=== PATIENT | female | born 1995 | race Caucasian/White ===

== ENCOUNTER 2023-03-14 10:32 | Outpatient (OUT) | payer OTHER, SELFPAY ==
--- NOTE | 2023-03-14 10:35 | US_ITS ---
The [address] [address] Patient Name: ABDIRAHMAN VARGAS MRN: [id number] date: 1995 Sex: F Assigned Patient Location: US Current Patient Location: US Accession/Order Number: [id number] Exam Date: 03/14/2023 11:05 Report Date: 03/14/2023 16:23 At the request of: CARLITO RAMEY Procedure: US pelvis w/ transvaginal EXAM: US pelvis w/ transvaginal HISTORY: Menorrhagia N92.0 COMPARISON: None. TECHNIQUE: Pelvic sonography was performed utilizing grayscale and color Doppler technique. FINDINGS: Anteverted, mildly retroflexed uterus measures 7.0 x 2.6 x 3.5 cm. Uterine endometrial stripe measures 0.5 cm in thickness. Right ovary measures 2.2 x 2.8 x 3.3 cm. Normal right ovarian parenchyma. Left ovary measures 2.4 x 2.7 x 2.2 cm. Normal left ovarian parenchyma. No significant free fluid within the pelvis. IMPRESSION: No findings to explain the patient's menorrhagia. Electronically authenticated by: FELICIA WADSWORTH Date: 03/14/2023 16:23
[2023-03-14 12:36] LABS: Estimated Average Glucose 97 mg/dL
[2023-03-14 12:49] LABS: Free T4 1.05 ng/dL (0.76-1.46)
[2023-03-14 12:52] LABS: Thyroid Stimulating Hormone 1.405 uIU/mL (0.358-3.740)
[2023-03-14 13:11] LABS: Basophils Percent Auto 0.4 % (0.2-2.0); Eosinophils Percent Auto 0.8 % (0.9-7.0); Hemoglobin 14.2 g/dL (12.0-16.0); Immature Granulocytes Abs Auto 0.01 10^3/uL (0.00-0.03); Immature Granulocytes Pct Auto 0.2 % (0.0-0.5); Lymphocytes Percent Auto 38.8 % (20.5-60.0); Mean Corpuscular Hemoglobin 29.6 pg (26.7-34.0); Mean Corpuscular Volume 89.8 fL (81.0-99.0); Mean Platelet Volume 9.7 fL (9.5-13.5); Monocytes Absolute Auto 0.3 10^3/uL (0.3-0.8); Monocytes Percent Auto 5.6 % (1.7-12.0); Neutrophils Absolute Auto 2.8 10^3/uL (1.4-6.5); Neutrophils Percent Auto 54.2 % (43.0-75.0); Platelet Count 196 10^3/uL (150-450); Red Blood Count 4.79 10^6/uL (4.20-5.40); Red Cell Distribution Width 12.2 % (11.0-15.0); White Blood Count 5.2 10^3/uL (4.0-11.0)
== END 2023-03-14 10:33 | disposition home or self-care (01) ==
LOC: US 10:32
PROVIDERS: PCP Family Medicine; Visit Provider Obstetrics & Gynecology
DX: N92.0 Excessive and frequent menstruation with regular cycle (principal)
CPT/HCPCS: 36415; 76830; 76856; 83036; 84439; 84443; 85025

== ENCOUNTER 2023-03-27 12:43 | Outpatient (OUT) | payer OTHER, SELFPAY ==
[2023-03-27 13:40] LABS: Basophils Percent Auto 0.2 % (0.2-2.0); Eosinophils Percent Auto 0.7 % (0.9-7.0); Immature Granulocytes Abs Auto 0.02 10^3/uL (0.00-0.03); Immature Granulocytes Pct Auto 0.3 % (0.0-0.5); Lymphocytes Absolute Auto 2.1 10^3/uL (1.2-3.8); Lymphocytes Percent Auto 34.4 % (20.5-60.0); Mean Corpuscular HGB Conc 33.3 g/dL (29.9-35.2); Mean Corpuscular Hemoglobin 29.8 pg (26.7-34.0); Mean Corpuscular Volume 89.4 fL (81.0-99.0); Mean Platelet Volume 9.4 fL (9.5-13.5); Monocytes Absolute Auto 0.4 10^3/uL (0.3-0.8); Monocytes Percent Auto 6.2 % (1.7-12.0); Neutrophils Absolute Auto 3.5 10^3/uL (1.4-6.5); Neutrophils Percent Auto 58.2 % (43.0-75.0); Platelet Count 210 10^3/uL (150-450); Red Cell Distribution Width 12.4 % (11.0-15.0)
[2023-03-27 13:48] LABS: INR 0.98; Partial Thromboplastin Time 27.8 sec (22.3-36.2); Prothrombin Time 10.4 sec (9.0-11.6)
[2023-03-27 14:09] LABS: Alanine Aminotransferase 55 U/L (14-59); Albumin Globulin Ratio 1.1; Albumin Level 3.8 g/dL (3.4-5.0); Alkaline Phosphatase 68 U/L (46-116); Anion Gap 10.9; Aspartate Amino Transferase 34 U/L (15-37); BUN Creatinine Ratio 11.6; Bilirubin Direct 0.1 mg/dL (0.0-0.2); Bilirubin Total 0.6 mg/dL (0.2-1.0); Calcium 8.5 mg/dL (8.5-10.1); Chloride 105 mmol/L (98-107); Estimated GFR (African America >60 (>=60); Estimated GFR (Non-African Ame >60 (>=60); Globulin 3.5 g/dL; Glucose 86 mg/dL (74-106); Potassium 3.9 mmol/L (3.5-5.1); Sodium 138 mmol/L (136-145); Total Protein 7.3 g/dL (6.4-8.2)
== END 2023-03-27 12:44 | disposition home or self-care (01) ==
LOC: PST 12:44
PROVIDERS: PCP Family Medicine; Visit Provider Obstetrics & Gynecology
DX: Z01.812 Encounter for preprocedural laboratory examination (principal); N92.0 Excessive and frequent menstruation with regular cycle; N94.6 Dysmenorrhea, unspecified; N94.10 Unspecified dyspareunia; R10.2 Pelvic and perineal pain
CPT/HCPCS: 36415; 80048; 80076; 85025; 85610; 85730; 86850; 86900; 86901

== ENCOUNTER 2023-04-10 11:18 | Day surgery (SDC) | payer OTHER, SELFPAY ==
[2023-03-27 12:54] VITALS: BMI 50.7
[2023-03-27 13:04] VITALS: BP 119/81; PULSE 82; RESP 18; TEMP 36.8; O2SAT 97
[2023-04-10] VITALS (16 sets, daily range): BP systolic 115–152; BP diastolic 74–94; PULSE 76–109; RESP 16–31; TEMP 36.3–36.8; O2SAT 92–100; BMI 49.9
[2023-04-10 11:36] LABS: Basophils Percent Auto 0.3 % (0.2-2.0); Eosinophils Percent Auto 0.5 % (0.9-7.0); Hematocrit 41.3 % (36.0-48.0); Hemoglobin 13.8 g/dL (12.0-16.0); Immature Granulocytes Abs Auto 0.01 10^3/uL (0.00-0.03); Immature Granulocytes Pct Auto 0.2 % (0.0-0.5); Lymphocytes Absolute Auto 2.3 10^3/uL (1.2-3.8); Lymphocytes Percent Auto 35.8 % (20.5-60.0); Mean Corpuscular HGB Conc 33.4 g/dL (29.9-35.2); Mean Corpuscular Hemoglobin 29.7 pg (26.7-34.0); Mean Corpuscular Volume 88.8 fL (81.0-99.0); Mean Platelet Volume 9.4 fL (9.5-13.5); Monocytes Absolute Auto 0.4 10^3/uL (0.3-0.8); Monocytes Percent Auto 6.5 % (1.7-12.0); Neutrophils Absolute Auto 3.6 10^3/uL (1.4-6.5); Neutrophils Percent Auto 56.7 % (43.0-75.0); Platelet Count 205 10^3/uL (150-450); Red Blood Count 4.65 10^6/uL (4.20-5.40); Red Cell Distribution Width 12.5 % (11.0-15.0); White Blood Count 6.3 10^3/uL (4.0-11.0)
[2023-04-10 12:00] LABS: HCG Quantitative <1 mIU/mL
[2023-04-10] MEDS: LACTATED RINGER'S SOLUTION 1,000 ML 50 ML IV ×2 (12:23→15:08)
[2023-04-10] MEDS: SCOPOLAMINE 1 EACH PATCH.TD.3 1 PATCH TD (12:25)
[2023-04-10] MEDS: CEFAZOLIN SODIUM/DEXTROSE,ISO 2 GM/50 ML PIGGYBACK IV ×2 (12:48→20:39)
--- NOTE | 2023-04-10 13:42 | PC.NURSE ---
1335-DR RAMEY TO [facility] TO [facility] ON PT. RETURNED AR 1400
--- NOTE | 2023-04-10 16:38 | P.ON_ITS ---
Brief Operative Note Date of procedure: 04/10/23 Pre-op diagnosis: dyspareunia, menorrhagia, dysmenorrhea Post-op diagnosis: same Procedure: NAME OF PROCEDURE: ? Robotic assisted laparoscopic hysterectomy with cystoscopy, bilateral salpingectomy PROCEDURE:? The patient was taken back to the operating room, where she was prepped and draped in the normal sterile fashion after being placed in the dorsal lithotomy position.? Patient?s anesthesia was found to be adequate.? Surgical timeout was performed using two patient identifiers.? SCDs were on and in place.? Two grams of Ancef were given prior to the surgery.? Sterile Brito catheter was inserted.? Standard size VCare was secured to the uterine cervix and the surgeon changed gloves.? Attention then was turned to the patient's abdomen, where a supraumbilical incision was then made.? Two S retractors were used to identify the patient?s fascia.? The fascia was then tented up using Ana clamps and the patient?s fascia was incised sharply.? Patient?s abdomen was identified and entered bluntly.? The patient had the trocar placed and a pneumoperitoneum was obtained.? Approximately 4 liters of CO2 gas was used.? The camera was then placed through the trocar.? At this time, two robot trocars were placed in the patient?s left and right side, two hand widths from the midline, and this was placed under direct visualization.? The patient?s tube on the right side was tented up and the vessel sealer was then used to come across the mesosalpinx, and this was carried down to the uterine ovarian ligament.? The vessel sealer wa s carried down serially to the broad ligament, to the area of the bladder flap, which was then created anteriorly, and the uterine arteries were skeletonized and sealed using the vessel sealer.? The colpotomy was made using the monopolar cautery on cut, and this was carried circumferentially, posteriorly to anteriorly, until the uterus was amputated.? The specimen was then removed intact through the vagina, without difficulty.? The vagina was then closed using two running V-Loc in a non-lock fashion.? The robot was undocked.? The abdomen was desufflated.? The skin defects were closed using 4-0 Vicryl.? Please note, the fascia was closed using 0 Vicryl.? Sponge, lap and needle counts were correct x2.? Patient was taken to recovery room in stable condition.? The patient was awakened by Anesthesia first.? Patient tolerated procedure well.??Please note left ovarian cystectomy was performed using the vessel sealer Anesthesia: NEW Surgeon: Noah Walton Manager Diversity: Maria Teresa Wu Estimated blood loss (mL): 100 Pathology: other (uterus, tubes and cervix) Condition: stable Disposition: PACU
--- NOTE | 2023-04-10 17:52 | PC.NURSE ---
RX for Percocet and Ibuprofen given to to get filled now
--- NOTE | 2023-04-10 19:39 | PC.NURSE ---
4 small dressings on abdomen. scant amount of blood on dressings 1, 2,and 3. dressing 4 is clean, dry, and intact.
[2023-04-10] MEDS: ONDANSETRON PF 4 MG/2 ML VIAL IV (21:38)
[2023-04-10 21:39] LABS: Basophils Percent Auto 0.1 % (0.2-2.0); Eosinophils Percent Auto 0.1 % (0.9-7.0); Hemoglobin 14.1 g/dL (12.0-16.0); Immature Granulocytes Abs Auto 0.03 10^3/uL (0.00-0.03); Immature Granulocytes Pct Auto 0.3 % (0.0-0.5); Lymphocytes Absolute Auto 0.7 10^3/uL (1.2-3.8); Lymphocytes Percent Auto 6.9 % (20.5-60.0); Mean Corpuscular HGB Conc 33.6 g/dL (29.9-35.2); Mean Corpuscular Hemoglobin 29.7 pg (26.7-34.0); Mean Corpuscular Volume 88.4 fL (81.0-99.0); Mean Platelet Volume 9.4 fL (9.5-13.5); Monocytes Absolute Auto 0.1 10^3/uL (0.3-0.8); Monocytes Percent Auto 0.8 % (1.7-12.0); Neutrophils Percent Auto 91.8 % (43.0-75.0); Platelet Count 214 10^3/uL (150-450); Red Blood Count 4.75 10^6/uL (4.20-5.40); Red Cell Distribution Width 12.4 % (11.0-15.0); White Blood Count 9.8 10^3/uL (4.0-11.0)
== END 2023-04-10 22:52 | disposition home or self-care (01) ==
LOC: SURGOUT 16:38 → MS 17:31
PROVIDERS: PCP Family Medicine; Visit Provider Obstetrics & Gynecology
PROC: (CPT 840; principal; 2023-04-10 12:30)
DX: N92.0 Excessive and frequent menstruation with regular cycle (principal); N94.10 Unspecified dyspareunia; N94.6 Dysmenorrhea, unspecified; N80.03 Adenomyosis of the uterus; Z79.899 Other long term (current) drug therapy; Z90.49 Acquired absence of other specified parts of digestive tract; E66.01 Morbid (severe) obesity due to excess calories; Z68.43 Body mass index [BMI] 50.0-59.9, adult
CPT/HCPCS: 58571; 36415; 84702; 85025; 88307; 94667; J2704

== ENCOUNTER 2023-04-27 08:05 | Emergency (ER) | payer OTHER, SELFPAY ==
[2023-04-27 08:11] VITALS: BP 144/105; PULSE 107; RESP 18; TEMP 36.6; O2SAT 100; BMI 50.6
--- NOTE | 2023-04-27 08:20 | CT_ITS ---
[address] [address] Patient Name: ABDIRAHMAN VARGAS MRN: [id number] date: 1995 Sex: F Assigned Patient Location: ER Current Patient Location: ER Accession/Order Number: [id number] Exam Date: 04/27/2023 09:03 Report Date: 04/27/2023 09:50 At the request of: CHAGO HAMMONDS Procedure: CT abdomen pelvis w con EXAMINATION: CT abdomen pelvis w con INDICATION: bleeding after hysterectomy. COMPARISON: CT abdomen pelvis 08/04/2022 TECHNIQUE: Multiple contiguous axial CT images of the abdomen and pelvis were obtained after the administration of intravenous contrast. Sagittal and coronal reconstructions were performed. Dose reduction techniques were achieved by using: automated exposure control and/or adjustment of mA and /or kV according to patient size and/or use of iterative reconstruction technique. FINDINGS: LOWER CHEST: No significant abnormality. ABDOMEN AND PELVIS: Liver: Diffuse fatty infiltration of the liver. Biliary System: Cholecystectomy. No biliary ductal dilatation. Pancreas: Normal. Spleen: Normal. Adrenal Glands: Normal. Urinary System: Normal kidneys and bladder. Reproductive organs: Hysterectomy. Gastrointestinal Tract: Normal caliber bowel. No bowel wall thickening or inflammation. Normal appendix. Vessels: Nonaneurysmal abdominal aorta . Patent abdominal vasculature. Lymph Nodes: No adenopathy. Peritoneum: No ascites or pneumoperitoneum. MUSCULOSKELETAL: Soft tissues: Small fat-containing umbilical hernia. Bones: No acute osseous abnormality or suspicious osseous lesion. HOWELL: (series:image) CT/CT abdomen pelvis w con IMPRESSION: 1. No acute abdominal or pelvic process. 2. Hepatic steatosis. Electronically authenticated by: ELIZABETH COOPER Date: 04/27/2023 09:50
--- NOTE | 2023-04-27 08:42 | ED.FEMALEGU1 ---
HPI - Female Genitourinary General Chief complaint: Urogenital-Female Stated complaint: HEAVY BLEEDING AFTER HYSTORECTOMY Time Seen by Provider: 04/27/23 08:09 Source: patient Mode of arrival: walk-in Limitations: no limitations History of Present Illness HPI Narrative: Patient had hysterectomy with Dr Walton on 04/10/23. She said that she had almost no vaginal bleeding after - she would occasionally see blood on the tissue when wiping after urinating. This morning, around 730am, she was stepping up onto a 5 inch step when she suddenly felt a gush of blood vaginally and developed moderate low abdominal pain. Bleeding has slowed but pain persists. No back pain, syncope or near syncope. Nothing taken for the pain. Related Data Home Medications Medication Instructions Recorded Confirmed albuterol sulfate 90 mcg/actuation 2 inh inhalation Q6H PRN shortness 03/27/23 04/10/23 aerosol inhaler (Ventolin HFA) of breath or wheezing bupropion HCl 150 mg 24 hr tablet, 150 mg PO QDAY 03/27/23 04/10/23 extended release orchknuhmf-mliylislptewb-qabpziph 1 cap PO Q4H PRN pain 03/27/23 04/10/23 50 mg-300 mg-40 mg capsule cyclobenzaprine 10 mg tablet 10 mg PO Q12H PRN muscle spasm 03/27/23 04/10/23 hydroxyzine HCl 25 mg tablet 25 mg PO Q6H PRN anxiety 03/27/23 04/10/23 hyoscyamine sulfate 0.125 mg 0.125 mg sublingual Q6H PRN 03/27/23 04/10/23 sublingual tablet (Levsin/SL) dyspepsia phentermine 37.5 mg tablet 37.5 mg PO QDAY 03/27/23 04/10/23 sumatriptan succinate 100 mg tablet 100 mg PO Q2H PRN migraine headache 03/27/23 04/10/23 Previous Rx's Medication Instructions Recorded ibuprofen 800 mg tablet 800 mg PO Q8H PRN pain 14 days #40 04/10/23 tabs oxycodone-acetaminophen 5 mg-325 1 tab PO Q6H PRN pain 7 days #28 04/10/23 mg tablet (Percocet) tabs Allergies Allergy/AdvReac Type Severity Reaction Status Date / Time meloxicam Allergy Headache Verified 04/27/23 08:10 hydromorphone [From Dilaudid] AdvReac Mild Nausea Verified 04/27/23 08:10 norco AdvReac Mild Nausea Uncoded 04/27/23 08:10 [facility] Medical History (Updated 04/27/23 @ 10:07 by Chago Hammonds) Surgical History (Updated 03/27/23 @ 13:10 by Deneen Ayala NP) (11/16/21) Family History (Updated 03/27/23 @ 13:10 by Deneen Ayala NP) Other Family history of DVT Family history of cancer Family history of heart disease Family history of hypertension Social History (Updated 03/27/23 @ 13:04 by Deneen Ayala NP) Within the past year, how often did you have a drink containing alcohol: monthly or less Smoking status: Unknown if ever smoked Non-prescribed substance use: denies use Previous occupational history: [employer] Highest level of school completed/degree received: high school graduate Exam Narrative Exam Narrative: Nurses notes and vital signs reviewed and patient is not hypoxic. afebrile General: Well-appearing and in no apparent distress. Skin: Warm, dry, no pallor noted. No rash. Head: Normocephalic, atraumatic. Eye: Pupils are equal, round and EOMI. No scleral icterus. Ears, Nose, Mouth, and Throat: Oral mucosa is moist Cardiovascular: Regular Rate and Rhythm without murmur, gallop or rub. Respiratory: No accessory muscle use or respiratory distress. Lungs are clear to auscultation, no wheezing, rales or rhonchi Back: No midline thoracic or lumbar vertebral tenderness. No CVA tenderness Musculoskeletal: normal ROM GI: Abdomen is soft, non-distended. Normal bowel sounds. No masses appreciated. Diffuse lower abdominal tenderness to palpation. No rebound, guarding, or rigidity noted. Neurological: A&O x4. No cranial nerve dysfunction observed. No truncal ataxia. Moves all extremities. Sensation intact. Psychiatric: Cooperative and interactive. Normal mood and affect. Constitutional Vital Signs, click to edit/add: Last Vital Signs Temp 97.9 F 04/27/23 08:11 Pulse 107 H 04/27/23 08:11 Resp 18 04/27/23 08:11 BP 144/105 H 04/27/23 08:11 Pulse Ox 100 08/20/23 08:11 O2 Del Method Room Air 04/27/23 08:11 Course Vital Signs Vital signs: Vital Signs Temperature 97.9 F 04/27/23 08:11 Pulse Rate 107 H 04/27/23 08:11 Respiratory Rate 18 04/27/23 08:11 Blood Pressure 144/105 H 04/27/23 08:11 Pulse Oximetry 100 04/27/23 08:11 Oxygen Delivery Method Room Air 04/27/23 08:11 Temperature 97.9 F 04/27/23 08:11 Pulse Rate 107 H 04/27/23 08:11 Respiratory Rate 18 04/27/23 08:11 Blood Pressure 144/105 H 04/27/23 08:11 Pulse Oximetry 100 04/27/23 08:11 Oxygen Delivery Method Room Air 04/27/23 08:11 MDM - Female Genitourinary MDM Narrative Medical decision making narrative: peripheral IV ordered to be established and blood drawn and sent for testing. CT scan of the abdomen pelvis without contrast was ordered to be given. The patient has ALLERGIES to meloxicam, hydromorphone and [place] but is able to take Percocet for pain. Lab tests were unremarkable and did not reveal anemia or hepatic insufficiency. BUN slightly elevated. CT did not reveal any worrisome findings - no evidence of blood collection or active bleeding. Patient informed of results and given reassurance. Discharged home with recommendation to see Dr Walton for follow up, return to the ED if her condition worsens or she develops syncope, near syncope, chest pain, shortness of breath or other worrisome findings. Lab Data Attestation: I reviewed the patient's lab results. Labs: Lab Results 04/27/23 Range/Units 08:55 WBC 6.6 (4.0-11.0) 10^3/uL RBC 4.47 (4.20-5.40) 10^6/uL Hgb 13.2 (12.0-16.0) g/dL Hct 40.2 (36.0-48.0) % MCV 89.9 (81.0-99.0) fL MCH 29.5 (26.7-34.0) pg MCHC 32.8 (29.9-35.2) g/dL RDW 12.8 (11.0-15.0) % Plt Count 239 (150-450) 10^3/uL MPV 9.1 L (9.5-13.5) fL Neut % (Auto) 62.0 (43.0-75.0) % Lymph % (Auto) 31.0 (20.5-60.0) % [place] % (Auto) 6.0 (1.7-12.0) % Eos % (Auto) 0.6 L (0.9-7.0) % Baso % (Auto) 0.2 (0.2-2.0) % Neut # (Auto) 4.1 (1.4-6.5) 10^3/uL Lymph # (Auto) 2.1 (1.2-3.8) 10^3/uL [place] # (Auto) 0.4 (0.3-0.8) 10^3/uL Eos # (Auto) 0.0 (0.0-0.7) 10^3/uL Baso # (Auto) 0.0 (0.0-0.1) 10^3/uL Abs Immat Gran (auto) 0.01 (0.00-0.03) 10^3/uL Imm/Tot Granulo (auto) 0.2 (0.0-0.5) % PT 10.0 (9.0-11.6) sec INR 0.94 APTT 27.3 (22.3-36.2) sec Sodium 137 (136-145) mmol/L Potassium 3.6 (3.5-5.1) mmol/L Chloride 102 (98-107) mmol/L Carbon Dioxide 26.3 (21.0-32.0) mmol/L Anion Gap 12.3 BUN 21.0 H (7.0-18.0) mg/dL Creatinine 0.72 (0.55-1.02) mg/dL Est GFR ( Amer) >60 (>=60) Est GFR (Non-Af Amer) >60 (>=60) BUN/Creatinine Ratio 29.2 Glucose 97 (74-106) mg/dL Calcium 8.3 L (8.5-10.1) mg/dL Total Bilirubin 0.3 (0.2-1.0) mg/dL AST 17 (15-37) U/L ALT 39 (14-59) U/L Alkaline Phosphatase 72 (46-116) U/L Total Protein 7.6 (6.4-8.2) g/dL Albumin 3.7 (3.4-5.0) g/dL Globulin 3.9 g/dL Albumin/Globulin Ratio 0.[address] scan - abdomen: Radiologist's impression: Patient Name: ABDIRAHMAN VARGAS MRN: [id number] date: 1995 Sex: F Assigned Patient Location: ER Current Patient Location: ER Accession/Order Number: [id number] Exam Date: 04/27/2023 09:03 Report Date: 04/27/2023 09:50 At the request of: CHAGO HAMMONDS Procedure: CT abdomen pelvis w con EXAMINATION: CT abdomen pelvis w con INDICATION: bleeding after hysterectomy. COMPARISON: CT abdomen pelvis 08/04/2022 TECHNIQUE: Multiple contiguous axial CT images of the abdomen and pelvis were obtained after the administration of intravenous contrast. Sagittal and coronal reconstructions were performed. Dose reduction techniques were achieved by using: automated exposure control and/or adjustment of mA and /or kV according to patient size and/or use of iterative reconstruction technique. FINDINGS: LOWER CHEST: No significant abnormality. ABDOMEN AND PELVIS: Liver: Diffuse fatty infiltration of the liver. Biliary System: Cholecystectomy. No biliary ductal dilatation. Pancreas: Normal. Spleen: Normal. Adrenal Glands: Normal. Urinary System: Normal kidneys and bladder. Reproductive organs: Hysterectomy. Gastrointestinal Tract: Normal caliber bowel. No bowel wall thickening or inflammation. Normal appendix. Vessels: Nonaneurysmal abdominal aorta . Patent abdominal vasculature. Lymph Nodes: No adenopathy. Peritoneum: No ascites or pneumoperitoneum. MUSCULOSKELETAL: Soft tissues: Small fat-containing umbilical hernia. Bones: No acute osseous abnormality or suspicious osseous lesion. HOWELL: (series:image) IMPRESSION: 1. No acute abdominal or pelvic process. 2. Hepatic steatosis. Electronically authenticated by: ELIZABETH COOPER Date: 04/27/2023 09:50 Discharge Plan Discharge Chief Complaint: Urogenital-Female Clinical Impression: Abnormal vaginal bleeding Time of Disposition Decision: 10:07 Prescriptions / Home Meds: No Action albuterol sulfate [Ventolin HFA] 90 mcg/actuation HFA aerosol inhaler 2 inh INHALATION Q6H PRN (Reason: shortness of breath or wheezing) bupropion HCl 150 mg tablet extended release 24 hr 150 mg PO QDAY cyclobenzaprine 10 mg tablet 10 mg PO Q12H PRN (Reason: muscle spasm) hydroxyzine HCl 25 mg tablet 25 mg PO Q6H PRN (Reason: anxiety) hyoscyamine sulfate [Levsin/SL] 0.125 mg tablet, sublingual 0.125 mg sublingual Q6H PRN (Reason: dyspepsia) phentermine 37.5 mg tablet 37.5 mg PO QDAY sumatriptan succinate 100 mg tablet 100 mg PO Q2H PRN (Reason: migraine headache) tjscxegkxr-mphmjztykdsax-hkyq 50-300-40 mg capsule 1 cap PO Q4H PRN (Reason: pain) ibuprofen 800 mg tablet 800 mg PO Q8H PRN (Reason: pain) 14 Days Qty: 40 0RF oxycodone-acetaminophen [Percocet] 5-325 mg tablet 1 tab PO Q6H PRN (Reason: pain) 7 Days Qty: 28 0RF Instructions: Vaginal Hysterectomy (DC) Stand Alone Forms: Portal Instructions Referrals: Noah Walton DO [Physician] - As soon as possible
[2023-04-27 09:04] LABS: Basophils Percent Auto 0.2 % (0.2-2.0); Eosinophils Percent Auto 0.6 % (0.9-7.0); Hematocrit 40.2 % (36.0-48.0); Hemoglobin 13.2 g/dL (12.0-16.0); Immature Granulocytes Abs Auto 0.01 10^3/uL (0.00-0.03); Immature Granulocytes Pct Auto 0.2 % (0.0-0.5); Lymphocytes Absolute Auto 2.1 10^3/uL (1.2-3.8); Mean Corpuscular HGB Conc 32.8 g/dL (29.9-35.2); Mean Corpuscular Hemoglobin 29.5 pg (26.7-34.0); Mean Corpuscular Volume 89.9 fL (81.0-99.0); Mean Platelet Volume 9.1 fL (9.5-13.5); Monocytes Absolute Auto 0.4 10^3/uL (0.3-0.8); Neutrophils Absolute Auto 4.1 10^3/uL (1.4-6.5); Platelet Count 239 10^3/uL (150-450); Red Blood Count 4.47 10^6/uL (4.20-5.40); Red Cell Distribution Width 12.8 % (11.0-15.0); White Blood Count 6.6 10^3/uL (4.0-11.0)
[2023-04-27 09:20] LABS: Alanine Aminotransferase 39 U/L (14-59); Albumin Globulin Ratio 0.9; Albumin Level 3.7 g/dL (3.4-5.0); Alkaline Phosphatase 72 U/L (46-116); Anion Gap 12.3; Aspartate Amino Transferase 17 U/L (15-37); BUN Creatinine Ratio 29.2; Bilirubin Total 0.3 mg/dL (0.2-1.0); Calcium 8.3 mg/dL (8.5-10.1); Carbon Dioxide 26.3 mmol/L (21.0-32.0); Chloride 102 mmol/L (98-107); Estimated GFR (African America >60 (>=60); Estimated GFR (Non-African Ame >60 (>=60); Globulin 3.9 g/dL; Glucose 97 mg/dL (74-106); Potassium 3.6 mmol/L (3.5-5.1); Sodium 137 mmol/L (136-145); Total Protein 7.6 g/dL (6.4-8.2)
[2023-04-27 09:22] LABS: INR 0.94; Partial Thromboplastin Time 27.3 sec (22.3-36.2)
[2023-04-27] MEDS: KETOROLAC TROMETHAMINE 30 MG/ML VIAL IVP (09:44)
[2023-04-27 09:47] LABS: Bilirubin Urine NEGATIVE (NEGATIVE); Blood Urine LARGE (NEGATIVE); Clarity Urine CLEAR (CLEAR); Color Urine LT. YELLOW (YELLOW); Glucose Urine UA NEGATIVE (NEGATIVE); Ketones Urine NEGATIVE (NEGATIVE); Leukocyte Esterase Urine NEGATIVE (NEGATIVE); Nitrite Urine NEGATIVE (NEGATIVE); Protein Urine NEGATIVE (NEG/TRACE); Urobilinogen Urine 0.2 EU/dL (0.2-1.0); pH Urine 5.5 (5.0-9.0)
[2023-04-27 10:13] LABS: Urine Microscopic Indicated YES
[2023-04-27 10:15] VITALS: BP 142/80
[2023-04-27 10:16] LABS: Bacteria Urine NONE SEEN #/HPF (NONE SEEN); Mucus Urine NONE SEEN (NONE SEEN); Squamous Epithelial Cell Urine FEW #/LPF (NONE/RARE); WBC Urine NONE SEEN #/HPF (NONE SEEN)
[2023-04-27 10:17] LABS: Urine Culture Indicated NO
== END 2023-04-27 10:22 | disposition home or self-care (01) ==
PROVIDERS: Emergency Provider Emergency Medicine; PCP Family Medicine
DX: N93.9 Abnormal uterine and vaginal bleeding, unspecified (principal); Z90.710 Acquired absence of both cervix and uterus; Z79.899 Other long term (current) drug therapy
CPT/HCPCS: 36415; 74177; 80053; 81001; 85025; 85610; 85730; 86850; 86900; 86901; 96374; 99284; Q9967

== ENCOUNTER 2023-06-17 14:43 | Outpatient (OUT) | payer OTHER, SELFPAY ==
--- NOTE | 2023-06-17 | XR_ITS ---
The [address] [address] Patient Name: ABDIRAHMAN VARAGS MRN: [id number] date: 1995 Sex: F Assigned Patient Location: [facility] Current Patient Location: [facility] Accession/Order Number: [id number] Exam Date: 06/17/2023 10:39 Report Date: 06/17/2023 15:33 At the request of: ISH EDGAR Procedure: XR ankle RT min 3V EXAM: XR ankle RT min 3V, 06/17/2023 COMPARISON STUDY: Right ankle 04/09/2019 FINDINGS: Frontal, oblique, and lateral views for 3 views obtained. HISTORY: RIGHT ANKLE PAIN XR/XR ankle RT min 3V IMPRESSION: 1. Subcentimeter subchondral lucencies with thin sclerotic margins involving the medial aspect of the talar dome has transverse width on the ankle mortise image at 5.5 mm. This is presumably related to an osteochondral defect. 2. Prior internal fixation about the distal tibiofibular syndesmotic region noted. No acute fracture or dislocation. 3. Ankle mortise is intact as is the alignment. The alignment is satisfactory. 4. 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 5. Small plantar calcaneal enthesophyte is noted. Incidental note of subcentimeter scattered dystrophic calcifications involving the anterior distal calf. There is no radiopaque foreign body. Electronically authenticated by: ANTOINE REY Date: 06/17/2023 15:33
== END 2023-06-17 14:44 | disposition home or self-care (01) ==
LOC: RAD 14:43
PROVIDERS: PCP Family Medicine; Visit Provider Physician Assistant
DX: M25.571 Pain in right ankle and joints of right foot (principal); M19.071 Primary osteoarthritis, right ankle and foot; M77.31 Calcaneal spur, right foot
CPT/HCPCS: 73610

== ENCOUNTER 2023-07-03 13:56 | Outpatient (RCR) | payer OTHER, SELFPAY | END 2023-07-07 15:09 | disposition home or self-care (01) | LOC: PT 13:56 | PROVIDERS: PCP Family Medicine; Visit Provider Physician Assistant | DX: M24.572 Contracture, left ankle (principal); M24.571 Contracture, right ankle; M72.2 Plantar fascial fibromatosis; M76.62 Achilles tendinitis, left leg; M76.61 Achilles tendinitis, right leg | CPT/HCPCS: 97110; 97140; 97163 ==

== ENCOUNTER 2023-08-14 11:52 | Emergency (ER) | payer OTHER, SELFPAY ==
[2023-08-14 11:59] VITALS: BP 175/98; PULSE 91; RESP 18; TEMP 36.8; O2SAT 100; BMI 54.2
--- NOTE | 2023-08-14 12:16 | ED_ITS ---
HPI - Abdominal Pain General Chief Complaint: Abdominal Pain Stated Complaint: LOWER ABDOMINAL PAIN Time Seen by Provider: 08/14/23 12:16 Source: patient Mode of arrival: walk-in Limitations: no limitations History of Present Illness HPI narrative: presents with right lower quadrant abdominal pain. Started approximately twenty-four hours ago. She's been taking fever reducers but she doesn't know she is actually run a fever. She's not had vomiting or diarrhea. Past surgical history includes cholecystectomy partial hysterectomy. She's also had section. She's not been taking any antibiotics. She was seen her family doctor's office earlier today and they suspected appendicitis. [facility] for workup. He did eat two cheese sticks at approximately 9:30 this morning. Related Data Home Medications Medication Instructions Recorded Confirmed albuterol sulfate 90 mcg/actuation 2 inh inhalation Q6H PRN shortness 03/27/23 08/14/23 aerosol inhaler (Ventolin HFA) of breath or wheezing bupropion HCl 150 mg 24 hr tablet, 150 mg PO QDAY 03/27/23 04/10/23 extended release unjaxecepx-elsuroivulban-crnsgycx 1 cap PO Q4H PRN pain 03/27/23 08/14/23 50 mg-300 mg-40 mg capsule cyclobenzaprine 10 mg tablet 10 mg PO Q12H PRN muscle spasm 03/27/23 08/14/23 phentermine 37.5 mg tablet 37.5 mg PO QDAY 03/27/23 08/14/23 sumatriptan succinate 100 mg tablet 100 mg PO Q2H PRN migraine headache 03/27/23 08/14/23 citalopram 20 mg tablet 20 mg PO DAILY 08/14/23 08/14/23 Previous Rx's Medication Instructions Recorded ibuprofen 800 mg tablet 800 mg PO Q8H PRN pain 14 days #40 04/10/23 tabs Allergies Allergy/AdvReac Type Severity Reaction Status Date / Time meloxicam Allergy Headache Verified 04/27/23 08:10 hydromorphone [From Dilaudid] AdvReac Mild Nausea Verified 04/27/23 08:10 norco AdvReac Mild Nausea Uncoded 04/27/23 08:10 PFSH PFS Medical History (Updated 08/14/23 @ 14:50 by Rigoberto Alarcon MD) Migraine ?G43.909 - Migraine, unspecified, not intractable, without status migrainosus (ICD-10) Sleep apnea ?G47.30 - Sleep apnea, unspecified (ICD-10) Bronchitis ?J40 - Bronchitis, not specified as acute or chronic (ICD-10) Kidney stones ?N20.0 - Calculus of kidney (ICD-10) Postoperative nausea and vomiting ?R11.2 - Nausea with vomiting, unspecified (ICD-10) ?Z98.890 - Other specified postprocedural states (ICD-10) Hernia ?K46.9 - Unspecified abdominal hernia without obstruction or gangrene (ICD- 10) Pelvic pain ?R10.2 - Pelvic and perineal pain (ICD-10) Dyspareunia Dysmenorrhea ?N94.6 - Dysmenorrhea, unspecified (ICD-10) Menorrhagia ?N92.0 - Excessive and frequent menstruation with regular cycle (ICD-10) Surgical History (Updated 03/27/23 @ 13:10 by Deneen Ayala NP) History of section ?Z98.891 - History of uterine scar from previous surgery (ICD-10) History of section ?Z98.891 - History of uterine scar from previous surgery (ICD-10) H/O tubal ligation ?Z98.51 - Tubal ligation status (ICD-10) H/O lithotripsy ?Z98.890 - Other specified postprocedural states (ICD-10) History of endometrial ablation (11/16/21) ?Z98.890 - Other specified postprocedural states (ICD-10) History of cholecystectomy ?Z90.49 - Acquired absence of other specified parts of digestive tract (ICD- 10) History of ankle surgery ?Z98.890 - Other specified postprocedural states (ICD-10) Family History (Updated 03/27/23 @ 13:10 by Deneen Ayala NP) Other Family history of DVT Family history of cancer Family history of heart disease Family history of hypertension Social History (Updated 03/27/23 @ 13:04 by Deneen Ayala NP) Within the past year, how often did you have a drink containing alcohol: monthly or less Smoking status: Never smoker Non-prescribed substance use: denies use 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 Is not writhing about she's tend to lie still. Abdomen exam shows previous incisions. Difficult to exam but there is no real peritoneal findings. She does have tenderness on the right side to deep palpation. There is no rebound as I said. Bowel sounds are noted. The remainder of exam, cardiovascular is normal. Constitutional Vital Signs, click to edit/add: Last Vital Signs Temp 98.3 F 08/14/23 11:59 Pulse 100 H 08/14/23 14:29 Resp 18 08/14/23 14:29 BP 167/101 H 08/14/23 14:29 Pulse Ox 100 08/14/23 14:29 Course Vital Signs Vital signs: Vital Signs Temperature 98.3 F 08/14/23 11:59 Pulse Rate 91 H 08/14/23 11:59 Respiratory Rate 18 08/14/23 11:59 Blood Pressure 175/98 H 08/14/23 11:59 Pulse Oximetry 100 08/14/23 11:59 Temperature 98.3 F 08/14/23 11:59 Pulse Rate 100 H 08/14/23 14:29 Respiratory Rate 18 08/14/23 14:29 Blood Pressure 167/101 H 08/14/23 14:29 Pulse Oximetry 100 08/14/23 14:29 MDM - Abdominal Pain MDM Narrative Medical decision making narrative: patient is afebrile, white blood count normal. Pancreas testing normal. CT without contrast was done and shows a normal appendix and other normal intra- abdominal pathology. I reevaluated the patient and she is more comfortable now she did receive a small dose of analgesics. No indication of acute abdomen at this time Lab Data Labs: Lab Results 08/14/23 08/14/23 Range/Units 12:39 13:05 WBC 7.1 (4.0-11.0) 10^3/uL RBC 4.38 (4.20-5.40) 10^6/uL Hgb 13.0 (12.0-16.0) g/dL Hct 40.0 (36.0-48.0) % MCV 91.3 (81.0-99.0) fL MCH 29.7 (26.7-34.0) pg MCHC 32.5 (29.9-35.2) g/dL RDW 11.9 (11.0-15.0) % Plt Count 172 (150-450) 10^3/uL MPV 9.6 (9.5-13.5) fL Neut % (Auto) 62.5 (43.0-75.0) % Lymph % (Auto) 31.9 (20.5-60.0) % [place] % (Auto) 4.8 (1.7-12.0) % Eos % (Auto) 0.4 L (0.9-7.0) % Baso % (Auto) 0.1 L (0.2-2.0) % Neut # (Auto) 4.4 (1.4-6.5) 10^3/uL Lymph # (Auto) 2.3 (1.2-3.8) 10^3/uL [place] # (Auto) 0.3 (0.3-0.8) 10^3/uL Eos # (Auto) 0.0 (0.0-0.7) 10^3/uL Baso # (Auto) 0.0 (0.0-0.1) 10^3/uL Abs Immat Gran (auto) 0.02 (0.00-0.03) 10^3/uL Imm/Tot Granulo (auto) 0.3 (0.0-0.5) % Sodium 140 (136-145) mmol/L Potassium 3.7 (3.5-5.1) mmol/L Chloride 103 (98-107) mmol/L Carbon Dioxide 26.4 (21.0-32.0) mmol/L Anion Gap 14.3 BUN 11.0 (7.0-18.0) mg/dL Creatinine 0.71 (0.55-1.02) mg/dL Est GFR ( Amer) >60 (>=60) Est GFR (Non-Af Amer) >60 (>=60) BUN/Creatinine Ratio 15.5 Glucose 93 (74-106) mg/dL Calcium 8.8 (8.5-10.1) mg/dL Total Bilirubin 0.5 (0.2-1.0) mg/dL AST 19 (15-37) U/L ALT 40 (14-59) U/L Alkaline Phosphatase 78 (46-116) U/L Total Protein 7.7 (6.4-8.2) g/dL Albumin 3.9 (3.4-5.0) g/dL Globulin 3.8 g/dL Albumin/Globulin Ratio 1.0 Lipase 20.0 (16.0-77.0) U/L Urine Color Yellow (YELLOW) Urine Clarity Clear (CLEAR) Urine pH 5.5 (5.0-9.0) Ur Specific [place] >=1.030 A (1.005-1.025) Urine Protein Negative (NEG/TRACE) mg/dL Urine Glucose (UA) Negative (NEGATIVE) mg/dL Urine Ketones Negative (NEGATIVE) mg/dL Urine Occult Blood Trace-i (NEGATIVE) Urine Nitrite Negative (NEGATIVE) Urine Bilirubin Negative (NEGATIVE) Urine Urobilinogen 0.2 (0.2-1.0) EU/dL Ur Leukocyte Esterase Negative (NEGATIVE) Discharge Plan Discharge Chief Complaint: Abdominal Pain Clinical Impression: Abdominal pain Patient Disposition: Home, Self-Care Time of Disposition Decision: 14:50 Prescriptions / Home Meds: No Action albuterol sulfate [Ventolin HFA] 90 mcg/actuation HFA aerosol inhaler 2 inh INHALATION Q6H PRN (Reason: shortness of breath or wheezing) bupropion HCl 150 mg tablet extended release 24 hr 150 mg PO QDAY cyclobenzaprine 10 mg tablet 10 mg PO Q12H PRN (Reason: muscle spasm) phentermine 37.5 mg tablet 37.5 mg PO QDAY sumatriptan succinate 100 mg tablet 100 mg PO Q2H PRN (Reason: migraine headache) pvwuigqnmc-bddahrtlubqhz-aeer 50-300-40 mg capsule 1 cap PO Q4H PRN (Reason: pain) ibuprofen 800 mg tablet 800 mg PO Q8H PRN (Reason: pain) 14 Days Qty: 40 0RF citalopram 20 mg tablet 20 mg PO DAILY Additional Instructions: return for fever or worse pain. Follow primary care doctor Stand Alone Forms: Portal Instructions Referrals: Rojelio Donato MD [Primary Care Provider] - 1 week
--- NOTE | 2023-08-14 12:18 | CT_ITS ---
[address] [address] Patient Name: ABDIRAHMAN VARGAS MRN: [id number] date: 1995 Sex: F Assigned Patient Location: ER Current Patient Location: ER Accession/Order Number: [id number] Exam Date: 08/14/2023 13:05 Report Date: 08/14/2023 13:28 At the request of: KRISHNA LEWIS Procedure: CT abdomen pelvis wo con EXAM: CT scan of the abdomen and pelvis without contrast. Dose reduction technique used: Automated exposure control and/or adjustment of the mA and/or kV according to patient size and/or use of iterative reconstruction technique. REASON FOR EXAM: right lower quadrant pain COMPARISON: CT scan dated 04/27/2023 FINDINGS: Moderate-sized fat-containing ventral hernia. Sclerotic changes along the sacroiliac joints bilaterally may represent osteitis condensans ilii versus sacroiliitis. Cholecystectomy. Hysterectomy. Diffuse hepatic steatosis. No renal, ureteral or bladder calculi. No hydronephrosis. Normal appendix. No free fluid in the abdomen or pelvis. No free intraperitoneal air. No dilated or thickened loops of small bowel or colon. Liver, pancreas, spleen, bilateral kidneys, and bilateral adrenal glands are otherwise unremarkable within the limitations of noncontrast CT. No lymphadenopathy in the abdomen or pelvis. Remainder unremarkable. CT/CT abdomen pelvis wo con IMPRESSION: 1. No acute abnormalities in the abdomen or pelvis. 2. Diffuse hepatic steatosis. 3. Ventral hernia. Electronically authenticated by: MIMI BONNER Date: 08/14/2023 13:28
[2023-08-14 13:08] LABS: Basophils Percent Auto 0.1 % (0.2-2.0); Eosinophils Percent Auto 0.4 % (0.9-7.0); Immature Granulocytes Abs Auto 0.02 10^3/uL (0.00-0.03); Immature Granulocytes Pct Auto 0.3 % (0.0-0.5); Lymphocytes Absolute Auto 2.3 10^3/uL (1.2-3.8); Lymphocytes Percent Auto 31.9 % (20.5-60.0); Mean Corpuscular HGB Conc 32.5 g/dL (29.9-35.2); Mean Corpuscular Hemoglobin 29.7 pg (26.7-34.0); Mean Corpuscular Volume 91.3 fL (81.0-99.0); Mean Platelet Volume 9.6 fL (9.5-13.5); Monocytes Absolute Auto 0.3 10^3/uL (0.3-0.8); Monocytes Percent Auto 4.8 % (1.7-12.0); Neutrophils Absolute Auto 4.4 10^3/uL (1.4-6.5); Neutrophils Percent Auto 62.5 % (43.0-75.0); Platelet Count 172 10^3/uL (150-450); Red Blood Count 4.38 10^6/uL (4.20-5.40); Red Cell Distribution Width 11.9 % (11.0-15.0); White Blood Count 7.1 10^3/uL (4.0-11.0)
[2023-08-14 13:24] LABS: Alanine Aminotransferase 40 U/L (14-59); Albumin Level 3.9 g/dL (3.4-5.0); Alkaline Phosphatase 78 U/L (46-116); Anion Gap 14.3; Aspartate Amino Transferase 19 U/L (15-37); BUN Creatinine Ratio 15.5; Bilirubin Total 0.5 mg/dL (0.2-1.0); Calcium 8.8 mg/dL (8.5-10.1); Carbon Dioxide 26.4 mmol/L (21.0-32.0); Chloride 103 mmol/L (98-107); Estimated GFR (African America >60 (>=60); Estimated GFR (Non-African Ame >60 (>=60); Globulin 3.8 g/dL; Glucose 93 mg/dL (74-106); Potassium 3.7 mmol/L (3.5-5.1); Sodium 140 mmol/L (136-145); Total Protein 7.7 g/dL (6.4-8.2)
[2023-08-14] MEDS: MORPHINE SULFATE 2 MG/ML SYRINGE IV (14:00)
[2023-08-14] MEDS: 0.9 % SODIUM CHLORIDE 1,000 ML 999 ML IV (14:00)
[2023-08-14 14:29] VITALS: BP 167/101; PULSE 100; RESP 18; O2SAT 100
[2023-08-14 14:41] LABS: Bilirubin Urine NEGATIVE (NEGATIVE); Blood Urine TRACE-I (NEGATIVE); Clarity Urine CLEAR (CLEAR); Color Urine YELLOW (YELLOW); Glucose Urine UA NEGATIVE (NEGATIVE); Ketones Urine NEGATIVE (NEGATIVE); Leukocyte Esterase Urine NEGATIVE (NEGATIVE); Nitrite Urine NEGATIVE (NEGATIVE); Protein Urine NEGATIVE (NEG/TRACE); Specific Gravity Urine >=1.030 (1.005-1.025); Urine Microscopic Indicated YES; Urobilinogen Urine 0.2 EU/dL (0.2-1.0); pH Urine 5.5 (5.0-9.0)
[2023-08-14 14:47] LABS: WBC Urine NONE SEEN #/HPF (NONE SEEN)
[2023-08-14 14:48] LABS: Bacteria Urine TRACE #/HPF (NONE SEEN); Cast Seen? NONE SEEN #/LPF (NONE SEEN); Crystals Seen? None Seen #/HPF (None Seen); Mucus Urine NONE SEEN (NONE SEEN); RBC Urine 0-2 #/HPF (0-2); Squamous Epithelial Cell Urine FEW #/LPF (NONE/RARE)
== END 2023-08-14 15:05 | disposition home or self-care (01) ==
PROVIDERS: Emergency Provider Emergency Medicine Emergency Medical Services; PCP Family Medicine
DX: R10.9 Unspecified abdominal pain (principal); G47.30 Sleep apnea, unspecified; Z87.442 Personal history of urinary calculi; Z98.891 History of uterine scar from previous surgery; Z90.49 Acquired absence of other specified parts of digestive tract; Z90.711 Acquired absence of uterus with remaining cervical stump; Z79.899 Other long term (current) drug therapy; Z98.51 Tubal ligation status; Z98.890 Other specified postprocedural states
CPT/HCPCS: 36415; 74176; 80053; 81001; 83690; 85025; 96374; 99284

== ENCOUNTER 2023-10-14 10:52 | Outpatient (OUT) | payer OTHER, SELFPAY ==
--- NOTE | 2023-10-14 10:55 | US_ITS ---
The [address] [address] Patient Name: ABDIRAHMAN VARGAS MRN: [id number] date: 1995 Sex: F Assigned Patient Location: [facility] Current Patient Location: [facility] Accession/Order Number: [id number] Exam Date: 10/14/2023 10:55 Report Date: 10/14/2023 12:52 At the request of: CARLITO RAMEY Procedure: US pelvis w/ transvaginal EXAM: Pelvic ultrasound HISTORY: . PELVIC PAIN . COMPARISON: 03/14/2023 TECHNIQUE: Transabdominal and transvaginal scanning was performed FINDINGS: Scanning of the pelvis demonstrates absence of the uterus. Right ovary was not visualized. Left ovary measures 2 x 2.9 x 2.6 cm. Color-flow is noted. Follicles are noted. No masses are noted. No fluid is noted in the cul-de-sac. US/US pelvis w/ transvaginal IMPRESSION: 1. Absent uterus. 2. Normal-appearing left ovary with color flow. 3. Right ovary was not identified. Electronically authenticated by: AYAD BIGGS Date: 10/14/2023 12:52
--- OUTSIDE RECORDS SUMMARY | 2023-10-14 11:08 | XMS_ITS | CCD ---
Author Name Unknown Address [address] [place] [address] Organization [facility] Care Team Providers Care Radiation Control Health Physicist Name Role Phone Carlito Walton DO Unavailable [phone] SEAMUS Chaves, DR PADILLA Primary Care Unavailable TARA SAN Admitting Unavailable TARA SAN Attending Unavailable TARA SAN Consulting Unavailable SEAMUS ., DR PADILLA Primary Care Unavailable ULYSSES ., MIMI STEEN Attending Unavailable ULYSSES .MIMI Admitting Unavailable GUY, AMAR Admitting Unavailable GELY TOAVRAR Attending Unavailable SEAMUS ., DR PADILLA Primary Care Unavailable SEAMUS ., DR PADILLA Primary Care Unavailable MARKER ., DR BECERRA Admitting Unavailable MARKER ., DR BECERRA Attending Unavailable GRECHAMADOR ., MITESH RAPHAEL Consulting Unavailabl e MARKER ., DR BECERRA Consulting Unavailable YENI PARNELL Consulting Unavailable GRECHNY ., MITESH RAPHAEL Consulting Unavailabl e TARA SAN Attending Unavailable TARA SAN Admitting Unavailable SEAMUS ., DR PADILLA Primary Care Unavailable TARA SAN Consulting Unavailable ISH EDGAR Admitting Unavailable ISH EDGAR Attending Unavailable SEAMUS ., DR PADILLA Primary Care Unavailable WRIGHT, DR AYAD Matamoros Consulting Unavailable ISH EDGAR Consulting Unavailable KAROLINE ., DR ESTEBAN Consulting Unavailable SEAMUS ., DR PADILLA Primary Care Unavailable KAROLINE ., DR ESTEBAN Attending Unavailable KAROLINE ., DR ESTEBAN Admitting Unavailable ISH EDGAR Consulting Unavailable SEAMUS ., DR PADILLA Primary Care Unavailable SERGIO EDGARLY Attending Unavailable ISH EDGAR Admitting Unavailable NISREEN DUNNE Consulting Unavailable HOY ., DR PADILLA Consulting Unavailable HOY ., DR PADILLA Primary Care Unavailable HOY ., DR PADILLA Attending Unavailable HOY ., DR PADILLA Admitting Unavailable WEST, DR AYAD Matamoros Consulting Unavailable KAROLINE ., DR ESTEBAN Admitting Unavailable KAROLINE ., DR ESTEBAN Attending Unavailable HOY ., DR PADILLA Primary Care Unavailable KAROLINE ., DR ESTEBAN Consulting Unavailable AYAD BIGGS Consulting Unavailable TALA, ISH Admitting Unavailable TALA, ISH Attending Unavailable HOY ., DR PADILLA Primary Care Unavailable WEST, DR AYAD Matamoros Consulting Unavailable TALA, ISH Consulting Unavailable CHARUNATALIE Consulting Unavailable MERLE ., VIN Attending Unavailable MERLE ., VIN Admitting Unavailable HOY ., DR PADILLA Primary Care Unavailable NATALIE BOX Consulting Unavailable PAY ., DR CROSS Attending Unavailable PAY ., DR CROSS Admitting Unavailable HOY ., DR PADILLA Primary Care Unavailable HOY ., DR PADILLA Primary Care Unavailable PAY ., DR CROSS Admitting Unavailable PAY ., DR CROSS Attending Unavailable PAY ., DR CROSS Consulting Unavailable GRECHNY ., MITESH RAPHAEL Consulting UnavailAYAD Francis Consulting Unavailable MARKER ., DR BECERRA Consulting Unavailable MARKER ., DR BECERRA Attending Unavailable MARKER ., DR BECERRA Admitting Unavailable HOY ., DR PADILLA Primary Care Unavailable JOSIE KING Consulting Unavailable TARA SAN Consulting Unavailable TARA SAN Attending Unavailable TARA SAN Admitting Unavailable HOY ., DR PADILLA Primary Care Unavailable Ish Hector Consulting Unavailable Jolene Burdick Consulting Unavailable BERE COONEY Attending UnavailCarmen Ortega Attending Unavailable Allergies Allergy Classification Reported Allergen(s) Allergy Type Date of Onset Reaction(s) Facility (2 sources) meloxicam Drug Allergy 2 Other: See Comments [facility] (2 sources) Acetaminophen / HYDROcodone; Translations: [Thurston] Drug Allergy [facility] (2 sources) HYDROmorphone; Translations: [Dilaudid] Drug Allergy [facility] (1 source) meloxicam Drug Allergy [facility] Medications Completed/Discontinued Medications Medication Drug Class(es) Dates Sig (Normalized) Sig (Original) acetaminophen 325 mg / butalbital 50 mg / caffeine 40 mg oral capsule (2 sources) Barbiturate, Central Nervous System Stimulant, Methylxanthine Start: 03-19-2022 acetaminophen 325 mg-caffeine 40 mg-butalbital 50 mg (FIORICET) per capsule as needed. 0 03/19/2022 Active Comment on above: as needed. acetaminophen 300 mg / codeine phosphate 30 mg oral tablet (2 sources) Opioid Agonist Start: 04-22-2022 take 1 tablet by mouth every six hours as needed acetaminophen-code ine (TYLENOL-COD #3) 300-30 mg per tablet Take 1 tablet by mouth every 6 hours as needed. 0 04/22/2022 Active Comment on above: Take 1 tablet by viri th every 6 hours as needed. FLUoxetine 10 mg oral capsule (2 sources) Serotonin Reuptake Inhibitor take 1 capsule by mouth once daily FLUoxetine (PROZAC) 10 mg capsule Take 10 mg by mouth once daily. 0 Active Comment on above: Take 10 mg by mouth once daily. naratriptan 2.5 mg oral tablet (2 sources) Serotonin-1b and Serotonin-1d Receptor Agonist Start: 04-21-2022 take 1 tablet by mouth once daily naratriptan (AMERGE) 2.5 mg tablet Take 2.5 mg by mouth once daily. 0 04/21/2022 Active Comment on above: Take 2.5 mg by mouth once daily. phentermine hydrochloride 37.5 mg oral capsule (2 sources) Sympathomimetic Amine Anorectic Start: 04-18-2022 take 1 capsule by mouth once daily Phentermine HCl 37.5 mg capsule Take 37.5 mg by mouth once daily. 0 04/18/2022 Active Comment on above: Take 37.5 mg by mout h once daily. tiZANidine 4 mg oral tablet (2 sources) Central alpha-2 Adrenergic Agonist Start: 03-01-2022 tiZANidine (ZANAFLEX) 4 mg tablet Take 8 mg by mouth as needed. 0 03/01/2022 Active Comment on above: Take 8 mg by mouth a s needed. Problems Active Problems Problem Classification Problem Date Documented Date Episodic/Chronic Administrative/social admission (1 source) Patient encounter status; Translations: [Dietary counseling and surveillance] Episodic Asthma (1 source) Unspecified asthma, uncomplicated; Translations: [UNSPECIFIED ASTHMA UNCOMPLICATED] Onset: 12-31-2022 Chronic Conditions associated with dizziness or vertigo (1 source) Dizziness and giddiness; Translations: [DIZZINESS AND GIDDINESS] Onset: 10-17-2022 Episodic Headache; including migraine (4 sources) Headache; including migraine; Translations: [HEADACHE UNSPECIFIED] Onset: 10-14-2022 Immunizations and screening for infectious disease (1 source) Encounter for screening for human papillomavirus (HPV); Translations: [ENC SCREENING HUMAN PAPILLOMAVIRUS] Onset: 12-22-2022 Episodic Nausea and vomiting (5 sources) Nausea; Translations: [Nausea with vomiting, unspecified] Onset: 09-26-2022 Episodic Other aftercare (1 source) Other director long term care (current) drug therapy; Translations: [OTH SENIOR CARE CURRENT DRUG THERAPY] Onset: 12-31-2022 Episodic Other congenital anomalies (4 sources) Other congenital malformations of ribs; Translations: [OTHER CONGENITAL MALFORMATIONS RIBS] Onset: 11-13-2022 Chronic Other nervous system disorders (1 source) Other chronic pain; Translations: [OTHER CHRONIC PAIN] Onset: 09-30-2022 Chronic Other non-traumatic joint disorders (4 sources) Pain in left ankle and joints of left foot; Translations: [PAIN IN LEFT ANKLE] Onset: 2022 Episodic Other nutritional; endocrine; and metabolic disorders (2 sources) Body mass index 40+ - severely obese; Translations: [Morbid (severe) obesity due to excess calories] Chronic Other nutritional; endocrine; and metabolic disorders (1 source) Body mass index (BMI) 50.0-59.9, adult; Translations: [BODY MASS INDEX BMI 50.0-59.9 ADULT] Onset: 04-15-2022 Chronic Other nutritional; endocrine; and metabolic disorders (1 source) Morbid (severe) obesity due to excess calories; Translations: [MORBID SEVERE OBES D/T EXCESS CHRISTY] Onset: 04-15-2022 Chronic Other nutritional; endocrine; and metabolic disorders (1 source) Abnormal weight gain; Translations: [Abnormal weight gain] Episodic Other screening for suspected conditions (not mental disorders or infectious disease) (4 sources) Encounter for screening for malignant neoplasm of cervix; Translations: [ENC SCREENING MALIG NEOPLASM CERV] Onset: 12-17-2022 Episodic Other upper respiratory infections (5 sources) Acute pharyngitis, unspecified; Translations: [Acute upper respiratory infection, unspecified] Onset: 12-30-2022 Episodic Residual codes; unclassified (1 source) Obstructive sleep apnea syndrome; Translations: [Obstructive sleep apnea (adult) (pediatric)] Chronic Unclassified (1 source) LOW BACK PAIN, UNSPECIFIED; Translations: [LOW BACK PAIN, UNSPECIFIED] Onset: 09-30-2022 Past or Other Problems Problem Classification Problem Date Documented Da te Episodic/Chronic Abdominal pain (9 sources) Epigastric pain; Translations: [Unspecified abdominal pain] Onset: 04-11-2022 Episodic Contraceptive and procreative management (1 source) Tubal ligation status; Translations: [TUBAL LIGATION STATUS] Onset: 04-15-2022 Episodic Other connective tissue disease (4 sources) Pain in left foot; Translations: [PAIN IN LEFT FOOT] Onset: 03-21-2022 Episodic Other connective tissue disease (5 sources) Posterior tibial tendinitis, left leg; Translations: [POSTERIOR TIBIAL TENDINITIS LT LEG] Onset: 03-14-2022 Episodic Other gastrointestinal disorders (1 source) Diarrhea, unspecified; Translations: [DIARRHEA UNSPECIFIED] Onset: 09-30-2022 Episodic Other non-traumatic joint disorders (4 sources) Pain in left hip; Translations: [PAIN IN LEFT HIP] Onset: 07-09-2022 Episodic Ovarian cyst (4 sources) Unspecified ovarian cyst, unspecified side; Translations: [UNSPECIFIED OVARIAN CYST UNSP SIDE] Onset: 05-01-2022 Episodic Residual codes; unclassified (1 source) Acquired absence of other specified parts of digestive tract; Translations: [ACQ ABSENCE OTH PART DIGESTV TRACT] Onset: 08-08-2022 Episodic Residual codes; unclassified (1 source) Other specified postprocedural states; Translations: [OTH SPECIFIED POSTPROCEDURAL STATES] Onset: 02-07-2022 Episodic Spondylosis; intervertebral disc disorders; other back problems (1 source) Lumbago with sciatica, left side; Translations: [LUMBAGO WITH SCIATICA LEFT SIDE] Onset: 07-10-2022 Episodic Results Test Name Value Interpretation Reference Range Facility ED Note-Physicianon 08-20-20 ED Note-Physician [id number] 03 [id number]. [id number] [facility] Screenson 08-20-2023 Screens [id number] 0TIFF [facility] Ambulatory Visit Summaryon 1 10-20-2022 Ambulatory Visit Summary ABDIRAHMAN SALCIDO :1995 Visit Date:08/19/2023 Ambulatory Visit Instructions Your Diagnosis Kidney stones Asymptomatic microscopic hematuria Mixed incontinence OAB (overactive bladder) Tests Performed Urnls Dip Stick Auto w/o Microscopy POC [id number] Your Care Team Attending Physician - ADÁN Coello APRN, Carmen Hutchinson Primary Care Physician - Valerie Donato MD This Is Your Medications List APAP/butalbital/caffei ne (APAP/butalbital/caffe ine 325 mg-50 mg-40 mg oral capsule) citalopram (citalopram 20 mg Tab) cyclobenzaprine (cyclobenzaprine 10 mg Tab) hyoscyamine (hyoscyamine 0.125 mg oral Tab) naratriptan (naratriptan 2.5 mg Tab) ondansetron (ondansetron 4 mg Dis Tab) phentermine (phentermine 37.5 mg Tab) Procedures Performed Hysterectomy (04/10/2023), Cystoscopy (11/27/2021), ESWL - Extracorporeal shockwave lithotripsy for renal calculus (01/25/2021), Cholecystectomy (12/22/2017), Birthcontrol implant, Caesarean section, Tubal ligation. Discharge Vitals Heart Rate (Peripheral) 68 Respiratory Rate 16 Blood Pressure 138/71 Height 154 cm Height 61 in Weight 129.5 kg Weight 284.9 lb BMI 54.6 What to do next Scheduled Follow-Up Appointments Friday 2:30 PM EST With: KERA COONEY PA-C Where: [facility] Patient Educationon 08-19-20 23 Patient Education Obstetrics and Gynecology Overactive Bladder, Adult Overactive bladder is a condition in which a person has a sudden and frequent need to urinate. A person might also leak urine if he or she cannot get to the bathroom fast enough (urinary incontinence). Sometimes, symptoms can interfere with work or social activities. What are the causes? Overactive bladder is associated with poor nerve signals between your bladder and your brain. Your bladder may get the signal to empty before it is full. You may also have very sensitive muscles that make your bladder squeeze too soon. This condition may also be caused by other factors, such as: ? Medical conditions: ? Urinary tract infection. ? Infection of nearby tissues. ? Prostate enlargement. ? Bladder stones, inflammation, or tumors. ? Diabetes. ? Muscle or nerve weakness, especially from these conditions: ? A spinal cord injury. ? Stroke. ? Multiple sclerosis. ? Parkinson's disease. ? Other causes: ? Surgery on the uterus or urethra. ? Drinking too much caffeine or alcohol. ? Certain medicines, especially those that eliminate extra fluid in the body (diuretics). ? Constipation. What increases the risk? You may be at greater risk for overactive bladder if you: ? Are an older adult. ? Smoke. ? Are going through menopause. ? Have prostate problems. ? Have a neurological disease, such as stroke, dementia, Parkinson's disease, or multiple sclerosis (MS). ? Eat or drink alcohol, spicy food, caffeine, and other things that irritate the bladder. ? Are overweight or obese. What are the signs or symptoms? Symptoms of this condition include a sudden, strong urge to urinate. Other symptoms include: ? Leaking urine. ? Urinating 8 or more times a day. ? Waking up to urinate 2 or more times overnight. How is this diagnosed? This condition may be diagnosed based on: ? Your symptoms and medical history. ? A physical exam. ? Blood or urine tests to check for possible causes, such as infection. You may also need to see a health care provider who specializes in urinary tract problems. This is called a urologist. How is this treated? Treatment for overactive bladder depends on the cause of your condition and whether it is mild or severe. Treatment may include: ? Bladder training, such as: ? Learning to control the urge to urinate by following a schedule to urinate at regular intervals. ? Doing Kegel exercises to strengthen the pelvic floor muscles that support your bladder. ? Special devices, such as: ? Biofeedback. This uses sensors to help you become aware of your body's signals. ? Electrical stimulation. This uses electrodes placed inside the body (implanted) or outside the body. These electrodes send gentle pulses of electricity to strengthen the nerves or muscles that control the bladder. ? Women may use a plastic device, called a pessary, that fits into the vagina and supports the bladder. ? Medicines, such as: ? Antibiotics to treat bladder infection. ? Antispasmodics to stop the bladder from releasing urine at the wrong time. ? Tricyclic antidepressants to relax bladder muscles. ? Injections of botulinum toxin type A directly into the bladder tissue to relax bladder muscles. ? Surgery, such as: ? A device may be implanted to help manage the nerve signals that control urination. ? An electrode may be implanted to stimulate electrical signals in the bladder. ? A procedure may be done to change the shape of the bladder. This is done only in very severe cases. Follow these instructions at home: Eating and drinking ? Make diet or lifestyle changes recommended by your health care provider. These may include: ? Drinking fluids throughout the day and not only with meals. ? Cutting down on caffeine or alcohol. ? Eating a healthy and balanced diet to prevent constipation. This may include: ? Choosing foods that are high in fiber, such as beans, whole grains, and fresh fruits and vegetables. ? Limiting foods that are high in fat and processed sugars, such as fried and sweet foods. Lifestyle ? Lose weight if needed. ? Do not use any products that contain nicotine or tobacco. These include cigarettes, chewing tobacco, and vaping devices, such as e-cigarettes. If you need help quitting, ask your health care provider. General instructions ? Take olbj-tqa-adlylmc and prescription medicines only as told by your health care provider. ? If you were prescribed an antibiotic medicine, take it as told by your health care provider. Do not stop taking the antibiotic even if you start to feel better. ? Use any implants or pessary as told by your health care provider. ? If needed, wear pads to absorb urine leakage. ? Keep a log to track how much and when you drink, and when you need to urinate. This will help your health care provider monitor yo (more content not included)... Normal [facility] Urology Office/Clinic Noteon 08-19-2023 Urology Office/Clinic Note Chief Complaint 1yr HPI Staff PRW pt 1yr KUB *pt did not get KUB done. Was not aware one was ordered. However did get CT done @ [facility] 08/14/23 DX: Microscopic Hematuria, Hx of Kidney Stones, Nocturia, Stress Incontinence & Frequency Last Stone Procedure 01/25/21 ([facility]) Denies flank pain. Has been lower abdominal discomfort for the past week. Did go to [facility] 08/14/23. frequency during the day, getting up to void 3x/night. Unsure of it is the urge that wakes her up or not. PVR 66ml History of Present Illness I have reviewed and verified the staff HPI to be accurate for this encounter. Review of Systems PHQ Score Initial Depression Screen Score: 0 SCORE Physical Exam Vitals & Measurements HR: 68(Peripheral) RR: 16 BP: 138/71 HT: 61 in HT: 154 cm WT: 129.5 kg WT: 284.9 lb BMI: 54.6 General: Pleasant, morbidly obese female in no acute distress Genitourinary: Flank Pain: none. Bladder: nonpalpable. Assessment/Plan 1. OAB (overactive bladder) (N32.81: Overactive bladder) Poor bladder control, patient states her urinary symptoms are extremely bothersome frequency q 1-2 hr nocturia 4x/night severe urge, can delay less than 10 min gets the sudden urge that is difficult to control at least once daily at least once a day leaking and changing pad PVR 66cc Does admit to consuming at least 2 pops daily, water otherwise Discussed behavioral modifications - avoiding bladder irritants, timed voids, double voiding techniques, avoiding constipation. Educated on proper Kegels, weight loss. Has soft BMs 1-2 x/day Will trial solifenacin 5 mg QD, sent to [facility] discussed SEs, patient to stop medication if severe and notify office F/u 2-3 months to reevaluate OAB symptoms 2. Mixed incontinence (N39.46: Mixed incontinence) KACI is worsening per patient, leaking with coughing/sneezing UUI is starting to be an issue, does dribble on her way to the bathroom and after urinating. both are equally bothersome to patient see #1 3. Kidney stones (N20.0: Calculus of kidney) s/p R ESWL 01/25/2021 Believes she may have had a small stone episode sometime last year when she felt increased pressure while voiding. No other recent stone episodes that she is aware of. Seen at [facility] for RLQ abdominal discomfort 08/14/23 - improved CT at that time negative for any stones or other acute intra-abdominal disease process. Continue to increase fluid intake with water or sugar free lemonade, clear sodas, adding lemon to water. Try to avoid dark gustavo, high caffeine intake. KUB in 1 year to monitor for stones, will need ordered 4. Asymptomatic microscopic hematuria (R31.21: Asymptomatic microscopic hematuria) UA today with small blood, denies any recent infections. Denies gross hematuria S/p cysto done 11/27/21. NEG FISH/Cytology done 11/27/21. [1] Patient to call if she ever sees blood in urine. Orders: solifenacin, 5 mg = 1 tab(s), Oral, Daily, X 90 day(s), # 90 tab(s), Refills(s) 0, Pharmacy: [id number], 154, cm, 08/19/23 15:05:00 EST, Height/Length Dosing, 129.5, kg, 08/19/23 15:05:00 EST, Weight Dosing Follow-up No qualifying data available Patient Education Kidney Stones, Jhyf-kh-Htoh Hematuria, Adult Overactive Bladder, Adult Problem List/Past Medical History Ongoing Asymptomatic microscopic hematuria BMI 45.0-49.9, adult Cervical disc disease Chronic fatigue Depression Flank pain Frequency of urination History of kidney stones History of ovarian cyst Kidney stones Migraine Morbid obesity Nocturia HANH (obstructive sleep apnea) PCOS (polycystic ovarian syndrome) Stress incontinence Historical No qualifying data Procedure/Surgical History Hysterectomy (04/10/2023), Cystoscopy (11/27/2021), ESWL - Extracorporeal shockwave lithotripsy for renal calculus (01/25/2021), Cholecystectomy (12/22/2017), Birthcontrol implant, Caesarean section, Tubal ligation. Medications APAP/butalbital/caffei ne 325 mg-50 mg-40 mg oral capsule, 1 cap(s), Oral, q6hr, PRN citalopram 20 mg Tab cyclobenzaprine 10 mg Tab, 10 mg= 1 tab(s), Oral, TID, PRN hyoscyamine 0.125 mg oral Tab naratriptan 2.5 mg Tab, 2.5 mg= 1 tab(s), Oral, Once ondansetron 4 mg Dis Tab phentermine 37.5 mg Tab solifenacin 5 mg Tab, 5 mg= 1 tab(s), Oral, Daily Allergies Dilaudid (Nausea and vomiting) Thurston (Nausea and vomiting) Social History Alcohol - Denies Alcohol Use, 01/19/2021 Substance Abuse Tobacco Never (less than 100 in lifetime) Tobacco Use:. Never Smokeless Tobacco Use:. Household tobacco concerns: No. Yes, 08/19/2023 Family History Heart disease: Mother. Kidney stone: Mother. Migraine: Mother. Immunizations Vaccine Date Status influenza virus vaccine, inactivated 06/18/2022 Recorded SARS-CoV-2 (COVID-19) [id number] 06/18/2022 Recorded SARSCoV2 mRNA(snkihebqr-fwhr-hv cros) vac 12/03/2021 Recorded SARSCoV2 mRNA(ofhilbqni-ugcr-ip cros) vac 10/25/2021 R (more content not included)... Normal [facility] Comment on above: Result Comment: Elec tronically Signed By: ADÁN Coello APRN, [place] X\.br\Date and Time Signed: 08/19/23 16:30 EST PAP ACOG PANEL 2: 21 to 29on 12-24-2022 . . Normal [facility] Comment on above: Performed By: #### L ACT #### [facility] [address] [address] [address] Tho Hardy Age Gdln ACOG Testing 21-29 [facility] Comment on above: Performed By: #### L ACT #### [facility] [address] [address] [address] Tho Hardy DIAGNOSIS: Comment [facility] Comment on above: Result Comment: NEGA TIVE FOR INTRAEPITHELIAL LESION OR MALIGNANCY. Performed By: #### L ACT #### [facility] [address] [address] [address] Tho Hardy Methodology: Comment [facility] Comment on above: Result Comment: This liquid based ThinPrep(R) pap test was screened with the use of an image guided system. Performed By: #### L ACT #### [facility] [address] [place] [address] Dr. Tho Hardy Note: Comment Normal [facility] Comment on above: Result Comment: The Pap smear is a screening test designed to aid in the detection of premalignant and malignant conditions of the uterine cervix. It is not a diagnostic procedure and should not be used as the sole means of detecting cervical cancer. Both false-positive and false-negative reports do occur. . Performed By: #### L ACT #### [facility] [address] [place] [address] Dr. Tho Hardy Performed by: Comment Normal [facility] Comment on above: Result Comment: Julieta Choudhary, Grades 9 Thru 12 Visiting Teacher (ASCP) Performed By: #### L ACT #### [facility] [address] [place] [address] Dr. Tho Hardy Reflex Criteria: Comment Normal [facility] Comment on above: Result Comment: The HPV DNA reflex criteria were not met with this specimen result therefore, no HPV testing was performed. . Performed By: #### L ACT #### [facility] [address] [place] [address] Dr. Tho Hardy Specimen adequacy: Comment Normal [facility] Comment on above: Result Comment: Sati sfactory for evaluation. Endocervical and/or squamous metaplastic cells (endocervical component) are present. Performed By: #### L ACT #### [facility] [address] [place] [address] Dr. Tho Hardy XR RIBS LT PA Ryan 3 XR RIBS LT PA CH EXAMINATION: XR RIBS LT PA CH HISTORY: Congenital anomaly of rib COMPARISON: 08/04/2022 FINDINGS: LUNGS: No significant pulmonary parenchymal abnormalities. PLEURA: No pneumothorax, effusion, or pleural thickening. MEDIASTINUM: No visible mass or adenopathy. CARDIAC: No cardiomegaly or cardiac silhouette abnormality. RIBS: No acute rib fracture IMPRESSION: Clear lungs No acute rib fracture Electronically authenticated by: AYAD MALCOLM Date: 2022-11-14 07:04 Normal [facility] XR ANKLE LT MIN 3 Von 2022 XR ANKLE LT MIN 3 V EXAM: XR ANKLE LT MD N 3 V HISTORY: Pain of left ankle joint which is chronic. The patient has a history of multiple injuries. COMPARISON: 02/14/2022 TECHNIQUE: 3 views of the left ankle were obtained. FINDINGS: There is no evidence of an acute fracture or dislocation. There is slight narrowing with tiny osteophytes along the lateral aspect of the talar dome. There is slight narrowing of the tibiotalar joint with tiny osteophytes. The mortise is otherwise intact. No osteochondral injury is identified. The remainder the joint spaces are relatively intact. There is mild diffuse soft tissue swelling, more prominent along the medial aspect, with some improvement since the prior study. IMPRESSION: No acute fracture or dislocation. Very mild degenerative changes are present. There has been some interval improvement in the diffuse soft tissue swelling about the ankle since 02/14/2022. Otherwise, there've been no significant interval changes. Electronically authenticated by: NISREEN DUNNE Date: 2022 15:34 Normal [facility] CBC AUTO DIFFon 10-14-2022 BASO # 0.0 103/ul Normal 0.0-0.1 [facility] Comment on above: Performed By: #### C BC #### [facility] [address] [place] [address] Dr. Tho Hardy Basophils/100 WBC (Bld) 0.3 % Normal 0.2-2.0 [facility] Comment on above: Performed By: #### C BC #### [facility] [address] [place] [address] Dr. Tho Hardy EO # 0.1 103/ul Normal 0.0-0.7 [facility] Comment on above: Performed By: #### C BC #### [facility] [address] [place] [address] Dr. Tho Hardy Eosinophils/100 WBC (Bld) 1.5 % Normal 0.9-7.0 [facility] Comment on above: Performed By: #### C BC #### [facility] [address] [place] [address] Dr. Tho Hardy Erythrocyte distribution width (RBC) [Ratio] 12.7 % Normal 11.0-15.0 [facility] Comment on above: Performed By: #### C BC #### [facility] [address] [place] [address] Dr. Tho Hardy Hematocrit (Bld) [Volume fraction] 44.9 % Normal 36.0-48.0 [facility] Comment on above: Performed By: #### C BC #### [facility] [address] [place] [address] Dr. Tho Hardy Hemoglobin (Bld) [Mass/Vol] 14.3 g/dL Normal 12.0-16.0 [facility] Comment on above: Performed By: #### C BC #### [facility] [address] [place] [address] Dr. Tho Hardy IG # 0.02 10e3/ul Normal 0.00-0.03 [facility] Comment on above: Performed By: #### C BC #### [facility] [address] [place] [address] Dr. Tho Hardy IG % 0.3 % Normal 0.0-0.5 [facility] Comment on above: Performed By: #### C BC #### [facility] [address] [place] [address] Dr. Tho Hardy LYMPH # 1.9 103/ul Normal 1.2-3.8 [facility] Comment on above: Performed By: #### C BC #### [facility] [address] [place] [address] Dr. Tho Hardy Lymphocytes/100 WBC (Bld) 27.7 % Normal 20.5-60.0 [facility] Comment on above: Performed By: #### C BC #### [facility] [address] [place] [address] Dr. Tho Hardy MANUAL DIFF REQ NO Normal [facility] Comment on above: Performed By: #### C BC #### [facility] [address] [place] [address] Dr. Tho Hardy MCH (RBC) [Entitic mass] 30.3 pg Normal 26.7-34.0 [facility] Comment on above: Performed By: #### C BC #### [facility] [address] [place] [address] Dr. Tho Hardy MCHC (RBC) [Mass/Vol] 31.8 g/dL Normal 29.9-35.2 [facility] Comment on above: Performed By: #### C BC #### [facility] [address] [place] [address] Dr. Tho Hardy MCV (RBC) [Entitic vol] 95.1 fL Normal 81.0-99.0 [facility] Comment on above: Performed By: #### C BC #### [facility] [address] [place] [address] Dr. Tho Hardy MONO # 0.5 103/ul Normal 0.3-0.8 [facility] Comment on above: Performed By: #### C BC #### [facility] [address] [place] [address] Dr. Tho Hardy Monocytes/100 WBC (Bld) 7.6 % Normal 1.7-12.0 [facility] Comment on above: Performed By: #### C BC #### [facility] [address] [place] [address] Dr. Tho Hardy NEUT # 4.2 103/ul Normal 1.4-6.5 [facility] Comment on above: Performed By: #### C BC #### [facility] [address] [place] [address] Dr. Tho Hardy Neutrophils/100 WBC (Bld) 62.6 % Normal 43.0-75.0 [facility] Comment on above: Performed By: #### C BC #### [facility] [address] [place] [address] Dr. Tho Hardy Platelet mean volume (Bld) [Entitic vol] 10.0 fL Normal 9.5-13.5 [facility] Comment on above: Performed By: #### C BC #### [facility] [address] [place] [address] Dr. Tho Hardy PLT 242 103/ul Normal 150-450 [facility] Comment on above: Performed By: #### C BC #### [facility] [address] [place] [address] Dr. hTo Hardy RBC 4.72 106/ul Normal 4.20-5.40 [facility] Comment on above: Performed By: #### C BC #### [facility] [address] [place] [address] Dr. Tho Hardy WBC 6.7 103/ul Normal 4.0-11.0 [facility] Comment on above: Performed By: #### C BC #### [facility] [address] [place] [address] Dr. Tho Hardy ER URINE PROFILEon 3 Bilirubin Ql (U) Negative Normal NEGATIVE [facility] Comment on above: Performed By: #### L ACT #### [facility] [address] [place] [address] Dr. Tho Hardy Clarity (U) CLEAR Normal CLEAR [facility] Comment on above: Performed By: #### L ACT #### [facility] [address] [place] [address] Dr. Tho Hardy Color (U) YELLOW Normal YELLOW [facility] Comment on above: Performed By: #### L ACT #### [facility] [address] [place] [address] Dr. Tho RIVERA A micrscopic examination will be performed if indicated. Normal [facility] Comment on above: Performed By: #### L ACT #### [facility] [address] [place] [address] Dr. Tho Hardy Glucose Ql (U) Negative Normal NEGATIVE [facility] Comment on above: Performed By: #### L ACT #### [facility] [address] [place] [address] Dr. Tho Hardy Hemoglobin Ql (U) MODERATE Abnormal NEGATIVE [facility] Comment on above: Performed By: #### L ACT #### [facility] [address] [place] [address] Dr. Tho Hardy Ketones Ql (U) Negative Normal NEGATIVE [facility] Comment on above: Performed By: #### L ACT #### [facility] [address] [place] [address] Dr. Tho Hardy LEUKOCYTES Negative Normal NEGATIVE [facility] Comment on above: Performed By: #### L ACT #### [facility] [address] [place] [address] Dr. Tho Hardy Nitrite Ql (U) Negative Normal NEGATIVE [facility] Comment on above: Performed By: #### L ACT #### [facility] [address] [place] [address] Dr. Tho Hardy pH (U) 5.5 [pH] Normal 5-9 [facility] Comment on above: Performed By: #### L ACT #### [facility] [address] [place] [address] Dr. Tho Hardy SPEC GRAVITY >=1.030 Abnormal 1.005-<=1.025 [facility] Comment on above: Performed By: #### L ACT #### [facility] [address] [place] [address] Dr. Tho Hardy UA PROTEIN Negative Normal NEGATIVE/ TRACE [facility] Comment on above: Performed By: #### L ACT #### [facility] [address] [place] [address] Dr. Tho Hardy UR MICRO IND INDICATED Normal [facility] Comment on above: Performed By: #### L ACT #### [facility] [address] [place] [address] Dr. Tho Hardy Urobilinogen Qn (U) 0.2 {Roland'U}/dL Normal 0.2 - 1. 0 [facility] Comment on above: Performed By: #### L ACT #### [facility] [address] [place] [address] Dr. Tho Hardy URon 10-14-2022 , QUAL Negative Normal NEGATIVE [facility] Comment on above: Performed By: #### L ACT #### [facility] [address] [place] [address] Dr. Tho Hardy PROF CHEM 8 (BAS METB)on Anion gap [Moles/Vol] 12.8 mmol/L Normal [facility] Comment on above: Performed By: #### B MP #### [facility] [address] [address] [address] Tho Hardy Calcium [Mass/Vol] 8.7 mg/dL Normal 8.5-10.1 [facility] Comment on above: Performed By: #### B MP #### [facility] [address] [address] [address] Tho Hardy Chloride [Moles/Vol] 104 mmol/L Normal 98-107 [facility] Comment on above: Performed By: #### B MP #### [facility] [address] [address] [address] Tho Hardy CO2 [Moles/Vol] 28.4 mmol/L Normal 21.0-32.0 [facility] Comment on above: Performed By: #### B MP #### [facility] [address] [address] [address] Tho Hardy Creatinine [Mass/Vol] 0.65 mg/dL Normal 0.55-1.02 [facility] Comment on above: Performed By: #### B MP #### [facility] [address] [place] [address] Dr. Tho Hardy EGFR-AF CYMRAES >60 Normal >=60 [facility] Comment on above: Performed By: #### B MP #### [facility] [address] [address] [address] Tho Hardy EGFR-NON AF CYMRAES >60 Normal >=60 [facility] Comment on above: Performed By: #### B MP #### [facility] [address] [address] [address] Tho Hardy Glucose [Mass/Vol] 86 mg/dL Normal 74-106 [facility] Comment on above: Performed By: #### B MP #### [facility] [address] [place] [address] Dr. Tho Hardy Potassium [Moles/Vol] 3.2 mmol/L Critically low 3.5-5.1 [facility] Comment on above: Performed By: #### B MP #### [facility] [address] [address] [address] Tho Hardy Sodium [Moles/Vol] 142 mmol/L Normal 136-145 [facility] Comment on above: Performed By: #### B MP #### [facility] [address] [place] [address] Dr. Tho Hardy Urea nitrogen [Mass/Vol] 11.0 mg/dL Normal 7.0-18.0 [facility] Comment on above: Performed By: #### B MP #### [facility] [address] [place] [address] Dr. Tho Hardy Urea nitrogen/Creatinine [Mass ratio] 16.9 mg/mg Normal [facility] Comment on above: Performed By: #### B MP #### [facility] [address] [place] [address] Dr. Tho Hardy URINE MICROSCOPIC ONLYon BACTERIA TRACE Abnormal NONE SEEN [facility] Comment on above: Performed By: #### L ACT #### [facility] [address] [place] [address] Dr. Tho Hardy Bacteria identified Cx Nom (U) NOT INDICATED Normal [facility] Comment on above: Performed By: #### L ACT #### [facility] [address] [place] [address] Dr. Tho Hardy CAST NONE SEEN Normal NONE SEEN [facility] Comment on above: Performed By: #### L ACT #### [facility] [address] [place] [address] Dr. Tho Hardy Crystals LM Nom (Urine sed) NONE SEEN Normal NONE SEEN [facility] Comment on above: Performed By: #### L ACT #### [facility] [address] [place] [address] Dr. Tho Hardy Epithelial cells LM Ql (Urine sed) FEW Abnormal NONE SEEN /RARE [facility] Comment on above: Performed By: #### L ACT #### [facility] [address] [place] [address] Dr. Tho Hardy MUCOUS NONE SEEN Normal NONE SEEN [facility] Comment on above: Performed By: #### L ACT #### [facility] [address] [place] [address] Dr. Tho Hardy RBC 0-2 Normal 0-2 [facility] Comment on above: Performed By: #### L ACT #### [facility] [address] [place] [address] Dr. Tho Hardy WBC NONE SEEN Normal NONE SEEN [facility] Comment on above: Performed By: #### L ACT #### [facility] [address] [place] [address] Dr. Tho Hardy CBC AUTO DIFFon 09-26-2022 BASO # 0.0 103/ul Normal 0.0-0.1 [facility] Comment on above: Performed By: #### L ACT #### [facility] [address] [place] [address] Dr. Tho Hardy Basophils/100 WBC (Bld) 0.1 % Critically low 0.2-2.0 [facility] Comment on above: Performed By: #### L ACT #### [facility] [address] [place] [address] Dr. Tho Hardy EO # 0.2 103/ul Normal 0.0-0.7 [facility] Comment on above: Performed By: #### L ACT #### [facility] [address] [place] [address] Dr. Tho Hardy Eosinophils/100 WBC (Bld) 2.3 % Normal 0.9-7.0 [facility] Comment on above: Performed By: #### L ACT #### [facility] [address] [place] [address] Dr. Tho Hardy Erythrocyte distribution width (RBC) [Ratio] 12.7 % Normal 11.0-15.0 [facility] Comment on above: Performed By: #### L ACT #### [facility] [address] [place] [address] Dr. Tho Hardy Hematocrit (Bld) [Volume fraction] 43.4 % Normal 36.0-48.0 [facility] Comment on above: Performed By: #### L ACT #### [facility] [address] [address] [address] Tho Hardy Hemoglobin (Bld) [Mass/Vol] 14.6 g/dL Normal 12.0-16.0 [facility] Comment on above: Performed By: #### L ACT #### [facility] [address] [address] [address] Tho Hardy IG # 0.02 10e3/ul Normal 0.00-0.03 [facility] Comment on above: Performed By: #### L ACT #### [facility] [address] [place] [address] Dr. Tho Hardy IG % 0.2 % Normal 0.0-0.5 [facility] Comment on above: Performed By: #### L ACT #### [facility] [address] [place] [address] Dr. Tho Hardy LYMPH # 1.8 103/ul Normal 1.2-3.8 [facility] Comment on above: Performed By: #### L ACT #### [facility] [address] [place] [address] Dr. Tho Hardy Lymphocytes/100 WBC (Bld) 20.5 % Normal 20.5-60.0 [facility] Comment on above: Performed By: #### L ACT #### [facility] [address] [place] [address] Dr. Tho Hardy MANUAL DIFF REQ NO Normal [facility] Comment on above: Performed By: #### L ACT #### [facility] [address] [place] [address] Dr. Tho Hardy MCH (RBC) [Entitic mass] 30.4 pg Normal 26.7-34.0 [facility] Comment on above: Performed By: #### L ACT #### [facility] [address] [place] [address] Dr. Tho Hardy MCHC (RBC) [Mass/Vol] 33.6 g/dL Normal 29.9-35.2 [facility] Comment on above: Performed By: #### L ACT #### [facility] [address] [place] [address] Dr. Tho Hardy MCV (RBC) [Entitic vol] 90.4 fL Normal 81.0-99.0 [facility] Comment on above: Performed By: #### L ACT #### [facility] [address] [place] [address] Dr. Tho Hardy MONO # 0.5 103/ul Normal 0.3-0.8 [facility] Comment on above: Performed By: #### L ACT #### [facility] [address] [place] [address] Dr. Tho Hardy Monocytes/100 WBC (Bld) 5.5 % Normal 1.7-12.0 [facility] Comment on above: Performed By: #### L ACT #### [facility] [address] [place] [address] Dr. Tho Hardy NEUT # 6.2 103/ul Normal 1.4-6.5 [facility] Comment on above: Performed By: #### L ACT #### [facility] [address] [place] [address] Dr. Tho Hardy Neutrophils/100 WBC (Bld) 71.4 % Normal 43.0-75.0 [facility] Comment on above: Performed By: #### L ACT #### [facility] [address] [place] [address] Dr. Tho Hardy Platelet mean volume (Bld) [Entitic vol] 9.5 fL Normal 9.5-13.5 [facility] Comment on above: Performed By: #### L ACT #### [facility] [address] [place] [address] Dr. Tho Hardy PLT 234 103/ul Normal 150-450 [facility] Comment on above: Performed By: #### L ACT #### [facility] [address] [place] [address] Dr. Tho Hardy RBC 4.80 106/ul Normal 4.20-5.40 [facility] Comment on above: Performed By: #### L ACT #### [facility] [address] [place] [address] Dr. Tho Hardy WBC 8.7 103/ul Normal 4.0-11.0 [facility] Comment on above: Performed By: #### L ACT #### [facility] [address] [address] [address] Tho Hardy ER URINE PROFILEon 3 Bilirubin Ql (U) Negative Normal NEGATIVE [facility] Comment on above: Performed By: #### P REGU, ERUR, UMICRO #### [facility] [address] [address] [address] Tho Hardy Clarity (U) CLEAR Normal CLEAR [facility] Comment on above: Performed By: #### P REGU, ERUR, UMICRO #### [facility] [address] [place] [address] Dr. Tho Hardy Color (U) YELLOW Normal YELLOW [facility] Comment on above: Performed By: #### P REGU, ERUR, UMICRO #### [facility] [address] [place] [address] Dr. Tho RIVERA A micrscopic examination will be performed if indicated. Normal [facility] Comment on above: Performed By: #### P REGU, ERUR, UMICRO #### [facility] [address] [place] [address] Dr. Tho Hardy Glucose Ql (U) Negative Normal NEGATIVE [facility] Comment on above: Performed By: #### P REGU, ERUR, UMICRO #### [facility] [address] [address] [address] Tho Hardy Hemoglobin Ql (U) SMALL Abnormal NEGATIVE [facility] Comment on above: Performed By: #### P REGU, ERUR, UMICRO #### [facility] [address] [address] [address] Tho Hardy Ketones Ql (U) Negative Normal NEGATIVE [facility] Comment on above: Performed By: #### P REGU, ERUR, UMICRO #### [facility] [address] [place] [address] Dr. Tho Hardy LEUKOCYTES Negative Normal NEGATIVE [facility] Comment on above: Performed By: #### P REGU, ERUR, UMICRO #### [facility] [address] [address] [address] Tho Hardy Nitrite Ql (U) Negative Normal NEGATIVE [facility] Comment on above: Performed By: #### P REGU, ERUR, UMICRO #### [facility] [address] [address] [address] Tho Hardy pH (U) 5.5 [pH] Normal 5-9 [facility] Comment on above: Performed By: #### P REGU, ERUR, UMICRO #### [facility] [address] [address] [address] Tho Hardy SPEC GRAVITY >=1.030 Abnormal 1.005-<=1.025 [facility] Comment on above: Performed By: #### P REGU, ERUR, UMICRO #### [facility] [address] [address] [address] Tho Hardy UA PROTEIN TRACE Normal NEGATIVE/ TRACE [facility] Comment on above: Performed By: #### P REGU, ERUR, UMICRO #### [facility] [address] [address] [address] Tho Hardy UR MICRO IND INDICATED Normal [facility] Comment on above: Performed By: #### P REGU, ERUR, UMICRO #### [facility] [address] [address] [address] Tho Hardy Urobilinogen Qn (U) 0.2 {Roland'U}/dL Normal 0.2 - 1. 0 [facility] Comment on above: Performed By: #### P REGU, ERUR, UMICRO #### [facility] [address] [place] [address] Dr. Tho Hardy GI PANEL (PCR)on 09-26-2022 Adenovirus F 40/41 Not detected Normal NOT DETECTED [facility] Comment on above: Performed By: #### G IPANEL #### [facility] [address] [place] [address] Dr. Tho Hardy Astrovirus Not detected Normal NOT DETECTED [facility] Comment on above: Performed By: #### G IPANEL #### [facility] [address] [place] [address] Dr. Tho Hardy C. Diff toxin A/B Not detected Normal NOT DETECTED [facility] Comment on above: Performed By: #### G IPANEL #### [facility] [address] [place] [address] Dr. Tho Hardy Campylobacter Not detected Normal NOT DETECTED [facility] Comment on above: Performed By: #### G IPANEL #### [facility] [address] [place] [address] Dr. Tho Hardy Cryptosporidium Not detected Normal NOT DETECTED [facility] Comment on above: Performed By: #### G IPANEL #### [facility] [address] [place] [address] Dr. Tho Hardy Cyclos. Cayetanensis Not detected Normal NOT DETECTED [facility] Comment on above: Performed By: #### G IPANEL #### [facility] [address] [place] [address] Dr. Tho Hardy E. Coli O157 Not Applicable Normal Not Applicable [facility] Comment on above: Performed By: #### G IPANEL #### [facility] [address] [place] [address] Dr. Tho Hardy E. histolytica Not detected Normal NOT DETECTED [facility] Comment on above: Performed By: #### G IPANEL #### [facility] [address] [place] [address] Dr. Tho Hardy EAEC Not detected Normal NOT DETECTED [facility] Comment on above: Performed By: #### G IPANEL #### [facility] [address] [place] [address] Dr. Tho Hardy EIEC Not detected Normal NOT DETECTED [facility] Comment on above: Performed By: #### G IPANEL #### [facility] [address] [place] [address] Dr. Tho Hardy EPEC Not detected Normal NOT DETECTED [facility] Comment on above: Performed By: #### G IPANEL #### [facility] [address] [address] [address] Tho Hardy ETEC Not detected Normal NOT DETECTED [facility] Comment on above: Performed By: #### G IPANEL #### [facility] [address] [address] [address] Tho Scott Lamblia Not detected Normal NOT DETECTED [facility] Comment on above: Performed By: #### G IPANEL #### [facility] [address] [address] [address] Tho ALBRIGHT CONTROLS PASSED Normal [facility] Comment on above: Performed By: #### G IPANEL #### [facility] [address] [address] [address] Tho CESPEDES HEADER GI PANEL BACTERIA Normal [facility] Comment on above: Performed By: #### G IPANEL #### [facility] [address] [place] [address] Dr. Tho MCCONNELL ECOLI GI PANEL DIARRHEAGEN IC E.COLI / SHIGELLA Normal [facility] Comment on above: Performed By: #### G IPANEL #### [facility] [address] [place] [address] Dr. Tho MCCONNELL INFO SEE BELOW [facility] Comment on above: Result Comment: EAEC - Enteroaggregative E. Coli EPEC- Enteropathogenic E. Coli ETEC- Enterotoxigenic E. Coli lt/st STEC- Shigella-like toxin-producing E. Coli stx1/stx2 EIEC- Shigella/Enteroinvasive E. Coli Performed By: #### G IPANEL #### [facility] [address] [place] [address] Dr. Tho MCCONNELL PARASITES GI PANEL PARASITES Normal [facility] Comment on above: Performed By: #### G IPANEL #### [facility] [address] [address] [address] Tho MCCONNELL VIRUS GI PANEL VIRUSES Normal [facility] Comment on above: Performed By: #### G IPANEL #### [facility] [address] [place] [address] Dr. Tho Hardy Norovirus GI/GII Not detected Normal NOT DETECTED [facility] Comment on above: Performed By: #### G IPANEL #### [facility] [address] [place] [address] Dr. Tho Hardy P. Shigelloides Not detected Normal NOT DETECTED [facility] Comment on above: Performed By: #### G IPANEL #### [facility] [address] [place] [address] Dr. Tho Hardy Rotavirus A Not detected Normal NOT DETECTED [facility] Comment on above: Performed By: #### G IPANEL #### [facility] [address] [place] [address] Dr. Tho Hardy Salmonella Not detected Normal NOT DETECTED [facility] Comment on above: Performed By: #### G IPANEL #### [facility] [address] [place] [address] Dr. Tho Hardy Sapovirus Not detected Normal NOT DETECTED [facility] Comment on above: Performed By: #### G IPANEL #### [facility] [address] [place] [address] Dr. Tho Hardy STEC Not detected Normal NOT DETECTED [facility] Comment on above: Performed By: #### G IPANEL #### [facility] [address] [place] [address] Dr. Tho Hardy Vibrio Not detected Normal NOT DETECTED [facility] Comment on above: Performed By: #### G IPANEL #### [facility] [address] [place] [address] Dr. Tho Hardy Vibrio Cholera Not detected Normal NOT DETECTED [facility] Comment on above: Performed By: #### G IPANEL #### [facility] [address] [place] [address] Dr. Tho Hardy Y. Enterocolitica Not detected Normal NOT DETECTED [facility] Comment on above: Performed By: #### G IPANEL #### [facility] [address] [place] [address] Dr. Tho Hardy URon 09-26-2022 , QUAL Negative Normal NEGATIVE [facility] Comment on above: Performed By: #### P REGU, ERUR, UMICRO #### [facility] [address] [address] [address] Tho Hardy PROF CHEM 8 (BAS METB)on Anion gap [Moles/Vol] 15.6 mmol/L Normal [facility] Comment on above: Performed By: #### B MP #### [facility] [address] [address] [address] Tho Hardy Calcium [Mass/Vol] 9.0 mg/dL Normal 8.5-10.1 [facility] Comment on above: Performed By: #### B MP #### [facility] [address] [place] [address] Dr. Tho Hardy Chloride [Moles/Vol] 104 mmol/L Normal 98-107 [facility] Comment on above: Performed By: #### B MP #### [facility] [address] [address] [address] Tho Hardy CO2 [Moles/Vol] 24.0 mmol/L Normal 21.0-32.0 [facility] Comment on above: Performed By: #### B MP #### [facility] [address] [place] [address] Dr. Tho Hardy Creatinine [Mass/Vol] 0.73 mg/dL Normal 0.55-1.02 [facility] Comment on above: Performed By: #### B MP #### [facility] [address] [address] [address] Tho Hardy EGFR-AF CYMRAES >60 Normal >=60 [facility] Comment on above: Performed By: #### B MP #### [facility] [address] [address] [address] Tho Hardy EGFR-NON AF CYMRAES >60 Normal >=60 [facility] Comment on above: Performed By: #### B MP #### [facility] [address] [place] [address] Dr. Tho Hardy Glucose [Mass/Vol] 85 mg/dL Normal 74-106 [facility] Comment on above: Performed By: #### B MP #### [facility] [address] [address] [address] Tho Hardy Potassium [Moles/Vol] 3.6 mmol/L Normal 3.5-5.1 [facility] Comment on above: Performed By: #### B MP #### [facility] [address] [address] [address] Tho Hardy Sodium [Moles/Vol] 140 mmol/L Normal 136-145 [facility] Comment on above: Performed By: #### B MP #### [facility] [address] [address] [address] Tho Hardy Urea nitrogen [Mass/Vol] 12.0 mg/dL Normal 7.0-18.0 [facility] Comment on above: Performed By: #### B MP #### [facility] [address] [address] [address] Tho Hardy Urea nitrogen/Creatinine [Mass ratio] 16.4 mg/mg Normal [facility] Comment on above: Performed By: #### B MP #### [facility] [address] [address] [address] Tho Hardy URINE MICROSCOPIC ONLYon BACTERIA TRACE Abnormal NONE SEEN [facility] Comment on above: Performed By: #### P REGU, ERUR, UMICRO #### [facility] [address] [address] [address] Tho Hardy Bacteria identified Cx Nom (U) NOT INDICATED Normal [facility] Comment on above: Performed By: #### P REGU, ERUR, UMICRO #### [facility] [address] [address] [address] Tho Hardy CAST NONE SEEN Normal NONE SEEN [facility] Comment on above: Performed By: #### P REGU, ERUR, UMICRO #### [facility] [address] [address] [address] Tho Hardy Crystals LM Nom (Urine sed) NONE SEEN Normal NONE SEEN [facility] Comment on above: Performed By: #### P REGU, ERUR, UMICRO #### [facility] [address] [address] [address] Tho Hardy Epithelial cells LM Ql (Urine sed) MANY Abnormal NONE SEEN /RARE [facility] Comment on above: Performed By: #### P REGU, ERUR, UMICRO #### [facility] [address] [address] [address] Tho Hadry MUCOUS NONE SEEN Normal NONE SEEN [facility] Comment on above: Performed By: #### P REGU, ERUR, UMICRO #### [facility] [address] [address] [address] Tho Hardy RBC 2-5 Abnormal 0-2 [facility] Comment on above: Performed By: #### P REGU, ERUR, UMICRO #### [facility] [address] [place] [address] Dr. Tho Hardy WBC NONE SEEN Normal NONE SEEN [facility] Comment on above: Performed By: #### P REGU, ERUR, UMICRO #### [facility] [address] [address] [address] Tho Hardy AMYLASEon 08-04-2022 Amylase [Catalytic activity/Vol] 27 U/L Normal 25-115 [facility] Comment on above: Performed By: #### P REGU, ERUR, UMICRO #### [facility] [address] [address] [address] Tho Hardy CARDIAC JEAN 3-6on 2 CK [Catalytic activity/Vol] 53 U/L Normal 26-192 [facility] Comment on above: Performed By: #### C MREP #### [facility] [address] [address] [address] Tho Hardy CK.MB [Mass/Vol] 0.79 ng/mL Normal <=3.60 [facility] Comment on above: Performed By: #### C MREP #### [facility] [address] [place] [address] Dr. Tho Hardy HSTROP 4.6 pg/mL Normal 4.0-51.3 [facility] Comment on above: Result Comment: CUT- OFF POINTS HAVE BEEN ESTABLISHED BASED ON THE FOURTH UNIVERSAL DEFINITIONS OF MYOCARDIAL INFARCTION. THE UPPER REFERENCE LIMIT (URL) OF TROPONIN, DEFINED THE 99TH PERCENTILE OF cTnI DISTRIBUTION IN A REFERENCE POPULATION, HAS BEEN CONFIRMED THE DECISION THRESHOLD FOR MD DIAGNOSIS. Performed By: #### C MREP #### [facility] [address] [address] [address] Tho Hardy CARDIAC JEAN ADMITon 022 CK [Catalytic activity/Vol] 68 U/L Normal 26-192 [facility] Comment on above: Performed By: #### P REGU, ERUR, UMICRO #### [facility] [address] [address] [address] Tho Hardy CK.MB [Mass/Vol] 1.11 ng/mL Normal <=3.60 [facility] Comment on above: Performed By: #### P REGU, ERUR, UMICRO #### [facility] [address] [place] [address] Dr. Tho Hardy HSTROP 4.3 pg/mL Normal 4.0-51.3 [facility] Comment on above: Result Comment: CUT- OFF POINTS HAVE BEEN ESTABLISHED BASED ON THE FOURTH UNIVERSAL DEFINITIONS OF MYOCARDIAL INFARCTION. THE UPPER REFERENCE LIMIT (URL) OF TROPONIN, DEFINED THE 99TH PERCENTILE OF cTnI DISTRIBUTION IN A REFERENCE POPULATION, HAS BEEN CONFIRMED THE DECISION THRESHOLD FOR MD DIAGNOSIS. Performed By: #### P REGU, ERUR, UMICRO #### [facility] [address] [place] [address] Dr. Tho Hardy KINDRA 29 ng/mL Normal 9-82 [facility] Comment on above: Performed By: #### P REGU, ERUR, UMICRO #### [facility] [address] [address] [address] Tho Hardy CBC AUTO DIFFon 08-04-2022 BASO # 0.0 103/ul Normal 0.0-0.1 [facility] Comment on above: Performed By: #### P REGU, ERUR, UMICRO #### [facility] [address] [place] [address] Dr. Tho Hardy Basophils/100 WBC (Bld) 0.4 % Normal 0.2-2.0 [facility] Comment on above: Performed By: #### P REGU, ERUR, UMICRO #### [facility] [address] [place] [address] Dr. Tho Hardy EO # 0.2 103/ul Normal 0.0-0.7 [facility] Comment on above: Performed By: #### P REGU, ERUR, UMICRO #### [facility] [address] [place] [address] Dr. Tho Hardy Eosinophils/100 WBC (Bld) 1.7 % Normal 0.9-7.0 [facility] Comment on above: Performed By: #### P REGU, ERUR, UMICRO #### [facility] [address] [place] [address] Dr. Tho Hardy Erythrocyte distribution width (RBC) [Ratio] 12.9 % Normal 11.0-15.0 [facility] Comment on above: Performed By: #### P REGU, ERUR, UMICRO #### [facility] [address] [place] [address] Dr. Tho Hardy Hematocrit (Bld) [Volume fraction] 43.2 % Normal 36.0-48.0 [facility] Comment on above: Performed By: #### P REGU, ERUR, UMICRO #### [facility] [address] [place] [address] Dr. Tho Hardy Hemoglobin (Bld) [Mass/Vol] 14.4 g/dL Normal 12.0-16.0 [facility] Comment on above: Performed By: #### P REGU, ERUR, UMICRO #### [facility] [address] [place] [address] Dr. Tho Hardy IG # 0.05 10e3/ul Critically high 0.00-0.03 [facility] Comment on above: Performed By: #### P REGU, ERUR, UMICRO #### [facility] [address] [place] [address] Dr. Tho Hardy IG % 0.4 % Normal 0.0-0.5 [facility] Comment on above: Performed By: #### P REGU, ERUR, UMICRO #### [facility] [address] [place] [address] Dr. Tho Hadry LYMPH # 2.4 103/ul Normal 1.2-3.8 [facility] Comment on above: Performed By: #### P REGU, ERUR, UMICRO #### [facility] [address] [place] [address] Dr. Tho Hardy Lymphocytes/100 WBC (Bld) 21.3 % Normal 20.5-60.0 [facility] Comment on above: Performed By: #### P REGU, ERUR, UMICRO #### [facility] [address] [place] [address] Dr. Tho Hardy MANUAL DIFF REQ NO Normal [facility] Comment on above: Performed By: #### P REGU, ERUR, UMICRO #### [facility] [address] [place] [address] Dr. Tho Hardy MCH (RBC) [Entitic mass] 29.9 pg Normal 26.7-34.0 [facility] Comment on above: Performed By: #### P REGU, ERUR, UMICRO #### [facility] [address] [place] [address] Dr. Tho Hardy MCHC (RBC) [Mass/Vol] 33.3 g/dL Normal 29.9-35.2 [facility] Comment on above: Performed By: #### P REGU, ERUR, UMICRO #### [facility] [address] [place] [address] Dr. Tho Hardy MCV (RBC) [Entitic vol] 89.6 fL Normal 81.0-99.0 [facility] Comment on above: Performed By: #### P REGU, ERUR, UMICRO #### [facility] [address] [place] [address] Dr. Tho Hardy MONO # 0.6 103/ul Normal 0.3-0.8 [facility] Comment on above: Performed By: #### P REGU, ERUR, UMICRO #### [facility] [address] [address] [address] Tho Hardy Monocytes/100 WBC (Bld) 5.5 % Normal 1.7-12.0 [facility] Comment on above: Performed By: #### P REGU, ERUR, UMICRO #### [facility] [address] [place] [address] Dr. Tho Hardy NEUT # 8.0 103/ul Critically high 1.4-6.5 [facility] Comment on above: Performed By: #### P REGU, ERUR, UMICRO #### [facility] [address] [place] [address] Dr. Tho Hardy Neutrophils/100 WBC (Bld) 70.7 % Normal 43.0-75.0 [facility] Comment on above: Performed By: #### P REGU, ERUR, UMICRO #### [facility] [address] [place] [address] Dr. Tho Hardy Platelet mean volume (Bld) [Entitic vol] 10.7 fL Normal 9.5-13.5 [facility] Comment on above: Performed By: #### P REGU, ERUR, UMICRO #### [facility] [address] [place] [address] Dr. Tho Hardy PLT 220 103/ul Normal 150-450 [facility] Comment on above: Performed By: #### P REGU, ERUR, UMICRO #### [facility] [address] [place] [address] Dr. Tho Hardy RBC 4.82 106/ul Normal 4.20-5.40 [facility] Comment on above: Performed By: #### P REGU, ERUR, UMICRO #### [facility] [address] [place] [address] Dr. Tho Hardy WBC 11.3 103/ul Critically high 4.0-11.0 [facility] Comment on above: Performed By: #### P REGU, ERUR, UMICRO #### [facility] [address] [address] [address] ABD/PELV W CONon 08-04-20 CT ABD/PELV W CON EXAMINATION: CT ABD/PELV W CON HISTORY:Epigastric Pain , shortness of breath COMPARISON: CT abdomen pelvis 04/11/2022 TECHNIQUE: Multiple axial views CT abdomen pelvis after administration of 100 mL Omnipaque 300 IV contrast. Coronal and sagittal reformats. Dose reduction techniques were achieved by using automated exposure control and/or adjustment of mA and/or kV according to patient size and/or use of iterative reconstruction technique. FINDINGS: Visualized lung bases and cardiac apex are unremarkable. Diffuse hepatic steatosis and hepatomegaly. Status post cholecystectomy. Pancreas, spleen, adrenal glands, kidneys, urinary bladder, uterus and other pelvic structures are unremarkable. Appendix is unremarkable. Moderate amount of stool within the right large bowel. No evidence for small bowel obstruction, large ascites, or free air. Stomach is underdistended. No perigastric or peripancreatic inflammatory stranding/free fluid. Small supraumbilical fat-containing ventral abdominal wall hernia without bowel protrusion. No acute bony abnormality. IMPRESSION: No CT evidence for acute intra-abdominal inflammatory stranding, free fluid, or extraluminal free air. Diffuse hepatic steatosis and hepatomegaly. Electronically authenticated by: ISH HECTOR Date: 2022-08-04 05:28 Normal [facility] LACTATE/LACTIC ACIDon 2021 Lactate [Moles/Vol] 1.0 mmol/L Normal 0.4-1.9 [facility] Comment on above: Performed By: #### L ACT #### [facility] [address] [place] [address] Dr. Tho Hardy Lactate [Moles/Vol] 1.2 mmol/L Normal 0.4-1.9 [facility] Comment on above: Performed By: #### L ACT #### [facility] [address] [place] [address] Dr. Tho Hardy LIPASEon 08-04-2022 Lipase [Catalytic activity/Vol] 72.0 U/L Critically low 73.0-393.0 [facility] Comment on above: Performed By: #### P RICHARDSON MCNEIL, UMICRO #### [facility] [address] [place] [address] Dr. Tho Hardy PROF 14(COMP METB)on 022 Albumin [Mass/Vol] 3.7 g/dL Normal 3.4-5.0 [facility] Comment on above: Performed By: #### P REGU, ERUR, UMICRO #### [facility] [address] [place] [address] Dr. Tho Hardy Albumin/Globulin [Mass ratio] 0.9 {ratio} Normal [facility] Comment on above: Performed By: #### P REGU, ERUR, UMICRO #### [facility] [address] [place] [address] Dr. Tho Hardy ALP [Catalytic activity/Vol] 83 U/L Normal 46-116 [facility] Comment on above: Performed By: #### P REGU ERUR, UMICRO #### [facility] [address] [place] [address] Dr. Tho Hardy ALT [Catalytic activity/Vol] 36 U/L Normal 14-59 [facility] Comment on above: Performed By: #### P REGUKRISTIANR, UMICRO #### [facility] [address] [place] [address] Dr. Tho Hardy Anion gap [Moles/Vol] 9.7 mmol/L Normal [facility] Comment on above: Performed By: #### P REGU, ERUR, UMICRO #### [facility] [address] [place] [address] Dr. Tho Hardy AST [Catalytic activity/Vol] 19 U/L Normal 15-37 [facility] Comment on above: Performed By: #### P REGU ERUR, UMICRO #### [facility] [address] [place] [address] Dr. Tho Hardy Bilirubin [Mass/Vol] 0.3 mg/dL Normal 0.2-1.0 [facility] Comment on above: Performed By: #### P REGU, ERUR, UMICRO #### [facility] [address] [address] [address] Tho Hardy Calcium [Mass/Vol] 8.9 mg/dL Normal 8.5-10.1 [facility] Comment on above: Performed By: #### P REGU, ERUR, UMICRO #### [facility] [address] [address] [address] Tho Hardy Chloride [Moles/Vol] 103 mmol/L Normal 98-107 [facility] Comment on above: Performed By: #### P REGU, ERUR, UMICRO #### [facility] [address] [address] [address] Tho Hardy CO2 [Moles/Vol] 27.8 mmol/L Normal 21.0-32.0 [facility] Comment on above: Performed By: #### P REGU, ERUR, UMICRO #### [facility] [address] [place] [address] Dr. Tho Hardy Creatinine [Mass/Vol] 0.62 mg/dL Normal 0.55-1.02 [facility] Comment on above: Performed By: #### P REGU, ERUR, UMICRO #### [facility] [address] [place] [address] Dr. Tho Hardy EGFR-AF CYMRAES >60 Normal >=60 [facility] Comment on above: Performed By: #### P REGU, ERUR, UMICRO #### [facility] [address] [address] [address] Tho Hardy EGFR-NON AF CYMRAES >60 Normal >=60 [facility] Comment on above: Performed By: #### P REGU, ERUR, UMICRO #### [facility] [address] [address] [address] Tho Hardy Globulin (S) [Mass/Vol] 3.9 g/dL Normal [facility] Comment on above: Performed By: #### P REGU, ERUR, UMICRO #### [facility] [address] [address] [address] Tho Hardy Glucose [Mass/Vol] 98 mg/dL Normal 74-106 [facility] Comment on above: Performed By: #### P REGRICHARDSON Kramer UMICRO #### [facility] [address] [place] [address] Dr. Tho Hardy Potassium [Moles/Vol] 3.5 mmol/L Normal 3.5-5.1 [facility] Comment on above: Performed By: #### P REGRICHARDSON Kramer UMICRO #### [facility] [address] [address] [address] Tho Hardy Protein [Mass/Vol] 7.6 g/dL Normal 6.4-8.2 [facility] Comment on above: Performed By: #### RICHARDSON GALE UMICRO #### [facility] [address] [place] [address] Dr. Tho Hardy Sodium [Moles/Vol] 137 mmol/L Normal 136-145 [facility] Comment on above: Performed By: #### Gail REGRICHARDSON Kramer UMICRO #### [facility] [address] [place] [address] Dr. Tho Hardy Urea nitrogen [Mass/Vol] 18.0 mg/dL Normal 7.0-18.0 [facility] Comment on above: Performed By: #### P REGRICHARDSON Kramer UMICRO #### [facility] [address] [place] [address] Dr. Tho Hardy Urea nitrogen/Creatinine [Mass ratio] 29.0 mg/mg Normal [facility] Comment on above: Performed By: #### P REGUKRISTIANR UMICRO #### [facility] [address] [place] [address] Dr. Tho Hardy XR CHEST 1 Von 08-04-2022 XR CHEST 1 V XR CHEST 1 V 08/04/2022 12:40 AM EST CLINICAL INDICATION: Chest pain COMPARISON: 03/28/2021 TECHNIQUE: Portable semiupright AP view of the chest. FINDINGS: There are no tubes or implants noted. The cardiomediastinal silhouette and pulmonary vasculature are within normal limits. The lungs are clear. No pneumothorax or pleural effusion. Osseous structures and soft tissues are within normal limits. IMPRESSION: No acute cardiopulmonary abnormality. Electronically authenticated by: JOLENE BURDICK Date: 2022-08-04 02:02 Normal [facility] D-DIMERon 07-09-2022 D-DIMER 0.23 mg/L FEU Normal <=0.59 [facility] Comment on above: Performed By: #### P RICHARDSON MCNEIL UMICRO #### [facility] [address] [place], [place] [address] Dr. Tho Hardy D-DIMER COMMENTS SEE BELOW Normal [facility] Comment on above: Result Comment: Incr eases in D-Dimer concentration observed with thromboembolic events can be variable due to localization, size, and age of the thrombus. Therefore, a thromboembolic event cannot be diagnosed with certainty on the basis of the reference range. D-Dimers may also be elevated for a variety of disorders including: advanced age, , coronary disease, cancer, liver disease, infection, inflammation, hematoma, DIC, trauma, post-surgery, diabetes, thrombolytic or anticoagulant therapy, stress, and generalized hospitalization. Performed By: #### P RICHARDSON MCNEIL UMANISARO #### [facility] [address], [place] [address] Dr. Tho Hardy XR HIP LT 2 3V W PELVISon XR HIP LT 2 3V W PELVIS EXAM: XR HIP LT 2 3V W PELVIS HISTORY: Pain of left hip joint COMPARISON: None. TECHNIQUE AND FINDINGS: Frontal view pelvis and 2 views of the left hip. No acute fracture lucency or dislocation. Unremarkable soft tissues without radiopaque foreign body seen. Surgical clip over the right pelvis. IMPRESSION: No evidence of pelvic or left hip fracture. Electronically authenticated by: JOSIE KING Date: 2022-07-08 23:54 Normal [facility] US PELVIS TRANSVAGon 022 US PELVIS TRANSVAG EXAM: Pelvic ultrasound HISTORY: Cyst of the ovary COMPARISON: 2021 TECHNIQUE: Transvaginal scanning was performed FINDINGS: An of the pelvis demonstrates uterus to be anteverted and measures 9.3 x 3.8 x 5.7 cm. Endometrial complex measures 5 mm. Right ovary measures 2.1 x 1.7 x 1.2 cm. Color-flow is noted. No masses are noted. Left ovary measures 2.5 x 2.7 x 2.1 cm. Color-flow is noted. Follicles are noted. No fluid was noted in the pelvis. IMPRESSION: Normal ultrasound of the pelvis. Electronically authenticated by: AYAD BIGGS Date: 2022-05-01 10:[address] 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 NO Have you had unintentional weight loss of 15 lbs/7 Kg in the last 3-6 months? NO Bowels: regular Wound: none Temperature: No Drains: No Kanchan Palencia MD 04/26/2022 2:32 PM Signed Consultation requested by Dr. Carlito Walton for an opinion regarding incisional hernia. My final recommendations will be communicated back to the requesting physician by way of shared medical record or letter via US mail Pt w remote hx of lap david. Was seen in ED at [facility] for abd pain in epigastric area. She had no obstructive symptoms and pain was focal in the area. She had CT scan revealing incisional hernia above the umbilicus, presumably at site of port site from the lap david. No mention of bowel incarceration or involv in the hernia. Of note she is at BMI 60 but has recently started on weight loss No past medical history on file. PSH: as above Current Outpatient Medications on File Prior to Visit Medication Sig FLUoxetine (PROZAC) 10 mg capsule Take 10 mg by mouth once daily. Phentermine HCl 37.5 mg capsule Take 37.5 mg by mouth once daily. naratriptan (AMERGE) 2.5 mg tablet Take 2.5 mg by mouth once daily. acetaminophen 325 mg-caffeine 40 mg-butalbital 50 mg (FIORICET) per capsule as needed. acetaminophen-codeine (TYLENOL-COD #3) 300-30 mg per tablet Take 1 tablet by mouth every 6 hours as needed. tiZANidine (ZANAFLEX) 4 mg tablet Take 8 mg by mouth as needed. No current facility-administered medications on file prior to visit. Social History Tobacco Use Smoking status: Never Smokeless tobacco: Never No family history on file. No fever No night sweats No malaise No rash No jaundice No weight loss No N/V/D/C epigastric abd pain Blood pressure 140/84, pulse 104, height 152.4 cm (5'), weight (!) 138.3 kg (305 lb), last menstrual period 04/19/2022, SpO2 98 %. WAD Breathing comfortably on RA RRR Abd is obese, soft, NT and ND I was not able to palpate hernia on exam given body habitus No jaundice CT scan report avail but not images A/p: incisional hernia Aspects of hernia disease discussed with patient. We discussed aspects of hernia incarceration and risk of strangulation. The patient voiced understanding and will seek immediate medical help should these symptoms occur. Recommend weight loss before repair for more favorable outcome. We discussed the risks of obesity as it relates to hernia surgery, periop complications, and recurrence rates. Pt voiced understanding and will see me again in 6 mo as we cont watchful waiting for now We discussed at length bariatric surgery options and she will consider that option as well Will entertain repair in the future if she is able to lose weight and maintain her weight loss or if hernia becomes more symptomatic All of her questions answered and concerns addressed Pt appreciative of the care Kanchan Palencia MD Referring Provider: CARLITO WALTON [[id number]] Allergies As of Date: 04/26/2022 Noted Allergy Reaction MELOXICAM 04/26/2022 14 - Other: See Comments Comments: headache Date Reviewed: 04/26/2022 Reviewed by: Jess Suero, MA - Fully Assessed Reason for Visit: New Patient [172] Hernia [1598] Primary Visit Diagnosis:Incisional hernia, without obstruction or gangrene [K43.2] Prescriptions as of 04/26/2022 - FLUoxetine (PROZAC) 10 mg capsule Take 10 mg by mouth once daily. - Phentermine HCl 37.5 mg capsule Take 37.5 mg by mouth once daily. - naratriptan (AMERGE) 2.5 mg tablet Take 2.5 mg by mouth once daily. - acetaminophen 325 mg-caffeine 40 mg-butalbital 50 mg (FIORICET) per capsule as needed. - acetaminophen-codeine (TYLENOL-COD #3) 300-30 mg per tablet Take 1 tablet by mouth every 6 hours as needed. - tiZANidine (ZANAFLEX) 4 mg tablet Take 8 mg by mouth as needed. 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 NO Have you had unintentional weight loss of 15 lbs/7 Kg in the last 3-6 months? NO Bowels: regular Wound: none Temperature: No Drains: No Encounter Status:Closed by KANCHAN PALENCIA on 04/26/22 [address] [facility] [address] ABD/PELV W CONon 04-12-20 CT ABD/PELV W CON Study: CT ABD/PELV W CON TECHNIQUE: Axial slices were obtained from the diaphragmatic domes through the pelvis following the uneventful intravenous administration of IV contrast. Coronal and sagittal reformats were provided. Dose reduction techniques were achieved by using automated exposure control and/or adjustment of mA and/or kV according to patient size and/or use of iterative reconstruction technique. COMPARISON: CT abdomen pelvis 09/04/2021 HISTORY: GENERALIZED ABDOMINAL PAIN FINDINGS: Chest: The imaged lung bases are clear. No pleural or pericardial effusion. Liver: Normal contour. No hepatic masses. Biliary: Status post cholecystectomy. Common bile duct is unremarkable. Adrenals: Normal. Pancreas: No ductal dilatation or peripancreatic stranding. Spleen: Normal size. Renal: Symmetric bilateral enhancement. No hydronephrosis. The ureters are normal in course and caliber. The urinary bladder is unremarkable. Hollow viscera: Normal caliber. The appendix is normal. Vascular: No significant abnormality. Mesentery/retroperiton eum: No free fluid, free air or focal stranding. No pathologically enlarged lymph nodes. Likely migrated surgical clip within the mesentery along the right anterior bladder dome Pelvic viscera: 3.8 cm left ovarian cyst. MSK: No acute or aggressive osseous abnormalities. Fat-containing ventral hernia similar to prior exams. Peripheral soft tissues are unremarkable. IMPRESSION: 1. No acute abdominopelvic abnormality. 2. Fat-containing ventral hernia similar to prior exams. Electronically authenticated by: YENI PARNELL Date: 2022-04-12 00:02 Normal [facility] CBC AUTO DIFFon 04-11-2022 BASO # 0.0 103/ul Normal 0.0-0.1 [facility] Comment on above: Performed By: #### RICHARDSON GALE UMICRO #### [facility] [address] [place] [address] Dr. Tho Hardy Basophils/100 WBC (Bld) 0.2 % Normal 0.2-2.0 [facility] Comment on above: Performed By: #### RICHARDSON GALE UMICRO #### [facility] [address] [place] [address] Dr. Tho Hardy EO # 0.1 103/ul Normal 0.0-0.7 [facility] Comment on above: Performed By: #### RICHARDSON GALE UMICRO #### [facility] [address] [place] [address] Dr. Tho Hardy Eosinophils/100 WBC (Bld) 0.7 % Critically low 0.9-7.0 [facility] Comment on above: Performed By: #### RICHARDSON GALE UMICRO #### [facility] [address] [place] [address] Dr. Tho Hardy Erythrocyte distribution width (RBC) [Ratio] 13.4 % Normal 11.0-15.0 [facility] Comment on above: Performed By: #### P REGRICHARDSON Kramer UMICRO #### [facility] [address] [place] [address] Dr. Tho Hardy Hematocrit (Bld) [Volume fraction] 39.9 % Normal 36.0-48.0 [facility] Comment on above: Performed By: #### P REGU, ERUR, UMICRO #### [facility] [address] [place] [address] Dr. Tho Hardy Hemoglobin (Bld) [Mass/Vol] 13.3 g/dL Normal 12.0-16.0 [facility] Comment on above: Performed By: #### P REGU, ERUR, UMICRO #### [facility] [address] [place] [address] Dr. hTo Hardy IG # 0.04 10e3/ul Critically high 0.00-0.03 [facility] Comment on above: Performed By: #### P REGU, ERUR, UMICRO #### [facility] [address] [place] [address] Dr. Tho Hardy IG % 0.4 % Normal 0.0-0.5 [facility] Comment on above: Performed By: #### P REGU, ERUR, UMICRO #### [facility] [address] [place] [address] Dr. Tho Hardy LYMPH # 2.8 103/ul Normal 1.2-3.8 [facility] Comment on above: Performed By: #### P REGU, ERUR, UMICRO #### [facility] [address] [place] [address] Dr. Tho Hardy Lymphocytes/100 WBC (Bld) 31.1 % Normal 20.5-60.0 [facility] Comment on above: Performed By: #### P REGU, ERUR, UMICRO #### [facility] [address] [place] [address] Dr. Tho Hardy MANUAL DIFF REQ NO Normal [facility] Comment on above: Performed By: #### P REGU, ERUR, UMICRO #### [facility] [address] [place] [address] Dr. Tho Hardy MCH (RBC) [Entitic mass] 29.8 pg Normal 26.7-34.0 [facility] Comment on above: Performed By: #### P REGU, ERUR, UMICRO #### [facility] [address] [place] [address] Dr. Tho Hardy MCHC (RBC) [Mass/Vol] 33.3 g/dL Normal 29.9-35.2 [facility] Comment on above: Performed By: #### P REGU, ERUR, UMICRO #### [facility] [address] [place] [address] Dr. Tho Hardy MCV (RBC) [Entitic vol] 89.5 fL Normal 81.0-99.0 [facility] Comment on above: Performed By: #### P REGU, ERUR, UMICRO #### [facility] [address] [place] [address] Dr. Tho Hardy MONO # 0.7 103/ul Normal 0.3-0.8 [facility] Comment on above: Performed By: #### P REGU, ERUR, UMICRO #### [facility] [address] [place] [address] Dr. Tho Hardy Monocytes/100 WBC (Bld) 7.3 % Normal 1.7-12.0 [facility] Comment on above: Performed By: #### P REGU, ERUR, UMICRO #### [facility] [address] [place] [address] Dr. Tho Hardy NEUT # 5.4 103/ul Normal 1.4-6.5 [facility] Comment on above: Performed By: #### P REGU, ERUR, UMICRO #### [facility] [address] [place] [address] Dr. Tho Hardy Neutrophils/100 WBC (Bld) 60.3 % Normal 43.0-75.0 [facility] Comment on above: Performed By: #### P REGU, ERUR, UMICRO #### [facility] [address] [place] [address] Dr. Tho Hardy Platelet mean volume (Bld) [Entitic vol] 9.1 fL Critically low 9.5-13.5 [facility] Comment on above: Performed By: #### P RICHARDSON MCNEIL UMICRO #### [facility] [address] [place] [address] Dr. Tho Hardy PLT 249 103/ul Normal 150-450 [facility] Comment on above: Performed By: #### RICHARDSON GALE UMICRO #### [facility] [address] [place] [address] Dr. Tho Hardy RBC 4.46 106/ul Normal 4.20-5.40 [facility] Comment on above: Performed By: #### RICHARDSON GALE UMICRO #### [facility] [address] [place] [address] Dr. Tho Hardy WBC 9.0 103/ul Normal 4.0-11.0 [facility] Comment on above: Performed By: #### RICHARDSON GALE UMICRO #### [facility] [address] [place] [address] Dr. Tho Hardy ER URINE PROFILEon 2 Bilirubin Ql (U) Negative Normal NEGATIVE [facility] Comment on above: Performed By: #### B MP #### [facility] [address] [place] [address] Dr. Tho Hardy Clarity (U) CLEAR Normal CLEAR [facility] Comment on above: Performed By: #### B MP #### [facility] [address] [place] [address] Dr. Tho Hardy Color (U) YELLOW Normal YELLOW [facility] Comment on above: Performed By: #### B MP #### [facility] [address] [place] [address] Dr. Tho RIVERA A micrscopic examination will be performed if indicated. Normal [facility] Comment on above: Performed By: #### B MP #### [facility] [address] [place] [address] Dr. Tho Hardy Glucose Ql (U) Negative Normal NEGATIVE [facility] Comment on above: Performed By: #### B MP #### [facility] [address] [place] [address] Dr. Tho Hardy Hemoglobin Ql (U) MODERATE Abnormal NEGATIVE [facility] Comment on above: Performed By: #### B MP #### [facility] [address] [place] [address] Dr. Tho Hardy Ketones Ql (U) Negative Normal NEGATIVE [facility] Comment on above: Performed By: #### B MP #### [facility] [address] [place] [address] Dr. Tho Hardy LEUKOCYTES Negative Normal NEGATIVE [facility] Comment on above: Performed By: #### B MP #### [facility] [address] [place] [address] Dr. Tho Hardy Nitrite Ql (U) Negative Normal NEGATIVE [facility] Comment on above: Performed By: #### B MP #### [facility] [address] [place] [address] Dr. Tho Hardy pH (U) 5.5 [pH] Normal 5-9 [facility] Comment on above: Performed By: #### B MP #### [facility] [address] [place] [address] Dr. Tho Hardy SPEC GRAVITY >=1.030 Abnormal 1.005-<=1.025 [facility] Comment on above: Performed By: #### B MP #### [facility] [address] [place] [address] Dr. Tho Hardy UA PROTEIN Negative Normal NEGATIVE/ TRACE [facility] Comment on above: Performed By: #### B MP #### [facility] [address] [place] [address] Dr. Tho Hardy UR MICRO IND INDICATED Normal [facility] Comment on above: Performed By: #### B MP #### [facility] [address] [place] [address] Dr. Tho Hardy Urobilinogen Qn (U) 0.2 {Roland'U}/dL Normal 0.2 - 1. 0 [facility] Comment on above: Performed By: #### B MP #### [facility] [address] [place] [address] Dr. Tho Hardy LIPASEon 04-11-2022 Lipase [Catalytic activity/Vol] 88.0 U/L Normal 73.0-393.0 [facility] Comment on above: Performed By: #### L ACT #### [facility] [address] [place] [address] Dr. Tho Hardy PREG HCG QUALon 04-11-2022 , QUAL Negative Normal NEGATIVE [facility] Comment on above: Performed By: #### P REG #### [facility] [address] [place] [address] Dr. Tho Hardy PROF 14(COMP METB)on 022 Albumin [Mass/Vol] 3.5 g/dL Normal 3.4-5.0 [facility] Comment on above: Performed By: #### L ACT #### [facility] [address] [place] [address] Dr. Tho Hardy Albumin/Globulin [Mass ratio] 0.9 {ratio} Normal [facility] Comment on above: Performed By: #### L ACT #### [facility] [address] [place] [address] Dr. Tho Hardy ALP [Catalytic activity/Vol] 73 U/L Normal 46-116 [facility] Comment on above: Performed By: #### L ACT #### [facility] [address] [place] [address] Dr. Tho Hardy ALT [Catalytic activity/Vol] 29 U/L Normal 14-59 [facility] Comment on above: Performed By: #### L ACT #### [facility] [address] [place] [address] Dr. Tho Hardy Anion gap [Moles/Vol] 10.4 mmol/L Normal [facility] Comment on above: Performed By: #### L ACT #### [facility] [address] [place] [address] Dr. Tho Hardy AST [Catalytic activity/Vol] 15 U/L Normal 15-37 [facility] Comment on above: Performed By: #### L ACT #### [facility] [address] [address] [address] Tho Hardy Bilirubin [Mass/Vol] 0.4 mg/dL Normal 0.2-1.0 [facility] Comment on above: Performed By: #### L ACT #### [facility] [address] [address] [address] Tho Hardy Calcium [Mass/Vol] 8.4 mg/dL Critically low 8.5-10.1 [facility] Comment on above: Performed By: #### L ACT #### [facility] [address] [address] [address] Tho Hardy Chloride [Moles/Vol] 103 mmol/L Normal 98-107 [facility] Comment on above: Performed By: #### L ACT #### [facility] [address] [place] [address] Dr. Tho Hardy CO2 [Moles/Vol] 27.8 mmol/L Normal 21.0-32.0 [facility] Comment on above: Performed By: #### L ACT #### [facility] [address] [place] [address] Dr. Tho Hardy Creatinine [Mass/Vol] 0.75 mg/dL Normal 0.55-1.02 [facility] Comment on above: Performed By: #### L ACT #### [facility] [address] [place] [address] Dr. Tho Hardy EGFR-AF CYMRAES >60 Normal >=60 [facility] Comment on above: Performed By: #### L ACT #### [facility] [address] [address] [address] Tho Hardy EGFR-NON AF CYMRAES >60 Normal >=60 [facility] Comment on above: Performed By: #### L ACT #### [facility] [address] [place] [address] Dr. Tho Hardy Globulin (S) [Mass/Vol] 3.7 g/dL Normal [facility] Comment on above: Performed By: #### L ACT #### [facility] [address] [place] [address] Dr. Tho Hardy Glucose [Mass/Vol] 88 mg/dL Normal 74-106 [facility] Comment on above: Performed By: #### L ACT #### [facility] [address] [address] [address] Tho Hardy Potassium [Moles/Vol] 3.2 mmol/L Critically low 3.5-5.1 [facility] Comment on above: Performed By: #### L ACT #### [facility] [address] [address] [address] Tho Hardy Protein [Mass/Vol] 7.2 g/dL Normal 6.4-8.2 [facility] Comment on above: Performed By: #### L ACT #### [facility] [address] [address] [address] Tho Hardy Sodium [Moles/Vol] 138 mmol/L Normal 136-145 [facility] Comment on above: Performed By: #### L ACT #### [facility] [address] [address] [address] Tho Hardy Urea nitrogen [Mass/Vol] 13.0 mg/dL Normal 7.0-18.0 [facility] Comment on above: Performed By: #### L ACT #### [facility] [address] [address] [address] Tho Hardy Urea nitrogen/Creatinine [Mass ratio] 17.3 mg/mg Normal [facility] Comment on above: Performed By: #### L ACT #### [facility] [address] [address] [address] Tho Hardy PROTIMEon 04-11-2022 INR Coag (PPP) [Relative time] 0.97 {INR} Normal [facility] Comment on above: Performed By: #### P RICHARDSON MCNEIL UMICRO #### [facility] [address] [address] [address] Tho Hardy INR GUIDELINES SEE BELOW Normal [facility] Comment on above: Result Comment: JOSEFINA RED INR: 2.0 - 3.0 CONDITIONS NOT LISTED BELOW 2.5 - 3.5 FOR PROSTHETIC HEART VALVE REPLACEMENT 2.5 - 3.5 RECURRENT THROMBOSIS Performed By: #### P KRISTIAN MCNEILR UMICRO #### [facility] [address] [place] [address] Dr. Tho Hardy PT Coag (PPP) [Time] 10.5 s Normal 9.0-11.6 [facility] Comment on above: Performed By: #### P RICHARDSON MCNEIL UMICRO #### [facility] [address] [place] [address] Dr. Tho Hardy PTTon 04-11-2022 aPTT Coag (Bld) [Time] 27.8 s Normal 22.3-36.2 [facility] Comment on above: Performed By: #### P RICHARDSON MCNEIL UMICRO #### [facility] [address] [place] [address] Dr. Tho Hardy URINE MICROSCOPIC ONLYon BACTERIA NONE SEEN Normal NONE SEEN [facility] Comment on above: Performed By: #### B MP #### [facility] [address] [place] [address] Dr. Tho Hardy Bacteria identified Cx Nom (U) NOT INDICATED Normal [facility] Comment on above: Performed By: #### B MP #### [facility] [address] [place] [address] Dr. Tho Hardy CAST NONE SEEN Normal NONE SEEN [facility] Comment on above: Performed By: #### B MP #### [facility] [address] [place] [address] Dr. Tho Hardy Crystals LM Nom (Urine sed) NONE SEEN Normal NONE SEEN [facility] Comment on above: Performed By: #### B MP #### [facility] [address] [place] [address] Dr. Tho Hardy Epithelial cells LM Ql (Urine sed) NONE SEEN Normal NONE SEEN /RARE [facility] Comment on above: Performed By: #### B MP #### [facility] [address] [place] [address] Dr. Tho Hardy MUCOUS NONE SEEN Normal NONE SEEN [facility] Comment on above: Performed By: #### B MP #### [facility] [address] [address] [address] Tho Hardy RBC 2-5 Abnormal 0-2 [facility] Comment on above: Performed By: #### B MP #### [facility] [address] [address] [address] Tho Hardy WBC NONE SEEN Normal NONE SEEN [facility] Comment on above: Performed By: #### B MP #### [facility] [address] [address] [address] Tho Hardy XR ANKLE LT MIN 3 Von 2021 XR ANKLE LT MIN 3 V EXAM: XR ANKLE LT MD N 3 V HISTORY: Left ankle pain COMPARISON: None. TECHNIQUE: 3 views FINDINGS: No osseous lesion, fracture, dislocation or subluxation. Joint spaces are normal. No visualized effusion. No visualized soft tissue edema. IMPRESSION: Normal x-rays Electronically authenticated by: AYAD CORTEZ Date: 2022-02-06 19:06 Normal [facility] Vital Signs Date Time Vital Sign Value Performing Clinician Danny rolle 05-16-2022 14:03-0400 Body weight 133.81 kg Rosa Maria Israel MD Work Phone: [facility] 05-16-2022 12:56-0400 Body height 152.[address] Work Phone: [facility] 05-16-2022 12:56-0400 Body weight 133.[address] Work Phone: [facility] Encounters Encounter Date Encounter Type Care Provider Facility Start: 11-11-2023 ambulatory BERE Wells acility:[facility] Start: 08-19-2023 End: 08-20-2023 ambulatory Carmen Coello Facility:[facility] [place] Start: 12-30-2022 End: 12-30-2022 ambulatory MITESH WHITMAN . Facility:[facility] Start: 12-17-2022 End: 12-17-[address] CARLITO WALTON . Facility:[facility] Start: 11-13-2022 End: 11-14-[address] VALERIE DONATO . Facility:[facility] Start: 10-30-[address] VALERIE DONATO . Facili ty:[facility] Start: 2022 End: 10-16-2022 ambulatory ISH EDGAR Facility:[facility] Start: 10-14-2022 End: 10-14-2022 ambulatory NATALIE YOONON Facility:[facility] Start: 09-26-2022 End: 09-26-2022 ambulatory NATALIE BOX Facility:[facility] Start: 08-04-2022 End: 08-04-2022 ambulatory TARA SAN Facility:[facility] Start: 07-09-2022 End: 07-09-[address] HERNAN MEYERS . Facility:[facility] Start: 05-16-2022 End: 05-16-2022 Patient encounter status Rosa Maria Israel MD Work Phone: Endocrinology BMI Start: 05-16-2022 End: 05-16-2022 ambulatory Rosa Maria Israel MD Work Phone: Endocrinology BMI Comment on above: Abnormal weight gain (Primary Dx); Preop testing; Morbid obesity with BMI of 50.0-59.9, adult (HCC); HANH (obstructive sleep apnea) Body mass index 50.0 -59.9, adult (HCC) (Primary Dx); Dietary counseling and surveillance Start: 05-16-2022 End: 05-16-2022 Telemedicine consultation with patient Rosa Maria Israel MD Work Phone: [facility]EL[facility]CC[facility] Start: 05-01-2022 End: 05-02-[address] CARLITO WALTON . Facility:[facility] Start: 04-11-2022 End: 04-12-[address] VALERIE DONATO . Facility:[facility] Start: 03-21-2022 End: 03-22-2022 ambulatory ISH EDGAR Facility:[facility] Start: 03-18-2022 End: 03-18-[address] VALERIE DONATO . Facility:[facility] Start: 03-14-2022 End: 04-04-2022 ambulatory JERED TOVAR Facility:[facility] Start: 02-14-2022 End: 02-15-2022 ambulatory ISH EDGAR Facility:[facility] Start: 02-06-2022 End: 02-06-[address] VALERIE DONATO . Facility:[facility] Plan of Treatment Date Care Activity Detail Author Start: 05-16-2022 End: 05-14-2023 25-hydroxyvitamin D3 [Mass/volume] in Serum or Plasma VITAMIN D 25 HYDROXY Lab Routine Abnormal weight gain Preop testing Morbid obesity with BMI of 50.0-59.9, adult (HCC) HANH (obstructive sleep apnea) Expected: 05/16/2022 (Approximate), Expires: 05/14/2023 [facility] Work Phone: Comment on above: Expected: 05/16/2022 (Approximate), Expires: 05/14/2023 Start: 05-16-2022 End: 05-14-2023 CBC panel - Blood by Automated count CBC Lab Routine Abnormal weight gain Preop testing Morbid obesity with BMI of 50.0-59.9, adult (HCC) HANH (obstructive sleep apnea) Expected: 05/16/2022 (Approximate), Expires: 05/14/2023 [facility] Work Phone: Comment on above: Expected: 05/16/2022 (Approximate), Expires: 05/14/2023 Start: 05-16-2022 End: 05-14-2023 Cobalamin (Vitamin B12) [Mass/volume] in Serum or Plasma VITAMIN B12 BLOOD Lab Routine Abnormal weight gain Preop testing Morbid obesity with BMI of 50.0-59.9, adult (HCC) HANH (obstructive sleep apnea) Expected: 05/16/2022 (Approximate), Expires: 05/14/2023 [facility] Work Phone: Comment on above: Expected: 05/16/2022 (Approximate), Expires: 05/14/2023 Start: 05-16-2022 End: 05-14-2023 Comprehensive metabolic 2000 panel - Serum or Plasma COMP METABOLIC PANEL Lab Routine Abnormal weight gain Preop testing Morbid obesity with BMI of 50.0-59.9, adult (HCC) HANH (obstructive sleep apnea) Expected: 05/16/2022 (Approximate), Expires: 05/14/2023 [facility] Work Phone: Comment on above: Expected: 05/16/2022 (Approximate), Expires: 05/14/2023 Start: 05-16-2022 End: 05-14-2023 Folate [Mass/volume] in Serum or Plasma FOLATE SERUM Lab Routine Abnormal weight gain Preop testing Morbid obesity with BMI of 50.0-59.9, adult (HCC) HANH (obstructive sleep apnea) Expected: 05/16/2022 (Approximate), Expires: 05/14/2023 [facility] Work Phone: Comment on above: Expected: 05/16/2022 (Approximate), Expires: 05/14/2023 Start: 05-16-2022 End: 05-14-2023 Hemoglobin A1c in Blood HGB A1C Lab Routine Abnormal weight gain Preop testing Morbid obesity with BMI of 50.0-59.9, adult (HCC) HANH (obstructive sleep apnea) Expected: 05/16/2022 (Approximate), Expires: 05/14/2023 [facility] Work Phone: Comment on above: Expected: 05/16/2022 (Approximate), Expires: 05/14/2023 Start: 05-16-2022 End: 05-14-2023 Iron and Iron binding capacity panel - Serum or Plasma IRON + TIBC Lab Routine Abnormal weight gain Preop testing Morbid obesity with BMI of 50.0-59.9, adult (HCC) HANH (obstructive sleep apnea) Expected: 05/16/2022 (Approximate), Expires: 05/14/2023 [facility] Work Phone: Comment on above: Expected: 05/16/2022 (Approximate), Expires: 05/14/2023 Start: 05-16-2022 End: 05-14-2023 Parathyrin.intact [Mass/volume] in Serum or Plasma PTH INTACT BLD Lab Routine Abnormal weight gain Preop testing Morbid obesity with BMI of 50.0-59.9, adult (HCC) HANH (obstructive sleep apnea) Expected: 05/16/2022 (Approximate), Expires: 05/14/2023 [facility] Work Phone: Comment on above: Expected: 05/16/2022 (Approximate), Expires: 05/14/2023 Start: 05-16-2022 End: 05-14-2023 Thyrotropin [Units/volume] in Serum or Plasma TSH BLD Lab Routine Abnormal weight gain Preop testing Morbid obesity with BMI of 50.0-59.9, adult (HCC) HANH (obstructive sleep apnea) Expected: 05/16/2022 (Approximate), Expires: 05/14/2023 [facility] Work Phone: Comment on above: Expected: 05/16/2022 (Approximate), Expires: 05/14/2023 Start: 05-16-2022 End: 07-16-2022 VITAMIN B1 (THIAMINE), WHOLE BLOOD VITAMIN B1 (THIAMINE), WHOLE BLOOD Lab Routine Abnormal weight gain Preop testing Morbid obesity with BMI of 50.0-59.9, adult (HCC) HANH (obstructive sleep apnea) Expected: 05/16/2022 (Approximate), Expires: 07/16/2022 [facility] Work Phone: Comment on above: Expected: 05/16/2022 (Approximate), Expires: 07/16/2022 Start: 05-09-2022 Influenza vaccination INFLUENZA (#1) [facility] Start: 05-05-2022 COVID-19 VACCINE (3 - Booster for Pfizer series) COVID-19 VACCINE (3 - Booster for Pfizer series) [facility] Start: 2014 PAP TESTING PAP TESTING [facility] Start: 2012 Urine microalbumin profile DTAP,TDAP,TD (1 - Tdap) [facility] Start: 2011 HEPATITIS C SCREENING HEPATITIS C SC [facility] Start: 2011 HIV SCREENING HIV SCREENING [facility] Start: 2005 Adult depression screening assessment DEPRESSION SCREENING [facility] Start: 1993 HEPATITIS B (1 of 3 - 3-dose series) HEPATITIS B (1 of 3 - 3-dose series) [facility] End: 05-14-2023 ECG COMPLETE ECG COMPLETE ECG Routine Abnormal weight gain Preop testing Morbid obesity with BMI of 50.0-59.9, adult (HCC) HANH (obstructive sleep apnea) 1 Occurrences starting 05/16/2022 until 05/14/2023 [facility] Work Phone: Comment on above: 1 Occurrences starti ng 05/16/2022 until 05/14/2023 End: 06-13-2023 Radiologic exam chest 2 views XR CHEST 2V FRONTAL/LAT Radiology Routine Abnormal weight gain Preop testing Morbid obesity with BMI of 50.0-59.9, adult (HCC) HANH (obstructive sleep apnea) 1 Occurrences starting 05/16/2022 until 06/13/2023 [facility] Work Phone: Comment on above: 1 Occurrences starti ng 05/16/2022 until 06/13/2023 [facility] Payers Date Payer Category Payer Medicaid [employer] [employer] [employer] [id number] 2018-Present [phone] [address] [place] [address] Medicaid [id number] 1993 Unknown [id number] [id number] 1993 Unknown [id number] 2.16.840.1.848545.3.579.2.593 1993 Unknown [id number] 2.16.840.1.207728.3.579.2.593 1993 Unknown [id number] 2.16.840.1.368286.3.579.2.593 1993 Unknown [id number] 2.16.840.1.665896.3.579.2.593 1993 Unknown [id number] 2.16.840.1.574765.3.579.2.593 1993 Unknown [id number] 2.16.840.1.517969.3.579.2.593 1993 Unknown [id number] 2.16.840.1.471919.3.579.2.593 1993 Unknown [id number] 2.16.840.1.195702.3.579.2.593 1993 Unknown [id number] 2.16.840.1.966214.3.579.2.593 1993 Unknown [id number] 2.16.840.1.927842.3.579.2.593 1993 Unknown [id number] 2.16.840.1.231917.3.579.2.593 1993 Unknown [id number] 2.16.840.1.921783.3.579.2.593 1993 Unknown [id number] 2.16.840.1.097827.3.579.2.593 1993 Unknown [id number] 2.16.840.1.174893.3.579.2.593 1993 Unknown [id number] 2.16.840.1.018077.3.579.2.593 1993 Unknown [id number] 2.16.840.1.253780.3.579.2.727 1993 Unknown [id number] 2.16.840.1.374089.3.579.2.727 1959 Unknown [id number] Social History Date Type Detail Facility Start: 04-26-2022 Tobacco smoking stat [facility] Never smoked tobacco [facility] Start: 04-26-2022 Tobacco use and exposure Smoke less tobacco non-user [facility] Start: 1993 Sex Assigned At Not on file [facility] Start: 04-14-2022 End: 04-24-2022 Exposure to SARS-CoV-2 (event) Not sure [facility] Clinical Notes 02-15-2022 to 05-17-2022 Patient InstructionsPatient InstructionsRosa Maria Israel MD - 05/16/2022 2:[address] - 05/16/2022 12:53 PM EDT Note Date & Type Note Facility 05-17-[address] - 05/17/2022 1:33 PM EDT 1. Read Nutritional Guidelines Section of Your Guide to Surgery by next session 2. Do not skip meals 3. Use protein shake 1x per day to replace any skipped meals or for breakfast 4. Use the Healthy Plate Method of portion control for lunch and dinner 4 oz lean meat (fish, chicken, pork tenderloin, turkey, seafood, eggs/cheese) 1/2 plate non starchy vegetables (salad, greens, cabbage, spinach, brussels sprouts, broccoli, carrots, celery, peppers, green beans, cauliflower) 1 cup or less starch/starchy vegetables (corn, peas, beans, winter squash, sweet potato, brown rice, whole grain pasta, whole grain bread products, quinoa) 5. Physical activity: aim to gradually increase with goal of 150+ minutes per week of cardio and strength training exercise 6. Drink 64 ounces per day water. Fluids should follow these guidelines: No carbonation, no caffeine, no calories, no alcohol. 7. Read Nutrition Guidelines section before next visit. [email or web address]?la=en Pre-op goal weight: 276 pounds Protein needs: 70 gm per day Nutrition Monitoring & Evaluation: Weight loss of 1-2 pounds per week and adherence to above recommendations Criteria: Patient update and weight check Need for Follow up: 1 month, please call [phone] documented in this encounter [facility] 05-16-2022 Instructions Rosa Maria Israel MD - 05/16/2022 5:19 PM EDT INSTRUCTIONS: 1) Please contact me (Dr. Israel) if you have not heard about your test results within a few days after you had them done. Thank you: Contact information: [facility] [place] M61/Attention: Dr. Israel [address] [place] [address] 2) Please check with your insurance company regarding cost/coverage of any tests ordered prior to having them completed. Cloleen Salcido , Thank you for completing your visit today and we welcome you to the surgical program. We are sure that you will still have some additional questions and encourage you to reach out to your care provider via [employer] OR your Patient Navigator. Patient Navigators are assigned alphabetically by patient last name. The contact information for each Navigator is listed below. Last names A-E= [email or web address] Last names F-L = [email or web address] Last names M-R= [email or web address] Last names S-Z= [email or web address] Additionally, you may find many of the answers to your questions in our Guide To Surgery book. This book includes step by step instructions for completing your surgical path and resources for the surgical procedures, medical information, and nutrition/diet information. We would like you to review this book as your providers will refer to information contained in it. For now, please follow the link below to read online version of the book, but next time you have a FACE to FACE visit with one of your providers, please feel free to ask for a hard copy. [email or web address]?la=en Once you complete all of the requirements (testing, consultations, diet, etc) from each provider, please call [phone] and select option #5 to initiate insurance approval. Please note scheduling information It is important to keep track of your scheduled appointments to ensure successful completion of our surgical program. Any missed appointments can further delay your pre-surgical work-up. [facility] does offer an opt-in option for getting text message appointment reminders. Please follow the link below if you would like to opt into this service. [email or web address] As part of your surgical work up, SOME or ALL of the following tests may have been ordered. It will be your responsibility to schedule and complete these tests in order to proceed with your bariatric surgery. Please review the following instructions on how to get your testing scheduled. -EKG, Chest X-ray, Ultrasound- An appointment is needed for each of these tests. You may call your local [facility] to get an appointment. - Lab work- No appointment is needed for this, you may complete at any [facility]. These are usually fasting labs, please be sure to fast (only water permitted) for 10-12 hours prior to the test. -Sleep Study- Please call [phone] or [phone] to get this appointment set up. -Sleep Medicine Consult- (Only needed if sleep study confirms sleep apnea) Please call [phone] or [phone] to schedule an appointment. Any testing that is completed outside of [facility] will need faxed to [phone]. We look forward to working with you on this journey, Rosa Maria Israel MD documented in this encounter [facility] 05-16-2022 Note HNO ID: [id number] Author: Rosa Maria Israel MD Service: ? Author Type: Physician Type: Progress Notes Filed: 05/16/2022 5:22 PM Note Text: This Team Access Model visit is a virtual encounter. It required patient-provider interaction for the medical decision making as documented below. Both audio and visual components utilized for this visit. Consent from patient received to conduct visit using telehealth. This visit was performed virtually due to the COVID-19 pandemic as an effort to protect patients and minimize exposure. CC/HPI: 26 year old lady presents for medical evaluation prior to anticipated medical/surgical treatment of obesity. The patient is interested in surgical weight loss. Goal/motivation for weight loss? Health/QOL/hernia repair -04/26/2022 OV Gen Surgery/hernia -has upcoming appts Weight gain history: Age of onset: since 6 years ago or so after having kids Inciting/contributing factors to weight gain: as above What gets in the way of your weight loss? Minimum weight: 140-about 9 years Maximum weight: 310 lbs What is your weight loss goal? Previous weight loss attempts: phentermine; self-directed diets, will be trying Ozempic injections next month with her PCP Medications (prescription or non-prescription) for weight loss? Phentermine, Ozempic What has worked the best so far for you in the past? History of Eating disorders? (bulimia, anorexia, binge eating?) no Family history of obesity? Diet: -B: skipped -L: beef stick and 2 slices of provolone cheese -D: chicken david and some baked beans -snacks: fruit salad after dinner -beverages: rec'd protein shake shake as a meal substitute and adv to stop pop/soda/juice/sugary/caloric/c arbonated beverages: Exercise: walking; limited exercise d/t has diastasis rectus Functional Capacity: -Walk 4 blocks on level ground without symptoms? -Climb 2 flights of stairs without symptoms? Can walk up a flight -heavy housework without symptoms? Can carry in groceries/do laundry Previous stress testing/cardiac testing and why? -has not needed testing; did have a recent lipid panel-which looked fine Sleep apnea screen: has been tested and diagnosed-she is on a list for [id number] sleep study was about Sochx: -single/: -children: yes -occupation: works at [employer] -tobacco use: non-smoker -ETOH: 2 per month ALL: See [employer] LABS: IMAGING: PROC: CARDIAC: MEDS: See Epic PMH: -depression/anxiety-Prozac -has taken phentermine (1/2 tablet) -migraines-prn Amerge (Naratriptan); prn Fioricet -hernia pain-T3 prn For women: control method: tubal ligation-advised against pregancy for at least 12-18 months after bariatric surgery PSHX: FLUoxetine (PROZAC) 10 mg capsule Take 10 mg by mouth once daily. Phentermine HCl 37.5 mg capsule Take 37.5 mg by mouth once daily. naratriptan (AMERGE) 2.5 mg tablet Take 2.5 mg by mouth once daily. acetaminophen 325 mg-caffeine 40 mg-butalbital 50 mg (FIORICET) per capsule as needed. acetaminophen-codeine (TYLENOL-COD #3) 300-30 mg per tablet Take 1 tablet by mouth every 6 hours as needed. tiZANidine (ZANAFLEX) 4 mg tablet Take 8 mg by mouth as needed. No past medical history on file. No past surgical history on file. Review of patient's allergies indicates: Wai Inhibitors Cough Sulfa (Sulfonamide * Unknown Ultram (Tramadol Hc* Hives PHYSICAL EXAMINATION: Wt 133.8 kg (295 lb) LMP 04/19/2022 BMI 57.61 kg/m? General: alert and appropriate, in no distress, well-hydrated, well nourished, happy, smiling, interactive, and pleasant lady Skin: no rash noted Head: normocephalic, no abnormality or lesion noted Eyes: no injection and visual acuity is grossly normal Respiratory: breathing non-labored REVIEW OF SYSTEMS General: As per HPI; no recent fevers/chills/fatigue, or recent hospitalizations. Weight and appetite stable. No recent travel, medication or diet changes. Overall health generally stable. *overall stable HEENT: No history of, or new or out-of-the ordinary, vision, hearing or other ENT problems *no hearing or vision problems CV: No history of CAD, CVA or other cardiovascular disease or conditions. No new or out of the ordinary chest pain/palpitations/ABDULAZIZ/orthopnea /PND/claudication/other cardiac, valvular or vascular issues *no h/o MD, CAD, CHF, no cp/palpitations Respiratory: Denies any known h/o lung disease, disorders or conditions. No new or out of the ordinary SOB/cough/other respiratory disease *no asthma/copd or toher lung issues (outgrew asthma); no cough/sob GI: Denies any known h/o stomach, liver, pancreas, intestinal or colonic disease, Disorders or conditions. No odyno/dysphagia/abdominal pain/N/V/diarrhea/constipation/ bloody stools or other GI issues *no liver/colon or intestine d/o; s/p GB surgery : B)women: LMP?//rash/discharge/p elvic pain/menstrual (more content not included)... [facility] 05-16-2022 Note HNO ID: [id number] Author: Miceala Cavazos RD Service: ? Author Type: Registered Dietitian Type: Progress Notes Filed: 05/17/2022 1:34 PM Note Text: [facility] Nutrition Therapy: Virtual Consult - Initial Assessment This visit was performed virtually due to the COVID-19 epidemic as an effort to protect patients and minimize exposure. Consent from patient received to conduct visit virtually. This Team Access Model visit is a virtual encounter. It required patient-provider interaction for the medical decision making as documented below. 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 Weight per patient: 295# Most recent height and weight per EPIC Height: Last 1 Encounter Ht Readings: Date: Ht: 04/26/2022 152.4 cm (5') Weight: Last 1 Encounter Wt Readings: Date: Wt: 04/26/2022 138.3 kg (305 lb) Body mass index is 57.61 kg/m?. Resting Metabolic Rate: 2034 Malnutrition Screening Significant unintentional weight loss? No Eating less than 75% of usual intake for more than 2 weeks? No Potential Signs of Inflammation: no identifiable sources RECOMMENDED MALNUTRITION DIAGNOSIS: NO MALNUTRITION IDENTIFIED Educational materials provided: BMI Nutrition Guidelines Patient presents for initial MNT in preparation for bariatric surgery, interested in LSG with Dr. Chen. Height and weight discussed today. Presents with class III obesity, Body mass index is 57.61 kg/m?. Significant prior medical history include PCOS, HANH. Patient has high weight loss expectations, anticipating weight loss of 135 pounds following surgery (45% TWL), indicating a desired weight of 160 pounds. Patient has basic understanding of weight loss surgery and nutritional implications following surgery. Previous diet attempts include self directed calorie restriction and currently taking Adipex. Weight history significant for weight cycling with diet attempts and post- weight retention. Greatest barrier to weight loss in the past increased portion intake and decreased physical activity with ankle pain. Diet recall indicates inconsistent eating pattern with breakfast occasionally skipped. Dinner tends to be fairly well balanced although low intake of non-starchy vegetables. Small portions and lack of balanced meal at breakfast and lunch likely impairing satiety and preventing desired weight loss. Fluids not yet meeting recommendations with inadequate water and daily intake of sugar sweetened and carbonated beverages, although she has recently decreased SSB intake. Physical activity is limited to ADL's although she occasionally walks. [place] body weight: 128 lbs. Excess body weight: 167 lbs. Goal weight pre-op: 276 lbs. Protein needs estimated: 70 (1.2 g protein/kg IBW) Patient meets the National Institutes of Health guidelines for weight loss surgery and has [employer] Insurance therefore is required to complete 6 months of Nutrition Intervention for clearance for surgery. Today is visit 1 of 6. Nutrition Diagnosis: Overweight/obesity, related to, food/nutrition - related knowledge deficit, as evidenced by BMI above normative standard for age and gender. Nutrition Intervention 05/16/2022: Modify type and amount of food consumed for meals and snacks: 1. Read Nutritional Guidelines Section of Your Guide to Surgery by next session 2. Do not skip meals 3. Use protein shake 1x per day to replace any skipped meals or for breakfast 4. Use the Healthy Plate Method of portion control for lunch and dinner 4 oz lean meat (fish, chicken, pork tenderloin, turkey, seafood, eggs/cheese) 1/2 plate non starchy vegetables (salad, greens, cabbage, spinach, brussels sprouts, broccoli, carrots, celery, peppers, green beans, cauliflower) 1 cup or less starch/starchy vegetables (corn, peas, beans, winter squash, sweet potato, brown rice, whole grain pasta, whole grain bread products, quinoa) 5. Physical activity: aim to gradually increase with goal of 150+ minutes per week of cardio and strength training exercise 6. Drink 64 ounces per day water. Fluids should follow these guidelines: No carbonation, no caffeine, no calories, no alcohol. 7. Read Nutrition Guidelines section before next visit. [email or web address]?[email or web address] Pre-op goal weight: 276 pounds Protein (more content not included)... [facility] 09-08-2022 History of Presen t illness Narrative This Team Access Model visit is a virtual encounter. It required patient-provider interaction for the medical decision making as documented below. Both audio and visual components utilized for this visit. Consent from patient received to conduct visit using telehealth. This visit was performed virtually due to the COVID-19 pandemic as an effort to protect patients and minimize exposure. CC/HPI: 26 year old lady presents for medical evaluation prior to anticipated medical/surgical treatment of obesity. The patient is interested in surgical weight loss. Goal/motivation for weight loss? Health/QOL/hernia repair -04/26/2022 OV Gen Surgery/hernia -has upcoming appts Weight gain history: Age of onset: since 6 years ago or so after having kids Inciting/contributing factors to weight gain: as above What gets in the way of your weight loss? Minimum weight: 140-about 9 years Maximum weight: 310 lbs What is your weight loss goal? Previous weight loss attempts: phentermine; self-directed diets, will be trying Ozempic injections next month with her PCP Medications (prescription or non-prescription) for weight loss? Phentermine, Ozempic What has worked the best so far for you in the past? History of Eating disorders? (bulimia, anorexia, binge eating?) no Family history of obesity? Diet: -B: skipped -L: beef stick and 2 slices of provolone cheese -D: chicken david and some baked beans -snacks: fruit salad after dinner -beverages: rec'd protein shake shake as a meal substitute and adv to stop pop/soda/juice/sugary/caloric/c arbonated beverages: Exercise: walking; limited exercise d/t has diastasis rectus Functional Capacity: -Walk 4 blocks on level ground without symptoms? -Climb 2 flights of stairs without symptoms? Can walk up a flight -heavy housework without symptoms? Can carry in groceries/do laundry Previous stress testing/cardiac testing and why? -has not needed testing; did have a recent lipid panel-which looked fine Sleep apnea screen: has been tested and diagnosed-she is on a list for [id number] sleep study was about Sochx: -single/: -children: yes -occupation: works at [employer] -tobacco use: non-smoker -ETOH: 2 per month ALL: See Epic LABS: IMAGING: PROC: CARDIAC: MEDS: See Epic PMH: -depression/anxiety-Prozac -has taken phentermine (1/2 tablet) -migraines-prn Amerge (Naratriptan); prn Fioricet -hernia pain-T3 prn For women: control method: tubal ligation-advised against pregancy for at least 12-18 months after bariatric surgery PSHX: FLUoxetine (PROZAC) 10 mg capsule Take 10 mg by mouth once daily. Phentermine HCl 37.5 mg capsule Take 37.5 mg by mouth once daily. naratriptan (AMERGE) 2.5 mg tablet Take 2.5 mg by mouth once daily. acetaminophen 325 mg-caffeine 40 mg-butalbital 50 mg (FIORICET) per capsule as needed. acetaminophen-codeine (TYLENOL-COD #3) 300-30 mg per tablet Take 1 tablet by mouth every 6 hours as needed. tiZANidine (ZANAFLEX) 4 mg tablet Take 8 mg by mouth as needed. No past medical history on file. No past surgical history on file. Review of patient's allergies indicates: Wai Inhibitors Cough Sulfa (Sulfonamide * Unknown Ultram (Tramadol Hc* Hives PHYSICAL EXAMINATION: Wt 133.8 kg (295 lb) LMP 04/19/2022 BMI 57.61 kg/m General: alert and appropriate, in no distress, well-hydrated, well nourished, happy, smiling, interactive, and pleasant lady Skin: no rash noted Head: normocephalic, no abnormality or lesion noted Eyes: no injection and visual acuity is grossly normal Respiratory: breathing non-labored REVIEW OF SYSTEMS General: As per HPI; no recent fevers/chills/fatigue, or recent hospitalizations. Weight and appetite stable. No recent travel, medication or diet changes. Overall health generally stable. *overall stable HEENT: No history of, or new or out-of-the ordinary, vision, hearing or other ENT problems *no hearing or vision problems CV: No history of CAD, CVA or other cardiovascular disease or conditions. No new or out of the ordinary chest pain/palpitations/ABDULAZIZ/orthopnea /PND/claudication/other cardiac, valvular or vascular issues *no h/o MD, CAD, CHF, no cp/palpitations Respiratory: Denies any known h/o lung disease, disorders or conditions. No new or out of the ordinary SOB/cough/other respiratory disease *no asthma/copd or toher lung issues (outgrew asthma); no cough/sob GI: Denies any known h/o stomach, liver, pancreas, intestinal or colonic disease, Disorders or conditions. No odyno/dysphagia/abdominal pain/N/V/diarrhea/constipation/ bloody stools or other GI issues *no liver/colon or intestine d/o; s/p GB surgery : B)women: LMP?//rash/discharge/p elvic pain/menstrual problems *LMP: end march-PCOS C) either: No known h/o any chronic kidney; urinary or bladder disease, disorders or conditions; Denies any renal stones/dysuria/hematuria/urgenc y/polyuria/other issues/concerns *no h/o cKd or bladder issue Heme/onc: No known h/o any bleeding or clotting disorder, PE/DVT/anemia, or other blood disorder or condition No h/o cancer/bleeding or clotting problems/unusual bruising or other hematologic/oncologic issues *no h/o cancer or PE/DVT; no anemia or low iron Neuro: No new or unusual ALDANA/weakness/dizziness. No paresthesias/temperature sensation changes or disturbances/weakness/h/o CVA or seizures or other neurologic problems *no h/o CVA/sz or other neuro Endo: No known thryoid or DM or other endocrine or metabolic disease, disorders or conditions *+PCOS; no h/o DM/thyroid/or other endo Musk/Rheum: Denies any h/o disabling or chronic back or other pain; no h/o gout, SLE, RA or other types of arthritis. No new/unusual arthralgias, bone, muscle or joint problems, h/o autoimmune disease, gout or arthritis Autoimmune/Allergy: Skin: No rashes/pruritis/color changes. No other skin problems or issues. Psych: No h/o anxiety/depression or other psychiatric problems Other providers: -pCP -Ob-gyne ASSESSMENT: Reviewed principles of energy metabolism, caloric intake and expenditure, and rationale for treatment program. Also reinforced need for reduced calorie, low fat diet and increased physical Activity. 1)Morbid obesity May be considered at acceptable risk to proceed with bariatric surgery if the following conditions met: baseline ECG normal, or stable/unchanged compared to previous examinations. No further noninvasive cardiac testing needed IF the patient has no intermediate clinical risk factors, (IDDM, renal failure, CHF, CAD, and CVA) and has a normal or adequate functional capacity, and depending on the results of tests, consults (and prior records/test results if requested) -check presurgical labs, CXR, EKG (s/p GB surgery) 2)HANH-has already been diagnsoed with HANH (test done either Oct/November per patient), and she is awaiting receipt of cpap Rosa Maria Israel MD I spent a total of 45 minutes on the date of the service which included preparing to see the patient, [id number] patient care, completing clinical documentation, obtaining and/or reviewing separately obtained history, counseling and educating the patient/family/caregiver, ordering medications, tests, or procedures, and care coordination (not separately reported). documented in this encounter [facility] 05-16-2022 History of Presen t illness Narrative [facility] Nutrition Therapy: Virtual Consult - Initial Assessment This visit was performed virtually due to the COVID-19 epidemic as an effort to protect patients and minimize exposure. Consent from patient received to conduct visit virtually. This Team Access Model visit is a virtual encounter. It required patient-provider interaction for the medical decision making as documented below. 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) Additional Activity: Lightly active (Light exercise: planned physical activity 1-3 days/week) Diet History: Breakfast - skips OR eggs Snack - none Lunch - beef stick, cheese, fruit Snack - none Dinner - chicken/steak/pork, pasta/corn OR shrimp, pasta essence Snack - fruit Beverages - 32-48 fl oz water, juice, 1-2 regular soda per day Supplements - none ANTHROPOMETRICS Height per patient: 60 Weight per patient: 295# Most recent height and weight per EPIC Height: Last 1 Encounter Ht Readings: Date: Ht: 04/26/2022 152.4 cm (5') Weight: Last 1 Encounter Wt Readings: Date: Wt: 04/26/2022 138.3 kg (305 lb) Body mass index is 57.61 kg/m . Resting Metabolic Rate: 2034 Malnutrition Screening Significant unintentional weight loss? No Eating less than 75% of usual intake for more than 2 weeks? No Potential Signs of Inflammation: no identifiable sources RECOMMENDED MALNUTRITION DIAGNOSIS: NO MALNUTRITION IDENTIFIED Educational materials provided: BMI Nutrition Guidelines Patient presents for initial MNT in preparation for bariatric surgery, interested in LSG with Dr. Chen. Height and weight discussed today. Presents with class III obesity, Body mass index is 57.61 kg/m . Significant prior medical history include PCOS, HANH. Patient has high weight loss expectations, anticipating weight loss of 135 pounds following surgery (45% TWL), indicating a desired weight of 160 pounds. Patient has basic understanding of weight loss surgery and nutritional implications following surgery. Previous diet attempts include self directed calorie restriction and currently taking Adipex. Weight history significant for weight cycling with diet attempts and post- weight retention. Greatest barrier to weight loss in the past increased portion intake and decreased physical activity with ankle pain. Diet recall indicates inconsistent eating pattern with breakfast occasionally skipped. Dinner tends to be fairly well balanced although low intake of non-starchy vegetables. Small portions and lack of balanced meal at breakfast and lunch likely impairing satiety and preventing desired weight loss. Fluids not yet meeting recommendations with inadequate water and daily intake of sugar sweetened and carbonated beverages, although she has recently decreased SSB intake. Physical activity is limited to ADL's although she occasionally walks. [place] body weight: 128 lbs. Excess body weight: 167 lbs. Goal weight pre-op: 276 lbs. Protein needs estimated: 70 (1.2 g protein/kg IBW) Patient meets the National Institutes of Health guidelines for weight loss surgery and has [employer] therefore is required to complete 6 months of Nutrition Intervention for clearance for surgery. Today is visit 1 of 6. Nutrition Diagnosis: Overweight/obesity, related to, food/nutrition - related knowledge deficit, as evidenced by BMI above normative standard for age and gender. Nutrition Intervention 05/16/2022: Modify type and amount of food consumed for meals and snacks: 1. Read Nutritional Guidelines Section of Your Guide to Surgery by next session 2. Do not skip meals 3. Use protein shake 1x per day to replace any skipped meals or for breakfast 4. Use the Healthy Plate Method of portion control for lunch and dinner 4 oz lean meat (fish, chicken, pork tenderloin, turkey, seafood, eggs/cheese) 1/2 plate non starchy vegetables (salad, greens, cabbage, spinach, brussels sprouts, broccoli, carrots, celery, peppers, green beans, cauliflower) 1 cup or less starch/starchy vegetables (corn, peas, beans, winter squash, sweet potato, brown rice, whole grain pasta, whole grain bread products, quinoa) 5. Physical activity: aim to gradually increase with goal of 150+ minutes per week of cardio and strength training exercise 6. Drink 64 ounces per day water. Fluids should follow these guidelines: No carbonation, no caffeine, no calories, no alcohol. 7. Read Nutrition Guidelines section before next visit. [email or web address] Pre-op goal weight: 276 pounds Protein needs: 70 gm per day Nutrition Monitoring & Evaluation: Weight loss of 1-2 pounds per week and adherence to above recommendations Criteria: Patient update and weight check Need for Follow up: 1 month, please call [phone] MNT Billing Type: Initial Assess/15 min 2 units Signed by: Micaela Cavazos RD documented in this encounter [facility] 04-26-2022 Note HNO ID: [id number] Author: Kanchan Palencia MD Service: ? Author Type: Physician Type: Progress Notes Filed: 04/26/2022 2:32 PM Note Text: Consultation requested by Dr. Carlito Walton for an opinion regarding incisional hernia. My final recommendations will be communicated back to the requesting physician by way of shared medical record or letter via US mail Pt w remote hx of saul floreze. Was seen in ED at [facility] for abd pain in epigastric area. She had no obstructive symptoms and pain was focal in the area. She had CT scan revealing incisional hernia above the umbilicus, presumably at site of port site from the lap david. No mention of bowel incarceration or involv in the hernia. Of note she is at BMI 60 but has recently started on weight loss No past medical history on file. PSH: as above Current Outpatient Medications on File Prior to Visit Medication Sig FLUoxetine (PROZAC) 10 mg capsule Take 10 mg by mouth once daily. Phentermine HCl 37.5 mg capsule Take 37.5 mg by mouth once daily. naratriptan (AMERGE) 2.5 mg tablet Take 2.5 mg by mouth once daily. acetaminophen 325 mg-caffeine 40 mg-butalbital 50 mg (FIORICET) per capsule as needed. acetaminophen-codeine (TYLENOL-COD #3) 300-30 mg per tablet Take 1 tablet by mouth every 6 hours as needed. tiZANidine (ZANAFLEX) 4 mg tablet Take 8 mg by mouth as needed. No current facility-administered medications on file prior to visit. Social History Tobacco Use Smoking status: Never Smokeless tobacco: Never No family history on file. No fever No night sweats No malaise No rash No jaundice No weight loss No N/V/D/C epigastric abd pain Blood pressure 140/84, pulse 104, height 152.4 cm (5'), weight (!) 138.3 kg (305 lb), last menstrual period 04/19/2022, SpO2 98 %. WAD Breathing comfortably on RA RRR Abd is obese, soft, NT and ND I was not able to palpate hernia on exam given body habitus No jaundice CT scan report avail but not images A/p: incisional hernia Aspects of hernia disease discussed with patient. We discussed aspects of hernia incarceration and risk of strangulation. The patient voiced understanding and will seek immediate medical help should these symptoms occur. Recommend weight loss before repair for more favorable outcome. We discussed the risks of obesity as it relates to hernia surgery, periop complications, and recurrence rates. Pt voiced understanding and will see me again in 6 mo as we cont watchful waiting for now We discussed at length bariatric surgery options and she will consider that option as well Will entertain repair in the future if she is able to lose weight and maintain her weight loss or if hernia becomes more symptomatic All of her questions answered and concerns addressed Pt appreciative of the care Kanchan Palencia MD [facility] 03-21-2022 Note PROCEDURE: XR FOOT L T MIN 3 VIEWS COMPARISON: None. HISTORY: Pain in left foot FINDINGS: BONES:No fracture, acute abnormality, or significant arthropathy. SOFT TISSUES:Negative. No visible soft tissue swelling. EFFUSION:None visible. OTHER: Negative. IMPRESSION: No acute abnormality Electronically authenticated by: AYAD MALCOLM Date: 2022-03-21 19:14 [facility] 02-15-2022 Note PROCEDURE: XR ANKLE LT MIN 3 V COMPARISON: 02/07/2020 HISTORY: Pain of left ankle joint FINDINGS: BONES:No fracture, acute abnormality, or significant arthropathy. SOFT TISSUES:Negative. No visible soft tissue swelling. EFFUSION:None visible. OTHER: Negative. IMPRESSION: No acute abnormality Electronically authenticated by: AYAD MALCOLM Date: 2022-02-15 07:35 [facility] Evaluation note Diagnosis Abnormal weight gain- Primary Preop testing Preoperative examination, unspecified Morbid obesity with BMI of 50.0-59.9, adult (HCC) Morbid obesity HANH (obstructive sleep apnea) Obstructive sleep apnea (adult) (pediatric) [facility] Diagnosis Body mass index 50.0-59.9, adult (HCC)- Primary Body Mass Index 50.0-59.9, adult Dietary counseling and surveillance Dietary surveillance and counseling [facility] Outpatient Procedure (Routine) - Pending Review Specialty Diagnoses / Procedures Referred By Reg flores Referred [facility] Diagnoses Abnormal weight gain Preop testing Morbid obesity with BMI of 50.0-59.9, adult (HCC) HANH (obstructive sleep apnea) Procedures ECG COMPLETE ECG ROUTINE ECG W/LEAST 12 LDS W/I&R Rosa Maria Israel MD [address] [place] [address] [facility] [place] [id number] [facility] [place] [address] Referral ID Status Reason Start Date Expiration Date Visits Requested Visits Authorized [id number] Pending Review Auto-Generat ed Referral 05/16/2022 05/14/2023 1 1 [facility] Summary Purpose Family History No Family History Records FoundNo Family History Records FoundNo Family History Records Found Advance Directives No Advanced Directives Records FoundNo Advanced Directives Records FoundNo Advanced Directives Records Found Additional Source Comments Source Comments (unrecognize d section and content) In the event this informatio n is protected by the Federal Confidentiality of Alcohol and Drug Abuse Patient Records regulations: The Federal rules restrict any use of the information to criminally investigate or prosecute any alcohol or drug abuse patient.[facility] the event this information is protected by the Federal Confidentiality of Alcohol and Drug Abuse Patient Records regulations: The Federal rules restrict any use of the information to criminally investigate or prosecute any alcohol or drug abuse patient.[facility] Reason for Visit (unrecogniz ed section and content) Reason Comments New Patient Reason Comments Patient Education Assessment Care Teams (unrecognized sec tion and content) Rad[facility] Control Health Physicist Relationship Specialty Start Date End Date Carlito Walton, DO [address] [place] [address] Referring LETTUCE CUTTER 04/23/22 Radiation Control Health Physicist Relationship Specialty Start Date End Date Carlito Walton, DO [address] [place] [address] Referring LETTUCE CUTTER 04/23/22 INFORMATION SOURCE (unrecogn ized section and content) DATE CREATED AUTHOR 05/18/2022 [facility] DATE CREATED AUTHOR AUTHOR'S ORGANIZ ATION 01/01/2023 [facility] DATE CREATED AUTHOR AUTHOR'S ORGANIZ ATION 08/21/[address] [facility] FOR RECORDS PERTAINING TO PATIENTS WHO ARE OR HAVE BEEN ENROLLED IN A CHEMICAL DEPENDENCY/SUBSTANCEABUSE PROGRAM, SOME INFORMATION MAY BE OMITTED. This clinical summary was aggregated from multiple sources. Caution should be exercised in using it in the provision of clinical care. This summary normalizes information from multiple sources, and as a consequence, information in this document may materially change the coding, format and clinical context of patient data. In addition, data may be omitted in some cases. CLINICAL DECISIONS SHOULD BE BASED ON THE PRIMARY CLINICAL RECORDS. [employer] provides no warranty or guarantee of the accuracy or completeness of information in this document.
== END 2023-10-14 10:53 | disposition home or self-care (01) ==
LOC: NOMS 10:53
PROVIDERS: PCP Family Medicine; Visit Provider Obstetrics & Gynecology
DX: R10.2 Pelvic and perineal pain (principal)
CPT/HCPCS: 76830; 76856

== ENCOUNTER 2023-12-18 09:06 | Emergency (ER) | payer OTHER, SELFPAY ==
[2023-12-18 09:09] VITALS: BP 144/99; PULSE 98; TEMP 36.7; O2SAT 99; BMI 54.8
--- NOTE | 2023-12-18 10:18 | ED_ITS ---
HPI - Abdominal Pain General Chief Complaint: Abdominal Pain Stated Complaint: abdominal pain/nausea Time Seen by Provider: 12/18/23 10:11 Source: patient Mode of arrival: walk-in Limitations: no limitations History of Present Illness HPI narrative: Patient here complaining of abdominal pain and diarrhea. Symptoms have been going on for several days. Her has similar symptoms. She has had extreme nausea but no vomiting. She has not had any history of C. difficile. She has not had travel history. She is not on any antibiotics. Is not running a fever. She said many many years ago she had a colonoscopy it was essentially normal. She has no history of inflammatory bowel disease. The pain is bilateral as well as upper and lower. She has not noticed any blood in the stool. She has not had past surgical history. She does not have discomfort in the right lower quadrant. There is no other symptoms today. Related Data Home Medications ?Medication ?Instructions ?Recorded ?Confirmed albuterol sulfate 90 mcg/actuation 2 inh inhalation Q6H PRN shortness 03/27/23 12/18/23 aerosol inhaler (Ventolin HFA) of breath or wheezing lfrulxpves-gwpkslpwmrnrm-lgubzomp 1 cap PO Q4H PRN pain 03/27/23 12/18/23 50 mg-300 mg-40 mg capsule doxepin 10 mg capsule 10 mg PO Q8H 12/18/23 12/18/23 hyoscyamine sulfate 0.125 mg 0.125 mg sublingual Q6H 12/18/23 12/18/23 sublingual tablet promethazine 25 mg tablet 25 mg PO Q6H 12/18/23 12/18/23 Allergies Allergy/AdvReac Type Severity Reaction Status Date / Time meloxicam Allergy Headache Verified 04/27/23 08:10 hydromorphone [From Dilaudid] AdvReac Mild Nausea Verified 04/27/23 08:10 norco AdvReac Mild Nausea Uncoded 04/27/23 08:10 [facility] (Updated 12/18/23 @ 11:25 by Rigoberto Alarcon MD) Migraine ?G43.909 - Migraine, unspecified, not intractable, without status migrainosus (ICD-10) Sleep apnea ?G47.30 - Sleep apnea, unspecified (ICD-10) Bronchitis ?J40 - Bronchitis, not specified as acute or chronic (ICD-10) Kidney stones ?N20.0 - Calculus of kidney (ICD-10) Postoperative nausea and vomiting ?R11.2 - Nausea with vomiting, unspecified (ICD-10) ?Z98.890 - Other specified postprocedural states (ICD-10) Hernia ?K46.9 - Unspecified abdominal hernia without obstruction or gangrene (ICD- 10) Pelvic pain ?R10.2 - Pelvic and perineal pain (ICD-10) Dyspareunia Dysmenorrhea ?N94.6 - Dysmenorrhea, unspecified (ICD-10) Menorrhagia ?N92.0 - Excessive and frequent menstruation with regular cycle (ICD-10) Surgical History (Updated 03/27/23 @ 13:10 by Deneen Ayala NP) History of section ?Z98.891 - History of uterine scar from previous surgery (ICD-10) History of section ?Z98.891 - History of uterine scar from previous surgery (ICD-10) H/O tubal ligation ?Z98.51 - Tubal ligation status (ICD-10) H/O lithotripsy ?Z98.890 - Other specified postprocedural states (ICD-10) History of endometrial ablation (11/16/21) ?Z98.890 - Other specified postprocedural states (ICD-10) History of cholecystectomy ?Z90.49 - Acquired absence of other specified parts of digestive tract (ICD- 10) History of ankle surgery ?Z98.890 - Other specified postprocedural states (ICD-10) Family History (Updated 03/27/23 @ 13:10 by Deneen Ayala NP) Other Family history of DVT Family history of cancer Family history of heart disease Family history of hypertension Social History (Updated 03/27/23 @ 13:04 by Deneen Ayala NP) Within the past year, how often did you have a drink containing alcohol: monthly or less Smoking status: Never smoker Non-prescribed substance use: denies use 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 She is not appear shocky clammy or diaphoretic. Her mucous membranes are moist and pink. There is no evidence of pallor or anemia or conjunctivitis. Examination of the abdomen shows no guarding rebound rigidity or peritoneal findings. No tenderness at McBurney's point. Menezes sign is negative. Normal auscultation no respiratory distress cough or congestion. Findings. No respiratory distress cough or congestion. Constitutional Vital Signs, click to edit/add: Last Vital Signs Temp 98.1 F 12/18/23 09:09 Pulse 98 H 12/18/23 09:09 Resp 20 12/18/23 09:09 BP 144/99 H 12/18/23 09:09 Pulse Ox 99 12/18/23 09:09 O2 Del Method Room Air 12/18/23 09:09 Course Vital Signs Vital signs: Vital Signs Temperature 98.1 F 12/18/23 09:09 Pulse Rate 98 H 12/18/23 09:09 Respiratory Rate 20 12/18/23 09:09 Blood Pressure 144/99 H 12/18/23 09:09 Pulse Oximetry 99 12/18/23 09:09 Oxygen Delivery Method Room Air 12/18/23 09:09 Temperature 98.1 F 12/18/23 09:09 Pulse Rate 98 H 12/18/23 09:09 Respiratory Rate 20 12/18/23 09:09 Blood Pressure 144/99 H 12/18/23 09:09 Pulse Oximetry 99 12/18/23 09:09 Oxygen Delivery Method Room Air 12/18/23 09:09 MDM - Abdominal Pain MDM Narrative Medical decision making narrative: Patient was here for several hours and was not able to produce any stool specimen. It was explained to her that would be the most diagnostic important modality. She was given some IV fluids. She was not given any medications for diarrhea. She will be given a note to return here. Not surprisingly her potassium is decreased and we will supplement her. She is to continue to take plenty of fluids and supplemental potassium. She is to return a stool specimen here as quickly as possible. She did not have risk factors for C. difficile but we will be sure to rule that out and treated as needed Discharge Plan Discharge Stand Alone Forms: Portal Instructions Chief Complaint: Abdominal Pain Clinical Impression: Disorder of electrolytes Patient Disposition: Home, Self-Care Time of Disposition Decision: 11:25 Prescriptions / Home Meds: No Action hyoscyamine sulfate 0.125 mg tablet, sublingual 0.125 mg sublingual Q6H promethazine 25 mg tablet 25 mg PO Q6H doxepin 10 mg capsule 10 mg PO Q8H albuterol sulfate [Ventolin HFA] 90 mcg/actuation HFA aerosol inhaler 2 inh INHALATION Q6H PRN (Reason: shortness of breath or wheezing) ekudzuaiet-ejgnlpaadhedn-glwo 50-300-40 mg capsule 1 cap PO Q4H PRN (Reason: pain) Print Language: Argentine Additional Instructions: Return stool specimen SELMA for analysis so that appropriate treatment can be initiated/clear fluids/potassium supplements Referrals: Rojelio Donato MD [Primary Care Provider] - 1 week
[2023-12-18] MEDS: 0.9 % SODIUM CHLORIDE 1,000 ML 999 ML IV (10:31)
[2023-12-18 10:37] LABS: Basophils Percent Auto 0.1 % (0.2-2.0); Eosinophils Percent Auto 0.5 % (0.9-7.0); Hematocrit 41.8 % (36.0-48.0); Hemoglobin 13.7 g/dL (12.0-16.0); Immature Granulocytes Abs Auto 0.02 10^3/uL (0.00-0.03); Immature Granulocytes Pct Auto 0.3 % (0.0-0.5); Lymphocytes Absolute Auto 2.1 10^3/uL (1.2-3.8); Mean Corpuscular HGB Conc 32.8 g/dL (29.9-35.2); Mean Corpuscular Hemoglobin 30.2 pg (26.7-34.0); Mean Corpuscular Volume 92.3 fL (81.0-99.0); Mean Platelet Volume 9.6 fL (9.5-13.5); Monocytes Absolute Auto 0.4 10^3/uL (0.3-0.8); Monocytes Percent Auto 5.2 % (1.7-12.0); Neutrophils Percent Auto 65.9 % (43.0-75.0); Platelet Count 240 10^3/uL (150-450); Red Blood Count 4.53 10^6/uL (4.20-5.40); Red Cell Distribution Width 12.7 % (11.0-15.0); White Blood Count 7.6 10^3/uL (4.0-11.0)
[2023-12-18 11:07] LABS: Alanine Aminotransferase 56 U/L (14-59); Albumin Level 3.7 g/dL (3.4-5.0); Alkaline Phosphatase 83 U/L (46-116); Anion Gap 13.2; Aspartate Amino Transferase 31 U/L (15-37); BUN Creatinine Ratio 14.7; Bilirubin Total 0.5 mg/dL (0.2-1.0); Calcium 8.5 mg/dL (8.5-10.1); Carbon Dioxide 22.9 mmol/L (21.0-32.0); Chloride 107 mmol/L (98-107); Estimated GFR (African America >60 (>=60); Estimated GFR (Non-African Ame >60 (>=60); Globulin 3.7 g/dL; Glucose 95 mg/dL (74-106); Potassium 3.1 mmol/L (3.5-5.1); Sodium 140 mmol/L (136-145); Total Protein 7.4 g/dL (6.4-8.2)
[2023-12-18 11:21] LABS: Bilirubin Urine NEGATIVE (NEGATIVE); Blood Urine MODERATE (NEGATIVE); Clarity Urine SL CLOUDY (CLEAR); Color Urine YELLOW (YELLOW); Glucose Urine UA NEGATIVE (NEGATIVE); Ketones Urine TRACE mg/dL (NEGATIVE); Leukocyte Esterase Urine NEGATIVE (NEGATIVE); Nitrite Urine NEGATIVE (NEGATIVE); Protein Urine TRACE mg/dL (NEG/TRACE); Specific Gravity Urine >=1.030 (1.005-1.025); Urobilinogen Urine 0.2 EU/dL (0.2-1.0)
[2023-12-18 11:22] LABS: Urine Microscopic Indicated YES
[2023-12-18] MEDS: POTASSIUM CHLORIDE 10 MEQ ER TABLET 20 MEQ PO (11:34)
[2023-12-18 11:35] LABS: Bacteria Urine MODERATE #/HPF (NONE SEEN); Cast Seen? NONE SEEN #/LPF (NONE SEEN); Crystals Seen? None Seen #/HPF (None Seen); Mucus Urine NONE SEEN (NONE SEEN); Squamous Epithelial Cell Urine MODERATE #/LPF (NONE/RARE); Urine Culture Indicated YES; WBC Urine 0-2 #/HPF (NONE SEEN)
== END 2023-12-18 11:40 | disposition home or self-care (01) ==
PROVIDERS: Emergency Provider Emergency Medicine Emergency Medical Services; PCP Family Medicine
DX: K52.9 Noninfective gastroenteritis and colitis, unspecified (principal); E87.8 Other disorders of electrolyte and fluid balance, not elsewhere classified; Z79.899 Other long term (current) drug therapy; G47.30 Sleep apnea, unspecified; Z87.442 Personal history of urinary calculi; Z98.891 History of uterine scar from previous surgery; Z90.49 Acquired absence of other specified parts of digestive tract; Z98.51 Tubal ligation status
CPT/HCPCS: 36415; 80053; 81001; 85025; 87045; 87086; 87493; 87507; 96360; 99283

== ENCOUNTER 2023-12-18 12:46 | Outpatient (REF) | payer OTHER, SELFPAY ==
[2023-12-18 14:28] LABS: C. Difficile PCR NEGATIVE (NEGATIVE)
== END 2023-12-18 12:47 | disposition home or self-care (01) ==
LOC: LAB 12:46
PROVIDERS: PCP Family Medicine; Visit Provider Family Medicine
DX: K52.9 Noninfective gastroenteritis and colitis, unspecified (principal)
CPT/HCPCS: 87045; 87046; 87427; 87493

== ENCOUNTER 2024-02-03 14:11 | Outpatient (OUT) | payer OTHER, SELFPAY ==
--- NOTE | 2024-02-03 | XR_ITS ---
The [address] [address] Patient Name: ABDIRAHMAN VARGAS MRN: [id number] date: 1995 Sex: F Assigned Patient Location: Current Patient Location: Accession/Order Number: [id number] Exam Date: 02/03/2024 14:13 Report Date: 02/04/2024 07:34 At the request of: NISREEN MERAZ Procedure: XR foot LT min 3V PROCEDURE: XR foot LT min 3V COMPARISON: None. HISTORY: LEFT FOOT PAIN FINDINGS: BONES:No fracture, acute abnormality, or significant arthropathy. SOFT TISSUES:Negative. No visible soft tissue swelling. EFFUSION:None visible. OTHER: Negative. XR/XR foot LT min 3V IMPRESSION: No acute radiographic abnormality Electronically authenticated by: AYAD MALCOLM Date: 02/04/2024 07:34
== END 2024-02-03 14:12 | disposition home or self-care (01) ==
LOC: EC 14:12
PROVIDERS: PCP Family Medicine; Visit Provider Podiatrist Foot & Ankle Surgery
DX: M79.672 Pain in left foot (principal)
CPT/HCPCS: 73630

== ENCOUNTER 2024-02-20 15:52 | Outpatient (RCR) | payer OTHER, SELFPAY | END 2024-04-23 13:43 | disposition home or self-care (01) | LOC: PT 15:52 | PROVIDERS: PCP Family Medicine; Visit Provider Physician Assistant | DX: M72.2 Plantar fascial fibromatosis (principal); M76.62 Achilles tendinitis, left leg; M76.61 Achilles tendinitis, right leg; M24.575 Contracture, left foot; M24.574 Contracture, right foot | CPT/HCPCS: 97014; 97026; 97035; 97110; 97112; 97140; 97162 ==

== ENCOUNTER 2024-03-29 12:43 | Emergency (ER) | payer OTHER, SELFPAY ==
[2024-03-29 12:48] VITALS: BP 160/90; PULSE 93; TEMP 36.8; O2SAT 98; BMI 50.0
--- NOTE | 2024-03-29 13:27 | ED_ITS ---
HPI - Dental/Oral General Chief complaint: Dental/Oral Stated complaint: RIGHT SIDE MOUTH PAIN Time Seen by Provider: 03/29/24 13:10 Source: patient Mode of arrival: walk-in History of Present Illness HPI Narrative: Patient is a 28-year-old female who presents to the emergency department for a 2-day history of pain to the right maxilla. She has multiple dental caries and has an upcoming appointment with her dentist this Friday but reports to the emergency department today for uncontrolled pain with Tylenol and warm compresses. She has no concern for . No facial swelling, fevers or vomiting. Related Data Home Medications ?Medication ?Instructions ?Recorded ?Confirmed albuterol sulfate 90 mcg/actuation 2 inh inhalation Q6H PRN shortness 03/27/23 12/18/23 aerosol inhaler (Ventolin HFA) of breath or wheezing zbpypcdhtg-pqwqlhxqextrl-ovitzewx 1 cap PO Q4H PRN pain 03/27/23 12/18/23 50 mg-300 mg-40 mg capsule doxepin 10 mg capsule 10 mg PO Q8H 12/18/23 12/18/23 hyoscyamine sulfate 0.125 mg 0.125 mg sublingual Q6H 12/18/23 12/18/23 sublingual tablet promethazine 25 mg tablet 25 mg PO Q6H 12/18/23 12/18/23 Previous Rx's ?Medication ?Instructions ?Recorded amoxicillin 500 mg capsule 500 mg PO TID 10 days #30 caps 03/29/24 ketorolac 10 mg tablet 10 mg PO TID PRN pain #10 tabs 03/29/24 Allergies Allergy/AdvReac Type Severity Reaction Status Date / Time meloxicam Allergy Headache Verified 04/27/23 08:10 hydromorphone [From Dilaudid] AdvReac Mild Nausea Verified 04/27/23 08:10 norco AdvReac Mild Nausea Uncoded 04/27/23 08:10 Review of Systems ROS Constitutional Denies: fever or chills Ears, nose, mouth, and throat Denies: throat pain or nasal congestion Respiratory Denies: shortness of breath Gastrointestinal Denies: nausea or vomiting Musculoskeletal Denies: back pain Integumentary/Breast Denies: rash Neurological Denies: headache Hematologic/Lymphatic Denies: easy bruising or easy bleeding [facility] Medical History (Updated 03/29/24 @ 13:26 by MITESH Griffin) Migraine ?G43.909 - Migraine, unspecified, not intractable, without status migrainosus (ICD-10) Sleep apnea ?G47.30 - Sleep apnea, unspecified (ICD-10) Bronchitis ?J40 - Bronchitis, not specified as acute or chronic (ICD-10) Kidney stones ?N20.0 - Calculus of kidney (ICD-10) Postoperative nausea and vomiting ?R11.2 - Nausea with vomiting, unspecified (ICD-10) ?Z98.890 - Other specified postprocedural states (ICD-10) Hernia ?K46.9 - Unspecified abdominal hernia without obstruction or gangrene (ICD- 10) Pelvic pain ?R10.2 - Pelvic and perineal pain (ICD-10) Dyspareunia Dysmenorrhea ?N94.6 - Dysmenorrhea, unspecified (ICD-10) Menorrhagia ?N92.0 - Excessive and frequent menstruation with regular cycle (ICD-10) Surgical History (Updated 03/27/23 @ 13:10 by Deneen Ayala NP) History of section ?Z98.891 - History of uterine scar from previous surgery (ICD-10) History of section ?Z98.891 - History of uterine scar from previous surgery (ICD-10) H/O tubal ligation ?Z98.51 - Tubal ligation status (ICD-10) H/O lithotripsy ?Z98.890 - Other specified postprocedural states (ICD-10) History of endometrial ablation (11/16/21) ?Z98.890 - Other specified postprocedural states (ICD-10) History of cholecystectomy ?Z90.49 - Acquired absence of other specified parts of digestive tract (ICD- 10) History of ankle surgery ?Z98.890 - Other specified postprocedural states (ICD-10) Family History (Updated 03/27/23 @ 13:10 by Deneen Ayala NP) Other Family history of DVT Family history of cancer Family history of heart disease Family history of hypertension Social History Within the past year, how often did you have a drink containing alcohol: monthly or less Smoking status: Never smoker Non-prescribed substance use: denies use 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 Highest level of school completed/degree received: high school graduate Exam Narrative Exam Narrative: Gen.: Awake, alert, in no distress Head: Normocephalic, atraumatic ENT: Moist mucous membranes, multiple dental caries of the mouth, no abscess, no trismus or drooling, no redness or swelling under the tongue, clear speech noted; no facial swelling Respiratory: No respiratory distress Extremities: Moves extremities equally Psych: Normal mood and affect Neuro: No focal neuro deficit Skin: Warm, dry, intact Constitutional Vital Signs, click to edit/add: Last Vital Signs Temp 98.2 F 03/29/24 12:48 Pulse 93 H 03/29/24 12:48 Resp 18 03/29/24 12:48 BP 160/90 H 03/29/24 12:48 Pulse Ox 98 03/29/24 12:48 Course Vital Signs Vital signs: Vital Signs Temperature 98.2 F 03/29/24 12:48 Pulse Rate 93 H 03/29/24 12:48 Respiratory Rate 18 03/29/24 12:48 Blood Pressure 160/90 H 03/29/24 12:48 Pulse Oximetry 98 03/29/24 12:48 Temperature 98.2 F 03/29/24 12:48 Pulse Rate 93 H 03/29/24 12:48 Respiratory Rate 18 03/29/24 12:48 Blood Pressure 160/90 H 03/29/24 12:48 Pulse Oximetry 98 03/29/24 12:48 MDM - Dental/Oral MDM Narrative Medical decision making narrative: Patient treated for dental caries with topical analgesia, antibiotic and NSAID. Her allergy to Mobic is a headache, she was encouraged to follow up with dentistry and return to the ED if symptoms change or worsen I, Dr Lamb, have reviewed the above progress note and course of action in the ER; agree with the above. I have gone over history and physical, and discussed disposition and treatment plan with the patient. Medical Records Attestation: I reviewed the patient's medical records. Discharge Plan Discharge Stand Alone Forms: Portal Instructions Chief Complaint: Dental/Oral Clinical Impression: Toothache, Dental caries Patient Disposition: Home, Self-Care Time of Disposition Decision: 13:26 Condition: Good Prescriptions / Home Meds: New amoxicillin 500 mg capsule 500 mg PO TID 10 Days Qty: 30 0RF ketorolac 10 mg tablet 10 mg PO TID PRN (Reason: pain) Qty: 10 0RF No Action hyoscyamine sulfate 0.125 mg tablet, sublingual 0.125 mg sublingual Q6H promethazine 25 mg tablet 25 mg PO Q6H doxepin 10 mg capsule 10 mg PO Q8H albuterol sulfate [Ventolin HFA] 90 mcg/actuation HFA aerosol inhaler 2 inh INHALATION Q6H PRN (Reason: shortness of breath or wheezing) amwbpkgjbf-zmwjudkcntmpr-mmvm 50-300-40 mg capsule 1 cap PO Q4H PRN (Reason: pain) Print Language: Occitan Instructions: Toothache (ED) Additional Instructions: Follow up dentist as scheduled Referrals: Rojelio Donato MD [Primary Care Provider] - 1 week Discharge Date/Time: 03/29/24 13:33
[2024-03-29] MEDS: BENZOCAINE 30 ML, lidocaine HCL 15 ML MM (13:31)
== END 2024-03-29 13:33 | disposition home or self-care (01) ==
PROVIDERS: Emergency Provider Emergency Medicine; PCP Family Medicine
DX: K02.9 Dental caries, unspecified (principal); K08.89 Other specified disorders of teeth and supporting structures
CPT/HCPCS: 99283

== ENCOUNTER 2024-10-06 16:12 | Emergency (ER) | payer OTHER, SELFPAY ==
[2024-10-06 16:16] VITALS: BP 144/92; PULSE 95; TEMP 36.7; O2SAT 98; BMI 52.9
--- OUTSIDE RECORDS SUMMARY | 2024-10-06 16:26 | XMS_ITS | CCD ---
Author Organization [facility] Care Team Providers [facility] [employer] Engineer Name Role Phone Noah Walton DO Unavailable [phone] DR VALERIE CRAIG Primary Care Unavailable TARA SAN Admitting Unavailable TARA SAN Attending Unavailable TARA SAN Consulting Unavailable SEAMUS ., DR PADILLA Primary Care Unavailable ULYSSES .MIMI Attending Unavailable ULYSSES .MIMI Admitting Unavailable GUY, AMAR Admitting Unavailable GUY AMAR Attending Unavailable SEAMUS ., DR PADILLA Primary Care Unavailable SEAMUS ., DR PADILLA Primary Care Unavailable MARKER ., DR BECERRA Admitting Unavailable MARKER ., DR BECERRA Attending Unavailable GRECHNY ., MITESH RAPHAEL Consulting Unavailabl e MARKER ., DR BECERRA Consulting Unavailable YENI PARNELL Consulting Unavailable GRECALLINY ., MITESH RAPHAEL Consulting Unavailbalwinder e TARA SAN Attending Unavailable TARA SAN Admitting Unavailable SEAMUS ., DR PADILLA Primary Care Unavailable TARA SAN Consulting Unavailable ISH EDGAR Admitting Unavailable ISH EDGAR Attending Unavailable SEAMUS ., DR PADILLA Primary Care Unavailable YUN, DR AYAD Matamoros Consulting Unavailable ISH EDGAR Consulting Unavailable ISABELLE ., DR ESTEBAN Consulting Unavailable SEAMUS ., DR PADILLA Primary Care Unavailable ISABELLE ., DR ESTEBAN Attending Unavailable ISABELLE ., DR ESTEBAN Admitting Unavailable ISH EDGAR Consulting Unavailable SEAMUS ., DR PADILLA Primary Care Unavailable ISH EDGAR Attending Unavailable ISH EDGAR Admitting Unavailable NISREEN DUNNE Consulting Unavailable HOY ., DR PADILLA Consulting Unavailable HOY ., DR PADILLA Primary Care Unavailable HOY ., DR PADILLA Attending Unavailable HOY ., DR PADILLA Admitting Unavailable WEST, DR AYAD Matamoros Consulting Unavailable ISABELLE ., DR ESTEBAN Admitting Unavailable ISABELLE ., DR ESTEBAN Attending Unavailable HOY ., DR PADILLA Primary Care Unavailable ISABELLE ., DR ESTEBAN Consulting Unavailable AYAD BIGGS Consulting Unavailable TALA, ISH Admitting Unavailable TALA, ISH Attending Unavailable HOY ., DR PADILLA Primary Care Unavailable WEST, DR AYAD Matamoros Consulting Unavailable TALA, ISH Consulting Unavailable CHARUNATALIE BERRY Consulting Unavailable MERLE ., VIN Attending Unavailable [...] SAN Attending Unavailable TARA SAN Admitting Unavailable HOTrevin ., DR PADILLA Primary Care Unavailable Ish Hector Consulting Unavailable Jolene Burdick Consulting Unavailable KERA COONEY Attending Unavailable KERA COONEY Attending Unavailable Carmen Coello Attending Unavailable Valerie Donato MD Primary Care Provider [phone] NOAH WALTON Attending Unavailable Allergies Allergy Classification Reported Allergen(s) Allergy Type Date of Onset Reaction(s) Facility (2 sources) meloxicam Drug Allergy 2 Other: See Comments [facility] (2 sources) Acetaminophen / HYDROcodone; Translations: [[place]] Drug Allergy [facility] (2 sources) HYDROmorphone; Translations: [Dilaudid] Drug Allergy [facility] (1 source) meloxicam Drug Allergy [facility] (3 sources) meloxicam Drug Allergy 3 Headache [facility] Work Phone: Medications Current Medications Medication Drug Class(es) Dates Sig (Normalized) Sig (Original) 168 hr estradiol 0.96494 mg/hr transdermal system (2 sources) Estrogen Start: 09-13-2024 End: 12-12-2024 estradiol (Climara) 0.05 MG/24HR Indications: Sweating abnormality , Status post hysterectomy , Vaginal dryness Place 1 patch over 7 days on the skin 1 (one) time per week 12 patch 3 09/13/2024 12/12/2024 Active phentermine hydrochloride 37.5 mg oral tablet (4 sources) Sympathomimetic Amine Anorectic Start: 08-13-2024 take 1 tablet by mouth before mealtime phentermine (Adipex-P) 37.5 MG tablet Take 37.5 mg by mouth in the morning. Take before meals. 08/13/2024 Active Start: 04-18-2022 take 1 capsule by mo ut once daily Phentermine HCl 37.5 mg capsule Take 37.5 mg by mouth once daily. 0 04/18/2022 Active Comment on above: Take 37.5 mg by mout h once daily. Completed/Discontinued Medications Medication Drug Class(es) Dates Sig (Normalized) Sig (Original) acetaminophen 325 mg / butalbital 50 mg / caffeine 40 mg oral capsule (5 sources) Barbiturate, Central Nervous System Stimulant, Methylxanthine Start: 03-19-2022 acetaminophen 325 mg-caffeine 40 mg-butalbital 50 mg (FIORICET) per capsule as needed. 0 03/19/2022 Active take 1 capsule by mo uth every four hours as needed for headache Fioricet 50-300-40 MG capsule Take 1 capsule by mouth every 4 (four) hours if needed for headaches. Active Comment on above: as needed. acetaminophen 300 mg / codeine phosphate 30 mg oral tablet (2 sources) Opioid Agonist Start: take 1 tablet by mouth every six hours as needed acetaminophen-codeine (TYLENOL-COD #3) 300-30 mg per tablet Take 1 tablet by mouth every 6 hours as needed. 0 04/22/2022 Active Comment on above: Take 1 tablet by viri every 6 hours as needed. [id number] 200 actuat albuterol 0.09 mg/actuat metered dose inhaler (3 sources) beta2-Adrenergic Agonist Start: End: take 2 puff(s) by inhalation every six hours Ventolin HFA 108 (90 Base) MCG/ACT inhaler Inhale 2 puffs every 6 (six) hours if needed. 12/30/2022 09/13/2024 Discontinued cyclobenzaprine hydrochloride 10 mg oral tablet (3 sources) Muscle Relaxant Start: End: take 1 tablet by mouth three times daily as needed for muscle spasms cyclobenzaprine (Flexeril) 10 MG tablet TAKE 1 TABLET BY MOUTH THREE TIMES DAILY NEEDED FOR MUSCLE SPASMS MUST LAST 30 DAYS 02/19/2023 09/13/2024 Discontinued FLUoxetine 10 mg oral capsule (2 sources) Serotonin Reuptake Inhibitor take 1 capsule by mouth once daily FLUoxetine (PROZAC) 10 mg capsule Take 10 mg by mouth once daily. 0 Active Comment on above: Take 10 mg by mouth once daily. naratriptan 2.5 mg oral tablet (2 sources) Serotonin-1b and Serotonin-1d Receptor Agonist Start: take 1 tablet by mouth once daily naratriptan (AMERGE) 2.5 mg tablet Take 2.5 mg by mouth once daily. 0 04/21/2022 Active Comment on above: Take 2.5 mg by mouth once daily. 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] Onset: 11-13-2022 Chronic Other female genital disorders (2 sources) Vaginal dryness; Translations: [Other specified noninflammatory disorders of vagina] 09-13-2024 Episodic Other nervous system disorders (1 source) Other [...] MALIG NEOPLASM CERV] Onset: 12-17-2022 Episodic Other skin disorders (2 sources) Disorder of sweat gland; Translations: [Eccrine sweat disorder, unspecified] 01-06-2025 Episodic Other upper respiratory infections (5 sources) [...] Test Name Value Interpretation Reference Range Facility Patient Letter FTon 2023 Patient Letter [facility] January 06, 2024 CONNIE SALCIDO [address] [place] [address] : 1995 Dear Connie, You missed your scheduled appointment on: 01/06/2024. Please note our appointment slots fill quickly. When you fail to cancel or reschedule an appointment the office is unable to fill the appointment slot that was reserved for you. In the future, we ask that you call 24 hours in advance to cancel your appointment. Our current reminder system gives you the opportunity to cancel by responding to our reminder text, phone call or email. You can also call the office to reschedule during normal business hours or use our on-line scheduling portal at your convenience. Our goal is to provide convenient and quality care to all of our patients. We appreciate your consideration regarding any future cancellations. Sincerely, [facility] [address], [place] [address] Normal [facility] ED Note-Physicianon 08-20-20 ED Note-Physician [id number] 03 [id number]. 00TIFF [facility] Screenson 08-20-2023 Screens [id number] 0TIFF [facility] Ambulatory Visit Summaryon 1 10-20-2022 Ambulatory Visit Summary ALICIACONNIE :1995 Visit Date:08/19/2023 Ambulatory Visit Instructions Your Diagnosis Kidney stones Asymptomatic microscopic hematuria Mixed incontinence OAB (overactive bladder) Tests Performed Urnls Dip Stick Auto w/o Microscopy POC 24081 Your Care Team Attending Physician - Oumou LI, ADÁN, Carmen Hutchinson Primary Care Physician - Valerie [...] KERA COONEY PA-C Where: [facility] Patient Educationon 08-19-20 Patient Education Obstetrics and Gynecology Overactive Bladder, [...] health care provider. General instructions ? Take sbub-wvn-etyuohi and prescription medicines only as told by [...] monitor yo (more content not included)... Normal [facility] Urology Office/Clinic Noteon 08-19-2023 Urology Office/Clinic Note Chief Complaint 1yr HPI Staff PRW pt 1yr KUB *pt did not get KUB done. Was not aware one was ordered. However did get CT done @ [facility] ER 08/14/23 DX: Microscopic Hematuria, Hx of Kidney Stones, Nocturia, Stress Incontinence & Frequency Last Stone Procedure 01/25/21 ([facility]) Denies flank pain. Has been lower abdominal discomfort for the past week. Did go to [facility] ER 08/14/23. frequency during the day, [...] trial solifenacin 5 mg QD, sent to [facility] discussed SEs, patient to stop medication [...] that she is aware of. Seen at [facility] ER for RLQ abdominal discomfort 08/14/23 [...] day(s), # 90 tab(s), Refills(s) 0, Pharmacy: [id number], 154, cm, 08/19/23 15:05:00 EST, Height/Length Dosing, 129.5, kg, 08/19/23 15:05:00 EST, Weight Dosing Follow-up No qualifying data available Patient Education Kidney Stones, Oibo-kp-Mshq Hematuria, Adult Overactive Bladder, Adult Problem List/Past [...] Oral, Daily Allergies Dilaudid (Nausea and vomiting) [place] (Nausea and vomiting) Social History Alcohol - Denies Alcohol Use, 01/19/2021 Substance Abuse Tobacco Never (less than 100 in lifetime) Tobacco Use:. Never Smokeless Tobacco Use:. Household tobacco concerns: No. Yes, 08/19/2023 Family History Heart disease: Mother. Kidney stone: Mother. Migraine: Mother. Immunizations Vaccine Date Status influenza virus vaccine, inactivated 06/18/2022 Recorded SARS-CoV-2 (COVID-19) [id number] 06/18/2022 Recorded SARSCoV2 mRNA(fsxgvvxtp-mzxg-ay cros) vac 12/03/2021 Recorded SARSCoV2 mRNA(ecxjriyka-vkkn-nd cros) vac 10/25/2021 R (more content not included)... Normal [facility] Comment on above: Result Comment: Elec tronically Signed By: ADÁN Coello APRN, Carmen Hutchinson\.br\Date and Time Signed: 08/19/23 16:30 EST PAP ACOG PANEL 2: 21 to 29on 12-24-2022 . . Normal [facility] Comment on above: Performed By: #### L ACT #### [facility] [address] [address] [address] Tho Hardy Age Gdln ACOG Testing 21-29 [facility] Comment on above: Performed By: #### L ACT #### [facility] [address] [address] [address] Tho Hardy DIAGNOSIS: Comment [facility] Comment on above: Result Comment: NEGA TIVE FOR INTRAEPITHELIAL LESION OR MALIGNANCY. Performed By: #### L ACT #### [facility] [address] [place] [address] Dr. Tho Hardy Methodology: Comment [facility] Comment on above: Result Comment: This liquid based ThinPrep(R) pap test was screened with the use of an image guided system. Performed By: #### L ACT #### [facility] [address] [address] [address] Tho Hardy Note: Comment [facility] Comment on above: Result Comment: The Pap smear is a screening test designed to aid in the detection of premalignant and malignant conditions of the uterine cervix. It is not a diagnostic procedure and should not be used as the sole means of detecting cervical cancer. Both false-positive and false-negative reports do occur. . Performed By: #### L ACT #### [facility] [address] [address] [address] Tho Hardy Performed by: Comment [facility] Comment on above: Result Comment: Julieta Choudhary, Electric Utility Lineworker (ASCP) Performed By: #### L ACT #### [facility] [address] [place] [address] Dr. Tho Hardy Reflex Criteria: Comment Normal [facility] Comment on above: Result Comment: The HPV DNA reflex criteria were not met with this specimen result therefore, no HPV testing was performed. . Performed By: #### L ACT #### [facility] [address] [place], [place] [address] Dr. Tho Hardy Specimen adequacy: Comment Normal [facility] Comment on above: Result Comment: Sati sfactory for evaluation. Endocervical and/or squamous metaplastic cells (endocervical component) are present. Performed By: #### L ACT #### [facility] [address] [place], [place] [address] Dr. Tho Hardy XR RIBS LT PA [...] AYAD MALCOLM Date: 2022-11-14 07:04 Normal [facility] XR ANKLE LT MIN 3 Von 2022 XR ANKLE LT MIN 3 V EXAM: XR ANKLE LT NV N 3 V HISTORY: Pain of left [...] NISREEN DUNNE Date: 2022 15:34 Normal [facility] CBC AUTO DIFFon 10-14-2022 BASO # 0.0 103/ul Normal 0.0-0.1 [facility] Comment on above: Performed By: #### C BC #### [facility] [address] [place] [address] Dr. hTo Hardy Basophils/100 WBC (Bld) 0.3 % Normal 0.2-2.0 [facility] Comment on above: Performed By: #### C BC #### [facility] [address] [place] [address] Dr. Tho Hardy EO # 0.1 103/ul Normal 0.0-0.7 [facility] Comment on above: Performed By: #### C BC #### [facility] [address] [place] [address] Dr. Tho Hardy Eosinophils/100 WBC (Bld) 1.5 % Normal 0.9-7.0 [facility] Comment on above: Performed By: #### C BC #### [facility] [address] [place] [address] Dr. Tho Hardy Erythrocyte distribution width (RBC) [Ratio] 12.7 % Normal 11.0-15.0 [facility] Comment on above: Performed By: #### C BC #### [facility] [address] [place] [address] Dr. Tho Hardy Hematocrit (Bld) [Volume fraction] 44.9 % Normal 36.0-48.0 [facility] Comment on above: Performed By: #### C BC #### [facility] [address] [place] [address] Dr. Tho Hardy Hemoglobin (Bld) [Mass/Vol] 14.3 g/dL Normal 12.0-16.0 [facility] Comment on above: Performed By: #### C BC #### [facility] [address] [place] [address] Dr. Tho Hardy IG # 0.02 10e3/ul Normal 0.00-0.03 [facility] Comment on above: Performed By: #### C BC #### [facility] [address] [place] [address] Dr. Tho Hardy IG % 0.3 % Normal 0.0-0.5 [facility] Comment on above: Performed By: #### C BC #### [facility] [address] [place] [address] Dr. Tho Hardy LYMPH # 1.9 103/ul Normal 1.2-3.8 [facility] Comment on above: Performed By: #### C BC #### [facility] [address] [place] [address] Dr. Tho Hardy Lymphocytes/100 WBC (Bld) 27.7 % Normal 20.5-60.0 [facility] Comment on above: Performed By: #### C BC #### [facility] [address] [place] [address] Dr. Tho Hardy MANUAL DIFF REQ NO Normal [facility] Comment on above: Performed By: #### C BC #### [facility] [address] [place] [address] Dr. Tho Hardy MCH (RBC) [Entitic mass] 30.3 pg Normal 26.7-34.0 [facility] Comment on above: Performed By: #### C BC #### [facility] [address] [place] [address] Dr. Tho Hardy MCHC (RBC) [Mass/Vol] 31.8 g/dL Normal 29.9-35.2 [facility] Comment on above: Performed By: #### C BC #### [facility] [address] [place] [address] Dr. Tho Hardy MCV (RBC) [Entitic vol] 95.1 fL Normal 81.0-99.0 [facility] Comment on above: Performed By: #### C BC #### [facility] [address] [place] [address] Dr. Tho Hardy MONO # 0.5 103/ul Normal 0.3-0.8 [facility] Comment on above: Performed By: #### C BC #### [facility] [address] [place] [address] Dr. Tho Hardy Monocytes/100 WBC (Bld) 7.6 % Normal 1.7-12.0 [facility] Comment on above: Performed By: #### C BC #### [facility] [address] [place] [address] Dr. Tho Hardy NEUT # 4.2 103/ul Normal 1.4-6.5 [facility] Comment on above: Performed By: #### C BC #### [facility] [address] [place] [address] Dr. Tho Hardy Neutrophils/100 WBC (Bld) 62.6 % Normal 43.0-75.0 [facility] Comment on above: Performed By: #### C BC #### [facility] [address] [place] [address] Dr. Tho Hardy Platelet mean volume (Bld) [Entitic vol] 10.0 fL Normal 9.5-13.5 [facility] Comment on above: Performed By: #### C BC #### [facility] [address] [place] [address] Dr. Tho Hardy PLT 242 103/ul Normal 150-450 [facility] Comment on above: Performed By: #### C BC #### [facility] [address] [place] [address] Dr. Tho Hardy RBC 4.72 106/ul Normal 4.20-5.40 [facility] Comment on above: Performed By: #### C BC #### [facility] [address] [place] [address] Dr. Tho Hardy WBC 6.7 103/ul Normal 4.0-11.0 [facility] Comment on above: Performed By: #### C BC #### [facility] [address] [place] [address] Dr. Tho Hardy ER URINE PROFILEon 3 Bilirubin Ql (U) Negative Normal NEGATIVE [facility] Comment on above: Performed By: #### L ACT #### [facility] [address] [place] [address] Dr. Tho Hardy Clarity (U) CLEAR Normal CLEAR [facility] Comment on above: Performed By: #### L ACT #### [facility] [address] [place] [address] Dr. Tho Hardy Color (U) YELLOW Normal YELLOW [facility] Comment on above: Performed By: #### L ACT #### [facility] [address] [place] [address] Dr. Tho RIVERA A micrscopic examination will be performed if indicated. Normal [facility] Comment on above: Performed By: #### L ACT #### [facility] [address] [address] [address] Tho Hardy Glucose Ql (U) Negative Normal NEGATIVE [facility] Comment on above: Performed By: #### L ACT #### [facility] [address] [place] [address] Dr. Tho Hardy Hemoglobin Ql (U) MODERATE Abnormal NEGATIVE [facility] Comment on above: Performed By: #### L ACT #### [facility] [address] [place] [address] Dr. Tho Hardy Ketones Ql (U) Negative Normal NEGATIVE [facility] Comment on above: Performed By: #### L ACT #### [facility] [address] [place] [address] Dr. Tho Hardy LEUKOCYTES Negative Normal NEGATIVE [facility] Comment on above: Performed By: #### L ACT #### [facility] [address] [place] [address] Dr. Tho Hardy Nitrite Ql (U) Negative Normal NEGATIVE [facility] Comment on above: Performed By: #### L ACT #### [facility] [address] [place] [address] Dr. Tho Hardy pH (U) 5.5 [pH] Normal 5-9 [facility] Comment on above: Performed By: #### L ACT #### [facility] [address] [place] [address] Dr. Tho Hardy SPEC GRAVITY >=1.030 Abnormal 1.005-<=1.025 [facility] Comment on above: Performed By: #### L ACT #### [facility] [address] [place] [address] Dr. Tho Hardy UA PROTEIN Negative Normal NEGATIVE/ TRACE [facility] Comment on above: Performed By: #### L ACT #### [facility] [address] [place] [address] Dr. Tho Hardy UR MICRO IND INDICATED Normal [facility] Comment on above: Performed By: #### L ACT #### [facility] [address] [address] [address] Tho Hardy Urobilinogen Qn (U) 0.2 {Roland'U}/dL Normal 0.2 - 1. 0 [facility] Comment on above: Performed By: #### L ACT #### [facility] [address] [address] [address] Tho Hardy URon 10-14-2022 , QUAL Negative Normal NEGATIVE [facility] Comment on above: Performed By: #### L ACT #### [facility] [address] [place] [address] Dr. Tho Hardy PROF CHEM 8 (BAS METB)on Anion gap [Moles/Vol] 12.8 mmol/L Normal [facility] Comment on above: Performed By: #### B MP #### [facility] [address] [place] [address] Dr. Tho Hardy Calcium [Mass/Vol] 8.7 mg/dL Normal 8.5-10.1 [facility] Comment on above: Performed By: #### B MP #### [facility] [address] [place] [address] Dr. Tho Hardy Chloride [Moles/Vol] 104 mmol/L Normal 98-107 [facility] Comment on above: Performed By: #### B MP #### [facility] [address] [place] [address] Dr. Tho Hardy CO2 [Moles/Vol] 28.4 mmol/L Normal 21.0-32.0 [facility] Comment on above: Performed By: #### B MP #### [facility] [address] [place] [address] Dr. Tho Hardy Creatinine [Mass/Vol] 0.65 mg/dL Normal 0.55-1.02 [facility] Comment on above: Performed By: #### B MP #### [facility] [address] [address] [address] Tho Hardy EGFR-AF MOROCCAN >60 Normal >=60 [facility] Comment on above: Performed By: #### B MP #### [facility] [address] [address] [address] Tho Hardy EGFR-NON AF MOROCCAN >60 Normal >=60 [facility] Comment on above: Performed By: #### B MP #### [facility] [address] [address] [address] Tho Hardy Glucose [Mass/Vol] 86 mg/dL Normal 74-106 [facility] Comment on above: Performed By: #### B MP #### [facility] [address] [place] [address] Dr. Tho Hardy Potassium [Moles/Vol] 3.2 mmol/L Critically low 3.5-5.1 [facility] Comment on above: Performed By: #### B MP #### [facility] [address] [address] [address] Tho Hardy Sodium [Moles/Vol] 142 mmol/L Normal 136-145 [facility] Comment on above: Performed By: #### B MP #### [facility] [address] [address] [address] Tho Hardy Urea nitrogen [Mass/Vol] 11.0 mg/dL Normal 7.0-18.0 [facility] Comment on above: Performed By: #### B MP #### [facility] [address] [place] [address] Dr. Tho Hardy Urea nitrogen/Creatinine [Mass ratio] 16.9 mg/mg Normal [facility] Comment on above: Performed By: #### B MP #### [facility] [address] [address] [address] Tho Hardy URINE MICROSCOPIC ONLYon BACTERIA TRACE Abnormal NONE SEEN [facility] Comment on above: Performed By: #### L ACT #### [facility] [address] [place] [address] Dr. Tho Hardy Bacteria identified Cx Nom (U) NOT INDICATED Normal [facility] Comment on above: Performed By: #### L ACT #### [facility] [address] [place] [address] Dr. Tho Hardy CAST NONE SEEN Normal NONE SEEN [facility] Comment on above: Performed By: #### L ACT #### [facility] [address] [place] [address] Dr. Tho Hardy Crystals LM Nom (Urine sed) NONE SEEN Normal NONE SEEN [facility] Comment on above: Performed By: #### L ACT #### [facility] [address] [place] [address] Dr. Tho Hardy Epithelial cells LM Ql (Urine sed) FEW Abnormal NONE SEEN /RARE [facility] Comment on above: Performed By: #### L ACT #### [facility] [address] [place] [address] Dr. Tho Hardy MUCOUS NONE SEEN Normal NONE SEEN [facility] Comment on above: Performed By: #### L ACT #### [facility] [address] [place] [address] Dr. Tho Hardy RBC 0-2 Normal 0-2 [facility] Comment on above: Performed By: #### L ACT #### [facility] [address] [place] [address] Dr. Tho Hardy WBC NONE SEEN Normal NONE SEEN [facility] Comment on above: Performed By: #### L ACT #### [facility] [address] [place] [address] Dr. Tho Hardy CBC AUTO DIFFon 09-26-2022 BASO # 0.0 103/ul Normal 0.0-0.1 [facility] Comment on above: Performed By: #### L ACT #### [facility] [address] [place] [address] Dr. Tho Hardy Basophils/100 WBC (Bld) 0.1 % Critically low 0.2-2.0 [facility] Comment on above: Performed By: #### L ACT #### [facility] [address] [place] [address] Dr. Tho Hardy EO # 0.2 103/ul Normal 0.0-0.7 [facility] Comment on above: Performed By: #### L ACT #### [facility] [address] [place] [address] Dr. Toh Hardy Eosinophils/100 WBC (Bld) 2.3 % Normal 0.9-7.0 [facility] Comment on above: Performed By: #### L ACT #### [facility] [address] [place] [address] Dr. Tho Hardy Erythrocyte distribution width (RBC) [Ratio] 12.7 % Normal 11.0-15.0 [facility] Comment on above: Performed By: #### L ACT #### [facility] [address] [place] [address] Dr. Tho Hardy Hematocrit (Bld) [Volume fraction] 43.4 % Normal 36.0-48.0 [facility] Comment on above: Performed By: #### L ACT #### [facility] [address] [place] [address] Dr. Tho aHrdy Hemoglobin (Bld) [Mass/Vol] 14.6 g/dL Normal 12.0-16.0 [facility] Comment on above: Performed By: #### L ACT #### [facility] [address] [place] [address] Dr. Tho Hardy IG # 0.02 10e3/ul Normal 0.00-0.03 [facility] Comment on above: Performed By: #### L ACT #### [facility] [address] [place] [address] Dr. Tho Hardy IG % 0.2 % Normal 0.0-0.5 [facility] Comment on above: Performed By: #### L ACT #### [facility] [address] [place] [address] Dr. Tho Hardy LYMPH # 1.8 103/ul Normal 1.2-3.8 [facility] Comment on above: Performed By: #### L ACT #### [facility] [address] [place] [address] Dr. Tho Hardy Lymphocytes/100 WBC (Bld) 20.5 % Normal 20.5-60.0 [facility] Comment on above: Performed By: #### L ACT #### [facility] [address] [place] [address] Dr. Tho Hardy MANUAL DIFF REQ NO Normal [facility] Comment on above: Performed By: #### L ACT #### [facility] [address] [place] [address] Dr. Tho Hardy MCH (RBC) [Entitic mass] 30.4 pg Normal 26.7-34.0 [facility] Comment on above: Performed By: #### L ACT #### [facility] [address] [place] [address] Dr. Tho Hardy MCHC (RBC) [Mass/Vol] 33.6 g/dL Normal 29.9-35.2 [facility] Comment on above: Performed By: #### L ACT #### [facility] [address] [place] [address] Dr. Tho Hardy MCV (RBC) [Entitic vol] 90.4 fL Normal 81.0-99.0 [facility] Comment on above: Performed By: #### L ACT #### [facility] [address] [place] [address] Dr. Tho Hardy MONO # 0.5 103/ul Normal 0.3-0.8 [facility] Comment on above: Performed By: #### L ACT #### [facility] [address] [place] [address] Dr. Tho Hardy Monocytes/100 WBC (Bld) 5.5 % Normal 1.7-12.0 [facility] Comment on above: Performed By: #### L ACT #### [facility] [address] [place] [address] Dr. Tho Hardy NEUT # 6.2 103/ul Normal 1.4-6.5 [facility] Comment on above: Performed By: #### L ACT #### [facility] [address] [place] [address] Dr. Tho Hardy Neutrophils/100 WBC (Bld) 71.4 % Normal 43.0-75.0 [facility] Comment on above: Performed By: #### L ACT #### [facility] [address] [place] [address] Dr. Tho Hardy Platelet mean volume (Bld) [Entitic vol] 9.5 fL Normal 9.5-13.5 [facility] Comment on above: Performed By: #### L ACT #### [facility] [address] [place] [address] Dr. Tho Hardy PLT 234 103/ul Normal 150-450 [facility] Comment on above: Performed By: #### L ACT #### [facility] [address] [place] [address] Dr. Tho Hardy RBC 4.80 106/ul Normal 4.20-5.40 [facility] Comment on above: Performed By: #### L ACT #### [facility] [address] [place] [address] Dr. Tho Hardy WBC 8.7 103/ul Normal 4.0-11.0 [facility] Comment on above: Performed By: #### L ACT #### [facility] [address] [place] [address] Dr. Tho Hardy ER URINE PROFILEon 3 Bilirubin Ql (U) Negative Normal NEGATIVE [facility] Comment on above: Performed By: #### P REGU, ERUR, UMICRO #### [facility] [address] [place] [address] Dr. Tho Hardy Clarity (U) CLEAR Normal CLEAR [facility] Comment on above: Performed By: #### P REGU, ERUR, UMICRO #### [facility] [address] [place] [address] Dr. Tho Hardy Color (U) YELLOW Normal YELLOW [facility] Comment on above: Performed By: #### P REGU, ERUR, UMICRO #### [facility] [address] [place] [address] Dr. Tho RIVERA A micrscopic examination will be performed if indicated. Normal [facility] Comment on above: Performed By: #### P REGU, ERUR, UMICRO #### [facility] [address] [address] [address] Tho Hardy Glucose Ql (U) Negative Normal NEGATIVE [facility] Comment on above: Performed By: #### P REGU, ERUR, UMICRO #### [facility] [address] [address] [address] Tho Hardy Hemoglobin Ql (U) SMALL Abnormal NEGATIVE [facility] Comment on above: Performed By: #### P REGU, ERUR, UMICRO #### [facility] [address] [address] [address] Tho Hardy Ketones Ql (U) Negative Normal NEGATIVE [facility] Comment on above: Performed By: #### P REGU, ERUR, UMICRO #### [facility] [address] [address] [address] Tho Hardy LEUKOCYTES Negative Normal NEGATIVE [facility] Comment on above: Performed By: #### P REGU, ERUR, UMICRO #### [facility] [address] [address] [address] Tho Hardy Nitrite Ql (U) Negative Normal NEGATIVE [facility] Comment on above: Performed By: #### P REGU, ERUR, UMICRO #### [facility] [address] [address] [address] Tho Hardy pH (U) 5.5 [pH] Normal 5-9 [facility] Comment on above: Performed By: #### P REGU, ERUR, UMICRO #### [facility] [address] [address] [address] Tho Hardy SPEC GRAVITY >=1.030 Abnormal 1.005-<=1.025 [facility] Comment on above: Performed By: #### P REGU, ERUR, UMICRO #### [facility] [address] [address] [address] Tho Hardy UA PROTEIN TRACE Normal NEGATIVE/ TRACE [facility] Comment on above: Performed By: #### P REGU, ERUR, UMICRO #### [facility] [address] [address] [address] Tho Hardy UR MICRO IND INDICATED Normal [facility] Comment on above: Performed By: #### P REGU, ERUR, UMICRO #### [facility] [address] [address] [address] Tho Hardy Urobilinogen Qn (U) 0.2 {Roland'U}/dL Normal 0.2 - 1. 0 [facility] Comment on above: Performed By: #### P REGU, ERUR, UMICRO #### [facility] [address] [address] [address] Tho Hardy GI PANEL (PCR)on 09-26-2022 Adenovirus F 40/41 Not detected Normal NOT DETECTED [facility] Comment on above: Performed By: #### G IPANEL #### [facility] [address] [place] [address] Dr. Tho Hardy Astrovirus Not detected Normal NOT DETECTED [facility] Comment on above: Performed By: #### G IPANEL #### [facility] [address] [address] [address] Tho Hardy C. Diff toxin A/B Not detected Normal NOT DETECTED [facility] Comment on above: Performed By: #### G IPANEL #### [facility] [address] [address] [address] Tho Hardy Campylobacter Not detected Normal NOT DETECTED [facility] Comment on above: Performed By: #### G IPANEL #### [facility] [address] [place] [address] Dr. Tho Hardy Cryptosporidium Not detected Normal NOT DETECTED [facility] Comment on above: Performed By: #### G IPANEL #### [facility] [address] [place] [address] Dr. Tho Hardy Cyclos. Cayetanensis Not detected Normal NOT DETECTED [facility] Comment on above: Performed By: #### G IPANEL #### [facility] [address] [place] [address] Dr. Tho Hardy E. Coli O157 Not Applicable Normal Not Applicable [facility] Comment on above: Performed By: #### G IPANEL #### [facility] [address] [place] [address] Dr. Tho Hardy E. histolytica Not detected Normal NOT DETECTED [facility] Comment on above: Performed By: #### G IPANEL #### [facility] [address] [place] [address] Dr. Tho Hardy EAEC Not detected Normal NOT DETECTED [facility] Comment on above: Performed By: #### G IPANEL #### [facility] [address] [place] [address] Dr. Tho Hardy EIEC Not detected Normal NOT DETECTED [facility] Comment on above: Performed By: #### G IPANEL #### [facility] [address] [place] [address] Dr. Tho Hardy EPEC Not detected Normal NOT DETECTED [facility] Comment on above: Performed By: #### G IPANEL #### [facility] [address] [place] [address] Dr. Tho Hardy ETEC Not detected Normal NOT DETECTED [facility] Comment on above: Performed By: #### G IPANEL #### [facility] [address] [place] [address] Dr. Tho Rodriguez. Lamblia Not detected Normal NOT DETECTED [facility] Comment on above: Performed By: #### G IPANEL #### [facility] [address] [place] [address] Dr. Tho ALBRIGHT CONTROLS PASSED Normal [facility] Comment on above: Performed By: #### G IPANEL #### [facility] [address] [place] [address] Dr. Tho BARCLAY RUBINA HEADER GI PANEL BACTERIA Normal T [facility] Comment on above: Performed By: #### G IPANEL #### [facility] [address] [place] [address] Dr. Tho BARCLAYHD ECOLI GI PANEL DIARRHEAGEN IC E.COLI / SHIGELLA Normal [facility] Comment on above: Performed By: #### G IPANEL #### [facility] [address] [address] [address] Tho MCCONNELL INFO SEE BELOW Normal [facility] Comment on above: Result Comment: EAEC - Enteroaggregative E. Coli EPEC- Enteropathogenic E. Coli ETEC- Enterotoxigenic E. Coli lt/st STEC- Shigella-like toxin-producing E. Coli stx1/stx2 EIEC- Shigella/Enteroinvasive E. Coli Performed By: #### G IPANEL #### [facility] [address] [address] [address] Tho MCCONNELL PARASITES GI PANEL PARASITES Normal [facility] Comment on above: Performed By: #### G IPANEL #### [facility] [address] [address] [address] Tho MCCONNELL VIRUS GI PANEL VIRUSES Normal [facility] Comment on above: Performed By: #### G IPANEL #### [facility] [address] [place] [address] Dr. Tho Hardy Norovirus GI/GII Not detected Normal NOT DETECTED [facility] Comment on above: Performed By: #### G IPANEL #### [facility] [address] [address] [address] Tho Hardy P. Shigelloides Not detected Normal NOT DETECTED [facility] Comment on above: Performed By: #### G IPANEL #### [facility] [address] [address] [address] Tho Hardy Rotavirus A Not detected Normal NOT DETECTED [facility] Comment on above: Performed By: #### G IPANEL #### [facility] [address] [address] [address] Tho Hardy Salmonella Not detected Normal NOT DETECTED [facility] Comment on above: Performed By: #### G IPANEL #### [facility] [address] [place] [address] Dr. Tho Hardy Sapovirus Not detected Normal NOT DETECTED [facility] Comment on above: Performed By: #### G IPANEL #### [facility] [address] [place] [address] Dr. Tho Hardy STEC Not detected Normal NOT DETECTED [facility] Comment on above: Performed By: #### G IPANEL #### [facility] [address] [place] [address] Dr. Tho Hardy Vibrio Not detected Normal NOT DETECTED [facility] Comment on above: Performed By: #### G IPANEL #### [facility] [address] [address] [address] Tho Hardy Vibrio Cholera Not detected Normal NOT DETECTED [facility] Comment on above: Performed By: #### G IPANEL #### [facility] [address] [place] [address] Dr. Tho Hardy Y. Enterocolitica Not detected Normal NOT DETECTED [facility] Comment on above: Performed By: #### G IPANEL #### [facility] [address] [place] [address] Dr. Tho Hardy URon 09-26-2022 , QUAL Negative Normal NEGATIVE [facility] Comment on above: Performed By: #### P REGU, ERUR, UMICRO #### [facility] [address] [place] [address] Dr. Tho Hardy PROF CHEM 8 (BAS METB)on Anion gap [Moles/Vol] 15.6 mmol/L Normal [facility] Comment on above: Performed By: #### B MP #### [facility] [address] [place] [address] Dr. Tho Hardy Calcium [Mass/Vol] 9.0 mg/dL Normal 8.5-10.1 [facility] Comment on above: Performed By: #### B MP #### [facility] [address] [place] [address] Dr. Tho Hardy Chloride [Moles/Vol] 104 mmol/L Normal 98-107 [facility] Comment on above: Performed By: #### B MP #### [facility] [address] [place] [address] Dr. Tho Hardy CO2 [Moles/Vol] 24.0 mmol/L Normal 21.0-32.0 [facility] Comment on above: Performed By: #### B MP #### [facility] [address] [address] [address] Tho Hardy Creatinine [Mass/Vol] 0.73 mg/dL Normal 0.55-1.02 [facility] Comment on above: Performed By: #### B MP #### [facility] [address] [address] [address] Tho Hardy EGFR-AF MOROCCAN >60 Normal >=60 [facility] Comment on above: Performed By: #### B MP #### [facility] [address] [address] [address] Tho Hardy EGFR-NON AF MOROCCAN >60 Normal >=60 [facility] Comment on above: Performed By: #### B MP #### [facility] [address] [address] [address] Tho Hardy Glucose [Mass/Vol] 85 mg/dL Normal 74-106 [facility] Comment on above: Performed By: #### B MP #### [facility] [address] [address] [address] Tho Hardy Potassium [Moles/Vol] 3.6 mmol/L Normal 3.5-5.1 [facility] Comment on above: Performed By: #### B MP #### [facility] [address] [address] [address] Tho Hardy Sodium [Moles/Vol] 140 mmol/L Normal 136-145 [facility] Comment on above: Performed By: #### B MP #### [facility] [address] [place] [address] Dr. Tho Hardy Urea nitrogen [Mass/Vol] 12.0 mg/dL Normal 7.0-18.0 [facility] Comment on above: Performed By: #### B MP #### [facility] [address] [address] [address] Tho Hardy Urea nitrogen/Creatinine [Mass ratio] 16.4 mg/mg Normal [facility] Comment on above: Performed By: #### B MP #### [facility] [address] [address] [address] Tho Hardy URINE MICROSCOPIC ONLYon BACTERIA TRACE Abnormal NONE SEEN [facility] Comment on above: Performed By: #### P REGU, ERUR, UMICRO #### [facility] [address] [address] [address] Tho Hardy Bacteria identified Cx Nom (U) NOT INDICATED Normal [facility] Comment on above: Performed By: #### P REGU, ERUR, UMICRO #### [facility] [address] [address] [address] Tho Hardy CAST NONE SEEN Normal NONE SEEN [facility] Comment on above: Performed By: #### P REGU, ERUR, UMICRO #### [facility] [address] [place] [address] Dr. Tho Hardy Crystals LM Nom (Urine sed) NONE SEEN Normal NONE SEEN [facility] Comment on above: Performed By: #### P REGU, ERUR, UMICRO #### [facility] [address] [address] [address] Tho Hardy Epithelial cells LM Ql (Urine sed) MANY Abnormal NONE SEEN /RARE [facility] Comment on above: Performed By: #### P REGU, ERUR, UMICRO #### [facility] [address] [address] [address] Tho Hardy MUCOUS NONE SEEN Normal NONE SEEN [facility] Comment on above: Performed By: #### P REGU, ERUR, UMICRO #### [facility] [address] [address] [address] Tho Hardy RBC 2-5 Abnormal 0-2 [facility] Comment on above: Performed By: #### P REGU, ERUR, UMICRO #### [facility] [address] [address] [address] Tho Hardy WBC NONE SEEN Normal NONE SEEN [facility] Comment on above: Performed By: #### P REGU, ERUR, UMICRO #### [facility] [address] [place] [address] Dr. Tho Hardy AMYLASEon 2 Amylase [Catalytic activity/Vol] 27 U/L Normal 25-115 [facility] Comment on above: Performed By: #### P REGU, KRISTIANR, UMICRO #### [facility] [address] [place] [address] Dr. Tho Hardy CARDIAC JEAN 3-6on 2 CK [Catalytic activity/Vol] 53 U/L Normal 26-192 [facility] Comment on above: Performed By: #### C MREP #### [facility] [address] [place] [address] Dr. Tho Hardy CK.MB [Mass/Vol] 0.79 ng/mL Normal <=3.60 [facility] Comment on above: Performed By: #### C MREP #### [facility] [address] [place] [address] Dr. Tho Hardy HSTROP 4.6 pg/mL Normal 4.0-51.3 [facility] Comment on above: Result Comment: CUT- OFF POINTS HAVE BEEN ESTABLISHED BASED ON THE FOURTH UNIVERSAL DEFINITIONS OF MYOCARDIAL INFARCTION. THE UPPER REFERENCE LIMIT (URL) OF TROPONIN, DEFINED THE 99TH PERCENTILE OF cTnI DISTRIBUTION IN A REFERENCE POPULATION, HAS BEEN CONFIRMED THE DECISION THRESHOLD FOR [place] DIAGNOSIS. Performed By: #### C MREP #### [facility] [address] [place] [address] Dr. Tho Hardy CARDIAC JEAN ADMITon 022 CK [Catalytic activity/Vol] 68 U/L Normal 26-192 [facility] Comment on above: Performed By: #### P REGKRISTIAN KramerR, UMICRO #### [facility] [address] [place] [address] Dr. Tho Hardy CK.MB [Mass/Vol] 1.11 ng/mL Normal <=3.60 [facility] Comment on above: Performed By: #### P REGU, ERUR, UMICRO #### [facility] [address] [place] [address] Dr. Tho Hardy HSTROP 4.3 pg/mL Normal 4.0-51.3 [facility] Comment on above: Result Comment: CUT- OFF POINTS HAVE BEEN ESTABLISHED BASED ON THE FOURTH UNIVERSAL DEFINITIONS OF MYOCARDIAL INFARCTION. THE UPPER REFERENCE LIMIT (URL) OF TROPONIN, DEFINED THE 99TH PERCENTILE OF cTnI DISTRIBUTION IN A REFERENCE POPULATION, HAS BEEN CONFIRMED THE DECISION THRESHOLD FOR [place] DIAGNOSIS. Performed By: #### P REGUKRISTIANR UMICRO #### [facility] [address] [place] [address] Dr. Tho Hardy KINDRA 29 ng/mL Normal 9-82 [facility] Comment on above: Performed By: #### P REGUKRISTIANR UMICRO #### [facility] [address] [place] [address] Dr. Tho Hardy CBC AUTO DIFFon 08-04-2022 BASO # 0.0 103/ul Normal 0.0-0.1 [facility] Comment on above: Performed By: #### P REGKRISTIAN KramerR UMICRO #### [facility] [address] [address] [address] Tho Hardy Basophils/100 WBC (Bld) 0.4 % Normal 0.2-2.0 [facility] Comment on above: Performed By: #### P REGKRISTIAN KramerR UMICRO #### [facility] [address] [place] [address] Dr. Tho Hardy EO # 0.2 103/ul Normal 0.0-0.7 [facility] Comment on above: Performed By: #### P REGU ERUR UMICRO #### [facility] [address] [place] [address] Dr. Tho Hardy Eosinophils/100 WBC (Bld) 1.7 % Normal 0.9-7.0 [facility] Comment on above: Performed By: #### P REGUKRISTIANR UMICRO #### [facility] [address] [place] [address] Dr. Tho Hardy Erythrocyte distribution width (RBC) [Ratio] 12.9 % Normal 11.0-15.0 [facility] Comment on above: Performed By: #### P REGUKRISTIANR, UMICRO #### [facility] [address] [place] [address] Dr. Tho Hardy Hematocrit (Bld) [Volume fraction] 43.2 % Normal 36.0-48.0 [facility] Comment on above: Performed By: #### P REGU, ERUR, UMICRO #### [facility] [address] [place] [address] Dr. Tho Hardy Hemoglobin (Bld) [Mass/Vol] 14.4 g/dL Normal 12.0-16.0 [facility] Comment on above: Performed By: #### P REGU, ERUR, UMICRO #### [facility] [address] [place] [address] Dr. hTo Hardy IG # 0.05 10e3/ul Critically high 0.00-0.03 [facility] Comment on above: Performed By: #### P REGU, ERUR, UMICRO #### [facility] [address] [place] [address] Dr. Tho Hardy IG % 0.4 % Normal 0.0-0.5 [facility] Comment on above: Performed By: #### P REGU, ERUR, UMICRO #### [facility] [address] [place] [address] Dr. Tho Hardy LYMPH # 2.4 103/ul Normal 1.2-3.8 [facility] Comment on above: Performed By: #### P REGU, ERUR, UMICRO #### [facility] [address] [place] [address] Dr. Tho Hardy Lymphocytes/100 WBC (Bld) 21.3 % Normal 20.5-60.0 [facility] Comment on above: Performed By: #### P REGU, ERUR, UMICRO #### [facility] [address] [place] [address] Dr. Tho Hardy MANUAL DIFF REQ NO Normal [facility] Comment on above: Performed By: #### P REGU, ERUR, UMICRO #### [facility] [address] [place], [place] [id number] Dr. Tho Hardy MCH (RBC) [Entitic mass] 29.9 pg Normal 26.7-34.0 [facility] Comment on above: Performed By: #### P REGU, ERUR, UMICRO #### [facility] [address] [place] [address] Dr. Tho Hardy MCHC (RBC) [Mass/Vol] 33.3 g/dL Normal 29.9-35.2 [facility] Comment on above: Performed By: #### P REGU, ERUR, UMICRO #### [facility] [address] [place] [address] Dr. Tho Hardy MCV (RBC) [Entitic vol] 89.6 fL Normal 81.0-99.0 [facility] Comment on above: Performed By: #### P REGU, ERUR, UMICRO #### [facility] [address] [place] [address] Dr. Tho Hardy MONO # 0.6 103/ul Normal 0.3-0.8 [facility] Comment on above: Performed By: #### P REGU, ERUR, UMICRO #### [facility] [address] [place] [address] Dr. Tho Hardy Monocytes/100 WBC (Bld) 5.5 % Normal 1.7-12.0 [facility] Comment on above: Performed By: #### P REGU, ERUR, UMICRO #### [facility] [address] [place] [address] Dr. Tho Hardy NEUT # 8.0 103/ul Critically high 1.4-6.5 The [facility] Comment on above: Performed By: #### P REGU, ERUR, UMICRO #### [facility] [address] [place] [address] Dr. Tho Hardy Neutrophils/100 WBC (Bld) 70.7 % Normal 43.0-75.0 [facility] Comment on above: Performed By: #### P REGU, ERUR, UMICRO #### [facility] [address] [place] [address] Dr. Tho Hardy Platelet mean volume (Bld) [Entitic vol] 10.7 fL Normal 9.5-13.5 [facility] Comment on above: Performed By: #### RICHARDSON GALE UMICRO #### [facility] [address] [address] [address] Tho Hardy PLT 220 103/ul Normal 150-450 [facility] Comment on above: Performed By: #### RICHARDSON GALE UMICRO #### [facility] [address] [address] [address] Tho Hardy RBC 4.82 106/ul Normal 4.20-5.40 [facility] Comment on above: Performed By: #### RICHARDSON GALE UMICRO #### [facility] [address] [address] [address] Tho Hardy WBC 11.3 103/ul Critically high 4.0-11.0 The [facility] Comment on above: Performed By: #### RICHARDSON GALE UMICRO #### [facility] [address] ABD/PELV W CONon [...] ISH HECTOR Date: 2022-08-04 05:28 Normal [facility] LACTATE/LACTIC ACIDon 2021 Lactate [Moles/Vol] 1.0 mmol/L Normal 0.4-1.9 The [facility] Comment on above: Performed By: #### L ACT #### [facility] [address] [place] [address] Dr. Tho Hardy Lactate [Moles/Vol] 1.2 mmol/L Normal 0.4-1.9 [facility] Comment on above: Performed By: #### L ACT #### [facility] [address] [place] [address] Dr. Tho Hardy LIPASEon 08-04-2022 Lipase [Catalytic activity/Vol] 72.0 U/L Critically low 73.0-393.0 [facility] Comment on above: Performed By: #### P REGU, ERUR, UMICRO #### [facility] [address] [place] [address] Dr. Tho Hardy PROF 14(COMP METB)on 022 Albumin [Mass/Vol] 3.7 g/dL Normal 3.4-5.0 [facility] Comment on above: Performed By: #### P REGU, ERUR, UMICRO #### [facility] [address] [place] [address] Dr. Tho Hardy Albumin/Globulin [Mass ratio] 0.9 {ratio} Normal [facility] Comment on above: Performed By: #### P REGU, ERUR, UMICRO #### [facility] [address] [place] [address] Dr. Tho Hardy ALP [Catalytic activity/Vol] 83 U/L Normal 46-116 [facility] Comment on above: Performed By: #### P REGU, ERUR, UMICRO #### [facility] [address] [place] [address] Dr. Tho Hardy ALT [Catalytic activity/Vol] 36 U/L Normal 14-59 [facility] Comment on above: Performed By: #### P REGU, ERUR, UMICRO #### [facility] [address] [address] [address] Tho Hardy Anion gap [Moles/Vol] 9.7 mmol/L Normal [facility] Comment on above: Performed By: #### P REGU, ERUR, UMICRO #### [facility] [address] [address] [address] Tho Hardy AST [Catalytic activity/Vol] 19 U/L Normal 15-37 [facility] Comment on above: Performed By: #### P REGU, ERUR, UMICRO #### [facility] [address] [place] [address] Dr. Tho Hardy Bilirubin [Mass/Vol] 0.3 mg/dL Normal 0.2-1.0 [facility] Comment on above: Performed By: #### P REGU, ERUR, UMICRO #### [facility] [address] [place] [address] Dr. Tho Hardy Calcium [Mass/Vol] 8.9 mg/dL Normal 8.5-10.1 The [facility] Comment on above: Performed By: #### P REGU, ERUR, UMICRO #### [facility] [address] [place] [address] Dr. Tho Hardy Chloride [Moles/Vol] 103 mmol/L Normal 98-107 [facility] Comment on above: Performed By: #### P REGU, ERUR, UMICRO #### [facility] [address] [place] [address] Dr. Tho Hardy CO2 [Moles/Vol] 27.8 mmol/L Normal 21.0-32.0 The [facility] Comment on above: Performed By: #### P REGU, ERUR, UMICRO #### [facility] [address] [place] [address] Dr. Tho Hardy Creatinine [Mass/Vol] 0.62 mg/dL Normal 0.55-1.02 [facility] Comment on above: Performed By: #### P REGU, ERUR, UMICRO #### [facility] [address] [address] [address] Tho Hardy EGFR-AF MOROCCAN >60 Normal >=60 [facility] Comment on above: Performed By: #### P REGU, ERUR, UMICRO #### [facility] [address] [address] [address] Tho Hardy EGFR-NON AF MOROCCAN >60 Normal >=60 [facility] Comment on above: Performed By: #### P REGU, ERUR, UMICRO #### [facility] [address] [address] [address] Tho Hardy Globulin (S) [Mass/Vol] 3.9 g/dL Normal [facility] Comment on above: Performed By: #### P REGU, ERUR, UMICRO #### [facility] [address] [address] [address] Tho Hardy Glucose [Mass/Vol] 98 mg/dL Normal 74-106 [facility] Comment on above: Performed By: #### P REGU, ERUR, UMICRO #### [facility] [address] [place] [address] Dr. Tho Hardy Potassium [Moles/Vol] 3.5 mmol/L Normal 3.5-5.1 [facility] Comment on above: Performed By: #### P REGU, ERUR, UMICRO #### [facility] [address] [address] [address] Tho Hardy Protein [Mass/Vol] 7.6 g/dL Normal 6.4-8.2 [facility] Comment on above: Performed By: #### P REGU, ERUR, UMICRO #### [facility] [address] [address] [address] Tho Hardy Sodium [Moles/Vol] 137 mmol/L Normal 136-145 [facility] Comment on above: Performed By: #### P REGU, ERUR, UMICRO #### [facility] [address] [address] [address] Tho Hardy Urea nitrogen [Mass/Vol] 18.0 mg/dL Normal 7.0-18.0 [facility] Comment on above: Performed By: #### RICHARDSON GALE UMICRO #### [facility] [address] [address] [address] Tho Hardy Urea nitrogen/Creatinine [Mass ratio] 29.0 mg/mg Normal [facility] Comment on above: Performed By: #### RICHARDSON GALE UMICRO #### [facility] [address] [address] [address] Tho Hardy XR CHEST 1 Von [...] by: JOLENE BURDICK Date: 2022-08-04 02:02 Normal [facility] D-DIMERon 07-09-2022 D-DIMER 0.23 mg/L FEU Normal <=0.59 The [facility] Comment on above: Performed By: #### RICHARDSON GALE UMICRO #### [facility] [address] [place] [address] Dr. Tho Hardy D-DIMER COMMENTS SEE BELOW Normal The [facility] Comment on above: Result Comment: Incr eases [...] stress, and generalized hospitalization. Performed By: #### RICHARDSON GALE UMICRO #### [facility] [address] [address] [address] Tho Hardy XR HIP LT 2 [...] JOSIE KING Date: 2022-07-08 23:54 Normal [facility] US PELVIS TRANSVAGon 022 US PELVIS TRANSVAG [...] by: AYAD BIGGS Date: 2022-05-01 10:25 Normal [facility] CNOVon 04-26-2022 [facility] Office Visit ([facility] ) CONNIE SALCIDO ([id number]) 1995 F Date Time Provider Department 04/26/22 1:30 PM CARLOS TARIQ [facility] During your visit today, we recorded the following information about you: Pulse Blood pressure Weight Height 104/minute 140/84 138.3 kg 1.524 m Last Period 04/19/22 Jess Suero MA 04/26/2022 1:37 PM Signed What is the reason for your visit today? PUMPMAN hernia Who is your referring physician? 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 NO Have you had unintentional weight loss of 15 lbs/7 Kg in the last 3-6 months? NO Bowels: regular Wound: none Temperature: No Drains: No Carlos Tariq MD 04/26/2022 2:32 PM Signed Consultation requested by Dr. Noah Walton for an opinion regarding incisional hernia. [...] concerns addressed Pt appreciative of the care Carlos Tariq MD Referring Provider: NOAH WALTON [[id number]] Allergies As of Date: 04/26/2022 Noted Allergy Reaction MELOXICAM 04/26/2022 14 - Other: See Comments Comments: headache Date Reviewed: 04/26/2022 Reviewed by: Jess Suero MA - Fully Assessed Reason for Visit: [...] is the reason for your visit today? PUMPMAN hernia Who is your referring physician? 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 NO Have you had unintentional weight loss of 15 lbs/7 Kg in the last 3-6 months? NO Bowels: regular Wound: none Temperature: No Drains: No Encounter Status:Closed by CARLOS TARIQ on 04/26/22 Normal [facility] CT ABD/PELV W CONon 04-12-20 CT ABD/PELV [...] YENI PARNELL Date: 2022-04-12 00:02 Normal [facility] CBC AUTO DIFFon 04-11-2022 BASO # 0.0 103/ul Normal 0.0-0.1 [facility] Comment on above: Performed By: #### P RICHARDSON MCNEIL UMICRO #### [facility] [address] [address] [address] Tho Hardy Basophils/100 WBC (Bld) 0.2 % Normal 0.2-2.0 [facility] Comment on above: Performed By: #### P REGU, ERUR, UMICRO #### [facility] [address] [place] [address] Dr. Tho Hardy EO # 0.1 103/ul Normal 0.0-0.7 [facility] Comment on above: Performed By: #### P REGU, ERUR, UMICRO #### [facility] [address] [address] [address] Tho Hardy Eosinophils/100 WBC (Bld) 0.7 % Critically low 0.9-7.0 [facility] Comment on above: Performed By: #### P REGU, ERUR, UMICRO #### [facility] [address] [place] [address] Dr. Tho Hardy Erythrocyte distribution width (RBC) [Ratio] 13.4 % Normal 11.0-15.0 [facility] Comment on above: Performed By: #### P REGU, ERUR, UMICRO #### [facility] [address] [place] [address] Dr. Tho Hardy Hematocrit (Bld) [Volume fraction] 39.9 % Normal 36.0-48.0 [facility] Comment on above: Performed By: #### P REGU, ERUR, UMICRO #### [facility] [address] [place] [address] Dr. Tho Hardy Hemoglobin (Bld) [Mass/Vol] 13.3 g/dL Normal 12.0-16.0 [facility] Comment on above: Performed By: #### P REGU, ERUR, UMICRO #### [facility] [address] [place] [address] Dr. Tho Hardy IG # 0.04 10e3/ul Critically high 0.00-0.03 [facility] Comment on above: Performed By: #### P REGU, ERUR, UMICRO #### [facility] [address] [place] [address] Dr. Tho Hardy IG % 0.4 % Normal 0.0-0.5 [facility] Comment on above: Performed By: #### P REGU, ERUR, UMICRO #### [facility] [address] [place] [address] Dr. Tho Hardy LYMPH # 2.8 103/ul Normal 1.2-3.8 [facility] Comment on above: Performed By: #### P REGU, ERUR, UMICRO #### [facility] [address] [place] [address] Dr. Tho Hardy Lymphocytes/100 WBC (Bld) 31.1 % Normal 20.5-60.0 [facility] Comment on above: Performed By: #### P REGU, ERUR, UMICRO #### [facility] [address] [place] [address] Dr. Tho Hardy MANUAL DIFF REQ NO Normal [facility] Comment on above: Performed By: #### P REGU, ERUR, UMICRO #### [facility] [address] [place] [address] Dr. Tho Hardy MCH (RBC) [Entitic mass] 29.8 pg Normal 26.7-34.0 [facility] Comment on above: Performed By: #### P REGU, ERUR, UMICRO #### [facility] [address] [place] [address] Dr. Tho Hardy MCHC (RBC) [Mass/Vol] 33.3 g/dL Normal 29.9-35.2 [facility] Comment on above: Performed By: #### P REGU, ERUR, UMICRO #### [facility] [address] [place] [address] Dr. Tho Hardy MCV (RBC) [Entitic vol] 89.5 fL Normal 81.0-99.0 [facility] Comment on above: Performed By: #### P REGU, ERUR, UMICRO #### [facility] [address] [place] [address] Dr. Tho Hardy MONO # 0.7 103/ul Normal 0.3-0.8 [facility] Comment on above: Performed By: #### P REGU, ERUR, UMICRO #### [facility] [address] [place] [address] Dr. Tho Hadry Monocytes/100 WBC (Bld) 7.3 % Normal 1.7-12.0 [facility] Comment on above: Performed By: #### P REGU, ERUR, UMICRO #### [facility] [address] [place] [address] Dr. Tho Hardy NEUT # 5.4 103/ul Normal 1.4-6.5 [facility] Comment on above: Performed By: #### P REGU, ERUR, UMICRO #### [facility] [address] [place] [address] Dr. Tho Hardy Neutrophils/100 WBC (Bld) 60.3 % Normal 43.0-75.0 [facility] Comment on above: Performed By: #### P REGU, ERUR, UMICRO #### [facility] [address] [place] [address] Dr. Tho Hardy Platelet mean volume (Bld) [Entitic vol] 9.1 fL Critically low 9.5-13.5 [facility] Comment on above: Performed By: #### P REGU, ERUR, UMICRO #### [facility] [address] [place] [address] Dr. Tho Hardy PLT 249 103/ul Normal 150-450 [facility] Comment on above: Performed By: #### P REGU, ERUR, UMICRO #### [facility] [address] [place] [address] Dr. Tho Hardy RBC 4.46 106/ul Normal 4.20-5.40 [facility] Comment on above: Performed By: #### P REGU, ERUR, UMICRO #### [facility] [address] [place] [address] Dr. Tho Hardy WBC 9.0 103/ul Normal 4.0-11.0 [facility] Comment on above: Performed By: #### P REGU, ERUR, UMICRO #### [facility] [address] [address] [address] Tho Hardy ER URINE PROFILEon 2 Bilirubin Ql (U) Negative Normal NEGATIVE [facility] Comment on above: Performed By: #### B MP #### [facility] [address] [place] [address] Dr. Tho Hardy Clarity (U) CLEAR Normal CLEAR [facility] Comment on above: Performed By: #### B MP #### [facility] [address] [place] [address] Dr. Tho Hardy Color (U) YELLOW Normal YELLOW [facility] Comment on above: Performed By: #### B MP #### [facility] [address] [place] [address] Dr. Tho RIVERA A micrscopic examination will be performed if indicated. Normal [facility] Comment on above: Performed By: #### B MP #### [facility] [address] [place] [address] Dr. Tho Hardy Glucose Ql (U) Negative Normal NEGATIVE [facility] Comment on above: Performed By: #### B MP #### [facility] [address] [place] [address] Dr. Tho Hardy Hemoglobin Ql (U) MODERATE Abnormal NEGATIVE [facility] Comment on above: Performed By: #### B MP #### [facility] [address] [place] [address] Dr. Tho Hardy Ketones Ql (U) Negative Normal NEGATIVE [facility] Comment on above: Performed By: #### B MP #### [facility] [address] [place] [address] Dr. Tho Hardy LEUKOCYTES Negative Normal NEGATIVE [facility] Comment on above: Performed By: #### B MP #### [facility] [address] [place] [address] Dr. Tho Hardy Nitrite Ql (U) Negative Normal NEGATIVE [facility] Comment on above: Performed By: #### B MP #### [facility] [address] [place] [address] Dr. Tho Hardy pH (U) 5.5 [pH] Normal 5-9 [facility] Comment on above: Performed By: #### B MP #### [facility] [address] [place] [address] Dr. Tho Hardy SPEC GRAVITY >=1.030 Abnormal 1.005-<=1.025 [facility] Comment on above: Performed By: #### B MP #### [facility] [address] [place] [address] Dr. Tho Hardy UA PROTEIN Negative Normal NEGATIVE/ TRACE [facility] Comment on above: Performed By: #### B MP #### [facility] [address] [place] [address] Dr. Tho Hardy UR MICRO IND INDICATED Normal [facility] Comment on above: Performed By: #### B MP #### [facility] [address] [place] [address] Dr. Tho Hardy Urobilinogen Qn (U) 0.2 {Roland'U}/dL Normal 0.2 - 1. 0 [facility] Comment on above: Performed By: #### B MP #### [facility] [address] [place] [address] Dr. Tho Hardy LIPASEon 04-11-2022 Lipase [Catalytic activity/Vol] 88.0 U/L Normal 73.0-393.0 [facility] Comment on above: Performed By: #### L ACT #### [facility] [address] [place] [address] Dr. Tho Hardy PREG HCG QUALon 04-11-2022 , QUAL Negative Normal NEGATIVE [facility] Comment on above: Performed By: #### P REG #### [facility] [address] [place] [address] Dr. Tho Hardy PROF 14(COMP METB)on 022 Albumin [Mass/Vol] 3.5 g/dL Normal 3.4-5.0 [facility] Comment on above: Performed By: #### L ACT #### [facility] [address] [place] [address] Dr. Tho Hardy Albumin/Globulin [Mass ratio] 0.9 {ratio} Normal [facility] Comment on above: Performed By: #### L ACT #### [facility] [address] [address] [address] Tho Hardy ALP [Catalytic activity/Vol] 73 U/L Normal 46-116 [facility] Comment on above: Performed By: #### L ACT #### [facility] [address] [address] [address] Tho Hardy ALT [Catalytic activity/Vol] 29 U/L Normal 14-59 [facility] Comment on above: Performed By: #### L ACT #### [facility] [facility] [address] [address] [address] Tho Hardy Anion gap [Moles/Vol] 10.4 mmol/L Normal [facility] Comment on above: Performed By: #### L ACT #### [facility] [address] [place] [address] Dr. Tho Hardy AST [Catalytic activity/Vol] 15 U/L Normal 15-37 [facility] Comment on above: Performed By: #### L ACT #### [facility] [address] [place] [address] Dr. Tho Hardy Bilirubin [Mass/Vol] 0.4 mg/dL Normal 0.2-1.0 [facility] Comment on above: Performed By: #### L ACT #### [facility] [address] [place] [address] Dr. Tho Hardy Calcium [Mass/Vol] 8.4 mg/dL Critically low 8.5-10.1 Th [facility] Comment on above: Performed By: #### L ACT #### [facility] [address] [place] [address] Dr. Tho Hardy Chloride [Moles/Vol] 103 mmol/L Normal 98-107 [facility] Comment on above: Performed By: #### L ACT #### [facility] [address] [place] [address] Dr. Tho Hardy CO2 [Moles/Vol] 27.8 mmol/L Normal 21.0-32.0 [facility] Comment on above: Performed By: #### L ACT #### [facility] [address] [address] [address] Tho Hardy Creatinine [Mass/Vol] 0.75 mg/dL Normal 0.55-1.02 [facility] Comment on above: Performed By: #### L ACT #### [facility] [address] [address] [address] Tho Hardy EGFR-AF MOROCCAN >60 Normal >=60 [facility] Comment on above: Performed By: #### L ACT #### [facility] [address] [address] [address] Tho Hardy EGFR-NON AF MOROCCAN >60 Normal >=60 [facility] Comment on above: Performed By: #### L ACT #### [facility] [address] [place] [address] Dr. Tho Hardy Globulin (S) [Mass/Vol] 3.7 g/dL Normal [facility] Comment on above: Performed By: #### L ACT #### [facility] [address] [address] [address] Tho Hardy Glucose [Mass/Vol] 88 mg/dL Normal 74-106 [facility] Comment on above: Performed By: #### L ACT #### [facility] [address] [place] [address] Dr. Tho Hardy Potassium [Moles/Vol] 3.2 mmol/L Critically low 3.5-5.1 [facility] Comment on above: Performed By: #### L ACT #### [facility] [address] [address] [address] Tho Hardy Protein [Mass/Vol] 7.2 g/dL Normal 6.4-8.2 [facility] Comment on above: Performed By: #### L ACT #### [facility] [address] [place] [address] Dr. Tho Hardy Sodium [Moles/Vol] 138 mmol/L Normal 136-145 [facility] Comment on above: Performed By: #### L ACT #### [facility] [address] [place] [address] Dr. Tho Hardy Urea nitrogen [Mass/Vol] 13.0 mg/dL Normal 7.0-18.0 [facility] Comment on above: Performed By: #### L ACT #### [facility] [address] [place] [address] Dr. Tho Hardy Urea nitrogen/Creatinine [Mass ratio] 17.3 mg/mg Normal [facility] Comment on above: Performed By: #### L ACT #### [facility] [address] [place] [address] Dr. Tho Hardy PROTIMEon 04-11-2022 INR Coag (PPP) [Relative time] 0.97 {INR} Normal [facility] Comment on above: Performed By: #### P RICHARDSON MCNEIL UMICRO #### [facility] [address] [place] [address] Dr. Tho Hardy INR GUIDELINES SEE BELOW Normal The [facility] Comment on above: Result Comment: JOSEFINA RED INR: 2.0 - 3.0 CONDITIONS NOT LISTED BELOW 2.5 - 3.5 FOR PROSTHETIC HEART VALVE REPLACEMENT 2.5 - 3.5 RECURRENT THROMBOSIS Performed By: #### P REGKRISTIAN KramerR UMICRO #### [facility] [address] [place] [address] Dr. Tho Hardy PT Coag (PPP) [Time] 10.5 s Normal 9.0-11.6 [facility] Comment on above: Performed By: #### P REGURICHARDSON UMICRO #### [facility] [address] [place] [address] Dr. Tho Hardy PTTon 04-11-2022 aPTT Coag (Bld) [Time] 27.8 s Normal 22.3-36.2 [facility] Comment on above: Performed By: #### P REGURICHARDSON UMICRO #### [facility] [address] [place] [address] Dr. Tho Hardy URINE MICROSCOPIC ONLYon BACTERIA NONE SEEN Normal NONE SEEN [facility] Comment on above: Performed By: #### B MP #### [facility] [address] [place] [address] Dr. Tho Hardy Bacteria identified Cx Nom (U) NOT INDICATED Normal [facility] Comment on above: Performed By: #### B MP #### [facility] [address] [place] [address] Dr. Tho Hardy CAST NONE SEEN Normal NONE SEEN [facility] Comment on above: Performed By: #### B MP #### [facility] [address] [place] [address] Dr. Tho Hardy Crystals LM Nom (Urine sed) NONE SEEN Normal NONE SEEN [facility] Comment on above: Performed By: #### B MP #### [facility] [address] [place] [address] Dr. Tho Hardy Epithelial cells LM Ql (Urine sed) NONE SEEN Normal NONE SEEN /RARE [facility] Comment on above: Performed By: #### B MP #### [facility] [address] [place] [address] Dr. Tho Hardy MUCOUS NONE SEEN Normal NONE SEEN [facility] Comment on above: Performed By: #### B MP #### [facility] [address] [place] [address] Dr. Tho Hardy RBC 2-5 Abnormal 0-2 [facility] Comment on above: Performed By: #### B MP #### [facility] [address] [place] [address] Dr. Tho Hardy WBC NONE SEEN Normal NONE SEEN [facility] Comment on above: Performed By: #### B MP #### [facility] [address] [place] [address] Dr. Tho Hardy XR ANKLE LT MIN 3 Von 2021 XR ANKLE LT MIN 3 V EXAM: XR ANKLE LT NV N 3 V HISTORY: Left ankle pain COMPARISON: None. TECHNIQUE: 3 views FINDINGS: No osseous lesion, fracture, dislocation or subluxation. Joint spaces are normal. No visualized effusion. No visualized soft tissue edema. IMPRESSION: Normal x-rays Electronically authenticated by: AYAD CORTEZ Date: 2022-02-06 19:06 Normal [facility] Vital Signs Date Time Vital Sign Value Performing Clinician Kekei lity 09-13-2024 15:10-0500 Body mass index (BMI) [Ratio] 53.31 kg/m2 Noah Isabelle DO Work Phone: [facility] 09-13-2024 15:10-0500 Body weight 127.97 kg Noah Isabelle DO Work Phone: [facility] 09-13-2024 15:10-0500 Diastolic blood pressure 82 mm[Hg] Noah Isabelle DO Work Phone: [facility] 09-13-2024 15:10-0500 Systolic blood pressure 130 mm[Hg] Noah Isabelle DO Work Phone: [facility] 05-16-2022 14:03-0400 Body weight 133.81 kg Rosa Maria Israel MD Work Phone: [facility] 05-16-2022 12:56-0400 Body height 152.[address] Work Phone: [facility] 05-16-2022 12:56-0400 Body weight 133.[address] Work Phone: [facility] Encounters Encounter Date Encounter Type Care Provider Facility Start: 09-13-2024 End: 09-13-2024 Office outpatient visit 15 minutes Noah Isabelle DO Work Phone: [facility] Comment on above: Sweating abnormality ; Status post hysterectomy; Vaginal dryness Start: 09-13-2024 End: 09-13-2024 ambulatory NOAH ISABELLE Not Available Start: 09-13-2024 End: 09-13-2024 Bamboo flowsheet Noah Isabelle DO Work Phone: [facility] Start: 09-13-2024 End: 09-13-2024 Bamboo flowsheet Noah Isabelle DO Work Phone: [facility] Start: 01-06-2024 End: 01-07-2024 ambulatory KERA E EROS Facility:[facility] Start: 11-11-2023 End: 11-12-2023 ambulatory KERA E EROS Facility:[facility] Start: 08-19-2023 End: 08-20-2023 ambulatory Carmen Jasper Coello Facility:[facility] Start: 12-30-2022 End: 12-30-2022 ambulatory MITESH WHITMAN . Facility:[facility] Start: 12-17-2022 End: 12-17-[address] NOAH WALTON . Facility:[facility] Start: 11-13-2022 End: 11-14-[address] VALERIE DONATO . Facility:[facility] Start: 10-30-[address] VALERIE DONATO . Facili ty:[facility] Start: 2022 End: 10-16-2022 ambulatory ISH EDGAR Facility:[facility] Start: 10-14-2022 End: 10-14-2022 ambulatory NATALIE BOX Facility:[facility] Start: 09-26-2022 End: 09-26-2022 ambulatory NATALIE BOX Facility:[facility] Start: 08-04-2022 End: 08-04-2022 ambulatory ATRA SAN Facility:[facility] Start: 07-09-2022 End: 07-09-2022 ambulatory [...] Maria Israel MD Work Phone: [facility] Start: 05-01-2022 End: 05-02-[address] NOAH WALTON . Facility:[facility] Start: 04-11-2022 End: 04-12-[address] VALERIE DONATO . Facility:[facility] Start: 03-21-2022 End: 03-22-2022 ambulatory ISH EDGAR Facility:[facility] Start: 03-18-2022 End: 03-18-[address] VALERIE DONATO . Facility:[facility] Start: 03-14-2022 End: 04-04-2022 ambulatory JERED TOVAR Facility:[facility] Start: 02-14-2022 End: 02-15-2022 ambulatory ISH EDGAR Facility:[facility] Start: 02-06-2022 End: 02-06-[address] VALERIE DONATO . Facility: Procedures Date Procedure Procedure Detail Performing Clinician Start: 12-17-2022 Microscopic observation [Identifier] in Cervix by Cyto stain Noah Walton DO Work Phone: H/O: hysterectomy Status post hysterectom y Noah Walton DO Work Phone: Plan of Treatment Date Care Activity Detail Author Start: 12-17-2025 Screening for malign ant neoplasm of cervix [facility] Start: 09-13-2024 End: 09-13-2024 Patient encounter procedure 09/13/2024 2:50 PM EST Office Visit [facility] [address] [place] [id number] Noah Walton, [address] [place], [place] [id number] Arrived [facility] Comment on above: Arrived Start: 05-09-2024 Influenza vaccination Influenza Vacc ine (#1) [facility] Start: 2023 Screening for malign ant neoplasm of cervix HPV/Cotest [facility] Start: 05-16-2022 End: 05-14-2023 25-hydroxyvitamin D3 [Mass/volume] in Serum or Plasma VITAMIN D 25 HYDROXY Lab Routine Abnormal weight gain Preop testing Morbid obesity with BMI of 50.0-59.9, adult (HCC) HANH (obstructive sleep apnea) Expected: 05/16/2022 (Approximate), Expires: 05/14/2023 [facility] Work Phone: Comment on above: Expected: 05/16/2022 (Approximate), Expires: 05/14/2023 Start: 05-16-2022 End: 09-06-2023 CBC panel - Blood by Automated count CBC Lab Routine Abnormal weight gain Preop testing Morbid obesity with BMI of 50.0-59.9, adult (HCC) HANH (obstructive sleep apnea) Expected: 05/16/2022 (Approximate), Expires: 05/14/2023 [facility] Work Phone: Comment on above: Expected: 05/16/2022 (Approximate), Expires: 05/14/2023 Start: 05-16-2022 End: 05-14-2023 Cobalamin (Vitamin B12) [Mass/volume] in Serum or Plasma VITAMIN B12 BLOOD Lab Routine Abnormal weight gain Preop testing Morbid obesity with BMI of 50.0-59.9, adult (HCC) HANH (obstructive sleep apnea) Expected: 05/16/2022 (Approximate), Expires: 05/14/2023 [facility] Work Phone: Comment on above: Expected: 05/16/2022 (Approximate), Expires: 05/14/2023 Start: 05-16-2022 End: 05-14-2023 Comprehensive metabolic 2000 panel - Serum or Plasma COMP METABOLIC PANEL Lab Routine Abnormal weight gain Preop testing Morbid obesity with BMI of 50.0-59.9, adult (HCC) HANH (obstructive sleep apnea) Expected: 05/16/2022 (Approximate), Expires: 05/14/2023 [facility] Work Phone: Comment on above: Expected: 05/16/2022 (Approximate), Expires: 05/14/2023 Start: 05-16-2022 End: 05-14-2023 Folate [Mass/volume] in Serum or Plasma FOLATE SERUM Lab Routine Abnormal weight gain Preop testing Morbid obesity with BMI of 50.0-59.9, adult (HCC) HANH (obstructive sleep apnea) Expected: 05/16/2022 (Approximate), Expires: 05/14/2023 [facility] Work Phone: Comment on above: Expected: 05/16/2022 (Approximate), Expires: 05/14/2023 Start: 05-16-2022 End: 05-14-2023 Hemoglobin A1c in Blood HGB A1C Lab Routine Abnormal weight gain Preop testing Morbid obesity with BMI of 50.0-59.9, adult (HCC) HANH (obstructive sleep apnea) Expected: 05/16/2022 (Approximate), Expires: 05/14/2023 [facility] Work Phone: Comment on above: Expected: 05/16/2022 (Approximate), Expires: 05/14/2023 Start: 05-16-2022 End: 05-14-2023 Iron and Iron binding capacity panel - Serum or Plasma IRON + TIBC Lab Routine Abnormal weight gain Preop testing Morbid obesity with BMI of 50.0-59.9, adult (HCC) HANH (obstructive sleep apnea) Expected: 05/16/2022 (Approximate), Expires: 05/14/2023 [facility] Work Phone: Comment on above: Expected: 05/16/2022 (Approximate), Expires: 05/14/2023 Start: 05-16-2022 End: 05-14-2023 Parathyrin.intact [Mass/volume] in Serum or Plasma PTH INTACT BLD Lab Routine Abnormal weight gain Preop testing Morbid obesity with BMI of 50.0-59.9, adult (HCC) HANH (obstructive sleep apnea) Expected: 05/16/2022 (Approximate), Expires: 05/14/2023 [facility] Work Phone: Comment on above: Expected: 05/16/2022 (Approximate), Expires: 05/14/2023 Start: 05-16-2022 End: 05-14-2023 Thyrotropin [Units/volume] in Serum or Plasma TSH BLD Lab Routine Abnormal weight gain Preop testing Morbid obesity with BMI of 50.0-59.9, adult (HCC) HANH (obstructive sleep apnea) Expected: 05/16/2022 (Approximate), Expires: 05/14/2023 [facility] Work Phone: Comment on above: Expected: 05/16/2022 (Approximate), Expires: 05/14/2023 Start: 05-16-2022 End: 07-16-2022 VITAMIN B1 (THIAMINE), WHOLE BLOOD VITAMIN B1 (THIAMINE), WHOLE BLOOD Lab Routine Abnormal weight gain Preop testing Morbid obesity with BMI of 50.0-59.9, adult (HCC) HANH (obstructive sleep apnea) Expected: 05/16/2022 (Approximate), Expires: 07/16/2022 [facility] Work Phone: Comment on above: Expected: 05/16/2022 (Approximate), Expires: 07/16/2022 Start: 05-09-2022 Influenza vaccination INFLUENZA (#1) [facility] Start: 05-05-2022 COVID-19 VACCINE (3 - Booster for Pfizer series) COVID-19 VACCINE (3 - Booster for Pfizer series) [facility] Start: 2014 PAP TESTING PAP TESTING [facility] Start: 2012 Urine microalbumin profile DTAP,TDAP,TD (1 - Tdap) [facility] Start: 2011 HEPATITIS C SCREENING HEPATITIS C SC REENING [facility] Start: 2011 HIV SCREENING HIV SCREENING [facility] Start: 2005 Adult depression screening assessment DEPRESSION SCREENING [facility] Start: 1993 HEPATITIS B (1 of 3 - 3-dose series) HEPATITIS B (1 of 3 - 3-dose series) [facility] End: 05-14-2023 ECG COMPLETE ECG COMPLETE ECG Routine Abnormal weight gain Preop testing Morbid obesity with BMI of 50.0-59.9, adult (HCC) HANH (obstructive sleep apnea) 1 Occurrences starting 05/16/2022 until 05/14/2023 [facility] Work Phone: Comment on above: 1 Occurrences starti ng 05/16/2022 until 05/14/2023 End: 06-13-2023 Radiologic exam chest 2 views XR CHEST 2V FRONTAL/LAT Radiology Routine Abnormal weight gain Preop testing Morbid obesity with BMI of 50.0-59.9, adult (HCC) HANH (obstructive sleep apnea) 1 Occurrences starting 05/16/2022 until 06/13/2023 [facility] Work Phone: Comment on above: 1 Occurrences starti ng 05/16/2022 until 06/13/2023 [facility] Immunizations Immunization Date Immunization Notes Care Provider Simba may 06-18-2022 influenza virus vacc ine, unspecified formulation Noah Walton DO Work Phone: [facility] Payers Date Payer Category Payer Medicaid [employer] [employer] [id number] 2018-Present [phone] [address] [place] [address] Medicaid [id number] 2018 Medicaid (Managed Care) [employer] [id number] 1993 Unknown [id number] 2.16.840.1.516201.3.579.2. 593 1993 Unknown [id number] 2.16.840.1.817390.3.579.2. 593 1993 Unknown [id number] 2.16.840.1.014541.3.579.2. 593 1993 Unknown [id number] 2.16.840.1.048339.3.579.2. 593 1993 Unknown [id number] 2.16.840.1.396223.3.579.2. 593 1993 Unknown [id number] 2.16.840.1.844179.3.579.2. 593 1993 Unknown [id number] 2.16.840.1.233694.3.579.2. 593 1993 Unknown [id number] 2.16.840.1.764737.3.579.2. 593 1993 Unknown [id number] 2.16.840.1.084718.3.579.2. 593 1993 Unknown [id number] 2.16.840.1.114775.3.579.2. 593 1993 Unknown [id number] 2.16.840.1.572338.3.579.2. 593 1993 Unknown [id number] 2.16.840.1.288809.3.579.2. 593 1993 Unknown [id number] 2.16.840.1.945685.3.579.2. 593 1993 Unknown [id number] 2.16.840.1.145772.3.579.2. 593 1993 Unknown [id number] 2.16.840.1.464354.3.579.2. 593 1993 Unknown [id number] 2.16.840.1.894881.3.579.2. 593 1993 Unknown [id number] 2.16.840.1.026526.3.579.2. 727 1993 Unknown [id number] 2.16.840.1.772442.3.579.2. 727 1993 Unknown [id number] 2.16.840.1.908945.3.579.2. 727 1993 Unknown [id number] 2.16.840.1.498725.3.579.2. 1259 1959 Unknown [id number] Social History Date Type Detail Facility Start: 04-26-2022 End: 01-27-2023 Tobacco smoking status AKIS Never smoked tobacco [facility] Start: 04-26-2022 End: 01-27-2023 Tobacco use and exposure Smokeless tobacco non-user [facility] Start: 1993 Sex Assigned At Not on file [facility] Start: 04-14-2022 End: 04-24-2022 Exposure to SARS-CoV-2 (event) Not sure [facility] Start: 05-05-2023 End: 09-13-2024 Alcoholic beverage intake Ex-drinker (finding) [facility] Start: 05-05-2023 End: 09-13-2024 History of Social function [facility] Start: 05-05-2023 End: 09-13-2024 Tobacco use panel [facility] Clinical Notes 02-15-2022 to 09-13-2024 Shakira Tellezreyna, [employer] - 09/13/2024 2:50 PM ESTPatient InstructionsPatient InstructionsRosa Maria Israel MD - 05/16/2022 2:[address] - 05/16/2022 12:53 PM EDT Note Date & Type Note Facility 09-13-2024 History of Present illness Narrative Reason for Appointment: Patient ID: Connie Salcido is a 28 y.o. female who presents for Excessive Sweating Patient presents today for Consult appointment. MEDICATIONS Current Outpatient Medications Medication Instructions Fioricet 50-300-40 MG capsule 1 capsule, Every 4 hours PRN phentermine (ADIPEX-P) 37.5 mg, Daily before breakfast ALLERGIES Allergies Allergen Reactions Meloxicam Headache PROBLEMS Active Ambulatory Problems Diagnosis Date Noted No Active Ambulatory Problems Resolved Ambulatory Problems Diagnosis Date Noted No Resolved Ambulatory Problems Past Medical History: Diagnosis Date Abnormal weight gain Menorrhagia HISTORY PAST MEDICAL HISTORY SOCIAL HISTORY Past Medical History: Diagnosis Date Abnormal weight gain Menorrhagia Social History Tobacco Use Smoking status: Never Smokeless tobacco: Never Substance Use Topics Alcohol use: Not Currently Drug use: Never FAMILY HISTORY Family History Problem Relation Name Age of Onset Hypertension Mother Heart disease Mother Mental illness Mother Hypertension Maternal Grandmother Cancer Maternal Grandmother SURGICAL HISTORY Past Surgical History: Procedure Laterality Date ANKLE SURGERY right CHOLECYSTECTOMY CYSTOSCOPY 04/10/2023 ENDOMETRIAL ABLATION HYSTERECTOMY 04/10/2023 KIDNEY STONE SURGERY SALPINGECTOMY 04/10/2023 TUBAL LIGATION REVIEW OF SYSTEMS Review of Systems: Review of Systems All other systems reviewed and are negative. OBJECTIVE Objective: Physical Exam Constitutional: Appearance: Normal appearance. She is well-developed. Cardiovascular: Rate and Rhythm: Normal rate and regular rhythm. Pulmonary: Effort: Pulmonary effort is normal. Breath sounds: Normal breath sounds. Abdominal: General: Bowel sounds are normal. There is no distension. Palpations: Abdomen is soft. Tenderness: There is no abdominal tenderness. There is no guarding or rebound. Musculoskeletal: General: No swelling. Normal range of motion. Right lower leg: No edema. Left lower leg: No edema. Neurological: Mental Status: She is alert and oriented to person, place, and time. Skin: General: Skin is warm and dry. Psychiatric: Mood and Affect: Mood normal. Behavior: Behavior normal. Vitals and nursing note reviewed. Exam conducted with a streetcar dispatcher present. Vitals: Estimated body mass index is 53.31 kg/m as calculated from the following: Height as of 04/17/23: 5' 1 . Weight as of this encounter: 282 lb 1.9 oz. BP: 130/82 Patient's last menstrual period was 03/03/2023. ASSESSMENT & PLAN ICD-10-CM 1. Sweating abnormality L74.9 Patient presents today for consult for sweating after hysterectomy. Discussed that symptoms are most likely hormonal. Sent Climara patch to pharmacy and patient to notify office with any issues. Patient advised to also use coconut oil to help with vaginal dryness. Documented by Shakira Elizabeth LPN on behalf of: Noah Walton DO documented in this encounter [facility] 05-17-[address] - 05/17/2022 [...] Read Nutrition Guidelines section before next visit. [email or web address] Pre-op goal weight: 276 pounds Protein needs: 70 gm per day Nutrition Monitoring & Evaluation: Weight loss of 1-2 pounds per week and adherence to above recommendations Criteria: Patient update and weight check Need for Follow up: 1 month, please call [phone] documented in this encounter [facility] 05-16-2022 Instructions Rosa Maria Israel MD - 05/16/2022 5:19 PM EDT INSTRUCTIONS: 1) Please contact me (Dr. Israel) if you have not heard about your test results within a few days after you had them done. Thank you: Contact information: [facility] [place] M61/Attention: Dr. Israel [address] [place] [address] 2) Please check with your insurance company regarding cost/coverage of any tests ordered prior to having them completed. Colleen Salcido , Thank you for completing your visit today and we welcome you to the surgical program. We are sure that you will still have some additional questions and encourage you to reach out to your care provider via [employer] OR your Patient Navigator. Patient Navigators are assigned alphabetically by patient last name. The contact information for each Navigator is listed below. Last names A-E= Naga Last names F-L = Benito Last names M-R= Jay Last names S-Z= Martina Additionally, you may find many of the [...] free to ask for a hard copy. [email or web address] Once you complete all of the requirements (testing, consultations, diet, etc) from each provider, please call [phone] and select option #5 to initiate insurance approval. Please note scheduling information It is important to keep track of your scheduled appointments to ensure successful completion of our surgical program. Any missed appointments can further delay your pre-surgical work-up. [facility] does offer an opt-in option for getting text message appointment reminders. Please follow the link below if you would like to opt into this service. [email or web address] As part of your [...] these tests. You may call your local [facility] to get an appointment. - Lab work- No appointment is needed for this, you may complete at any [facility] Laboratory. These are usually fasting labs, please be sure to fast (only water permitted) for 10-12 hours prior to the test. -Sleep Study- Please call [phone] or [phone] to get this appointment set up. -Sleep Medicine Consult- (Only needed if sleep study confirms sleep apnea) Please call [phone] or [phone] to schedule an appointment. Any testing that is completed outside of [facility] will need faxed to [phone]. We look forward to working with you on this journey, Rosa Maria Israel MD documented in this encounter [facility] 05-16-2022 Note HNO ID: [id number] Author: Rosa Maria Israel MD Service: ? [...] and diagnosed-she is on a list for ixpd-oudtz-jbl sleep study was about [employer]: -single/: -children: yes -occupation: works at [employer] -tobacco use: non-smoker -ETOH: 2 per month [...] cardiac, valvular or vascular issues *no h/o NV, CAD, CHF, no cp/palpitations Respiratory: Denies any [...] LMP?//rash/discharge/p elvic pain/menstrual (more content not included)... [facility] 05-16-2022 Note HNO ID: [id number] Author: Micaela Cavazos RD Service: ? Author Type: Registered Dietitian Type: Progress Notes Filed: 05/17/2022 1:34 PM Note Text: The [facility] Nutrition Therapy: Virtual Consult - Initial Assessment [...] limited to ADL's although she occasionally walks. [place] body weight: 128 lbs. Excess body weight: 167 lbs. Goal weight pre-op: 276 lbs. Protein needs estimated: 70 (1.2 g protein/kg IBW) Patient meets the National Institutes of Health guidelines for weight loss surgery and has [employer] ([employer]) Insurance therefore is required to complete 6 [...] Read Nutrition Guidelines section before next visit. [email or web address]?la=en Pre-op goal weight: 276 pounds Protein (more content not included)... [facility] 05-16-2022 History of Present illness Narrative This Team Access Model visit [...] and diagnosed-she is on a list for zxia-oxmxb-pvt sleep study was about [employer]chx: -single/: -children: yes -occupation: works at [employer] -tobacco use: non-smoker -ETOH: 2 per month ALL: See [facility] LABS: IMAGING: PROC: CARDIAC: MEDS: See [facility] PMH: -depression/anxiety-Prozac -has taken phentermine (1/2 tablet) [...] cardiac, valvular or vascular issues *no h/o NV, CAD, CHF, no cp/palpitations Respiratory: Denies any [...] which included preparing to see the patient, utgh-qf-ibix patient care, completing clinical documentation, obtaining and/or reviewing separately obtained history, counseling and educating the patient/family/caregiver, ordering medications, tests, or procedures, and care coordination (not separately reported). documented in this encounter [facility] 05-16-2022 History of Present illness Narrative The [facility] Nutrition Therapy: Virtual Consult - Initial Assessment [...] limited to ADL's although she occasionally walks. [place] body weight: 128 lbs. Excess body weight: 167 lbs. Goal weight pre-op: 276 lbs. Protein needs estimated: 70 (1.2 g protein/kg IBW) Patient meets the National Institutes of Health guidelines for weight loss surgery and has [employer] ([employer] Insurance therefore is required to complete 6 [...] Read Nutrition Guidelines section before next visit. [email or web address] [email or web address]?la=en Pre-op goal weight: 276 pounds Protein needs: 70 gm per day Nutrition Monitoring & Evaluation: Weight loss of 1-2 pounds per week and adherence to above recommendations Criteria: Patient update and weight check Need for Follow up: 1 month, please call [phone] MNT Billing Type: Initial Assess/15 min 2 units Signed by: Micaela Cavazos RD documented in this encounter [facility] 04-26-2022 Note HNO ID: [id number] Author: Carlos Tariq MD Service: ? Author Type: Physician Type: Progress Notes Filed: 04/26/2022 2:32 PM Note Text: Consultation requested by Dr. Noah Walton for an opinion regarding incisional hernia. [...] concerns addressed Pt appreciative of the care Carlos Tariq MD [facility] 03-21-2022 Note PROCEDURE: XR FOOT L T MIN 3 VIEWS COMPARISON: None. HISTORY: Pain in left foot FINDINGS: BONES:No fracture, acute abnormality, or significant arthropathy. SOFT TISSUES:Negative. No visible soft tissue swelling. EFFUSION:None visible. OTHER: Negative. IMPRESSION: No acute abnormality Electronically authenticated by: AYAD MALCOLM Date: 2022-03-21 19:14 [facility] 02-15-2022 Note PROCEDURE: XR ANKLE LT MIN 3 V COMPARISON: 02/07/2020 HISTORY: Pain of left ankle joint FINDINGS: BONES:No fracture, acute abnormality, or significant arthropathy. SOFT TISSUES:Negative. No visible soft tissue swelling. EFFUSION:None visible. OTHER: Negative. IMPRESSION: No acute abnormality Electronically authenticated by: AYAD MALCOML Date: 2022-02-15 07:35 [facility] Evaluation note Diagnosis Abnormal weight gain- Primary Preop testing Preoperative examination, unspecified Morbid obesity with BMI of 50.0-59.9, adult (HCC) Morbid obesity HANH (obstructive sleep apnea) Obstructive sleep apnea (adult) (pediatric) documented [facility] Diagnosis Body mass index 50.0-59.9, adult (HCC)- Primary Body Mass Index 50.0-59.9, adult Dietary counseling and surveillance Dietary surveillance and counseling documented [facility] Diagnosis Sweating abnormality Status post hysterectomy Acquired absence of both cervix and uterus Vaginal dryness Postmenopausal atrophic vaginitis [facility] Outpatient Procedure (Routine) - Pending Review Specialty Diagnoses / Procedures Referred By Contac t Referred To Contact [facility] Diagnoses Abnormal weight gain Preop testing Morbid obesity with BMI of 50.0-59.9, adult (HCC) HANH (obstructive sleep apnea) Procedures ECG COMPLETE ECG ROUTINE ECG W/LEAST 12 LDS W/I&R Rosa Maria Israel MD [address] [place] [address] [place] [address] [place] [id number] Referral ID Status Reason Start Date Expiration Date Visits Requested Visits Authorized [id number] Pending Review Auto-Generat ed Referral 05/16/2022 05/14/2023 1 1 [facility] Summary Purpose Family History No Family History [...] or prosecute any alcohol or drug abuse patient.[facility] the event this information is protected by the Federal Confidentiality of Alcohol and Drug Abuse Patient Records regulations: The Federal rules restrict any use of the information to criminally investigate or prosecute any alcohol or drug abuse patient.[facility] Reason for Visit (unrecogniz ed section and content) Reason Comments New Patient Reason Comments Patient Education Assessment Reason Comments Excessive Sweating Care Teams (unrecognized sec tion and content) Plc Engineer Relationship Specialty Start Date End Date Noah Walton, DO [address] [place] [address] Referring [employer] 04/23/22 Plc Engineer Relationship Specialty Start Date End Date Noah Walton, DO [address] [place] [address] Referring [employer] 04/23/22 Plc Engineer Relationship Specialty Start Date End Date Valerie Donato MD [address] [place] [address] PCP - General Family Medicine 01/27/23 Plc Engineer Relationship Specialty Start Date End Date Valerie Donato MD [address] [place] [address] PCP - General Family Medicine 01/27/23 INFORMATION SOURCE (unrecogn ized section and content) DATE CREATED AUTHOR 05/18/2022 [facility] DATE CREATED AUTHOR AUTHOR'S ORGANIZ ATION 01/01/2023 [facility] DATE CREATED AUTHOR AUTHOR'S ORGANIZ ATION 01/08/2024 Ferny Sandoval [facility] DATE CREATED AUTHOR AUTHOR'S ORGANIZ ATION 09/19/2024 [facility] FOR RECORDS PERTAINING TO PATIENTS WHO ARE [...] BE BASED ON THE PRIMARY CLINICAL RECORDS. [facility]. provides no warranty or guarantee of the accuracy or completeness of information in this document.
--- NOTE | 2024-10-06 16:34 | ED_ITS ---
HPI HPI - General Adult General Chief complaint: Headache Stated complaint: LIGHT HEADED, HEADACHE Time Seen by Provider: 10/06/24 16:13 Source: patient Mode of arrival: walk-in Limitations: no limitations History of Present Illness HPI narrative: Patient is a 31 patient is a 28-year-old female who presents to this emergency department for evaluation of headache in the bitemporal area associated with lightheadedness that began today. She reports nausea and photophobia. She has had no fevers, cough or congestion. She has not had any vomiting or diarrhea. No changes in her vision. No falls or injuries. She is sitting comfortably while nursing is attempting an IV. No medications taken prior to arrival. She states she does not get headaches very often, she was noted to have a prescription for Fioricet filled from her primary care provider 1 month ago, she states that headache 1 month ago was more mild. No peripheral paresthesias. No concern for . She drove herself to this emergency department despite her lightheadedness and dizziness. Related Data Home Medications ?Medication ?Instructions ?Recorded ?Confirmed zdzbrbdeml-wkffzqwoschbz-zuknlxhb cap 10/06/24 50 mg-300 mg-40 mg capsule Previous Rx's ?Medication ?Instructions ?Recorded ketorolac 10 mg tablet 10 mg PO TID PRN pain #10 tabs 10/06/24 ondansetron 4 mg disintegrating 4 mg PO Q6H PRN nausea and 10/06/24 tablet vomiting #12 tabs Allergies Allergy/AdvReac Type Severity Reaction Status Date / Time meloxicam Allergy Headache Verified 10/06/24 16:22 acetaminophen (From [place]) AdvReac Mild Nausea Verified 10/06/24 16:24 hydrocodone (From [place]) AdvReac Mild Nausea Verified 10/06/24 16:24 hydromorphone (From Dilaud[place]) AdvReac Mild Nausea Verified 10/06/24 16:22 Opioid HPI Opioid Management Most Recent Opioid Data: Last Pain Scale 8 10/06/24 16:49 10/06/24 Last MAR Pain Assessment 10/06/24 16:49 Review of Systems ROS Constitutional Denies: fever or chills Ears, nose, mouth, and throat Denies: throat pain or nasal congestion Respiratory Denies: shortness of breath or cough Gastrointestinal Reports: nausea; Denies: vomiting Musculoskeletal Denies: back pain or neck pain Integumentary/Breast Denies: rash Neurological Reports: headache and dizziness; Denies: numbness in extremities or weakness in extremities Hematologic/Lymphatic Denies: easy bruising or easy bleeding PFSH PFSH Medical History (Updated 10/06/24 @ 18:51 by MITESH Griffin) Migraine ?G43.909 - Migraine, unspecified, not intractable, without status migrainosus (ICD-10) Sleep apnea ?G47.30 - Sleep apnea, unspecified (ICD-10) Bronchitis ?J40 - Bronchitis, not specified as acute or chronic (ICD-10) Kidney stones ?N20.0 - Calculus of kidney (ICD-10) Postoperative nausea and vomiting ?R11.2 - Nausea with vomiting, unspecified (ICD-10) ?Z98.890 - Other specified postprocedural states (ICD-10) Hernia ?K46.9 - Unspecified abdominal hernia without obstruction or gangrene (ICD- 10) Pelvic pain ?R10.2 - Pelvic and perineal pain (ICD-10) Dyspareunia Dysmenorrhea ?N94.6 - Dysmenorrhea, unspecified (ICD-10) Menorrhagia ?N92.0 - Excessive and frequent menstruation with regular cycle (ICD-10) Surgical History (Updated 03/27/23 @ 13:10 by Deneen Ayala NP) History of section ?Z98.891 - History of uterine scar from previous surgery (ICD-10) History of section ?Z98.891 - History of uterine scar from previous surgery (ICD-10) H/O tubal ligation ?Z98.51 - Tubal ligation status (ICD-10) H/O lithotripsy ?Z98.890 - Other specified postprocedural states (ICD-10) History of endometrial ablation (11/16/21) ?Z98.890 - Other specified postprocedural states (ICD-10) History of cholecystectomy ?Z90.49 - Acquired absence of other specified parts of digestive tract (ICD- 10) History of ankle surgery ?Z98.890 - Other specified postprocedural states (ICD-10) Family History (Updated 03/27/23 @ 13:10 by Deneen Ayala NP) Other Family history of DVT Family history of cancer Family history of heart disease Family history of hypertension Social History Within the past year, how often did you have a drink containing alcohol: monthly or less Smoking status: Never smoker Non-prescribed substance use: denies use 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 Highest level of school completed/degree received: high school graduate Little interest or pleasure in doing things: not at all Feeling down, depressed, or hopeless: not at all Exam Narrative Exam Narrative: Gen.: Awake, alert, in no distress Head: Normocephalic, atraumatic ENT: Moist mucous membranes, no meningismus or nuchal rigidity Respiratory: No respiratory distress, lungs clear bilaterally Cardio: Regular rate and rhythm Gastrointestinal: Abdomen is soft, nondistended and nontender to palpation Extremities: Moves extremities equally Psych: Normal mood and affect Neuro: No focal neuro deficit Skin: Warm, dry, intact Constitutional Vital Signs, click to edit/add: Last Vital Signs Temp 98.1 F 10/06/24 16:16 Pulse 100 H 10/06/24 17:10 Resp 18 10/06/24 17:10 BP 158/116 H 10/06/24 17:10 Pulse Ox 95 10/06/24 17:10 O2 Del Method Room Air 10/06/24 16:16 Course Vital Signs Vital signs: Vital Signs Temperature 98.1 F 10/06/24 16:16 Pulse Rate 95 H 10/06/24 16:16 Respiratory Rate 16 10/06/24 16:16 Blood Pressure 144/92 H 10/06/24 16:16 Pulse Oximetry 98 10/06/24 16:16 Oxygen Delivery Method Room Air 10/06/24 16:16 Temperature 98.1 F 10/06/24 16:16 Pulse Rate 100 H 10/06/24 17:10 Respiratory Rate 18 10/06/24 17:10 Blood Pressure 158/116 H 10/06/24 17:10 Pulse Oximetry 95 10/06/24 17:10 Oxygen Delivery Method Room Air 10/06/24 16:16 Medical Decision Making MDM Narrative Medical decision making narrative: Patient treated with IV fluids, Toradol, Reglan and Benadryl with improvement. She tolerated oral fluids. CT is limited as the patient was not able to remove her earrings but of the CT that is able to be evaluated, there is no acute abnormality. Patient will be placed on Toradol and Zofran for home. Follow-up with PCP and return to the emergency department if symptoms change or worsen. SUPERVISED APC VISIT, PHYSICIAN ATTESTATION: Based on the medical record the care appears appropriate. ? Medical Records Medical records reviewed: Yes I reviewed the patient's medical records Lab Data Lab results reviewed: Yes I reviewed the patient's lab results Labs: Lab Results 10/06/24 10/06/24 10/06/24 Range/Units 16:45 16:48 17:28 WBC 9.8 (4.0-11.0) 10^3/uL RBC 4.39 (4.20-5.40) 10^6/uL Hgb 13.4 (12.0-16.0) g/dL Hct 40.5 (36.0-48.0) % MCV 92.3 (81.0-99.0) fL MCH 30.5 (26.7-34.0) pg MCHC 33.1 (29.9-35.2) g/dL RDW 12.4 (11.0-15.0) % Plt Count 222 (150-450) 10^3/uL MPV 9.9 (9.5-13.5) fL Neut % (Auto) 69.2 (43.0-75.0) % Lymph % (Auto) 23.8 (20.5-60.0) % [place]ry % (Auto) 6.5 (1.7-12.0) % Eos % (Auto) 0.1 L (0.9-7.0) % Baso % (Auto) 0.2 (0.2-2.0) % Neut # (Auto) 6.8 H (1.4-6.5) 10^3/uL Lymph # (Auto) 2.3 (1.2-3.8) 10^3/uL Hendry # (Auto) 0.6 (0.3-0.8) 10^3/uL Eos # (Auto) 0.0 (0.0-0.7) 10^3/uL Baso # (Auto) 0.0 (0.0-0.1) 10^3/uL Abs Immat Gran (auto) 0.02 (0.00-0.03) 10^3/uL Imm/Tot Granulo (auto) 0.2 (0.0-0.5) % Sodium 138 (136-145) mmol/L Potassium 3.3 L (3.5-5.1) mmol/L Chloride 107 (98-107) mmol/L Carbon Dioxide 24.3 (21.0-32.0) mmol/L Anion Gap 10.0 BUN 18.0 (7.0-18.0) mg/dL Creatinine 0.72 (0.55-1.02) mg/dL Est GFR ( Amer) >60 (>=60 mL/min/1.73m^2) Est GFR (Non-Af Amer) >60 (>=60 mL/min/1.73m^2) BUN/Creatinine Ratio 25.0 Glucose 89 (74-106) mg/dL Calcium 8.0 L (8.5-10.1) mg/dL Serum HCG, Qual Negative (NEGATIVE) Influenza Type A Ag Negative Influenza Type B Ag Negative SARS-CoV-2 Ag (CV2AG) Negative (NEGATIVE) Imaging Data CT scan - head: Attestation: I have reviewed the pertinent imaging results. Radiologist's impression: ITS Impressions Head CT 10/06/24 17:44 IMPRESSION: Degradation of image quality secondary to beam hardening artifact from earrings. Patient was unable to remove earrings. The inferior aspect of the brain is especially obscured. Within constraints of exam, there is no convincing acute intracranial hemorrhage or acute intracranial process. If symptoms continue, MRI of the brain could be obtained. Electronically authenticated by: AKIN BARRETO Date: 10/06/2024 18:45 Discharge Plan Discharge Chief Complaint: Headache Clinical Impression: Headache Patient Disposition: Home, Self-Care Time of Disposition Decision: 18:51 Condition: Good Prescriptions / Home Meds: New ketorolac 10 mg tablet 10 mg PO TID PRN (Reason: pain) Qty: 10 0RF ondansetron 4 mg tablet,disintegrating 4 mg PO Q6H PRN (Reason: nausea and vomiting) Qty: 12 0RF No Action efrlpfrqrf-rblqntpmxagmq-dyxs 50-300-40 mg capsule Print Language: Indonesian Instructions: Acute Headache (ED) Referrals: Rojelio Donato MD [Primary Care Provider] - 1 week
[2024-10-06] MEDS: MECLIZINE HCL 12.5 MG TABLET 25 MG PO (16:49)
[2024-10-06] MEDS: METOCLOPRAMIDE HCL 10 MG/2 ML VIAL IVP (16:49)
[2024-10-06] MEDS: KETOROLAC TROMETHAMINE 30 MG/ML VIAL IVP (16:49)
[2024-10-06] MEDS: DIPHENHYDRAMINE HCL 50 MG/ML VIAL 25 MG IV (16:50)
[2024-10-06] MEDS: 0.9 % SODIUM CHLORIDE 1,000 ML 1000 ML IV (16:50)
[2024-10-06 17:10] VITALS: BP 158/116; PULSE 100; O2SAT 95
[2024-10-06 17:20] LABS: HCG Qualitative NEGATIVE (NEGATIVE); Internal Control Within Normal Limits
[2024-10-06 17:24] LABS: Influenza Virus A Antigen Negative; Influenza Virus B Antigen Negative; Internal Control Within Normal Limits; SARS-CoV-2 Ag NEGATIVE (NEGATIVE)
--- NOTE | 2024-10-06 17:44 | CT_ITS ---
[address] [address] Patient Name: ABDIRAHMAN VARGAS MRN: [id number] date: 1995 Sex: F Assigned Patient Location: ER Current Patient Location: Accession/Order Number: [id number] Exam Date: 10/06/2024 17:42 Report Date: 10/06/2024 18:45 At the request of: DONAVON WHITMAN Procedure: CT head/brain wo con EXAMINATION: CT head/brain wo con HISTORY: Headache COMPARISON: None. TECHNIQUE: CT head without intravenous contrast. Dose reduction techniques were achieved by using: automated exposure control and/or adjustment of mA and /or kV according to patient size and/or use of iterative reconstruction technique. FINDINGS: Degradation of image quality secondary to beam hardening artifact from earrings. Patient was unable to remove earrings. The ventricles and sulci are within normal limits in size and configuration for age. There is no evidence for acute intracranial hemorrhage. There are no foci of abnormal parenchymal attenuation. There is no mass effect or midline shift. There are no abnormal extraaxial fluid collections. CT/CT head/brain wo con IMPRESSION: Degradation of image quality secondary to beam hardening artifact from earrings. Patient was unable to remove earrings. The inferior aspect of the brain is especially obscured. Within constraints of exam, there is no convincing acute intracranial hemorrhage or acute intracranial process. If symptoms continue, MRI of the brain could be obtained. Electronically authenticated by: AIKN BARRETO Date: 10/06/2024 18:45
[2024-10-06 17:45] LABS: Basophils Percent Auto 0.2 % (0.2-2.0); Eosinophils Percent Auto 0.1 % (0.9-7.0); Hematocrit 40.5 % (36.0-48.0); Hemoglobin 13.4 g/dL (12.0-16.0); Immature Granulocytes Abs Auto 0.02 10^3/uL (0.00-0.03); Immature Granulocytes Pct Auto 0.2 % (0.0-0.5); Lymphocytes Absolute Auto 2.3 10^3/uL (1.2-3.8); Lymphocytes Percent Auto 23.8 % (20.5-60.0); Mean Corpuscular HGB Conc 33.1 g/dL (29.9-35.2); Mean Corpuscular Hemoglobin 30.5 pg (26.7-34.0); Mean Corpuscular Volume 92.3 fL (81.0-99.0); Mean Platelet Volume 9.9 fL (9.5-13.5); Monocytes Absolute Auto 0.6 10^3/uL (0.3-0.8); Monocytes Percent Auto 6.5 % (1.7-12.0); Neutrophils Absolute Auto 6.8 10^3/uL (1.4-6.5); Neutrophils Percent Auto 69.2 % (43.0-75.0); Platelet Count 222 10^3/uL (150-450); Red Blood Count 4.39 10^6/uL (4.20-5.40); Red Cell Distribution Width 12.4 % (11.0-15.0); White Blood Count 9.8 10^3/uL (4.0-11.0)
[2024-10-06 18:01] LABS: Carbon Dioxide 24.3 mmol/L (21.0-32.0); Chloride 107 mmol/L (98-107); Estimated GFR (African America >60 (>=60 mL/min/1.73m^2); Estimated GFR (Non-African Ame >60 (>=60 mL/min/1.73m^2); Glucose 89 mg/dL (74-106); Potassium 3.3 mmol/L (3.5-5.1); Sodium 138 mmol/L (136-145)
== END 2024-10-06 18:57 | disposition home or self-care (01) ==
PROVIDERS: Physician Assistant; Emergency Provider Emergency Medicine; PCP Family Medicine
DX: R51.9 Headache, unspecified (principal); Z98.51 Tubal ligation status; Z90.49 Acquired absence of other specified parts of digestive tract
CPT/HCPCS: 36415; 70450; 80048; 84703; 85025; 87804; 87811; 96361; 96374; 96375; 99285; J1200; J1885; J2765

== ENCOUNTER 2024-12-21 19:42 | Outpatient (REF) | payer OTHER, SELFPAY ==
--- OUTSIDE RECORDS SUMMARY | 2024-12-21 19:51 | XMS_ITS | CCD ---
Author Organization [facility] Care Team Providers Care Weather Reporter Name Role Phone Noah Walton DO Unavailable SEAMUS Chaves, DR PADILLA Primary Care Unavailable TARA SAN Admitting Unavailable TARA SAN Attending Unavailable TARA SAN Consulting Unavailable SEAMUS ., DR PADILLA Primary Care Unavailable UYLSSES ., MIMI STEEN Attending Unavailable ULYSSES .MIMI Admitting Unavailable GUY, AMAR Admitting Unavailable GUYGELY TOROAR Attending Unavailable SEAMUS ., DR PADILLA Primary Care Unavailable HOTrevin ., DR PADILLA Primary Care Unavailable MARKER ., DR BECERRA Admitting Unavailable MARKER ., DR BECERRA Attending Unavailable GRECHNY ., MITESH RAPHAEL Consulting Unavailabl e MARKER ., DR BECERRA Consulting Unavailable PARNELLYENI Lopez Consulting Unavailable GRECHNY ., MITESH RAPHAEL Consulting Unavailbalwinder e TARA SAN Attending Unavailable TARA SAN Admitting Unavailable HOY ., DR PADILLA Primary Care Unavailable TARA SAN Consulting Unavailable ISH EDGAR Admitting Unavailable ISH EDGAR Attending Unavailable SEAMUS ., DR PADILLA Primary Care Unavailable YUN, DR AYAD Matamoros Consulting Unavailable ISH EDGAR Consulting Unavailable ISABELLE ., DR ESTEBAN Consulting Unavailable HOY ., DR PADILLA Primary [...] Unavailable HOY ., DR PADILLA Admitting Unavailable YUN, DR AYAD Matamoros Consulting Unavailable ISABELLE ., DR ESTEBAN Admitting Unavailable ISABELLE ., DR ESTEBAN Attending Unavailable HOY ., DR PADILLA Primary Care Unavailable ISABELLE ., DR ESTEBAN Consulting Unavailable AYAD BIGGS Consulting Unavailable ISH EDGAR Admitting Unavailable ISH EDGAR Attending Unavailable HOY ., DR PADILLA Primary Care Unavailable HEYWORTH, DR AYAD Matamoros Consulting Unavailable ISH EDGAR Consulting Unavailable NATALIE BOX Consulting Unavailable MERLE ., VIN Attending Unavailable [...] SEAMUS ., DR PADILLA Primary Care Unavailable Ish Hector Consulting Unavailable Jolene Burdick Consulting Unavailable KERA COONEY Attending Unavailable KERA COONEY Attending Unavailable Carmen Coello Attending Unavailable Valerie Donato MD Primary Care Provider [phone] NOAH WALTON Attending Unavailable Allergies Allergy Classification Reported Allergen(s) Allergy Type Date of Onset Reaction(s) Facility (2 sources) meloxicam Drug Allergy 2 Other: See Comments [facility] (2 sources) Acetaminophen / HYDROcodone; Translations: [[place]ie] Drug Allergy [facility] (2 sources) HYDROmorphone; Translations: [Dilaudid] Drug Allergy [facility] (1 source) meloxicam Drug Allergy [facility] (4 sources) meloxicam Drug Allergy 3 Headache [facility] Work Phone: Medications Current Medications Medication Drug Class(es) Dates Sig (Normalized) Sig (Original) 168 hr estradiol 0.18471 mg/hr transdermal system (3 sources) Estrogen Start: 09-13-2024 End: 12-12-2024 estradiol (Climara) 0.05 MG/24HR Indications: Sweating abnormality , Status post hysterectomy , Vaginal dryness Place 1 patch over 7 days on the skin 1 (one) time per week 12 patch 3 09/13/2024 Active phentermine hydrochloride 37.5 mg oral tablet (5 sources) Sympathomimetic Amine Anorectic Start: 08-13-2024 take 1 tablet by mouth before mealtime phentermine (Adipex-P) 37.5 MG tablet Take 37.5 mg by mouth in the morning. Take before meals. 08/13/2024 Active Start: 04-18-2022 take 1 capsule by mo uth once daily Phentermine HCl 37.5 mg capsule Take 37.5 mg by mouth once daily. 0 04/18/2022 Active Comment on above: Take 37.5 mg by mout h once daily. Completed/Discontinued Medications Medication Drug Class(es) Dates Sig (Normalized) Sig (Original) acetaminophen 325 mg / butalbital 50 mg / caffeine 40 mg oral capsule (6 sources) Barbiturate, Central Nervous System Stimulant, Methylxanthine [...] oral tablet (2 sources) Opioid Agonist Start: 022 take 1 tablet by mouth every six hours as needed acetaminophen-codeine (TYLENOL-COD #3) 300-30 mg per tablet Take 1 tablet by mouth every 6 hours as needed. 0 04/22/2022 Active Comment on above: Take 1 tablet by viri every 6 hours as needed. [id number] 200 actuat albuterol 0.09 mg/actuat metered dose inhaler (3 sources) beta2-Adrenergic Agonist Start: 023 End: 025 take 2 puff(s) by inhalation every six hours Ventolin HFA 108 (90 Base) MCG/ACT inhaler Inhale 2 puffs every 6 (six) hours if needed. 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 Sincerely, [facility] [address], [place] [address] [facility] ED Note-Physicianon 08-20-20 ED Note-Physician [id number]. [id number] [facility] Screenson 08-20-2023 Screens [id number] 20 [id number] 0TIFF [facility] Ambulatory Visit Summaryon 1 10-20-2022 Ambulatory Visit Summary CONNIE SALCIDO :1995 Visit Date:08/19/2023 Ambulatory Visit Instructions Your Diagnosis Kidney stones Asymptomatic microscopic hematuria Mixed incontinence OAB (overactive bladder) Tests Performed Urnls Dip Stick Auto w/o Microscopy POC 56074 Your Care Team Attending Physician - ADÁN [...] Follow-Up Appointments Friday 2:30 PM EST With: EROS BLACKBURN, KERA Morris Where: [facility] Patient Educationon 08-19-20 Patient Education Obstetrics and [...] health care provider. General instructions ? Take gupn-zvv-txnwnbr and prescription medicines only as told by [...] monitor yo (more content not included)... Normal [facility] Urology Office/Clinic Noteon 08-19-2023 Urology Office/Clinic Note Chief Complaint 1yr HPI Staff PRW pt 1yr KUB *pt did not get KUB done. Was not aware one was ordered. However did get CT done @ [facility] 08/14/23 DX: Microscopic Hematuria, Hx of Kidney Stones, Nocturia, Stress Incontinence & Frequency Last Stone Procedure 01/25/21 ([facility]) Denies flank pain. Has been lower abdominal discomfort for the past week. Did go to [facility] 08/14/23. frequency during the day, getting [...] that she is aware of. Seen at [facility] for RLQ abdominal discomfort 08/14/23 - [...] day(s), # 90 tab(s), Refills(s) 0, Pharmacy: [id number], 154, cm, 08/19/23 15:05:00 EST, Height/Length Dosing, 129.5, kg, 08/19/23 15:05:00 EST, Weight Dosing Follow-up No qualifying data available Patient Education Kidney Stones, Hhtk-lj-Gupy Hematuria, Adult Overactive Bladder, Adult Problem List/Past [...] Oral, Daily Allergies Dilaudid (Nausea and vomiting) Bowie (Nausea and vomiting) Social History Alcohol - Denies Alcohol Use, 01/19/2021 Substance Abuse Tobacco Never (less than 100 in lifetime) Tobacco Use:. Never Smokeless Tobacco Use:. Household tobacco concerns: No. Yes, 08/19/2023 Family History Heart disease: Mother. Kidney stone: Mother. Migraine: Mother. Immunizations Vaccine Date Status influenza virus vaccine, inactivated 06/18/2022 Recorded SARS-CoV-2 (COVID-19) [id number] 06/18/2022 Recorded SARSCoV2 mRNA(bgqdzivzx-tggw-lp cros) vac 12/03/2021 Recorded SARSCoV2 mRNA(gzajdvulv-kdgk-tf cros) vac 10/25/2021 R (more content not included)... Normal [facility] Comment on above: Result Comment: Elec tronically Signed By: ADÁN Coello APRN, [place] X\.br\Date and Time Signed: 08/19/23 16:30 EST PAP ACOG PANEL 2: 21 to 29on 12-24-2022 . . Normal [facility] Comment on above: Performed By: #### L ACT #### [facility] [address] [address] [address] Tho Hardy Age Gdln ACOG Testing - [facility] Comment on above: Performed By: #### L ACT #### [facility] [address] [address] [address] Tho Hardy DIAGNOSIS: Comment [facility] Comment on above: Result Comment: NEGA TIVE FOR INTRAEPITHELIAL LESION OR MALIGNANCY. Performed By: #### L ACT #### [facility] [address] [address] [address] Tho Hardy Methodology: Comment [facility] Comment on above: Result Comment: This liquid based ThinPrep(R) pap test was screened with the use of an image guided system. Performed By: #### L ACT #### [facility] [address] [place] [address] Dr. Tho Hardy Note: Comment [facility] Comment on above: Result Comment: The Pap smear is a screening test designed to aid in the detection of premalignant and malignant conditions of the uterine cervix. It is not a diagnostic procedure and should not be used as the sole means of detecting cervical cancer. Both false-positive and false-negative reports do occur. . Performed By: #### L ACT #### [facility] [address] [place] [address] Dr. Tho Hardy Performed by: Comment Normal [facility] Comment on above: Result Comment: Julieta Choudhary, Postbed Stitcher (ASCP) Performed By: #### L ACT #### [facility] [address] [address] [address] Tho Hardy Reflex Criteria: Comment [facility] Comment on above: Result Comment: The HPV DNA reflex criteria were not met with this specimen result therefore, no HPV testing was performed. . Performed By: #### L ACT #### [facility] [address] [place] [address] Dr. Tho Hardy Specimen adequacy: Comment [facility] Comment on above: Result Comment: Sati sfactory for evaluation. Endocervical and/or squamous metaplastic cells (endocervical component) are present. Performed By: #### L ACT #### [facility] [address] [place] [address] Dr. Tho Hardy XR RIBS LT PA [...] AYAD MALCOLM Date: 2022-11-14 07:04 Normal [facility] XR ANKLE LT MIN 3 Von 2022 XR ANKLE LT MIN 3 V EXAM: XR ANKLE LT RI N 3 V HISTORY: Pain of left [...] NISREEN DUNNE Date: 2022 15:34 Normal [facility] CBC AUTO DIFFon 10-14-2022 BASO # 0.0 103/ul Normal 0.0-0.1 [facility] Comment on above: Performed By: #### C BC #### [facility] [address] [place], [place] [address] Dr. Tho Hardy Basophils/100 WBC (Bld) 0.3 % Normal 0.2-2.0 [facility] Comment on above: Performed By: #### C BC #### [facility] [address] [place] [address] Dr. Tho Hardy EO # 0.1 103/ul Normal 0.0-0.7 [facility] Comment on above: Performed By: #### C BC #### [facility] [address] [place] [address] Dr. Tho Hardy Eosinophils/100 WBC (Bld) 1.5 % Normal 0.9-7.0 [facility] Comment on above: Performed By: #### C BC #### [facility] [address] [place] [address] Dr. Tho Hardy Erythrocyte distribution width (RBC) [Ratio] 12.7 % Normal 11.0-15.0 [facility] Comment on above: Performed By: #### C BC #### [facility] [address] [place] [address] Dr. Tho Hardy Hematocrit (Bld) [Volume fraction] 44.9 % Normal 36.0-48.0 [facility] Comment on above: Performed By: #### C BC #### [facility] [address] [place] [address] Dr. Tho Hardy Hemoglobin (Bld) [Mass/Vol] 14.3 g/dL Normal 12.0-16.0 [facility] Comment on above: Performed By: #### C BC #### [facility] [address] [place] [address] Dr. Tho Hardy IG # 0.02 10e3/ul Normal 0.00-0.03 [facility] Comment on above: Performed By: #### C BC #### [facility] [address] [place] [address] Dr. Tho Hardy IG % 0.3 % Normal 0.0-0.5 [facility] Comment on above: Performed By: #### C BC #### [facility] [address] [place] [address] Dr. Tho Hardy LYMPH # 1.9 103/ul Normal 1.2-3.8 [facility] Comment on above: Performed By: #### C BC #### [facility] [address] [place] [address] Dr. Tho Hardy Lymphocytes/100 WBC (Bld) 27.7 % Normal 20.5-60.0 [facility] Comment on above: Performed By: #### C BC #### [facility] [address] [place] [address] Dr. Tho Hardy MANUAL DIFF REQ NO Normal [facility] Comment on above: Performed By: #### C BC #### [facility] [address] [place] [address] Dr. Tho Hardy MCH (RBC) [Entitic mass] 30.3 pg Normal 26.7-34.0 [facility] Comment on above: Performed By: #### C BC #### [facility] [address] [place] [address] Dr. Tho Hardy MCHC (RBC) [Mass/Vol] 31.8 g/dL Normal 29.9-35.2 [facility] Comment on above: Performed By: #### C BC #### [facility] [address] [place] [address] Dr. Tho Hardy MCV (RBC) [Entitic vol] 95.1 fL Normal 81.0-99.0 [facility] Comment on above: Performed By: #### C BC #### [facility] [address] [place] [address] Dr. Tho Hardy MONO # 0.5 103/ul Normal 0.3-0.8 [facility] Comment on above: Performed By: #### C BC #### [facility] [address] [place] [address] Dr. Tho Hardy Monocytes/100 WBC (Bld) 7.6 % Normal 1.7-12.0 [facility] Comment on above: Performed By: #### C BC #### [facility] [address] [place] [address] Dr. hTo Hardy NEUT # 4.2 103/ul Normal 1.4-6.5 [facility] Comment on above: Performed By: #### C BC #### [facility] [address] [place] [address] Dr. Tho Hardy Neutrophils/100 WBC (Bld) 62.6 % Normal 43.0-75.0 [facility] Comment on above: Performed By: #### C BC #### [facility] [address] [place] [address] Dr. Tho Hardy Platelet mean volume (Bld) [Entitic vol] 10.0 fL Normal 9.5-13.5 [facility] Comment on above: Performed By: #### C BC #### [facility] [address] [place] [address] Dr. Tho Hardy PLT 242 103/ul Normal 150-450 [facility] Comment on above: Performed By: #### C BC #### [facility] [address] [place] [address] Dr. Tho Hardy RBC 4.72 106/ul Normal 4.20-5.40 [facility] Comment on above: Performed By: #### C BC #### [facility] [address] [place] [address] Dr. Tho Hardy WBC 6.7 103/ul Normal 4.0-11.0 [facility] Comment on above: Performed By: #### C BC #### [facility] [address] [place] [address] Dr. Tho Hardy ER URINE PROFILEon 3 Bilirubin Ql (U) Negative Normal NEGATIVE [facility] Comment on above: Performed By: #### L ACT #### [facility] [address] [place] [address] Dr. Tho Hardy Clarity (U) CLEAR Normal CLEAR [facility] Comment on above: Performed By: #### L ACT #### [facility] [address] [place] [address] Dr. Tho Hardy Color (U) YELLOW Normal YELLOW [facility] Comment on above: Performed By: #### L ACT #### [facility] [address] [place] [address] Dr. Tho RIVERA A micrscopic examination will be performed if indicated. Normal [facility] Comment on above: Performed By: #### L ACT #### [facility] [address] [place] [address] Dr. Tho Hardy Glucose Ql (U) Negative Normal NEGATIVE [facility] Comment on above: Performed By: #### L ACT #### [facility] [address] [place] [address] Dr. Tho Hardy Hemoglobin Ql (U) MODERATE Abnormal NEGATIVE [facility] Comment on above: Performed By: #### L ACT #### [facility] [address] [place] [address] Dr. Tho Hardy Ketones Ql (U) Negative Normal NEGATIVE [facility] Comment on above: Performed By: #### L ACT #### [facility] [address] [place] [address] Dr. Tho Hardy LEUKOCYTES Negative Normal NEGATIVE [facility] Comment on above: Performed By: #### L ACT #### [facility] [address] [place] [address] Dr. Tho Hardy Nitrite Ql (U) Negative Normal NEGATIVE [facility] Comment on above: Performed By: #### L ACT #### [facility] [address] [place] [address] Dr. Tho Hardy pH (U) 5.5 [pH] Normal 5-9 [facility] Comment on above: Performed By: #### L ACT #### [facility] [address] [place] [address] Dr. Tho Hardy SPEC GRAVITY >=1.030 Abnormal 1.005-<=1.025 [facility] Comment on above: Performed By: #### L ACT #### [facility] [address] [place] [address] Dr. Tho Hadry UA PROTEIN Negative Normal NEGATIVE/ TRACE [facility] Comment on above: Performed By: #### L ACT #### [facility] [address] [place] [address] Dr. Tho Hardy UR MICRO IND INDICATED Normal [facility] Comment on above: Performed By: #### L ACT #### [facility] [address] [address] [address] Tho Hardy Urobilinogen Qn (U) 0.2 {Roland'U}/dL Normal 0.2 - 1. 0 [facility] Comment on above: Performed By: #### L ACT #### [facility] [address] [address] [address] Tho Hardy URon 10-14-2022 , QUAL Negative Normal NEGATIVE [facility] Comment on above: Performed By: #### L ACT #### [facility] [address] [place] [address] Dr. Tho Hardy PROF CHEM 8 (BAS METB)on Anion gap [Moles/Vol] 12.8 mmol/L Normal [facility] Comment on above: Performed By: #### B MP #### [facility] [address] [place] [address] Dr. Tho Hardy Calcium [Mass/Vol] 8.7 mg/dL Normal 8.5-10.1 [facility] Comment on above: Performed By: #### B MP #### [facility] [address] [place] [address] Dr. Tho Hardy Chloride [Moles/Vol] 104 mmol/L Normal 98-107 [facility] Comment on above: Performed By: #### B MP #### [facility] [address] [place] [address] Dr. Tho Hardy CO2 [Moles/Vol] 28.4 mmol/L Normal 21.0-32.0 [facility] Comment on above: Performed By: #### B MP #### [facility] [address] [place] [address] Dr. Tho Hardy Creatinine [Mass/Vol] 0.65 mg/dL Normal 0.55-1.02 [facility] Comment on above: Performed By: #### B MP #### [facility] [address] [place] [address] Dr. Tho Hardy EGFR-AF TURKMEN >60 Normal >=60 [facility] Comment on above: Performed By: #### B MP #### [facility] [address] [address] [address] Tho Hardy EGFR-NON AF TURKMEN >60 Normal >=60 [facility] Comment on above: Performed By: #### B MP #### [facility] [address] [address] [address] Tho Hardy Glucose [Mass/Vol] 86 mg/dL Normal 74-106 [facility] Comment on above: Performed By: #### B MP #### [facility] [address] [address] [address] Tho Hardy Potassium [Moles/Vol] 3.2 mmol/L Critically low 3.5-5.1 [facility] Comment on above: Performed By: #### B MP #### [facility] [address] [place] [address] Dr. Tho Hardy Sodium [Moles/Vol] 142 mmol/L Normal 136-145 [facility] Comment on above: Performed By: #### B MP #### [facility] [address] [place] [address] Dr. Tho Hardy Urea nitrogen [Mass/Vol] 11.0 mg/dL Normal 7.0-18.0 [facility] Comment on above: Performed By: #### B MP #### [facility] [address] [place] [address] Dr. Tho Hardy Urea nitrogen/Creatinine [Mass ratio] 16.9 mg/mg Normal [facility] Comment on above: Performed By: #### B MP #### [facility] [address] [place] [address] Dr. Tho Hardy URINE MICROSCOPIC ONLYon BACTERIA TRACE Abnormal NONE SEEN [facility] Comment on above: Performed By: #### L ACT #### [facility] [address] [place] [address] Dr. Tho Hardy Bacteria identified Cx Nom (U) NOT INDICATED Normal [facility] Comment on above: Performed By: #### L ACT #### [facility] [address] [place] [address] Dr. Tho Hardy CAST NONE SEEN Normal NONE SEEN [facility] Comment on above: Performed By: #### L ACT #### [facility] [address] [place] [address] Dr. Tho Hardy Crystals LM Nom (Urine sed) NONE SEEN Normal NONE SEEN [facility] Comment on above: Performed By: #### L ACT #### [facility] [address] [place] [address] Dr. Tho Hardy Epithelial cells LM Ql (Urine sed) FEW Abnormal NONE SEEN /RARE [facility] Comment on above: Performed By: #### L ACT #### [facility] [address] [place] [address] Dr. Tho Hardy MUCOUS NONE SEEN Normal NONE SEEN [facility] Comment on above: Performed By: #### L ACT #### [facility] [address] [place] [address] Dr. Tho Hardy RBC 0-2 Normal 0-2 [facility] Comment on above: Performed By: #### L ACT #### [facility] [address] [place] [address] Dr. Tho Hardy WBC NONE SEEN Normal NONE SEEN [facility] Comment on above: Performed By: #### L ACT #### [facility] [address] [place] [address] Dr. Tho Hardy CBC AUTO DIFFon 09-26-2022 BASO # 0.0 103/ul Normal 0.0-0.1 [facility] Comment on above: Performed By: #### L ACT #### [facility] [address] [place] [address] Dr. Tho Hardy Basophils/100 WBC (Bld) 0.1 % Critically low 0.2-2.0 [facility] Comment on above: Performed By: #### L ACT #### [facility] [address] [place] [address] Dr. Tho Hardy EO # 0.2 103/ul Normal 0.0-0.7 [facility] Comment on above: Performed By: #### L ACT #### [facility] [address] [place] [address] Dr. Tho Hardy Eosinophils/100 WBC (Bld) 2.3 % Normal 0.9-7.0 [facility] Comment on above: Performed By: #### L ACT #### [facility] [address] [place] [address] Dr. Tho Hardy Erythrocyte distribution width (RBC) [Ratio] 12.7 % Normal 11.0-15.0 [facility] Comment on above: Performed By: #### L ACT #### [facility] [address] [place] [address] Dr. Tho Hardy Hematocrit (Bld) [Volume fraction] 43.4 % Normal 36.0-48.0 [facility] Comment on above: Performed By: #### L ACT #### [facility] [address] [place] [address] Dr. Tho Hardy Hemoglobin (Bld) [Mass/Vol] 14.6 g/dL Normal 12.0-16.0 [facility] Comment on above: Performed By: #### L ACT #### [facility] [address] [place] [address] Dr. Tho Hardy IG # 0.02 10e3/ul Normal 0.00-0.03 [facility] Comment on above: Performed By: #### L ACT #### [facility] [address] [place] [address] Dr. Tho Hardy IG % 0.2 % Normal 0.0-0.5 [facility] Comment on above: Performed By: #### L ACT #### [facility] [address] [place] [address] Dr. Tho Hardy LYMPH # 1.8 103/ul Normal 1.2-3.8 [facility] Comment on above: Performed By: #### L ACT #### [facility] [address] [place] [address] Dr. Tho Hardy Lymphocytes/100 WBC (Bld) 20.5 % Normal 20.5-60.0 [facility] Comment on above: Performed By: #### L ACT #### [facility] [address] [place] [address] Dr. Tho Hardy MANUAL DIFF REQ NO Normal [facility] Comment on above: Performed By: #### L ACT #### [facility] [address] [place] [address] Dr. Tho Hadry MCH (RBC) [Entitic mass] 30.4 pg Normal 26.7-34.0 [facility] Comment on above: Performed By: #### L ACT #### [facility] [address] [place] [address] Dr. Tho Hardy MCHC (RBC) [Mass/Vol] 33.6 g/dL Normal 29.9-35.2 [facility] Comment on above: Performed By: #### L ACT #### [facility] [address] [place] [address] Dr. Tho Hardy MCV (RBC) [Entitic vol] 90.4 fL Normal 81.0-99.0 [facility] Comment on above: Performed By: #### L ACT #### [facility] [address] [place] [address] Dr. Tho Hardy MONO # 0.5 103/ul Normal 0.3-0.8 [facility] Comment on above: Performed By: #### L ACT #### [facility] [address] [place] [address] Dr. Tho Hardy Monocytes/100 WBC (Bld) 5.5 % Normal 1.7-12.0 [facility] Comment on above: Performed By: #### L ACT #### [facility] [address] [place] [address] Dr. Tho Hardy NEUT # 6.2 103/ul Normal 1.4-6.5 [facility] Comment on above: Performed By: #### L ACT #### [facility] [address] [place] [address] Dr. Tho Hardy Neutrophils/100 WBC (Bld) 71.4 % Normal 43.0-75.0 [facility] Comment on above: Performed By: #### L ACT #### [facility] [address] [place] [address] Dr. Tho Hardy Platelet mean volume (Bld) [Entitic vol] 9.5 fL Normal 9.5-13.5 [facility] Comment on above: Performed By: #### L ACT #### [facility] [address] [place] [address] Dr. Tho Hardy PLT 234 103/ul Normal 150-450 [facility] Comment on above: Performed By: #### L ACT #### [facility] [address] [place] [address] Dr. Tho Hardy RBC 4.80 106/ul Normal 4.20-5.40 [facility] Comment on above: Performed By: #### L ACT #### [facility] [address] [place] [address] Dr. Tho Hardy WBC 8.7 103/ul Normal 4.0-11.0 [facility] Comment on above: Performed By: #### L ACT #### [facility] [address] [place] [address] Dr. Tho Hardy ER URINE PROFILEon 3 Bilirubin Ql (U) Negative Normal NEGATIVE [facility] Comment on above: Performed By: #### P REGU, ERUR, UMICRO #### [facility] [address] [place] [address] Dr. Tho Hardy Clarity (U) CLEAR Normal CLEAR [facility] Comment on above: Performed By: #### P REGU, ERUR, UMICRO #### [facility] [address] [place] [address] Dr. Tho Hardy Color (U) YELLOW Normal YELLOW [facility] Comment on above: Performed By: #### P REGU, ERUR, UMICRO #### [facility] [address] [place] [address] Dr. Tho Hardy ERUAHD A micrscopic examination will be performed if indicated. Normal [facility] Comment on above: Performed By: #### P REGU, ERUR, UMICRO #### [facility] [address] [place] [address] Dr. Tho Hardy Glucose Ql (U) Negative Normal NEGATIVE [facility] Comment on above: Performed By: #### P REGU, ERUR, UMICRO #### [facility] [address] [address] [address] Tho Hardy Hemoglobin Ql (U) SMALL Abnormal NEGATIVE [facility] Comment on above: Performed By: #### P REGU, ERUR, UMICRO #### [facility] [address] [address] [address] Tho Hardy Ketones Ql (U) Negative Normal NEGATIVE [facility] Comment on above: Performed By: #### P REGU, ERUR, UMICRO #### [facility] [address] [address] [address] Tho Hardy LEUKOCYTES Negative Normal NEGATIVE [facility] Comment on above: Performed By: #### P REGU, ERUR, UMICRO #### [facility] [address] [address] [address] Tho Hardy Nitrite Ql (U) Negative Normal NEGATIVE [facility] Comment on above: Performed By: #### P REGU, ERUR, UMICRO #### [facility] [address] [address] [address] Tho Hardy pH (U) 5.5 [pH] Normal 5-9 [facility] Comment on above: Performed By: #### P REGU, ERUR, UMICRO #### [facility] [address] [address] [address] Tho Hardy SPEC GRAVITY >=1.030 Abnormal 1.005-<=1.025 [facility] Comment on above: Performed By: #### P REGU, ERUR, UMICRO #### [facility] [address] [address] [address] Tho Hardy UA PROTEIN TRACE Normal NEGATIVE/ TRACE [facility] Comment on above: Performed By: #### P REGU, ERUR, UMICRO #### [facility] [address] [address] [address] Tho Hardy UR MICRO IND INDICATED Normal [facility] Comment on above: Performed By: #### P REGU, ERUR, UMICRO #### [facility] [address] [address] [address] Tho Hardy Urobilinogen Qn (U) 0.2 {Roland'U}/dL Normal 0.2 - 1. 0 [facility] Comment on above: Performed By: #### P REGU, ERUR, UMICRO #### [facility] [address] [address] [address] Tho Hardy GI PANEL (PCR)on 09-26-2022 Adenovirus F 40/41 Not detected Normal NOT DETECTED [facility] Comment on above: Performed By: #### G IPANEL #### [facility] [address] [address] [address] Tho Hardy Astrovirus Not detected Normal NOT DETECTED [facility] Comment on above: Performed By: #### G IPANEL #### [facility] [address] [place] [address] Dr. Tho Hardy C. Diff toxin A/B Not detected Normal NOT DETECTED [facility] Comment on above: Performed By: #### G IPANEL #### [facility] [address] [address] [address] Tho Hardy Campylobacter Not detected Normal NOT DETECTED [facility] Comment on above: Performed By: #### G IPANEL #### [facility] [address] [place] [address] Dr. Tho Hardy Cryptosporidium Not detected Normal NOT DETECTED [facility] Comment on above: Performed By: #### G IPANEL #### [facility] [address] [address] [address] Tho Hardy Cyclos. Cayetanensis Not detected Normal NOT DETECTED [facility] Comment on above: Performed By: #### G IPANEL #### [facility] [address] [place] [address] Dr. Tho Hardy E. Coli O157 Not Applicable Normal Not Applicable [facility] Comment on above: Performed By: #### G IPANEL #### [facility] [address] [address] [address] Tho Hardy E. histolytica Not detected Normal NOT DETECTED [facility] Comment on above: Performed By: #### G IPANEL #### [facility] [address] [address] [address] Tho Hardy EAEC Not detected Normal NOT DETECTED [facility] Comment on above: Performed By: #### G IPANEL #### [facility] [address] [address] [address] Tho Hardy EIEC Not detected Normal NOT DETECTED [facility] Comment on above: Performed By: #### G IPANEL #### [facility] [address] [place] [address] Dr. Tho Hardy EPEC Not detected Normal NOT DETECTED [facility] Comment on above: Performed By: #### G IPANEL #### [facility] [address] [place] [address] Dr. Tho Hardy ETEC Not detected Normal NOT DETECTED [facility] Comment on above: Performed By: #### G IPANEL #### [facility] [address] [place] [address] Dr. Tho Scott Lamblia Not detected Normal NOT DETECTED [facility] Comment on above: Performed By: #### G IPANEL #### [facility] [address] [place] [address] Dr. Tho ALBRIGHT CONTROLS PASSED Normal [facility] Comment on above: Performed By: #### G IPANEL #### [facility] [address] [place] [address] Dr. Tho BARCLAY [facility] HEADER GI PANEL BACTERIA Normal T [facility] Comment on above: Performed By: #### G IPANEL #### [facility] [address] [place] [address] Dr. Tho MCCONNELL ECOLI GI PANEL DIARRHEAGEN IC E.COLI / SHIGELLA Normal [facility] Comment on above: Performed By: #### G IPANEL #### [facility] [address] [place] [address] Dr. Tho MCCONNELL INFO SEE BELOW Normal [facility] Comment on above: Result Comment: EAEC - Enteroaggregative E. Coli EPEC- Enteropathogenic E. Coli ETEC- Enterotoxigenic E. Coli lt/st STEC- Shigella-like toxin-producing E. Coli stx1/stx2 EIEC- Shigella/Enteroinvasive E. Coli Performed By: #### G IPANEL #### [facility] [address] [place] [address] Dr. Tho MCCONNELL PARASITES GI PANEL PARASITES Normal [facility] Comment on above: Performed By: #### G IPANEL #### [facility] [address] [address] [address] Tho MCCONNELL VIRUS GI PANEL VIRUSES Normal [facility] Comment on above: Performed By: #### G IPANEL #### [facility] [address] [place] [address] Dr. Tho Hardy Norovirus GI/GII Not detected Normal NOT DETECTED [facility] Comment on above: Performed By: #### G IPANEL #### [facility] [address] [place] [address] Dr. Tho Hardy P. Shigelloides Not detected Normal NOT DETECTED [facility] Comment on above: Performed By: #### G IPANEL #### [facility] [address] [place] [address] Dr. Tho Hardy Rotavirus A Not detected Normal NOT DETECTED [facility] Comment on above: Performed By: #### G IPANEL #### [facility] [address] [place] [address] Dr. Tho aHrdy Salmonella Not detected Normal NOT DETECTED [facility] Comment on above: Performed By: #### G IPANEL #### [facility] [address] [place] [address] Dr. Tho Hardy Sapovirus Not detected Normal NOT DETECTED [facility] Comment on above: Performed By: #### G IPANEL #### [facility] [address] [place] [address] Dr. Tho Hardy STEC Not detected Normal NOT DETECTED [facility] Comment on above: Performed By: #### G IPANEL #### [facility] [address] [place] [address] Dr. Tho Hardy Vibrio Not detected Normal NOT DETECTED [facility] Comment on above: Performed By: #### G IPANEL #### [facility] [address] [place] [address] Dr. Tho Hardy Vibrio Cholera Not detected Normal NOT DETECTED [facility] Comment on above: Performed By: #### G IPANEL #### [facility] [address] [address] [address] Tho Hardy Y. Enterocolitica Not detected Normal NOT DETECTED [facility] Comment on above: Performed By: #### G IPANEL #### [facility] [address] [address] [address] Tho Hardy URon 09-26-2022 , QUAL Negative Normal NEGATIVE [facility] Comment on above: Performed By: #### P REGU, ERUR, UMICRO #### [facility] [address] [place] [address] Dr. Tho Hardy PROF CHEM 8 (BAS METB)on Anion gap [Moles/Vol] 15.6 mmol/L Normal [facility] Comment on above: Performed By: #### B MP #### [facility] [address] [place] [address] Dr. Tho Hardy Calcium [Mass/Vol] 9.0 mg/dL Normal 8.5-10.1 [facility] Comment on above: Performed By: #### B MP #### [facility] [address] [place] [address] Dr. Tho Hardy Chloride [Moles/Vol] 104 mmol/L Normal 98-107 [facility] Comment on above: Performed By: #### B MP #### [facility] [address] [address] [address] Tho Hardy CO2 [Moles/Vol] 24.0 mmol/L Normal 21.0-32.[address] [facility] Comment on above: Performed By: #### B MP #### [facility] [address] [place] [address] Dr. Tho Hardy Creatinine [Mass/Vol] 0.73 mg/dL Normal 0.55-1.02 [facility] Comment on above: Performed By: #### B MP #### [facility] [address] [address] [address] Tho Hardy EGFR-AF TURKMEN >60 Normal >=60 [facility] Comment on above: Performed By: #### B MP #### [facility] [address] [address] [address] Tho Hardy EGFR-NON AF TURKMEN >60 Normal >=60 [facility] Comment on above: Performed By: #### B MP #### [facility] [address] [address] [address] Tho Hardy Glucose [Mass/Vol] 85 mg/dL Normal 74-106 [facility] Comment on above: Performed By: #### B MP #### [facility] [address] [place] [address] Dr. Tho Hardy Potassium [Moles/Vol] 3.6 mmol/L Normal 3.5-5.1 [facility] Comment on above: Performed By: #### B MP #### [facility] [address] [address] [address] Tho Hardy Sodium [Moles/Vol] 140 mmol/L Normal 136-145 [facility] Comment on above: Performed By: #### B MP #### [facility] [address] [place] [address] Dr. Tho Hardy Urea nitrogen [Mass/Vol] 12.0 mg/dL Normal 7.0-18.0 [facility] Comment on above: Performed By: #### B MP #### [facility] [address] [place] [address] Dr. Tho Hardy Urea nitrogen/Creatinine [Mass ratio] 16.4 mg/mg Normal [facility] Comment on above: Performed By: #### B MP #### [facility] [address] [place] [address] Dr. Tho Hardy URINE MICROSCOPIC ONLYon BACTERIA TRACE Abnormal NONE SEEN [facility] Comment on above: Performed By: #### P REGU, ERUR, UMICRO #### [facility] [address] [address] [address] Tho Hardy Bacteria identified Cx Nom (U) NOT INDICATED Normal [facility] Comment on above: Performed By: #### P REGU, ERUR, UMICRO #### [facility] [address] [address] [address] Tho Hardy CAST NONE SEEN Normal NONE SEEN [facility] Comment on above: Performed By: #### P REGU, ERUR, UMICRO #### [facility] [address] [address] [address] Tho Hardy Crystals LM Nom (Urine sed) NONE SEEN Normal NONE SEEN [facility] Comment on above: Performed By: #### P REGU, ERUR, UMICRO #### [facility] [address] [place] [address] Dr. Tho Hardy Epithelial cells LM Ql (Urine sed) MANY Abnormal NONE SEEN /RARE [facility] Comment on above: Performed By: #### P REGU, ERUR, UMICRO #### [facility] [address] [address] [address] Tho Hardy MUCOUS NONE SEEN Normal NONE SEEN [facility] Comment on above: Performed By: #### P REGU, ERUR, UMICRO #### [facility] [address] [address] [address] Tho Hardy RBC 2-5 Abnormal 0-2 [facility] Comment on above: Performed By: #### P REGU, ERUR, UMICRO #### [facility] [address] [address] [address] Tho Hardy WBC NONE SEEN Normal NONE SEEN [facility] Comment on above: Performed By: #### P REGU, ERUR, UMICRO #### [facility] [address] [address] [address] Tho Hardy AMYLASEon 08-04-2022 Amylase [Catalytic activity/Vol] 27 U/L Normal 25-115 [facility] Comment on above: Performed By: #### P REGU, ERUR, UMICRO #### [facility] [address] [address] [address] Tho Hardy CARDIAC JEAN 3-6on 2 CK [Catalytic activity/Vol] 53 U/L Normal 26-192 [facility] Comment on above: Performed By: #### C MREP #### [facility] [address] [address] [address] Tho Hardy CK.MB [Mass/Vol] 0.79 ng/mL Normal <=3.[address] [facility] Comment on above: Performed By: #### C MREP #### [facility] [address] [address] [address] Tho Hardy HSTROP 4.6 pg/mL Normal 4.0-51.3 [facility] Comment on above: Result Comment: CUT- OFF POINTS HAVE BEEN ESTABLISHED BASED ON THE FOURTH UNIVERSAL DEFINITIONS OF MYOCARDIAL INFARCTION. THE UPPER REFERENCE LIMIT (URL) OF TROPONIN, DEFINED THE 99TH PERCENTILE OF cTnI DISTRIBUTION IN A REFERENCE POPULATION, HAS BEEN CONFIRMED THE DECISION THRESHOLD FOR RI DIAGNOSIS. Performed By: #### C MREP #### [facility] [address] [place] [address] Dr. Tho Hardy CARDIAC JEAN ADMITon 022 CK [Catalytic activity/Vol] 68 U/L Normal 26-192 [facility] Comment on above: Performed By: #### P RICHARDSON MCNEIL UMICRO #### [facility] [address] [address] [address] Tho Hardy CK.MB [Mass/Vol] 1.11 ng/mL Normal <=3.[address] [facility] Comment on above: Performed By: #### P RICHARDSON MCNEIL UMICRO #### [facility] [address] [address] [address] Tho Hardy HSTROP 4.3 pg/mL Normal 4.0-51.3 [facility] Comment on above: Result Comment: CUT- OFF POINTS HAVE BEEN ESTABLISHED BASED ON THE FOURTH UNIVERSAL DEFINITIONS OF MYOCARDIAL INFARCTION. THE UPPER REFERENCE LIMIT (URL) OF TROPONIN, DEFINED THE 99TH PERCENTILE OF cTnI DISTRIBUTION IN A REFERENCE POPULATION, HAS BEEN CONFIRMED THE DECISION THRESHOLD FOR RI DIAGNOSIS. Performed By: #### P REGU, ERUR, UMICRO #### [facility] [address] [place] [address] Dr. Tho Hardy KINDRA 29 ng/mL Normal 9-82 [facility] Comment on above: Performed By: #### P REGU, ERUR, UMICRO #### [facility] [address] [place] [address] Dr. Tho Hardy CBC AUTO DIFFon 08-04-2022 BASO # 0.0 103/ul Normal 0.0-0.1 [facility] Comment on above: Performed By: #### P REGU, ERUR, UMICRO #### [facility] [address] [place] [address] Dr. Tho Hardy Basophils/100 WBC (Bld) 0.4 % Normal 0.2-2.0 [facility] Comment on above: Performed By: #### P REGU, ERUR, UMICRO #### [facility] [address] [place] [address] Dr. Tho Hardy EO # 0.2 103/ul Normal 0.0-0.7 [facility] Comment on above: Performed By: #### P REGU, ERUR, UMICRO #### [facility] [address] [place] [address] Dr. Tho Hardy Eosinophils/100 WBC (Bld) 1.7 % Normal 0.9-7.0 [facility] Comment on above: Performed By: #### P REGU, ERUR, UMICRO #### [facility] [address] [place] [address] Dr. Tho Hardy Erythrocyte distribution width (RBC) [Ratio] 12.9 % Normal 11.0-15.0 [facility] Comment on above: Performed By: #### P REGU, ERUR, UMICRO #### [facility] [address] [place] [address] Dr. Tho Hardy Hematocrit (Bld) [Volume fraction] 43.2 % Normal 36.0-48.0 [facility] Comment on above: Performed By: #### P REGU, ERUR, UMICRO #### [facility] [address] [place] [address] Dr. Tho Hardy Hemoglobin (Bld) [Mass/Vol] 14.4 g/dL Normal 12.0-16.0 [facility] Comment on above: Performed By: #### P REGU, ERUR, UMICRO #### [facility] [address] [place] [address] Dr. Tho Hardy IG # 0.05 10e3/ul Critically high 0.00-0.03 [facility] Comment on above: Performed By: #### P REGU, ERUR, UMICRO #### [facility] [address] [place] [address] Dr. Tho Hardy IG % 0.4 % Normal 0.0-0.5 [facility] Comment on above: Performed By: #### P REGU, ERUR, UMICRO #### [facility] [address] [place] [address] Dr. Tho Hardy LYMPH # 2.4 103/ul Normal 1.2-3.8 [facility] Comment on above: Performed By: #### P REGU, ERUR, UMICRO #### [facility] [address] [place] [address] Dr. Tho Hardy Lymphocytes/100 WBC (Bld) 21.3 % Normal 20.5-60.0 [facility] Comment on above: Performed By: #### P REGU, ERUR, UMICRO #### [facility] [address] [place] [address] Dr. Tho Hardy MANUAL DIFF REQ NO Normal [facility] Comment on above: Performed By: #### P REGU, ERUR, UMICRO #### [facility] [address] [place] [address] Dr. Tho Hardy MCH (RBC) [Entitic mass] 29.9 pg Normal 26.7-34.0 [facility] Comment on above: Performed By: #### P REGU, ERUR, UMICRO #### [facility] [address] [place] [address] Dr. Tho Hardy MCHC (RBC) [Mass/Vol] 33.3 g/dL Normal 29.9-35.2 [facility] Comment on above: Performed By: #### P REGU, ERUR, UMICRO #### [facility] [address] [place] [address] Dr. Tho Hardy MCV (RBC) [Entitic vol] 89.6 fL Normal 81.0-99.0 [facility] Comment on above: Performed By: #### P REGU, ERUR, UMICRO #### [facility] [address] [place] [address] Dr. Tho Hardy MONO # 0.6 103/ul Normal 0.3-0.8 [facility] Comment on above: Performed By: #### P REGU, ERUR, UMICRO #### [facility] [address] [place] [address] Dr. Tho Hardy Monocytes/100 WBC (Bld) 5.5 % Normal 1.7-12.0 [facility] Comment on above: Performed By: #### P REGU, ERUR, UMICRO #### [facility] [address] [place] [address] Dr. Tho Hardy NEUT # 8.0 103/ul Critically high 1.4-6.5 [facility] Comment on above: Performed By: #### P REGU, ERUR, UMICRO #### [facility] [address] [place] [address] Dr. Tho Hardy Neutrophils/100 WBC (Bld) 70.7 % Normal 43.0-75.0 [facility] Comment on above: Performed By: #### P REGU, ERUR, UMICRO #### [facility] [address] [place] [address] Dr. Tho Hardy Platelet mean volume (Bld) [Entitic vol] 10.7 fL Normal 9.5-13.5 [facility] Comment on above: Performed By: #### P REGU, ERUR, UMICRO #### [facility] [address] [place] [address] Dr. Tho Hardy PLT 220 103/ul Normal 150-450 [facility] Comment on above: Performed By: #### RICHARDSON GALE UMICRO #### [facility] [address] [address] [address] Tho Hardy RBC 4.82 106/ul Normal 4.20-5.40 [facility] Comment on above: Performed By: #### RICHARDSON GALE UMICRO #### [facility] [address] [address] [address] Tho Hardy WBC 11.3 103/ul Critically high 4.0-11.0 [facility] Comment on above: Performed By: #### RICHARDSON GALE UMICRO #### [facility] [address] ABD/PELV W CONon [...] ISH HECTOR Date: 2022-08-04 05:28 Normal [facility] LACTATE/LACTIC ACIDon 2021 Lactate [Moles/Vol] 1.0 mmol/L Normal 0.4-1.9 [facility] Comment on above: Performed By: #### L ACT #### [facility] [address] [address] [address] Tho Hardy Lactate [Moles/Vol] 1.2 mmol/L Normal 0.4-1.9 [facility] Comment on above: Performed By: #### L ACT #### [facility] [address] [address] [address] Tho Hardy LIPASEon 08-04-2022 Lipase [Catalytic activity/Vol] 72.0 U/L Critically low 73.0-393.0 [facility] Comment on above: Performed By: #### P REGU, ERUR, UMICRO #### [facility] [address] [address] [address] Tho Hardy PROF 14(COMP METB)on 022 Albumin [Mass/Vol] 3.7 g/dL Normal 3.4-5.0 [facility] Comment on above: Performed By: #### P REGU, ERUR, UMICRO #### [facility] [address] [address] [address] Tho Hardy Albumin/Globulin [Mass ratio] 0.9 {ratio} Normal [facility] Comment on above: Performed By: #### P REGU, ERUR, UMICRO #### [facility] [address] [address] [address] Tho Hardy ALP [Catalytic activity/Vol] 83 U/L Normal 46-116 [facility] Comment on above: Performed By: #### P REGU, ERUR, UMICRO #### [facility] [address] [address] [address] Tho Hardy ALT [Catalytic activity/Vol] 36 U/L Normal 14-59 [facility] Comment on above: Performed By: #### P REGU, ERUR, UMICRO #### [facility] [address] [address] [address] Tho Hardy Anion gap [Moles/Vol] 9.7 mmol/L Normal [facility] Comment on above: Performed By: #### P REGU, ERUR, UMICRO #### [facility] [address] [address] [address] Tho Hardy AST [Catalytic activity/Vol] 19 U/L Normal 15-37 [facility] Comment on above: Performed By: #### P REGU, ERUR, UMICRO #### [facility] [address] [address] [address] Tho Hardy Bilirubin [Mass/Vol] 0.3 mg/dL Normal 0.2-1.0 [facility] Comment on above: Performed By: #### P REGU, ERUR, UMICRO #### [facility] [address] [place] [address] Dr. Tho Hardy Calcium [Mass/Vol] 8.9 mg/dL Normal 8.5-10.1 [facility] Comment on above: Performed By: #### P REGU, ERUR, UMICRO #### [facility] [address] [place] [address] Dr. Tho Hardy Chloride [Moles/Vol] 103 mmol/L Normal 98-107 [facility] Comment on above: Performed By: #### P REGU, ERUR, UMICRO #### [facility] [address] [place] [address] Dr. Tho Hardy CO2 [Moles/Vol] 27.8 mmol/L Normal 21.0-32.[address] [facility] Comment on above: Performed By: #### P REGU, ERUR, UMICRO #### [facility] [address] [place] [address] Dr. Tho Hardy Creatinine [Mass/Vol] 0.62 mg/dL Normal 0.55-1.02 [facility] Comment on above: Performed By: #### P REGU, ERUR, UMICRO #### [facility] [address] [place] [address] Dr. Tho Hardy EGFR-AF TURKMEN >60 Normal >=[address] [facility] Comment on above: Performed By: #### P REGU, ERUR, UMICRO #### [facility] [address] [address] [address] Tho Hardy EGFR-NON AF TURKMEN >60 Normal >=60 [facility] Comment on above: Performed By: #### P REGU, ERUR, UMICRO #### [facility] [address] [address] [address] Tho Hardy Globulin (S) [Mass/Vol] 3.9 g/dL Normal [facility] Comment on above: Performed By: #### P REGU, ERUR, UMICRO #### [facility] [address] [address] [address] Tho Hardy Glucose [Mass/Vol] 98 mg/dL Normal 74-106 [facility] Comment on above: Performed By: #### P REGU, ERUR, UMICRO #### [facility] [address] [address] [address] Tho Hardy Potassium [Moles/Vol] 3.5 mmol/L Normal 3.5-5.1 [facility] Comment on above: Performed By: #### P REGU, ERUR, UMICRO #### [facility] [address] [address] [address] Tho Hardy Protein [Mass/Vol] 7.6 g/dL Normal 6.4-8.2 [facility] Comment on above: Performed By: #### P REGU, ERUR, UMICRO #### [facility] [address] [address] [address] Toh Hardy Sodium [Moles/Vol] 137 mmol/L Normal 136-145 [facility] Comment on above: Performed By: #### P REGU, ERUR, UMICRO #### [facility] [address] [place] [address] Dr. Tho Hardy Urea nitrogen [Mass/Vol] 18.0 mg/dL Normal 7.0-18.0 [facility] Comment on above: Performed By: #### P REGU, ERUR, UMICRO #### [facility] [address] [place] [address] Dr. Tho Hardy Urea nitrogen/Creatinine [Mass ratio] 29.0 mg/mg Normal [facility] Comment on above: Performed By: #### RICHARDSON GALE UMICRO #### [facility] [address] [address] [address] Tho Hardy XR CHEST 1 Von [...] JOLENE BURDICK Date: 2022-08-04 02:02 Normal [facility] D-DIMERon 07-09-2022 D-DIMER 0.23 mg/L FEU Normal <=0.59 The [facility] Comment on above: Performed By: #### RICHARDSON GALE UMICRO #### [facility] [address] [address] [address] Tho Hardy D-DIMER COMMENTS SEE BELOW Normal [facility] Comment on above: Result Comment: Incr [...] Performed By: #### RICHARDSON GALE UMICRO #### [facility] [address] [address] [address] Tho Hardy XR HIP LT 2 [...] by: JOSIE KING Date: 2022-07-08 23:54 Normal [facility] US PELVIS TRANSVAGon 022 US PELVIS TRANSVAG [...] by: AYAD BIGGS Date: 2022-05-01 10:25 Normal [facility] CNOVon 04-26-2022 OV Office Visit ([facility] ) CONNIE SALCIDO ([id number]) 1995 F Date Time Provider Department 04/26/22 1:30 PM CARLOS TARIQ [facility] During your visit today, we recorded the following information about you: Pulse Blood pressure Weight Height 104/minute 140/84 138.3 kg 1.524 m Last Period 04/19/22 Jess Suero MA 04/26/2022 1:37 PM Signed 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 NO Have you had unintentional weight loss of 15 lbs/7 Kg in the last 3-6 months? 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 NO Have you had unintentional weight loss of 15 lbs/7 Kg in the last 3-6 months? NO Bowels: regular Wound: none Temperature: No Drains: No Encounter Status:Closed by CARLOS TARIQ on 04/26/[address] [facility] [address] ABD/PELV Jenna Soto 04-12-20 CT ABD/PELV W CON Study: CT [...] YENI PARNELL Date: 2022-04-12 00:02 Normal [facility] CBC AUTO DIFFon 04-11-2022 BASO # 0.0 103/ul Normal 0.0-0.1 [facility] Comment on above: Performed By: #### P RICHARDSON MCNEIL UMICRO #### [facility] [address] [place], [place] [address] Dr. Tho Hardy Basophils/100 WBC (Bld) 0.2 % Normal 0.2-2.0 [facility] Comment on above: Performed By: #### P TARUN ERUR, UMICRO #### [facility] [address] [place], [place] [address] Dr. Tho Hardy EO # 0.1 103/ul Normal 0.0-0.7 [facility] Comment on above: Performed By: #### P REGU, ERUR, UMICRO #### [facility] [address] [place] [address] Dr. Tho Hardy Eosinophils/100 WBC (Bld) 0.7 % Critically low 0.9-7.0 [facility] Comment on above: Performed By: #### P REGU, ERUR, UMICRO #### [facility] [address] [place] [address] Dr. Tho Hardy Erythrocyte distribution width (RBC) [Ratio] 13.4 % Normal 11.0-15.0 [facility] Comment on above: Performed By: #### P REGU, ERUR, UMICRO #### [facility] [address] [place] [address] Dr. Tho Hardy Hematocrit (Bld) [Volume fraction] 39.9 % Normal 36.0-48.0 [facility] Comment on above: Performed By: #### P REGU ERUR, UMICRO #### [facility] [address] [place] [address] Dr. Tho Hardy Hemoglobin (Bld) [Mass/Vol] 13.3 g/dL Normal 12.0-16.0 [facility] Comment on above: Performed By: #### P REGU, ERUR, UMICRO #### [facility] [address] [place] [address] Dr. Tho Hardy IG # 0.04 10e3/ul Critically high 0.00-0.03 [facility] Comment on above: Performed By: #### P REGU, ERUR, UMICRO #### [facility] [address] [place] [address] Dr. Tho Hardy IG % 0.4 % Normal 0.0-0.5 [facility] Comment on above: Performed By: #### P REGU, ERUR, UMICRO #### [facility] [address] [place] [address] Dr. Tho Hardy LYMPH # 2.8 103/ul Normal 1.2-3.8 [facility] Comment on above: Performed By: #### P REGU, ERUR, UMICRO #### [facility] [address] [place] [address] Dr. Tho Hardy Lymphocytes/100 WBC (Bld) 31.1 % Normal 20.5-60.0 [facility] Comment on above: Performed By: #### P REGU, ERUR, UMICRO #### [facility] [address] [place] [address] Dr. Tho Hardy MANUAL DIFF REQ NO Normal [facility] Comment on above: Performed By: #### P REGU, ERUR, UMICRO #### [facility] [address] [place] [address] Dr. Tho Hardy MCH (RBC) [Entitic mass] 29.8 pg Normal 26.7-34.0 [facility] Comment on above: Performed By: #### P REGU, ERUR, UMICRO #### [facility] [address] [place] [address] Dr. Tho Hardy MCHC (RBC) [Mass/Vol] 33.3 g/dL Normal 29.9-35.2 [facility] Comment on above: Performed By: #### P REGU, ERUR, UMICRO #### [facility] [address] [place] [address] Dr. Tho Hardy MCV (RBC) [Entitic vol] 89.5 fL Normal 81.0-99.0 [facility] Comment on above: Performed By: #### P REGU, ERUR, UMICRO #### [facility] [address] [place] [address] Dr. Tho Hardy MONO # 0.7 103/ul Normal 0.3-0.8 [facility] Comment on above: Performed By: #### P REGU, ERUR, UMICRO #### [facility] [address] [place] [address] Dr. Tho Hardy Monocytes/100 WBC (Bld) 7.3 % Normal 1.7-12.0 [facility] Comment on above: Performed By: #### P REGU, ERUR, UMICRO #### [facility] [address] [place] [address] Dr. Tho Hardy NEUT # 5.4 103/ul Normal 1.4-6.5 [facility] Comment on above: Performed By: #### P REGU, ERUR, UMICRO #### [facility] [address] [place] [address] Dr. Tho Hardy Neutrophils/100 WBC (Bld) 60.3 % Normal 43.0-75.0 [facility] Comment on above: Performed By: #### P REGU, ERUR, UMICRO #### [facility] [address] [place] [address] Dr. Tho Hardy Platelet mean volume (Bld) [Entitic vol] 9.1 fL Critically low 9.5-13.5 [facility] Comment on above: Performed By: #### P REGU, ERUR, UMICRO #### [facility] [address] [place] [address] Dr. Tho Hardy PLT 249 103/ul Normal 150-450 [facility] Comment on above: Performed By: #### P REGU, ERUR, UMICRO #### [facility] [address] [place] [address] Dr. Tho Hardy RBC 4.46 106/ul Normal 4.20-5.40 [facility] Comment on above: Performed By: #### P REGU, ERUR, UMICRO #### [facility] [address] [place] [address] Dr. Tho Hardy WBC 9.0 103/ul Normal 4.0-11.0 [facility] Comment on above: Performed By: #### P REGU, ERUR, UMICRO #### [facility] [address] [place] [address] Dr. Tho Hardy ER URINE PROFILEon 2 Bilirubin Ql (U) Negative Normal NEGATIVE [facility] Comment on above: Performed By: #### B MP #### [facility] [address] [place] [address] Dr. Tho Hardy Clarity (U) CLEAR Normal CLEAR [facility] Comment on above: Performed By: #### B MP #### [facility] [address] [place] [address] Dr. Tho Hardy Color (U) YELLOW Normal YELLOW [facility] Comment on above: Performed By: #### B MP #### [facility] [address] [place] [address] Dr. Tho Hardy ERUAHD A micrscopic examination will be performed if indicated. Normal [facility] Comment on above: Performed By: #### B MP #### [facility] [address] [place] [address] Dr. Tho Hardy Glucose Ql (U) Negative Normal NEGATIVE [facility] Comment on above: Performed By: #### B MP #### [facility] [address] [place] [address] Dr. Tho Hardy Hemoglobin Ql (U) MODERATE Abnormal NEGATIVE The [facility] Comment on above: Performed By: #### B MP #### [facility] [address] [place] [address] Dr. Tho Hardy Ketones Ql (U) Negative Normal NEGATIVE [facility] Comment on above: Performed By: #### B MP #### [facility] [address] [place] [address] Dr. Tho Hardy LEUKOCYTES Negative Normal NEGATIVE [facility] Comment on above: Performed By: #### B MP #### [facility] [address] [place] [address] Dr. Tho Hardy Nitrite Ql (U) Negative Normal NEGATIVE [facility] Comment on above: Performed By: #### B MP #### [facility] [address] [place] [address] Dr. Tho Hardy pH (U) 5.5 [pH] Normal 5-9 [facility] Comment on above: Performed By: #### B MP #### [facility] [address] [place] [address] Dr. Tho Hardy SPEC GRAVITY >=1.030 Abnormal 1.005-<=1.025 [facility] Comment on above: Performed By: #### B MP #### [facility] [address] [place] [address] Dr. Tho Hardy UA PROTEIN Negative Normal NEGATIVE/ TRACE [facility] Comment on above: Performed By: #### B MP #### [facility] [address] [place] [address] Dr. Tho Hardy UR MICRO IND INDICATED Normal [facility] Comment on above: Performed By: #### B MP #### [facility] [address] [place] [address] Dr. Tho Hardy Urobilinogen Qn (U) 0.2 {Roland'U}/dL Normal 0.2 - 1. 0 [facility] Comment on above: Performed By: #### B MP #### [facility] [address] [place] [address] Dr. Tho Hardy LIPASEon 04-11-2022 Lipase [Catalytic activity/Vol] 88.0 U/L Normal 73.0-393.0 [facility] Comment on above: Performed By: #### L ACT #### [facility] [address] [place] [address] Dr. Tho Hardy PREG HCG QUALon 04-11-2022 , QUAL Negative Normal NEGATIVE [facility] Comment on above: Performed By: #### P REG #### [facility] [address] [place] [address] Dr. Tho Hardy PROF 14(COMP METB)on 022 Albumin [Mass/Vol] 3.5 g/dL Normal 3.4-5.0 [facility] Comment on above: Performed By: #### L ACT #### [facility] [address] [place] [address] Dr. Tho Hardy Albumin/Globulin [Mass ratio] 0.9 {ratio} Normal [facility] Comment on above: Performed By: #### L ACT #### [facility] [address] [place] [address] Dr. Tho Hardy ALP [Catalytic activity/Vol] 73 U/L Normal 46-116 [facility] Comment on above: Performed By: #### L ACT #### [facility] [address] [address] [address] Tho Hardy ALT [Catalytic activity/Vol] 29 U/L Normal 14-59 [facility] Comment on above: Performed By: #### L ACT #### [facility] [address] [address] [address] Tho Hardy Anion gap [Moles/Vol] 10.4 mmol/L Normal [facility] Comment on above: Performed By: #### L ACT #### [facility] [address] [address] [address] Tho Hardy AST [Catalytic activity/Vol] 15 U/L Normal 15-37 [facility] Comment on above: Performed By: #### L ACT #### [facility] [address] [place] [address] Dr. Tho Hardy Bilirubin [Mass/Vol] 0.4 mg/dL Normal 0.2-1.0 [facility] Comment on above: Performed By: #### L ACT #### [facility] [address] [address] [address] Tho Hardy Calcium [Mass/Vol] 8.4 mg/dL Critically low 8.5-10.[address] [facility] Comment on above: Performed By: #### L ACT #### [facility] [address] [place] [address] Dr. Tho Hardy Chloride [Moles/Vol] 103 mmol/L Normal 98-107 [facility] Comment on above: Performed By: #### L ACT #### [facility] [address] [address] [address] Tho Hardy CO2 [Moles/Vol] 27.8 mmol/L Normal 21.0-32.[address] [facility] Comment on above: Performed By: #### L ACT #### [facility] [address] [address] [address] Tho Hardy Creatinine [Mass/Vol] 0.75 mg/dL Normal 0.55-1.02 [facility] Comment on above: Performed By: #### L ACT #### [facility] [address] [address] [address] Tho Hardy EGFR-AF TURKMEN >60 Normal >=[address] [facility] Comment on above: Performed By: #### L ACT #### [facility] [address] [address] [address] Tho Hardy EGFR-NON AF TURKMEN >60 Normal >=60 [facility] Comment on above: Performed By: #### L ACT #### [facility] [address] [address] [address] Tho Hardy Globulin (S) [Mass/Vol] 3.7 g/dL Normal [facility] Comment on above: Performed By: #### L ACT #### [facility] [address] [place] [address] Dr. Tho Hardy Glucose [Mass/Vol] 88 mg/dL Normal 74-106 [facility] Comment on above: Performed By: #### L ACT #### [facility] [address] [place] [address] Dr. Tho Hardy Potassium [Moles/Vol] 3.2 mmol/L Critically low 3.5-5.1 [facility] Comment on above: Performed By: #### L ACT #### [facility] [address] [place] [address] Dr. Tho Hardy Protein [Mass/Vol] 7.2 g/dL Normal 6.4-8.2 [facility] Comment on above: Performed By: #### L ACT #### [facility] [address] [place] [address] Dr. Tho Hardy Sodium [Moles/Vol] 138 mmol/L Normal 136-145 [facility] Comment on above: Performed By: #### L ACT #### [facility] [address] [address] [address] Tho Hardy Urea nitrogen [Mass/Vol] 13.0 mg/dL Normal 7.0-18.0 [facility] Comment on above: Performed By: #### L ACT #### [facility] [address] [address] [address] Tho Hardy Urea nitrogen/Creatinine [Mass ratio] 17.3 mg/mg Normal [facility] Comment on above: Performed By: #### L ACT #### [facility] [address] [place] [address] Dr. Tho Hardy PROTIMEon 04-11-2022 INR Coag (PPP) [Relative time] 0.97 {INR} Normal [facility] Comment on above: Performed By: #### P REGU, ERUR, UMICRO #### [facility] [address] [place] [address] Dr. Tho Hardy INR GUIDELINES SEE BELOW Normal [facility] Comment on above: Result Comment: JOSEFINA RED INR: 2.0 - 3.0 CONDITIONS NOT LISTED BELOW 2.5 - 3.5 FOR PROSTHETIC HEART VALVE REPLACEMENT 2.5 - 3.5 RECURRENT THROMBOSIS Performed By: #### P REGU, ERUR, UMICRO #### [facility] [address] [place] [address] Dr. Tho Hardy PT Coag (PPP) [Time] 10.5 s Normal 9.0-11.6 [facility] Comment on above: Performed By: #### P REGU, ERUR, UMICRO #### [facility] [address] [place] [address] Dr. Tho Hardy PTTon 04-11-2022 aPTT Coag (Bld) [Time] 27.8 s Normal 22.3-36.2 [facility] Comment on above: Performed By: #### P REGU, ERUR, UMICRO #### [facility] [address] [place] [address] Dr. Tho Hardy URINE MICROSCOPIC ONLYon BACTERIA NONE SEEN Normal NONE SEEN [facility] Comment on above: Performed By: #### B MP #### [facility] [address] [place] [address] Dr. Tho Hardy Bacteria identified Cx Nom (U) NOT INDICATED Normal [facility] Comment on above: Performed By: #### B MP #### [facility] [address] [place] [address] Dr. Tho Hardy CAST NONE SEEN Normal NONE SEEN [facility] Comment on above: Performed By: #### B MP #### [facility] [address] [place] [address] Dr. Tho Hardy Crystals LM Nom (Urine sed) NONE SEEN Normal NONE SEEN [facility] Comment on above: Performed By: #### B MP #### [facility] [address] [address] [address] Tho Hardy Epithelial cells LM Ql (Urine sed) NONE SEEN Normal NONE SEEN /RARE [facility] Comment on above: Performed By: #### B MP #### [facility] [address] [place] [address] Dr. Tho Hardy MUCOUS NONE SEEN Normal NONE SEEN [facility] Comment on above: Performed By: #### B MP #### [facility] [address] [place] [address] Dr. Tho Hardy RBC 2-5 Abnormal 0-2 [facility] Comment on above: Performed By: #### B MP #### [facility] [address] [place] [address] Dr. Tho Hardy WBC NONE SEEN Normal NONE SEEN [facility] Comment on above: Performed By: #### B MP #### [facility] [address] [place] [address] Dr. Tho Hardy XR ANKLE LT MIN 3 Von 2021 XR ANKLE LT MIN 3 V EXAM: XR ANKLE LT RI N 3 V HISTORY: Left ankle pain COMPARISON: None. TECHNIQUE: 3 views FINDINGS: No osseous lesion, fracture, dislocation or subluxation. Joint spaces are normal. No visualized effusion. No visualized soft tissue edema. IMPRESSION: Normal x-rays Electronically authenticated by: AYAD CORTEZ Date: 2022-02-06 19:06 Normal [facility] Vital Signs Date Time Vital Sign Value Performing Clinician Danny neves 09-13-2024 15:10-0500 Body mass index (BMI) [Ratio] 53.31 kg/m2 [employer] Work Phone: [facility] 09-13-2024 15:10-0500 Body weight 127.97 kg [employer] Work Phone: [facility] 09-13-2024 15:10-0500 Diastolic blood pressure 82 mm[Hg] Noah Isabelle DO Work Phone: [facility] 09-13-2024 15:10-0500 Systolic blood pressure 130 mm[Hg] Noah Isabelle DO Work Phone: [facility] 05-16-2022 14:03-0400 Body weight 133.81 kg Rosa Maria Israel MD Work Phone: [facility] 05-16-2022 12:56-0400 Body height 152.[address] Work Phone: [facility] 05-16-2022 12:56-0400 Body weight 133.[address] Work Phone: [facility] Encounters Encounter Date Encounter Type Care Provider Facility Start: 12-21-2024 End: 12-21-2024 Bamboo flowsheet Noah Isabelle DO Work Phone: [facility] Start: 12-21-2024 End: 12-21-2024 Bamboo flowsheet Noah Isabelle DO Work Phone: [facility] Start: 09-13-2024 End: 09-13-2024 Office outpatient visit 15 minutes Noah Isabelle DO Work Phone: [facility] Comment on above: Sweating abnormality ; Status post hysterectomy; Vaginal dryness Start: 09-13-2024 End: 09-13-2024 ambulatory NOAH ISABELLE Not Available Start: 09-13-2024 End: 09-13-2024 Bamboo flowsheet Noah Isabelle DO Work Phone: [facility] Start: 09-13-2024 End: 09-13-2024 Bamboo flowsheet Noah Isabelle DO Work Phone: [facility] Start: 01-06-2024 End: 01-07-2024 ambulatory KERA E EROS Facility: [place] Start: 11-11-2023 End: 11-12-2023 ambulatory KERA E EROS Facility: [facility] Start: 08-19-2023 End: 08-20-2023 ambulatory Carmen Coello Facility:[facility] Start: 12-30-2022 End: 12-30-2022 ambulatory MITESH WHITMAN [...] Maria Israel MD Work Phone: [facility] Start: 05-01-2022 End: 05-02-[address] NOAH [...] Screening for malign ant neoplasm of cervix [facility] Start: 05-09-2025 Influenza vaccination Influenz a Vaccine (Season Ended) [facility] Start: 12-21-2024 End: 12-21-2024 Patient encounter procedure 12/21/2024 3:00 PM EDT Office Visit [facility] [address] [facility] [address] Noah Walton DO [address] [place], [place] [id number] Arrived [facility] Comment on above: Arrived Start: 09-13-2024 End: 09-13-2024 Patient encounter procedure 09/13/2024 2:50 PM EST Office Visit [facility] [address] [place] [address] Noah Walton DO [address] [place], [place] [id number] Arrived [facility] Comment on above: Arrived Start: 05-09-2024 Influenza vaccination Influenza Vacc ine (#1) [facility] Start: 2023 Screening for malign ant neoplasm of cervix HPV/Cotest [facility] Start: 05-16-2022 End: 05-14-2023 25-hydroxyvitamin D3 [Mass/volume] in Serum or Plasma VITAMIN D 25 HYDROXY Lab Routine Abnormal weight gain Preop testing Morbid obesity with BMI of 50.0-59.9, adult (HCC) HANH (obstructive sleep apnea) Expected: 05/16/2022 (Approximate), Expires: 05/14/2023 [facility] Work Phone: Comment on above: Expected: 05/16/2022 (Approximate), Expires: 05/14/2023 Start: 05-16-2022 End: 05-14-2023 CBC panel - Blood by Automated count CBC Lab Routine Abnormal weight gain Preop testing Morbid obesity with BMI of 50.0-59.9, adult (HCC) HANH (obstructive sleep apnea) Expected: 05/16/2022 (Approximate), Expires: 05/14/2023 [facility] Work Phone: Comment on above: Expected: 05/16/2022 (Approximate), Expires: 05/14/2023 Start: 05-16-2022 End: 05-14-2023 Cobalamin (Vitamin B12) [Mass/volume] in Serum or Plasma VITAMIN B12 BLOOD Lab Routine Abnormal weight gain Preop testing Morbid obesity with BMI of 50.0-59.9, adult (HCC) HANH (obstructive sleep apnea) Expected: 05/16/2022 (Approximate), Expires: 05/14/2023 [facility] Work Phone: Comment on above: Expected: 05/16/2022 (Approximate), Expires: 05/14/2023 Start: 05-16-2022 End: 05-14-2023 Comprehensive metabolic 2000 panel - Serum or Plasma COMP METABOLIC PANEL Lab Routine Abnormal weight gain Preop testing Morbid obesity with BMI of 50.0-59.9, adult (HCC) HANH (obstructive sleep apnea) Expected: 05/16/2022 (Approximate), Expires: 05/14/2023 [facility] Work Phone: Comment on above: Expected: 05/16/2022 (Approximate), Expires: 05/14/2023 Start: 05-16-2022 End: 05-14-2023 Folate [Mass/volume] in Serum or Plasma FOLATE SERUM Lab Routine Abnormal weight gain Preop testing Morbid obesity with BMI of 50.0-59.9, adult (HCC) HANH (obstructive sleep apnea) Expected: 05/16/2022 (Approximate), Expires: 05/14/2023 [facility] Work Phone: Comment on above: Expected: 05/16/2022 (Approximate), Expires: 05/14/2023 Start: 05-16-2022 End: 05-14-2023 Hemoglobin A1c in Blood HGB A1C Lab Routine Abnormal weight gain Preop testing Morbid obesity with BMI of 50.0-59.9, adult (HCC) HANH (obstructive sleep apnea) Expected: 05/16/2022 (Approximate), Expires: 05/14/2023 [facility] Work Phone: Comment on above: Expected: 05/16/2022 (Approximate), Expires: 05/14/2023 Start: 05-16-2022 End: 05-14-2023 Iron and Iron binding capacity panel - Serum or Plasma IRON + TIBC Lab Routine Abnormal weight gain Preop testing Morbid obesity with BMI of 50.0-59.9, adult (HCC) HANH (obstructive sleep apnea) Expected: 05/16/2022 (Approximate), Expires: 05/14/2023 [facility] Work Phone: Comment on above: Expected: 05/16/2022 (Approximate), Expires: 05/14/2023 Start: 05-16-2022 End: 05-14-2023 Parathyrin.intact [Mass/volume] in Serum or Plasma PTH INTACT BLD Lab Routine Abnormal weight gain Preop testing Morbid obesity with BMI of 50.0-59.9, adult (HCC) HANH (obstructive sleep apnea) Expected: 05/16/2022 (Approximate), Expires: 05/14/2023 [facility] Work Phone: Comment on above: Expected: 05/16/2022 (Approximate), Expires: 05/14/2023 Start: 05-16-2022 End: 05-14-2023 Thyrotropin [Units/volume] in Serum or Plasma TSH BLD Lab Routine Abnormal weight gain Preop testing Morbid obesity with BMI of 50.0-59.9, adult (HCC) HANH (obstructive sleep apnea) Expected: 05/16/2022 (Approximate), Expires: 05/14/2023 [facility] Work Phone: Comment on above: Expected: 05/16/2022 (Approximate), Expires: 05/14/2023 Start: 05-16-2022 End: 07-16-2022 VITAMIN B1 (THIAMINE), WHOLE BLOOD VITAMIN B1 (THIAMINE), WHOLE BLOOD Lab Routine Abnormal weight gain Preop testing Morbid obesity with BMI of 50.0-59.9, adult (HCC) HANH (obstructive sleep apnea) Expected: 05/16/2022 (Approximate), Expires: 07/16/2022 [facility] Work Phone: Comment on above: Expected: 05/16/2022 (Approximate), Expires: 07/16/2022 Start: 05-09-2022 Influenza vaccination INFLUENZA (#1) [facility] Start: 05-05-2022 COVID-19 VACCINE (3 - Booster for Pfizer series) COVID-19 VACCINE (3 - Booster for Pfizer series) [facility] Start: 2014 PAP TESTING PAP TESTING [facility] Start: 2012 Urine microalbumin profile DTAP,TDAP,TD (1 - Tdap) [facility] Start: 2011 HEPATITIS C SCREENING HEPATITIS C [facility] Start: 2011 HIV SCREENING HIV SCREENING [facility] Start: 2005 Adult depression screening assessment DEPRESSION SCREENING [facility] Start: 1993 HEPATITIS B (1 of 3 - 3-dose series) HEPATITIS B (1 of 3 - 3-dose series) [facility] End: 05-14-2023 ECG COMPLETE ECG COMPLETE ECG Routine Abnormal weight gain Preop testing Morbid obesity with BMI of 50.0-59.9, adult (HCC) HANH (obstructive sleep apnea) 1 Occurrences starting 05/16/2022 until 05/14/2023 [facility] Work Phone: Comment on above: 1 Occurrences starti ng 05/16/2022 until 05/14/2023 End: 06-13-2023 Radiologic exam chest 2 views XR CHEST 2V FRONTAL/LAT Radiology Routine Abnormal weight gain Preop testing Morbid obesity with BMI of 50.0-59.9, adult (HCC) HANH (obstructive sleep apnea) 1 Occurrences starting 05/16/2022 until 06/13/2023 [facility] Work Phone: Comment on above: 1 Occurrences starti ng 05/16/2022 until 06/13/2023 [facility] Immunizations Immunization Date Immunization Notes Care Provider Simba may 06-18-2022 influenza virus vacc ine, unspecified formulation Noah Walton Work Phone: [facility] Payers Date Payer Category Payer Medicaid [employer] [id number] 2018-Present [phone] [place] [id number] Medicaid [id number] 2018 Medicaid (Managed Care) [employer] [id number] 1993 Unknown [id number] 2.840.1.093587.3.579.2. 593 1993 Unknown [id number] 2.16.840.1.353675.3.579.2. 593 1993 Unknown [id number] 2.16.840.1.027630.3.579.2. 593 1993 Unknown [id number] 2.16.840.1.865120.3.579.2. 593 1993 Unknown [id number] 2.16.840.1.275209.3.579.2. 593 1993 Unknown [id number] 2.16.840.1.497976.3.579.2. 593 1993 Unknown [id number] 2.16.840.1.489534.3.579.2. 593 1993 Unknown [id number] 2.16.840.1.122091.3.579.2. 593 1993 Unknown [id number] 2.16.840.1.179229.3.579.2. 593 1993 Unknown [id number] 2.16.840.1.030874.3.579.2. 593 1993 Unknown [id number] 2.16.840.1.260418.3.579.2. 593 1993 Unknown [id number] 2.16.840.1.630165.3.579.2. 593 1993 Unknown [id number] 2.16.840.1.860753.3.579.2. 593 1993 Unknown [id number] 2.16.840.1.474929.3.579.2. 593 1993 Unknown [id number] 2.16.840.1.640085.3.579.2. 593 1993 Unknown [id number] 2.16.840.1.166899.3.579.2. 593 1993 Unknown [id number] 2.16.840.1.314470.3.579.2. 727 1993 Unknown [id number] 2.16.840.1.273032.3.579.2. 727 1993 Unknown [id number] 2.16.840.1.964908.3.579.2. 727 1993 Unknown [id number] 2.16.840.1.854972.3.579.2. 1259 1959 Unknown [id number] Social History Date Type Detail Facility Start: 04-26-2022 End: 01-27-2023 Tobacco smoking status NHIS Never smoked tobacco [facility] Start: 04-26-2022 End: 01-27-2023 Tobacco use and exposure Smokeless tobacco non-user [facility] Start: 1993 Sex Assigned At Not on file [facility] Start: 04-14-2022 End: 04-24-2022 Exposure to SARS-CoV-2 (event) Not sure [facility] Start: 05-05-2023 End: 09-13-2024 Alcoholic beverage intake Ex-drinker (finding) [facility] Start: 05-05-2023 End: 09-13-2024 History of Social function [facility] Start: 05-05-2023 End: 09-13-2024 Tobacco use panel [facility] Clinical Notes 02-15-2022 to 09-13-2024 Shakira Elizabeth LPN - 09/13/2024 2:50 PM ESTPatient InstructionsPatient InstructionsRosa [...] nursing note reviewed. Exam conducted with a database architect present. Vitals: Estimated body mass index is 53.31 kg/m as calculated from the following: Height as of 23: 5' 1 . Weight as of this [...] Noah Walton DO documented in this encounter [facility] 05-17-[address] - [...] Read Nutrition Guidelines section before next visit. [email or web address]/ [email or web address] [email or web address]?la=en Pre-op goal weight: 276 pounds Protein needs: 70 gm per day Nutrition Monitoring & Evaluation: Weight loss of 1-2 pounds per week and adherence to above recommendations Criteria: Patient update and weight check Need for Follow up: 1 month, please call [phone] documented in this encounter [facility] 05-16-2022 Instructions Rosa Maria Israel MD - 05/16/2022 5:19 PM EDT INSTRUCTIONS: 1) Please contact me (Dr. Israel) if you have not heard about your test results within a few days after you had them done. Thank you: Contact information: [facility] [place] M61/Attention: Dr. Israel [address] [place] [address] 2) Please check with your insurance company regarding cost/coverage of any tests ordered prior to having them completed. Colleen Salcido , Thank you for completing your visit today and we welcome you to the surgical program. We are sure that you will still have some additional questions and encourage you to reach out to your care provider via [facility] OR your Patient Navigator. Patient Navigators are assigned alphabetically by patient last name. The contact information for each Navigator is listed below. Last names A-E= Naga Last names F-L = [email or web address] Last names M-R= [email or web address] Last names S-Z= Martina Additionally, you may [...] to ask for a hard copy. [email or web address] -/[email or web address]/ [email or web address] [email or web address]?la=en Once you complete all of the requirements (testing, consultations, diet, etc) from each provider, please call [phone] and select option #5 to initiate insurance approval. Please note scheduling information It is important to keep track of your scheduled appointments to ensure successful completion of our surgical program. Any missed appointments can further delay your pre-surgical work-up. [facility] does offer an opt-in option for getting text message appointment reminders. Please follow the link below if you would like to opt into this service. [email or web address] As part of [...] these tests. You may call your local [facility] to get an appointment. - Lab work- No appointment is needed for this, you may complete at any [facility]. These are usually fasting labs, please be sure to fast (only water permitted) for 10-12 hours prior to the test. -Sleep Study- Please call [phone] or [phone] to get this appointment set up. -Sleep Medicine Consult- (Only needed if sleep study confirms sleep apnea) Please call [phone] or [phone] to schedule an appointment. Any testing that is completed outside of [facility] will need faxed to [phone]. We look forward to working with you on this journey, Rosa Maria Israel MD documented in this encounter [facility] 05-16-2022 Note HNO ID: [id number] Author: Rosa Maria Israel MD Service: ? [...] and diagnosed-she is on a list for [id number] sleep study was about Soch[employer]: -single/: -children: yes -occupation: works at [employer] -tobacco use: non-smoker -ETOH: 2 per month ALL: See [facility] LABS: IMAGING: PROC: CARDIAC: MEDS: See [facility] PMH: -depression/anxiety-Prozac -has taken phentermine (1/2 tablet) [...] cardiac, valvular or vascular issues *no h/o RI, CAD, CHF, no cp/palpitations Respiratory: Denies any [...] LMP?//rash/discharge/p elvic pain/menstrual (more content not included)... [facility] 05-16-2022 Note HNO ID: [id number] Author: Micaela Cavazos RD Service: ? Author Type: Registered Dietitian Type: Progress Notes Filed: 05/17/2022 1:34 PM Note Text: [facility] Nutrition Therapy: Virtual Consult - Initial Assessment [...] limited to ADL's although she occasionally walks. [place] body weight: 128 lbs. Excess body weight: 167 lbs. Goal weight pre-op: 276 lbs. Protein needs estimated: 70 (1.2 g protein/kg IBW) Patient meets the National Institutes of Health guidelines for weight loss surgery and has [employer] therefore is required to complete 6 [...] Read Nutrition Guidelines section before next visit. [email or web address] -/scassets/files/org/[email or web address]/ guides/bmigui debook-[email or web address]?la=en Pre-op goal weight: 276 pounds Protein (more content not included)... [facility] 05-16-2022 History of Present illness Narrative [...] and diagnosed-she is on a list for [id number]-[id number]-gcg sleep study was about [employer]: -single/: -children: yes -occupation: works at [employer] -tobacco use: non-smoker -ETOH: 2 per month ALL: See [facility] LABS: IMAGING: PROC: CARDIAC: MEDS: See Epic [...] cardiac, valvular or vascular issues *no h/o RI, CAD, CHF, no cp/palpitations Respiratory: Denies any [...] B)women: LMP?//rash/discharge/p elvic pain/menstrual problems *LMP: end of March-PCOS C) either: No known h/o any chronic [...] which included preparing to see the patient, [id number] patient care, completing clinical documentation, obtaining and/or reviewing separately obtained history, counseling and educating the patient/family/caregiver, ordering medications, tests, or procedures, and care coordination (not separately reported). documented in this encounter [facility] 05-16-2022 History of Present illness Narrative [facility] Nutrition Therapy: Virtual Consult - Initial Assessment [...] limited to ADL's although she occasionally walks. [place] body weight: 128 lbs. Excess body weight: 167 lbs. Goal weight pre-op: 276 lbs. Protein needs estimated: 70 (1.2 g protein/kg IBW) Patient meets the National Institutes of Health guidelines for weight loss surgery and has [employer] Insurance therefore is required to complete 6 [...] Nutrition Guidelines section before next visit. https://[email or web address] -/scassets/files/org/[email or web address]/ guides/[email or web address] hx?la=en Pre-op goal weight: 276 pounds Protein needs: 70 gm per day Nutrition Monitoring & Evaluation: Weight loss of 1-2 pounds per week and adherence to above recommendations Criteria: Patient update and weight check Need for Follow up: 1 month, please call [phone] MNT Billing Type: Initial Assess/15 min 2 units Signed by: Micaela Cavazos RD documented in this encounter [facility] 04-26-2022 Note HNO ID: [id number] Author: Carlos Tariq MD Service: ? Author Type: Physician Type: Progress Notes Filed: 04/26/2022 2:32 PM Note Text: Consultation requested by Dr. Noah Walton for an opinion regarding incisional hernia. My final recommendations will be communicated back to the requesting physician by way of shared medical record or letter via US mail Pt w remote hx of saul hernandez. Was seen in ED at [facility] for [...] appreciative of the care Carlos Tariq MD [facility] 03-21-2022 Note PROCEDURE: XR FOOT L T MIN 3 VIEWS COMPARISON: None. HISTORY: Pain in left foot FINDINGS: BONES:No fracture, acute abnormality, or significant arthropathy. SOFT TISSUES:Negative. No visible soft tissue swelling. EFFUSION:None visible. OTHER: Negative. IMPRESSION: No acute abnormality Electronically authenticated by: AYAD MALCOLM Date: 2022-03-21 19:14 [facility] 02-15-2022 Note PROCEDURE: XR ANKLE LT MIN 3 V COMPARISON: 02/07/2020 HISTORY: Pain of left ankle joint FINDINGS: BONES:No fracture, acute abnormality, or significant arthropathy. SOFT TISSUES:Negative. No visible soft tissue swelling. EFFUSION:None visible. OTHER: Negative. IMPRESSION: No acute abnormality Electronically authenticated by: AYAD MALCOLM Date: 2022-02-15 07:35 [facility] Evaluation note Diagnosis Abnormal weight gain- Primary Preop testing Preoperative examination, unspecified Morbid obesity with BMI of 50.0-59.9, adult (HCC) Morbid obesity HANH (obstructive sleep apnea) Obstructive sleep apnea (adult) (pediatric) documented in this encounter [facility] note* Diagnosis Body mass index 50.0-59.9, adult (HCC)- Primary Body Mass Index 50.0-59.9, adult Dietary counseling and surveillance Dietary surveillance and counseling documented in this encounter [facility] note* Diagnosis Sweating abnormality Status post hysterectomy [...] 12 LDS W/I&R Rosa Maria Israel MD [address] [place] [address] [facility] [address] [id number] [place] [address] Referral ID Status Reason Start Date Expiration Date Visits Requested Visits Authorized [id number] Pending Review Auto-Generat ed Referral 05/16/2022 05/14/2023 1 1 [facility] Summary Purpose Family History No Family History [...] or prosecute any alcohol or drug abuse patient.[facility] the event this information is protected by the Federal Confidentiality of Alcohol and Drug Abuse Patient Records regulations: The Federal rules restrict any use of the information to criminally investigate or prosecute any alcohol or drug abuse patient.[facility] Reason for Visit (unrecogniz ed section and content) Reason Comments New Patient Reason Comments Patient Education Assessment Reason Comments Excessive Sweating Care Teams (unrecognized sec tion and content) Weather Reporter Relationship Specialty Start Date End Date Noah Walton, DO [address] [place] [address] Referring POLICE COMMANDING OFFICER 04/23/22 Weather Reporter Relationship Specialty Start Date End Date Noah Walton, DO [address] [place] [address] Referring POLICE COMMANDING OFFICER 04/23/22 Weather Reporter Relationship Specialty Start Date End Date Valerie Donato MD [address] [place] [address] PCP - General Family Medicine 01/27/23 Weather Reporter Relationship Specialty Start Date End Date Valerie Donato MD [address] [place] [address] PCP - General Family Medicine 01/27/23 Weather Reporter Relationship Specialty Start Date End Date Valerie Donato MD [address] [facility] [address] PCP - General Family Medicine 01/27/23 INFORMATION SOURCE (unrecogn ized section and content) DATE CREATED AUTHOR 05/18/2022 [facility] DATE CREATED AUTHOR AUTHOR'S ORGANIZ ATION 01/01/2023 [facility] DATE CREATED AUTHOR AUTHOR'S ORGANIZ ATION 01/08/2024 [facility] DATE CREATED AUTHOR AUTHOR'S ORGANIZ ATION 09/19/2024 [facility] EPIC FOR RECORDS PERTAINING TO PATIENTS WHO ARE [...] BE BASED ON THE PRIMARY CLINICAL RECORDS. [employer] provides no warranty or guarantee of the accuracy or completeness of information in this document.
[2024-12-26 08:10] LABS: Age Gdln ACOG Testing Note (.); HPV Aptima Negative (Negative); IGP, Aptima HPV, rfx 16/18,45 Note (.)
== END 2024-12-21 19:43 | disposition home or self-care (01) ==
LOC: LAB 19:42
PROVIDERS: PCP Family Medicine; Visit Provider Obstetrics & Gynecology
DX: Z01.419 Encounter for gynecological examination (general) (routine) without abnormal findings (principal)
CPT/HCPCS: 87624; 88175

== ENCOUNTER 2025-03-16 15:36 | Emergency (ER) | payer OTHER, SELFPAY ==
--- OUTSIDE RECORDS SUMMARY | 2025-01-12 11:30 | XMS_ITS ---
Author Organization [facility] [place] Address [address] [place] [address] Care Team Providers Care Interior Painter Name Role Phone Caesar Donato Primary Care Provider Allergies Allergen (clinical drug ingredient) Drug/Non Drug Allergy documented on EMR Reaction Allergy Type Onset Date Status meloxicam Meloxicam headache Drug Allergy Active Results Component Value Reference Range Notes UA DIP NONAUTO WO MICRO (810 02) - IN OFFICE Reviewed date:01/12/2025 03:48:29 PM Interpretation: Performing Lab: Notes/Report: COLOR Yellow CLARITY Dark GLUCOSE Neg BILIRUBIN Neg KETONE Neg SPECIFIC GRAVITY 1.030 BLOOD Neg PH 5 PROTEIN Neg UROBILINOGEN Neg NITRITE Neg LEUKOCYTE ESTERASE ++ REASON FOR VISIT diet, UTI s/s Medications Medication SIG (Take, Route, Frequency, Duration) Notes Start Date End Date Status Ondansetron 4 MG 1 tablet on the tong ue and allow to dissolve Orally Once a day for 30 days 05/31/2024 Active Nabumetone 500 MG 1 tablet Orally Twic e a day for 30 day(s) 09/20/2024 Active Pristiq 50 MG 1 tablet Orally Once a day for 30 days 09/20/2024 Active Adipex-P 37.5 MG 1 tablet before zay kfast Orally Once a day 01/12/2025 Active Cyclobenzaprine HCl 10 MG 1 tablet Orall y tid for 30 days 10/27/2024 Active Fioricet 50-300-40 MG 1 capsule as neede d Orally dx G43.909 every 4 hrs for 30 days Active Cephalexin 500 MG 2 tabs Orally bid fo r 10 days 01/12/2025 Active Pyridium 200 MG 1 tablet after meals Orally Three times a day for 2 days 01/12/2025 Active Social History Tobacco Use: Social History Observation Description Date Details (start date - stop date) Never Smoker NA - NA Tobacco Use/Smoking Question Answer Notes Patient is a nonsmoker AUDIT-C (Standard) Question Answer Notes Did you have a drink containing alcohol in the p ast year? No Points 0 Interpretation Negative Vital Signs Weight 295 lbs 01/12/2025 Height 61 in 01/12/2025 Blood pressure systolic 118 mm Hg 01/13/20 25 Blood pressure diastolic 72 mm Hg 025 BMI 55.73 kg/m2 01/12/2025 Encounters Encounter Location Date Provider Diagnosis [address] [address] 01/12/2025 Caesar Donato Dysuria R30.0 Assessments Encounter Date Diagnosis (ICD Code) Assessment Notes Treatment Notes Treatment Clinical Notes Section Notes 01/12/2025 Dysuria (ICD-10 - R30.0) Plan Of Treatment Medication Medication Name Sig Start Date Stop Date Notes Adipex-P 37.5 MG 1 tablet before zay kfast Orally Once a day 01/12/2025 Cephalexin 500 MG 2 tabs Orally bid for 10 days 01/12/2025 Pyridium 200 MG 1 tablet after meals Orally Three times a day for 2 days 01/12/2025 Next Appt Details Provider Name:Caesar Donato, 04:15:00 PM, [address] [place], [address], Progress Notes * Connie SALCIDO MDOB: 4 (29 yo F)Acc No.[id number]:01/12/2025 Progress Note Patient: Shane MEENAMILADYSConnie Provider: Matty Donato ([facility])MD :1995 A ge:29 Y S ex:Female Date:01/12/2025 Address:[address] [place] [address], [facility], [id number] Check In:03:32 PM ESTCheck O ut:04:07 PM EST Subjective: * Chief Complaints: * d iet, UTI s/s 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, left an kle Modified On:06/18/2023 Status:confirmed M24.571 Contracture, right a nkle Modified On:06/18/2023 Status:confirmed M72.2 Plantar fascial fibr omatosis Modified On:06/25/2023 Status:confirmed M76.62 Achilles tendinitis, left leg Modified On:06/25/2023 Status:confirmed M76.61 Achilles tendinitis, right leg Modified On:06/25/2023 Status:confirmed E66.9 Obesity Modified On:09/11/2023 Status:confirmed R10.31 Right lower quadrant abdominal pain Modified On:08/18/2023 Status:confirmed J01.90 Acute sinusitis Modified On:12/04/2023 Status:confirmed K52.9 Acute gastroenteriti s Modified On:12/17/2023 Status:confirmed M79.672 Left foot pain Modified On:02/03/2024 Status:confirmed M54.30 Sciatica Modified On:02/20/2024 Status:confirmed F41.9 Anxiety Modified On:04/09/2024 Status:confirmed F32.9 Depression Modified On:04/09/2024 Status:confirmed M25.551 Hip pain, acute, rig ht Modified On:09/10/2024 Status:confirmed * Medical History: * Surgical History: L aparoscopic hysterectomy with cystoscopy, bilateral salpingectomy 04/10/2023- Section x2 Gallbladder Right Ankle arthroscopy for aided repair of osteochondral defect of talus, arthrotomy for cartilage grafting, peroneal tendon repair, lateral ankle stabilization, transplantation of bone marrow aspirate 04/09/2019 * Hospitalization/Major Diagno stic Procedure: s ee above * Family History: F ather: , Heart Disease, diagnosed with Unspecified heart disease. M other: alive, hypertension, Heart Disease, diagnosed with Unspecified essential hypertension, Unspecified heart disease. B rother(s): alive. S ister(s): alive, Heart Disease, diagnosed with Unspecified heart disease. S on(s): alive. D cherelle(s): alive. 1 brother(s) , 1 sister(s) . 1 son(s) , 1 daughter(s) . . * Social History: T obacco Use: T obacco Use/Smoking P atient is a n onsmoker D rug/Alcohol: A KEHINDE-C (Standard) D id you have a drink containing alcohol in the past year? N o P oints 0 I nterpretation N egative * Medications: T akingAdipex-P(Phentermine HCl) 37.5 MG Tablet 1 tablet before breakfast Orally Once a day Cyclobenzaprine HCl 10 MG Tablet 1 tablet Orally tid Fioricet(Hkvqaholuk-MKEV-Onvkjmpr) 50-300-40 MG Capsule 1 capsule as needed Orally dx G43.909 every 4 hrs Nabumetone 500 MG Tablet 1 tablet Orally Twice a day Ondansetron 4 MG Tablet Disintegrating 1 tablet on the tongue and allow to dissolve Orally Once a day Pristiq(Desvenlafaxine Succinate ER) 50 MG Tablet Extended Release 24 Hour 1 tablet Orally Once a day Medication List reviewed and reconciled with the patientTaking Adipex-P(Phentermine HCl) 37.5 MG Tablet 1 tablet before breakfast Orally Once a day Taking Cyclobenzaprine HCl 10 MG Tablet 1 tablet Orally tid Taking Fioricet(Pkurennclp-EAQP-Kryjpcmm) 50-300-40 MG Capsule 1 capsule as needed Orally dx G43.909 every 4 hrs Taking Nabumetone 500 MG Tablet 1 tablet Orally Twice a day Taking Ondansetron 4 MG Tablet Disintegrating 1 tablet on the tongue and allow to dissolve Orally Once a day Taking Pristiq(Desvenlafaxine Succinate ER) 50 MG Tablet Extended Release 24 Hour 1 tablet Orally Once a day Medication List reviewed and reconciled with the patient * Allergies: M eloxicam: headacheno[Allergies Verified] Objective: * Vitals: W t:295lbs, Ht: 61 in, BP:118/72mm Hg, BMI:55.73Index, Ht-cm: 154.94 cm, Wt-k.81 kg. Assessment: * Assessment: 1. D ysuria - R30.0 (Primary) Plan: * Treatment: * Labs: * L ab: UA DIP NONAUTO WO MICRO (15388) - IN OFFICE (Collection Date & Time - 01/12/2025) Value Reference Range C OLOR Yellow * C LARITY Dark * G LUCOSE Neg * B ILIRUBIN Neg * K ETONE Neg * S PECIFIC GRAVITY 1.030 * B LOOD Neg * P H 5 * P ROTEIN Neg * U ROBILINOGEN Neg * N ITRITE Neg * L EUKOCYTE ESTERASE ++ * Procedure Codes: 8 1002 URINALYSIS WO MICRO * * Sign off status: Completed Visit Status: C HK (Check Out) true * Provider: Matty Donato ([facility])MD Date: 0 01/12/2025 Generated for Gerhardi ng/Theresag/eTransmitting on: 0 03/16/2025 03:53 PM EDT
--- OUTSIDE RECORDS SUMMARY | 2025-02-22 12:27 | XMS_ITS ---
Author Organization The [facility] in [place] Address [address] [place] [address] Care Team Providers Care Legal Process Specialist Name Role Phone Caesar Donato Primary Care Provider [phone] REASON FOR VISIT refill Medications Medication SIG (Take, Route, Fr equency, Duration) Notes Start Date End Date Status Fioricet 50-300-40 MG 1 capsule as neede d Orally dx G43.909 every 4 hrs for 30 days Active Encounters Encounter Location Date Provider Diagnosis [facility] [address] [place] [address] 02/22/2025 Caesar Donato Obesity E66.9 Assessments Encounter Date Diagnosis (ICD Code) Assessment Notes Treatment Notes Treatment Clinical Notes Section Notes 02/22/2025 Obesity (ICD-10 - E66.9) Plan Of Treatment Medication Medication Name Sig Start Date Stop Date Notes Fioricet 50-300-40 MG 1 capsule as neede d Orally dx G43.909 every 4 hrs for 30 days Next Appt Details Provider Name:Caesar Donato, 04:15:00 PM, [address] [place], [address], Progress Notes * Connie SALCIDO MDOB: 4 (29 yo F)Acc No.[id number]:02/22/2025 Patient: Connie ARITA :1995 A ge:29 Y S ex:Female Address:[address] [place] [address], [address], [place] [address] * Refills Refill Fioricet Capsule, 50-300-40 MG, Orally dx G43.909, 30, 1 capsule as needed, every 4 hrs, 30 days, Refills=0 * true * Date: Generated for Galo nix/Vicky/Anitaitting on: 0 03/16/2025 03:54 PM EDT
--- OUTSIDE RECORDS SUMMARY | 2025-03-10 09:15 | XMS_ITS ---
Author Organization [facility] [place] Address [address] [place] [address] Care Team Providers Care Television Maintenance Man Name Role Phone Caesar Donato Primary Care Provider Allergies Allergen (clinical drug ingredient) Drug/Non Drug Allergy documented on EMR Reaction Allergy Type Onset Date Status meloxicam Meloxicam headache Drug Allergy Active Results Component Value Reference Range Notes UA DIP NONAUTO WO MICRO (810 02) - IN OFFICE (Not yet reviewed by provider) Interpretation: Performing Lab: Notes/Report: COLOR yellow CLARITY cloudy GLUCOSE n BILIRUBIN n KETONE n SPECIFIC GRAVITY 1.020 BLOOD 250++ PH 5 PROTEIN trace UROBILINOGEN n NITRITE n LEUKOCYTE ESTERASE ++ REASON FOR VISIT thinks UTI again- urinary urgency, some burning with urination, Did have UTI in January, took ATB and felt like it went away, Having a lot of person issues, anxiety has been bad lately Medications Medication SIG (Take, Route, Frequency, Duration) Notes Start Date End Date Status Cephalexin 500 MG 2 tabs Orally bid fo r 10 days 01/12/2025 Active Pristiq 50 MG 1 tablet Orally Once a day for 30 days 09/20/2024 Active Ondansetron 4 MG 1 tablet on the tong ue and allow to dissolve Orally Once a day for 30 days PRN 05/31/2024 Active Wxzikcmchk-AMRB-Zljndinu 50-300-40 MG TAKE 1 CAPSULE BY MOUTH EVERY 4 HOURS NEEDED for 30 PRN 02/22/2025 Active Cyclobenzaprine HCl 10 MG 1 tablet Orall y tid for 30 days PRN 10/27/2024 Active Pyridium 200 MG 1 tablet after meals Orally Three times a day for 2 days 01/12/2025 Active hydrOXYzine HCl 25 MG 1 tablet as needed Orally qid for 10 days 03/10/2025 Active Social History Tobacco Use: Social History Observation Description Date Details (start date - stop date) Never Smoker NA - NA Tobacco Use/Smoking Question Answer Notes Patient is a nonsmoker Vital Signs Weight 300.0 lbs 03/10/2025 Height 61 in 03/10/2025 Blood pressure systolic 126 mm Hg 03/10/20 25 Blood pressure diastolic 84 mm Hg 025 BMI 56.68 kg/m2 03/10/2025 Encounters Encounter Location Date Provider Diagnosis [facility] [address] [place] [address] 03/10/2025 Caesar Donato Urinary urgency R39. 15 ; Depression F32.9 and Anxiety F41.9 Assessments Encounter Date Diagnosis (ICD Code) Assessment Notes Treatment Notes Treatment Clinical Notes Section Notes 03/10/2025 Urinary urgency (ICD-10 - R39.15) 03/10/2025 Depression (ICD-10 - F32.9) 03/10/2025 Anxiety (ICD-10 - F41.9) Plan Of Treatment Medication Medication Name Sig Start Date Stop Date Notes Cephalexin 500 MG 2 tabs Orally bid for 10 days 01/12/2025 Pristiq 50 MG 1 tablet Orally Once a day for 30 days 09/20/2024 Pyridium 200 MG 1 tablet after meals Orally Three times a day for 2 days 01/12/2025 hydrOXYzine HCl 25 MG 1 tablet as needed Orally qid for 10 days 03/10/2025 Pending Test Test Name Order Date UA DIP NONAUTO WO MICRO (33712) - IN OFF ICE 03/10/2025 Next Appt Details Provider Name:Caesar Donato, 04:15:00 PM, [address] [place], [address], Progress Notes * Connie SALCIDO MDOB: 4 (29 yo F)Acc No.[id number]:03/10/2025 Progress Note Patient: Connie ARITA Provider: Matty Donato ([facility])MD :1995 A ge:29 Y S ex:Female Date:03/10/2025 Address:[address] [id number] Check In:01:12 PM ESTCheck O ut:01:53 PM EST Subjective: * Chief Complaints: * t hinks UTI again- urinary urgency, some burning with urinationDid have UTI in January, took ATB and felt like it went awayHaving a lot of person issues, anxiety has been bad lately * HPI: G eneral: uti sympoms - returned - was curred stress very high. * ROS: E ENT: hearing changes d enies. v isual changes d enies.?non-healing mouth sores d enies. s wollen glands or neck lumps d enies. h oarseness d enies. s ore throat d enies. d ifficulty swallowing d enies. n ose bleeds d enies. n blanca congestion d enies. e ar ache d enies. e ar discharge?denies. r inging in ears d enies. l ight sensitivity d enies. e ye pain d enies. b lurring d enies. e ye irritation d enies. d ouble vision d enies.?vision loss d enies. G eneral/Constitutional: Sweats: D enies. F atigue d enies. S leep problems d enies. A norexia d enies. M alaise d enies. W eight loss d enies.?Fatigue or Weakness d enies. F ever or Chills d enies. C ardiovascular: Shortness of Breath w/lying flat d enies. L ightheadedness/dizziness d enies. C hest tightness/ heavy pressure d enies. S welling of legs, ankles, or feet d enies. W aking up with shortness of breath d enies. C hest pain denies. P alpitations d enies. W eight gain d enies. R espiratory: Chronic or frequent cough d enies. C oughing up blood?denies. D ifficulty breathing d enies. P roductive cough d enies. S noring?denies. S hortness of breath that awakens from sleep (PND) d enies. C hest pain d enies. S putum production d enies. W heezing d enies. M usculoskeletal: Joint pain d enies. J oint Fluid d enies. B ack pain d enies. K nee pain d enies. N gomez pain d enies. J oint Stiffness d enies. M uscle cramps d enies. W eakness of muscles d enies. A rthritis d enies. M uscle aches d enies. P ain in shoulder(s) d enies. S wollen joints d enies. 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, left an kle Modified On:06/18/2023U Status:confirmed M24.571 Contracture, right a nkle Modified On:06/18/2023 Status:confirmed M72.2 Plantar fascial fibr omatosis Modified On:06/25/2023U Status:confirmed M76.62 Achilles tendinitis, left leg Modified On:06/25/2023U Status:confirmed M76.61 Achilles tendinitis, right leg Modified On:06/25/2023U Status:confirmed E66.9 Obesity Modified On:09/11/2023U Status:confirmed R10.31 Right lower quadrant abdominal pain Modified On:08/18/2023U Status:confirmed J01.90 Acute sinusitis Modified On:12/04/2023U Status:confirmed K52.9 Acute gastroenteriti s Modified On:12/17/2023U Status:confirmed M79.672 Left foot pain Modified On:02/03/2024U Status:confirmed M54.30 Sciatica Modified On:02/20/2024U Status:confirmed F41.9 Anxiety Modified On:08/02/2024W/U Status:confirmed F32.9 Depression Modified On:04/09/2024W/U Status:confirmed M25.551 Hip pain, acute, rig ht Modified On:09/10/2024W/U Status:confirmed * Medical History: * Surgical History: L aparoscopic hysterectomy with cystoscopy, bilateral salpingectomy 3C- Section x2 Gallbladder Right Ankle arthroscopy for [...] Unspecified heart disease. S on(s): alive. D georginaer(s): alive. 1 brother(s) , 1 sister(s) . 1 son(s) , 1 daughter(s) . . * Social History: T obacco Use: T obacco Use/Smoking P atient is a n onsmoker * Medications: T powgxMndxbmscdk-HXTK-Iajvciff 50-300-40 MG Capsule TAKE 1 CAPSULE BY MOUTH EVERY 4 HOURS NEEDED , Notes to Pharmacist: PRNCyclobenzaprine HCl 10 MG Tablet 1 tablet Orally tid , Notes to Pharmacist: PRNOndansetron 4 MG Tablet Disintegrating 1 tablet on the tongue and allow to dissolve Orally Once a day , Notes to Pharmacist: PRNTaking Htbnkngxht-RTSA-Hykajgcn 50-300-40 MG Capsule TAKE 1 CAPSULE BY MOUTH EVERY 4 HOURS NEEDED , Notes to Pharmacist: PRNTaking Cyclobenzaprine HCl 10 MG Tablet 1 tablet Orally tid , Notes to Pharmacist: PRNTaking Ondansetron 4 MG Tablet Disintegrating 1 tablet on the tongue and allow to dissolve Orally Once a day , Notes to Pharmacist: PRNDiscontinuedAdipex-P(Phentermine HCl) 37.5 MG Tablet 1 tablet before breakfast Orally Once a day Cephalexin 500 MG Tablet 2 tabs Orally bid Nabumetone 500 MG Tablet 1 tablet Orally Twice a day Pristiq(Desvenlafaxine Succinate ER) 50 MG Tablet Extended Release 24 Hour 1 tablet Orally Once a day Pyridium(Phenazopyridine HCl) 200 MG Tablet 1 tablet after meals Orally Three times a day Medication List reviewed and reconciled with the patientDiscontinued Adipex-P(Phentermine HCl) 37.5 MG Tablet 1 tablet before breakfast Orally Once a day Discontinued Cephalexin 500 MG Tablet 2 tabs Orally bid Discontinued Nabumetone 500 MG Tablet 1 tablet Orally Twice a day Discontinued Pristiq(Desvenlafaxine Succinate ER) 50 MG Tablet Extended Release 24 Hour 1 tablet Orally Once a day Discontinued Pyridium(Phenazopyridine HCl) 200 MG Tablet 1 tablet after meals Orally Three times a day Medication List reviewed and reconciled with the patient * Allergies: M eloxicam: headacheno[Allergies Verified] Objective: * Vitals: W t:300.0lbs, Ht: 61 in, BP:126/84mm Hg, BMI:56.68Index, Ht-cm: 154.94 cm, Wt-k.08 kg. * Examination: P hysical Exam: GENERAL: w ell developed, well nourished, in no acute distress. HEAD: n ormocephalic/atraumatic. EYES: p upils equal, round and reactive to light, conjunctivae and sclerae normal. EARS: n o deformity or lesion of external ear, canals and TM appear normal bilaterally, TM's intact, not inflamed with normal light reflex, hearing grossly normal to conversational speech. NOSE: n o deformity, discharge, inflammation, or lesions.? MOUTH: m ucous membranes moist, normal oropharynx and posterior pharynx without lesions or exudates, tongue normal, dentition normal. NECK: n gomez supple, no masses or palpable cervical nodes, trachea midline, thyroid without nodules, masses, tenderness, or enlargement. CHEST: n o chest wall deformity, no chest wall tenderness.? LUNGS: n ormal respiratory effort and clear to auscultation, no wheezes, rales, or rhonchi, good air exchange. CARDIO: r egular rate and rhythm, normal S1 and S2, nor murmur, rub, or gallop. PULSES: n ormal capillary refill. ABDOMEN: s oft, non-distended, non-tender, no masses. MUSCULOSKELETAL: n o deformity or scoliosis noted, normal range of motion, joints normal, no erythema, edema, effusion, or ecchymosis. EXTREMITY: n o clubbing, cyanosis, edema, or deformity with normal ROM in both upper and lower bilateral extremities. NEUROLOGIC: g rossly normal. SKIN: n o rashes, ulcerations, or suspicious lesions. LYMPH NODES: n o cervical adenopathy, nodes normal. MENTAL STATUS: a lert and oriented x3, normal mood and affect. Assessment: * Assessment: 1. U rinary urgency - R39.15 (Primary) 2 . D epression - F32.9 ?3. A nxiety - F41.9 Plan: * Treatment: * Labs: * L ab: UA DIP NONAUTO WO MICRO (40550) - IN OFFICE (Collection Date & Time - 03/10/2025) Value Reference Range C OLOR yellow * C LARITY cloudy * G LUCOSE n * B ILIRUBIN n * K ETONE n * S PECIFIC GRAVITY 1.020 * B LOOD 250++ * P H 5 * P ROTEIN trace * U ROBILINOGEN n * N ITRITE n * L EUKOCYTE ESTERASE ++ * Procedure Codes: 8 1002 URINALYSIS WO MICRO * Preventive Medicine: Screenings/Counseling: B MA ACTION PLAN Above Normal BMI Follow-up D ietary management education, guidance, and counseling * * Sign off status: Completed Visit Status: C HK (Check Out) true * Provider: Matty Donato ([facility])MD Date: 0 03/10/2025 Generated for Printi ng/Faxing/eTransmitting on: 03/16/2025 03:53 PM EDT History and Physical Notes * HPI (History of Present Illness) Category Sub-Category Detail Notes Category Not es General uti sympoms - returned - was curred stress very high Examination Category Sub-Category Detail Notes Category Not es Physical Exam GENERAL: well developed, well nourished, in no acute distress HEAD: normocephalic/atraum atic EYES: pupils equal, round and reactive to light, conjunctivae and sclerae normal EARS: no deformity or lesi on of external ear, canals and TM appear normal bilaterally, TM's intact, not inflamed with normal light reflex, hearing grossly normal to conversational speech NOSE: no deformity, discha rge, inflammation, or lesions MOUTH: mucous membranes [place] st, normal oropharynx and posterior pharynx without lesions or exudates, tongue normal, dentition normal NECK: neck supple, no mass es or palpable cervical nodes, trachea midline, thyroid without nodules, masses, tenderness, or enlargement CHEST: no chest wall deform ity, no chest wall tenderness LUNGS: normal respiratory e ffort and clear to auscultation, no wheezes, rales, or rhonchi, good air exchange CARDIO: regular rate and rhy thm, normal S1 and S2, nor murmur, rub, or gallop PULSES: normal capillary ref ill ABDOMEN: soft, non-distended, non-tender, no masses RECTAL: MUSCULOSKELETAL: no deformity or scol iosis noted, normal range of motion, joints normal, no erythema, edema, effusion, or ecchymosis EXTREMITY: no clubbing, cyanosi s, edema, or deformity with normal ROM in both upper and lower bilateral extremities NEUROLOGIC: grossly normal SKIN: no rashes, ulceratio ns, or suspicious lesions LYMPH NODES: no cervical adenopat hy, nodes normal MENTAL STATUS: alert and oriented x 3, normal mood and affect
[2025-03-16 15:40] VITALS: BP 138/82; PULSE 97; TEMP 36.9; O2SAT 99; BMI 57.1
--- OUTSIDE RECORDS SUMMARY | 2025-03-16 15:53 | XMS_ITS | Encounter Summary ---
Author Organization [facility] Address [address] [place] [address] Care Team Providers Care Activity Manager Name Role Phone Noah Walton DO Unavailable [phone] Source Comments In the event this information is protected by the Federal Confidentiality of Alcohol and Drug AbusePatient Records regulations: The Federal rules restrict any use of the information to criminally investigate or prosecute any alcohol or drug abuse patient.[facility] Encounter Details Date Type Department Care Team (Late st Contact Info) Description 05/21/2022 Patient Msg Family Medicine [address] [place], [place] [id number] Provider, [facility] Appointments Needed Social History Tobacco Use Types Packs/Day Years Used Date Smoking Tobacco: Never Smokeless Tobacco: Never Area Deprivation Index Answer Date Francois rded National Score (1-100), lower number is lower ri sk 88 04/26/2022 State Score (1-10), lower number is lower risk N ot on file 04/26/2022 Data from: https://www.neighborhoodatlas.medicine.[facility].edu/. Last address used for calculation [address] 04/26/2022 Comments No Sex and Gender Information Value Date Recorded Sex Assigned at Not on file Legal Sex Female 9:34 AM EDT Gender Identity Not on file Sexual Orientation Not on file COVID-19 Exposure Response Date Recorded In the last 10 days, have yo u been in contact with someone who was confirmed or suspected to have Coronavirus/COVID-19? No / Unsure 04/24/2022 3:44 PM EDT documented as of this encounter Plan of Treatment Not on file documented as of this encounter Visit Diagnoses Not on filedocumented in this encounter Care Teams Activity Manager Relationship Specialty [place] [address] [place] [id number] Referring Soap Tender 04/23/22 documented as of this encounter
--- OUTSIDE RECORDS SUMMARY | 2025-03-16 15:53 | XMS_ITS | Encounter Summary ---
Author Organization [facility] Address [address] [place] [address] Care Team Providers Care Barrel Brander Name Role Phone Rojelio Donato MD Primary Care Provider [phone] Encounter Details Date Type Department Care Team (Late st Contact Info) Description 01/24/2023 Abstract [facility] [address] [place] [address] Julieta Garcia PA [address] [place] [address] Dr [address], [place] [address] Social History Tobacco Use Types Packs/Day Years Used Date Smoking Tobacco: Never Smokeless Tobacco: Never Tobacco Cessation:Counseling Given: Not Answered Alcohol Use Standard Drinks/Week Comments Not Currently 0 (1 standard drink = 0.6 oz pur e alcohol) Comments Unknown Sex and Gender Information Value Date Recorded Sex Assigned at Not on file Legal Sex Female 11:47 PM EDT Gender Identity Not on file Sexual Orientation Not on file COVID-19 Exposure Response Date Recorded In the last 10 days, have yo u been in contact with someone who was confirmed or suspected to have Coronavirus/COVID-19? No / Unsure 01/27/2023 10:35 AM EDT documented as of this encounter Plan of Treatment Upcoming Encounters Date Type Department Care Team (Late st Contact Info) Description 12/28/2025 4:00 PM EDT Office Visit [facility] [address] [place] [address] Noah Walton, DO [address] [place]ne [place], [facility] documented as of this encounter Visit Diagnoses Not on filedocumented in this encounter Care Teams Barrel Brander Relationship Specialty Start Date End Date Rojelio Donato MD PCP - General Family Medicine 01/27/23 documented as of this encounter
--- OUTSIDE RECORDS SUMMARY | 2025-03-16 15:53 | XMS_ITS | Encounter Summary ---
Author Organization [facility] Address [address] [place] [address] Care Team Providers Care Dental Services Director Name Role Phone Rojelio Donato MD Primary Care Provider [phone] Encounter Details Date Type Department Care Team (Late Contact Info) Description 12/30/2024 Orders Only [facility] [address] [place] [address] Nena Wilson MA [address] [place] [address] Social History Tobacco Use Types Packs/Day Years Used Date Smoking Tobacco: Never Smokeless Tobacco: Never Alcohol Use Standard Drinks/Week Comments Not Currently 0 (1 standard drink = 0.6 oz pur e alcohol) Comments No Sex and Gender Information Value Date Recorded Sex Assigned at Not on file Legal Sex Female 11:47 PM EDT Gender Identity Not on file Sexual Orientation Not on file documented as of this encounter Plan of Treatment Upcoming Encounters Date Type Department Care Team (Late st Contact Info) Description 12/28/2025 4:00 PM EDT Office Visit [facility] [address] [place] [address] Noah Walton DO [address], [place] [id number] documented as of this encounter Procedures Procedure Name Priority Date/Time Associated Diagnosis Comments PAP SMEAR Routine 12/21/2024 12:00 AM EDT documented in this encounter Results * Pap Smear (12/21/2024 12:00 AM EDT) Swab Cervical swab / Unknown us Noah Isabelle DO LAB CYTOLOGY ORDERABLES Final Re sult EXTERNAL LAB documented in this encounter Visit Diagnoses Not on filedocumented in this encounter Care Teams Dental Services Director Relationship Specialty Start Date End Date Rojelio Donato MD PCP - General Family Medicine 01/27/23 documented as of this encounter
--- OUTSIDE RECORDS SUMMARY | 2025-03-16 15:53 | XMS_ITS | Clinical Summary ---
Author Organization [facility] Address [address] [place] [address] Care Team Providers Care Show Worker Name Role Phone Rojelio Donato MD Primary Care Provider [phone] Allergies Active Allergy Reactions Criticality Noted Date Comments Hydrocodone Other 10/30/2015 Meloxicam Headache Medium 04/26/2022 Other Reaction(s): Other: See Comments headache Medications Fioricet 50-300-40 MG capsule Take 1 capsule by mouth every 4 (four) hours if needed for headaches. Active phentermine (Adipex-P) 37.5 MG tablet Take 37.5 mg by mouth in the morning. Take before meals. 08/13/2024 Active estradiol (Climara) 0.05 MG/24HRIndicati ons:Sweating abnormality,Sta tus post hysterectomy,Va ginal dryness Place 1 patch over 7 days on the skin 1 (one) time per week 12 patch 3 09/13/2024 Active estradiol (Climara) 0.075 MG/24HRIndicati ons:Status post hysterectomy,Va ginal dryness Place 1 patch over 7 days on the skin 1 (one) time per week 12 patch 3 12/21/2024 Active Encounters Date Type Department Care Team Description 12/30/2024 Orders Only [facility] [address] [place] [address] Nena Wilson MA 12/21/2024 3:00 PM EDT Office Visit [facility] [address] [place] [address] Noah Walton, Well woman exam with routine gynecological exam; Sweating abnormality; Status post hysterectomy; Vaginal dryness; BV (bacterial vaginosis); Yeast infection of the vagina 12/21/2024 Clinisync Result Encounter [facility] External Department Unsolicited Noah Walton DO 12/21/2024 Bamboo flowsheet [facility] [address] [facility] [place] [address] Noah Walton, 12/19/2024 Travel from Last 3 Months Family History Medical History Relation Name Comments Cancer Maternal Grandmother Hypertension Maternal Grandmother Heart disease Mother Hypertension Mother Mental illness Mother Relation Name Status Comments Maternal Grandmother Mother Social History Tobacco Use Types Packs/Day Years [...] on file Sexual Orientation Not on file Last Filed Vital Signs Vital Sign Reading Time Taken Comments Blood Pressure 118/70 12/21/2024 3:05 PM EDT Pulse - - Temperature - - Respiratory Rate - - Oxygen Saturation - - Inhaled Oxygen Concentration - - Weight 135 kg (297 lb 1.9 oz) 12/21/2024 3:05 PM EDT Height 154.9 cm (5' 1 ) 04/17/2023 10:26 AM EDT Body Mass Index 56.14 04/17/2023 10:26 AM EDT Plan of Treatment Upcoming Encounters Date Type Department Care Team (Late st Contact Info) Description 12/28/2025 4:00 PM EDT Office Visit [facility] [address] [place] [id number] Noah Walton DO [address] [place] [address] [place] [address] Health Maintenance Due Date Last Done Comments Influenza Vaccine (#1) 2025 2, 06/27/2009, 10/18/2008, Additional history exists Cervical Cancer Screening 12/21/2029 HPV/Cotest 12/21/2029 Pap Smear 12/21/2029 12/21/2024, 12/17/2022 Procedures Procedure Name Priority Date/Time Associated Diagnosis Comments IGP,APTIMA HPV,AGE GDLN Routine 12/21/2024 2:55 PM EDT PAP SMEAR Routine 12/21/2024 12:00 AM EDT from Last 3 Months Results * IGP,APTIMA HPV,AGE GDLN (12/21/2024 2:55 PM EDT) AGE GDLN ACOG TESTING Note . [facility] Comment: TESTS RESULT FLAG UNITS REF RANGE LAB Clinician Provided Cytology Information Source.............Vagina No. of containers..01 ThinPrep Vial Age Algo ACOG Ofe... 30-65 01 FLAG LEGEND: L-Low Normal,H-High Normal,LL-Alert Low,HH-Alert High <-Panic Low,>-Panic High,A-Abnormal,AA-Critical Abnormal Performed at: 01 =[facility] [address] [address] Martha Chen MD, IGP, APTIMA HPV, RFX 16/18,45 Note . [facility] Comment: TESTS RESULT FLAG UNITS REF RANGE LAB DIAGNOSIS: 02 NEGATIVE FOR INTRAEPITHELIAL LESION OR MALIGNANCY. Specimen adequacy: 02 Satisfactory for evaluation. Performed by: 02 Jessica Bo, Plastic Outfitter ([facility]) . 02 Note: Note 02 The Pap smear is a screening test designed to aid in the detection of premalignant and malignant conditions of the uterine cervix. It is not a diagnostic procedure and should not be used as the sole means of detecting cervical cancer. Both false-positive and false-negative reports do occur. Test Methodology: Note 02 This liquid based ThinPrep(R) pap test was screened with the use of an image guided system. HPV Genotype Reflex Note 02 Criteria not met, HPV Genotype not performed. FLAG LEGEND: L-Low Normal,H-High Normal,LL-Alert Low,HH-Alert High <-Panic Low,>-Panic High,A-Abnormal,AA-Critical Abnormal Performed at: [address] [place] [address] Martha Chen MD, HPV APTIMA Negative Negative [facility] Comment: This nucleic acid amplification test detects fourteen high- risk HPV types (16,18,31,33,35,39,45,51,52,56,58,59,66,68) without differentiation. Performed at: =[facility], [place] [id number] Property Handler: Martha Chen MD, Phone: [phone] Performed at: [facility] - [address], [place], [place] [id number] Property Handler: Martha Chen MD, Phone: [phone] 12/21/2024 2:55 PM EDT 12/21/2024 8:10 PM EDT Narrative [facility] - 12/26/2024 8:10 AM EDT SPATULA-ALONE VAGINA us Noah Isabelle DO LAB BLOOD ORDERABLES Final Resul t [facility] * Pap Smear (12/21/2024 12:00 AM EDT) Swab Cervical swab / Unknown us Noah Isabelle DO LAB CYTOLOGY ORDERABLES Final Re sult EXTERNAL LAB from Last 3 Months Insurance [employer] Care Teams Show Worker Relationship Specialty Start Date End Date Rojelio Donato MD PCP - General Family Medicine 01/27/23
--- OUTSIDE RECORDS SUMMARY | 2025-03-16 15:53 | XMS_ITS | Encounter Summary ---
Author Organization [facility] Address [address] [place] [address] Care Team Providers Care Softball Player Name Role Phone Noah Walton DO Unavailable [phone] Source Comments In the event this information is protected by the Federal Confidentiality of Alcohol and Drug AbusePatient Records regulations: The Federal rules restrict any use of the information to criminally investigate or prosecute any alcohol or drug abuse patient.[facility] Encounter Details Date Type Department Care Team (Late st Contact Info) Description 05/17/2022 Patient Msg General Surgery [address] [place], [place] [id number] Provider, [facility] Nutrition Summary Social History Tobacco Use Types Packs/Day Years Used Date Smoking Tobacco: Never Smokeless Tobacco: Never Area Deprivation Index Answer Date Francois rded National Score (1-100), lower number is lower ri sk 88 04/26/2022 State Score (1-10), lower number is lower risk N ot on file 04/26/2022 Data from: https://www.neighborhoodatlas.medicine.[facility].edu/. Last address used for calculation [address] 04/26/2022 Comments No Sex and Gender Information [...] on filedocumented in this encounter Care Teams Softball Player Relationship Specialty Start Date End Date Noah Walton DO [address] [place] [address] Referring Frame Expander 04/23/22 documented as of this encounter
--- OUTSIDE RECORDS SUMMARY | 2025-03-16 15:53 | XMS_ITS | Clinical Summary ---
Author Organization [facility] Address [address] [place] [id number] Care Team Providers Care Academic Coach Name Role Phone Noah Walton DO Unavailable [phone] Allergies Active Allergy Reactions Criticality Noted Date Comments Meloxicam Other: See Comments 04/26/2022 headache Medications FLUoxetine (PROZAC) 10 mg capsule Take 10 mg by mouth once daily. Active Phentermine HCl 37.5 mg capsule Take 37.5 mg by mouth once daily. 04/18/2022 Active naratriptan (AMERGE) 2.5 mg tablet Take 2.5 mg by mouth once daily. 04/21/2022 Active acetaminophen 325 mg-caffeine 40 mg-butalbital 50 mg (FIORICET) per capsule as needed. 03/19/2022 Active acetaminophen-co deine (TYLENOL-COD #3) 300-30 mg per tablet Take 1 tablet by mouth every 6 hours as needed. 04/22/2022 Active tiZANidine (ZANAFLEX) 4 mg tablet Take 8 mg by mouth as needed. 03/01/2022 Active Social History Tobacco Use Types Packs/Day Years Used Date Smoking Tobacco: Never Smokeless Tobacco: Never Tobacco Cessation:Counseling Given: Not Answered Area Deprivation Index Answer Date Francois rded National Score (1-100), lower number is lower ri sk 88 09/21/2022 State Score (1-10), lower number is lower risk N ot on file 09/21/2022 Data from: https://www.neighborhoodatlas.medicine.[facility].edu/. Last address used for calculation [address] 09/21/2022 Comments No Sex and Gender Information Value Date Recorded Sex Assigned at Not on file Legal Sex Female 9:34 AM EDT Gender Identity Not on file Sexual Orientation Not on file Last Filed Vital Signs Vital Sign Reading Time Taken Comments Blood Pressure 140/84 04/26/2022 1:36 PM EDT Pulse 104 04/26/2022 1:36 PM EDT Temperature - - Respiratory Rate - - Oxygen Saturation 98% 04/26/2022 1:36 PM EDT Inhaled Oxygen Concentration - - Weight 133.8 kg (295 lb) 05/16/2022 2:03 PM EDT Height 152.4 cm (5') 05/16/2022 12:56 PM EDT Body Mass Index 57.61 05/16/2022 12:56 PM EDT Plan of Treatment Health Maintenance Due Date Last Done Comments Anxiety Screening 2011 Depression Screening 2011 HIV Screening 2011 Hepatitis C Screening 2011 Cervical Cancer Screening 2014 DTaP,Tdap,Td Vaccine (7 - Td or Tdap) 04/24/2017 04/24/2007, 06/16/1998, 05/02/1995, Additional history exists Covid-19 Vaccine (2023-2 5 season) 2024 12/03/2021, 10/25/2021 Influenza Vaccine (Season Ended) 2025 06/27/2009, 10/18/2008, 07/13/2004 Hepatitis B Vaccine Completed 05/02/1995, 11/18/1994, 03/18/1994 Insurance [facility] MEDICAID Care Teams Academic Coach Relationship Specialty Start Date End Date Noah Walton DO [address] [place] [address] Referring Heel Sprayer 04/23/22
--- OUTSIDE RECORDS SUMMARY | 2025-03-16 15:53 | XMS_ITS | Encounter Summary ---
Author Organization [facility] Address [address] [place] [address] Care Team Providers Care Exploration Engineer Name Role Phone Rojelio Donato MD Primary Care Provider [phone] Encounter Details Date Type Department Care Team (Late Contact Info) Description 03/20/2023 Abstract [facility] [address] [place] [address] Noah Walton, [facility] [address] [place], [id number] Social History Tobacco Use Types Packs/Day Years [...] suspected to have Coronavirus/COVID-19? No / Unsure 03/18/2023 3:08 PM EDT documented as of this encounter Plan of Treatment Upcoming Encounters Date Type Department Care Team (Late Contact Info) Description 12/28/2025 4:00 PM EDT Office Visit [facility] [address] [place] [address] Noah Walton, DO [address], [id number] documented as of this encounter Visit Diagnoses Not on filedocumented in this encounter Care Teams Exploration Engineer Relationship Specialty Start Date End Date Rojelio Donato MD PCP - General Family Medicine 01/27/23 documented as of this encounter
--- OUTSIDE RECORDS SUMMARY | 2025-03-16 15:54 | XMS_ITS | Encounter Summary ---
Author Organization [facility] Address [address] [place] [address] Care Team Providers Care Medical Clerical Assistant Name Role Phone Rojelio Donato MD Primary Care Provider [phone] Encounter Details Date Type Department Care Team (Late Contact Info) Description 03/20/2023 Abstract [facility] [address] [place] [address] Noah Walton, [facility] [address] [place], [id number] Social History Tobacco Use Types Packs/Day Years [...] 12/28/2025 4:00 PM EDT Office Visit [facility] [address] [place] [address] Noah Walton, DO [address], [id number] documented as of this encounter Visit Diagnoses Not on filedocumented in this encounter Care Teams Medical Clerical Assistant Relationship Specialty Start Date End Date Rojelio Donato MD PCP - General Family Medicine 01/27/23 documented as of this encounter
--- OUTSIDE RECORDS SUMMARY | 2025-03-16 15:54 | XMS_ITS | Patient Health Record ---
Author Organization The [facility] in [place] Address [address] [place] [address] Care Team Providers Care Organ Installer Name Role Phone Caesar Donato Primary Care Provider Mickey Price [phone] Allergies Allergen (clinical drug ingredient) Drug/Non Drug Allergy documented on EMR Reaction Allergy Type Onset Date Status meloxicam Meloxicam headache Drug Allergy Active Results Component Value Reference Range Notes COVID-19, Flu A+B IH Reviewed date:12/26/2024 07:31:03 PM Interpretation: Performing Lab: Notes/Report: COVID - FLU A + FLU B - Control + UA DIP NONAUTO WO MICRO (810 02) - IN OFFICE Reviewed date:01/12/2025 03:48:29 PM Interpretation: Performing Lab: Notes/Report: COLOR Yellow CLARITY Dark GLUCOSE Neg BILIRUBIN Neg KETONE Neg SPECIFIC GRAVITY 1.030 BLOOD Neg PH 5 PROTEIN Neg UROBILINOGEN Neg NITRITE Neg LEUKOCYTE ESTERASE ++ UA DIP NONAUTO WO MICRO (810 02) - IN OFFICE (Not yet reviewed by provider) Interpretation: Performing Lab: Notes/Report: COLOR yellow CLARITY cloudy GLUCOSE n BILIRUBIN n KETONE n SPECIFIC GRAVITY 1.020 BLOOD 250++ PH 5 PROTEIN trace UROBILINOGEN n NITRITE n LEUKOCYTE ESTERASE ++ INFLUENZA A AND B AG Reviewed date:10/06/2024 08:50:29 PM Interpretation: Performing Lab: Notes/Report: [facility] , Influenza Virus A Antigen Negative below the detection limit of the test. Negative for Flu A protein antigen. Infection due to Flu A cannot be ruled out. Flu A antigen in the sample may be Influenza Virus B Antigen Negative below the detection limit of the test. Negative for Flu B protein antigen. Infection due to Flu B cannot be ruled out. Flu B antigen in the sample may be Performing Lab: see note ML - [facility] LB SARS-CoV-2 Ag* Reviewed date:10/06/2024 08:50:29 PM Interpretation: Performing Lab: Notes/Report: [facility] , SARS-CoV-2 Ag NEGATIVE NEGATIVE authorized by the FDA under an Emergency Use Authorization complexity testing. This test has been authorized only for CLIA that meet the requirements to perform moderate or high viruses or pathogens. The emergency use of this test is authorized for the duration of the declaration that the detection of proteins from SARS-CoV-2, not for any other circumstances exist justifying the authorization of and/or diagnosis of Covid-19 under section 564(b)(1) of the (EUA) for use by authorized laboratories certified under This test has not been FDA cleared or approved, but has been emergency use of in vitro diagnostic tests for detection terminated or authorization is revoked sooner. Act, 21 U.S.C. 360bbb-3(b)(1), unless the declaration is Performing Lab: see note ML - [facility] LB HCG Qualitative* Reviewed date:10/06/2024 08:50:29 PM Interpretation: Performing Lab: Notes/Report: [facility] , HCG Qualitative NEGATIVE NEGATIVE Performing Lab: see note ML - [facility] LB CT head/brain wo con Reviewed date:10/06/2024 08:50:29 PM Interpretation: Performing Lab: Notes/Report: Source Facility: [facility]-[address] [place] [address] [place] [address] CT Scan Report Signed Patient: CONNIE SALCIDO MR#: [id number] : 1995 Acct:[id number] Age/Sex: 28 / F ADM Date: 10/06/24 Loc: ER Attending Dr: Ordering Physician: Jaki Whitman Date of Service: 10/06/24 Procedure(s): CT head/brain wo con Accession Number(s): [id number] cc: Rojelio Donato M.D. The [place] [address] Patient Name: CONNIE SALCIDO MRN: [facility]:[id number] date: 1995 Sex: F Assigned Patient Location: ER Current Patient Location: ER Accession/Order Number: [id number] Exam Date: 10/06/2024 17:42 Report Date: 10/06/2024 18:45 At the request of: JAKI WHITMAN Procedure: CT head/brain wo con EXAMINATION: CT head/brain wo con HISTORY: Headache COMPARISON: None. TECHNIQUE: CT head without intravenous contrast. Dose reduction techniques were achieved by using: automated exposure control and/or adjustment of mA and /or kV according to patient size and/or use of iterative reconstruction technique. FINDINGS: Degradation of image quality secondary to beam hardening artifact from earrings. Patient was unable to remove earrings. The ventricles and sulci are within normal limits in size and configuration for age. There is no evidence for acute intracranial hemorrhage. There are no foci of abnormal parenchymal attenuation. There is no mass effect or midline shift. There are no abnormal extraaxial fluid collections. CT/CT head/brain wo con IMPRESSION: Degradation of image quality secondary to beam hardening artifact from earrings. Patient was unable to remove earrings. The inferior aspect of the brain is especially obscured. Within constraints of exam, there is no convincing acute intracranial hemorrhage or acute intracranial process. If symptoms continue, MRI of the brain could be obtained. Electronically authenticated by: AKIN WIGGINS Date: 10/06/2024 18:45 Dictated By: Akin Wiggins M.D. Signed By: 10/06/241847 DD/ 44 TD/TT: Implementation Manager: [place] [address] CT Scan Report Signed Patient: NILTON SALCIDO MR#: [id number] : 1995 Acct:[id number] Age/Sex: 28 / F ADM Date: 10/06/24 Loc: ER Attending Dr: Ordering Physician: Jaki Whitman Date of Service: 10/06/24 Procedure(s): CT head/brain wo con Accession Number(s): [id number] cc: Rojelio Donato M.D. [facility] [place] [id number] Patient Name: CONNIE SALCIDO MRN: [facility]:[id number] date: 1995 Sex: F Assigned Patient Location: ER Current Patient Location: ER Accession/Order Number: [id number] Exam Date: 10/06/2024 17:42 Report Date: 10/06/2024 18:45 At the request of: JAKI WHITMAN Procedure: CT head/brain wo con EXAMINATION: CT head/brain wo con HISTORY: Headache COMPARISON: None. TECHNIQUE: CT head without intravenous contrast. Dose reduction techniques were achieved by using: automated exposure control and/or adjustment of mA and /or kV according to patient size and/or use of iterative reconstruction technique. FINDINGS: Degradatio n of image quality secondary to beam hardening artifact from earrings. Patie nt was unable to remove earrings. The ventricles and sulci are within normal limits in size and configuration for age. There is no evidence for acute intracranial hemorrhage. There are no foci of abnormal parenchymal attenuation. There is no mass effect or midline shift. There are no abnormal extraaxial fluid collections. CT/CT head/brain wo con IMPRESSION: Degradation of image quality secondary to beam hardening artifact from earrings. Patient wa s unable to remove earrings. The inferior aspect of the brain is especially obscured. Within constraints of exam, there is no convincing acute intracranial hemorrhage or acute intracranial process. If symptoms continue, M RI of the brain could be obtained. Electronically authenticated by: AKIN WIGGINS Date: 10/06/2024 18:45 Dictated By: Ashlie Wiggins M.D. Signed By: 10/06/241847 DD/ 44 TD/TT: Implementation Manager: PROF PRAVEEN Lee ([facility]) Reviewed date:10/06/2024 08:50:29 PM Interpretation: Performing Lab: Notes/Report: [facility] , Sodium 138 136-145 mmol/L Potassium 3.3 3.5-5.1 mmol/L Chloride 107 98-107 mmol/L Carbon Dioxide 24.3 21.0-32.0 mmol/L Anion Gap 10.0 Glucose 89 74-106 mg/dL Blood Urea Nitrogen 18.0 7.0-18.0 mg/dL Creatinine 0.72 0.55-1.02 mg/dL Estimated GFR ( Kajal >60 >=60 mL/min/1.73m 2 Estimated GFR (Non- Zehra >60 >=60 mL/min/1.73m 2 BUN Creatinine Ratio 25.0 Calcium 8.0 8.5-10.1 mg/dL Performing Lab: see note ML - [facility] LB CBC AUTO DIFF Reviewed date:10/06/2024 08:50:29 PM Interpretation: Performing Lab: Notes/Report: [facility] , White Blood Count 9.8 4.0-11.0 10 3/uL Red Blood Count 4.39 4.20-5.40 10 6/uL Hemoglobin 13.4 12.0-16.0 g/dL Hematocrit 40.5 36.0-48.0 % Mean Corpuscular Volume 92.3 81.0-99.0 fL Mean Corpuscular Hemoglobin 30.5 26.7-34.0 pg Mean Corpuscular HGB Conc 33.1 29.9-35.2 g/dL Red Cell Distribution Width 12.4 11.0-15.0 % Platelet Count 222 150-450 10 3/uL Mean Platelet Volume 9.9 9.5-13.5 fL Neutrophils Percent Auto 69.2 43.0-75.0 % Lymphocytes Percent Auto 23.8 20.5-60.0 % Monocytes Percent Auto 6.5 1.7-12.0 % Eosinophils Percent Auto 0.1 0.9-7.0 % Basophils Percent Auto 0.2 0.2-2.0 % Immature Granulocytes Pct Auto 0.2 0.0-0.5 % Neutrophils Absolute Auto 6.8 1.4-6.5 10 3/uL Lymphocytes Absolute Auto 2.3 1.2-3.8 10 3/uL Monocytes Absolute Auto 0.6 0.3-0.8 10 3/uL Eosinophils Absolute Auto 0.0 0.0-0.7 10 3/uL Basophils Absolute Auto 0.0 0.0-0.1 10 3/uL Immature Granulocytes Abs Auto 0.02 0.00-0.03 10 3/uL Performing Lab: see note ML - [facility] LB IGP,Aptima HPV,Age Gdln Reviewed date:12/26/2024 07:31:03 PM Interpretation: Performing Lab: Notes/Report: [facility] , Age Gdln ACOG Testing Note . Martha Chen MD, Clinician Provided Cytology Information L-Low Normal,H-High Normal,LL-Alert Low,HH-Alert High FLAG LEGEND: [address] [place] [address] TESTS RESULT FLAG UNITS REF RANGE LAB Age Algo ACOG Ofe... 30-65 01 01 =G [facility] Performed at: <-Panic Low,>-Panic High,A-Abnormal,AA-Criti charito Abnormal No. of containers..01 ThinPrep Vial Source.............Vagin a IGP, Aptima HPV, rfx 16/18,45 Note . HPV Genotype Reflex Note 02 Jessica Bo, Basketball Assembler (ASCP) <-Panic Low,>-Panic High,A-Abnormal,AA-Criti charito Abnormal uterine cervix. It is not a diagnostic procedure and should not be used as the sole means of detecting cervical Test Methodology: Note 02 Satisfactory for evaluation. This liquid based ThinPrep(R) pap test was screened with Specimen adequacy: 02 The Pap smear is a screening test designed to aid in the FLAG LEGEND: L-Low Normal,H-High Normal,LL-Alert Low,HH-Alert High detection of premalignant and malignant conditions of the [address] [place] [address] DIAGNOSIS: 02 Martha Chen MD, Note: Note 02 . 02 occur. NEGATIVE FOR INTRAEPITHELIAL LESION OR MALIGNANCY. Criteria not met, HPV Genotype not performed. 02 [facility] cancer. Both false-positive and false-negative reports do Performed at: TESTS RESULT FLAG UNITS REF RANGE LAB the use of an image guided system. Performed by: 02 HPV Aptima Negative Negative risk HPV types (16,18,31,33,35,39,45,51 ,52,56,58,59,66,68) Performed at: [facility] This nucleic acid amplification test detects fourteen high- [address] [place], [place] [id number] Court Clerk: Martha Chen MD, Phone: [phone] [address] [place] [phone] [address] differentiation[address] Court Clerk: Martha Chen MD, Phone: [phone] Performed at: =[facility] Performing Lab: see note - [facility] LB Reason For Referral No Information Medications Medication SIG (Take, Route, Frequency, Duration) Notes Start Date End Date Status Pristiq 50 MG 1 tablet Orally Once a day for 30 days 09/20/2024 Active Cephalexin 500 MG 2 tabs Orally bid fo r 10 days 01/12/2025 Active Pyridium 200 MG 1 tablet after meals Orally Three times a day for 2 days 01/12/2025 Active hydrOXYzine HCl 25 MG 1 tablet as needed Orally qid for 10 days 03/10/2025 Active Ondansetron 4 MG 1 tablet on the tong ue and allow to dissolve Orally Once a day for 30 days PRN 05/31/2024 Active Ehbjewtgts-AHNC-Ihvyazes 50-300-40 MG TAKE 1 CAPSULE BY MOUTH EVERY 4 HOURS NEEDED for 30 PRN 02/22/2025 Active Cyclobenzaprine HCl 10 MG 1 tablet Orall y tid for 30 days PRN 10/27/2024 Active Social History Tobacco Use: Social History Observation Description Date Details (start date - stop date) Never Smoker NA - NA Tobacco Use/Smoking Question Answer Notes Patient is a nonsmoker Alcohol Screen (Audit-C) Question Answer Notes Did you have a drink containing alcohol in the p ast year? No Points 0 Interpretation Negative AUDIT-C (Standard) Question Answer Notes Did you have a drink containing alcohol in the p ast year? 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) Active confirmed Problem 128269953 Contracture, lef t ankle (M24.572) Active confirmed Problem 12724948 Plantar fascial fibromatosis (M72.2) Active confirmed Problem 596749968268677 Achilles tendinitis, right leg (M76.61) Active confirmed Problem 166433011888090 Achilles tendinitis, left leg (M76.62) Active confirmed Problem Obesity (098193129) Obesity (E66.9) Active confirmed Problem Anxiety (53316134) Anxiety (F41.9) Active confi rmed Problem Depression (147049429) Depression (F32.9) Active confirmed Problem Migraine (17098702) Migraine (G43.909) Active confirmed Problem Acute sinusitis (18533991) Acute sinusitis (J01.90) Active confirmed Problem Right lower quadrant pain (249435758) Right lower quadrant abdominal pain (R10.31) Active confirmed Problem Sciatica (79586855) Sciatica (M54.30) Active confirmed Problem Pain in left foot (709912845361922) Left foot pain (M79.672) Active confirmed Problem Acute gastroenteritis (70867531) Acute gastroenteritis (K52.9) Active confirmed Problem Arthralgia of the pelvic region and thigh (110836415) Hip pain, acute, right (M25.551) Active confirmed Vital Signs Temperature 98.3 degrees Fahrenheit 10/18/2024 Blood pressure diastolic 84 mm Hg 03/10/2025 Height 61 in 03/10/2025 Blood pressure systolic 126 mm Hg 03/10/2025 Weight 300.0 lbs 03/10/2025 BMI 56.68 kg/m2 03/10/2025 Encounters Encounter Location Date Provider Diagnosis [address] [address] 04/09/2024 Caesar Hoy Migraine G43.909 ; A nxiety F41.9 and Depression F32.[address] [address] 05/31/2024 Caesar Hoy Migraine G43.[address] [address] 09/20/2024 Caesar Hoy Hip pain, acute, rig ht M25.551 and Depression F32.[address] [address] 10/18/2024 Caesar Hoy Cough R05.9 and Infl uenza J11.[address] [address] 12/01/2024 Caesar Hoy Migraine G43.909 and Obesity E66.[address] [address] 06/15/2024 Caesar Hoy Acute non-recurrent sinusitis, unspecified location J01.90 and Nasal congestion R09.[address] [address] 08/04/2024 Caesar Hoy Obesity E66.9 and Sc iatica M54.[address] [address] 09/10/2024 Caesar Hoy Hip pain, acute, rig ht M25.551 [facility] [address] [place] [address] 01/12/2025 Caesar Hoy Dysuria R30.0 [facility] [address] [place] [address] 03/10/2025 Caesar Hoy Urinary urgency R39. 15 ; Depression F32.9 and Anxiety F41.9 [facility] [address] [place] [address] 12/02/2024 Caesar Hoy Migraine G43.909 [facility] [address] [place] [address] 06/03/2024 Caesar Hoy Migraine G43.909 [facility] [address] [place] [address] 04/02/2024 Caesar Hoy Obesity E66.9 [facility] [address] [place] [address] 04/09/2024 Caesar Hoy Migraine G43.909 and Acute gastroenteritis K52.9 [facility] [address] [place] [address] 05/07/2024 Caesar Hoy Obesity E66.9 [facility] [address] [place] [place] [address] 06/02/2024 Caesar Hoy Obesity E66.9 [facility] [address] [place] [address] 07/12/2024 Caesar Hoy Obesity E66.9 [facility] [address] [place] [address] 10/27/2024 Caesar Hoy [facility] [address] [place] [address] 11/09/2024 Caesar Hoy Obesity E66.9 [facility] [address] [place] [address] 12/01/2024 Caesar Hoy Migraine G43.909 [facility] [address] [place] [address] 12/02/2024 Caesar Hoy [facility] [address] [place] [place] [address] 12/29/2024 Caesar Hoy Obesity E66.9 [facility] [address] [place] [place] [address] 02/22/2025 Caesar Hoy Obesity E66.9 Assessments Encounter Date Diagnosis (ICD Code) Assessment Notes Treatment Notes Treatment Clinical Notes Section Notes 04/02/2024 Obesity (ICD-10 - E66.9) 04/09/2024 Migraine (ICD-10 - G43.909) 05/07/2024 Obesity (ICD-10 - E66.9) 06/02/2024 Obesity (ICD-10 - E66.9) 07/12/2024 Obesity (ICD-10 - E66.9) 11/09/2024 Obesity (ICD-10 - E66.9) 12/01/2024 Migraine (ICD-10 - G43.909) 12/29/2024 Obesity (ICD-10 - E66.9) 02/22/2025 Obesity (ICD-10 - E66.9) 04/09/2024 Migraine (ICD-10 - G43.909) improving stress will help 04/09/2024 Anxiety (ICD-10 - F41.9) trial pristiq, both celexa and doxepin made tired - needs SNRI component 05/31/2024 Migraine (ICD-10 - G43.909) 06/03/2024 Migraine (ICD-10 - G43.909) 06/15/2024 Acute non-recurrent sinusitis, unspecified location (ICD-10 - J01.90) Rest and drink more liquids, especially water. You may use a humidifier or vaporizer to help keep the drainage moist. Xrlm-qbc-fyskovk Nasal Saline may help the stuffy and runny nose. Use Ibuprofen and or Tylenol as needed for fever, chills, body aches or pain. Children 5 years old should not be given ksdk-awk-jgljbnl cough and cold medications such as guaifenesin and dextromethorphan. If you're over age 5, you may try cwle-qhz-saxfmtt cold medications such as guaifenesin and dextromethorphan, or multi-symptom cold reliever such as Dayquil to help reduce the symptoms. Antibiotics have been prescribed. You should take these until completed and follow the directions. Antibiotics can sometimes cause upset stomach, and in rare cases, serious allergic reactions or serious gastrointestinal problems. If you start having severe abdominal pain, severe vomiting, or bloody diarrhea, you should be reevaluated by your physician or urgent care immediately. Follow up with your Primary Care Provider or return to clinic if symptoms do not improve within 3-5 days 08/04/2024 Obesity (ICD-10 - E66.9) 08/04/2024 Sciatica (ICD-10 - M54.30) 09/10/2024 Hip pain, acute, right (ICD-10 - M25.551) 09/20/2024 Hip pain, acute, right (ICD-10 - M25.551) 09/20/2024 Depression (ICD-10 - F32.9) 10/18/2024 Cough (ICD-10 - R05.9) 12/01/2024 Migraine (ICD-10 - G43.909) 12/01/2024 Obesity (ICD-10 - E66.9) 12/02/2024 Migraine (ICD-10 - G43.909) 01/12/2025 Dysuria (ICD-10 - R30.0) 03/10/2025 Urinary urgency (ICD-10 - R39.15) 03/10/2025 Depression (ICD-10 - F32.9) 03/10/2025 Anxiety (ICD-10 - F41.9) 10/18/2024 Influenza (ICD-10 - J11.1) 06/15/2024 Nasal congestion (ICD-10 - R09.81) 04/09/2024 Depression (ICD-10 - F32.9) see anxiety 04/09/2024 Acute gastroenteritis (ICD-10 - K52.9) 05/31/2024 Other Take NSAIDs as needed for pain. Discussed avoiding headache triggers and improiving diet and sleep habits to prevent headaches. 10/18/2024 Other Rest and drink more liquids, especially water. You may use a humidifier or vaporizer to help keep the drainage moist. Bepx-ysj-srbgxzy Nasal Saline may help the stuffy and runny nose. Use Ibuprofen and or Tylenol as needed for fever, chills, body aches or pain. Children 5 years old should not be given mxrd-ihp-oiivati cough and cold medications such as guaifenesin and dextromethorphan. If you're over age 5, you may try pudr-smn-timnuml cold medications such as guaifenesin and dextromethorphan, or multi-symptom cold reliever such as Dayquil to help reduce the symptoms. Follow up with your Primary Care Provider or return to clinic if symptoms do not improve within 3-5 days. If you develop severe symptoms such as shortness of breath, repeated vomiting, coughing up blood, or chest pain you should go to the emergency room or call 911. Plan Of Treatment Pending Test Test Name Order Date CULTURE, STOOL 12/17/2023 CT Abdomen and Pelvis w/contrast * 08/14 MRI Brain w/o contrast 05/15/2023 UA DIP NONAUTO WO MICRO (95456) - IN OFF ICE 03/10/2025 C DIFF PCR - C Difficile Toxin Gene MARTIN - LC 12/17/2023 US APPENDIX 08/18/2023 US PELVIS 08/18/2023 XR ABD FLAT UP_PA CH 12/17/2023 XR HIP RT 2 3V W PELVIS 09/20/2024 XR acute abdomen series 08/18/2023 Next Appt Details Provider Name:Caesar Hernandez Kinga, 04:15:00 PM, [address] [facility], [place], [address], Insurance Providers Payer Name Payer Address Payer Phone Subscriber Number Group Number Insured Name Patient Relationship to Insured Coverage Start Date Coverage End Date [employer] [place] [employer] [address] [place] [address] [id number] Connie Salcido Self - patient is the insured 3 Medications Administered Medication Instructions Date of Administration Dosage Notes Kenalog-40 05/31/2024 80 mg 80 Kenalog-40 06/03/2024 80 mg Ketorolac Tromethamine 05/15/2023 60 mg 60 Ketorolac Tromethamine 05/31/2024 60 mg 60 Ketorolac Tromethamine 05/31/2024 60 mg Ketorolac Tromethamine 06/03/2024 60 mg Ketorolac Tromethamine 12/01/2024 60 mg Ketorolac Tromethamine 12/02/2024 60 mg Orphenadrine Citrate 05/15/2023 60 mg 60 Promethazine 25mg 06/03/2024 25 mg Promethazine 25mg 12/01/2024 25 mg Promethazine, 25 mg 05/15/2023 25 mg 25 Promethazine, 25 mg 05/31/2024 25 mg 25 Promethazine, 25 mg 12/02/2024 50 mg Medical (General) History Medical History History ICD Code Breast tenderness N64.4 Cervical disc disorder at C5-C6 level wi th radiculopathy M50.122 Brain concussion, with loss of consciousness of 30 minutes or less, initial encounter S06.0X1A Breakthrough bleeding N92.1 Gastritis K29.70 Hordeolum internum H00.029 Irritable bowel K58.9 Calcium kidney stone N20.0 Major depressive disorder, recurrent epi sode, moderate F33.1 Migraine G43.909 Muscle spasm M62.838 Nocturia R35.1 Obstructive apnea G47.33 Osteochondral defect M95.8 Otalgia H92.09 Impingement syndrome of shoulder M75.40 Sprain of anterior talofibular ligament of left ankle, initial encounter S93.492A Surgical History Surgery Date(Month/Year) Right Ankle arthroscopy for aided repair of osteochondral defect of talus, arthrotomy for cartilage grafting, peroneal tendon repair, lateral ankle stabilization, transplantation of bone marrow aspirate 04/09/2019 Gallbladder x2 Laparoscopic hysterectomy with cystoscop y, bilateral salpingectomy 04/10/2023 Hospitalization History Reason Date(Month/Year) see above
--- OUTSIDE RECORDS SUMMARY | 2025-03-16 15:54 | XMS_ITS | Encounter Summary ---
Author Organization [facility] Address [address] [place] [address] Care Team Providers Care Chief Controller Name Role Phone Rojelio Donato MD Primary Care Provider [phone] Encounter Details Date Type Department Care Team (Late Contact Info) Description 10/14/2023 Clinisync Result Encounter [facility] External Department Unsolicited Carlito Walton, DO [address] [place] [address] Social History Tobacco Use Types Packs/Day Years [...] Visit [facility] [address] [place] [id number] Carlito Walton DO [address] [place] [address] documented as of this encounter Procedures Procedure Name Priority Date/Time Associated Diagnosis Comments US PELVIS W/ TRANSVAGINAL 10/14/2023 12:52 PM EST documented in this encounter Results * US PELVIS W/ TRANSVAGINAL (10/14/2023 12:52 PM EST) Anatomical Region Laterality Modality Other 10/14/2023 12:5 2 PM EST Narrative 10/14/2023 12:55 PM EST [address] [address] Ultrasound Report Signed Patient: ABDIRAHMAN SALCIDO MR#: [id number] : 1995 Acct:[id number] Age/Sex: 27 / F ADM Date: 10/14/23 Loc: [facility] Attending Dr: Carlito Walton D.O. Ordering Physician: Carlito Walton D.O. Date of Service: 10/14/23 Procedure(s): US pelvis w/ transvaginal Accession Number(s): [id number] cc: Carlito Walton D.O.; Rojelio Donato M.D. [address] [address] Patient Name: ABDIRAHMAN SALCIDO MRN: [id number] date: 1995 Sex: F Assigned Patient Location: [facility] Current Patient Location: [facility] Accession/Order Number: [id number] Exam Date: 10/14/2023 10:55 Report Date: 10/14/2023 12:52 At the request of: CARLITO WALTON Procedure: US pelvis w/ transvaginal EXAM: Pelvic ultrasound HISTORY: . PELVIC PAIN . COMPARISON: 03/14/2023 TECHNIQUE: Transabdominal and transvaginal scanning was performed FINDINGS: Scanning of the pelvis demonstrates absence of the uterus. Right ovary was not visualized. Left ovary measures 2 x 2.9 x 2.6 cm. Color-flow is noted. Follicles are noted. No masses are noted. No fluid is noted in the cul-de-sac. US/US pelvis w/ transvaginal IMPRESSION: 1. Absent uterus. 2. Normal-appearing left ovary with color flow. 3. Right ovary was not identified. Electronically authenticated by: AYAD COUGHLIN Date: 10/14/2023 12:52 Dictated By: Ayad Coughlin M.D. Signed By: 10/14/23 4214 DD/ 125 TD/TT: Flame Hardener: Procedure Note Radiology, Radiologist, - 10/14/2023 [place] [address] Ultrasound Report Signed Patient: ABDIRAHMAN SALCIDO MMR#: [id number] : 1995Acct:[id number] Age/Sex: 27 / FADM Date: 10/14/23 Loc: [facility] Attending Dr: Carlito Walton D.O. Ordering Physician: Carlito Walton D.O. Date of Service: 10/14/23 Procedure(s): US pelvis w/ transvaginal Accession Number(s): [id number] cc: Carlito Walton D.O.; Rojelio Donato M.D. [facility] [place] [id number] Patient Name: ABDIRAHMAN SALCIDO MRN: [id number] date: 1995 Sex: F Assigned Patient Location: [facility] Current Patient Location: [facility] Accession/Order Number: [id number] Exam Date: 10/14/2023 10:55 Report Date: 10/14/2023 12:52 At the request of: CARLITO WALTON Procedure: US pelvis w/ transvaginal EXAM: Pelvic ultrasound HISTORY: . PELVIC PAIN . COMPARISON: 03/14/2023 TECHNIQUE: Transabdominal and transvaginal scanning was performed FINDINGS: Scanning of the pelvis demonstrates absence of the uterus. Right ovary was not visualized. Left ovary measures 2 x 2.9 x 2.6 cm. Color-flow is noted. Follicles are noted. No masses are noted. No fluid is noted in the cul-de-sac. US/US pelvis w/ transvaginal IMPRESSION: 1. Absent uterus. 2. Normal-appearing left ovary with color flow. 3. Right ovary was not identified. Electronically authenticated by: AYAD COUGHLIN Date: 10/14/2023 12:52 Dictated By: Ayad Coughlin M.D. Signed By:10/14/23 125 DD/ 1252 TD/TT: Flame Hardener: us Carlito Walton DO [facility] Final Result documented in this encounter Visit Diagnoses Not on filedocumented in this encounter Care Teams Chief Controller Relationship Specialty Start Date End Date Rojelio Donato MD PCP - General Family Medicine 01/27/23 documented as of this encounter
--- NOTE | 2025-03-16 16:40 | ED.GENADUL1 ---
HPI HPI - General Adult General Chief complaint: Abdominal Pain Stated complaint: ABDOMINAL PAIN Time Seen by Provider: 03/16/25 16:36 Source: patient Mode of arrival: walk-in Limitations: no limitations History of Present Illness HPI narrative: 29-year-old female presents to the emergency department for chief complaint of abdominal pain. It is in her right upper quadrant and it has been there since 8:00 this morning. No trauma or fever. She has had some diarrhea but no constipation. She has had a cholecystectomy 8 years ago. The pain is moderate and continuous. Related Data Home Medications ?Medication ?Instructions ?Recorded ?Confirmed uudsvlcsjc-zyttkjqdqjyro-wruefkpo cap 10/06/24 50 mg-300 mg-40 mg capsule desvenlafaxine succinate 50 mg mg PO 03/16/25 tablet,extended release 24 hr estradiol 0.075 mg/24 hr weekly 03/16/25 transdermal patch hydroxyzine HCl 25 mg tablet mg 03/16/25 Previous Rx's ?Medication ?Instructions ?Recorded ondansetron 4 mg disintegrating 4 mg PO Q6H PRN nausea and 10/06/24 tablet vomiting #12 tabs Allergies Allergy/AdvReac Type Severity Reaction Status Date / Time meloxicam Allergy Headache Verified 03/16/25 15:42 acetaminophen (From [facility]) AdvReac Mild Nausea Verified 03/16/25 15:42 hydrocodone (From [facility]) AdvReac Mild Nausea Verified 03/16/25 15:42 hydromorphone (From Dilaudid) AdvReac Mild Nausea Verified 03/16/25 15:42 Opioid HPI Opioid Management Most Recent Opioid Data: Last Pain Scale 7 Today, 15:40 Review of Systems ROS Narrative A ten point review of systems is negative except as noted above. [facility] Medical History (Updated 03/16/25 @ 19:00 by Sean Hernandes MD) Migraine ?G43.909 - Migraine, unspecified, not intractable, without status migrainosus (ICD-10) Sleep apnea ?G47.30 - Sleep apnea, unspecified (ICD-10) Bronchitis ?J40 - Bronchitis, not specified as acute or chronic (ICD-10) Kidney stones ?N20.0 - Calculus of kidney (ICD-10) Postoperative nausea and vomiting ?R11.2 - Nausea with vomiting, unspecified (ICD-10) ?Z98.890 - Other specified postprocedural states (ICD-10) Hernia ?K46.9 - Unspecified abdominal hernia without obstruction or gangrene (ICD-10) Pelvic pain ?R10.2 - Pelvic and perineal pain (ICD-10) Dyspareunia Dysmenorrhea ?N94.6 - Dysmenorrhea, unspecified (ICD-10) Menorrhagia ?N92.0 - Excessive and frequent menstruation with regular cycle (ICD-10) Surgical History (Updated 03/27/23 @ 13:10 by Deneen Ayala NP) History of section ?Z98.891 - History of uterine scar from previous surgery (ICD-10) History of section ?Z98.891 - History of uterine scar from previous surgery (ICD-10) H/O tubal ligation ?Z98.51 - Tubal ligation status (ICD-10) H/O lithotripsy ?Z98.890 - Other specified postprocedural states (ICD-10) History of endometrial ablation (11/16/21) ?Z98.890 - Other specified postprocedural states (ICD-10) History of cholecystectomy ?Z90.49 - Acquired absence of other specified parts of digestive tract (ICD-10) History of ankle surgery ?Z98.890 - Other specified postprocedural states (ICD-10) Family History (Updated 03/27/23 @ 13:10 by Deneen Ayala NP) Other Family history of DVT Family history of cancer Family history of heart disease Family history of hypertension Social History Within the past year, how often did you have a drink containing alcohol: monthly or less Smoking status: Never smoker Non-prescribed substance use: denies use 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 General: The patient appears well and in no apparent distress. Patient is resting comfortably on cart. Skin: Warm, dry, no pallor noted. There is no rash noted. Head: Normocephalic, atraumatic Eye: Normal conjunctiva, no drainage Ears, Nose, Mouth, and Throat: oral mucosa is moist. Nares patent. Cardiovascular: Regular Rate and Rhythm Respiratory: Patient is in no distress, no accessory muscle use, lungs are clear to auscultation, no wheezing, rales or rhonchi Back: non-tender GI: Obese, mild tenderness in the epigastric area and right upper quadrant. No masses Musculoskeletal: The patient has no evidence of calf tenderness, no pitting edema, symmetrical pulses noted bilaterally Neurological: A&O, normal speech Psychiatric: Cooperative Constitutional Vital Signs, click to edit/add: Last Vital Signs Temp 98.5 F 03/16/25 15:40 Pulse 97 H 03/16/25 15:40 Resp 18 03/16/25 15:40 BP 138/82 03/16/25 15:40 Pulse Ox 99 03/16/25 15:40 O2 Del Method Room Air 03/16/25 15:40 Course Vital Signs Vital signs: Vital Signs Temperature 98.5 F 03/16/25 15:40 Pulse Rate 97 H 03/16/25 15:40 Respiratory Rate 18 03/16/25 15:40 Blood Pressure 138/82 03/16/25 15:40 Pulse Oximetry 99 03/16/25 15:40 Oxygen Delivery Method Room Air 03/16/25 15:40 Temperature 98.5 F 03/16/25 15:40 Pulse Rate 97 H 03/16/25 15:40 Respiratory Rate 18 03/16/25 15:40 Blood Pressure 138/82 03/16/25 15:40 Pulse Oximetry 99 03/16/25 15:40 Oxygen Delivery Method Room Air 03/16/25 15:40 Medical Decision Making MDM Narrative Medical decision making narrative: Blood work is normal and CAT scan suggests mild constipation, otherwise negative. She was recommended MiraLAX. Treatment diagnosis and follow-up were discussed with the patient. Differential Diagnosis Differential Diagnosis: Constipation, colitis, diverticulitis, pancreatitis, hepatitis Lab Data Lab results reviewed: Yes I reviewed the patient's lab results Labs: Lab Results 03/16/25 03/16/25 Range/Units 16:45 16:57 WBC 8.7 (4.0-11.0) 10^3/uL RBC 4.63 (4.20-5.40) 10^6/uL Hgb 14.0 (12.0-16.0) g/dL Hct 42.0 (36.0-48.0) % MCV 90.7 (81.0-99.0) fL MCH 30.2 (26.7-34.0) pg MCHC 33.3 (29.9-35.2) g/dL RDW 12.5 (11.0-15.0) % Plt Count 246 (150-450) 10^3/uL MPV 9.7 (9.5-13.5) fL Neut % (Auto) 65.2 (43.0-75.0) % Lymph % (Auto) 26.9 (20.5-60.0) % [place] % (Auto) 6.8 (1.7-12.0) % Eos % (Auto) 0.7 L (0.9-7.0) % Baso % (Auto) 0.2 (0.2-2.0) % Neut # (Auto) 5.7 (1.4-6.5) 10^3/uL Lymph # (Auto) 2.4 (1.2-3.8) 10^3/uL [place] # (Auto) 0.6 (0.3-0.8) 10^3/uL Eos # (Auto) 0.1 (0.0-0.7) 10^3/uL Baso # (Auto) 0.0 (0.0-0.1) 10^3/uL Abs Immat Gran (auto) 0.02 (0.00-0.03) 10^3/uL Imm/Tot Granulo (auto) 0.2 (0.0-0.5) % Sodium 140 (136-145) mmol/L Potassium 3.3 L (3.5-5.1) mmol/L Chloride 105 (98-107) mmol/L Carbon Dioxide 28.6 (21.0-32.0) mmol/L Anion Gap 9.7 BUN 13.0 (7.0-18.0) mg/dL Creatinine 0.69 (0.55-1.02) mg/dL Est GFR ( Amer) >60 (>=60 mL/min/1.73m^2) Est GFR (Non-Af Amer) >60 (>=60 mL/min/1.73m^2) BUN/Creatinine Ratio 18.8 Glucose 92 (74-106) mg/dL Calcium 8.5 (8.5-10.1) mg/dL Total Bilirubin 0.4 (0.2-1.0) mg/dL Direct Bilirubin 0.1 (0.0-0.2) mg/dL AST 32 (15-37) U/L ALT 51 (14-59) U/L Alkaline Phosphatase 73 (46-116) U/L Total Protein 7.4 (6.4-8.2) g/dL Albumin 3.4 (3.4-5.0) g/dL Globulin 4.0 g/dL Albumin/Globulin Ratio 0.9 Amylase 26 (25-115) U/L Lipase 31.0 (16.0-77.0) U/L Urine Color Yellow (YELLOW) Urine Clarity Clear (CLEAR) Urine pH 6.0 (5.0-9.0) Ur Specific [place] 1.025 (1.005-1.025) Urine Protein Negative (NEG/TRACE) mg/dL Urine Glucose (UA) Negative (NEGATIVE) mg/dL Urine Ketones Trace A (NEGATIVE) mg/dL Urine Occult Blood Small A (NEGATIVE) Urine Nitrite Negative (NEGATIVE) Urine Bilirubin Negative (NEGATIVE) Urine Urobilinogen 1.0 (0.2-1.0) EU/dL Ur Leukocyte Esterase Negative (NEGATIVE) Urine RBC 5-10 A (0-2) #/HPF Urine WBC 0-2 A (NONE SEEN) #/HPF Ur Squamous Epith Cells Few A (NONE/RARE) #/LPF Urine Crystals None seen (None Seen) #/HPF Urine Bacteria Trace A (NONE SEEN) #/HPF Urine Casts None seen (NONE SEEN) #/LPF Urine Mucus None seen (NONE SEEN) Ur Culture Indicated? No Imaging Data CT scan - abdomen: Radiologist's impression: ITS Impressions Abdomen/Pelvis CT 03/16/25 18:07 IMPRESSION: Negative acute inflammatory process or bowel obstruction. Ventral hernia containing fat noted. Impression dictated by: Silver Abbasi M.D. 03/16/2025 6:51 PM Dictation Location: [place] [address] Electronically authenticated by: [id number] Y Date: 03/16/2025 18:51 Discharge Plan Discharge Chief Complaint: Abdominal Pain Clinical Impression: Constipation Patient Disposition: Home, Self-Care Time of Disposition Decision: 18:59 Condition: Good Mode of Transportation: Private Vehicle Prescriptions / Home Meds: No Action qyjxqadhym-vzsmfedoocqyi-apso 50-300-40 mg capsule ondansetron 4 mg tablet,disintegrating 4 mg PO Q6H PRN (Reason: nausea and vomiting) Qty: 12 0RF estradiol 0.075 mg/24 hr patch weekly hydroxyzine HCl 25 mg tablet desvenlafaxine succinate 50 mg tablet extended release 24 hr PO Print Language: Moroccan Instructions: Constipation (ED) Referrals: Rojelio Donato MD [Primary Care Provider, Family Practice] - 1 week
[2025-03-16 17:18] LABS: Glucose Urine UA NEGATIVE (NEGATIVE)
[2025-03-16 17:19] LABS: Hematocrit 42.0 % (36.0-48.0); Hemoglobin 14.0 g/dL (12.0-16.0); Immature Granulocytes Abs Auto 0.02 10^3/uL (0.00-0.03); Immature Granulocytes Pct Auto 0.2 % (0.0-0.5); Lymphocytes Absolute Auto 2.4 10^3/uL (1.2-3.8); Mean Corpuscular HGB Conc 33.3 g/dL (29.9-35.2); Mean Corpuscular Hemoglobin 30.2 pg (26.7-34.0); Mean Corpuscular Volume 90.7 fL (81.0-99.0); Platelet Count 246 10^3/uL (150-450); Red Blood Count 4.63 10^6/uL (4.20-5.40); White Blood Count 8.7 10^3/uL (4.0-11.0)
[2025-03-16 17:27] LABS: Cast Seen? NONE SEEN #/LPF (NONE SEEN); Crystals Seen? None Seen #/HPF (None Seen); Urine Culture Indicated NO
[2025-03-16] MEDS: KETOROLAC TROMETHAMINE 30 MG/ML VIAL IVP (17:38)
[2025-03-16 17:55] LABS: Alanine Aminotransferase 51 U/L (14-59); Albumin Globulin Ratio 0.9; Albumin Level 3.4 g/dL (3.4-5.0); Alkaline Phosphatase 73 U/L (46-116); Amylase 26 U/L (25-115); Anion Gap 9.7; Aspartate Amino Transferase 32 U/L (15-37); Blood Urea Nitrogen 13.0 mg/dL (7.0-18.0); Calcium 8.5 mg/dL (8.5-10.1); Carbon Dioxide 28.6 mmol/L (21.0-32.0); Chloride 105 mmol/L (98-107); Estimated GFR (African America >60 (>=60 mL/min/1.73m^2); Estimated GFR (Non-African Ame >60 (>=60 mL/min/1.73m^2); Globulin 4.0 g/dL; Glucose 92 mg/dL (74-106); Lipase 31.0 U/L (16.0-77.0); Potassium 3.3 mmol/L (3.5-5.1); Sodium 140 mmol/L (136-145); Total Protein 7.4 g/dL (6.4-8.2)
--- NOTE | 2025-03-16 18:07 | CT_ITS ---
The [address] [address] Patient Name: ABDIRAHMAN VARGAS MRN: [id number] date: 1995 Sex: F Assigned Patient Location: ER Current Patient Location: ER Accession/Order Number: [id number] Exam Date: 03/16/2025 18:47 Report Date: 03/16/2025 18:51 At the request of: KIKI ABRAMS MD Procedure: CT abdomen pelvis w con CT ABDOMEN AND PELVIS WITH INTRAVENOUS CONTRAST: CLINICAL HISTORY: Upper abdominal pain COMPARISON: 08/14/2023 TECHNIQUE: Spiral images were obtained through the abdomen and pelvis following the administration of intravenous contrast. This CT exam was performed using one or more following dose reduction techniques: Automated exposure control, adjustment of the mA and/or kV according to patient size, or use of iterative reconstruction technique. FINDINGS: Lung Bases: [No focal opacity] Organs:Gallbladder absent. Otherwise the liver, spleen, adrenals, kidneys, and pancreas are unremarkable.[ GI: Mild retained stool throughout the colon. No bowel obstruction. Appendix unremarkable. Colonic diverticulosis.[ Pelvis:[Bladder unremarkable. Uterus absent. No suspicious adnexal mass.] Suspected left ovarian follicle. Peritoneum/Retroperitoneum:No free air or free fluid. Aorta normal caliber. No diastases or psoas muscle with fat-containing ventral abdominal hernia noted measuring 4.7 cm.[ Abd wall/Bones:Straightening normal lordosis. Vertebral heights maintained.[ CT/CT abdomen pelvis w con IMPRESSION: Negative acute inflammatory process or bowel obstruction. Ventral hernia containing fat noted. Impression dictated by: Silver Abbasi M.D. 03/16/2025 6:51 PM Dictation Location: [place] [address] Electronically authenticated by: [id number] Y Date: 03/16/2025 18:51
== END 2025-03-16 19:07 | disposition home or self-care (01) ==
PROVIDERS: Emergency Provider Emergency Medicine; PCP Family Medicine
DX: K59.00 Constipation, unspecified (principal); Z90.49 Acquired absence of other specified parts of digestive tract; Z98.51 Tubal ligation status; K43.9 Ventral hernia without obstruction or gangrene
CPT/HCPCS: 36415; 74177; 80048; 80076; 81001; 82150; 83690; 85025; 96374; 99285; J1885; Q9967

== ENCOUNTER 2025-05-01 13:22 | Emergency (ER) | payer OTHER, SELFPAY ==
--- OUTSIDE RECORDS SUMMARY | 2025-04-11 11:00 | XMS_ITS ---
Author Organization [facility] [place] Address [address] [place] [address] Care Team Providers Care Meat Stocker Name Role Phone Caesar Donato Primary Care Provider [phone] REASON FOR VISIT rf Fiorcet Medications Medication SIG (Take, Route, Frequency, Duration) Notes Start Date End Date Status Jntbgrekba-MIJJ-Sozqtuux 50-300-40 MG TAKE 1 CAPSULE BY MOUTH EVERY 4 HOURS NEEDED for 30 PRN 04/11/2025 Active Encounters Encounter Location Date Provider Diagnosis [place] [id number] [place] [address] 04/11/2025 Caesar Donato Obesity E66.9 Assessments Encounter Date Diagnosis (ICD Code) Assessment Notes Treatment Notes Treatment Clinical Notes Section Notes 04/11/2025 Obesity (ICD-10 - E66.9) Plan Of Treatment Medication Medication Name Sig Start Date Stop Date Notes Smzqihzthk-BSHR-Ccvwuxnk 50-300-40 MG TAKE 1 CAPSULE BY MOUTH EVERY 4 HOURS NEEDED for 30 04/11/2025 PRN Progress Notes * Connie SALCIDO MDOB: 4 (29 yo F)Acc No.[id number]:04/11/2025 Patient: Connie ARITA :1995 A ge:29 Y S ex:Female Address:[address], [address], [place] [address] * Refills Refill Uxqxogshwv-SYTK-Vrcwxikz Capsule, 50-300-40 MG, 30 Capsule, TAKE 1 CAPSULE BY MOUTH EVERY 4 HOURS NEEDED, 30, Refills=0 * true * Date: Generated for Galo nix/Vicky/Anitaitting on: 0 05/01/2025 01:30 PM EDT
--- OUTSIDE RECORDS SUMMARY | 2025-04-15 09:00 | XMS_ITS ---
Author Organization The [facility] in [place] Address [address] [place] [address] Care Team Providers Care Parking Lot Laborer Name Role Phone Caesar Donato Primary Care Provider Allergies Allergen (clinical drug ingredient) Drug/Non Drug Allergy documented on EMR Reaction Allergy Type Onset Date Status meloxicam Meloxicam headache Drug Allergy Active REASON FOR VISIT Presents to office with for migraine x1 day. Oral meds not helping Medications Medication SIG (Take, Route, Frequency, Duration) Notes Start Date End Date Status Ondansetron 4 MG 1 tablet on the tong ue and allow to dissolve Orally Once a day for 30 days PRN 05/31/2024 Active Pristiq 50 MG 1 tablet Orally Once a day for 30 days 09/20/2024 Active hydrOXYzine HCl 25 MG 1 tablet as needed Orally qid for 10 days 03/10/2025 Active Cyclobenzaprine HCl 10 MG 1 tablet Orall y tid for 30 days PRN 10/27/2024 Active Tkmdhpkxit-BUFO-Twddnixu 50-300-40 MG TAKE 1 CAPSULE BY MOUTH EVERY 4 HOURS NEEDED for 30 PRN 04/11/2025 Active Social History Tobacco Use: Social History [...] Problem Status W/U Status Risk Notes Problem Hydrocephalus (G91.9) Active confirmed Vital Signs Weight 304.8 lbs 04/15/2025 Height 61 in 04/15/2025 Blood pressure systolic 146 mm Hg 04/15/20 25 Blood pressure diastolic 100 mm Hg 025 BMI 57.59 kg/m2 04/15/2025 Encounters Encounter Location Date Provider Diagnosis [facility] [address] [place] [address] 04/15/2025 Caesar Hopatt Migraine G43.909 and Hydrocephalus G91.9 Assessments Encounter Date Diagnosis (ICD Code) Assessment Notes Treatment Notes Treatment Clinical Notes Section Notes 04/15/2025 Migraine (ICD-10 - G43.909) 04/15/2025 Hydrocephalus (ICD-10 - G91.9) 04/15/2025 Other Take NSAIDs as needed for pain. Discussed avoiding headache triggers and improiving diet and sleep habits to prevent headaches. Plan Of Treatment Treatment Notes Assessment Notes Other Take NSAIDs as neede d for pain. Discussed avoiding headache triggers and improiving diet and sleep habits to prevent headaches. Pending Test Test Name Order Date MRI BRAIN WO CON 04/15/2025 Medications Administered Medication Instructions Date of Administration Dosage Notes Orphenadrine Citrate 04/15/2025 60 mg Ketorolac Tromethamine 04/15/2025 60 mg Ondansetron HCl 04/15/2025 4 mg Progress Notes * Connie SALCIDO MDOB: 4 (29 yo F)Acc No.[id number]:04/15/2025 Progress Note Patient: Shane MEENAMILADYS Connie Hernandez Provider: Matty Donato ([facility])MD :1995 A ge:29 Y S ex:Female Date:04/15/2025 Address:[address] [place] [address] [place], [id number] Check In:12:57 PM ESTCheck O ut:01:15 PM EST Subjective: * Chief Complaints: * P resents to office with for migraine x1 day. Oral meds not helping * HPI: G eneral: miaione = feel;s lioke typical but severe hx of hydrocephalus. H eadache: The patient complains of h eadache. Patient describes headache as - . Patient believes headaches are related to injury n o. Suspected triggers - . Symptoms have been present for 1 -2 days. The symptoms are m oderate. Symptomatic treatment has included N SAIDs. Associated symptoms include n gomez pain, diziness, fatigue.? * ROS: G eneral/Constitutional: Lightheadedness d enies. C hange in appetite d enies. W eight Change d enies. C ardiovascular: Irregular Heartbeat d enies. S welling in hands/feet?denies. R espiratory: Shortness of breath d enies. S hortness of breath at rest d enies. W heezing d enies. N eurologic: Comments S [facility] for details. 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, left an kle Modified On:06/18/2023U Status:confirmed M24.571 Contracture, right a nkle Modified On:06/18/2023U Status:confirmed M72.2 Plantar fascial fibr omatosis Modified [...] Sciatica Modified On:02/20/2024U Status:confirmed F41.9 Anxiety Modified On:04/09/2024U Status:confirmed F32.9 Depression Modified On:04/09/2024U Status:confirmed M25.551 Hip pain, acute, rig ht Modified On:09/10/2024/U Status:confirmed K43.9 Ventral hernia Modified On:03/17/2025/U Status:confirmed G91.9 Hydrocephalus Modified On:04/15/2025/U Status:confirmed * Medical History: * Surgical History: [...] I nterpretation N egative * Medications: T ongdnIhlrmzwqsg-JOQK-Kdrxzors 50-300-40 MG Capsule TAKE 1 CAPSULE BY MOUTH EVERY 4 HOURS NEEDED , Notes to Pharmacist: PRNCyclobenzaprine HCl 10 MG Tablet 1 tablet Orally tid , Notes to Pharmacist: PRNhydrOXYzine HCl 25 MG Tablet 1 tablet as needed Orally qid Ondansetron 4 MG Tablet Disintegrating 1 tablet on the tongue and allow to dissolve Orally Once a day , Notes to Pharmacist: PRNPristiq(Desvenlafaxine Succinate ER) 50 MG Tablet Extended Release 24 Hour 1 tablet Orally Once a day Taking Zqknhvpzdt-XINB-Ruwhiihj 50-300-40 MG Capsule TAKE 1 CAPSULE BY MOUTH EVERY 4 HOURS NEEDED , Notes to Pharmacist: PRNTaking Cyclobenzaprine HCl 10 MG Tablet 1 tablet Orally tid , Notes to Pharmacist: PRNTaking hydrOXYzine HCl 25 MG Tablet 1 tablet as needed Orally qid Taking Ondansetron 4 MG Tablet Disintegrating 1 tablet on the tongue and allow to dissolve Orally Once a day , Notes to Pharmacist: PRNTaking Pristiq(Desvenlafaxine Succinate ER) 50 MG Tablet Extended Release 24 Hour 1 tablet Orally Once a day DiscontinuedAdipex-P(Phentermine HCl) 37.5 MG Tablet 1 tablet before breakfast Orally Once a day Cephalexin 500 MG Tablet 2 tabs Orally bid levoFLOXacin 750 MG Tablet 1 tablet Orally Once a day Pyridium(Phenazopyridine HCl) 200 MG Tablet 1 tablet after meals Orally Three times a day Pyridium(Phenazopyridine HCl) 200 MG Tablet 1 tablet after meals Orally Three times a day Medication List reviewed and reconciled with the patientDiscontinued Adipex-P(Phentermine HCl) 37.5 MG Tablet 1 tablet before breakfast Orally Once a day Discontinued Cephalexin 500 MG Tablet 2 tabs Orally bid Discontinued levoFLOXacin 750 MG Tablet 1 tablet Orally Once a day Discontinued Pyridium(Phenazopyridine HCl) 200 MG Tablet 1 tablet after meals Orally Three times a day Discontinued Pyridium(Phenazopyridine HCl) 200 MG Tablet 1 tablet after meals Orally Three times a day Medication List reviewed and reconciled with the patient * Allergies: M eloxicam: headacheno[Allergies Verified] Objective: * Vitals: W t:304.8lbs, Ht: 61 in, BP:146/100mm Hg, BMI:57.59Index, Ht-cm: 154.94 cm, Wt-k.26 kg. * Examination: G eneral Examination: GENERAL APPEARANCE: in no acute distress, well developed, well nourished. LUNGS: clear to auscultation bilaterally. CARDIO: S1, S2 normal, no murmurs, rubs, gallops. EXTREMITIES: no clubbing, cyanosis, or edema. NEUROLOGIC: alert, oriented to time, place, & person.? Assessment: * Assessment: 1. M igraine - G43.909 (Primary) 2 . H ydrocephalus - G91.9 ? Plan: * Treatment: 2. H ydrocephalus I maging: MRI BRAIN WO CON 3. O thers Notes:Take NSAIDs as needed for pain. Discussed avoiding headache triggers and improiving diet and sleep habits to prevent headaches. * Therapeutic Injections: Ketorolac Tromethamine : 60 mg (Route: Intramuscular) given by IRENE Salgado on left gluteus (Migraine) Orphenadrine Citrate : 60 mg (Route: Intramuscular) given by IRENE Salgado on right gluteus (Migraine) Ondansetron 4MG : 4 mg (Route: Intramuscular) given by IRENE Salgado on right gluteus (Migraine) * Procedure Codes: 9 6372 THERAP.INJ. OF MED. INTRAMUSCULAR OR [id number] TORADOL, PER 15 MG, Units: 4.00 , Modifiers: JZ J2360 NORFLEX,UP TO 60MG.J2405 ZOFRAN 1MG., Units: 4.00 * Preventive Medicine: Screenings/Counseling: B [place] ACTION PLAN Above Normal BMI Follow-up D ietary management education, guidance, and counseling See treatment section of progress note for complete details of management plan. * * Sign off status: Completed Visit Status: C HK (Check Out) true * Provider: Matty Donato (TTC)MD Date: 0 04/15/2025 Generated for Galo nix/Vicky/Anitaitting on: 05/01/2025 01:30 PM EDT History and Physical Notes * HPI (History of Present Illness) Category Sub-Category Detail Notes Category Not es Headache The patient complains of headache Patient describes headache as - Patient believes headaches are related t o injury no Suspected triggers - Symptoms have been present for 1-2 days The symptoms are moderate Symptomatic treatment has included NSAID s Associated symptoms include neck pain, d iziness, fatigue General miaione = feel; s lioke typical but severe hx of hydrocephalus Examination Category Sub-Category Detail Notes Category Not es General Examination GENERAL APPEARANCE: in no ac [place] distress, well developed, well nourished CARDIO: S1, S2 normal, no mu rmurs, rubs, gallops LUNGS: clear to auscultatio n bilaterally NEUROLOGIC: alert, oriented to t lui, place, & person EXTREMITIES: no clubbing, cyanosi s, or edema
--- OUTSIDE RECORDS SUMMARY | 2025-04-25 13:15 | XMS_ITS ---
Author Organization The [facility] in [place] Address [address] [place] [address] Care Team Providers Care Zigzagger Name Role Phone Caesar Donato Primary Care Provider [phone] REASON FOR VISIT diet Encounters Encounter Location Date Provider Diagnosis [facility] [address] [place] [address] 04/25/2025 Caesar Donato Plan Of Treatment No Information Progress Notes * Connie SALCIDO MDOB: 4 (29 yo F)Acc No.[id number]:04/25/2025 UNLOCKED PROGRESS NOTE Progress Note Patient: Connie ARITA Provider: Matty Donato MD (TTC) :1995 A ge:29 Y S ex:Female Date:04/25/2025 Address: [facility], [address], [place], [id number] Subjective: * Chief Complaints: * 1 . Diet. * Medical History: Objective: * Vitals: Assessment: Plan: * Treatment: * * Electronic signature of Caesar Donato MD, [id number] on 05/01/2025 at 01:30 PM EDT Sign off status: Pending Visit Status: N /S N/C (No Show/No Charge) * Provider: Matty Donato MD (TTC) Date: 04/25/2025 Generated for Galo nix/Vicky/Anitaitting on: 0 05/01/2025 01:30 PM EDT
--- OUTSIDE RECORDS SUMMARY | 2025-04-29 10:56 | XMS_ITS | Encounter Summary ---
Author Organization [facility] Address [address] [place] [address] Care Team Providers Care Expeller Worker Name Role Phone Rojelio Donato MD Primary Care Provider [phone] Reason for Visit * Auth/Cert (Routine) Specialty Diagnoses / Procedures Referred By Reg flores Referred To Contact Diagnoses Incisional hernia, without obstruction or gangrene Incisional hernia, without obstruction or gangrene [K43.2] Procedures [place] [facility] AA HERNIA 1ST < 3 CM REDUCIBLE ROBOTIC INCISIONAL HERNIA REPAIR WITH MESH Tk Herrera MD [address] [address] Phone: tel: fax: [facility] Main Operating Room [address] [place] [address] Phone: tel: fax: Referral ID Status Reason Start Date Expiration Date Visits Re quested Visits Authorized [id number] 1 1 Encounter Details Date Type Department Care Team (Late st Contact Info) Description 04/29/2025 10:56 AM EDT - 04/29/2025 6:29 PM EDT Hospital Encounter [facility] Main Operating Room [address] [place] [address] Tk Herrera MD [address] [address] Incisional hernia, without obstruction or gangrene Discharge Disposition: Home or Self Care () Social History Tobacco Use Types Packs/Day Years Used Date Smoking Tobacco: Never Smokeless Tobacco: Never Alcohol Use Standard Drinks/Week Comments Defer 0 (1 standard drink = 0.6 oz pur e alcohol) Humiliation, Afraid, Rape, and Kick questionnair e Answer Date Recorded Within the last year, have y ou been afraid of your partner or ex-partner? No 03/30/2025 Emotionally Abused Not on file 03/30/2025 Physically Abused Not on file 03/30/2025 Sexually Abused Not on file 03/30/2025 PHQ-2 Answer Date Recorded Patient Health Questionnaire-2 Score 0 03/30/2025 Comments No Sex and Gender Information Value Date Recorded Sex Assigned at Female 04/29/2025 10:54 AM EDT Legal Sex Female 9:39 PM EDT Gender Identity Female 04/29/2025 10:54 AM EDT Sexual Orientation Heterosexual or Straight 04/09 10:54 AM EDT documented as of this encounter Last Filed Vital Signs Vital Sign Reading Time Taken Comments Blood Pressure 145/93 04/29/2025 5:40 PM EDT Pulse 87 04/29/2025 5:40 PM EDT Temperature 36.4 C (97.5 F) 04/29/2025 4:25 PM EDT Respiratory Rate 33 04/29/2025 5:40 PM EDT Oxygen Saturation 98% 04/29/2025 5:40 PM EDT Inhaled Oxygen Concentration - - Weight 135 kg (298 lb 1 oz) 04/29/2025 11:12 AM EDT Height 154.9 cm (5' 1 ) 04/29/2025 11:12 AM EDT Body Mass Index 56.32 04/29/2025 11:12 AM EDT documented in this encounter Discharge Instructions * Discharge Instructions* John Pena MD - 04/29/2025 4:25 PM EDT Per hernia office instructions Please keep the abdominal binder on for 2 months after surgery Please call the office for a visit in 7-10 days You may shower starting tomorrow but no soaking in water for 1 week No strenuous activities or heavy lifting more than 15 IBS for 3 weeks Please use over the counter painkillers Tylenol 650 mg every 6 hrs as needed, as well as Ibuprofen 600 mg every 6 hrs for pain as needed alteratively. * Attachments The following attachments cannot be sent through Care Everywhere. * Hernia Adult [facility] ([facility]) * General Anesthesia Adult Care After ([facility]) documented in this encounter Medications at Time of Discharge acetaminophen (Tylenol) 500 mg tabletIndications :Incisional hernia, without obstruction or gangrene Take 2 tablets (1,000 mg) by mouth every 6 (six) hours if needed for mild pain (1-3 pain score) for up to 10 days. 30 tablet 04/29/2025 05/09/2025 butalbital-acetam inophen-caff (Fioricet) 50-300-40 mg capsule Take 1 capsule by mouth every 8 (eight) hours if needed. 02/22/2025 cyclobenzaprine (Flexeril) 10 mg tablet every 8 (eight) hours. 10/27/2024 estradiol (Climara) 0.075 mg/[address] 1 patch on the skin once a week oxyCODONE (Roxicodone) 5 mg immediate release tabletIndications :Incisional hernia, without obstruction or gangrene Take 1 tablet (5 mg) by mouth every 6 (six) hours if needed for severe pain (8-10 pain score) for up to 15 doses. 15 tablet 04/29/2025 documented as of this encounter H&P Notes * Tk Herrera MD - 04/29/2025 11:38 AM EDT H&P reviewed. The patient was examined and there are no changes to the H&P. Source Note - Tk Herrera MD - 03/30/2025 2:30 PM EDT Images from the original note were not included. mraSubjective Patient ID: Connie Salcido is a 29 y.o. female who presents for Consult (Patient here for a consult of a ventral hernia. ). HPI 29 years old morbid obesity white female is visiting for supraumbilical incisional hernia for more than 2 years. She had laparoscopic hysterectomy through supraumbilical incision trocar placement. She denies of nausea, vomiting, abdominal pain. Review of Systems Constitutional: Negative. HENT: Negative. Eyes: Negative. Respiratory: Negative. Cardiovascular: Negative. Gastrointestinal: Positive for abdominal pain. Endocrine: Negative. Genitourinary: Positive for dysuria. Musculoskeletal: Positive for arthralgias and back pain. Skin: Negative. Allergic/Immunologic: Positive for environmental allergies. Neurological: Negative. Hematological: Negative. Objective Visit Vitals BP (!) 141/94 (BP Location: Left arm, Patient Position: Sitting, BP Cuff Size: Adult) Pulse 77 Temp 36.7 ??C (98 ??F) Resp 17 Physical Exam Constitutional: Appearance: She is obese. HENT: Head: Atraumatic. Cardiovascular: Rate and Rhythm: Normal rate. Pulmonary: Effort: Pulmonary effort is normal. Abdominal: General: Abdomen is flat. Palpations: Abdomen is soft. Hernia: A hernia is present. Hernia is present in the ventral area. Musculoskeletal: Cervical back: Neck supple. Neurological: Mental Status: She is alert. Assessment/Plan Incisional hernia Morbid obesity Recommend weight loss regimen Schedule robotic incisional hernia repair with mesh, informed consent was obtained. No diagnosis found. No orders of the defined types were placed in this encounter. No results found for this or any previous visit (from the past 36 hours). No follow-ups on file. documented in this encounter Nursing Notes * Taylor Ford RN - 04/29/2025 6:14 PM EDT Pt alert and oriented x4, No signs of respiratory distress, discharged in stable condition. Pt walks with a steady gait, without assistance. Pt verbalized discharge instructions and follow up information. Pt transported via wheelchair to vehicle with responsible republican at this time. documented in this encounter Miscellaneous Notes * Significant Event - Sidra Pope RN - 04/29/2025 6:29 PM EDT Housing Quality Standard Inspector answered multiple questions regarding self care and activity. Pt verbalized understanding and reminded that a physician is available 31/03 if any farther questions. documented in this encounter Plan of Treatment Upcoming Encounters Date Type Department Care Team (Late st Contact Info) Description 05/11/2025 2:00 PM EDT Office Visit [facility] Surgery Clinic [address] [place] [address] Tk Herrera MD [address] [address] documented as of this encounter Procedures Procedure Name Priority Date/Time Associated Diagnosis Comments POCT GLUCOSE METER UNSOLICITED RESULTS Routine 04/29/2025 11:36 AM EDT documented in this encounter Results * POCT glucose meter (04/29/2025 11:36 AM EDT) Glucose POC 92 70 - 105 mg/dL 04/29/2025 11:52 AM EDT [facility] Comment:ngrotha Blood Capillary blood specimen / Unknown 04/29/2025 11:36 AM EDT 04/29/2025 11:52 AM EDT Narrative [facility] - 04/29/2025 11:52 AM EDT Waived Testing in the ED is performed under the ED CLIA certificate #[id number]. us Tk Herrera MD LAB BLOOD ORDERABLES Final Resul t [facility] [address] [place], [place] [id number] documented in this encounter Visit Diagnoses Diagnosis Incisional hernia, without obstruction or gangrene- Primary Incisional hernia, without obstruction or gangrene documented in this encounter Admitting Diagnoses Diagnosis Incisional hernia, without obstruction or gangrene documented in this encounter Administered Medications Inactive Administered Medications - up to 3 most recent administrations Medication Order MAR Action Action Date Dose Rate Site fentaNYL (Sublimaze) injection 50 mcg 50 mcg, intravenous, Every 15 min PRN, severe pain (8-10 pain score), First choice for severe pain (8-10), Starting on Fri04/29/25 at 1622, For 4 doses, Recovery (only) Given 04/29/2025 5:05 PM EDT 50 mcg HYDROmorphone (Dilaudid) injection 0.5 mg 0.5 mg, intravenous, Every 15 min PRN, severe pain (8-10 pain score), Second choice for severe pain (8-10), Starting on Fri04/29/25 at 1622, For 4 doses, Recovery (only) Given 04/29/2025 4:32 PM EDT 0.5 mg lactated Ringer's infusion 30 mL/hr, intravenous, Continuous, Starting on Fri04/29/25 at 1115, For 99 days, Preprocedure, Indication: procedure Given 04/29/2025 4:04 PM EDT 1,500 mL New Bag 04/29/2025 12:31 PM EDT 1 mL/hr 1 mL/hr oxyCODONE (Roxicodone) immediate release tablet 5 mg 5 mg, oral, Every 6 hours PRN, severe pain (8-10 pain score), Starting on Fri04/29/25 at 1649, For 5 days, Recovery & On Unit prochlorperazine (Compazine) injection 5 mg 5 mg, intravenous, Once as needed, nausea, vomiting, Starting on Fri04/29/25 at 1622, For 1 dose, Recovery & On Unit, Use prochlorperazine first and then use ondansetron if prochlorperazine is ineffective. Given 04/29/2025 4:32 PM EDT 5 mg sodium chloride flush 10 mL 10 mL, intravenous, Every 8 hours PRN, line care, Starting on Fri04/29/25 at 1110, For 99 days, Preprocedure documented in this encounter Active and Recently Administered Medications Times are shown in EDT. Scheduled Medication Order 04/27/2025 04/28/2025 04/29/2025 BUPivacaine liposome (Exparel) 1.3 % (13.3 mg/mL) injection 266 mg (COMPLETED) 266 mg (20 mL), infiltration, Once, On Fri04/29/25 at 1215, For 1 dose, Intraprocedure, Indication: TAP block 1215 (Due)1331 (Give n - Provider: Tk Herrera MD - Comment: 20mls of exparel 1.3% mixed with 20mls of injectable normal saline to equal 40mls of sterile field. 40mls of mixture injected into surg sites x 3) ceFAZolin (Ancef) IV syringe 3 g (COMPLETED) 3 g, intravenous, Once, On Fri04/29/25 at 1115, For 1 dose, Preprocedure, Suspected Indication (Select all that apply): Surgical Prophylaxis 1259 (Given - Provid er: Tra Ochoa MD)1626 (Anesthesia Volume Adjustment - Provider: Tra Ochoa MD) gentamicin (Garamycin) 80 mg in sodium chloride irrigation solution 0.9 % 200 mL irrigation 80 mg, irrigation, Once, On Fri04/29/25 at 1630, For 1 dose, Intraprocedure, Indication: Surgical Prophylaxis 1630 (Canceled Entry - Provider: Automatic Discharge Provider - Comment: Automatically canceled at discontinue of medication order) Continuous Medication Order 04/27/2025 04/28/2025 04/29/2025 lactated Ringer's infusion 30 mL/hr, intravenous, Continuous, Starting on Fri04/29/25 at 1115, For 99 days, Preprocedure, Indication: procedure 1231 (New Bag - Prov ider: Tra Ochoa MD)1604 (Given - Provider: Tra Ochoa MD)1617 (Stopped - Provider: Tra Ochoa MD)1626 (Anesthesia Volume Adjustment - Provider: Tra Ochoa MD) PRN Medication Order 04/27/2025 04/28/2025 04/29/2025 fentaNYL (Sublimaze) injection 50 mcg (CANCELED) 50 mcg, intravenous, Every 15 min PRN, severe pain (8-10 pain score), First choice for severe pain (8-10), Starting on Fri04/29/25 at 1622, For 4 doses, Recovery (only) 1705 (Given - Provid er: Taylor Ford RN) HYDROmorphone (Dilaudid) injection 0.5 mg (CANCELED) 0.5 mg, intravenous, Every 15 min PRN, severe pain (8-10 pain score), Second choice for severe pain (8-10), Starting on Fri04/29/25 at 1622, For 4 doses, Recovery (only) 1632 (Given - Provid er: Taylor Ford RN) oxyCODONE (Roxicodone) immediate release tablet 5 mg 5 mg, oral, Every 6 hours PRN, severe pain (8-10 pain score), Starting on Fri04/29/25 at 1649, For 5 days, Recovery & On Unit prochlorperazine (Compazine) injection 5 mg (COMPLETED) 5 mg, intravenous, Once as needed, nausea, vomiting, Starting on Fri04/29/25 at 1622, For 1 dose, Recovery & On Unit, Use prochlorperazine first and then use ondansetron if prochlorperazine is ineffective. 1632 (Given - Provid er: Taylor Ford RN) sodium chloride flush 10 mL(Linked Group 1) 10 mL, intravenous, Every 8 hours PRN, line care, Starting on Fri04/29/25 at 1110, For 99 days, Preprocedure Linked Groups Order Group 1: Insert peripheral IV (CANCELED) Once, On Fri04/29/25 at 1111, For 1 occurrence, Preprocedure And Saline lock IV (CANCELED) Once, On Fri04/29/25 at 1111, For 1 occurrence, Preprocedure And sodium chloride flush 10 mLJump to med 10 mL, intravenous, Every 8 hours PRN, line care, Starting on Fri04/29/25 at 1110, For 99 days, Preprocedure documented in this encounter Care Teams Expeller Worker Relationship Specialty Start Date End Date Rojelio Donato MD [address] [place] [address] PCP - General Family Medicine 03/21/25 documented as of this encounter
--- OUTSIDE RECORDS SUMMARY | 2025-04-29 12:31 | XMS_ITS | Encounter Summary ---
Author Organization [facility] Address [address] [place] [address] Care Team Providers Care Wallpaper Hanger Helper Name Role Phone Rojelio Donato MD Primary Care Provider [phone] Reason for Visit * Auth/Cert (Routine) Specialty Diagnoses / Procedures Referred By Reg flores Referred To Contact Diagnoses Incisional hernia, without obstruction or gangrene Incisional hernia, without obstruction or gangrene [K43.2] Procedures NC RPR AA HERNIA 1ST < 3 CM REDUCIBLE ROBOTIC INCISIONAL HERNIA REPAIR WITH MESH Tk Herrera MD [address] [place] [phone] Phone: tel: fax: [facility] Main Operating Room [address] [place] [phone] Phone: tel: fax: Referral ID Status Reason Start Date Expiration Date Visits Re quested Visits Authorized [id number] 1 1 Encounter Details Date Type Department Care Team (Late st Contact Info) Description 04/29/2025 12:31 PM EDT Anesthesia Event [facility] Main Operating Room [address] [place] [phone] Naldo Zuniga MD [address] [place] [phone] Raymon Morales CAA [address] [place], [place] [id number] Anesthesia Record Procedure Summary Procedure Name Responsible Anesthesiologist Anesthesia Start Time Anesthesia Stop Time ROBOTIC INCISIONAL HERNIA REPAIR WITH MESH (Abdomen) Naldo Zuniga MD 04/29/25 1231 04/29/25 1626 Events Date Time Event Comment 04/29/2025 1224 1231 An Start 1234 An Start Data 1241 An Induction The patient was reevaluated immediately before moderate or deep sedation use and before anesthesia induction. 1244 An Intubation 1253 Anesthesia Ready 1311 Time Out Time out comple bereket (confirmed patient ID, surgeon, procedure, and operative site). 1613 An Extubation 1618 an stop data 1623 Handoff to Receiving I compl eted my handoff to the receiving clinician during which we: 1. Identified the patient 2. Identified the responsible provider 3. Reviewed the pertinent medical history 4. Discussed the surgical course 5. Reviewed intra-op anesthesia management and issues during anesthesia 6. Set expectations for post-procedure period 7. Allowed opportunity for questions and acknowledgement of understanding. 1626 An Stop Meds Name Total midazolam (Versed) 1mg/mL injection 2 mg fentaNYL (SUBLIMAZE) injection 300 mcg lidocaine (Xylocaine) 20 mg/ml injection 2 % 90 mg propofol 10 mg/mL 230 mg succinylcholine 20 mg/mL 160 mg rocuronium 50 mg dexAMETHasone (Decadron) 4 MG/ML injecti on 8 mg ondansetron 2 mg/mL 8 mg sugammadex 200 mg/2mL 300 mg ceFAZolin (Ancef) IV syringe 3 g 3 g vecuronium (Norcuron) 10mg injection 6 m g labetalol 5 mg/mL 15 mg magnesium sulfate IVPB 2 g 4 g lactated Ringer's infusion 1,503.77 mL HYDROmorphone (Dilaudid) injection 1 mg/ ml 1 mg lidocaine 4% external solution 5 mL * Agents Name O2 N2O Air Sevoflurane Inspired Sevoflurane N2O Inspired N2O Inspired O2 Setting * Blood No blood administrations on file. Lines, Drains, and Airways Type Details Placement Removal Open Wound (Any Pressure Injuries included) 04/29/25; Surgical; Laparoscopic; Abdomen; Upper 04/29/25 0000 by Lamont Price RN Peripheral IV Placement Date: 04/09 11/02; Placement Time: 1141; Catheter Size: 22 G; Orientation: Anterior, Right; Location: Forearm; Site Prep: Chlorhexidine ; Local Anesth: None; Technique: Anatomical landmarks; Insertion Attempts: 2; Difficult Venous Access? Yes (patient states her veins are deep, roll, and usually doppler is needed to find.); Patient Tolerance: Tolerated well; Removal Date: 04/29/25; Removal Time: 1759 04/29/25 1141 by Suzy Florez RN 04/29/25 1759 by Taylor Ford RN ETT Placement Date: 04/09 11/02; Placement Time: 1244 (created via procedure documentation); Mask Ventilation: 1; Technique: Video laryngoscopy; Type: ETT - single; Single Lumen Tube Size: 7.5 mm; Cuffed: Yes; Blade Size: 3; Location: Oral; Grade View: Grade IIa; Insertion Attempts: 1; Placement Verification: Auscultation, Capnometry; Removal Date: 04/29/25; Removal Time: 16104/29/25 1244 by Tra Ochoa MD 04/29/25 161 by Tra Ochoa MD documented in this encounter Social History Tobacco Use Types Packs/Day Years [...] AM EDT documented as of this encounter Procedure Notes * Tra Ochoa MD - 04/29/2025 1:06 PM EDTAssociated Order(s): Airway Airway Date/Time: 04/29/2025 12:44 PM Reason: elective Airway not difficult General Information and Staff Patient location during procedure: OR Anesthesiologist: Naldo Zuniga MD Resident/SECURITY SALES MANAGER/CAA: Tra Ochoa MD Performed: resident/SECURITY SALES MANAGER/CAA Patient Condition Indications for airway management: anesthesia Patient position: ramp Planned trial extubation Sedation level: deep Final Airway Details Preoxygenated: yes Final airway type: endotracheal airway Successful airway: ETT Cuffed: yes Successful intubation technique: video laryngoscopy Adjuncts used in placement: intubating stylet Endotracheal tube insertion site: oral Blade: Butler Blade size: #3 ETT size (mm): 7.5 Cormack-Lehane Classification: grade IIa - partial view of glottis Placement verified by: chest auscultation and capnometry Measured from: lips ETT to lips (cm): 22 Number of attempts at approach: 1 Number of other approaches attempted: 0 Cosigned by Naldo Zuniga MD at 04/29/2025 6:44 PM EDT documented in this encounter Plan of Treatment Upcoming Encounters Date Type Department Care Team (Late st Contact Info) Description 05/11/2025 2:00 PM EDT Office Visit [facility] Surgery Clinic [address] [place] [phone] Tk Herrera MD [address] [phone] documented as of this encounter Procedures Procedure Name Priority Date/Time Associated Diagnosis Comments NC AN ELECTIVE ENDOTRACHEAL AIRWAY Routine 04/29/2025 12:44 PM EDT documented in this encounter Results * NC AN ELECTIVE ENDOTRACHEAL AIRWAY (04/29/2025 12:44 PM EDT) Naldo Trujillo MD - 04/29/2025 12:44 PM EDT Naldo Zuniga MD 04/29/2025 6:44 PM Airway Date/Time: 04/29/2025 12:44 PM Reason: elective Airway not difficult General Information and Staff Patient location during procedure: OR Anesthesiologist: Naldo Zuniga MD Resident/SECURITY SALES MANAGER/CAA: Tra Ochoa MD Performed: resident/SECURITY SALES MANAGER/CAA Patient Condition Indications for airway management: anesthesia Patient position: ramp Planned trial extubation Sedation level: deep Final Airway Details Preoxygenated: yes Final airway type: endotracheal airway Successful airway: ETT Cuffed: yes Successful intubation technique: video laryngoscopy Adjuncts used in placement: intubating stylet Endotracheal tube insertion site: oral Blade: Butler Blade size: #3 ETT size (mm): 7.5 Cormack-Lehane Classification: grade IIa - partial view of glottis Placement verified by: chest auscultation and capnometry Measured from: lips ETT to lips (cm): 22 Number of attempts at approach: 1 Number of other approaches attempted: 0 us Naldo Zuniga MD ANESTHESIA ORDERABLES Final Result documented in this encounter Visit Diagnoses * Anesthesia Postprocedure Evaluation - Naldo Zuniga MD - 04/29/2025 6:42 PM EDT Patient: Connie Salcido Procedure Summary Date: 04/29/25 Room / Location: [facility] OPERATING ROOM 13 / [facility] Operating Room Anesthesia Start: 1231 Anesthesia Stop: 1626 Procedure: ROBOTIC INCISIONAL HERNIA REPAIR WITH MESH (Abdomen) Diagnosis: Incisional hernia, without obstruction or gangrene (Incisional hernia, without obstruction or gangrene [K43.2]) Surgeons: Tk Herrera MD Responsible Provider: Naldo Zuniga MD Anesthesia Type: general ASA Status: 4 Anesthesia Type: general Vitals Value Taken Time BP 160/77 04/29/25 17:25 Temp 36.4 ??C (97.5 ??F) 04/29/25 16:25 Pulse 100 04/29/25 17:30 Resp 18 04/29/25 17:30 SpO2 94 % 04/29/25 17:30 Vitals shown include unfiled device data. Anesthesia Post Evaluation Patient location during evaluation: PACU Patient participation: complete - patient participated Level of consciousness: awake and alert Pain management: adequate Airway patency: patent Cardiovascular status: acceptable Respiratory status: acceptable Hydration status: acceptable Comments: Being discharged to home, slight nausea but acceptable Patient is hemodynamically stable and is able to be discharged from PACU per anesthesia protocol. There were no known notable events for this encounter. * Anesthesia Preprocedure Evaluation - Naldo Zuniga MD - 04/29/2025 12:21 PM EDT Patient: Connie Salcido Procedure Information Date/Time: 04/29/25 1300 Procedure: ROBOTIC INCISIONAL HERNIA REPAIR WITH MESH Location: [facility] OPERATING ROOM 13 / [facility] Operating Room Surgeons: Tk Herrera MD Relevant Problems No relevant active problems Clinical information reviewed: Tobacco Allergies Meds Med Hx Surg Hx OB Status Fam Hx Soc Hx Physical Exam Airway Mallampati: II TM distance: >3 FB Neck ROM: full Cardiovascular - normal exam Dental - normal exam Pulmonary Breath sounds clear to auscultation Neurological Abdominal (+) obese Other findings: Denies hypertension HANH Has a right naris piercing and a left upper lip piercing Anesthesia Plan ASA 4 general (Scopolamine patch for PONV) The patient is a current smoker. (marijuana) Education provided regarding risk of obstructive sleep apnea. intravenous induction Postoperative pain plan includes opioids. Anesthetic plan and risks discussed with patient and spouse. Use of blood products discussed with patient who. Additional Equipment Requests documented in this encounter Administered Medications Inactive Administered Medications - up to 3 most recent administrations Medication Order MAR Action Action Date Dose Rate Site ceFAZolin (Ancef) IV syringe 3 g 3 g, intravenous, Once, On Fri04/29/25 at 1115, For 1 dose, Preprocedure, Suspected Indication (Select all that apply): Surgical ProphylaxisIndications:Incisional hernia, without obstruction or gangrene Given 04/29/2025 12:59 PM EDT 3 g dexAMETHasone (Decadron) injection intravenous, As needed, Starting on Fri04/29/25 at 1303, Anesthesia Intraprocedure Given 04/29/2025 1:03 PM EDT 8 mg fentaNYL (Sublimaze) injection intravenous, As needed, Starting on Fri04/29/25 at 1241, Anesthesia Intraprocedure Given 04/29/2025 2:19 PM EDT 50 mcg Given 04/29/2025 1:49 PM EDT 50 mcg Given 04/29/2025 1:26 PM EDT 50 mcg HYDROmorphone (Dilaudid) injection intravenous, As needed, Starting on Fri04/29/25 at 1538, Anesthesia Intraprocedure Given 04/29/2025 4:03 PM EDT 0 .3 mg Given 04/29/2025 3:52 PM EDT 0.3 mg Given 04/29/2025 3:38 PM EDT 0.4 mg labetalol (Normodyne, Trandate) injection intravenous, As needed, Starting on Fri04/29/25 at 1401, Anesthesia Intraprocedure Given 04/29/2025 2:22 PM EDT 5 mg Given 04/29/2025 2:09 PM EDT 5 mg Given 04/29/2025 2:01 PM EDT 5 mg lactated Ringer's infusion 30 mL/hr, intravenous, Continuous, Starting on Fri04/29/25 at 1115, For 99 days, Preprocedure, Indication: procedure Given 04/29/2025 4:04 PM EDT 1,500 mL New Bag 04/29/2025 12:31 PM EDT 1 mL/hr 1 mL/hr lidocaine (Xylocaine) 4 % (40 mg/mL) external solution transtracheal, As needed, Starting on Fri04/29/25 at 1547, Anesthesia Intraprocedure Given 04/29/2025 3:47 PM EDT 5 mL lidocaine HCl (Xylocaine) 20 mg/mL (2 %) injection intravenous, As needed, Starting on Fri04/29/25 at 1241, Anesthesia Intraprocedure Given 04/29/2025 12:41 PM EDT 90 mg magnesium sulfate in water IVPB intravenous, Administer over 1 Hours, As needed, Starting on Fri04/29/25 at 1401, Anesthesia Intraprocedure Given 04/29/2025 2:37 PM EDT 2 g Given 04/29/2025 2:01 PM EDT 2 g midazolam (Versed) injection intravenous, As needed, Starting on Fri04/29/25 at 1231, Anesthesia Intraprocedure Given 04/29/2025 12:31 PM EDT 2 mg ondansetron (Zofran) injection intravenous, As needed, Starting on Fri04/29/25 at 1542, Anesthesia Intraprocedure Given 04/29/2025 4:00 PM EDT 4 mg Given 04/29/2025 3:42 PM EDT 4 mg propofol (Diprivan) 10 mg/mL infusion intravenous, As needed, Starting on Fri04/29/25 at 1242, Anesthesia Intraprocedure Given 04/29/2025 3:58 PM EDT 3 0 mg Given 04/29/2025 12:42 PM EDT 200 mg rocuronium (ZeMuron) injection intravenous, As needed, Starting on Fri04/29/25 at 1300, Anesthesia Intraprocedure Given 04/29/2025 1:00 PM EDT 5 0 mg succinylcholine (Anectine) injection intravenous, As needed, Starting on Fri04/29/25 at 1242, Anesthesia Intraprocedure Given 04/29/2025 12:42 PM E DT 160 mg sugammadex (Bridion) injection intravenous, As needed, Starting on Fri04/29/25 at 1558, Anesthesia Intraprocedure Given 04/29/2025 3:58 PM EDT 3 00 mg vecuronium (Norcuron) injection intravenous, As needed, Starting on Fri04/29/25 at 1348, Anesthesia Intraprocedure Given 04/29/2025 3:06 PM EDT 2 mg Given 04/29/2025 1:48 PM EDT 4 mg documented in this encounter Care Teams Wallpaper Hanger Helper Relationship Specialty Start Date End Date Rojelio Donato MD [address] [facility] [place] [phone] PCP - General Family Medicine 03/21/25 documented as of this encounter
--- OUTSIDE RECORDS SUMMARY | 2025-04-29 13:00 | XMS_ITS | Encounter Summary ---
Author Organization [facility] Address [address] [place] [address] Care Team Providers Care Patient Transition Specialist Name Role Phone Rojelio Donato MD Primary Care Provider [phone] Reason for Visit * Auth/Cert (Routine) Specialty Diagnoses / Procedures Referred By Reg flores Referred To Contact Diagnoses Incisional hernia, without obstruction or gangrene Incisional hernia, without obstruction or gangrene [K43.2] Procedures SD RPR AA HERNIA 1ST < 3 CM REDUCIBLE ROBOTIC INCISIONAL HERNIA REPAIR WITH MESH Tk Herrera MD [address] [address] Phone: tel: fax: [facility] Main Operating Room [address] [place] [address] Phone: tel: fax: Referral ID Status Reason Start Date Expiration Date Visits Re quested Visits Authorized [id number] 1 1 Encounter Details Date Type Department Care Team (Late st Contact Info) Description 04/29/2025 1:00 PM EDT - 04/29/2025 5:00 PM EDT Surgery [facility] Main Operating Room [address] [place] [phone] Tk Herrera MD [address] [place] [phone] ROBOTIC INCISIONAL HERNIA REPAIR WITH MESH Social History Tobacco Use Types Packs/Day Years [...] Sign Reading Time Taken Comments Blood Pressure 139/96 04/29/2025 4:55 PM EDT Pulse 91 04/29/2025 4:55 PM EDT Temperature 36.4 C (97.5 F) 04/29/2025 4:25 PM EDT Respiratory Rate 21 04/29/2025 4:55 PM EDT Oxygen Saturation 99% 04/29/2025 4:55 PM EDT Inhaled Oxygen Concentration - - [...] sent through Care Everywhere. * Hernia Adult [id number]-Oyue (Algerian) * General Anesthesia Adult Care After (Algerian) documented in this encounter Medications at Time [...] Pope RN - 04/29/2025 6:29 PM EDT Icing Coater answered multiple questions regarding self care and activity. Pt verbalized understanding and reminded that a physician is available 31/03 if any farther questions. documented in this encounter Plan of Treatment Upcoming Encounters Date Type Department Care Team (Late st Contact Info) Description 05/11/2025 2:00 PM EDT Office Visit [facility] Surgery Clinic [address] [place] [address] Tk Herrera MD [address] [phone] documented as of this encounter Procedures Procedure Name Priority Date/Time Associated Diagnosis Comments POCT GLUCOSE METER UNSOLICITED RESULTS Routine 04/29/2025 11:36 AM EDT documented in this encounter Results * POCT glucose meter (04/29/2025 11:36 AM EDT) Glucose POC 92 70 - 105 mg/dL 04/29/2025 11:52 AM EDT [facility] Comment:ngrotha Blood Capillary blood specimen / Unknown 04/29/2025 11:36 AM EDT 04/29/2025 11:52 AM EDT Narrative [facility] - 04/29/2025 11:52 AM EDT Waived Testing in the ED is performed under the ED CLIA certificate #[id number]. us Tk Herrera MD LAB BLOOD ORDERABLES Final Resul t [facility] [address] [place], [place] [id number] documented in this encounter Visit Diagnoses Diagnosis Incisional hernia, without obstruction or gangrene- Primary Incisional hernia, without obstruction or gangrene Incisional hernia, without obstruction or gangrene documented in this encounter Admitting Diagnoses Diagnosis Incisional hernia, without obstruction or gangrene documented in this encounter Administered Medications Inactive Administered Medications - up to 3 most recent administrations Medication Order MAR Action Action Date Dose Rate Site BUPivacaine liposome (Exparel) 1.3 % (13.3 mg/mL) injection 266 mg 266 mg (20 mL), infiltration, Once, On Fri04/29/25 at 1215, For 1 dose, Intraprocedure, Indication: TAP block Given 04/29/2025 1:31 PM EDT 20 mL fentaNYL (Sublimaze) injection 50 mcg 50 mcg, [...] Preprocedure documented in this encounter Care Teams Patient Transition Specialist Relationship Specialty Start Date End Date Rojelio Donato MD [address] [facility] [place] [address] PCP - General Family Medicine 03/21/25 documented as of this encounter
[2025-05-01 13:25] VITALS: BP 153/93; PULSE 89; TEMP 36.9; O2SAT 99; BMI 55.0
--- OUTSIDE RECORDS SUMMARY | 2025-05-01 13:30 | XMS_ITS | Encounter Summary ---
Author Organization [facility] Address [address] [place] [address] Care Team Providers Care 3Rd Grade Teacher Name Role Phone Noah Walton DO Unavailable [phone] Source Comments In the event this information is protected by the Federal Confidentiality of Alcohol and Drug AbusePatient Records regulations: The Federal rules restrict any use of the information to criminally investigate or prosecute any alcohol or drug abuse patient.[facility] Encounter Details Date Type Department Care Team (Late st Contact Info) Description 05/17/2022 Patient Msg General Surgery [address] [place], [place] [phone] Provider, [facility] Nutrition Summary Social History Tobacco Use Types Packs/Day Years Used Date Smoking Tobacco: Never Smokeless Tobacco: Never Area Deprivation Index Answer Date Francois rded National Score (1-100), lower number is lower ri sk 88 04/26/2022 State Score (1-10), lower number is lower risk N ot on file 04/26/2022 Data from: https://www.neighborhoodatlas.medicine.[facility].edu/. Last address used for calculation [address] 04/26/2022 Comments No Sex and Gender [...] on filedocumented in this encounter Care Teams 3Rd Grade Teacher Relationship Specialty Start Date End Date Noah Walton DO [address] [place] [address] Referring Micro Computer Specialist 04/23/22 documented as of this encounter
--- OUTSIDE RECORDS SUMMARY | 2025-05-01 13:30 | XMS_ITS | Encounter Summary ---
Author Organization [facility] Address [address] [place] [address] Care Team Providers Care Conventional Underwriter Name Role Phone Rojelio Donato MD Primary Care Provider [phone] Encounter Details Date Type Department Care Team (Latest Contact Info) Description 04/29/2025 Travel Social History Tobacco Use Types Packs/Day Years [...] Description 05/11/2025 2:00 PM EDT Office Visit [facility] Surgery Clinic [address] [place] [address] Tk Herrera MD [address] [facility] [place] [address] documented as of this encounter Visit Diagnoses Not on filedocumented in this encounter Care Teams Conventional Underwriter Relationship Specialty Start Date End Date Rojelio Donato MD [address] [facility] [place] [address] PCP - General Family Medicine 03/21/25 documented as of this encounter
--- OUTSIDE RECORDS SUMMARY | 2025-05-01 13:30 | XMS_ITS | Encounter Summary ---
Author Organization [facility] Address [address] [place] [place] [address] Care Team Providers Care Entry Level Electrical Engineer Name Role Phone Rojelio Donato MD Primary Care Provider [phone] Encounter Details Date Type Department Care Team (Late Contact Info) Description 01/24/2023 Abstract [facility] [address] [place] [address] [place] [address] Julieta Garcia PA [address] [place] [address] Dr [address], [place] [address] Social History Tobacco Use Types Packs/Day Years [...] Description 12/28/2025 4:00 PM EDT Office Visit [facility] [address] [place] [address] Noah Walton DO [address] [place] [address] documented as of this encounter Visit Diagnoses Not on filedocumented in this encounter Care Teams Entry Level Electrical Engineer Relationship Specialty Start Date End Date Rojelio Donato MD PCP - General Family Medicine 01/27/23 documented as of this encounter
--- OUTSIDE RECORDS SUMMARY | 2025-05-01 13:30 | XMS_ITS | Clinical Summary ---
Author Organization [facility] Address [address] [place] [address] Care Team Providers Care Cyber Security Engineer Name Role Phone Rojelio Donato MD [...] per week 12 patch 3 12/21/2024 Active Family History Medical History Relation Name Comments [...] 12/28/2025 4:00 PM EDT Office Visit [facility] [address] [facility] [place] [phone] Noah Walton DO [address] [place], [place] [phone] Health Maintenance Due Date Last Done Comments Influenza Vaccine (#1) 2025 2, 06/27/2009, 10/18/2008, Additional history exists Cervical Cancer Screening 12/21/2029 HPV/Cotest 12/21/2029 Pap Smear 12/21/2029 12/21/2024, 12/17/2022 Procedures Procedure Name Priority Date/Time Associated Diagnosis Comments PAP SMEAR Routine 12/21/2024 12:00 AM EDT from Last 3 Months or Most Recently Relevant to Health Maintenance Results * Pap Smear (12/21/2024 12:00 AM EDT) Swab Cervical swab / Unknown us Noah Walton DO LAB CYTOLOGY ORDERABLES Final Re sult EXTERNAL LAB from Last 3 Months or Most Recently Relevant to Health Maintenance Insurance [employer] Care Teams Cyber Security Engineer Relationship Specialty Start Date End Date Rojelio Donato MD PCP - General Family Medicine 01/27/23
--- OUTSIDE RECORDS SUMMARY | 2025-05-01 13:30 | XMS_ITS | Encounter Summary ---
Author Organization [facility] Address [address] [place] [address] Care Team Providers Care Rental Car Ferry Driver Name Role Phone Rojelio Donato MD Primary Care Provider [phone] Encounter Details Date Type Department Care Team (Late Contact Info) Description 03/20/2023 Abstract [facility] [address] [place], [place] [address] [place] [address] Noah Walton DO [address] [place], [place] [address] [place], [place] [address] Social History Tobacco Use Types Packs/Day Years [...] PM EDT Office Visit [facility] [address] [facility] [place] [address] Noah Walton DO [facility] [address] [place], [facility] documented as of this encounter Visit Diagnoses Not on filedocumented in this encounter Care Teams Rental Car Ferry Driver Relationship Specialty Start Date End Date Rojelio Donato MD PCP - General Family Medicine 01/27/23 documented as of this encounter
--- OUTSIDE RECORDS SUMMARY | 2025-05-01 13:30 | XMS_ITS | Encounter Summary ---
Author Organization [facility] Address [address] [place] [id number] Care Team Providers Care Roll Picker Name Role Phone Noah Walton DO Unavailable [phone] Source Comments In the event this information is protected by the Federal Confidentiality of Alcohol and Drug AbusePatient Records regulations: The Federal rules restrict any use of the information to criminally investigate or prosecute any alcohol or drug abuse patient.[facility] Encounter Details Date Type Department Care Team (Late st Contact Info) Description 05/21/2022 Patient Msg Family Medicine [address] [place], [place] [id number] Provider, [facility] Appointments Needed Social History Tobacco Use Types Packs/Day Years Used Date Smoking Tobacco: Never Smokeless Tobacco: Never Area Deprivation Index Answer Date Francois rded National Score (1-100), lower number is lower ri sk 88 04/26/2022 State Score (1-10), lower number is lower risk N ot on file 04/26/2022 Data from: https://www.neighborhoodatlas.medicine.[facility].edu/. Last address used for calculation [address] [...] on filedocumented in this encounter Care Teams Roll Picker Relationship Specialty [place] [address] [place] [id number] Referring Cuff Stitcher 04/23/22 documented as of this encounter
--- OUTSIDE RECORDS SUMMARY | 2025-05-01 13:30 | XMS_ITS | Encounter Summary ---
Author Organization [facility] Address [address] [place] [address] Care Team Providers Care Staff Rn Name Role Phone Rojelio Donato MD Primary Care Provider [phone] Encounter Details Date Type Department Care Team (Late Contact Info) Description 12/30/2024 Orders Only [facility] [address] [place] [address] [place] [phone] Nena Wilson MA [address] [address] Social History Tobacco Use Types Packs/Day Years [...] 4:00 PM EDT Office Visit [facility] [address] [place] [address] Noah Walton DO [address] [place], [place] [id number] documented as of this encounter Procedures Procedure Name Priority Date/Time Associated Diagnosis Comments PAP SMEAR Routine 12/21/2024 12:00 AM EDT documented in this encounter Results * Pap Smear (12/21/2024 12:00 AM EDT) Swab Cervical swab / Unknown us Noah Walton DO LAB CYTOLOGY ORDERABLES Final Re sult EXTERNAL LAB documented in this encounter Visit Diagnoses Not on filedocumented in this encounter Care Teams Staff Rn Relationship Specialty Start Date End Date Rojelio Donato MD PCP - General Family Medicine 01/27/23 documented as of this encounter
--- OUTSIDE RECORDS SUMMARY | 2025-05-01 13:30 | XMS_ITS | CCD ---
Author Organization [facility] Care Team Providers Care Claim Inspector Name Role Phone Noah Walton DO Unavailable [phone] SEAMUS Chaves, DR PADILLA Primary Care Unavailable [...] EDGAR Admitting Unavailable NISREEN DUNNE Consulting Unavailable LAVONNEY ., DR PADILLA Consulting Unavailable HOY ., [...] Unavailable WEST, DR AYAD Matamoros Consulting Unavailable ISH EDGAR Consulting Unavailable CHARUNATALIE BERRY Consulting Unavailable MERLE [...] Unavailable Valerie Donato MD Primary Care Provider [phone] NOAH WALTON Attending Unavailable NOAH WALTON Attending Unavailable ANNETTE TANNERIN Referring Unavailable ANNETTE TANNERIN Referring Unavailable DELFINA TANNER Attending Unavailable ANNETTE TANNERIN Referring Unavailable VALERIE DONATO Primary Care Unavailable Allergies Allergy Classification Reported Allergen(s) Allergy Type Date of Onset Reaction(s) Facility (4 sources) meloxicam; Translations: [MELOXICAM] Drug Allergy 0 Other: See Comments [facility] (2 sources) Acetaminophen / HYDROcodone; Translations: [[place]] Drug Allergy [facility] (2 sources) HYDROmorphone; Translations: [Dilaudid] Drug Allergy [facility] (1 source) meloxicam Drug Allergy [facility] (7 sources) meloxicam Drug Allergy 2 Headache [facility] Work Phone: (4 sources) HYDROcodone; Translations: [HYDROCODONE] Drug Allergy 6 Other [facility] Healthcare (1 source) ALLERGIES NOT ON FILE; Translations: [ALLERGIES NOT ON FILE] Propensity to adverse reactions (disorder) [facility] Repository Medications Current Medications Medication Drug Class(es) Dates Sig (Normalized) Sig (Original) 168 hr estradiol 0.81769 mg/hr transdermal system (8 sources) Estrogen Start: 12-21-2024 End: 12-21-2025 estradiol (Climara) 0.075 MG/24HR Indications: Status post hysterectomy , Vaginal dryness Place 1 patch over 7 days on the skin 1 (one) time per week 12 patch 3 12/21/2024 12/21/2025 Active Start: 09-13-2024 End: 12-12-2024 estradiol (Climara) 0.05 MG/ 24HR Indications: Sweating abnormality , Status post hysterectomy , Vaginal dryness Place 1 patch over 7 days on the skin 1 (one) time per week 12 patch 3 09/13/2024 Active metroNIDAZOLE 500 mg oral tablet (3 sources) Nitroimidazole Antimicrobial Start: 12-21-2024 End: 12-28-2024 take 1 tablet by mouth in the morning metroNIDAZOLE (Flagyl) 500 MG tablet Indications: BV (bacterial vaginosis) Take 1 tablet (500 mg) by mouth in the morning and 1 tablet (500 mg) before bedtime. Do all this for 7 days. 14 tablet 12/21/2024 12/28/2024 Active phentermine hydrochloride 37.5 mg oral tablet (8 sources) Sympathomimetic Amine Anorectic Start: 08-13-2024 take [...] mg / caffeine 40 mg oral capsule (9 sources) Barbiturate, Central Nervous System Stimulant, Methylxanthine [...] by viri every 6 hours as needed. [id number] 200 actuat albuterol 0.09 mg/actuat metered dose inhaler (3 sources) beta2-Adrenergic Agonist Start: End: take 2 puff(s) by inhalation every six hours Ventolin HFA 108 (90 Base) MCG/ACT inhaler Inhale 2 puffs every 6 (six) hours if needed. 12/30/2022 09/13/2024 Discontinued cyclobenzaprine hydrochloride 10 mg oral tablet (3 sources) Muscle Relaxant Start: 023 End: take 1 tablet by mouth three times daily as needed for muscle spasms cyclobenzaprine (Flexeril) 10 MG tablet TAKE 1 TABLET BY MOUTH THREE TIMES DAILY NEEDED FOR MUSCLE SPASMS MUST LAST 30 DAYS 02/19/2023 09/13/2024 Discontinued fluconazole 150 mg oral tablet (2 sources) Azole Antifungal Start: 025 End: fluconazole (Diflucan) 150 MG tablet Indications: Yeast infection of the vagina Take 1 tablet (150 mg) by mouth 1 (one) time for 1 dose Repeat in 7 days if symptoms persist. 2 tablet 12/21/2024 12/21/2024 FLUoxetine 10 mg oral capsule (2 sources) [...] Problem Classification Problem Date Documented Date Episodic/Chronic Abdominal hernia (3 sources) 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; Translations: [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] Onset: 03-30-2025 Episodic Administrative/social admission (1 source) Patient encounter status; Translations: [Dietary counseling and surveillance] Episodic Asthma (1 source) Unspecified asthma, uncomplicated; Translations: [UNSPECIFIED ASTHMA UNCOMPLICATED] Onset: 12-31-2022 Chronic Coagulation and hemorrhagic disorders (2 sources) Spontaneous ecchymoses; Translations: [Spontaneous ecchymoses] Onset: 03-30-2025 Episodic Conditions associated with dizziness or vertigo (1 source) Dizziness and giddiness; Translations: [DIZZINESS AND GIDDINESS] Onset: 10-17-2022 Episodic Headache; including migraine (4 sources) Headache; including migraine; Translations: [HEADACHE UNSPECIFIED] Onset: 10-14-2022 Immunizations and screening for infectious disease (1 source) Encounter for screening for human papillomavirus (HPV); Translations: [ENC SCREENING HUMAN PAPILLOMAVIRUS] Onset: 12-22-2022 Episodic Inflammatory diseases of female pelvic organs (2 sources) Bacterial vaginosis; Translations: [Acute vaginitis] 12-21-2024 Episodic Mycoses (2 sources) Candidiasis of vagina; Translations: [Yeast infection of the vagina] 12-21-2024 Episodic Nausea and vomiting (5 sources) Nausea; Translations: [Nausea with vomiting, unspecified] Onset: 09-26-2022 Episodic Other aftercare (1 source) Other shelter (current) drug therapy; Translations: [OTH INTERMEDIATE CURRENT DRUG THERAPY] Onset: 12-31-2022 Episodic Other congenital anomalies (4 sources) Other congenital malformations of ribs; Translations: [OTHER CONGENITAL MALFORMATIONS RIBS] Onset: 11-13-2022 Chronic Other female genital disorders (4 sources) Vaginal dryness; Translations: [Other specified noninflammatory [...] CERV] Onset: 12-17-2022 Episodic Other skin disorders (4 sources) Disorder of sweat gland; Translations: [Eccrine [...] Test Name Value Interpretation Reference Range Facility BASIC METABOLIC PANELon 08-0 Anion gap [Moles/Vol] 8 mmol/L Normal 5-15 [facility] Comment on above: Performed By: #### B MP #### [facility] ([facility]) [address] [place] [address] VIR Calcium [Mass/Vol] 8.7 mg/dL Normal 8.5-10.5 [facility] Comment on above: Performed By: #### B MP #### [facility] ([facility]) [address] [place] [address] VIR Chloride [Moles/Vol] 106 mmol/L Normal 98-109 [facility] Comment on above: Performed By: #### B MP #### [facility] ([facility]) [address] [place] [address] VIR CO2 [Moles/Vol] 27 mmol/L Normal 22-32 [facility] Comment on above: Performed By: #### B MP #### [facility] ([facility]) [address] [place] [address] VIR Creatinine [Mass/Vol] 0.69 mg/dL Normal 0.40-1.00 [facility] Comment on above: Result Comment: METH OD TRACEABLE TO IDMS STANDARD Performed By: #### B MP #### [facility] ([facility]) [address] [place] [address] VIR EGFR (CKD-EPI) NON-RACE DEPENDENT >^90 Normal >=60 [facility] Comment on above: Result Comment: Repo rted eGFR is based on the CKD-EPI 2020 equation that does not use a race coefficient. Performed By: #### B MP #### [facility] ([facility]) [address] [place] [address] VIR Glucose [Mass/Vol] 91 mg/dL Normal 65-99 [facility] Comment on above: Performed By: #### B MP #### [facility] ([facility]) [address] [place] [address] VIR Potassium [Moles/Vol] 3.7 mmol/L Normal 3.5-5.0 [facility] Comment on above: Performed By: #### B MP #### [facility] ([facility]) [address] [place] [address] VIR Sodium [Moles/Vol] 141 mmol/L Normal 134-146 [facility] Comment on above: Performed By: #### B MP #### [facility] ([facility]) [address] [place] [address] VIR Urea nitrogen [Mass/Vol] 8 mg/dL Normal 5-23 [facility] Comment on above: Performed By: #### B MP #### [facility] ([facility]) [address] [place] [address] VIR CBC WITH AUTO DIFFERENTIALon 04-11-2025 BASOPHILS ABSOLUTE COUNT (10*3/UL) BY AUTOMATED COUNT 0.0 10*3/uL Normal 0.0-0.2 [facility] Comment on above: Performed By: #### C BCA #### [facility] ([facility]) [address] [place] [address] VIR BASOPHILS RELATIVE PERCENT BY AUTOMATED COUNT 0.6 % Normal [facility] Comment on above: Performed By: #### C BCA #### [facility] ([facility]) [address] [place] [address] VIR CELLAVISION DIFFERENTIAL TYPE AUTOMATED DIFFERENTIAL Normal [facility] Comment on above: Performed By: #### C BCA #### [facility] ([facility]) [address] [place] [address] VIR Eosinophils (Bld) [#/Vol] 0.0 10*3/uL Normal 0.0-0.4 [facility] Comment on above: Performed By: #### C BCA #### [facility] ([facility]) [address] [place] [address] VIR EOSINOPHILS RELATIVE PERCENT BY AUTOMATED COUNT 0.3 % Normal [facility] Comment on above: Performed By: #### C BCA #### [facility] ([facility]) [address] [place] [address] VIR Erythrocyte distribution width (RBC) [Ratio] 13.5 % Normal 11.5-15 [facility] Comment on above: Performed By: #### C BCA #### [facility] ([facility]) [address] [place] [address] VIR Hematocrit (Bld) [Volume fraction] 42.3 % Normal 35-47 [facility] Comment on above: Performed By: #### C BCA #### [facility] ([facility]) [address] [place] [address] VIR Hemoglobin (Bld) [Mass/Vol] 14.0 g/dL Normal 11.7-15.5 [facility] Comment on above: Performed By: #### C BCA #### [facility] ([facility]) [address] [facility] [address] [place] [address] VIR LYMPHOCYTES ABSOLUTE COUNT (10*3/UL) BY AUTOMATED COUNT 2.6 10*3/uL Normal 1.0-3.5 [facility] Comment on above: Performed By: #### C BCA #### [facility] ([facility]) [address] [place] [address] VIR LYMPHOCYTES RELATIVE PERCENT BY AUTOMATED COUNT 33.3 % Normal [facility] Comment on above: Performed By: #### C BCA #### [facility] ([facility]) [address] [place] [address] VIR MCH (RBC) [Entitic mass] 29.9 pg Normal 27-34 [facility] Comment on above: Performed By: #### C BCA #### [facility] ([facility]) [address] [place] [address] VIR MCHC (RBC) [Mass/Vol] 33.1 g/dL Normal 32-36 [facility] Comment on above: Performed By: #### C BCA #### [facility] ([facility]) [address] [place] [address] VIR MCV (RBC) [Entitic vol] 91 fL Normal 80-100 [facility] Comment on above: Performed By: #### C BCA #### [facility] ([facility]) [address] [place] [address] VIR MONOCYTES ABSOLUTE COUNT (10*3/UL) BY AUTOMATED COUNT 0.2 10*3/uL Normal 0.0-0.9 [facility] Comment on above: Performed By: #### C BCA #### [facility] ([facility]) [address] [place] [address] VIR MONOCYTES RELATIVE PERCENT BY AUTOMATED COUNT 3.1 % Normal [facility] Comment on above: Performed By: #### C BCA #### [facility] ([facility]) [address] [place] [address] VIR NEUTROPHILS ABSOLUTE COUNT BY AUTOMATED COUNT 4.9 10*3/uL Normal 1.5-6.6 [facility] Comment on above: Performed By: #### C BCA #### [facility] ([facility]) [address] [place] [address] VIR NEUTROPHILS RELATIVE PERCENT BY AUTOMATED COUNT 62.7 % Normal [facility] Comment on above: Performed By: #### C BCA #### [facility] ([facility]) [address] [place] [address] VIR Platelet mean volume (Bld) [Entitic vol] 8.5 fL Normal 7-12 [facility] Comment on above: Performed By: #### C BCA #### [facility] ([facility]) [address] [place] [address] VIR Platelets (Bld) [#/Vol] 250 10*3/uL Normal 150-450 [facility] Comment on above: Performed By: #### C BCA #### [facility] ([facility]) [address] [place] [address] VIR RBC COUNT 4.67 X10E12/L Normal 3.8-5.2 [facility] Comment on above: Performed By: #### C BCA #### [facility] ([facility]) [address] [place] [address] VIR WBC (Bld) [#/Vol] 7.8 10*3/uL Normal 4-11 [facility] Comment on above: Performed By: #### C BCA #### [facility] ([facility]) [address] [place] [address] VIR MRSA PCR NASAL SWABon 2024 MRSA PCR NASAL SWAB Negative Normal Negative [facility] Comment on above: Performed By: #### M RSPCR #### [facility] ([facility]) [address] [place] [address] VIR PROTIME AND INRon 04-11-2025 INR 1.0 Normal 0.9-1.2 [facility] Comment on above: Performed By: #### P INR #### [facility] ([facility]) [address] [place] [address] VIR PT Coag (PPP) [Time] 11.7 s Normal 9.8-13.2 [facility] Comment on above: Performed By: #### P INR #### [facility] ([facility]) [address] [place] [address] VIR 36on 04-01-2025 36 Called patient and surgery scheduled. [facility] 36on 03-31-2025 36 Pt called stating that someone was to call her to schedule surgery. I advised pt that staff is in clinic at the moment, but will be reaching out to her to schedule. Pt verbalized understanding. [facility] Telephoneon 03-31-2025 Telephone [phone] Gricelda Salcido i 1995 F Date Provider Department Center 03/31/2025 SAUNDRA LEAHY [facility] SURG Second Fl No family history on file [facility] 03-30-2025 29 Addended by: LIBBY OCONNELL on: 04/01/2025 11:06 AM Modules accepted: Orders Normal [facility] Consulton 03-30-2025 Consult [phone] Gricelda Salcido i 1995 F Date Provider Department Center 03/30/2025 DELFINA WILSON [facility] SURG Second Fl No family history on file Level of Service:42562 ND OFFICE/OUTPATIENT NEW MODERATE MDM 45 MINUTES Reason for Visit and Comments: Consult [484] - Patient here for a consult of a ventral hernia. Normal [facility] IGP,APTIMA HPV,AGE GDLNon AGE GDLN ACOG TESTING Note . [facility] Comment on above: TESTS RESULT FLAG UN ITS REF RANGE LAB Clinician Provided Cytology Information Source.............Vagina No. of containers..01 ThinPrep Vial Age Algo ACOG Ofe... 30-65 01 FLAG LEGEND: L-Low Normal,H-High Normal,LL-Alert Low,HH-Alert High <-Panic Low,>-Panic High,A-Abnormal,AA-Critical Abnormal Performed at: 01 =G [facility] [id number] Martha Chen MD, HPV APTIMA Negative Negative [facility] Comment on above: This nucleic acid am plification test detects fourteen high- risk HPV types (16,18,31,33,35,39,45,51,52,56,58,59,66,68) without differentiation. Performed at: =G - [facility] [id number] Financial Advisor Trainee: Martha Chen MD, Phone: [phone] Performed at: [facility] [id number] Financial Advisor Trainee: Martha Chen MD, Phone: [phone] IGP, APTIMA HPV, RFX 16/18,[address] [facility] Comment on above: TESTS RESULT FLAG UN ITS REF RANGE LAB DIAGNOSIS: 02 NEGATIVE FOR INTRAEPITHELIAL LESION OR MALIGNANCY. Specimen adequacy: 02 Satisfactory for evaluation. Performed by: 02 Jessica Bo, First Line Supervisor ([facility]) . 02 Note: Note 02 The Pap [...] <-Panic Low,>-Panic High,A-Abnormal,AA-Critical Abnormal Performed at: 02 [facility] [address] [place], [place] [address] Martha Chen MD, [facility] Patient Letter FTon 2023 Patient [place] [facility]24 CONNIE SALCIDO [address] [place] [address] : 1995 Dear Connie, You missed your [...] any future cancellations. Sincerely, [facility] [address], [place] [address] [facility] ED Note-Physicianon 08-20-20 ED Note-Physician [id number]# 1.00TIFF [facility] Screenson 08-20-2023 Screens [id number]#1 .00TIFF [facility] Ambulatory Visit Summaryon 1 10-20-2022 Ambulatory Visit Summary CONNIE SALCIDO :1995 Visit Date:08/19/2023 Ambulatory Visit Instructions Your Diagnosis Kidney stones Asymptomatic microscopic hematuria Mixed incontinence OAB (overactive bladder) Tests Performed Urnls Dip Stick Auto w/o Microscopy POC [id number] Your Care Team Attending Physician - Oumou LI, ADÁN, Carmen X Primary Care Physician - Hoy MD, Valerie This Is Your Medications List APAP/butalbital/caffe ine (APAP/butalbital/caff eine 325 mg-50 mg-40 mg oral capsule) citalopram [...] What to do next Scheduled Follow-Up Appointments Friday. 2023 2:30 PM EST With: KERA COONEY PA-C Where: [facility] Patient Educationon 08-19-20 Patient Education Obstetrics and [...] health care provider. General instructions ? Take qmqw-ttn-qtqutvz and prescription medicines only as told by [...] monitor yo (more content not included)... Normal [facility] Office/Clinic Noteon 08-19-2023 Urology Office/Clinic Note Chief Complaint 1yr HPI Staff PRW pt 1yr KUB *pt did not get KUB done. Was not aware one was ordered. However did get CT done @ [facility] ER 08/14/23 DX: Microscopic Hematuria, Hx of Kidney Stones, Nocturia, Stress Incontinence & Frequency Last Stone Procedure 01/25/21 ([facility]) Denies flank pain. Has been lower abdominal discomfort for the past week. Did go to [facility] ER 08/14/23. frequency during the day, [...] that she is aware of. Seen at [facility] ER for RLQ abdominal discomfort 08/14/23 [...] day(s), # 90 tab(s), Refills(s) 0, Pharmacy: [email or web address], 154, cm, 08/19/23 15:05:00 EST, Height/Length Dosing, 129.5, kg, 08/19/23 15:05:00 EST, Weight Dosing Follow-up No qualifying data available Patient Education Kidney Stones, Oxuo-es-Uwgf Hematuria, Adult Overactive Bladder, Adult Problem List/Past [...] Birthcontrol implant, Caesarean section, Tubal ligation. Medications APAP/butalbital/caffe ine 325 mg-50 mg-40 mg oral capsule, 1 [...] Oral, Daily Allergies Dilaudid (Nausea and vomiting) [place] (Nausea and vomiting) Social History Alcohol - Denies Alcohol Use, 01/19/2021 Substance Abuse Tobacco Never (less than 100 in lifetime) Tobacco Use:. Never Smokeless Tobacco Use:. Household tobacco concerns: No. Yes, 08/19/2023 Family History Heart disease: Mother. Kidney stone: Mother. Migraine: Mother. Immunizations Vaccine Date Status influenza virus vaccine, inactivated 06/18/2022 Recorded SARS-CoV-2 (COVID-19) [id number] 06/18/2022 Recorded SARSCoV2 mRNA(zzugxnndw-pswl-p ucros) vac 12/03/2021 Recorded SARSCoV2 mRNA(uyxbjvfou-ubef-c ucros) vac 10/25/2021 R (more content not included)... Normal [facility] Comment on above: Result Comment: Elec tronically Signed By: ADÁN Coello APRN, [place] X\.br\Date and Time Signed: 08/19/23 16:30 EST PAP ACOG PANEL 2: 21 to 29on 12-24-2022 . . Normal [facility] Comment on above: Performed By: #### L ACT #### [facility] [address] [place] [address] Dr. Tho Hardy Age Gdln ACOG Testing 19- [facility] Comment on above: Performed By: #### L ACT #### [facility] [address] [address] [address] Tho Hardy DIAGNOSIS: Comment [facility] Comment on above: Result Comment: NEGA TIVE FOR INTRAEPITHELIAL LESION OR MALIGNANCY. Performed By: #### L ACT #### [facility] [address] [address] [address] Tho Hardy Methodology: Comment [facility] Comment on above: Result Comment: This liquid based ThinPrep(R) pap test was screened with the use of an image guided system. Performed By: #### L ACT #### [facility] [address] [address] [address] Tho Hardy Note: Comment [facility] Comment on above: Result Comment: The Pap smear is a screening test designed to aid in the detection of premalignant and malignant conditions of the uterine cervix. It is not a diagnostic procedure and should not be used as the sole means of detecting cervical cancer. Both false-positive and false-negative reports do occur. . Performed By: #### L ACT #### [facility] [address] [address] [address] Tho Hardy Performed by: Comment Normal [facility] Comment on above: Result Comment: Julieta Choudhary, First Line Supervisor (ASCP) Performed By: #### L ACT #### [facility] [address] [address] [address] Tho Hardy Reflex Criteria: Comment Normal [facility] Comment on above: Result Comment: The HPV DNA reflex criteria were not met with this specimen result therefore, no HPV testing was performed. . Performed By: #### L ACT #### [facility] [address] [place], [place] [address] Dr. Tho Hardy Specimen adequacy: Comment Normal [facility] Comment on above: Result Comment: Sati sfactory for evaluation. Endocervical and/or squamous metaplastic cells (endocervical component) are present. Performed By: #### L ACT #### [facility] [address] [address] [address] Tho Hardy XR RIBS LT PA [...] AYAD MALCOLM Date: 2022-11-14 07:04 Normal [facility] XR ANKLE LT MIN 3 Von 2022 XR ANKLE LT MIN 3 V EXAM: XR ANKLE LT VT N 3 V HISTORY: Pain of left [...] NISREEN DUNNE Date: 2022 15:34 Normal [facility] CBC AUTO DIFFon 10-14-2022 BASO # 0.0 103/ul Normal 0.0-0.1 [facility] Comment on above: Performed By: #### C BC #### [facility] [address] [address] [address] Tho Hardy Basophils/100 WBC (Bld) 0.3 % Normal 0.2-2.0 [facility] Comment on above: Performed By: #### C BC #### [facility] [address] [place] [address] Dr. Tho Hardy EO # 0.1 103/ul Normal 0.0-0.7 [facility] Comment on above: Performed By: #### C BC #### [facility] [address] [place] [address] Dr. Tho Hardy Eosinophils/100 WBC (Bld) 1.5 % Normal 0.9-7.0 [facility] Comment on above: Performed By: #### C BC #### [facility] [address] [place] [address] Dr. Tho Hardy Erythrocyte distribution width (RBC) [Ratio] 12.7 % Normal 11.0-15.0 [facility] Comment on above: Performed By: #### C BC #### [facility] [address] [place] [address] Dr. Tho Hardy Hematocrit (Bld) [Volume fraction] 44.9 % Normal 36.0-48.0 [facility] Comment on above: Performed By: #### C BC #### [facility] [address] [place] [address] Dr. Tho Hardy Hemoglobin (Bld) [Mass/Vol] 14.3 g/dL Normal 12.0-16.0 [facility] Comment on above: Performed By: #### C BC #### [facility] [address] [place] [address] Dr. Tho Hardy IG # 0.02 10e3/ul Normal 0.00-0.03 [facility] Comment on above: Performed By: #### C BC #### [facility] [address] [place] [address] Dr. Tho Hardy IG % 0.3 % Normal 0.0-0.5 [facility] Comment on above: Performed By: #### C BC #### [facility] [address] [place] [address] Dr. Tho Hardy LYMPH # 1.9 103/ul Normal 1.2-3.8 [facility] Comment on above: Performed By: #### C BC #### [facility] [address] [place] [address] Dr. Tho Hardy Lymphocytes/100 WBC (Bld) 27.7 % Normal 20.5-60.0 [facility] Comment on above: Performed By: #### C BC #### [facility] [address] [place] [address] Dr. Tho Hardy MANUAL DIFF REQ NO Normal [facility] Comment on above: Performed By: #### C BC #### [facility] [address] [place] [address] Dr. Tho Hardy MCH (RBC) [Entitic mass] 30.3 pg Normal 26.7-34.0 [facility] Comment on above: Performed By: #### C BC #### [facility] [address] [place] [address] Dr. Tho Hardy MCHC (RBC) [Mass/Vol] 31.8 g/dL Normal 29.9-35.2 [facility] Comment on above: Performed By: #### C BC #### [facility] [address] [place] [address] Dr. Tho Hardy MCV (RBC) [Entitic vol] 95.1 fL Normal 81.0-99.0 [facility] Comment on above: Performed By: #### C BC #### [facility] [address] [place] [address] Dr. Tho Hardy MONO # 0.5 103/ul Normal 0.3-0.8 [facility] Comment on above: Performed By: #### C BC #### [facility] [address] [place] [address] Dr. Tho Hardy Monocytes/100 WBC (Bld) 7.6 % Normal 1.7-12.0 [facility] Comment on above: Performed By: #### C BC #### [facility] [address] [place] [address] Dr. Tho aHrdy NEUT # 4.2 103/ul Normal 1.4-6.5 [facility] Comment on above: Performed By: #### C BC #### [facility] [address] [place] [address] Dr. Tho Hardy Neutrophils/100 WBC (Bld) 62.6 % Normal 43.0-75.0 [facility] Comment on above: Performed By: #### C BC #### [facility] [address] [place] [address] Dr. Tho Hardy Platelet mean volume (Bld) [Entitic vol] 10.0 fL Normal 9.5-13.5 [facility] Comment on above: Performed By: #### C BC #### [facility] [address] [place] [address] Dr. Tho Hardy PLT 242 103/ul Normal 150-450 [facility] Comment on above: Performed By: #### C BC #### [facility] [address] [place] [address] Dr. Tho Hardy RBC 4.72 106/ul Normal 4.20-5.40 [facility] Comment on above: Performed By: #### C BC #### [facility] [address] [place] [address] Dr. Tho Hardy WBC 6.7 103/ul Normal 4.0-11.0 [facility] Comment on above: Performed By: #### C BC #### [facility] [address] [place] [address] Dr. Tho Hardy ER URINE PROFILEon 3 Bilirubin Ql (U) Negative Normal NEGATIVE [facility] Comment on above: Performed By: #### L ACT #### [facility] [address] [place] [address] Dr. Tho Hardy Clarity (U) CLEAR Normal CLEAR [facility] Comment on above: Performed By: #### L ACT #### [facility] [address] [place] [address] Dr. Tho Hardy Color (U) YELLOW Normal YELLOW [facility] Comment on above: Performed By: #### L ACT #### [facility] [address] [place] [address] Dr. Tho Hardy ERUAHD A micrscopic examination will be performed if indicated. Normal [facility] Comment on above: Performed By: #### L ACT #### [facility] [address] [place] [address] Dr. Tho Hardy Glucose Ql (U) Negative Normal NEGATIVE [facility] Comment on above: Performed By: #### L ACT #### [facility] [address] [place] [address] Dr. Tho Hardy Hemoglobin Ql (U) MODERATE Abnormal NEGATIVE [facility] Comment on above: Performed By: #### L ACT #### [facility] [address] [place] [address] Dr. Tho Hardy Ketones Ql (U) Negative Normal NEGATIVE [facility] Comment on above: Performed By: #### L ACT #### [facility] [address] [place] [address] Dr. Tho Hardy LEUKOCYTES Negative Normal NEGATIVE [facility] Comment on above: Performed By: #### L ACT #### [facility] [address] [place] [address] Dr. Tho Hardy Nitrite Ql (U) Negative Normal NEGATIVE [facility] Comment on above: Performed By: #### L ACT #### [facility] [address] [place] [address] Dr. Tho Hardy pH (U) 5.5 [pH] Normal 5-9 [facility] Comment on above: Performed By: #### L ACT #### [facility] [address] [place] [address] Dr. Tho Hardy SPEC GRAVITY >=1.030 Abnormal 1.005-<=1.025 [facility] Comment on above: Performed By: #### L ACT #### [facility] [address] [place] [address] Dr. Tho Hardy UA PROTEIN Negative Normal NEGATIVE/ TRACE [facility] Comment on above: Performed By: #### L ACT #### [facility] [address] [place] [address] Dr. Tho Hardy UR MICRO IND INDICATED Normal [facility] Comment on above: Performed By: #### L ACT #### [facility] [address] [place] [address] Dr. Tho Hardy Urobilinogen Qn (U) 0.2 {Roland'U}/dL Normal 0.2 - 1. 0 [facility] Comment on above: Performed By: #### L ACT #### [facility] [address] [place] [address] Dr. Tho Hardy URon 10-14-2022 , QUAL Negative Normal NEGATIVE [facility] Comment on above: Performed By: #### L ACT #### [facility] [address] [place] [address] Dr. Tho Hardy PROF CHEM 8 (BAS METB)on Anion gap [Moles/Vol] 12.8 mmol/L Normal [facility] Comment on above: Performed By: #### B MP #### [facility] [address] [place] [address] Dr. Tho Hardy Calcium [Mass/Vol] 8.7 mg/dL Normal 8.5-10.1 [facility] Comment on above: Performed By: #### B MP #### [facility] [address] [place] [address] Dr. Tho Hardy Chloride [Moles/Vol] 104 mmol/L Normal 98-107 [facility] Comment on above: Performed By: #### B MP #### [facility] [address] [place], [place] [id number] Dr. Tho Hardy CO2 [Moles/Vol] 28.4 mmol/L Normal 21.0-32.0 [facility] Comment on above: Performed By: #### B MP #### [facility] [address] [place] [address] Dr. Tho Hardy Creatinine [Mass/Vol] 0.65 mg/dL Normal 0.55-1.02 [facility] Comment on above: Performed By: #### B MP #### [facility] [address] [place] [address] Dr. Tho Hardy EGFR-AF SRI LANKAN >60 Normal >=60 [facility] Comment on above: Performed By: #### B MP #### [facility] [address] [place] [address] Dr. Tho Hardy EGFR-NON AF SRI LANKAN >60 Normal >=60 [facility] Comment on above: Performed By: #### B MP #### [facility] [address] [place] [address] Dr. Tho Hardy Glucose [Mass/Vol] 86 mg/dL Normal 74-106 [facility] Comment on above: Performed By: #### B MP #### [facility] [address] [place] [address] Dr. Tho Hardy Potassium [Moles/Vol] 3.2 mmol/L Critically low 3.5-5.1 [facility] Comment on above: Performed By: #### B MP #### [facility] [address] [place] [address] Dr. Tho Hardy Sodium [Moles/Vol] 142 mmol/L Normal 136-145 [facility] Comment on above: Performed By: #### B MP #### [facility] [address] [place] [address] Dr. Tho Hardy Urea nitrogen [Mass/Vol] 11.0 mg/dL Normal 7.0-18.0 [facility] Comment on above: Performed By: #### B MP #### [facility] [address] [place] [address] Dr. Tho Hardy Urea nitrogen/Creatinine [Mass ratio] 16.9 mg/mg Normal [facility] Comment on above: Performed By: #### B MP #### [facility] [address] [place] [address] Dr. Tho Hardy URINE MICROSCOPIC ONLYon BACTERIA TRACE Abnormal NONE SEEN [facility] Comment on above: Performed By: #### L ACT #### [facility] [address] [place] [address] Dr. Tho Hrady Bacteria identified Cx Nom (U) NOT INDICATED Normal [facility] Comment on above: Performed By: #### L ACT #### [facility] [address] [place] [address] Dr. Tho Hardy CAST NONE SEEN Normal NONE SEEN [facility] Comment on above: Performed By: #### L ACT #### [facility] [address] [place] [address] Dr. Tho Hardy Crystals LM Nom (Urine sed) NONE SEEN Normal NONE SEEN [facility] Comment on above: Performed By: #### L ACT #### [facility] [address] [place] [address] Dr. Tho Hardy Epithelial cells LM Ql (Urine sed) FEW Abnormal NONE SEEN /RARE [facility] Comment on above: Performed By: #### L ACT #### [facility] [address] [place] [address] Dr. Tho Hardy MUCOUS NONE SEEN Normal NONE SEEN [facility] Comment on above: Performed By: #### L ACT #### [facility] [address] [place] [address] Dr. Tho Hardy RBC 0-2 Normal 0-2 [facility] Comment on above: Performed By: #### L ACT #### [facility] [address] [place] [address] Dr. Tho Hardy WBC NONE SEEN Normal NONE SEEN [facility] Comment on above: Performed By: #### L ACT #### [facility] [address] [place] [address] Dr. Tho Hardy CBC AUTO DIFFon 09-26-2022 BASO # 0.0 103/ul Normal 0.0-0.1 [facility] Comment on above: Performed By: #### L ACT #### [facility] [address] [address] [address] Tho Hardy Basophils/100 WBC (Bld) 0.1 % Critically low 0.2-2.0 [facility] Comment on above: Performed By: #### L ACT #### [facility] [address] [address] [address] Tho Hardy EO # 0.2 103/ul Normal 0.0-0.7 [facility] Comment on above: Performed By: #### L ACT #### [facility] [address] [address] [address] Tho Hardy Eosinophils/100 WBC (Bld) 2.3 % Normal 0.9-7.0 [facility] Comment on above: Performed By: #### L ACT #### [facility] [address] [address] [address] Tho Hardy Erythrocyte distribution width (RBC) [Ratio] 12.7 % Normal 11.0-15.0 [facility] Comment on above: Performed By: #### L ACT #### [facility] [address] [place] [address] Dr. Tho Hardy Hematocrit (Bld) [Volume fraction] 43.4 % Normal 36.0-48.0 [facility] Comment on above: Performed By: #### L ACT #### [facility] [address] [address] [address] Tho Hardy Hemoglobin (Bld) [Mass/Vol] 14.6 g/dL Normal 12.0-16.0 [facility] Comment on above: Performed By: #### L ACT #### [facility] [address] [address] [address] Tho Hardy IG # 0.02 10e3/ul Normal 0.00-0.03 [facility] Comment on above: Performed By: #### L ACT #### [facility] [address] [address] [address] Tho Hardy IG % 0.2 % Normal 0.0-0.5 [facility] Comment on above: Performed By: #### L ACT #### [facility] [address] [address] [address] Tho Hardy LYMPH # 1.8 103/ul Normal 1.2-3.8 [facility] Comment on above: Performed By: #### L ACT #### [facility] [address] [place] [address] Dr. Tho Hardy Lymphocytes/100 WBC (Bld) 20.5 % Normal 20.5-60.0 [facility] Comment on above: Performed By: #### L ACT #### [facility] [address] [place] [address] Dr. Tho Hardy MANUAL DIFF REQ NO Normal [facility] Comment on above: Performed By: #### L ACT #### [facility] [address] [place] [address] Dr. Tho Hardy MCH (RBC) [Entitic mass] 30.4 pg Normal 26.7-34.0 [facility] Comment on above: Performed By: #### L ACT #### [facility] [address] [place] [address] Dr. Tho Hardy MCHC (RBC) [Mass/Vol] 33.6 g/dL Normal 29.9-35.2 [facility] Comment on above: Performed By: #### L ACT #### [facility] [address] [place] [address] Dr. Tho Hardy MCV (RBC) [Entitic vol] 90.4 fL Normal 81.0-99.0 [facility] Comment on above: Performed By: #### L ACT #### [facility] [address] [place] [address] Dr. Tho Hardy MONO # 0.5 103/ul Normal 0.3-0.8 [facility] Comment on above: Performed By: #### L ACT #### [facility] [address] [place] [address] Dr. Tho Hardy Monocytes/100 WBC (Bld) 5.5 % Normal 1.7-12.0 [facility] Comment on above: Performed By: #### L ACT #### [facility] [address] [place] [address] Dr. Tho Hardy NEUT # 6.2 103/ul Normal 1.4-6.5 [facility] Comment on above: Performed By: #### L ACT #### [facility] [address] [place] [address] Dr. Tho Hardy Neutrophils/100 WBC (Bld) 71.4 % Normal 43.0-75.0 [facility] Comment on above: Performed By: #### L ACT #### [facility] [address] [place] [address] Dr. Tho Hardy Platelet mean volume (Bld) [Entitic vol] 9.5 fL Normal 9.5-13.5 [facility] Comment on above: Performed By: #### L ACT #### [facility] [address] [place] [address] Dr. Tho Hardy PLT 234 103/ul Normal 150-450 [facility] Comment on above: Performed By: #### L ACT #### [facility] [address] [place] [address] Dr. Tho Hardy RBC 4.80 106/ul Normal 4.20-5.40 [facility] Comment on above: Performed By: #### L ACT #### [facility] [address] [place] [address] Dr. Tho Hardy WBC 8.7 103/ul Normal 4.0-11.0 [facility] Comment on above: Performed By: #### L ACT #### [facility] [address] [place] [address] Dr. Tho Hardy ER URINE PROFILEon 3 Bilirubin Ql (U) Negative Normal NEGATIVE [facility] Comment on above: Performed By: #### P REGUKRISTIANR UMICRO #### [facility] [address] [place] [address] Dr. Tho Hardy Clarity (U) CLEAR Normal CLEAR [facility] Comment on above: Performed By: #### P REGU, ERUR, UMICRO #### [facility] [address] [place], [place] [id number] Dr. Tho Hardy Color (U) YELLOW Normal YELLOW [facility] Comment on above: Performed By: #### P REGU, ERUR, UMICRO #### [facility] [address] [address] [address] Tho RIVERA A micrscopic examination will be performed if indicated. Normal [facility] Comment on above: Performed By: #### P REGU, ERUR, UMICRO #### [facility] [address] [address] [address] Tho Hardy Glucose Ql (U) Negative Normal NEGATIVE [facility] Comment on above: Performed By: #### P REGU, ERUR, UMICRO #### [facility] [address] [place] [address] Dr. Tho Hardy Hemoglobin Ql (U) SMALL Abnormal NEGATIVE [facility] Comment on above: Performed By: #### P REGU, ERUR, UMICRO #### [facility] [address] [place] [address] Dr. Tho Hardy Ketones Ql (U) Negative Normal NEGATIVE [facility] Comment on above: Performed By: #### P REGU, ERUR, UMICRO #### [facility] [address] [place] [address] Dr. Tho Hardy LEUKOCYTES Negative Normal NEGATIVE [facility] Comment on above: Performed By: #### P REGU, ERUR, UMICRO #### [facility] [address] [address] [address] Tho Hardy Nitrite Ql (U) Negative Normal NEGATIVE [facility] Comment on above: Performed By: #### P REGU, ERUR, UMICRO #### [facility] [address] [address] [address] Tho Hardy pH (U) 5.5 [pH] Normal 5-9 [facility] Comment on above: Performed By: #### P REGU, ERUR, UMICRO #### [facility] [address] [place] [address] Dr. Tho Hardy SPEC GRAVITY >=1.030 Abnormal 1.005-<=1.025 [facility] Comment on above: Performed By: #### P REGU, ERUR, UMICRO #### [facility] [address] [place] [address] Dr. Tho Hardy UA PROTEIN TRACE Normal NEGATIVE/ TRACE [facility] Comment on above: Performed By: #### P REGU, ERUR, UMICRO #### [facility] [address] [place] [address] Dr. Tho Hardy UR MICRO IND INDICATED Normal [facility] Comment on above: Performed By: #### P REGU, ERUR, UMICRO #### [facility] [address] [place] [address] Dr. Tho Hardy Urobilinogen Qn (U) 0.2 {Roland'U}/dL Normal 0.2 - 1. 0 [facility] Comment on above: Performed By: #### P REGU, ERUR, UMICRO #### [facility] [address] [place] [address] Dr. Tho Hardy GI PANEL (PCR)on 09-26-2022 Adenovirus F 40/41 Not detected Normal NOT DETECTED [facility] Comment on above: Performed By: #### G IPANEL #### [facility] [address] [place] [address] Dr. Tho Hardy Astrovirus Not detected Normal NOT DETECTED [facility] Comment on above: Performed By: #### G IPANEL #### [facility] [address] [place] [address] Dr. Tho Hardy C. Diff toxin A/B Not detected Normal NOT DETECTED [facility] Comment on above: Performed By: #### G IPANEL #### [facility] [address] [place] [address] Dr. Tho Hardy Campylobacter Not detected Normal NOT DETECTED [facility] Comment on above: Performed By: #### G IPANEL #### [facility] [address] [place] [address] Dr. Tho Hardy Cryptosporidium Not detected Normal NOT DETECTED [facility] Comment on above: Performed By: #### G IPANEL #### [facility] [address] [address] [address] Tho Hardy Cyclos. Cayetanensis Not detected Normal NOT DETECTED [facility] Comment on above: Performed By: #### G IPANEL #### [facility] [address] [address] [address] Tho Hardy E. Coli O157 Not Applicable Normal Not Applicable [facility] Comment on above: Performed By: #### G IPANEL #### [facility] [address] [address] [address] Tho Hardy E. histolytica Not detected Normal NOT DETECTED [facility] Comment on above: Performed By: #### G IPANEL #### [facility] [address] [place] [address] Dr. Tho Hardy EAEC Not detected Normal NOT DETECTED [facility] Comment on above: Performed By: #### G IPANEL #### [facility] [address] [place] [address] Dr. Tho Hardy EIEC Not detected Normal NOT DETECTED [facility] Comment on above: Performed By: #### G IPANEL #### [facility] [address] [place] [address] Dr. Tho Hardy EPEC Not detected Normal NOT DETECTED [facility] Comment on above: Performed By: #### G IPANEL #### [facility] [address] [place] [address] Dr. Tho Hardy ETEC Not detected Normal NOT DETECTED [facility] Comment on above: Performed By: #### G IPANEL #### [facility] [address] [place] [address] Dr. Tho Rodriguez. Lamblia Not detected Normal NOT DETECTED [facility] Comment on above: Performed By: #### G IPANEL #### [facility] [address] [place] [address] Dr. Tho Hardy GIPANEL CONTROLS PASSED Normal [facility] Comment on above: Performed By: #### G IPANEL #### [facility] [address] [place] [address] Dr. Tho CESPEDES HEADER GI PANEL BACTERIA Normal [facility] Comment on above: Performed By: #### G IPANEL #### [facility] [address] [place] [address] Dr. Tho MCCONNELL ECOLI GI PANEL DIARRHEAGENIC E.COLI / SHIGELLA Normal [facility] Comment on above: Performed By: #### G IPANEL #### [facility] [address] [place] [address] Dr. Tho MCCONNELL INFO SEE BELOW Normal [facility] Comment on above: Result Comment: EAEC - Enteroaggregative E. Coli EPEC- Enteropathogenic E. Coli ETEC- Enterotoxigenic E. Coli lt/st STEC- Shigella-like toxin-producing E. Coli stx1/stx2 EIEC- Shigella/Enteroinvasive E. Coli Performed By: #### G IPANEL #### [facility] [address] [place] [address] Dr. Tho MCCONNELL PARASITES GI PANEL PARASITES Normal [facility] Comment on above: Performed By: #### G IPANEL #### [facility] [address] [place] [address] Dr. Tho MCCONNELL VIRUS GI PANEL VIRUSES Normal [facility] Comment on above: Performed By: #### G IPANEL #### [facility] [address] [place] [address] Dr. Tho Hardy Norovirus GI/GII Not detected Normal NOT DETECTED [facility] Comment on above: Performed By: #### G IPANEL #### [facility] [address] [place] [address] Dr. Tho Hardy P. Shigelloides Not detected Normal NOT DETECTED [facility] Comment on above: Performed By: #### G IPANEL #### [facility] [address] [place] [address] Dr. Tho Hardy Rotavirus A Not detected Normal NOT DETECTED [facility] Comment on above: Performed By: #### G IPANEL #### [facility] [address] [place] [address] Dr. Tho Hardy Salmonella Not detected Normal NOT DETECTED [facility] Comment on above: Performed By: #### G IPANEL #### [facility] [address] [place] [address] Dr. Tho Hardy Sapovirus Not detected Normal NOT DETECTED [facility] Comment on above: Performed By: #### G IPANEL #### [facility] [address] [place] [address] Dr. Tho Hardy STEC Not detected Normal NOT DETECTED [facility] Comment on above: Performed By: #### G IPANEL #### [facility] [address] [place] [address] Dr. Tho Hardy Vibrio Not detected Normal NOT DETECTED [facility] Comment on above: Performed By: #### G IPANEL #### [facility] [address] [place] [address] Dr. Tho Hardy Vibrio Cholera Not detected Normal NOT DETECTED [facility] Comment on above: Performed By: #### G IPANEL #### [facility] [address] [place] [address] Dr. Tho Hardy Y. Enterocolitica Not detected Normal NOT DETECTED [facility] Comment on above: Performed By: #### G IPANEL #### [facility] [address] [place] [address] Dr. Tho Hardy URon 09-26-2022 , QUAL Negative Normal NEGATIVE [facility] Comment on above: Performed By: #### P REGU, ERUR, UMICRO #### [facility] [address] [place] [address] Dr. Tho Hardy PROF CHEM 8 (BAS METB)on Anion gap [Moles/Vol] 15.6 mmol/L Normal [facility] Comment on above: Performed By: #### B MP #### [facility] [address] [place] [address] Dr. Tho Hardy Calcium [Mass/Vol] 9.0 mg/dL Normal 8.5-10.1 [facility] Comment on above: Performed By: #### B MP #### [facility] [address] [address] [address] Tho Hardy Chloride [Moles/Vol] 104 mmol/L Normal 98-107 [facility] Comment on above: Performed By: #### B MP #### [facility] [address] [place] [address] Dr. Tho Hardy CO2 [Moles/Vol] 24.0 mmol/L Normal 21.0-32.0 [facility] Comment on above: Performed By: #### B MP #### [facility] [address] [address] [address] Tho Hardy Creatinine [Mass/Vol] 0.73 mg/dL Normal 0.55-1.02 [facility] Comment on above: Performed By: #### B MP #### [facility] [address] [place] [address] Dr. Tho Hardy EGFR-AF SRI LANKAN >60 Normal >=60 [facility] Comment on above: Performed By: #### B MP #### [facility] [address] [place] [address] Dr. Tho Hardy EGFR-NON AF SRI LANKAN >60 Normal >=60 [facility] Comment on above: Performed By: #### B MP #### [facility] [address] [address] [address] Tho Hardy Glucose [Mass/Vol] 85 mg/dL Normal 74-106 [facility] Comment on above: Performed By: #### B MP #### [facility] [address] [address] [address] Tho Hardy Potassium [Moles/Vol] 3.6 mmol/L Normal 3.5-5.1 [facility] Comment on above: Performed By: #### B MP #### [facility] [address] [place] [address] Dr. Tho Hardy Sodium [Moles/Vol] 140 mmol/L Normal 136-145 [facility] Comment on above: Performed By: #### B MP #### [facility] [address] [address] [address] Tho Hardy Urea nitrogen [Mass/Vol] 12.0 mg/dL Normal 7.0-18.0 [facility] Comment on above: Performed By: #### B MP #### [facility] [address] [place] [address] Dr. Tho Hardy Urea nitrogen/Creatinine [Mass ratio] 16.4 mg/mg Normal [facility] Comment on above: Performed By: #### B MP #### [facility] [address] [place] [address] Dr. Tho Hardy URINE MICROSCOPIC ONLYon BACTERIA TRACE Abnormal NONE SEEN [facility] Comment on above: Performed By: #### P REGU, ERUR, UMICRO #### [facility] [address] [place] [address] Dr. Tho Hardy Bacteria identified Cx Nom (U) NOT INDICATED Normal [facility] Comment on above: Performed By: #### P REGU, ERUR, UMICRO #### [facility] [address] [place] [address] Dr. Tho Hardy CAST NONE SEEN Normal NONE SEEN [facility] Comment on above: Performed By: #### P REGU, ERUR, UMICRO #### [facility] [address] [place] [address] Dr. hTo Hardy Crystals LM Nom (Urine sed) NONE SEEN Normal NONE SEEN [facility] Comment on above: Performed By: #### P REGU, ERUR, UMICRO #### [facility] [address] [place] [address] Dr. Tho Hardy Epithelial cells LM Ql (Urine sed) MANY Abnormal NONE SEEN /RARE [facility] Comment on above: Performed By: #### P REGU, ERUR, UMICRO #### [facility] [address] [place] [address] Dr. Tho Hardy MUCOUS NONE SEEN Normal NONE SEEN [facility] Comment on above: Performed By: #### P REGU, ERUR, UMICRO #### [facility] [address] [place] [address] Dr. Tho Hardy RBC 2-5 Abnormal 0-2 [facility] Comment on above: Performed By: #### P REGU, ERUR, UMICRO #### [facility] [address] [address] [address] Tho Hardy WBC NONE SEEN Normal NONE SEEN [facility] Comment on above: Performed By: #### P REGU, ERUR, UMICRO #### [facility] [address] [place] [address] Dr. Tho Hardy AMYLASEon 2 Amylase [Catalytic activity/Vol] 27 U/L Normal 25-115 [facility] Comment on above: Performed By: #### P REGU, ERUR, UMICRO #### [facility] [address] [place] [address] Dr. Tho Hardy CARDIAC JEAN 3-6on 2 CK [Catalytic activity/Vol] 53 U/L Normal 26-192 [facility] Comment on above: Performed By: #### C MREP #### [facility] [address] [place] [address] Dr. Tho Hardy CK.MB [Mass/Vol] 0.79 ng/mL Normal <=3.60 [facility] Comment on above: Performed By: #### C MREP #### [facility] [address] [place] [address] Dr. Tho Hardy HSTROP 4.6 pg/mL Normal 4.0-51.3 [facility] Comment on above: Result Comment: CUT- OFF POINTS HAVE BEEN ESTABLISHED BASED ON THE FOURTH UNIVERSAL DEFINITIONS OF MYOCARDIAL INFARCTION. THE UPPER REFERENCE LIMIT (URL) OF TROPONIN, DEFINED THE 99TH PERCENTILE OF cTnI DISTRIBUTION IN A REFERENCE POPULATION, HAS BEEN CONFIRMED THE DECISION THRESHOLD FOR VT DIAGNOSIS. Performed By: #### C MREP #### [facility] [address] [place] [address] Dr. Tho Hardy CARDIAC JEAN ADMITon 022 CK [Catalytic activity/Vol] 68 U/L Normal 26-192 [facility] Comment on above: Performed By: #### P REGU, ERUR, UMICRO #### [facility] [address] [place] [address] Dr. Tho Hardy CK.MB [Mass/Vol] 1.11 ng/mL Normal <=3.60 [facility] Comment on above: Performed By: #### RICHARDSON GLAE UMICRO #### [facility] [address] [place] [address] Dr. Tho Hardy HSTROP 4.3 pg/mL Normal 4.0-51.3 [facility] Comment on above: Result Comment: CUT- OFF POINTS HAVE BEEN ESTABLISHED BASED ON THE FOURTH UNIVERSAL DEFINITIONS OF MYOCARDIAL INFARCTION. THE UPPER REFERENCE LIMIT (URL) OF TROPONIN, DEFINED THE 99TH PERCENTILE OF cTnI DISTRIBUTION IN A REFERENCE POPULATION, HAS BEEN CONFIRMED THE DECISION THRESHOLD FOR [place] DIAGNOSIS. Performed By: #### RICHARDSON GALE UMICRO #### [facility] [address] [place] [address] Dr. Tho Hardy KINDRA 29 ng/mL Normal 9-82 [facility] Comment on above: Performed By: #### RICHARDSON GALE UMICRO #### [facility] [address] [place] [address] Dr. Tho Hardy CBC AUTO DIFFon 08-04-2022 BASO # 0.0 103/ul Normal 0.0-0.1 [facility] Comment on above: Performed By: #### RICHARDSON GALE UMICRO #### [facility] [address] [place] [address] Dr. Tho Hardy Basophils/100 WBC (Bld) 0.4 % Normal 0.2-2.0 [facility] Comment on above: Performed By: #### RICHARDSON GALE UMICRO #### [facility] [address] [place] [address] Dr. Tho Hardy EO # 0.2 103/ul Normal 0.0-0.7 [facility] Comment on above: Performed By: #### RICHARDSON GALE UMICRO #### [facility] [address] [place] [address] Dr. Tho Hardy Eosinophils/100 WBC (Bld) 1.7 % Normal 0.9-7.0 [facility] Comment on above: Performed By: #### P REGU ERUR UMICRO #### [facility] [address] [address] [address] Tho Hardy Erythrocyte distribution width (RBC) [Ratio] 12.9 % Normal 11.0-15.0 [facility] Comment on above: Performed By: #### P REGU ERUR UMICRO #### [facility] [address] [place] [address] Dr. Tho Hardy Hematocrit (Bld) [Volume fraction] 43.2 % Normal 36.0-48.0 [facility] Comment on above: Performed By: #### P REGKRISTIAN KramerR UMICRO #### [facility] [address] [place] [address] Dr. Tho Hardy Hemoglobin (Bld) [Mass/Vol] 14.4 g/dL Normal 12.0-16.0 [facility] Comment on above: Performed By: #### P REGKRISTIAN KramerR UMICRO #### [facility] [address] [place] [address] Dr. Tho Hardy IG # 0.05 10e3/ul Critically high 0.00-0.03 [facility] Comment on above: Performed By: #### P REGU ERUR UMICRO #### [facility] [address] [place] [address] Dr. Tho Hardy IG % 0.4 % Normal 0.0-0.5 [facility] Comment on above: Performed By: #### P REGU ERUR UMICRO #### [facility] [address] [place] [address] Dr. Tho Hardy LYMPH # 2.4 103/ul Normal 1.2-3.8 [facility] Comment on above: Performed By: #### P REGU ERUR UMICRO #### [facility] [address] [place] [address] Dr. Tho Hardy Lymphocytes/100 WBC (Bld) 21.3 % Normal 20.5-60.0 [facility] Comment on above: Performed By: #### P REGU ERUR, UMICRO #### [facility] [address] [place] [address] Dr. Tho Hardy MANUAL DIFF REQ NO Normal [facility] Comment on above: Performed By: #### P REGU, ERUR, UMICRO #### [facility] [address] [place] [address] Dr. Tho Hardy MCH (RBC) [Entitic mass] 29.9 pg Normal 26.7-34.0 [facility] Comment on above: Performed By: #### P REGU, ERUR, UMICRO #### [facility] [address] [place] [address] Dr. Tho Hardy MCHC (RBC) [Mass/Vol] 33.3 g/dL Normal 29.9-35.2 [facility] Comment on above: Performed By: #### P REGU, ERUR, UMICRO #### [facility] [address] [place] [address] Dr. Tho Hardy MCV (RBC) [Entitic vol] 89.6 fL Normal 81.0-99.0 [facility] Comment on above: Performed By: #### P REGU, ERUR, UMICRO #### [facility] [address] [place] [address] Dr. Tho Hardy MONO # 0.6 103/ul Normal 0.3-0.8 [facility] Comment on above: Performed By: #### P REGU, ERUR, UMICRO #### [facility] [address] [place] [address] Dr. Tho Hardy Monocytes/100 WBC (Bld) 5.5 % Normal 1.7-12.0 [facility] Comment on above: Performed By: #### P REGU, ERUR, UMICRO #### [facility] [address] [place] [address] Dr. Tho Hardy NEUT # 8.0 103/ul Critically high 1.4-6.5 [facility] Comment on above: Performed By: #### P REGU, ERUR, UMICRO #### [facility] [address] [address] [address] Tho Hardy Neutrophils/100 WBC (Bld) 70.7 % Normal 43.0-75.0 [facility] Comment on above: Performed By: #### P REGU, ERUR, UMICRO #### [facility] [address] [address] [address] Tho Hardy Platelet mean volume (Bld) [Entitic vol] 10.7 fL Normal 9.5-13.5 [facility] Comment on above: Performed By: #### P REGU, ERUR, UMICRO #### [facility] [address] [address] [address] Tho Hardy PLT 220 103/ul Normal 150-450 [facility] Comment on above: Performed By: #### P REGU, ERUR, UMICRO #### [facility] [address] [place] [address] Dr. Tho Hardy RBC 4.82 106/ul Normal 4.20-5.40 [facility] Comment on above: Performed By: #### P REGU, ERUR, UMICRO #### [facility] [address] [address] [address] Tho Hardy WBC 11.3 103/ul Critically high 4.0-11.0 [facility] Comment on above: Performed By: #### P REGU, ERUR, UMICRO #### [facility] [address] [place] [address] ABD/PELV W CONon [...] ISH HECTOR Date: 2022-08-04 05:28 Normal [facility] LACTATE/LACTIC ACIDon 2021 Lactate [Moles/Vol] 1.0 mmol/L Normal 0.4-1.9 [facility] Comment on above: Performed By: #### L ACT #### [facility] [address] [place] [address] Dr. Tho Hardy Lactate [Moles/Vol] 1.2 mmol/L Normal 0.4-1.9 [facility] Comment on above: Performed By: #### L ACT #### [facility] [address] [address] [address] Tho Hardy LIPASEon 08-04-2022 Lipase [Catalytic activity/Vol] 72.0 U/L Critically low 73.0-393.0 [facility] Comment on above: Performed By: #### P REGUKRISTIANR, UMICRO #### [facility] [address] [place] [address] Dr. Tho Hardy PROF 14(COMP METB)on 022 Albumin [Mass/Vol] 3.7 g/dL Normal 3.4-5.0 [facility] Comment on above: Performed By: #### P REGU, ERUR, UMICRO #### [facility] [address] [place] [address] Dr. Tho Hardy Albumin/Globulin [Mass ratio] 0.9 {ratio} Normal [facility] Comment on above: Performed By: #### P REGU, ERUR, UMICRO #### [facility] [address] [place], [place] [id number] Dr. Tho Hardy ALP [Catalytic activity/Vol] 83 U/L Normal 46-116 [facility] Comment on above: Performed By: #### P REGU, ERUR, UMICRO #### [facility] [address] [place] [address] Dr. Tho Hardy ALT [Catalytic activity/Vol] 36 U/L Normal 14-59 [facility] Comment on above: Performed By: #### P REGU, ERUR, UMICRO #### [facility] [address] [place] [address] Dr. Tho Hardy Anion gap [Moles/Vol] 9.7 mmol/L Normal [facility] Comment on above: Performed By: #### P REGU, ERUR, UMICRO #### [facility] [address] [place] [address] Dr. Tho Hardy AST [Catalytic activity/Vol] 19 U/L Normal 15-37 [facility] Comment on above: Performed By: #### P REGU, ERUR, UMICRO #### [facility] [address] [place] [address] Dr. Tho Hardy Bilirubin [Mass/Vol] 0.3 mg/dL Normal 0.2-1.0 [facility] Comment on above: Performed By: #### P REGU, ERUR, UMICRO #### [facility] [address] [place] [address] Dr. Tho Hardy Calcium [Mass/Vol] 8.9 mg/dL Normal 8.5-10.1 [facility] Comment on above: Performed By: #### P REGU, ERUR, UMICRO #### [facility] [address] [address] [address] Tho Hardy Chloride [Moles/Vol] 103 mmol/L Normal 98-107 [facility] Comment on above: Performed By: #### P REGU, ERUR, UMICRO #### [facility] [address] [place] [address] Dr. Tho Hardy CO2 [Moles/Vol] 27.8 mmol/L Normal 21.0-32.0 [facility] Comment on above: Performed By: #### P REGU, ERUR, UMICRO #### [facility] [address] [place] [address] Dr. Tho Hardy Creatinine [Mass/Vol] 0.62 mg/dL Normal 0.55-1.02 [facility] Comment on above: Performed By: #### P REGU, ERUR, UMICRO #### [facility] [address] [address] [address] Tho Hardy EGFR-AF SRI LANKAN >60 Normal >=60 [facility] Comment on above: Performed By: #### P REGU ERUR, UMICRO #### [facility] [address] [place] [address] Dr. Tho Hardy EGFR-NON AF SRI LANKAN >60 Normal >=60 [facility] Comment on above: Performed By: #### P REGU ERUR, UMICRO #### [facility] [address] [place] [address] Dr. Tho Hardy Globulin (S) [Mass/Vol] 3.9 g/dL Normal [facility] Comment on above: Performed By: #### P REGU ERUR, UMICRO #### [facility] [address] [place] [address] Dr. Tho Hardy Glucose [Mass/Vol] 98 mg/dL Normal 74-106 [facility] Comment on above: Performed By: #### P REGU, ERUR, UMICRO #### [facility] [address] [place] [address] Dr. Tho Hardy Potassium [Moles/Vol] 3.5 mmol/L Normal 3.5-5.1 [facility] Comment on above: Performed By: #### P REGU, ERUR, UMICRO #### [facility] [address] [place] [address] Dr. Tho Hardy Protein [Mass/Vol] 7.6 g/dL Normal 6.4-8.2 [facility] Comment on above: Performed By: #### P REGU, ERUR, UMICRO #### [facility] [address] [address] [address] Tho Hardy Sodium [Moles/Vol] 137 mmol/L Normal 136-145 [facility] Comment on above: Performed By: #### P REGKRISTIAN KramerR UMICRO #### [facility] [address] [address] [address] Tho Hardy Urea nitrogen [Mass/Vol] 18.0 mg/dL Normal 7.0-18.0 [facility] Comment on above: Performed By: #### P REGRICHARDSON Kramer UMICRO #### [facility] [address] [address] [address] Tho Hardy Urea nitrogen/Creatinine [Mass ratio] 29.0 mg/mg Normal [facility] Comment on above: Performed By: #### RICHARDSON GALE UMICRO #### [facility] [address] [address] [address] Tho Hardy XR CHEST 1 Von [...] JOLENE BURDICK Date: 2022-08-04 02:02 Normal [facility] D-DIMERon 07-09-2022 D-DIMER 0.23 mg/L FEU Normal <=0.59 [facility] Comment on above: Performed By: #### P RICHARDSON MCNEIL UMICRO #### [facility] [address] [address] [address] Tho Hardy D-DIMER COMMENTS SEE BELOW Normal [facility] Comment on above: Result Comment: Incr [...] hospitalization. Performed By: #### P RICHARDSON MCNEIL UMICRO #### [facility] [address] [address] [address] Tho Hardy XR HIP LT 2 [...] by: JOSIE KING Date: 2022-07-08 23:54 Normal [facility] US PELVIS TRANSVAGon 05-01- 022 US PELVIS TRANSVAG EXAM: Pelvic ultrasound [...] by: AYAD BIGGS Date: 2022-05-01 10:25 Normal [facility] CNOVon 04-26-2022 CNOV Office Visit ([facility] ) CONNIE SALCIDO ([id number]) 1995 F Date Time Provider Department 04/26/22 1:30 [facility] [place] your visit today, we recorded the following information about you: Pulse Blood pressure Weight Height 104/minute 140/84 138.3 kg 1.524 m Last Period 04/19/22 Jess Suero MA 04/26/2022 1:37 PM Signed 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 NO Have you had unintentional weight loss of 15 lbs/7 Kg in the last 3-6 months? 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 NO Have you had unintentional weight loss of 15 lbs/7 Kg in the last 3-6 months? NO Bowels: regular Wound: none Temperature: No Drains: No Encounter Status:Closed by CARLOS PALENCIA on 04/26/22 Normal [facility] CT ABD/PELV W CONon 04-12-20 CT ABD/PELV [...] appendix is normal. Vascular: No significant abnormality. Mesentery/retroperito neum: No free fluid, free air or focal [...] by: YENI PARNELL Date: 2022-04-12 00:02 Normal [facility] CBC AUTO DIFFon 04-11-2022 BASO # 0.0 103/ul Normal 0.0-0.1 [facility] Comment on above: Performed By: #### P REGU, ERUR, UMICRO #### [facility] [address] [place] [address] Dr. Tho Hardy Basophils/100 WBC (Bld) 0.2 % Normal 0.2-2.0 [facility] Comment on above: Performed By: #### P REGU, ERUR, UMICRO #### [facility] [address] [place] [address] Dr. Tho Hardy EO # 0.1 103/ul Normal 0.0-0.7 [facility] Comment on above: Performed By: #### P REGU, ERUR, UMICRO #### [facility] [address] [place] [address] Dr. Tho Hardy Eosinophils/100 WBC (Bld) 0.7 % Critically low 0.9-7.0 [facility] Comment on above: Performed By: #### P REGU, ERUR, UMICRO #### [facility] [address] [place] [address] Dr. Tho Hardy Erythrocyte distribution width (RBC) [Ratio] 13.4 % Normal 11.0-15.0 [facility] Comment on above: Performed By: #### P REGU, ERUR, UMICRO #### [facility] [address] [place] [address] Dr. Tho Hardy Hematocrit (Bld) [Volume fraction] 39.9 % Normal 36.0-48.0 [facility] Comment on above: Performed By: #### P REGU, ERUR, UMICRO #### [facility] [address] [place] [address] Dr. Tho Hardy Hemoglobin (Bld) [Mass/Vol] 13.3 g/dL Normal 12.0-16.0 [facility] Comment on above: Performed By: #### P REGU, ERUR, UMICRO #### [facility] [address] [place] [address] Dr. Tho Hardy IG # 0.04 10e3/ul Critically high 0.00-0.03 [facility] Comment on above: Performed By: #### P REGUKRISTIANR, UMICRO #### [facility] [address] [address] [address] Tho Hardy IG % 0.4 % Normal 0.0-0.5 [facility] Comment on above: Performed By: #### P REGU ERUR, UMICRO #### [facility] [address] [address] [address] Tho Hardy LYMPH # 2.8 103/ul Normal 1.2-3.8 [facility] Comment on above: Performed By: #### P REGUKRISTIANR, UMICRO #### [facility] [address] [place] [address] Dr. Tho Hardy Lymphocytes/100 WBC (Bld) 31.1 % Normal 20.5-60.0 [facility] Comment on above: Performed By: #### P REGU ERUR, UMICRO #### [facility] [address] [place] [address] Dr. Tho Hardy MANUAL DIFF REQ NO Normal [facility] Comment on above: Performed By: #### P REGU ERUR, UMICRO #### [facility] [address] [place] [address] Dr. Tho Hardy MCH (RBC) [Entitic mass] 29.8 pg Normal 26.7-34.0 [facility] Comment on above: Performed By: #### P REGU, ERUR, UMICRO #### [facility] [address] [place] [address] Dr. Tho Hardy MCHC (RBC) [Mass/Vol] 33.3 g/dL Normal 29.9-35.2 [facility] Comment on above: Performed By: #### P REGU, ERUR, UMICRO #### [facility] [address] [place] [address] Dr. Tho Hardy MCV (RBC) [Entitic vol] 89.5 fL Normal 81.0-99.0 [facility] Comment on above: Performed By: #### P REGU, ERUR, UMICRO #### [facility] [address] [address] [address] Tho Hardy MONO # 0.7 103/ul Normal 0.3-0.8 [facility] Comment on above: Performed By: #### P REGU, ERUR, UMICRO #### [facility] [address] [address] [address] Tho Hardy Monocytes/100 WBC (Bld) 7.3 % Normal 1.7-12.0 [facility] Comment on above: Performed By: #### P REGU, ERUR, UMICRO #### [facility] [address] [place] [address] Dr. Tho Hardy NEUT # 5.4 103/ul Normal 1.4-6.5 [facility] Comment on above: Performed By: #### P REGU, ERUR, UMICRO #### [facility] [address] [place] [address] Dr. Tho Hardy Neutrophils/100 WBC (Bld) 60.3 % Normal 43.0-75.0 [facility] Comment on above: Performed By: #### P REGU, ERUR, UMICRO #### [facility] [address] [place] [address] Dr. Tho Hardy Platelet mean volume (Bld) [Entitic vol] 9.1 fL Critically low 9.5-13.5 [facility] Comment on above: Performed By: #### P REGU, ERUR, UMICRO #### [facility] [address] [place] [address] Dr. Tho Hardy PLT 249 103/ul Normal 150-450 [facility] Comment on above: Performed By: #### P REGU, ERUR, UMICRO #### [facility] [address] [place] [address] Dr. Tho Hardy RBC 4.46 106/ul Normal 4.20-5.40 [facility] Comment on above: Performed By: #### P REGU, ERUR, UMICRO #### [facility] [address] [address] [address] Tho Hardy WBC 9.0 103/ul Normal 4.0-11.0 [facility] Comment on above: Performed By: #### P RICHARDSON MCNEIL UMICRO #### [facility] [address] [address] [address] Tho Hardy ER URINE PROFILEon 2 Bilirubin Ql (U) Negative Normal NEGATIVE The [facility] Comment on above: Performed By: #### B MP #### [facility] [address] [place] [address] Dr. Tho Hardy Clarity (U) CLEAR Normal CLEAR [facility] Comment on above: Performed By: #### B MP #### [facility] [address] [place] [address] Dr. Tho Hardy Color (U) YELLOW Normal YELLOW [facility] Comment on above: Performed By: #### B MP #### [facility] [address] [place] [address] Dr. Tho RIVERA A micrscopic examination will be performed if indicated. Normal [facility] Comment on above: Performed By: #### B MP #### [facility] [address] [place] [address] Dr. Tho Hardy Glucose Ql (U) Negative Normal NEGATIVE The [facility] Comment on above: Performed By: #### B MP #### [facility] [address] [address] [address] Tho Hardy Hemoglobin Ql (U) MODERATE Abnormal NEGATIVE The [facility] Comment on above: Performed By: #### B MP #### [facility] [address] [address] [address] Tho Hardy Ketones Ql (U) Negative Normal NEGATIVE [facility] Comment on above: Performed By: #### B MP #### [facility] [address] [place] [address] Dr. Tho Hardy LEUKOCYTES Negative Normal NEGATIVE [facility] Comment on above: Performed By: #### B MP #### [facility] [address] [place] [address] Dr. Tho Hardy Nitrite Ql (U) Negative Normal NEGATIVE [facility] Comment on above: Performed By: #### B MP #### [facility] [address] [place] [address] Dr. Tho Hardy pH (U) 5.5 [pH] Normal 5-9 [facility] Comment on above: Performed By: #### B MP #### [facility] [address] [place] [address] Dr. Tho Hardy SPEC GRAVITY >=1.030 Abnormal 1.005-<=1.025 [facility] Comment on above: Performed By: #### B MP #### [facility] [address] [place] [address] Dr. Tho Hardy UA PROTEIN Negative Normal NEGATIVE/ TRACE [facility] Comment on above: Performed By: #### B MP #### [facility] [address] [place] [address] Dr. Toh Hardy UR MICRO IND INDICATED Normal [facility] Comment on above: Performed By: #### B MP #### [facility] [address] [place] [address] Dr. Tho Hardy Urobilinogen Qn (U) 0.2 {Roland'U}/dL Normal 0.2 - 1. 0 [facility] Comment on above: Performed By: #### B MP #### [facility] [address] [place] [address] Dr. Tho Hardy LIPASEon 04-11-2022 Lipase [Catalytic activity/Vol] 88.0 U/L Normal 73.0-393.0 [facility] Comment on above: Performed By: #### L ACT #### [facility] [address] [place] [address] Dr. Tho Hardy PREG HCG QUALon 04-11-2022 , QUAL Negative Normal NEGATIVE [facility] Comment on above: Performed By: #### P REG #### [facility] [address] [place] [address] Dr. Tho Hardy PROF 14(COMP METB)on 022 Albumin [Mass/Vol] 3.5 g/dL Normal 3.4-5.0 [facility] Comment on above: Performed By: #### L ACT #### [facility] [address] [place] [address] Dr. Tho Hardy Albumin/Globulin [Mass ratio] 0.9 {ratio} Normal [facility] Comment on above: Performed By: #### L ACT #### [facility] [address] [place] [address] Dr. Tho Hardy ALP [Catalytic activity/Vol] 73 U/L Normal 46-116 [facility] Comment on above: Performed By: #### L ACT #### [facility] [address] [place] [address] Dr. Tho Hardy ALT [Catalytic activity/Vol] 29 U/L Normal 14-59 [facility] Comment on above: Performed By: #### L ACT #### [facility] [address] [place] [address] Dr. Tho Hardy Anion gap [Moles/Vol] 10.4 mmol/L Normal [facility] Comment on above: Performed By: #### L ACT #### [facility] [address] [place] [address] Dr. Tho Hardy AST [Catalytic activity/Vol] 15 U/L Normal 15-37 [facility] Comment on above: Performed By: #### L ACT #### [facility] [address] [place] [address] Dr. Tho Hardy Bilirubin [Mass/Vol] 0.4 mg/dL Normal 0.2-1.0 [facility] Comment on above: Performed By: #### L ACT #### [facility] [address] [place] [address] Dr. Tho Hardy Calcium [Mass/Vol] 8.4 mg/dL Critically low 8.5-10.1 [facility] Comment on above: Performed By: #### L ACT #### [facility] [address] [place] [address] Dr. Tho Hardy Chloride [Moles/Vol] 103 mmol/L Normal 98-107 [facility] Comment on above: Performed By: #### L ACT #### [facility] [address] [address] [address] Tho Hardy CO2 [Moles/Vol] 27.8 mmol/L Normal 21.0-32.0 [facility] Comment on above: Performed By: #### L ACT #### [facility] [address] [address] [address] Tho Hardy Creatinine [Mass/Vol] 0.75 mg/dL Normal 0.55-1.02 [facility] Comment on above: Performed By: #### L ACT #### [facility] [address] [address] [address] Tho Hardy EGFR-AF SRI LANKAN >60 Normal >=60 [facility] Comment on above: Performed By: #### L ACT #### [facility] [address] [address] [address] Tho Hardy EGFR-NON AF SRI LANKAN >60 Normal >=60 [facility] Comment on above: Performed By: #### L ACT #### [facility] [address] [address] [address] Tho Hardy Globulin (S) [Mass/Vol] 3.7 g/dL Normal [facility] Comment on above: Performed By: #### L ACT #### [facility] [address] [address] [address] Tho Hardy Glucose [Mass/Vol] 88 mg/dL Normal 74-106 [facility] Comment on above: Performed By: #### L ACT #### [facility] [address] [address] [address] Tho Hardy Potassium [Moles/Vol] 3.2 mmol/L Critically low 3.5-5.1 [facility] Comment on above: Performed By: #### L ACT #### [facility] [address] [address] [address] Tho Hardy Protein [Mass/Vol] 7.2 g/dL Normal 6.4-8.2 [facility] Comment on above: Performed By: #### L ACT #### [facility] [address] [address] [address] Tho Hardy Sodium [Moles/Vol] 138 mmol/L Normal 136-145 [facility] Comment on above: Performed By: #### L ACT #### [facility] [address] [address] [address] Tho Hardy Urea nitrogen [Mass/Vol] 13.0 mg/dL Normal 7.0-18.0 [facility] Comment on above: Performed By: #### L ACT #### [facility] [address] [place] [address] Dr. Tho Hardy Urea nitrogen/Creatinine [Mass ratio] 17.3 mg/mg Normal [facility] Comment on above: Performed By: #### L ACT #### [facility] [address] [place] [address] Dr. Tho Hardy PROTIMEon 04-11-2022 INR Coag (PPP) [Relative time] 0.97 {INR} Normal [facility] Comment on above: Performed By: #### P REGRICHARDSON Kramer UMICRO #### [facility] [address] [place] [address] Dr. Tho Hardy INR GUIDELINES SEE BELOW Normal [facility] Comment on above: Result Comment: JOSEFINA RED INR: 2.0 - 3.0 CONDITIONS NOT LISTED BELOW 2.5 - 3.5 FOR PROSTHETIC HEART VALVE REPLACEMENT 2.5 - 3.5 RECURRENT THROMBOSIS Performed By: #### P RICHARDSON MCNEIL UMICRO #### [facility] [address] [place] [address] Dr. Tho Hardy PT Coag (PPP) [Time] 10.5 s Normal 9.0-11.6 [facility] Comment on above: Performed By: #### P REGURICHARDSON UMICRO #### [facility] [address] [place] [address] Dr. Tho Hardy PTTon 04-11-2022 aPTT Coag (Bld) [Time] 27.8 s Normal 22.3-36.2 [facility] Comment on above: Performed By: #### P REGUKRISTIANRLLOYD #### [facility] [address] [place] [address] Dr. Tho Hardy URINE MICROSCOPIC ONLYon BACTERIA NONE SEEN Normal NONE SEEN [facility] Comment on above: Performed By: #### B MP #### [facility] [address] [place] [address] Dr. Tho Hardy Bacteria identified Cx Nom (U) NOT INDICATED Normal [facility] Comment on above: Performed By: #### B MP #### [facility] [address] [place] [address] Dr. Tho Hardy CAST NONE SEEN Normal NONE SEEN [facility] Comment on above: Performed By: #### B MP #### [facility] [address] [place] [address] Dr. Tho Hardy Crystals LM Nom (Urine sed) NONE SEEN Normal NONE SEEN [facility] Comment on above: Performed By: #### B MP #### [facility] [address] [place] [address] Dr. Tho Hardy Epithelial cells LM Ql (Urine sed) NONE SEEN Normal NONE SEEN /RARE [facility] Comment on above: Performed By: #### B MP #### [facility] [address] [place] [address] Dr. Tho Hardy MUCOUS NONE SEEN Normal NONE SEEN [facility] Comment on above: Performed By: #### B MP #### [facility] [address] [place] [address] Dr. Tho Hardy RBC 2-5 Abnormal 0-2 [facility] Comment on above: Performed By: #### B MP #### [facility] [address] [place] [address] Dr. Tho Hardy WBC NONE SEEN Normal NONE SEEN [facility] Comment on above: Performed By: #### B MP #### [facility] [address] [place] [address] Dr. Tho Hardy XR ANKLE LT MIN 3 Von 2021 XR ANKLE LT MIN 3 V EXAM: XR ANKLE LT VT N 3 V HISTORY: Left ankle pain COMPARISON: None. TECHNIQUE: 3 views FINDINGS: No osseous lesion, fracture, dislocation or subluxation. Joint spaces are normal. No visualized effusion. No visualized soft tissue edema. IMPRESSION: Normal x-rays Electronically authenticated by: AYAD CORTEZ Date: 2022-02-06 19:06 Normal [facility] Vital Signs Date Time Vital Sign Value Performing Clinician Danny neves 12-21-2024 15:05-0400 Body mass index (BMI) [Ratio] 56.14 kg/m2 Noah Isabelle DO Work Phone: [facility] 12-21-2024 15:05-0400 Body weight 134.77 kg Noah Isabelle DO Work Phone: [facility] 12-21-2024 15:05-0400 Diastolic blood pressure 70 mm[Hg] Noah Isabelle DO Work Phone: [facility] 12-21-2024 15:05-0400 Systolic blood pressure 118 mm[Hg] Noah Isabelle DO Work Phone: [facility] 09-13-2024 15:10-0500 Body mass index (BMI) [Ratio] 53.31 kg/m2 Noah Isabelle DO Work Phone: [facility] 09-13-2024 15:10-0500 Body weight 127.97 kg Noah Isabelle DO Work Phone: [facility] 09-13-2024 15:10-0500 Diastolic blood pressure 82 mm[Hg] Noah Isabelle DO Work Phone: [facility] 09-13-2024 15:10-0500 Systolic blood pressure 130 mm[Hg] Noah Isabelle DO Work Phone: [facility] 05-16-2022 14:03-0400 Body weight 133.81 kg Rosa Maria Israel MD Work Phone: [facility] 05-16-2022 12:56-0400 Body height 152.[address] Work Phone: [facility] 05-16-2022 12:56-0400 Body weight 133.[address] Work Phone: [facility] Encounters Encounter Date Encounter Type Care Provider Facility Start: 04-11-2025 ambulatory [facility] Start: 03-30-2025 End: 03-30-2025 ambulatory [facility] Start: 03-30-2025 End: 03-30-2025 ambulatory [facility] Start: 03-25-2025 End: 03-25-2025 ambulatory [facility] Start: 12-21-2024 End: 12-21-2024 Patient encounter procedure Noah Isabelle DO Work Phone: [facility] Work Phone: Start: 12-21-2024 End: 12-21-2024 Periodic preventive med est patient 18-39 yrs Noah Isabelle DO Work Phone: [facility] Comment on above: Well woman exam with routine gynecological exam; Sweating abnormality; Status post hysterectomy; Vaginal dryness; BV (bacterial vaginosis); Yeast infection of the vagina Start: 12-21-2024 End: 12-21-2024 ambulatory NOAH ISABELLE Not Available Start: 12-21-2024 End: 12-21-2024 Bamboo flowsheet Noah Isabelle DO Work Phone: [facility] Start: 12-21-2024 End: 12-26-2024 Bamboo flowsheet Noah Isabelle DO Work Phone: [facility] Start: 12-21-2024 End: 12-26-2024 Clinisync Result Encounter Noah Isabelle DO Work Phone: [facility] External Department Unsolicited Start: 09-13-2024 End: 09-13-2024 Office outpatient visit 15 minutes Noah Isabelle DO Work Phone: [facility] Comment on above: Sweating abnormality ; Status post hysterectomy; Vaginal dryness Start: 09-13-2024 End: 09-13-2024 ambulatory NOAH ISABELLE Not Available Start: 09-13-2024 End: 09-13-2024 Bamboo flowsheet Noah Isabelle DO Work Phone: [facility] Start: 09-13-2024 End: 09-13-2024 Bamboo flowsheet Noah Isabelle DO Work Phone: [facility] Start: 01-06-2024 End: 01-07-2024 ambulatory KERA COONEY Facility:[facility] Start: 11-11-2023 End: 11-12-2023 ambulatory KERA COONEY Facility:[facility] Start: 08-19-2023 End: 08-20-2023 ambulatory Carmen Jasper Coello Facility:[facility] Start: 12-30-2022 End: 12-30-2022 ambulatory MITESH WHITMAN [...] Maria Israel MD Work Phone: [facility] Start: 05-01-2022 End: 05-02-[address] NOAH WALTON . Facility: Start: 04-11-2022 End: 04-12-[address] VALERIE DONATO . Facility:[facility] Start: 03-21-2022 End: 03-22-2022 ambulatory ISH EDGAR Facility:[facility] Start: 03-18-2022 End: 03-18-[address] VALERIE DONATO . Facility:[facility] Start: 03-14-2022 End: 04-04-2022 ambulatory GELYSHAYY MORELOSTI Facility:[facility] Start: 02-14-2022 End: 02-15-2022 ambulatory ISH EDGAR Facility:[facility] Start: 02-06-2022 End: 02-06-[address] VALERIE DONATO . Facility: Procedures Date Procedure Procedure Detail Performing Clinician Start: 12-21-2024 IGP,APTIMA HPV,AGE GDLN Noah Walton DO Work Phone: Start: 12-17-2022 Microscopic observation [Identifier] in Cervix by Cyto stain Noah Walton DO Work Phone: H/O: hysterectomy Status post hysterectom y Noah Walton DO Work Phone: H/O: hysterectomy Status post hysterectom y Noah Walton DO Work Phone: Plan of Treatment Date Care Activity Detail Author Start: 12-28-2025 End: 12-28-2025 Patient encounter procedure 12/28/2025 4:00 PM EDT Office Visit [facility] [address] [place] [address] Noah Walton DO [address] [place] [address] [facility] Start: 12-17-2025 Screening for malign ant neoplasm of cervix [facility] Start: 05-09-2025 Influenza vaccination Influenz a Vaccine (Season Ended) [facility] Start: 12-21-2024 End: 12-21-2024 Patient encounter procedure 12/21/2024 3:00 PM EDT Office Visit [facility] [address] [place] [phone] Noah Walton, DO [address] [place] [address] Arrived [facility] Comment on above: Arrived Start: 09-13-2024 End: 09-13-2024 Patient encounter procedure 09/13/2024 2:50 PM EST Office Visit [facility] [address] [place] [id number] Noah Walton, DO [address] [place] [address] Arrived [facility] Comment on above: Arrived Start: 05-09-2024 Influenza vaccination Influenza Vacc ine (#1) [facility] Start: 2023 Screening for malign ant neoplasm of cervix HPV/Cotest [facility] Start: 05-16-2022 End: 05-14-2023 25-hydroxyvitamin D3 [Mass/volume] in Serum or Plasma VITAMIN D 25 HYDROXY Lab Routine Abnormal weight gain Preop testing Morbid obesity with BMI of 50.0-59.9, adult (HCC) HANH (obstructive sleep apnea) Expected: 05/16/2022 (Approximate), Expires: 05/14/2023 [facility] Work Phone: Comment on above: Expected: 05/16/2022 (Approximate), Expires: 05/14/2023 Start: 05-16-2022 End: 05-14-2023 CBC panel - Blood by Automated count CBC Lab Routine Abnormal weight gain Preop testing Morbid obesity with BMI of 50.0-59.9, adult (HCC) HANH (obstructive sleep apnea) Expected: 05/16/2022 (Approximate), Expires: 05/14/2023 [facility] Work Phone: Comment on above: Expected: 05/16/2022 (Approximate), Expires: 05/14/2023 Start: 05-16-2022 End: 05-14-2023 Cobalamin (Vitamin B12) [Mass/volume] in Serum or Plasma VITAMIN B12 BLOOD Lab Routine Abnormal weight gain Preop testing Morbid obesity with BMI of 50.0-59.9, adult (HCC) HANH (obstructive sleep apnea) Expected: 05/16/2022 (Approximate), Expires: 05/14/2023 [facility] Work Phone: Comment on above: Expected: 05/16/2022 (Approximate), Expires: 05/14/2023 Start: 05-16-2022 End: 05-14-2023 Comprehensive metabolic 2000 panel - Serum or Plasma COMP METABOLIC PANEL Lab Routine Abnormal weight gain Preop testing Morbid obesity with BMI of 50.0-59.9, adult (HCC) HANH (obstructive sleep apnea) Expected: 05/16/2022 (Approximate), Expires: 05/14/2023 [facility] Work Phone: Comment on above: Expected: 05/16/2022 (Approximate), Expires: 05/14/2023 Start: 05-16-2022 End: 05-14-2023 Folate [Mass/volume] in Serum or Plasma FOLATE SERUM Lab Routine Abnormal weight gain Preop testing Morbid obesity with BMI of 50.0-59.9, adult (HCC) HANH (obstructive sleep apnea) Expected: 05/16/2022 (Approximate), Expires: 05/14/2023 [facility] Work Phone: Comment on above: Expected: 05/16/2022 (Approximate), Expires: 05/14/2023 Start: 05-16-2022 End: 05-14-2023 Hemoglobin A1c in Blood HGB A1C Lab Routine Abnormal weight gain Preop testing Morbid obesity with BMI of 50.0-59.9, adult (HCC) HANH (obstructive sleep apnea) Expected: 05/16/2022 (Approximate), Expires: 05/14/2023 [facility] Work Phone: Comment on above: Expected: 05/16/2022 (Approximate), Expires: 05/14/2023 Start: 05-16-2022 End: 05-14-2023 Iron and Iron binding capacity panel - Serum or Plasma IRON + TIBC Lab Routine Abnormal weight gain Preop testing Morbid obesity with BMI of 50.0-59.9, adult (HCC) HANH (obstructive sleep apnea) Expected: 05/16/2022 (Approximate), Expires: 05/14/2023 [facility] Work Phone: Comment on above: Expected: 05/16/2022 (Approximate), Expires: 05/14/2023 Start: 05-16-2022 End: 05-14-2023 Parathyrin.intact [Mass/volume] in Serum or Plasma PTH INTACT BLD Lab Routine Abnormal weight gain Preop testing Morbid obesity with BMI of 50.0-59.9, adult (HCC) HANH (obstructive sleep apnea) Expected: 05/16/2022 (Approximate), Expires: 05/14/2023 [facility] Work Phone: Comment on above: Expected: 05/16/2022 (Approximate), Expires: 05/14/2023 Start: 05-16-2022 End: 05-14-2023 Thyrotropin [Units/volume] in Serum or Plasma TSH BLD Lab Routine Abnormal weight gain Preop testing Morbid obesity with BMI of 50.0-59.9, adult (HCC) HANH (obstructive sleep apnea) Expected: 05/16/2022 (Approximate), Expires: 05/14/2023 [facility] Work Phone: Comment on above: Expected: 05/16/2022 (Approximate), Expires: 05/14/2023 Start: 05-16-2022 End: 07-16-2022 VITAMIN B1 (THIAMINE), WHOLE BLOOD VITAMIN B1 (THIAMINE), WHOLE BLOOD Lab Routine Abnormal weight gain Preop testing Morbid obesity with BMI of 50.0-59.9, adult (HCC) HANH (obstructive sleep apnea) Expected: 05/16/2022 (Approximate), Expires: 07/16/2022 [facility] Work Phone: Comment on above: Expected: 05/16/2022 (Approximate), Expires: 07/16/2022 Start: 05-09-2022 Influenza vaccination INFLUENZA (#1) [facility] Start: 05-05-2022 COVID-19 VACCINE (3 - Booster for Pfizer series) COVID-19 VACCINE (3 - Booster for Pfizer series) [facility] Start: 2014 PAP TESTING PAP TESTING [facility] Start: 2012 Urine microalbumin profile DTAP,TDAP,TD (1 - Tdap) [facility] Start: 2011 HEPATITIS C SCREENING HEPATITIS C SC REENING [facility] Start: 2011 HIV SCREENING HIV SCREENING [facility] Start: 2005 Adult depression screening assessment DEPRESSION SCREENING [facility] Start: 1993 HEPATITIS B (1 of 3 - 3-dose series) HEPATITIS B (1 of 3 - 3-dose series) [facility] Cytology Cervical or vaginal smear or scraping study Pap Smear Pathology and Cytology Routine Well woman exam with routine gynecological exam Ordered: 12/21/2024 [facility] Work Phone: Comment on above: Ordered: 12/21/2024 End: 05-14-2023 ECG COMPLETE ECG COMPLETE ECG Routine Abnormal weight gain Preop testing Morbid obesity with BMI of 50.0-59.9, adult (HCC) HANH (obstructive sleep apnea) 1 Occurrences starting 05/16/2022 until 05/14/2023 [facility] Work Phone: Comment on above: 1 Occurrences starti ng 05/16/2022 until 05/14/2023 Human papilloma viru s DNA [Presence] in Unspecified specimen by Probe with amplification HPV DNA probe, amplified Microbiology Routine Well woman exam with routine gynecological exam Ordered: 12/21/2024 [facility] Comment on above: Ordered: 12/21/2024 End: 06-13-2023 Radiologic exam chest 2 views XR CHEST 2V FRONTAL/LAT Radiology Routine Abnormal weight gain Preop testing Morbid obesity with BMI of 50.0-59.9, adult (HCC) HANH (obstructive sleep apnea) 1 Occurrences starting 05/16/2022 until 06/13/2023 [facility] Work Phone: Comment on above: 1 Occurrences starti ng 05/16/2022 until 06/13/2023 [facility] Immunizations Immunization Date Immunization Notes Care Provider Simba may 06-18-2022 influenza virus vacc ine, unspecified formulation Noahpatt Braxtono DO Work Phone: [facility] Payers Date Payer Category Payer Medicaid [employer] [id number] 2018-Present [phone] [place] [address] [id number] Medicaid [id number] 2018 Medicaid (Managed Care) [employer] [id number] 1993 Unknown [id number] 2.16840.1.707241.3.579.2. 593 1993 Unknown [id number] 2.16840.1.117776.3.579.2. 593 1993 Unknown [id number] 2.16840.1.808372.3.579.2. 593 1993 Unknown [id number] 2.16840.1.801670.3.579.2. 593 1993 Unknown [id number] 2.16840.1.256788.3.579.2. 593 1993 Unknown [id number] 2.16.840.1.788035.3.579.2. 593 1993 Unknown [id number] 2.16.840.1.719438.3.579.2. 593 1993 Unknown [id number] 2.16.840.1.727343.3.579.2. 593 1993 Unknown [id number] 2.16.840.1.647663.3.579.2. 593 1993 Unknown [id number] 2.16.840.1.682492.3.579.2. 593 1993 Unknown [id number] 2.16.840.1.536563.3.579.2. 593 1993 Unknown [id number] 2.16.840.1.620629.3.579.2. 593 1993 Unknown [id number] 2.16.840.1.299498.3.579.2. 593 1993 Unknown [id number] 2.16.840.1.446176.3.579.2. 593 1993 Unknown [id number] 2.16.840.1.386392.3.579.2. 593 1993 Unknown [id number] 2.16.840.1.666535.3.579.2. 593 1993 Unknown [id number] 2.16.840.1.755543.3.579.2. 727 1993 Unknown [id number] 2.16.840.1.944167.3.579.2. 727 1993 Unknown [id number] 2.16.840.1.904492.3.579.2. 727 1993 Unknown [id number] 2.16.840.1.499087.3.579.2. 1259 1993 Unknown [id number] 2.16.840.1.701263.3.579.2. 1259 1993 Unknown [id number] 2.16.840.1.627291.3.579.2. 1286 1959 Unknown [id number] Social History Date Type Detail Facility Start: 04-26-2022 End: 01-27-2023 Tobacco smoking status NHIS Never smoked tobacco [facility] Start: 04-26-2022 End: 01-27-2023 Tobacco use and exposure Smokeless tobacco non-user [facility] Start: 1995 Sex Assigned At Not on file [facility] Start: 04-14-2022 End: 04-24-2022 Exposure to SARS-CoV-2 (event) Not sure [facility] Start: 05-05-2023 End: 09-13-2024 Alcoholic beverage intake Ex-drinker (finding) [facility] Start: 05-05-2023 End: 09-13-2024 History of Social function [facility] Start: 05-05-2023 End: 09-13-2024 Tobacco use panel [facility] Clinical Notes 02-15-2022 to 03-30-2025 Avani Calle, BRIANNA - 12/21/2024 3:00 PM EDTSmarc Elizabeth, BRIANNA - 09/13/2024 2:50 PM ESTPatient InstructionsPatient InstructionsRosa Maria Israel MD - 05/16/2022 2:15 PM EDT Note Date & Type Note Facility 03-30-2025 Note mraSubjective Patient ID: Connie Salcido is a [...] Cuff Size: Adult) Pulse 77 Temp 36.7 ???C (98 ???F) Resp 17 Physical Exam Constitutional: Appearance: She [...] past 36 hours). No follow-ups on file. [facility] 03-21-2025 Note Received referral fo r Ventral Hernia. Called patient to schedule consult appt. Needs Pre-Reg. Images Requested. LMVM to call office back to schedule consult appt. [facility] 12-21-2024 History of Present illness Narrative Reason for Appointment: Patient ID: Connie Salcido is a 29 y.o. female who presents for Well Women Visit Patient presents today for Annual Exam. MEDICATIONS Current Outpatient Medications Medication Instructions estradiol (Climara) 0.05 MG/24HR 1 patch, Transdermal, Weekly Fioricet 50-300-40 MG capsule 1 capsule, Every 4 hours PRN phentermine (ADIPEX-P) 37.5 mg, Daily before breakfast ALLERGIES Allergies Allergen Reactions Meloxicam Headache Other Reaction(s): Other: See Comments headache Hydrocodone Other PROBLEMS Active Ambulatory Problems Diagnosis Date Noted [...] SYSTEMS Review of Systems: Review of Systems Constitutional: Negative. HENT: Negative. Eyes: Negative. Respiratory: Negative. Cardiovascular: Negative. Gastrointestinal: Negative. Genitourinary: Negative. Musculoskeletal: Negative. Skin: Negative. Neurological: Negative. All other systems reviewed and are negative. Hematological: Negative. Endocrine: Negative. Allergic/Immunologic: Negative. OBJECTIVE Objective: Physical Exam Constitutional: Appearance: Normal appearance. She is well-developed. Genitourinary: Vulva normal. Cardiovascular: Rate and Rhythm: Normal rate and [...] nursing note reviewed. Exam conducted with a product assurance engineer present. Vitals: Estimated body mass index is 56.14 kg/m as calculated from the following: Height as of 23: 5' 1 . Weight as of this encounter: 297 lb 1.9 oz. BP: 118/70 Patient's last menstrual period was 03/03/2023. ASSESSMENT & PLAN ICD-10-CM 1. Well woman exam with routine gynecological exam Z01.419 Pap Smear HPV DNA probe, amplified Annual Exam: Patient presents today for an annual exam. Patient states she is doing well and has no complaints. Pap was obtained without difficulty. Orders Placed This Encounter Procedures HPV DNA probe, amplified Follow Up: Patient is to return in one year for annual unless needed otherwise. Documented by Avani Calle LPN on behalf of: Noah Walton DO documented in this encounter [facility] 09-13-2024 History of Present illness Narrative Reason [...] nursing note reviewed. Exam conducted with a product assurance engineer present. Vitals: Estimated body mass index is [...] Noah Walton DO documented in this encounter [facility] 05-17-[address] - 05/17/2022 [...] Read Nutrition Guidelines section before next visit. [email or web address] -/scassets/files/org/[email or web address]/ guides/bmiguidebook-[email or web address] [email or web address]?la=en Pre-op goal weight: 276 pounds Protein needs: 70 gm per day Nutrition Monitoring & Evaluation: Weight loss of 1-2 pounds per week and adherence to above recommendations Criteria: Patient update and weight check Need for Follow up: 1 month, please call [phone] documented in this encounter [facility] 05-16-2022 Instructions Rosa Maria Israel MD - 05/16/2022 5:19 PM EDT INSTRUCTIONS: 1) Please contact me (Dr. Israel) if you have not heard about your test results within a few days after you had them done. Thank you: Contact information: [facility] [place] M[facility]/Attention: Dr. Israel [address] [place] [address] 2) Please check with your insurance company regarding cost/coverage of any tests ordered prior to having them completed. Colleen Salcido , Thank you for completing your visit today and we welcome you to the surgical program. We are sure that you will still have some additional questions and encourage you to reach out to your care provider via [employer] OR your Patient Navigator. Patient Navigators are assigned alphabetically by patient last name. The contact information for each Navigator is listed below. Last names A-E= Naga Last names F-L = Benito Last names M-R= VarshaFadia Last names S-Z= Jakianastacia Additionally, you may find many of the [...] free to ask for a hard copy. [email or web address] -/scassets/files/org/[email or web address]/ guides/bmiguidebook-[email or web address] hx?la=en Once you complete all of the requirements (testing, consultations, diet, etc) from each provider, please call [phone] and select option #5 to initiate insurance approval. Please note scheduling information It is important to keep track of your scheduled appointments to ensure successful completion of our surgical program. Any missed appointments can further delay your pre-surgical work-up. [facility] does offer an opt-in option for getting text message appointment reminders. Please follow the link below if you would like to opt into this service. [email or web address] As part of your [...] these tests. You may call your local [facility] to get an appointment. - Lab work- No appointment is needed for this, you may complete at any [facility] Laboratory. These are usually fasting labs, please be sure to fast (only water permitted) for 10-12 hours prior to the test. -Sleep Study- Please call [phone] or [phone] to get this appointment set up. -Sleep Medicine Consult- (Only needed if sleep study confirms sleep apnea) Please call [phone] or [phone] to schedule an appointment. Any testing that is completed outside of [facility] will need faxed to [phone]. We look forward to working with you on this journey, Rosa Maria Israel MD documented in this encounter [facility] 05-16-2022 Note HNO ID: [id number] Author: Rosa Maria Israel MD Service: ? [...] and diagnosed-she is on a list for iqqu-cbsfi-wwc sleep study was about Sochx: -single/: -children: yes -occupation: works at [employer] -tobacco use: non-smoker -ETOH: 2 per month ALL: See [facility] LABS: IMAGING: PROC: CARDIAC: MEDS: See [facility] PMH: -depression/anxiety-Prozac -has taken phentermine (1/2 [...] cardiac, valvular or vascular issues *no h/o VT, CAD, CHF, no cp/palpitations Respiratory: Denies any [...] LMP?//rash/discharge/p elvic pain/menstrual (more content not included)... [facility] 05-16-2022 Note HNO ID: [id number] Author: Micaela Cavazos RD Service: ? Author Type: Registered Dietitian Type: Progress Notes Filed: 05/17/2022 1:34 PM Note Text: [facility] Nutrition Therapy: Virtual Consult - [...] limited to ADL's although she occasionally walks. Wilson body weight: 128 lbs. Excess body weight: 167 lbs. Goal weight pre-op: 276 lbs. Protein needs estimated: 70 (1.2 g protein/kg IBW) Patient meets the National Institutes of Health guidelines for weight loss surgery and has [employer] therefore is required to complete 6 [...] Read Nutrition Guidelines section before next visit. https://[email or web address]/ -/scassets/files/org/bariatric/ guides/bmigui debook-[email or web address].ashx?la=en Pre-op goal weight: 276 pounds Protein (more content not included)... [facility] 05-16-2022 History of Present illness Narrative This [...] and diagnosed-she is on a list for rcvs-uamkt-cth sleep study was about Sochx: -single/: -children: yes -occupation: works at [employer] -tobacco use: non-smoker -ETOH: 2 per month [...] cardiac, valvular or vascular issues *no h/o VT, CAD, CHF, no cp/palpitations Respiratory: Denies any [...] which included preparing to see the patient, [id number] patient care, completing clinical documentation, obtaining and/or reviewing separately obtained history, counseling and educating the patient/family/caregiver, ordering medications, tests, or procedures, and care coordination (not separately reported). documented in this encounter [facility] 05-16-2022 History of Present illness Narrative [facility] Nutrition Therapy: Virtual Consult - [...] limited to ADL's although she occasionally walks. Wilson body weight: 128 lbs. Excess body weight: 167 lbs. Goal weight pre-op: 276 lbs. Protein needs estimated: 70 (1.2 g protein/kg IBW) Patient meets the National Institutes of Health guidelines for weight loss surgery and has [employer] Insurance therefore is required to complete 6 [...] Read Nutrition Guidelines section before next visit. https://[facility].org/ -/scassets/files/org/bariatric/ guides/bmiguidebook-[email or web address].as hx?la=en Pre-op goal weight: 276 pounds Protein needs: 70 gm per day Nutrition Monitoring & Evaluation: Weight loss of 1-2 pounds per week and adherence to above recommendations Criteria: Patient update and weight check Need for Follow up: 1 month, please call [phone] MNT Billing Type: Initial Assess/15 min 2 units Signed by: Micaela Cavazos RD documented in this encounter [facility] 04-26-2022 Note HNO ID: [id number] Author: Carlos Palencia MD Service: ? Author Type: Physician [...] addressed Pt appreciative of the care Carlos Palencia MD [facility] 03-21-2022 Note PROCEDURE: XR FOOT L T MIN 3 VIEWS COMPARISON: None. HISTORY: Pain in left foot FINDINGS: BONES:No fracture, acute abnormality, or significant arthropathy. SOFT TISSUES:Negative. No visible soft tissue swelling. EFFUSION:None visible. OTHER: Negative. IMPRESSION: No acute abnormality Electronically authenticated by: AYAD MALCOLM Date: 2022-03-21 19:14 [facility] 02-15-2022 Note PROCEDURE: XR ANKLE LT MIN 3 V COMPARISON: 02/07/2020 HISTORY: Pain of left ankle joint FINDINGS: BONES:No fracture, acute abnormality, or significant arthropathy. SOFT TISSUES:Negative. No visible soft tissue swelling. EFFUSION:None visible. OTHER: Negative. IMPRESSION: No acute abnormality Electronically authenticated by: AYAD MALCOLM Date: 2022-02-15 07:35 [facility] Evaluation note Diagnosis Abnormal weight gain- Primary Preop testing Preoperative examination, unspecified Morbid obesity with BMI of 50.0-59.9, adult ([facility]) Morbid obesity HANH (obstructive sleep apnea) Obstructive sleep apnea (adult) (pediatric) documented [facility] this [facility] Diagnosis Body mass index 50.0-59.9, adult ([facility])- Primary Body Mass Index 50.0-59.9, adult Dietary counseling and surveillance Dietary surveillance and counseling documented [facility] this [facility] Diagnosis Sweating abnormality Status post hysterectomy Acquired absence of both cervix and uterus Vaginal dryness Postmenopausal atrophic vaginitis documented in this encounter [facility] HealthcareEvaluation note* Diagnosis Well woman exam with routine gynecological exam Routine gynecological examination Sweating abnormality Status post hysterectomy Acquired absence of both cervix and uterus Vaginal dryness Postmenopausal atrophic vaginitis BV (bacterial vaginosis) Unspecified vaginitis and vulvovaginitis Yeast infection of the vagina Candidiasis of vulva and vagina documented in this encounter [facility] (narrative)* Outpatient Procedure (Routine) - Pending Review Specialty Diagnoses / Procedures Referred By Reg flores [facility] Diagnoses Abnormal weight gain Preop testing Morbid obesity with BMI of 50.0-59.9, adult (HCC) HNAH (obstructive sleep apnea) Procedures ECG COMPLETE ECG ROUTINE ECG W/LEAST 12 LDS W/I&R Rosa Maria Israel MD [address] [place] [address] [facility] [address] [place] [id number] Referral ID Status Reason Start Date Expiration Date Visits Requested Visits Authorized [id number] Pending Review Auto-Generat ed Referral 05/16/2022 05/14/2023 [address] [facility] Summary Purpose Family History No [...] any alcohol or drug abuse patient.[facility] the event this information is protected by the Federal Confidentiality of Alcohol and Drug Abuse Patient Records regulations: The Federal rules restrict any use of the information to criminally investigate or prosecute any alcohol or drug abuse patient.[facility] Reason for Visit (unrecogniz ed section and content) Reason Comments New Patient Reason Comments Patient Education Assessment Reason Comments Excessive Sweating Reason Comments Well Women Visit Care Teams (unrecognized sec tion and content) Claim Inspector Relationship Specialty Start Date End Date Noah Walton, DO [address] [place], [place] [id number] Referring AUTOMOTIVE ENGINEERING TECHNICIAN 04/23/22 Claim Inspector Relationship Specialty Start Date End Date Noah Walton, DO [address] [place] [address] Referring AUTOMOTIVE ENGINEERING TECHNICIAN 04/23/22 Claim Inspector Relationship Specialty Start Date End Date Valerie Donato MD [address] [place] [address] PCP - General Family Medicine 01/27/23 Claim Inspector Relationship Specialty Start Date End Date Valerie Donato MD [address] [place] [address] PCP - General Family Medicine 01/27/23 Claim Inspector Relationship Specialty Start Date End Date Valerie Donato MD [address] [place] [address] PCP - General Family Medicine 01/27/23 Claim Inspector Relationship Specialty Start Date End Date Valerie Donato MD [address] [place] [address] PCP - General Family Medicine 01/27/23 Claim Inspector Relationship Specialty Start Date End Date Valerie Donato MD [address] [facility] [place] [address] PCP - General Family Medicine 01/27/23 INFORMATION SOURCE (unrecogn ized section and content) DATE CREATED AUTHOR 05/18/2022 [facility] DATE CREATED AUTHOR AUTHOR'S ORGANIZ ATION 01/01/2023 [facility] DATE CREATED AUTHOR AUTHOR'S ORGANIZ ATION 01/08/2024 [facility] DATE CREATED AUTHOR AUTHOR'S ORGANIZ ATION 12/23/2024 [facility] DATE CREATED AUTHOR AUTHOR'S ORGANIZ ATION 04/03/2025 [facility] DATE CREATED AUTHOR AUTHOR'S ORGANIZ ATION 04/14/2025 [facility] FOR RECORDS PERTAINING TO PATIENTS WHO ARE [...] BE BASED ON THE PRIMARY CLINICAL RECORDS. [facility]. provides no warranty or guarantee of the accuracy or completeness of information in this document.
--- OUTSIDE RECORDS SUMMARY | 2025-05-01 13:30 | XMS_ITS | Encounter Summary ---
Author Organization [facility] tem Address [id number] [address] [place] [address] Care Team Providers Care Beater Operator Name Role Phone Rojelio Donato MD Primary Care Provider [phone] Encounter Details Date Type Department Care Team (Late st Contact Info) Description 03/10/2020 Documentation [facility] [address] [place] [id number] Fani Weiss RN Social History Tobacco Use Types Packs/Day Years Used Date Smoking Tobacco: Never Smokeless Tobacco: Never Alcohol Use Standard Drinks/Week Comments Not Currently 0 (1 standard drink = 0.6 oz pur e alcohol) Childcare Answer Date Recorded Childcare Unknown 02/17/2019 Employment Answer Date Recorded Employment Unknown 02/17/2019 Comments Yes Sex and Gender Information Value Date Recorded Sex Assigned at Not on file Legal Sex Female 11:48 AM EDT Gender Identity Not on file Sexual Orientation Not on file COVID-19 Exposure Response Date Recorded In the last month, have you been in contact with someone who was confirmed or suspected to have Coronavirus / COVID-19? No / Unsure 03/09/2020 8:51 PM EDT documented as of this encounter Nursing Notes * Fani Weiss RN - 03/10/2020 10:55 AM EDT Called patient to schedule OB Screening COVID Testing. Patient states she was already called and set up with an appointment at [facility] on 03/14/20. documented in this encounter Plan of Treatment Not on file documented as of this encounter Visit Diagnoses Not on filedocumented in this encounter Additional Health Concerns Infection Onset Date Last Indicated Resolved Time MRSA Comment:RT ARM (05/08/09) Infection converted via [employer] from [employer] system information 05/12/2009 05/12/2009 05/04/2021 11:19 PM EDT COVID-19 Rule-Out Comment:OB Screening- Patient asymptomatic. 03/10/2020 03/14/2020 03/16/2020 10:47 AM EDT documented as of this encounter Care Teams Beater Operator Relationship Specialty Start Date End Date Rojelio Donato MD PCP - General Family Medicine 01/24/20 documented as of this encounter
--- OUTSIDE RECORDS SUMMARY | 2025-05-01 13:30 | XMS_ITS | Encounter Summary ---
Author Organization [facility] Address [address] [facility] [place] [address] Care Team Providers Care Events Assistant Name Role Phone Rojelio Donato MD Primary Care Provider [phone] Encounter Details Date Type Department Care Team (Late st Contact Info) Description 10/14/2023 Clinisync Result Encounter [facility] External Department Unsolicited Carlito Walton DO [address] [place] [address] Social History Tobacco Use Types Packs/Day Years [...] 12/28/2025 4:00 PM EDT Office Visit [facility] [address] [place] [phone] Carlito Walton DO [address] [place] [address] documented as of this encounter Procedures Procedure Name Priority Date/Time Associated Diagnosis Comments US PELVIS W/ TRANSVAGINAL 10/14/2023 12:52 PM EST documented in this encounter Results * US PELVIS W/ TRANSVAGINAL (10/14/2023 12:52 PM EST) Anatomical Region Laterality Modality Other 10/14/2023 12:5 2 PM EST Narrative 10/14/2023 12:55 PM EST [address] [address] Ultrasound Report Signed Patient: ABDIRAHMAN SALCIDO MR#: [id number] : 1995 Acct:[id number] Age/Sex: 27 / F ADM Date: 10/14/23 Loc: [facility] Attending Dr: Carlito Walton D.O. Ordering Physician: Carlito Walton D.O. Date of Service: 10/14/23 Procedure(s): US pelvis w/ transvaginal Accession Number(s): [id number] cc: Carlito Walton D.O.; Rojelio Donato M.D. [place] [id number] Patient Name: ABDIRAHMAN SALCIDO MRN: [id number] date: 1995 Sex: F Assigned Patient Location: [facility] Current Patient Location: [facility] Accession/Order Number: [id number] Exam Date: 10/14/2023 10:55 Report Date: 10/14/2023 [...] By: Ayad Coughlin M.D. Signed By: 10/14/23 125 DD/ 125 TD/TT: Marine Erector: Procedure Note Radiology, Radiologist, - 10/14/2023 [place] [address] Ultrasound Report Signed Patient: ABDIRAHMAN SALCIDO MMR#: [id number] : 1995Acct:[id number] Age/Sex: 27 / FADM Date: 10/14/23 Loc: [facility] Attending Dr: Carlito Walton D.O. Ordering Physician: Carlito Walton D.O. Date of Service: 10/14/23 Procedure(s): US pelvis w/ transvaginal Accession Number(s): [id number] cc: Carlito Walton D.O.; Rojelio Donato M.D. [place] [id number] Patient Name: ABDIRAHMAN SALCIDO MRN: [id number] date: 1995 Sex: F Assigned Patient Location: [facility] Current Patient Location: [facility] Accession/Order Number: [id number] Exam Date: 10/14/2023 10:55 Report Date: 10/14/2023 [...] M.D. Signed By:10/14/23 125 DD/ 1252 TD/TT: Marine Erector: us Carlito Isabelle DO [facility] Final Result documented in this encounter Visit Diagnoses Not on filedocumented in this encounter Care Teams Events Assistant Relationship Specialty Start Date End Date Rojelio Donato MD PCP - General Family Medicine 01/27/23 documented as of this encounter
--- OUTSIDE RECORDS SUMMARY | 2025-05-01 13:30 | XMS_ITS | Encounter Summary ---
Author Organization [facility] Address [address] [place] [address] Care Team Providers Care Web Site Manager Name Role Phone Rojelio Donato MD Primary Care Provider [phone] Encounter Details Date Type Department Care Team (Late Contact Info) Description 03/20/2023 Abstract [facility] PAYAN [address] [place], [place] [address] [address] Noah Walotn DO [address] [place], [place] [address], [place] [address] Social History Tobacco Use Types Packs/Day Years [...] PM EDT Office Visit [facility] [address] [facility] [place] [address] Noah Walton DO [facility] [address] [place], [facility] documented as of this encounter Visit Diagnoses Not on filedocumented in this encounter Care Teams Web Site Manager Relationship Specialty Start Date End Date Rojelio Donato MD PCP - General Family Medicine 01/27/23 documented as of this encounter
--- OUTSIDE RECORDS SUMMARY | 2025-05-01 13:31 | XMS_ITS | Clinical Summary ---
Author Organization [facility] Address [id number] [address] [place] [address] Care Team Providers Care Golf [employer] Head Inspector Name Role Phone Rojelio Donato MD Primary Care Provider [phone] Allergies Active Allergy Reactions Criticality Noted Date Comments Meloxicam Headache 11/02/2019 Medications cyproheptadine (PERIACTIN) 4 mg tablet Take 4 mg by mouth once daily at bedtime. Take half pill Active magnesium oxide (MAG-OX) 400 mg tablet Take 400 mg by mouth 2 (two) times a day. Active vit-iron fum-folic ac 65 mg iron- 1 mg tablet Take 1 tablet by mouth daily. Active sertraline (ZOLOFT) 100 mg tablet Take 50 mg by mouth daily. Active docusate sodium (COLACE) 100 mg capsule Take 1 capsule (100 mg total) by mouth 2 (two) times a day. 14 capsule 0 Active Additional Information Patient not taking.Reported on 03/31/2020 ibuprofen (ADVIL,MOTRIN) 800 mg tablet Take 1 tablet (800 mg total) by mouth every 8 (eight) hours as needed (cramping). 60 tablet 0 Active Additional Information Patient not taking.Reported on 03/31/2020 acetaminophen (TYLENOL) 325 mg tablet Take 650 mg by mouth every 6 (six) hours as needed for pain. Active Active Problems Problem Noted Date Diagnosed Date Depression affecting 03/11/2020 Overview (03/11/2020): Currently on Zoloft 100mg daily Rh negative state in antepartum period, third tr imester 03/09/2020 Overview (03/09/2020): 01/21/20 type and screen: A Negative Rhogam administered 01/21/20 Request for sterilization 03/09/2020 Overview (03/09/2020): Consent signed 02/28/20 RLTCS and BTL scheduled for 03/17/20 Maternal care for other (yasmin pected) abnormality and damage, not applicable or unspecified 03/09/2020 History of section 03/02/2020 Overview (03/02/2020): Op note reviewed, pLTCS. Scanned in media tab Desires repeat . TOLAC form signed care in third trimester 03/02/2020 Overview (03/11/2020): Transfer of care from Dr. Calderón at 35w6d ANEL of based on 8w3d US completed on 08/24/2020 GC/CT negative Hep C/HepBSAg/HIV/RPR neg GC/CT neg Varicella/rubella immune Rh neg/neg Hgb electrophoresis negative HbA1c 4.8 Pap normal (hx of LSIL and/or ASCUS based off scanned records) 3hr GTT 85/160/126/82 Class 3 severe obesity in adult 03/01/2020 Overview (03/01/2020): 1hr GCT 148 - 3hr GTT Chronic hypertension affecting 020 Overview (03/11/2020): S/p MFM consult: Baby ASA daily Baseline labs: 24 hour urine collection 194 milligrams of protein on growth scans every 4 weeks after 28 weeks NST and CISCO weekly after 32 weeks Delivery timing: at or after 38 weeks due to chronic hypertension not on medications Pt desires rLTCS, currently scheduled for 38 weeks. Observe for development of preeclampsia. records were reviewed 24 hour urine collection 01/21/2020 393 mg protein - this was noted after re-review of records on 03/11/2020 Encounters Date Type Department Care Team Description 04/11/2025 Travel from Last 3 Months Immunizations Immunization Administration Dates Next Due DTaP, Unspecified 06/16/1998, 5,10/31/1994,1993,03/18/1994 HPV Quadrivalent 05/10/2009,10/18/2008, 8 Hep A, 2 Dose 10/18/2008,01/01/2008 Hep B, Adolescent or Pediatric 05/02/1995,1994,03/18/1994 HiB 05/02/1995, 5,07/26/1994,1993 Influenza (IM) Preservative Free 06/27/2009 Influenza, Im Trivalent Preservative 10/18/2008, 07/13/2004 MMR 03/02/1999,05/02/1995 Meningococcal MCV4P 01/01/2008 Polio, Unspecified 06/16/1998, 5,10/31/1994,1993,03/18/1994 Rho (D) IG IM 01/21/2020 Rho (D) Immune Globulin 03/18/2020 Tdap 04/24/2007 Family History Medical History Relation Name Comments Congenital heart disease Daughter Cancer Maternal Grandmother Arthritis Mother Blood Clots Mother Depression Mother Heart disease Mother Hyperlipidemia Mother Relation Name Status Comments Daughter Maternal Grandmother Mother Social History Tobacco Use Types Packs/Day Years Used Date Smoking Tobacco: Never Smokeless Tobacco: Never Alcohol Use Standard Drinks/Week Comments Not Currently 0 (1 standard drink = 0.6 oz pur e alcohol) Niotaze Depression Scale Answer Date Recorded Niotaze Depression Scale Total 7 03/31/2020 The thought of harming myself has occurred to me . Hardly ever 03/31/2020 Childcare Answer Date Recorded Childcare Unknown 02/17/2019 Employment Answer Date Recorded Employment Unknown 02/17/2019 Purpose - Life Answer Date Recorded Purpose and direction in life Unknown Comments No Sex and Gender Information Value Date Recorded Sex Assigned at Not on file Legal Sex Female 11:48 AM EDT Gender Identity Not on file Sexual Orientation Not on file Last Filed Vital Signs Vital Sign Reading Time Taken Comments Blood Pressure 122/72 03/31/2020 10:41 AM EDT Pulse 86 03/24/2020 10:22 PM EDT Temperature 36.9 C (98.5 F) 03/31/2020 10:41 AM EDT Respiratory Rate 20 03/24/2020 10:22 PM EDT Oxygen Saturation 99% 03/24/2020 10:22 PM EDT Inhaled Oxygen Concentration - - Weight 125.4 kg (276 lb 8 oz) 03/31/2020 10:41 A M EDT Height 154.9 cm (5' 1 ) 03/31/2020 10:41 AM EDT Body Mass Index 52.24 03/31/2020 10:41 AM EDT Plan of Treatment Health Maintenance Due Date Last Done Comments Tobacco Screening 2005 Adult BMI Screening 2011 Pap Smear 2014 DTaP,Tdap and Td Vaccines (7 - Td or Tdap) 04/24/2017 04/24/2007, 06/16/1998, 05/02/1995, Additional history exists Depression Screening 03/31/2021 03/31/2020 COVID-19 Vaccine (2023-2 5 season) 2024 06/18/2022, 12/03/2021, 10/25/2021 Influenza Vaccine 05/09/2025 06/18/2022, , 10/18/2008, Additional history exists Medical Devices Not on file Procedures Procedure Name Priority Date/Time Associated Diagnosis Comments PROTIME & INR Routine 04/11/2025 3:49 PM EDT 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 BASIC METABOLIC PANEL Routine 04/11/2025 3:49 PM EDT 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 CBC WITH AUTO DIFFERENTIAL Routine 04/11/2025 3:49 PM EDT 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 MRSA PCR NASAL SWAB Routine 04/11/2025 3 :49 PM EDT 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 from Last 3 Months Results * Mrsa Pcr nasal swab (04/11/2025 3:49 PM EDT) MRSA PCR NASAL Negative Negative 04/11/2025 11:56 PM EDT [facility] Swab 04/11/2025 3:49 PM EDT 04/11/2025 3:51 PM EDT us Tk Herrera MD MICROBIOLOGY - GENERAL ORDERABLE S Final Result [facility] [address] [place] [address], [place] [phone] * CBC auto differential (04/11/2025 3:49 PM EDT) WBC 7.8 4 - 11 x10E9/L 04/11/2025 11:09 PM EDT [facility] RBC Count 4.67 3.8 - 5.2 X10E12/L 04/11/2025 11:09 PM EDT [facility] Hemoglobin 14.0 11.7 - 15.5 g/dL 04/11/2025 11:09 PM EDT [facility] Hematocrit 42.3 35 - 47 % 04/11/2025 11:09 PM EDT [facility] MCV 91 80 - 100 fL 04/11/2025 11:09 PM EDT [facility] MCH 29.9 27 - 34 pg 04/11/2025 11:09 PM EDT [facility] MCHC 33.1 32 - 36 g/dL 04/11/2025 11:09 PM EDT [facility] RDW 13.5 11.5 - 15 % 04/11/2025 11:09 PM EDT [facility] Platelet Count 250 150 - 450 X10E9/L 04/11/2025 11:09 PM EDT [facility] MPV 8.5 7 - 12 fL 04/11/2025 11:09 PM EDT [facility] Neutrophils % 62.7 % 04/11/2025 11:09 PM EDT [facility] Lymphocytes % 33.3 % 04/11/2025 11:09 PM EDT [facility] Monocytes % 3.1 % 04/11/2025 11:09 PM EDT [facility] Eosinophils % 0.3 % 04/11/2025 11:09 PM EDT [facility] Basophils % 0.6 % 04/11/2025 11:09 PM EDT [facility] Neutrophils Absolute (A) 4.9 1.5 - 6.6 10*3/uL 04/11/2025 11:09 PM EDT [facility] Lymphocytes Absolute 2.6 1.0 - 3.5 10*3/uL 04/11/2025 11:09 PM EDT [facility] Monocytes Absolute 0.2 0.0 - 0.9 10*3/uL 04/11/2025 11:09 PM EDT [facility] Eosinophils Absolute 0.0 0.0 - 0.4 10*3/uL 04/11/2025 11:09 PM EDT [facility] Basophils Absolute 0.0 0.0 - 0.2 10*3/uL 04/11/2025 11:09 PM EDT [facility] Differential Type AUTOMATED DIFFERENTIAL 04/11/2025 11:09 PM EDT [facility] Blood Venous blood / Unknown Venipuncture / Unknown 04/11/2025 3:49 PM EDT 04/11/2025 3:51 PM EDT us Tk Herrera MD LAB BLOOD ORDERABLES Final Resul t [facility] [address] [place] [address], [place] [phone] * Protime & INR (04/11/2025 3:49 PM EDT) PROTIME 11.7 9.8 - 13.2 sec 04/11/2025 10:54 PM EDT [facility] INR 1.0 0.9 - 1.2 04/11/2025 10:54 PM EDT [facility] Blood Venous blood / Unknown Venipuncture / Unknown 04/11/2025 3:49 PM EDT 04/11/2025 3:51 PM EDT us Tk Herrera MD LAB BLOOD ORDERABLES Final Resul t [facility] [address] [place] [address], [place] [phone] * Basic Metabolic Panel (04/11/2025 3:49 PM EDT) SODIUM 141 134 - 146 mmol/L 04/11/2025 11:21 PM EDT [facility] POTASSIUM 3.7 3.5 - 5.0 mmol/L 04/11/2025 11:21 PM EDT [facility] CHLORIDE 106 98 - 109 mmol/L 04/11/2025 11:21 PM EDT [facility] CARBON DIOXIDE 27 22 - 32 mmol/L 04/11/2025 11:21 PM EDT [facility] ANION GAP 8 5 - 15 mmol/L 04/11/2025 11:21 PM EDT [facility] BLOOD UREA NITROGEN 8 5 - 23 mg/dL 04/11/2025 11:21 PM EDT [facility] CREATININE 0.69 0.40 - 1.00 mg/dL 04/11/2025 11:21 PM EDT [facility] Comment:METHOD TRACEABLE TO IDMS STANDARD GLUCOSE 91 65 - 99 mg/dL 04/11/2025 11:21 PM EDT [facility] CALCIUM 8.7 8.5 - 10.5 mg/dL 04/11/2025 11:21 PM EDT [facility] EGFR Non-Race Dependent >90 >=60 ml/min/1.7 3sq.m 04/11/2025 11:21 PM EDT [facility] Comment: Reported eGFR is based on the CKD-EPI 2020 equation that does not use a race coefficient. Blood Venous blood / Unknown Venipuncture / Unknown 04/11/2025 3:49 PM EDT 04/11/2025 3:51 PM EDT us Tk Herrera MD LAB BLOOD ORDERABLES Final Resul t [facility] [address] [place] [address], [place] [phone] from Last 3 Months Insurance [employer] Advance Directives * Full Code (Latest Code Status on File) Date Activated Date Inactivated Comments 03/17/2020 9:05 AM 03/19/2020 1:38 PM * Full Code Date Activated Date Inactivated Comments 03/09/2020 9:23 PM 03/10/2020 1:18 PM Care Teams Golf Club Head Inspector Relationship Specialty Start Date End Date Rojelio Donato MD PCP - General Family Medicine 01/24/20
--- OUTSIDE RECORDS SUMMARY | 2025-05-01 13:31 | XMS_ITS | Patient Health Record ---
Author Organization The [facility] in [place] Address [address] [place] [address] Care Team Providers Care Flag Car Driver Name Role Phone Caesar Donato Primary Care Provider [phone] Mickey Price [phone] Allergies Allergen (clinical drug ingredient) Drug/Non Drug Allergy documented on EMR Reaction Allergy Type Onset Date Status meloxicam Meloxicam headache Drug Allergy Active Results Component Value Reference Range Notes COVID-19, Flu A+B IH Reviewed date:12/26/2024 07:31:03 PM Interpretation: Performing Lab: Notes/Report: COVID - FLU A + FLU B - Control + INFLUENZA A AND B AG Reviewed date:10/06/2024 08:50:29 PM Interpretation: Performing Lab: Notes/Report: [facility] , Influenza Virus A Antigen Negative below the detection limit of the test. Negative for Flu A protein antigen. Infection due to Flu A cannot be ruled out. Flu A antigen in the sample may be Influenza Virus B Antigen Negative Negative for Flu B protein antigen. Infection due to Flu B below the detection limit of the test. cannot be ruled out. Flu B antigen in the sample may be Performing Lab: see note ML - [facility] LB SARS-CoV-2 Ag* Reviewed date:10/06/2024 08:50:29 PM Interpretation: Performing Lab: Notes/Report: [facility] , SARS-CoV-2 Ag NEGATIVE NEGATIVE [...] of Covid-19 under section 564(b)(1) of the This test has not been FDA cleared or approved, but has been (EUA) for use by authorized laboratories certified under Act, 21 U.S.C. 360bbb-3(b)(1), unless the declaration is emergency use of in vitro diagnostic tests for detection terminated or authorization is revoked sooner. Performing Lab: see note ML - [facility] LB HCG Qualitative* Reviewed date:10/06/2024 08:50:29 PM Interpretation: Performing Lab: Notes/Report: [facility] , HCG Qualitative NEGATIVE NEGATIVE Performing Lab: see note ML - [facility] LB CBC AUTO DIFF Reviewed date:03/16/2025 06:47:01 PM Interpretation: Performing Lab: Notes/Report: [facility] , White Blood Count 8.7 4.0-11.0 10 3/uL Red Blood Count 4.63 4.20-5.40 10 6/uL Hemoglobin 14.0 12.0-16.0 g/dL Hematocrit 42.0 36.0-48.0 % Mean Corpuscular Volume 90.7 81.0-99.0 fL Mean Corpuscular Hemoglobin 30.2 26.7-34.0 pg Mean Corpuscular HGB Conc 33.3 29.9-35.2 g/dL Red Cell Distribution Width 12.5 11.0-15.0 % Platelet Count 246 150-450 10 3/uL Mean Platelet Volume 9.7 9.5-13.5 fL Neutrophils Percent Auto 65.2 43.0-75.0 % Lymphocytes Percent Auto 26.9 20.5-60.0 % Monocytes Percent Auto 6.8 1.7-12.0 % Eosinophils Percent Auto 0.7 0.9-7.0 % Basophils Percent Auto 0.2 0.2-2.0 % Immature Granulocytes Pct Auto 0.2 0.0-0.5 % Neutrophils Absolute Auto 5.7 1.4-6.5 10 3/uL Lymphocytes Absolute Auto 2.4 1.2-3.8 10 3/uL Monocytes Absolute Auto 0.6 0.3-0.8 10 3/uL Eosinophils Absolute Auto 0.1 0.0-0.7 10 3/uL Basophils Absolute Auto 0.0 0.0-0.1 10 3/uL Immature Granulocytes Abs Auto 0.02 0.00-0.03 10 3/uL Performing Lab: see note ML - [facility] UA RANDOM W or MICROSCOPIC Reviewed date:03/16/2025 06:47:02 PM Interpretation: Performing Lab: Notes/Report: [facility] , Color Urine YELLOW YELLOW Clarity Urine CLEAR CLEAR Specific [place] Urine 1.025 1.005-1.025 pH Urine 6.0 5.0-9.0 Protein Urine NEGATIVE NEG/TRACE mg/dL Glucose Urine UA NEGATIVE NEGATIVE mg/dL Bilirubin Urine NEGATIVE NEGATIVE Ketones Urine TRACE NEGATIVE mg/dL Blood Urine SMALL NEGATIVE Nitrite Urine NEGATIVE NEGATIVE Urobilinogen Urine 1.0 0.2-1.0 EU/dL Leukocyte Esterase Urine NEGATIVE NEGATIVE WBC Urine 0-2 NONE SEEN #/HPF RBC Urine 5-10 0-2 #/HPF Bacteria Urine TRACE NONE SEEN #/HPF Mucus Urine NONE SEEN NONE SEEN Squamous Epithelial Cell Urine FEW NONE/RARE #/LPF Crystals Seen? None Seen None Seen #/HPF Cast Seen? NONE SEEN NONE SEEN #/LPF Urine Culture Indicated NO Performing Lab: see note ML - [facility] LB PROF CHEM 8 (BAS METB) Reviewed date:03/16/2025 06:47:02 PM Interpretation: Performing Lab: Notes/Report: [facility] , Sodium 140 136-145 mmol/L Potassium 3.3 3.5-5.1 mmol/L Chloride 105 98-107 mmol/L Carbon Dioxide 28.6 21.0-32.0 mmol/L Anion Gap 9.7 Glucose 92 74-106 mg/dL Blood Urea Nitrogen 13.0 7.0-18.0 mg/dL Creatinine 0.69 0.55-1.02 mg/dL Estimated GFR ( Kajal >60 >=60 mL/min/1.73m 2 Estimated GFR (Non- Zehra >60 >=60 mL/min/1.73m 2 BUN Creatinine Ratio 18.8 Calcium 8.5 8.5-10.1 mg/dL Performing Lab: see note ML - [facility] LB LIVER PROFILE Reviewed date:03/16/2025 06:47:01 PM Interpretation: Performing Lab: Notes/Report: [facility] , Bilirubin Total 0.4 0.2-1.0 mg/dL Bilirubin Direct 0.1 0.0-0.2 mg/dL Aspartate Amino Transferase 32 15-37 U/L Alanine Aminotransferase 51 14-59 U/L Alkaline Phosphatase 73 46-116 U/L Total Protein 7.4 6.4-8.2 g/dL Albumin Level 3.4 3.4-5.0 g/dL Globulin 4.0 Albumin Globulin Ratio 0.9 Performing Lab: see note ML - [facility] LB LIPASE Reviewed date:03/16/2025 06:47:01 PM Interpretation: Performing Lab: Notes/Report: [facility] , Lipase 31.0 16.0-77.0 U/L Performing Lab: see note ML - [facility] LB AMYLASE Reviewed date:03/16/2025 06:47:01 PM Interpretation: Performing Lab: Notes/Report: [facility] , Amylase 26 25-115 U/L Performing Lab: see note ML - [facility] LB IGP,Aptima HPV,Age Gdln Reviewed date:12/26/2024 07:31:03 PM Interpretation: Performing Lab: Notes/Report: OSMAN VAGINA [facility] , Age Gdln ACOG Testing Note . Martha Chen MD, Clinician Provided Cytology Information [address] [facility], [place] [address] L-Low Normal,H-High Normal,LL-Alert Low,HH-Alert High FLAG LEGEND: TESTS RESULT FLAG UNITS REF RANGE LAB Age Algo ACOG Ofe... 30-65 01 01 =G [facility] Performed at: <-Panic Low,>-Panic High,A-Abnormal,AA-Crit ical Abnormal No. of containers..01 ThinPrep Vial Source.............Vagi na IGP, Aptima HPV, rfx 16/18,45 Note . HPV Genotype Reflex Note 02 <-Panic Low,>-Panic High,A-Abnormal,AA-Crit ical Abnormal uterine cervix. It is not a diagnostic procedure and Jessica Bo, Predatory Animal Trapper (ASCP) should not be used as the sole means of detecting cervical Test Methodology: Note 02 Satisfactory for evaluation. This liquid based ThinPrep(R) pap test was screened with Specimen adequacy: 02 FLAG LEGEND: L-Low Normal,H-High Normal,LL-Alert Low,HH-Alert High detection of premalignant and malignant conditions of the [address] [place] [address], [place] [address] The Pap smear is a screening test designed to aid in the DIAGNOSIS: 02 Martha Chen MD, Note: Note 02 . 02 occur. NEGATIVE FOR INTRAEPITHELIAL LESION OR MALIGNANCY. Criteria not met, HPV Genotype not performed. cancer. Both false-positive and false-negative reports do Performed at: 02 [facility] TEST[facility] RESULT FLAG UNITS REF RANGE LAB the use of an image guided system. Performed by: 02 HPV Aptima Negative Negative risk HPV types (16,18,31,33,35,39,45,5 1,52,56,58,59,66,68) Performed at: [facility] [address] [place], [place] [id number] This nucleic acid amplification test detects fourteen high- Engineering Team Supervisor: Martha Chen MD, Phone: [phone] [address] [place] [phone] without differentiation. Engineering Team Supervisor: Martha Chen MD, Phone: [phone] Performed at: =[facility] Performing Lab: see note [facility] LB CT head/brain wo con Reviewed date:10/06/2024 08:50:29 PM Interpretation: Performing Lab: Notes/Report: Source Facility: [place] [address] CT Scan Report Signed Patient: CONNIE SALCIDO MR#: [id number] : 1995 Acct:[id number] Age/Sex: 28 / F ADM Date: 10/06/24 Loc: ER Attending Dr: Ordering Physician: Jaki Whitman Date of Service: 10/06/24 Procedure(s): CT head/brain wo con Accession Number(s): [id number] cc: Rojelio Donato M.D. [place] [address] Patient Name: CONNIE SALCIDO MRN: [id number] date: 1995 Sex: F Assigned Patient Location: ER Current Patient Location: ER Accession/Order Number: [id number] Exam Date: 10/06/2024 17:42 Report Date: 10/06/2024 [...] could be obtained. Electronically authenticated by: AKIN BARRETO Date: 10/06/2024 18:45 Dictated By: Akin Barreto M.D. Signed By: 10/06/241847 DD/ 44 TD/TT: Banking Services Advisor: [place] [address] CT Scan Report Signed Patient: NILTON SALCIDO MR#: [id number] : 1995 Acct:[id number] Age/Sex: 28 / F ADM Date: 10/06/24 Loc: ER Attending Dr: Ordering Physician: Jaki Whitman Date of Service: 10/06/24 Procedure(s): CT head/brain wo con Accession Number(s): [id number] cc: Rojelio Donato M.D. [place] [address] Patient Name: CONNIE SALCIDO MRN: [id number] date: 1995 Sex: F Assigned Patient Location: ER Current Patient Location: ER Accession/Order Number: [id number] Exam Date: 10/06/2024 17:42 Report Date: 10/06/2024 [...] could be obtained. Electronically authenticated by: AKIN BARRETO Date: 10/06/2024 18:45 Dictated By: Ashlie Barreto M.D. Signed By: 10/06/241847 DD/ 44 TD/TT: Banking Services Advisor: PROF PRAVEEN Lee ([facility]) Reviewed date:10/06/2024 08:50:29 PM Interpretation: Performing Lab: Notes/Report: [facility] , Sodium 138 136-145 mmol/L Potassium 3.3 [...] Performing Lab: see note ML - [facility] LB CBC AUTO DIFF Reviewed date:10/06/2024 08:50:29 PM Interpretation: Performing Lab: Notes/Report: [facility] , White Blood Count 9.8 4.0-11.0 10 [...] Performing Lab: see note ML - [facility] LB UA DIP NONAUTO WO MICRO (810 02) - IN OFFICE Reviewed date:03/16/2025 06:47:02 PM Interpretation: Performing Lab: Notes/Report: COLOR yellow CLARITY cloudy GLUCOSE n BILIRUBIN n KETONE n SPECIFIC GRAVITY 1.020 BLOOD 250++ PH 5 PROTEIN trace UROBILINOGEN n NITRITE n LEUKOCYTE ESTERASE ++ UA DIP NONAUTO WO MICRO (810 02) - IN OFFICE Reviewed date:01/12/2025 03:48:29 PM Interpretation: Performing Lab: Notes/Report: COLOR Yellow CLARITY Dark GLUCOSE Neg BILIRUBIN Neg KETONE Neg SPECIFIC GRAVITY 1.030 BLOOD Neg PH 5 PROTEIN Neg UROBILINOGEN Neg NITRITE Neg LEUKOCYTE ESTERASE ++ CT abdomen pelvis w con Reviewed date:03/16/2025 07:00:23 PM Interpretation: Performing Lab: Notes/Report: Source Facility: [place] [address] CT Scan Report Signed Patient: CONNIE SALCIDO MR#: [id number] : 1995 Acct:[id number] Age/Sex: 29 / F ADM Date: 03/16/25 Loc: ER Attending Dr: Ordering Physician: Kiki Abrams M.D. Date of Service: 03/16/25 Procedure(s): CT abdomen pelvis w con Accession Number(s): [id number] cc: Rojelio Donato M.D. [place] [address] Patient Name: CONNIE SALCIDO MRN: [id number] date: 1995 Sex: F Assigned Patient Location: ER Current Patient Location: ER Accession/Order Number: [id number] Exam Date: 03/16/2025 18:47 Report Date: 03/16/2025 18:51 At the request of: KIKI ABRAMS MD Procedure: CT abdomen pelvis w con CT ABDOMEN AND PELVIS WITH INTRAVENOUS CONTRAST: CLINICAL HISTORY: Upper abdominal pain COMPARISON: 08/14/2023 TECHNIQUE: Spiral images were obtained through the abdomen and pelvis following the administration of intravenous contrast. This CT exam was performed using one or more following dose reduction techniques: Automated exposure control, adjustment of the mA and/or kV according to patient size, or use of iterative reconstruction technique. FINDINGS: Lung Bases: [No focal opacity] Organs:Gallbladder absent. Otherwise the liver, spleen, adrenals, kidneys, and pancreas are unremarkable.[ GI: Mild retained stool throughout the colon. No bowel obstruction. Appendix unremarkable. Colonic diverticulosis.[ Pelvis:[Bladder unremarkable. Uterus absent. No suspicious adnexal mass.] Suspected left ovarian follicle. Peritoneum/Retroperitoneum:No free air or free fluid. Aorta normal caliber. No diastases or psoas muscle with fat-containing ventral abdominal hernia noted measuring 4.7 cm.[ Abd wall/Bones:Straightening normal lordosis. Vertebral heights maintained.[ CT/CT abdomen pelvis w con IMPRESSION: Negative acute inflammatory process or bowel obstruction. Ventral hernia containing fat noted. Impression dictated by: Silver Abbasi M.D. 03/16/2025 6:51 PM Dictation Location: [place] [address] Electronically authenticated by: [id number] Y Date: 03/16/2025 18:51 Dictated By: Silver Abbasi M.D. Signed By: 03/16/251852 DD/ 50 TD/TT: Banking Services Advisor: [place] [address] CT Scan Report Signed Patient: NILTON SALCIDO MR#: [id number] : 1995 Acct:[id number] Age/Sex: 29 / F ADM Date: 03/16/25 Loc: ER Attending Dr: Ordering Physician: Kiki Abrams M.D. Date of Service: 03/16/25 Procedure(s): CT abdomen pelvis w con Accession Number(s): [id number] cc: Rojelio Donato M.D. [place] [id number] Patient Name: CONNIE SALCIDO MRN: [id number] date: 1995 Sex: F Assigned Patient Location: ER Current Patient Location: ER Accession/Order Number: [id number] Exam Date: 03/16/2025 18:47 Report Date: 03/16/2025 18:51 At the request of: KIKI ABRAMS MD Procedure: CT abdome n pelvis w con CT ABDOMEN AND PELVI S WITH INTRAVENOUS CONTRAST: CLINICAL HISTORY: Upper abdominal pain COMPARISON: 08/14/2023 TECHNIQUE: Spiral images were obtained through the abdomen and pelvis following the administration of intravenous contrast. This CT exam was performed using one or more following dose reduction techniques: Automated exposure control, adjustment of the mA and/or kV according to patient size, or use of iterative reconstruction technique. FINDINGS: Lung Bases: [No foca l opacity] Organs:Gallbladder absent. Otherwise the liver, spleen, adrenals, kidneys, and pancreas are unremarkable.[ GI: Mild retained stool throughout the colon. No bowel obstruction. Appendix unremarkable. Coloni c diverticulosis.[ Pelvis:[Bladder unremarkable. Uterus absent. No suspicious adnexal mass.] Suspected left ovari an follicle. Peritoneum/Retroperi to neum:No free air or free fluid. Aorta normal caliber. No diastases or psoa s muscle with fat-containing ventral abdominal hernia noted measuring 4.7 cm.[ Abd wall/Bones:Straighteni ng normal lordosis. Vertebral heights maintained.[ CT/CT abdomen pelvis w con IMPRESSION: Negative acute inflammatory process or bowel obstruction. Ventral hernia containing fat noted. Impression dictated by: Silver Abbasi M.D. 03/16/2025 6:51 PM Dictation Location: [place] [address] Electronically authenticated by: [id number] Y Date: 03/16/2025 18:51 Dictated By: Silver Abbasi M.D. Signed By: 03/16/251852 DD/ 50 TD/TT: Banking Services Advisor: Reason For Referral Diagnosis 1 Ventral hernia (K43. 9) Referral Organization [facility] Referring Provider First Name Caesar Referring Provider Last Name [facility] Referred Provider Gary Godwin Referred Provider [facility] Referral Priority Routine Diagnosis 1 Ventral hernia (K43. 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 Problem 295489675 Contracture, lef t ankle (M24.572) Active confirmed Problem 61110321 Plantar fascial fibromatosis (M72.2) Active confirmed Problem [id number] Achilles tendinitis, right leg (M76.61) Active confirmed Problem [id number] Achilles tendinitis, left leg (M76.62) Active confirmed Problem Hydrocephalus (941420976) Hydrocephalus (G91.9) Active confirmed Problem Obesity (755353204) Obesity (E66.9) Active confirmed Problem Anxiety (72284201) Anxiety (F41.9) Active confi rmed Problem Depression (688052529) Depression (F32.9) Active confirmed Problem Migraine (24073549) Migraine (G43.909) Active confirmed Problem Ventral hernia (265207868) Ventral hernia (K43.9) Active confirmed Problem Acute sinusitis (67157665) Acute sinusitis (J01.90) Active confirmed Problem Right lower quadrant pain (645251964) Right lower quadrant abdominal pain (R10.31) Active confirmed Problem Sciatica (31080889) Sciatica (M54.30) Active confirmed Problem Pain in left foot (794860947020223) Left foot pain (M79.672) Active confirmed Problem Acute gastroenteritis (69049307) Acute gastroenteritis (K52.9) Active confirmed Problem Arthralgia of the pelvic region and thigh (314653609) Hip pain, acute, right (M25.551) Active confirmed Vital Signs Temperature 98.3 degrees Fahrenheit 10/18/2024 Blood pressure diastolic 100 mm Hg 04/15/2025 Height 61 in 04/15/2025 Blood pressure systolic 146 mm Hg 04/15/2025 Weight 304.8 lbs 04/15/2025 BMI 57.59 kg/m2 04/15/2025 Encounters Encounter Location Date Provider Diagnosis [address] [address] 05/31/2024 Caesar Hoy Migraine G43.[address] [address] 09/20/2024 Caesar Hoy Hip pain, acute, rig ht M25.551 and Depression F32.[address] [address] 06/03/2024 Caesar Hoy Migraine G43.[address] [address] 12/02/2024 Caesar Hoy Migraine G43.[address] [address] 04/15/2025 Caesar Hoy Migraine G43.909 and Hydrocephalus G91.[address] [address] 10/18/2024 Caesar Hoy Cough R05.9 and Influenza J11.[address] [address] 12/01/2024 Caesar Hoy Migraine G43.909 and Obesity E66.[address] [address] 01/12/2025 Caesar Hoy Dysuria R30.[address] [address] 03/10/2025 Caesar Hoy Urinary urgency R39. 15 ; Depression F32.9 and Anxiety F41.[address] [address] 03/24/2025 Caesar Hoy UTI (urinary tract infection), uncomplicated N39.0 and Dysuria R30.[address] [address] 06/15/2024 Caesar Hoy Acute non-recurrent sinusitis, unspecified location J01.90 and Nasal congestion R09.81 [facility] [address] [facility] [place] [address] 08/04/2024 Caesar Hoy Obesity E66.9 and Sciatica M54.30 [facility] [address] [facility] [place] [address] 09/10/2024 Caesar Hoy Hip pain, acute, rig ht M25.551 [facility] [address] [facility] [place] [address] 03/17/2025 Caesar Hoy Ventral hernia K43. 9 [facility] [address] [facility] [place] [address] 04/11/2025 Caesar Hoy Obesity E66.9 [facility] [address] [facility] [place] [address] 11/09/2024 Caesar Hoy Obesity E66.9 [facility] [address] [facility] [place] [address] 12/01/2024 Caesar Hoy Migraine G43.909 [facility] [address] [facility] [place] [address] 12/02/2024 Caesar Hoy [facility] [address] [facility] [place] [address] 12/29/2024 Caesar Hoy Obesity E66.9 [facility] [address] [facility] [place] [address] 02/22/2025 Caesar Hoy Obesity E66.9 [facility] [address] [facility] [place] [address] 03/16/2025 Caesar Hoy Ventral hernia K43.9 [facility] [address] [facility] [place] [address] 05/07/2024 Caesar Hoy Obesity E66.9 [facility] [address] [facility] [place] [address] 06/02/2024 Caesar Hoy Obesity E66.9 [facility] [address] [place] [address] 07/12/2024 Caesar Donato Obesity E66.9 [facility] [address] [place] [address] 10/27/2024 Caesar Donato Assessments Encounter Date Diagnosis (ICD Code) Assessment Notes Treatment Notes Treatment Clinical Notes Section Notes 04/15/2025 Migraine (ICD-10 - G43.909) 04/15/2025 Hydrocephalus (ICD-10 - G91.9) 05/07/2024 Obesity (ICD-10 - E66.9) 06/02/2024 Obesity (ICD-10 - E66.9) 07/12/2024 Obesity (ICD-10 - E66.9) 11/09/2024 Obesity (ICD-10 - E66.9) 12/01/2024 Migraine (ICD-10 - G43.909) 12/29/2024 Obesity (ICD-10 - E66.9) 02/22/2025 Obesity (ICD-10 - E66.9) 03/16/2025 Ventral hernia (ICD-10 - K43.9) 03/17/2025 Ventral hernia (ICD-10 - K43.9) 04/11/2025 Obesity (ICD-10 - E66.9) 05/31/2024 Migraine (ICD-10 - G43.909) 06/03/2024 Migraine (ICD-10 - G43.909) 06/15/2024 Acute non-recurrent sinusitis, unspecified location (ICD-10 - J01.90) Rest and drink more liquids, especially water. You may use a humidifier or vaporizer to help keep the drainage moist. Nmdc-duv-azvscjc Nasal Saline may help the stuffy and runny nose. Use Ibuprofen and or Tylenol as needed for fever, chills, body aches or pain. Children 5 years old should not be given cqag-auq-clqoalk cough and cold medications such as guaifenesin and dextromethorphan. If you're over age 5, you may try czmx-ont-pynevuj cold medications such as guaifenesin and dextromethorphan, [...] - R39.15) 03/10/2025 Depression (ICD-10 - F32.9) 03/24/2025 UTI (urinary tract infection), uncomplicated (ICD-10 - N39.0) Drink plenty of water. Avoid drinks like coffee, alcohol and soft frinks, as these can irritate your bladder and aggravate your frequent or urgent need to urinate. Apply a warm heating pad to your abdomen to minimize bladder pressure or discomfort. You have been prescribed antibiotics for a urinary tract infection. Antibiotics may bother your stomach, so try taking them with a light meal (unless instructed otherwise by your pharmacist). It is important to take them until they are finished. You can use cvjp-zvb-qibjotj acetaminophen or ibuprofen if needed for pain. You should follow up with your Primary Care Physician or return to clinic if not improving in the next 3-5 days. 03/24/2025 Dysuria (ICD-10 - R30.0) 03/10/2025 Anxiety (ICD-10 - F41.9) 10/18/2024 Influenza (ICD-10 - J11.1) 06/15/2024 Nasal congestion (ICD-10 - R09.81) 05/31/2024 Other Take NSAIDs as needed for pain. Discussed avoiding headache triggers and improiving diet and sleep habits to prevent headaches. 10/18/2024 Other Rest and drink more liquids, especially water. You may use a humidifier or vaporizer to help keep the drainage moist. Seuv-klw-kmqkped Nasal Saline may help the stuffy and runny nose. Use Ibuprofen and or Tylenol as needed for fever, chills, body aches or pain. Children 5 years old should not be given jacx-epj-oxdvnzm cough and cold medications such as guaifenesin and dextromethorphan. If you're over age 5, you may try zxxk-uij-egtppub cold medications such as guaifenesin and dextromethorphan, [...] to the emergency room or call 911. 04/15/2025 Other Take NSAIDs as needed for pain. Discussed avoiding headache triggers and improiving diet and sleep habits to prevent headaches. Plan Of Treatment Pending Test Test Name Order Date CULTURE, STOOL 12/17/2023 CT Abdomen and Pelvis w/contrast * 08/14 MRI Brain w/o contrast 05/15/2023 Urinalysis Microscopic 03/24/2025 C DIFF PCR - C Difficile Toxin Gene MARTIN - LC 12/17/2023 CULTURE URINE 03/24/2025 MRI BRAIN WO CON 04/15/2025 US APPENDIX 08/18/2023 US PELVIS 08/18/2023 XR ABD FLAT UP_PA CH 12/17/2023 XR HIP RT 2 3V W PELVIS 09/20/2024 XR acute abdomen series 08/18/2023 Insurance Providers Payer Name Payer Address Payer Phone Subscriber Number Group Number Insured Name Patient Relationship to Insured Coverage Start Date Coverage End Date [employer] [place] [employer] [address] [facility] [place] [phone] [id number] Connie Salcido Self - patient is the insured 3 Medications Administered Medication Instructions Date of Administration Dosage Notes Kenalog-40 05/31/2024 80 mg 80 Kenalog-40 06/03/2024 80 mg Ketorolac Tromethamine 05/15/2023 60 mg 60 Ketorolac Tromethamine 05/31/2024 60 mg 60 Ketorolac Tromethamine 05/31/2024 60 mg Ketorolac Tromethamine 06/03/2024 60 mg Ketorolac Tromethamine 12/01/2024 60 mg Ketorolac Tromethamine 12/02/2024 60 mg Ketorolac Tromethamine 04/15/2025 60 mg Ondansetron HCl 04/15/2025 4 mg Orphenadrine Citrate 05/15/2023 60 mg 60 Orphenadrine Citrate 04/15/2025 60 mg Promethazine 25mg 06/03/2024 25 mg Promethazine 25mg [...] initial encounter S93.492A Surgical History Surgery Date(Month/Year) Laparoscopic hysterectomy with cystoscop y, bilateral salpingectomy 04/10/2023 x2 Gallbladder Right Ankle arthroscopy for aided repair of osteochondral defect of talus, arthrotomy for cartilage grafting, peroneal tendon repair, lateral ankle stabilization, transplantation of bone marrow aspirate 04/09/2019 Hospitalization History Reason Date(Month/Year) see above
--- OUTSIDE RECORDS SUMMARY | 2025-05-01 13:31 | XMS_ITS | Clinical Summary ---
Author Organization [facility] Address [address] [place] [address] Care Team Providers Care Deburring And Tooling Machine Operator Name Role Phone Rojelio Donato MD Primary Care Provider [phone] Allergies Active Allergy Reactions Criticality Noted Date Comments Hydromorphone Nausea Only 04/20/2025 Hydrocodone Nausea Only 10/30/2015 Meloxicam Headache,Other Medium 11/02/2019 Other Reaction(s): Other: See Comments headache headache Medications butalbital-aceta minophen-caff (Fioricet) 50-300-40 mg capsule Take 1 capsule by mouth every 8 (eight) hours if needed. 02/22/2025 Active estradiol (Climara) 0.075 mg/[address] 1 patch on the skin once a week Active cyclobenzaprine (Flexeril) 10 mg tablet every 8 (eight) hours. 10/27/2024 Active oxyCODONE (Roxicodone) 5 mg immediate release tabletIndication s:Incisional hernia, without obstruction or gangrene Take 1 tablet (5 mg) by mouth every 6 (six) hours if needed for severe pain (8-10 pain score) for up to 15 doses. 15 tablet 04/29/2025 Active acetaminophen (Tylenol) 500 mg tabletIndication s:Incisional hernia, without obstruction or gangrene Take 2 tablets (1,000 mg) by mouth every 6 (six) hours if needed for mild pain (1-3 pain score) for up to 10 days. 30 tablet 04/29/2025 05/09/20 25 Active Active Problems Problem Noted Date Diagnosed Date Incisional hernia, without obstruction or gangre ne 03/30/2025 Encounters Date Type Department Care Team Description 04/29/2025 1:00 PM EDT - 04/29/2025 5:00 PM EDT Surgery [facility] Main Operating Room [address] [place] [address] Tk Herrera MD ROBOTIC INCISIONAL HERNIA REPAIR WITH MESH 04/29/2025 12:31 PM EDT Anesthesia Event [facility] Main Operating Room [address] [place] [address] Naldo Zuniga MD Cox, Jonathan D, [facility] 04/29/2025 10:56 AM EDT - 04/29/2025 6:29 PM EDT Hospital Encounter [facility] Main Operating Room [address] [place] [address] Tk Herrera MD Incisional hernia, without obstruction or gangrene Discharge Disposition: Home or Self Care () 04/29/2025 Travel 04/20/2025 Travel 03/31/2025 Telephone [facility] [place] [phone] Emmie Anne MA 03/30/2025 3:40 PM EDT - 03/30/2025 11:59 PM EDT Hospital Encounter [facility] Heart and Vascular [place] [phone] Incisional hernia, without obstruction or gangrene Discharge Disposition: Home or Self Care () 03/30/2025 2:30 PM EDT Consult [facility] [place] [phone] Tk Herrera MD Incisional hernia, without obstruction or gangrene (Primary Dx); Easy bruising; Morbid obesity (CMS/HCC) 03/25/2025 - 03/25/2025 11:59 PM EDT Hospital Encounter [facility] [place] [phone] Discharge Disposition: Home or Self Care () 03/21/2025 Telephone [facility] [place] [phone] Heck, [place]ett, [place] REFERRAL CONSULT from Last 3 Months Social History Tobacco Use Types Packs/Day Years Used Date Smoking Tobacco: Never Smokeless Tobacco: Never Tobacco Cessation:Counseling Given: Not Answered Alcohol Use Standard Drinks/Week Comments Defer 0 [...] Heterosexual or Straight 04/09 10:54 AM EDT Last Filed Vital Signs Vital Sign Reading [...] Mass Index 56.32 04/29/2025 11:12 AM EDT Plan of Treatment Upcoming Encounters Date Type Department Care Team (Late st Contact Info) Description 05/11/2025 2:00 PM EDT Office Visit [facility] Surgery Clinic [address] [place] [address] Tk Herrera MD [address] [facility] [place] [address] Health Maintenance Due Date Last Done Comments Varicella Vaccines (1 of 2 - 13+ 2-dose series) 2006 Adult Tetanus 2015 04/24/2007 HPV/Cotest 2023 COVID-19 Vaccine ( - season) 2024 06/18/2022, 12/03/2021, 10/25/2021 Influenza Vaccine (#1) 2025 , 06/27/2009, 10/18/2008, Additional history exists Depression Screening 03/30/2026 03/30/2025 Cervical Cancer Screening 12/22/2027 Pap Smear 12/22/2027 12/21/2024 Zoster Vaccines (1 of 2) 2043 HIB Vaccines Completed 05/02/1995, 10/10, 07/26/1994, Additional history exists IPV Vaccines Completed 06/16/1998, 04/09, 10/31/1994, Additional history exists Meningococcal Vaccine Aged Out 01/01/2008 No cong sarkis eligible based on patient's age to complete this topic HPV Vaccines Completed 05/10/2009, 10/09, 01/01/2008 Meningococcal B Vaccine Aged Out No l onger eligible based on patient's age to complete this topic Pneumococcal Vaccine: Pediatrics (0 to 5 Years) and At-Risk Patients (6 to 64 Years) Aged Out No longer eligible based on patient's age to complete this topic Rotavirus Vaccines Aged Out No longer eligible based on patient's age to complete this topic Medical Devices Implanted Type Area Coil Shaper Device Identifier Shelf Expiration Date Model / Serial / Lot Mesh,Surcigal, Progrip,[id number] m - [id number] Implanted:Qty: 1 on 04/29/2025 by Tk Herrera MD at [facility] Mesh N/A: Abdomen [employer] [id number] 06/07/2029 [id number] / / [id number] Procedures Procedure Name Priority Date/Time Associated Diagnosis Comments UT AN ELECTIVE ENDOTRACHEAL AIRWAY Routine 04/29/2025 12:44 PM EDT POCT GLUCOSE METER UNSOLICITED RESULTS Routine 04/29/2025 11:36 AM EDT ECG 12-LEAD Routine 03/30/2025 4:24 PM EDT Incisional hernia, without obstruction or gangrene CT TRANSFER OF OUTSIDE FILMS Routine 03/25/2025 12:00 AM EDT from Last 3 Months Results * UT AN ELECTIVE ENDOTRACHEAL AIRWAY (04/29/2025 12:44 PM EDT) Naldo Trujillo MD - 04/29/2025 12:44 PM EDT Naldo Zuniga MD 04/29/2025 6:44 PM Airway Date/Time: 04/29/2025 12:44 PM Reason: elective Airway not difficult General Information and Staff Patient location during procedure: OR Anesthesiologist: Naldo Zuniga MD Resident/MEDICAL INSURANCE CLAIMS PROCESSOR/CAA: Tra Ochoa MD Performed: resident/MEDICAL INSURANCE CLAIMS PROCESSOR/CAA Patient Condition Indications for airway management: anesthesia [...] Naldo Zuniga MD ANESTHESIA ORDERABLES Final Result * POCT glucose meter (04/29/2025 11:36 AM EDT) Glucose POC 92 70 - 105 mg/dL 04/29/2025 11:52 AM EDT [facility] ([facility] Comment:ngrotha Blood Capillary blood specimen / Unknown 04/29/2025 11:36 AM EDT 04/29/2025 11:52 AM EDT Narrative [facility] - 04/29/2025 11:52 AM EDT Waived Testing in the ED is performed under the ED CLIA certificate #[id number]. us Tk Herrera MD LAB BLOOD ORDERABLES Final Resul t [facility]) [address] [place] [address] * ECG 12 lead (03/30/2025 4:24 PM EDT) Ventricular Rate 65 BPM GE MUSE Atrial Rate 65 BPM GE MUSE UT Interval 170 ms GE MUSE QRS DURATION 84 ms GE MUSE QT Interval 436 ms GE MUSE QTC CALCULATION(BAZE TT) 453 ms GE MUSE P [place] 27 degrees GE MUSE R-[place] 3 degrees GE MUSE T Wave [place] 37 degrees GE MUSE 03/30/2025 4:10 PM EDT 03/30/2025 4:58 PM EDT Impressions GE MUSE - 03/30/2025 4:58 PM EDT Normal sinus rhythm Normal ECG No previous ECGs available Confirmed by Beto MEDINA SAMER J. ([id number]) on 03/30/2025 4:58:03 PM Narrative Procedure Note Cindy Medina MD - 03/30/2025 IMPRESSION: Normal sinus rhythm Normal ECG No previous ECGs available Confirmed by Beto MEDINA SAMER J. (57) on 03/30/2025 4:58:03 PM us Tk Herrera MD ECG ORDERABLES Final Result Performing Organization Address City/[facility] Co de Phone Number GE MUSE * CT transfer of outside films (03/25/2025 12:00 AM EDT) Narrative IMAGING - 03/25/2025 9:21 AM EDT This order has been auto-finalized and does not contain a result. us Tk Herrera MD IMG CT PROCEDURES Final Result IMAGING from Last 3 Months Insurance [facility] [employer] MEDICAID Advance Directives * Full Code (Latest Code Status on File) Date Activated Date Inactivated Comments 04/29/2025 11:10 AM 04/29/2025 8:29 PM Care Teams Deburring And Tooling Machine Operator Relationship Specialty Start Date End Date Rojelio Donato MD [address] [place] [address] PCP - General Family Medicine 03/21/25
--- OUTSIDE RECORDS SUMMARY | 2025-05-01 13:31 | XMS_ITS | Encounter Summary ---
Author Organization [facility] Address [address] [place] [address] Care Team Providers Care Engine Wiper Name Role Phone Rojelio Donato MD Primary Care Provider [phone] Encounter Details Date Type Department Care Team (Latest Contact Info) Description 04/20/2025 Travel Social History Tobacco Use Types Packs/Day [...] Description 05/11/2025 2:00 PM EDT Office Visit [facility] Surgery Clinic [address] [place] [address] Tk Herrera MD [address] [facility] [place] [address] documented as of this encounter Visit Diagnoses Not on filedocumented in this encounter Care Teams Engine Wiper Relationship Specialty Start Date End Date Rojelio Donato MD [address] [place] [address] PCP - General Family Medicine 03/21/25 documented as of this encounter
--- NOTE | 2025-05-01 13:55 | ED.RECABL1 ---
HPI - Recheck/Abnormal Lab/Rx General Chief Complaint: Recheck/Abnormal Lab/Rx Stated Complaint: Postoperative Complication Time Seen by Provider: 05/01/25 13:39 Mode of arrival: walk-in History of Present Illness HPI narrative: The patient is a 29-year-old female with a history of laparoscopic hernia repair with mesh placement two days ago, who presents with irritation at the lower surgical site. She reports mild tenderness in the area but denies any drainage, erythema, or signs of infection. The post-operative course has been within expected limits, with no fever or significant changes in abdominal pain. The patient notes that the glue on the surgical site has come off, and she requests that it be reapplied. She has been wearing a binder as instructed. No other symptoms are present, and there is no indication of complications at this time. Surgery was performed at [facility]. No complications during surgery or post op other then this irritation. She sees her surgeon for follow up in a week. No fever or chills, no nausea or vomiting. Bowels moving regularly no decrease in urinary output Related Data Home Medications ?Medication ?Instructions ?Recorded ?Confirmed fjqgufgtqh-blmdbrtjtzkyq-uqoianzl cap 10/06/24 50 mg-300 mg-40 mg capsule desvenlafaxine succinate 50 mg mg PO 03/16/25 tablet,extended release 24 hr estradiol 0.075 mg/24 hr weekly 03/16/25 transdermal patch hydroxyzine HCl 25 mg tablet mg 03/16/25 Previous Rx's ?Medication ?Instructions ?Recorded ondansetron 4 mg disintegrating 4 mg PO Q6H PRN nausea and 10/06/24 tablet vomiting #12 tabs Allergies Allergy/AdvReac Type Severity Reaction Status Date / Time meloxicam Allergy Headache Verified 03/16/25 15:42 acetaminophen (From Winn) AdvReac Mild Nausea Verified 03/16/25 15:42 hydrocodone (From Winn) AdvReac Mild Nausea Verified 03/16/25 15:42 hydromorphone (From Dilaudid) AdvReac Mild Nausea Verified 03/16/25 15:42 [facility] Medical History (Updated 05/01/25 @ 14:23 by MITESH HOPKINS) Migraine ?G43.909 - Migraine, unspecified, not intractable, without status migrainosus (ICD-10) Sleep apnea ?G47.30 - Sleep apnea, unspecified (ICD-10) Bronchitis ?J40 - Bronchitis, not specified as acute or chronic (ICD-10) Kidney stones ?N20.0 - Calculus of kidney (ICD-10) Postoperative nausea and vomiting ?R11.2 - Nausea with vomiting, unspecified (ICD-10) ?Z98.890 - Other specified postprocedural states (ICD-10) Hernia ?K46.9 - Unspecified abdominal hernia without obstruction or gangrene (ICD-10) Pelvic pain ?R10.2 - Pelvic and perineal pain (ICD-10) Dyspareunia Dysmenorrhea ?N94.6 - Dysmenorrhea, unspecified (ICD-10) Menorrhagia ?N92.0 - Excessive and frequent menstruation with regular cycle (ICD-10) Surgical History (Updated 03/27/23 @ 13:10 by Deneen Ayala NP) History of section ?Z98.891 - History of uterine scar from previous surgery (ICD-10) History of section ?Z98.891 - History of uterine scar from previous surgery (ICD-10) H/O tubal ligation ?Z98.51 - Tubal ligation status (ICD-10) H/O lithotripsy ?Z98.890 - Other specified postprocedural states (ICD-10) History of endometrial ablation (11/16/21) ?Z98.890 - Other specified postprocedural states (ICD-10) History of cholecystectomy ?Z90.49 - Acquired absence of other specified parts of digestive tract (ICD-10) History of ankle surgery ?Z98.890 - Other specified postprocedural states (ICD-10) Family History (Updated 03/27/23 @ 13:10 by Deneen Ayala NP) Other Family history of DVT Family history of cancer Family history of heart disease Family history of hypertension Social History Within the past year, how often did you have a drink containing alcohol: monthly or less Smoking status: Never smoker Non-prescribed substance use: denies use 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 Abdomen: Soft, non-distended, mild tenderness at the lower surgical site. No signs of infection (e.g., erythema, drainage). Post-operative site appears clean with residual surgical glue, no visible dehiscence. No rebound tenderness or guarding. Surgical Site: No erythema, warmth, or drainage. Mild tenderness to palpation at the incision site. Glue has started to peel off, and patient requests reapplication. Cardiovascular: Regular rate and rhythm, no murmurs or irregularities. Respiratory: Clear to auscultation bilaterally. Neuro: Alert and oriented x3, no focal deficits. Constitutional Vital Signs, click to edit/add: Last Vital Signs Temp 98.4 F 05/01/25 13:25 Pulse 89 05/01/25 13:25 Resp 18 05/01/25 13:25 BP 153/93 H 05/01/25 13:25 Pulse Ox 99 05/01/25 13:25 Course Vital Signs Vital signs: Vital Signs Temperature 98.4 F 05/01/25 13:25 Pulse Rate 89 05/01/25 13:25 Respiratory Rate 18 05/01/25 13:25 Blood Pressure 153/93 H 05/01/25 13:25 Pulse Oximetry 99 05/01/25 13:25 Temperature 98.4 F 05/01/25 13:25 Pulse Rate 89 05/01/25 13:25 Respiratory Rate 18 05/01/25 13:25 Blood Pressure 153/93 H 05/01/25 13:25 Pulse Oximetry 99 05/01/25 13:25 MDM - Recheck/Abnormal Lab/Rx MDM Narrative Medical decision making narrative: The patient is a 29-year-old female who underwent laparoscopic hernia repair with mesh placement two days ago. She presented today with mild irritation at the lower surgical site, without drainage, erythema, or signs of infection. On examination, the site was clean, and mild tenderness was noted. Given the absence of complications such as fever, drainage, or significant pain, the post-operative course is consistent with expected recovery. The surgical site was cleaned with chlorhexidine, and skin glue was reapplied without complication. The patient was instructed to continue wearing the abdominal binder for support. No further intervention was required at this time, and the patient was advised to follow up as needed or if any signs of infection develop. ED attending Dr. Barger also evaluated. Medical Records Attestation: I reviewed the patient's medical records. Discharge Plan Discharge Chief Complaint: Recheck/Abnormal Lab/Rx Clinical Impression: Encounter for post surgical wound check Patient Disposition: Home, Self-Care Time of Disposition Decision: 14:22 Condition: Good Prescriptions / Home Meds: No Action thwueswjzy-gabgnziyrjoaj-kiux 50-300-40 mg capsule ondansetron 4 mg tablet,disintegrating 4 mg PO Q6H PRN (Reason: nausea and vomiting) Qty: 12 0RF estradiol 0.075 mg/24 hr patch weekly hydroxyzine HCl 25 mg tablet desvenlafaxine succinate 50 mg tablet extended release 24 hr PO Print Language: Syrian Instructions: Skin Adhesive Care (ED) Referrals: Your surgeon [Other] - 1 week Rojelio Donato MD [Primary Care Provider, Family Practice] - 1 week Discharge Date/Time: 05/01/25 14:42
== END 2025-05-01 14:42 | disposition home or self-care (01) ==
PROVIDERS: Emergency Provider Student in an Organized Health Care Education/Training Program; PCP Family Medicine
DX: Z48.89 Encounter for other specified surgical aftercare (principal)
CPT/HCPCS: 99283

== ENCOUNTER 2025-05-26 13:59 | Outpatient (OUT) | payer OTHER, SELFPAY ==
--- OUTSIDE RECORDS SUMMARY | 2025-05-26 14:00 | XMS_ITS | Encounter Summary ---
Author Organization [facility] Address [address] [place] [address] Care Team Providers Care Program Admin Name Role Phone Noah Walton DO Unavailable Source Comments In the event this information is protected by the Federal Confidentiality of Alcohol and Drug AbusePatient Records regulations: The Federal rules restrict any use of the information to criminally investigate or prosecute any alcohol or drug abuse patient.[facility] Encounter Details Date Type Department Care Team (Late st Contact Info) Description 05/17/2022 Patient Msg General Surgery [address] [place], [place] [id number] Provider, [facility] Nutrition Summary Social History Tobacco Use Types Packs/Day Years Used Date Smoking Tobacco: Never Smokeless Tobacco: Never Area Deprivation Index Answer Date Francois rded National Score (1-100), lower number is lower ri sk 88 04/26/2022 State Score (1-10), lower number is lower risk N ot on file 04/26/2022 Data from: https://www.neighborhoodatlas.medicine.[facility].edu/. Last address used for calculation [address] 04/26/2022 Comments No Sex and Gender [...] on filedocumented in this encounter Care Teams Program Admin Relationship Specialty Start Date End Date Noah Walton DO [address] [place] [address] Referring Interior Design Professor 04/23/22 documented as of this encounter
--- OUTSIDE RECORDS SUMMARY | 2025-05-26 14:00 | XMS_ITS | Encounter Summary ---
Author Organization [facility] Address [address] [place] [address] Care Team Providers Care Endless Track Vehicle Supervisor Name Role Phone Noah Walton DO Unavailable [phone] Source Comments In the event this information is protected by the Federal Confidentiality of Alcohol and Drug AbusePatient Records regulations: The Federal rules restrict any use of the information to criminally investigate or prosecute any alcohol or drug abuse patient.[facility] Encounter Details Date Type Department Care Team (Late st Contact Info) Description 05/21/2022 Patient Msg Family Medicine [address] [place], [place] [id number] Provider, [facility] Appointments Needed Social History Tobacco Use Types Packs/Day Years Used Date Smoking Tobacco: Never Smokeless Tobacco: Never Area Deprivation Index Answer Date Francois rded National Score (1-100), lower number is lower ri sk 88 04/26/2022 State Score (1-10), lower number is lower risk N ot on file 04/26/2022 Data from: https://www.neighborhoodatlas.medicine.[facility].edu/. Last address used for calculation [address] [...] on filedocumented in this encounter Care Teams Endless Track Vehicle Supervisor Relationship Specialty [place] [address] [place] [address] Referring Fuel Agent 04/23/22 documented as of this encounter
--- OUTSIDE RECORDS SUMMARY | 2025-05-26 14:00 | XMS_ITS | Clinical Summary ---
Author Organization [facility] Address [address] [place] [address] Care Team Providers Care Concrete Tile Machine Operator Name Role Phone Rojelio Donato [...] EDT Office Visit [facility] [address] [place] [phone] Noah Walton DO [address] [place], [place] [id number] Health Maintenance Due Date Last Done Comments [...] Maintenance Insurance [employer] MEDICA[employer] Care Teams Concrete Tile Machine Operator Relationship Specialty Start Date End Date Rojelio Donato MD PCP - General Family Medicine 01/27/23
--- OUTSIDE RECORDS SUMMARY | 2025-05-26 14:00 | XMS_ITS | Encounter Summary ---
Author Organization [facility] Address [address] [place] [address] Care Team Providers Care Legal Instructor Name Role Phone Rojelio Donato MD Primary Care Provider [phone] Encounter Details Date Type Department Care Team (Late Contact Info) Description 12/30/2024 Orders Only [facility] [address] [place] [address] [place] [id number] Nena Wilson MA [address] [address] Social History Tobacco Use Types Packs/Day Years [...] EDT Office Visit [facility] [address] [place] [address] Noah Walton DO [address] [place], [place] [id number] documented as of this encounter Procedures Procedure Name Priority Date/Time Associated Diagnosis Comments PAP SMEAR Routine 12/21/2024 12:00 AM EDT documented in this encounter Results * Pap Smear (12/21/2024 12:00 AM EDT) Swab Cervical swab / Unknown us Noah Walton DO LAB CYTOLOGY ORDERABLES Final Re sult EXTERNAL LAB documented in this encounter Visit Diagnoses Not on filedocumented in this encounter Care Teams Legal Instructor Relationship Specialty Start Date End Date Rojelio Donato MD PCP - General Family Medicine 01/27/23 documented as of this encounter
--- OUTSIDE RECORDS SUMMARY | 2025-05-26 14:00 | XMS_ITS | Clinical Summary ---
Author Organization [facility] Address [address] [place] [address] Care Team Providers Care Merchandise Director Name Role Phone Noah Walton DO Unavailable [phone] Allergies Active Allergy Reactions Criticality Noted [...] N ot on file 09/21/2022 Data from: https://www.neighborhoodatlas.medicine.[facility].edu/. Last address used for calculation [address] 09/21/2022 Comments No Sex and Gender [...] 04/24/2017 04/24/2007, 06/16/1998, 05/02/1995, Additional history exists Influenza Vaccine (#1) 2025 , 10/18/2008, 07/13/2004 Hepatitis B Vaccine Completed 05/02/1995, 11/18/1994, 03/18/1994 HPV Vaccine Completed 05/10/2009, 10/09, 01/01/2008 Insurance [facility] Care Teams Merchandise Director Relationship Specialty Start Date End Date Noah Walton DO [address] [place] [address] Referring Medical Dermatologist 04/23/22
--- OUTSIDE RECORDS SUMMARY | 2025-05-26 14:00 | XMS_ITS | Encounter Summary ---
Author Organization [facility] Address [address] [place] [place] [address] Care Team Providers Care Instructor Knitting Name Role Phone Rojelio Donato MD Primary Care Provider [phone] Encounter Details Date Type Department Care Team (Late Contact Info) Description 01/24/2023 Abstract [facility] [address] [place] [address] [place] [address] Julieta Garcia PA [address] [place] [address] [address] [place], [place] [address] Social History Tobacco Use Types Packs/Day Years [...] 12/28/2025 4:00 PM EDT Office Visit [facility] [address] [place] [address] Noah Walton DO [address] [place] [address] documented as of this encounter Visit Diagnoses Not on filedocumented in this encounter Care Teams Instructor Knitting Relationship Specialty Start Date End Date Rojelio Donato MD PCP - General Family Medicine 01/27/23 documented as of this encounter
--- OUTSIDE RECORDS SUMMARY | 2025-05-26 14:01 | XMS_ITS | Encounter Summary ---
Author Organization [facility] Address [address] [facility] [place] [address] Care Team Providers Care Systems Program Manager Name Role Phone Rojelio Donato MD Primary Care Provider [phone] Encounter Details Date Type Department Care Team (Late Contact Info) Description 10/14/2023 Clinisync Result Encounter [facility] External Department Unsolicited Carlito Walton DO [address] [place] [address] Social History Tobacco Use Types Packs/Day Years [...] Visit [facility] [place] [facility] [address] [place] [phone] Carlito Waltno DO [address] [place] [address] documented as of this encounter Procedures Procedure Name Priority Date/Time Associated Diagnosis Comments US PELVIS W/ TRANSVAGINAL 10/14/2023 12:52 PM EST documented in this encounter Results * US PELVIS W/ TRANSVAGINAL (10/14/2023 12:52 PM EST) Anatomical Region Laterality Modality Other 10/14/2023 12:5 2 PM EST Narrative 10/14/2023 12:55 PM EST [address] [address] Ultrasound Report Signed Patient: ABDIRAHMAN SALCIDO MR#: [id number] : 1995 Acct:[id number] Age/Sex: 27 / F ADM Date: 10/14/23 Loc: [facility] Attending Dr: Carlito Walton D.O. Ordering Physician: Carlito Walton D.O. Date of Service: 10/14/23 Procedure(s): US pelvis w/ transvaginal Accession Number(s): [id number] cc: Carlito Walton D.O.; Rojelio Donato M.D. [place] [id number] Patient Name: ABDIRAHMAN SALCIDO MRN: [id number] date: 1995 Sex: F Assigned Patient Location: [facility] Current Patient Location: [facility] Accession/Order Number: [id number] Exam Date: 10/14/2023 10:55 Report Date: 10/14/2023 [...] Signed By: 10/14/23 125 DD/ 125 TD/TT: Integrated Logistics Programs Director: Procedure Note Radiology, Radiologist, - 10/14/2023 [place] [address] Ultrasound Report Signed Patient: ABDIRAHMAN SALCIDO MMR#: [id number] : 1995Acct:[id number] Age/Sex: 27 / FADM Date: 10/14/23 Loc: [facility] Attending Dr: Carlito Walton D.O. Ordering Physician: Carlito Walton D.O. Date of Service: 10/14/23 Procedure(s): US pelvis w/ transvaginal Accession Number(s): [id number] cc: Carlito Walton D.O.; Rojelio Donato M.D. The [place] [id number] Patient Name: ABDIRAHMAN SALCIDO MRN: [id number] date: 1995 Sex: F Assigned Patient Location: [facility] Current Patient Location: [facility] Accession/Order Number: [id number] Exam Date: 10/14/2023 10:55 Report Date: 10/14/2023 12:52 At the request of: CARLITO WLATON Procedure: US pelvis w/ transvaginal EXAM: Pelvic [...] was not identified. Electronically authenticated by: AYAD COUHGLIN Date: 10/14/2023 12:52 Dictated By: Ayad Coughlin M.D. Signed By:10/14/23 125 DD/ 1252 TD/TT: Integrated Logistics Programs Director: us Carlito Isabelle DO [facility] Final Result documented in this encounter Visit Diagnoses Not on filedocumented in this encounter Care Teams Systems Program Manager Relationship Specialty Start Date End Date Rojelio Donato MD PCP - General Family Medicine 01/27/23 documented as of this encounter
--- OUTSIDE RECORDS SUMMARY | 2025-05-26 14:01 | XMS_ITS | Encounter Summary ---
Author Organization [facility] Address [address] [place] [address] Care Team Providers Care Records Manager Name Role Phone Rojelio Donato MD Primary Care Provider [phone] Encounter Details Date Type Department Care Team (Late Contact Info) Description 03/20/2023 Abstract [facility] [address] [place], [place] [address] [address] Noah Walton DO [address] [place], [place] [address], [place] [address] Social History Tobacco Use Types Packs/Day Years [...] PM EDT Office Visit [facility] [address] [facility] [place] [address] Noah Walton DO [facility] [address] [place], [facility]11 documented as of this encounter Visit Diagnoses Not on filedocumented in this encounter Care Teams Records Manager Relationship Specialty Start Date End Date Rojelio Donato MD PCP - General Family Medicine 01/27/23 documented as of this encounter
--- OUTSIDE RECORDS SUMMARY | 2025-05-26 14:01 | XMS_ITS | Encounter Summary ---
Author Organization [facility] tem Address [id number] [address] [place] [address] Care Team Providers Care Ethylene Oxide Panelboard Operator Name Role Phone Rojelio Donato MD Primary Care Provider [phone] Encounter Details Date Type Department Care Team (Late st Contact Info) Description 03/10/2020 Documentation [facility] - Labor [address] [place] [address] Fani Weiss RN Social History Tobacco Use [...] and set up with an appointment at [place] on 03/14/20. 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 03/10/2020 03/14/2020 03/16/2020 10:47 AM EDT documented as of this encounter Care Teams Ethylene Oxide Panelboard Operator Relationship Specialty Start Date End Date Rojelio Donato MD PCP - General Family Medicine 01/24/20 documented as of this encounter
--- OUTSIDE RECORDS SUMMARY | 2025-05-26 14:01 | XMS_ITS | Encounter Summary ---
Author Organization [facility] Address [address] [place] [address] Care Team Providers Care Mud Jack Nozzle Worker Name Role Phone Rojelio Donato MD Primary Care Provider [phone] Encounter Details Date Type Department Care Team (Late Contact Info) Description 03/20/2023 Abstract [facility] [address] [place], [place] [address] [address] Noah Walton DO [address] [place], [place] [address], [place] [address] Social History Tobacco Use Types Packs/Day Years [...] [facility] [address] [facility] [place] [address] Noah Walton DO [facility] [place], [facility]11 documented as of this encounter Visit Diagnoses Not on filedocumented in this encounter Care Teams Mud Jack Nozzle Worker Relationship Specialty Start Date End Date Rojelio Donato MD PCP - General Family Medicine 01/27/23 documented as of this encounter
--- OUTSIDE RECORDS SUMMARY | 2025-05-26 14:01 | XMS_ITS | Clinical Summary ---
Author Organization [facility] Address [id number] [address] [place] [address] Care Team Providers Care Sound Printer Name Role Phone Rojelio Donato MD Primary Care Provider [phone] Allergies Active Allergy Reactions Criticality Noted Date [...] (six) hours as needed for pain. Active CEPHalexin (KEFLEX) 500 mg capsule Take 1 capsule (500 mg total) by mouth 3 (three) times a day for 10 days. 30 capsule 5 05/16/20 25 Active Problems Problem Noted Date Diagnosed Date [...] 4 weeks after 28 weeks NST and [employer] weekly after 32 weeks Delivery timing: at or after 38 weeks due to chronic hypertension not on medications Pt desires rLTCS, currently scheduled for 38 weeks. Observe for development of preeclampsia. records were reviewed 24 hour urine collection 01/21/2020 393 mg protein - this was noted after re-review of records on 03/11/2020 Encounters Date Type Department Care Team Description 05/06/2025 12:56 PM EDT - 05/06/2025 5:34 PM EDT Emergency [facility] - Emergency [address] [place] [id number] Gary Gómez, Abrasion of abdominal wall, initial encounter (Primary Dx) Discharge Disposition: Home 05/06/2025 Travel 04/11/2025 Travel from Last 3 Months Immunizations [...] drink = 0.6 oz pur e alcohol) [place] Depression Scale Answer Date Recorded [place] Depression Scale Total 7 03/31/2020 The thought of harming myself has occurred to me . Hardly ever 03/31/2020 Childcare Answer Date Recorded Childcare Unknown 02/17/2019 Employment Answer Date Recorded Employment Unknown 02/17/2019 Hunger Screening Answer Date Recorded Within the past 12 months we worried whether our food would run out before we got money to buy more. Never True 05/06/2025 Within the past 12 months th e food we bought just didn't last and we didn't have money to get more. Never True 05/06/2025 Purpose - Life Answer Date Recorded Purpose and direction in life Unknown Comments No Sex and Gender Information Value Date Recorded Sex Assigned at Not on file Legal Sex Female 11:48 AM EDT Gender Identity Not on file Sexual Orientation Not on file Last Filed Vital Signs Vital Sign Reading Time Taken Comments Blood Pressure 138/82 05/06/2025 5:23 PM EDT Pulse 78 05/06/2025 5:23 PM EDT Temperature 36.8 C (98.2 F) 05/06/2025 12:58 PM EDT Respiratory Rate 13 05/06/2025 5:23 PM EDT Oxygen Saturation 99% 05/06/2025 5:23 PM EDT Inhaled Oxygen Concentration - - Weight 138.9 kg (306 lb 4.8 oz) 025 12:58 PM EDT Height 154.9 cm (5' 1 ) 05/06/2025 12:5 8 PM EDT Body Mass Index 57.87 05/06/2025 12:58 PM EDT Plan of Treatment Health Maintenance Due Date Last Done Comments Adult BMI Follow Up Plan 2011 DTaP,Tdap and Td Vaccines (7 - Td or Tdap) 04/24/2017 04/24/2007, 06/16/1998, 05/02/1995, Additional history exists Depression Screening 03/31/2021 03/31/2020 COVID-19 Vaccine (2024-2 6 season) 2025 06/18/2022, 12/03/2021, 10/25/2021 Influenza Vaccine 05/09/2025 06/18/2022, , 10/18/2008, Additional history exists Adult BMI Screening 05/06/2026 05/06/2025 Tobacco Screening 05/06/2026 05/06/2025 Pap Smear 12/22/2027 12/21/2024 Medical Devices Not on file Procedures Procedure Name Priority Date/Time Associated Diagnosis Comments CT ABDOMEN AND PELVIS W CONT STAT 05/06/2025 3:30 PM EDT CBC WITH AUTO DIFFERENTIAL STAT 05/06/2025 2:10 PM EDT EXTRA TUBES DUONG TOP ON ICE Routine 05/06/2025 2:09 PM EDT EXTRA TUBES BLUE TOP Routine 05/06/2025 2:09 PM EDT EXTRA TUBES Routine 05/06/2025 2:09 PM EDT COMPREHENSIVE METABOLIC PANEL STAT 05/06/2025 2:09 PM EDT C-REACTIVE PROTEIN STAT 05/06/2025 2: 09 PM EDT PROTIME & INR Routine 04/11/2025 3:49 PM [...] gangrene from Last 3 Months Results * CT abdomen and pelvis with contrast (05/06/2025 3:30 PM EDT) Anatomical Region Laterality Modality Body, Abdomen, Body Covera N/A Compu bereket Tomography 05/06/2025 3:34 PM EDT Narrative 05/06/2025 3:46 PM EDT Clinical history: Postoperative abdominal pain. History of ventral hernia repair one week ago. Technique: Spiral CT of the abdomen and pelvis was performed after the intravenous administration of contrast material. Sagittal and coronal reformatted imaging was performed. All CT scans at this facility use dose modulation, iterative reconstruction, and/or weight based dosing when appropriate to reduce radiation dose to as low as reasonably achievable. Comparisons: 07/28/2012. Findings: Lung bases are clear. There is no pneumoperitoneum. Changes of ventral/umbilical hernia repair are present. There is a triangular-shaped collection of fluid ventral to the mesh within the subcutaneous fat of the anterior abdominal wall which measures 3.0 x 2.6 x 4.7 cm. There is a tiny bubble of gas within the cephalad most portion of this collection. This may represent a sterile postoperative collection, however infected collection is not excluded. Additionally there is now dermal thickening and reticulation of subcutaneous fat over the more inferior portion of the anterior abdominal wall concerning for cellulitis. Patient is status post cholecystectomy. The liver, spleen, adrenal glands and pancreas appear unremarkable. Kidneys appear unremarkable. Abdominal aorta is not aneurysmal. No retroperitoneal nor mesenteric lymphadenopathy. Kidneys appear unremarkable. Renal collecting systems and ureters are not dilated. There are no dilated bowel loops. Appendix is normal. Patient appears to be status post hysterectomy in the interim. No acute fracture. IMPRESSION: 1. There is an irregular collection of fluid within the subcutaneous fat ventral to the area of mesh repair which may represent a sterile postoperative seroma, however infected fluid is not particularly in light of the left thickening and reticulation of subcutaneous fat more inferiorly which can be seen with cellulitis. Clinical is required. Finalized by Shalom Shultz MD on 05/06/2025 3:46 PM Procedure Note Shalom Shultz MD - 05/06/2025 Clinical history: Postoperative abdominal pain. History of ventral herniarepair one week ago. Technique: Spiral CT of the abdomen and pelvis was performed after theintravenous administration of contrast material. Sagittal and coronalreformatted imaging was performed. All CT scans at this facility use dosemodulation, iterative reconstruction, and/or weight based dosing whenappropriate to reduce radiation dose to as low as reasonably achievable. Comparisons: 07/28/2012. Findings: Lung bases are clear. There is no pneumoperitoneum. Changes ofventral/umbilical hernia repair are present. There is a triangular-shapedcollection of fluid ventral to the mesh within the subcutaneous fat of theanterior abdominal wall which measures 3.0 x 2.6 x 4.7 cm. There is a tinybubble of gas within the cephalad most portion of this collection. This may represent asterile postoperative collection, however infected collection is notexcluded. Additionally there is now dermal thickening and reticulation ofsubcutaneous fat over the more inferior portion of the anterior abdominalwall concerning for cellulitis. Patient is status post cholecystectomy. Theliver, spleen, adrenal glands and pancreas appear unremarkable. Kidneysappear unremarkable. Abdominal aorta is not aneurysmal. No retroperitonealnor mesenteric lymphadenopathy. Kidneys appear unremarkable. Renalcollecting systems and ureters are not dilated. There are no dilated bowel loops.Appendix is normal. Patient appears to be status post hysterectomy in theinterim. No acute fracture. IMPRESSION: 1. There is an irregular collection of fluid within the subcutaneous fatventral to the area of mesh repair which may represent a sterilepostoperative seroma, however infected fluid is not particularly in lightof the left thickening and reticulation of subcutaneous fat moreinferiorly which can be seen with cellulitis. Clinical is required. Finalized by Shalom Shultz MD on 05/06/2025 3:46 PM us Gary Gómez DO IMG CT ORDERABLES Final Result * (ABNORMAL) CBC auto differential (05/06/2025 2:10 PM EDT) Only the most recent of2 resultswithin the time period is included. WBC 10.2 4 - 11 x10E9/L 05/06/2025 2:22 PM EDT [facility] RBC Count 4.75 3.8 - 5.2 X10E12/L 05/06/2025 2:22 PM EDT [facility] Hemoglobin 14.2 11.7 - 15.5 g/dL 05/06/2025 2:22 PM EDT [facility] Hematocrit 42.0 35 - 47 % 05/06/2025 2:22 PM EDT [facility] MCV 88 80 - 100 fL 05/06/2025 2:22 PM EDT [facility] MCH 30.0 27 - 34 pg 05/06/2025 2:22 PM EDT [facility] MCHC 33.9 32 - 36 g/dL 05/06/2025 2:22 PM EDT [facility] RDW 13.4 11.5 - 15 % 05/06/2025 2:22 PM EDT [facility] Platelet Count 277 150 - 450 X10E9/L 05/06/2025 2:22 PM EDT [facility] MPV 7.9 7 - 12 fL 05/06/2025 2:22 PM EDT [facility] Neutrophils % 69.1 % 05/06/2025 2:22 PM EDT [facility] Lymphocytes % 22.7 % 05/06/2025 2:22 PM EDT [facility] Monocytes % 7.1 % 05/06/2025 2:22 PM EDT [facility] Eosinophils % 0.7 % 05/06/2025 2:22 PM EDT [facility] Basophils % 0.4 % 05/06/2025 2:22 PM EDT [facility] Neutrophils Absolute (A) 7.1(H) 1.5 - 6.6 10*3/uL 05/06/2025 2:22 PM EDT [facility] Lymphocytes Absolute 2.3 1.0 - 3.5 10*3/uL 05/06/2025 2:22 PM EDT [facility] Monocytes Absolute 0.7 0.0 - 0.9 10*3/uL 05/06/2025 2:22 PM EDT [facility] Eosinophils Absolute 0.1 0.0 - 0.4 10*3/uL 05/06/2025 2:22 PM EDT [facility] Basophils Absolute 0.0 0.0 - 0.2 10*3/uL 05/06/2025 2:22 PM EDT [facility] Differential Type AUTOMATED DIFFERENTIAL 05/06/2025 2:22 PM EDT [facility] Blood Venous blood / Unknown Venipuncture / Unknown 05/06/2025 2:10 PM EDT 05/06/2025 2:11 PM EDT us Gary Gómez DO LAB BLOOD ORDERABLES Fi nal Result Performing Organization Address City/[facility]/ZIP Co de Phone Number [address] [place] [address], [place] * Duong Top On Ice (05/06/2025 2:09 PM EDT) Extra Tube Auto Resulted 05/06/2025 4:01 PM EDT [facility] Blood Venous blood / Unknown 05/06/2025 2:09 PM EDT 05/06/2025 2:12 PM EDT us Gary Gómez DO LAB BLOOD ORDERABLES Fi nal Result Performing Organization Address City/[facility] [[email or web address]] Co de Phone Number [address] [place] [address], [place] * Light Blue Top (05/06/2025 2:09 PM EDT) Extra Tube Auto Resulted 05/06/2025 4:01 PM EDT [facility] Blood Venous blood / Unknown 05/06/2025 2:09 PM EDT 05/06/2025 2:12 PM EDT us Gary Gómez DO LAB BLOOD ORDERABLES Fi nal Result Performing Organization Address City/[facility] [[email or web address]] Co de Phone Number [address] [place] [address], [place] * (ABNORMAL) C-reactive protein (05/06/2025 2:09 PM EDT) C REACTIVE PROTEIN 1.8(H) <=0.7 mg/dL 05/06/2025 2:34 PM EDT [facility] Blood Venous blood / Unknown Venipuncture / Unknown 05/06/2025 2:09 PM EDT 05/06/2025 2:11 PM EDT us Gary Gómez DO LAB BLOOD ORDERABLES Fi nal Result [facility] [address] [facility] [place] [address], [place] * (ABNORMAL) Comprehensive metabolic panel (05/06/2025 2:09 PM EDT) SODIUM 134 134 - 146 mmol/L 05/06/2025 2:34 PM EDT [facility] POTASSIUM 4.0 3.5 - 5.0 mmol/L 05/06/2025 2:34 PM EDT [facility] CHLORIDE 105 98 - 109 mmol/L 05/06/2025 2:34 PM EDT [facility] CARBON DIOXIDE 22 22 - 32 mmol/L 05/06/2025 2:34 PM EDT [facility] ANION GAP 7 5 - 15 mmol/L 05/06/2025 2:34 PM EDT [facility] BLOOD UREA NITROGEN 18 5 - 23 mg/dL 05/06/2025 2:34 PM EDT [facility] CREATININE 0.94 0.40 - 1.00 mg/dL 05/06/2025 2:34 PM EDT [facility] Comment:METHOD TRACEABLE TO IDMS STANDARD GLUCOSE 94 65 - 99 mg/dL 05/06/2025 2:34 PM EDT [facility] CALCIUM 8.6 8.5 - 10.5 mg/dL 05/06/2025 2:34 PM EDT [facility] TOTAL PROTEIN 7.6 6.0 - 8.0 g/dL 05/06/2025 2:34 PM EDT [facility] ALBUMIN 3.9 3.2 - 5.3 g/dL 05/06/2025 2:34 PM EDT [facility] ALKALINE PHOSPHATASE 60 39 - 130 U/L 05/06/2025 2:34 PM EDT [facility] AST 25 <=41 U/L 05/06/2025 2:34 PM EDT [facility] ALT 36(H) <=31 U/L 05/06/2025 2:34 PM EDT [facility] BILIRUBIN,TOTAL 0.7 0.3 - 1.2 mg/dL 05/06/2025 2:34 PM EDT [facility] EGFR Non-Race Dependent 83 >=60 ml/min/1.7 3sq.m 05/06/2025 2:34 PM EDT [facility] Comment: eGFR not reported due to non-numeric value for Creatinine. Reported eGFR is based on the CKD-EPI 2020 equation that does not use a race coefficient. Blood Venous blood / Unknown Venipuncture / Unknown 05/06/2025 2:09 PM EDT 05/06/2025 2:11 PM EDT us Gary Gómez DO LAB BLOOD ORDERABLES Fi nal Result [facility] [address] [place] [address], * Mrsa Pcr nasal swab (04/11/2025 3:49 PM EDT) MRSA PCR NASAL Negative Negative 04/11/2025 11:56 PM EDT [facility] Swab 04/11/2025 3:49 PM EDT 04/11/2025 3:51 PM EDT us Tk Herrera MD MICROBIOLOGY - GENERAL ORDERABLE S Final Result [facility] [address] [place] [address], * Protime & INR (04/11/2025 3:49 PM EDT) PROTIME 11.7 9.8 - 13.2 sec 04/11/2025 10:54 PM EDT [facility] INR 1.0 0.9 - 1.2 04/11/2025 10:54 PM EDT [facility] Blood Venous blood / Unknown Venipuncture / Unknown 04/11/2025 3:49 PM EDT 04/11/2025 3:51 PM EDT us Tk Herrera MD LAB BLOOD ORDERABLES Final Resul t [facility] [address] [place] [address], * Basic Metabolic Panel (04/11/2025 3:49 PM EDT) SODIUM 141 134 - 146 mmol/L 04/11/2025 11:21 PM EDT [facility] POTASSIUM 3.7 3.5 - 5.0 mmol/L 04/11/2025 11:21 PM EDT [facility] CHLORIDE 106 98 - 109 mmol/L 04/11/2025 11:21 PM EDT [facility] CARBON DIOXIDE 27 22 - 32 mmol/L 04/11/2025 11:21 PM EDT [facility] ANION GAP 8 5 - 15 mmol/L 04/11/2025 11:21 PM EDT [facility] BLOOD UREA NITROGEN 8 5 - 23 mg/dL 04/11/2025 11:21 PM EDT [facility] CREATININE 0.69 0.40 - 1.00 mg/dL 04/11/2025 11:21 PM EDT [facility] Comment:METHOD TRACEABLE TO IDMS STANDARD GLUCOSE 91 65 - 99 mg/dL 04/11/2025 11:21 PM EDT [facility] CALCIUM 8.7 8.5 - 10.5 mg/dL 04/11/2025 11:21 PM EDT [facility] EGFR Non-Race Dependent >90 >=60 ml/min/1.7 3sq.m 04/11/2025 11:21 PM EDT [facility] Comment: Reported eGFR is based on the CKD-EPI 2020 equation that does not use a race coefficient. Blood Venous blood / Unknown Venipuncture / Unknown 04/11/2025 3:49 PM EDT 04/11/2025 3:51 PM EDT us Tk Herrera MD LAB BLOOD ORDERABLES Final Resul t [facility] [address] [place] [address], from Last 3 Months Insurance [employer] [employer] Advance Directives * Full Code (Latest Code Status on File) Date Activated Date Inactivated Comments 03/17/2020 9:05 AM 03/19/2020 1:38 PM * Full Code Date Activated Date Inactivated Comments 03/09/2020 9:23 PM 03/10/2020 1:18 PM Care Teams Sound Printer Relationship Specialty Start Date End Date Rojelio Donato MD PCP - General Family Medicine 01/24/20
--- NOTE | 2025-05-26 14:02 | MR_ITS ---
The [address] [address] Patient Name: ABDIRAHMAN VARGAS MRN: [id number] date: 1995 Sex: F Assigned Patient Location: MRI Current Patient Location: MRI Accession/Order Number: [id number] Exam Date: 05/26/2025 14:15 Report Date: 05/26/2025 23:20 At the request of: VALERIE WAY MD Procedure: MR head/brain wo con MR head/brain wo con 05/26/2025 2:51 PM SIGN AND SYMPTOMS: ^Migraine, Hydrocephalus PROTOCOL: Multiplanar multisequence MR images of the brain without IV contrast COMPARISON: None. FINDINGS: Extra axial spaces: Age appropriate. Hemorrhage: None. Ventricular system: Within normal limits. Basal cisterns: Within normal limits and not effaced. Cerebral parenchyma: Normal in signal. 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 Midline shift: None.. Cerebellum: There is 7 mm of downward displacement of the cerebellar tonsils crowding the foramen magnum. Brainstem: Within normal limits. OTHER: Calvarium: Normal marrow signal. Vascular system: Satisfactory flow voids within the anterior and posterior circulation. Visualized Paranasal sinuses: Within normal limits. Visualized Orbits: There is mild prominence of CSF along the optic nerve sheath complex greatest near the head of the optic nerves. Visualized upper cervical spine: Within normal limits. Sella and skull base: There is mild flattening of the dome of the pituitary which is atypical for the patient's age. MR/MR head/brain wo con IMPRESSION: Flattening of the dome of the pituitary is noted along with prominence of CSF along the optic nerve sheath complex. There is accompanying downward displacement of the cerebellar tonsils measuring 7 mm. There is crowding of the foramen magnum as a result. 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 Impression dictated by: Ethan Chery M.D. 05/26/2025 11:20 PM Dictation Location: [place] [address] Electronically authenticated by: [id number] Y Date: 05/26/2025 23:20
--- OUTSIDE RECORDS SUMMARY | 2025-05-26 14:14 | XMS_ITS | CCD ---
Author Organization [facility] Care Team Providers Care Field Service Rep Name Role Phone Noah Walton DO Unavailable [phone] SEAMUS Chaves, DR PADILLA Primary Care Unavailable TARA SAN Admitting Unavailable TARA SAN Attending Unavailable TARA SAN Consulting Unavailable SEAMUS ., DR PADILLA Primary Care Unavailable ULYSSES ., MIMI STEEN Attending Unavailable ULYSSES .MIMI Admitting Unavailable GUY, AMAR Admitting Unavailable GUY, AMAR Attending Unavailable SEAMUS ., DR PADILLA [...] HOTrevin ., DR PADILLA Primary Care Unavailable TARA SAN Consulting Unavailable MCKENZIE EDGAR Admitting Unavailable MCKENZIE EDGAR Attending Unavailable SEAMUS ., DR PADILLA Primary Care Unavailable YUN, DR AYAD Matamoros Consulting Unavailable MCKENZIE EDGAR Consulting Unavailable ISABELLE ., DR ESTEBAN Consulting Unavailable HOY ., DR PADILLA Primary Care Unavailable ISABELLE ., DR ESTEBAN Attending Unavailable ISABELLE ., DR ESTEBAN Admitting Unavailable TALA, MCKENZIE Consulting Unavailable SEAMUS ., DR PADILLA Primary Care Unavailable MCKENZIE EDGAR Attending Unavailable MCKENZIE EDGAR Admitting Unavailable NISREEN DUNNE Consulting Unavailable [...] ESTEBAN Consulting Unavailable AYAD BIGGS Consulting Unavailable MCKENZIE EDGAR Admitting Unavailable MCKENZIE EDGAR Attending Unavailable HOY ., DR PADILLA Primary Care Unavailable WEST, DR AYAD Matamoros Consulting Unavailable MCKENZIE EDGAR Consulting Unavailable CHARU, NATALIE M Consulting Unavailable MERLE ., VIN Attending Unavailable MERLE ., VIN Admitting Unavailable HOY ., DR PADILLA Primary Care Unavailable CHARUNATALIE BERRY Consulting Unavailable PAY ., DR CROSS Attending [...] Care Unavailable Ish Hector Consulting Unavailable Jolene Timmons Consulting Unavailable KERA COONEY Attending Unavailable KERA COONEY Attending Unavailable Carmen Coello Attending Unavailable Valerie Way MD Primary Care Provider [phone] NOAH WALTON Attending Unavailable NOAH WALTON Attending Unavailable VALERIE WAY Primary Care Unavailable DELFINA TANNER Referring Unavailable VALERIE WAY Primary Care Unavailable JOSIE CRESPO Attending Unavailab DELFINA Rogers Admitting Unavailable DELFINA TANNER Attending Unavailable CIRO JIARADHAIN Referring Unavailable CIRO JIARADHAIN Referring Unavailable ANNETTE TANNERIN Attending Unavailable ANNETTE TANNERIN Attending Unavailable Allergies Allergy Classification Reported Allergen(s) Allergy Type Date of Onset Reaction(s) Facility (4 sources) meloxicam; Translations: [MELOXICAM] Drug Allergy 0 Other: See Comments [facility] (2 sources) Acetaminophen / HYDROcodone; Translations: [Estacada] Drug Allergy [facility] (2 sources) HYDROmorphone; Translations: [Dilaudid] Drug Allergy [facility] (1 source) meloxicam Drug Allergy [facility] (7 sources) meloxicam Drug Allergy 2 Headache [facility] Work Phone: (4 sources) HYDROcodone; Translations: [HYDROCODONE] Drug Allergy 6 Other [facility] (1 source) HYDROmorphone; Translations: [HYDROMORPHONE] Drug Allergy 5 [facility] (1 source) ALLERGIES NOT ON FILE; Translations: [ALLERGIES NOT ON FILE] Propensity to adverse reactions (disorder) [facility] Medications Current Medications Medication Drug Class(es) Dates Sig (Normalized) Sig (Original) 168 hr estradiol 0.90493 mg/hr transdermal system (8 sources) Estrogen Start: [...] on above: Take 37.5 mg by mout once daily. Completed/Discontinued Medications Medication Drug Class(es) [...] by viri every 6 hours as needed. [id number] 200 actuat albuterol 0.09 mg/actuat metered dose inhaler (3 sources) beta2-Adrenergic Agonist Start: 023 End: take 2 puff(s) by inhalation every [...] oral tablet (2 sources) Azole Antifungal Start: End: fluconazole (Diflucan) 150 MG tablet Indications: [...] [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] Onset: 04-01-2025 Episodic Administrative/social admission (1 source) Patient encounter [...] Other shelter (current) drug therapy; Translations: [OTH SKILLED NURSING CURRENT DRUG THERAPY] Onset: 12-31-2022 Episodic Other [...] Translations: [Obstructive sleep apnea (adult) (pediatric)] Chronic Superficial injury; contusion (1 source) Abrasion of abdominal wall, initial encounter; Translations: [Abrasion of abdominal wall, initial encounter] Onset: 05-06-2025 Episodic Unclassified (1 source) LOW BACK PAIN, UNSPECIFIED; Translations: [LOW BACK PAIN, UNSPECIFIED] Onset: 09-30-2022 Unclassified (1 source) Post-op Problem Onset: 05-06-2025 Unclassified (1 source) Post-op Issues Onset: 05-06-2025 Unclassified (2 sources) Post-op; Translations: [Post-op] Onset: 05-11-2025 Past or Other Problems Problem Classification Problem [...] Test Name Value Interpretation Reference Range Facility Office Visiton 05-11-2025 Follow-up visit [id number] Gricelda Salcido i 1995 F Date Provider Department Center 05/11/2025 Fito-DELFINA TANNER [facility] SURG Second Fl No family history on file Level of Service:71615 MD POSTOP FOLLOW UP VISIT RELATED TO ORIGINAL PX Reason for Visit and Comments: Post-op [483] - Patient is here for s/p 04/29/2025 robotic incisional hernia repair with mesh. Normal [facility] C-REACTIVE PROTEINon 025 C REACTIVE PROTEIN 1.8 mg/dL High <=0.7 [facility] Comment on above: Performed By: #### C RP #### [facility] ([address] [address] VIR CBC WITH AUTO DIFFERENTIALon 05-06-2025 BASOPHILS ABSOLUTE COUNT (10*3/UL) BY AUTOMATED COUNT 0.0 10*3/uL Normal 0.0-0.2 [facility] Comment on above: Performed By: #### C BCA #### [facility] ([address] [address] VIR BASOPHILS RELATIVE PERCENT BY AUTOMATED COUNT 0.4 % Normal [facility] Comment on above: Performed By: #### C BCA #### [facility] ([address] [place] [address] VIR CELLAVISION DIFFERENTIAL TYPE AUTOMATED DIFFERENTIAL Normal [facility] Comment on above: Performed By: #### C BCA #### [facility] ([address] [address] VIR Eosinophils (Bld) [#/Vol] 0.1 10*3/uL Normal 0.0-0.4 [facility] Comment on above: Performed By: #### C BCA #### [facility] ([address] [address] VIR EOSINOPHILS RELATIVE PERCENT BY AUTOMATED COUNT 0.7 % Normal [facility] Comment on above: Performed By: #### C BCA #### [facility] ([address] [address] VIR Erythrocyte distribution width (RBC) [Ratio] 13.4 % Normal 11.5-15 [facility] Comment on above: Performed By: #### C BCA #### [facility] ([address] [address] VIR Hematocrit (Bld) [Volume fraction] 42.0 % Normal 35-47 [facility] Comment on above: Performed By: #### C BCA #### [facility] ([address] [address] VIR Hemoglobin (Bld) [Mass/Vol] 14.2 g/dL Normal 11.7-15.5 [facility] Comment on above: Performed By: #### C BCA #### [facility] ([address] [address] VIR LYMPHOCYTES ABSOLUTE COUNT (10*3/UL) BY AUTOMATED COUNT 2.3 10*3/uL Normal 1.0-3.5 [facility] Comment on above: Performed By: #### C BCA #### [facility] ([address] [address] VIR LYMPHOCYTES RELATIVE PERCENT BY AUTOMATED COUNT 22.7 % Normal [facility] Comment on above: Performed By: #### C BCA #### [facility] ([address] [address] VIR MCH (RBC) [Entitic mass] 30.0 pg Normal 27-34 [facility] Comment on above: Performed By: #### C BCA #### [facility] ([address] [address] VIR MCHC (RBC) [Mass/Vol] 33.9 g/dL Normal 32-36 [facility] Comment on above: Performed By: #### C BCA #### [facility] ([address] [address] VIR MCV (RBC) [Entitic vol] 88 fL Normal 80-100 [facility] Comment on above: Performed By: #### C BCA #### [facility] ([address] [address] VIR MONOCYTES ABSOLUTE COUNT (10*3/UL) BY AUTOMATED COUNT 0.7 10*3/uL Normal 0.0-0.9 [facility] Comment on above: Performed By: #### C BCA #### [facility] ([address] [address] VIR MONOCYTES RELATIVE PERCENT BY AUTOMATED COUNT 7.1 % Normal [facility] Comment on above: Performed By: #### C BCA #### [facility] ([address] [address] VIR NEUTROPHILS ABSOLUTE COUNT BY AUTOMATED COUNT 7.1 10*3/uL High 1.5-6.6 [facility] Comment on above: Performed By: #### C BCA #### [facility] ([address] [address] VIR NEUTROPHILS RELATIVE PERCENT BY AUTOMATED COUNT 69.1 % Normal [facility] Comment on above: Performed By: #### C BCA #### [facility] ([address] [place] [address] VIR Platelet mean volume (Bld) [Entitic vol] 7.9 fL Normal 7-12 [facility] Comment on above: Performed By: #### C BCA #### [facility] ([address] [place] [address] VIR Platelets (Bld) [#/Vol] 277 10*3/uL Normal 150-450 [facility] Comment on above: Performed By: #### C BCA #### [facility] ([address] [place] [address] VIR RBC COUNT 4.75 X10E12/L Normal 3.8-5.2 [facility] Comment on above: Performed By: #### C BCA #### [facility] ([address] [place] [address] VIR WBC (Bld) [#/Vol] 10.2 10*3/uL Normal 4-11 [facility] Comment on above: Performed By: #### C BCA #### [facility] ([address] [place] [address] VIR COMPREHENSIVE METABOLIC PANE Salvador 05-06-2025 Albumin [Mass/Vol] 3.9 g/dL Normal 3.2-5.3 [facility] Comment on above: Performed By: #### C MP #### [facility] ([address] [place] [address] VIR ALP [Catalytic activity/Vol] 60 U/L Normal 39-130 [facility] Comment on above: Performed By: #### C MP #### [facility] ([address] [place] [address] VIR ALT [Catalytic activity/Vol] 36 U/L High <=31 [facility] Comment on above: Performed By: #### C MP #### [facility] ([address] [place] [address] VIR Anion gap [Moles/Vol] 7 mmol/L Normal 5-15 [facility] Comment on above: Performed By: #### C MP #### [facility] ([place] [address] [place] [address] VIR AST [Catalytic activity/Vol] 25 U/L Normal <=41 [facility] Comment on above: Performed By: #### C MP #### [facility] ([place] [address] [place] [address] VIR Bilirubin [Mass/Vol] 0.7 mg/dL Normal 0.3-1.2 [facility] Comment on above: Performed By: #### C MP #### [facility] ([address] [place] [address] VIR Calcium [Mass/Vol] 8.6 mg/dL Normal 8.5-10.5 [facility] Comment on above: Performed By: #### C MP #### [facility] ([address] [place] [address] VIR Chloride [Moles/Vol] 105 mmol/L Normal 98-109 [facility] Comment on above: Performed By: #### C MP #### [facility] ([place] [address] [place] [address] VIR CO2 [Moles/Vol] 22 mmol/L Normal 22-32 [facility] Comment on above: Performed By: #### C MP #### [facility] ([place] [address] [place] [address] VIR Creatinine [Mass/Vol] 0.94 mg/dL Normal 0.40-1.00 [facility] Comment on above: Result Comment: METH OD TRACEABLE TO IDMS STANDARD Performed By: #### C MP #### [facility] ([place] [address] [place] [address] VIR GFR/1.73 sq M.predicted among non-blacks MDRD (S/P/Bld) [Vol rate/Area] 83 mL/min/{1.73_m2} Normal >=60 [facility] Comment on above: Result Comment: eGFR not reported due to non-numeric value for Creatinine. Reported eGFR is based on the CKD-EPI 2020 equation that does not use a race coefficient. Performed By: #### C MP #### [facility] ([address] [place] [address] VIR Glucose [Mass/Vol] 94 mg/dL Normal 65-99 [facility] Comment on above: Performed By: #### C MP #### [facility] ([address] [place] [address] VIR Potassium [Moles/Vol] 4.0 mmol/L Normal 3.5-5.0 [facility] Comment on above: Performed By: #### C MP #### [facility] ([address] [place] [address] VIR Protein [Mass/Vol] 7.6 g/dL Normal 6.0-8.0 [facility] Comment on above: Performed By: #### C MP #### [facility] ([address] [place] [address] VIR Sodium [Moles/Vol] 134 mmol/L Normal 134-146 [facility] Comment on above: Performed By: #### C MP #### [facility] ([address] [place] [address] VIR Urea nitrogen [Mass/Vol] 18 mg/dL Normal 5-23 [facility] Comment on above: Performed By: #### C MP #### [facility] ([address] [place] [address] ABDOMEN AND PELVIS W CONT on 05-06-2025 CT ABDOMEN AND PELVIS W CONT CT ABDOMEN AND PELVIS W CONT Clinical history: Postoperative abdominal pain. History of [...] with cellulitis. Clinical is required. Finalized by Ish Shultz MD on 05/06/2025 3:46 PM [facility] HPon 04-29-2025 HP H&P reviewed. The patient was examined and there are no changes to the H&P. [facility] NURSNOTEon 04-29-2025 NURSNOTE Pt alert and oriente d x4, No signs of respiratory distress, discharged in stable condition. Pt walks with a steady gait, without assistance. Pt verbalized discharge instructions and follow up information. Pt transported via wheelchair to vehicle with responsible alliance party at this time. [facility] OPNOTEon 04-29-2025 OPNOTE - Attestation signed by Delfina Tanner MD at 05/05/2025 2:28 PM Please refer to my operation report. Date: 04/29/2025 Location: [facility] OR Name: Connie Salcido, : 1995, Diagnosis Pre-op Diagnosis * Incisional hernia, without obstruction or gangrene [K43.2] Post-op Diagnosis * Incisional hernia, without obstruction or gangrene [K43.2] Procedures * ROBOTIC INCISIONAL HERNIA REPAIR WITH MESH Surgeons Primary: Delfina Tanner MD Resident - Assisting: John Pena MD Procedure Summary Anesthesia: General ASA: IV Estimated Blood Loss: Minimal Total IV Fluids: 1.6 mLDrains: * None in log * Implants Type Name Action Serial No. Mesh MESH,SURCIGAL,PROGRIP ,[id number] - [id number] Implanted Staff: Telephone Maintainer: Daphney Garcia RN; Mckenzie Ko RN Relief Telephone Maintainer: Daphney Garcia RN; Lamont Price RN Relief Scrub: Guille Goznales CST; Juliet Ledesma CST Scrub Person: Darwin Bettencourt CST Indications: Connie Salcido is an 29 y.o. female who is having surgery for Incisional hernia, without obstruction or gangrene [K43.2]. Findings: large ventral hernia. Central obesity, normal anatom Complications: None; patient tolerated the procedure well. Disposition: PACU - hemodynamically stable. Condition: stable Specimens Collected: No specimens collected during this procedure. Attending Attestation: I was present and scrubbed for the entire procedure. Delfina Tanner [facility] OPNOTE ROBOTIC INCISIONAL HERNIA REPAIR WITH MESH Operative Note Date: 04/29/2025 Location: [facility] OR Name: Connie Salcido, : 1995, Diagnosis Pre-op Diagnosis * Incisional hernia, without obstruction or gangrene [K43.2] Post-op Diagnosis * Incisional hernia, without obstruction or gangrene [K43.2] Procedures * ROBOTIC INCISIONAL HERNIA REPAIR WITH MESH Surgeons Primary: Delfina Tanner MD Resident - Assisting: John Pena MD Procedure Summary Anesthesia: General ASA: IV Estimated Blood Loss: Minimal Total IV Fluids: 1500 mL Drains: * None in log * Implants Type Name Action Serial No. Mesh MESH,SURCIGAL,PROGRIP ,[id number] - [id number] Implanted Staff: Telephone Maintainer: Daphney Garcia RN; Mckenzie Ko RN Relief Telephone Maintainer: Daphney Garcia RN; Lamont Price RN Relief Scrub: Guille Gonzales CST; Juliet Ledesma CST Scrub Person: Darwin Bettencourt CST Indications: Connie Salcido is an 29 y.o. female who is having surgery for Incisional hernia, without obstruction or gangrene [K43.2]. Robotic incisional hernia repair with mesh was offered to the patient, informed consent was obtained. Procedure Details: The patient was seen in the preoperative area. The risks, benefits, complications, treatment options, non-operative alternatives, expected recovery and outcomes were discussed with the patient. The possibilities of reaction to medication, pulmonary aspiration, injury to surrounding structures, bleeding, recurrent infection, the need for additional procedures, failure to diagnose a condition, and creating a complication requiring transfusion or operation were discussed with the patient. The patient concurred with the proposed plan, giving informed consent. The site of surgery was properly noted/marked if necessary per policy. The patient has been actively warmed in preoperative area. Preoperative antibiotics have been ordered and given within 1 hours of incision. Venous thrombosis prophylaxis have been ordered including bilateral sequential compression devices Robotic ventral hernia repair with mesh was offered to the patient. The risk include but not limited to infection, bleeding, recurrence, bowel injury, seroma, heart attack, chronic pain. Patient expressed understanding, agreed to proceed. The patient was brought to the operating room, laid on the operating table in supine position. General anesthesia was initiated. Abdomen was prepped and draped in usual sterile fashion. Time-out was completed. Left subcostal 8 mm trocar was inserted using Optiview technique under direct visualization. CO2 insufflation was started. Another 2 8 mm trocar was inserted from left middle, and lower abdomen. 8 cm between each trocars. The da Romy Xi was docked. Left midabdomen 8 mm trocar as camera trocar with 30 degree up camera. Left upper quadrant trocar with the monopolar scissors, left lower quadrant trocar with the bipolar grasper. Large amount of omentum herniated into the supraumbilical fascial defect. Lysis of adhesion was performed with monopolar scissors and blunt dissection to take down the omentum from the large primary midline hernia defect. Large supraumbilical midline hernia fascia defect was identified 7 cm x 6 cm. The incarcerated omentum was mobilized from the supraumbilical fascial defect. A longitudinal left lateral posterior rectus sheath incision was made with monopolar scissors 15cm long. Posterior rectus sheath flap was raised with monopolar scissor. The posterior rectus sheath was divided on the edge of the fascial defect. Right side posterior rectus sheath flap was also raised in the same way. The fascial defect was measured with a ruler, which is 7 cm long and the 6 cm wide. The fascia defect was approximated with permanent 1-0 V- lock running suture. Then 15 x 15 cm uncoated ProGrip mesh was obtained, rinsed by gentamicin solution. Then the mesh was inserted through the 8 mm trocar into peritoneal cavity. The mesh was placed to the posterior rectus space, the Velcrol side is self fixed to the fascia. The mesh was affixed to the fascia with1-0 Tycron interrupted sutures superiorly and right laterally. Then the posterior rectus sheath flap was closed with 2 0 V lock running suture. Two small hole on the peritoneal flap was closed with 1-0 Vicryl figure-eight sutures. Da Romy Xi was undocked. CO2 was desufflated, trocars were removed. Incisions were closed by 4 Monocryl interrupted subcuticular sutures. Dermabond was applied. Surgery was completed without complication, minimal blood loss, Needle count and the sponge count were correct. Without specimen. Abdominal binder was applied. Findings: Supraumbilical midline fascial defect 7 cm x 6 cm with significant adhesion. Complications: None; patient tolerated the procedure well. Disposition: PACU - hemodynamically stable. Condition: stable I was present during the entire operatio (more content not included)... Normal [facility] POCT GLUCOSE METER UNSOLICIT ED RESULTSon 04-29-2025 Glucose [Mass/Vol] 92 mg/dL Normal 70-105 [facility] Comment on above: Order Comment: Waive d Testing in the ED is performed under the ED CLIA certificate #[id number]. Result Comment: ngro aminata Performed By: #### L [id number] ####[facility] ([facility]AK[facility] [place] [address] BASIC METABOLIC PANELon Anion gap [Moles/Vol] 8 mmol/L Normal 5-15 [facility] Comment on above: Performed By: #### B MP #### [facility] ([facility]) [address] [place] [address] VIR Calcium [Mass/Vol] 8.7 mg/dL Normal 8.5-10.5 [facility] Comment on above: Performed By: #### B MP #### [facility] ([facility]) [address] [place] [address] VIR Chloride [Moles/Vol] 106 mmol/L Normal 98-109 [facility] Comment on above: Performed By: #### B MP #### [facility] ([facility]) [address] [place] [address] VIR CO2 [Moles/Vol] 27 mmol/L Normal 22-32 [facility] Comment on above: Performed By: #### B MP #### [facility] ([facility]) [address] [place] [address] VIR Creatinine [Mass/Vol] 0.69 mg/dL Normal 0.40-1.00 [facility] Comment on above: Result Comment: METH OD TRACEABLE TO IDMS STANDARD Performed By: #### B MP #### [facility] ([facility]) [address] [place] [address] VIR EGFR (CKD-EPI) NON-RACE DEPENDENT >^90 Normal >=60 [facility] Comment on above: Result Comment: Repo rted eGFR is based on the CKD-EPI 2020 equation that does not use a race coefficient. Performed By: #### B MP #### [facility] ([facility]) [address] [place] [address] VIR Glucose [Mass/Vol] 91 mg/dL Normal 65-99 [facility] Comment on above: Performed By: #### B MP #### [facility] ([facility]) [address] [place] [address] VIR Potassium [Moles/Vol] 3.7 mmol/L Normal 3.5-5.0 [facility] Comment on above: Performed By: #### B MP #### [facility] ([facility]) [address] [place] [address] VIR Sodium [Moles/Vol] 141 mmol/L Normal 134-146 [facility] Comment on above: Performed By: #### B MP #### [facility] ([facility]) [address] [place] [address] VIR Urea nitrogen [Mass/Vol] 8 mg/dL Normal 5-23 [facility] Comment on above: Performed By: #### B MP #### [facility] ([facility]) [address] [place] [address] VIR CBC WITH AUTO DIFFERENTIALon 04-11-2025 BASOPHILS ABSOLUTE COUNT (10*3/UL) BY AUTOMATED COUNT 0.0 10*3/uL Normal 0.0-0.2 [facility] Comment on above: Performed By: #### C BCA #### [facility] ([facility]) [address] [place] [address] VIR BASOPHILS RELATIVE PERCENT BY AUTOMATED COUNT 0.6 % Normal [facility] Comment on above: Performed By: #### C BCA #### [facility] ([facility]) [address] [place] [address] VIR CELLAVISION DIFFERENTIAL TYPE AUTOMATED DIFFERENTIAL Normal [facility] Comment on above: Performed By: #### C BCA #### [facility] ([facility]) [address] [place] [address] VIR Eosinophils (Bld) [#/Vol] 0.0 10*3/uL Normal 0.0-0.4 [facility] Comment on above: Performed By: #### C BCA #### [facility] ([facility]) [address] [place] [address] VIR EOSINOPHILS RELATIVE PERCENT BY AUTOMATED COUNT 0.3 % Normal [facility] Comment on above: Performed By: #### C BCA #### [facility] ([facility]) [address] [place], [place] [address] VIR Erythrocyte distribution width (RBC) [Ratio] 13.5 % Normal 11.5-15 [facility] Comment on above: Performed By: #### C BCA #### [facility] ([facility]) [address] [place] [address] VIR Hematocrit (Bld) [Volume fraction] 42.3 % Normal 35-47 [facility] Comment on above: Performed By: #### C BCA #### [facility] ([facility]) [address] [place] [address] VIR Hemoglobin (Bld) [Mass/Vol] 14.0 g/dL Normal 11.7-15.5 [facility] Comment on above: Performed By: #### C BCA #### [facility] ([facility]) [address] [place] [address] VIR LYMPHOCYTES ABSOLUTE COUNT (10*3/UL) BY AUTOMATED COUNT 2.6 10*3/uL Normal 1.0-3.5 [facility] Comment on above: Performed By: #### C BCA #### [facility] ([facility]) [address] [place] [address] VIR LYMPHOCYTES RELATIVE PERCENT BY AUTOMATED COUNT 33.3 % Normal [facility] Comment on above: Performed By: #### C BCA #### [facility] ([facility]) [address] [place] [address] VIR MCH (RBC) [Entitic mass] 29.9 pg Normal 27-34 [facility] Comment on above: Performed By: #### C BCA #### [facility] ([facility]) [address] [place] [address] VIR MCHC (RBC) [Mass/Vol] 33.1 g/dL Normal 32-36 [facility] Comment on above: Performed By: #### C BCA #### [facility] ([facility]) [address] [place] [address] VIR MCV (RBC) [Entitic vol] 91 fL Normal 80-100 [facility] Comment on above: Performed By: #### C BCA #### [facility] ([facility]) [address] [place] [address] VIR MONOCYTES ABSOLUTE COUNT (10*3/UL) BY AUTOMATED COUNT 0.2 10*3/uL Normal 0.0-0.9 [facility] Comment on above: Performed By: #### C BCA #### [facility] ([facility]) [address] [place] [address] VIR MONOCYTES RELATIVE PERCENT BY AUTOMATED COUNT 3.1 % Normal [facility] Comment on above: Performed By: #### C BCA #### [facility] ([facility]) [address] [place] [address] VIR NEUTROPHILS ABSOLUTE COUNT BY AUTOMATED COUNT 4.9 10*3/uL Normal 1.5-6.6 [facility] Comment on above: Performed By: #### C BCA #### [facility] ([facility]) [address] [place] [address] VIR NEUTROPHILS RELATIVE PERCENT BY AUTOMATED COUNT 62.7 % Normal [facility] Comment on above: Performed By: #### C BCA #### [facility] ([facility]) [address] [place] [address] VIR Platelet mean volume (Bld) [Entitic vol] 8.5 fL Normal 7-12 [facility] Comment on above: Performed By: #### C BCA #### [facility] ([facility]) [address] [place] [address] VIR Platelets (Bld) [#/Vol] 250 10*3/uL Normal 150-450 [facility] Comment on above: Performed By: #### C BCA #### [facility] ([facility]) [address] [place] [address] VIR RBC COUNT 4.67 X10E12/L Normal 3.8-5.2 [facility] Comment on above: Performed By: #### C BCA #### [facility] ([facility]) [address] [place] [address] VIR WBC (Bld) [#/Vol] 7.8 10*3/uL Normal 4-11 [facility] Comment on above: Performed By: #### C BCA #### [facility] ([facility]) [address] [place] [address] VIR MRSA PCR NASAL SWABon 2024 MRSA PCR NASAL SWAB Negative Normal Negative [facility] Comment on above: Performed By: #### M RSPCR #### [facility] ([facility]) [address] [place] [address] VIR PROTIME AND INRon 04-11-2025 INR 1.0 Normal 0.9-1.2 [facility] Comment on above: Performed By: #### P INR #### [facility] ([facility]) [address] [place] [address] VIR PT Coag (PPP) [Time] 11.7 s Normal 9.8-13.2 [facility] Comment on above: Performed By: #### P INR #### [facility] ([facility]) [address] [place] [address] VIR 36on 04-01-2025 36 Called patient and surgery scheduled. [facility] [place] 36on 03-31-2025 36 Pt called stating that someone was to call her to schedule surgery. I advised pt that staff is in clinic at the moment, but will be reaching out to her to schedule. Pt verbalized understanding. [facility] [place] Telephoneon 03-31-2025 Telephone [phone] Gricelda Salcido i 1995 F Date Provider Department Center 03/31/2025 SAUNDRA LEAHY [facility] No family history on file [facility] [place] 29on 03-30-2025 29 Addended by: LIBBY OCONNELL on: 04/01/2025 11:06 AM Modules accepted: Orders [facility] [place] Consulton 03-30-2025 Consult [id number] OmariGricelda morley i 1995 F Date Provider Department Center 03/30/2025 DELFINA WILSON [facility] Second [facility] No family history on file Level of Service:02355 MD OFFICE/OUTPATIENT NEW MODERATE MDM 45 MINUTES Reason for Visit and Comments: Consult [484] - Patient here for a consult of a ventral hernia. [facility] [place] HPon 03-30-2025 HP mraSubjective Patient ID: Connie Salcido is a [...] past 36 hours). No follow-ups on file. Normal [facility] IGP,APTIMA HPV,AGE GDLNon AGE GDLN ACOG TESTING Note . [facility] Comment on above: TESTS RESULT FLAG UN ITS REF RANGE LAB Clinician Provided Cytology Information Source.............Vagina No. of containers..01 ThinPrep Vial Age Algo ACOG Ofe... 30-65 01 FLAG LEGEND: L-Low Normal,H-High Normal,LL-Alert Low,HH-Alert High <-Panic Low,>-Panic High,A-Abnormal,AA-Critical Abnormal Performed at: 01 =[address] [address] Martha Chen MD, HPV APTIMA Negative Negative [facility] Comment on above: This nucleic acid am plification test detects fourteen high- risk HPV types (16,18,31,33,35,39,45,51,52,56,58,59,66,68) without differentiation. Performed at: =[address] [id number] Machine Clipper: Martha Chen MD, Phone: [phone] Performed at: [address] [id number] Machine Clipper: Martha Chen MD, Phone: [phone] IGP, APTIMA HPV, RFX 16/18,45 Note . [facility] Comment on above: TESTS RESULT FLAG U NITS REF RANGE LAB DIAGNOSIS: 02 NEGATIVE FOR INTRAEPITHELIAL LESION OR MALIGNANCY. Specimen adequacy: 02 Satisfactory for evaluation. Performed by: Sandro Bo, Data Management Manager ([facility]) . 02 Note: Note 02 The [...] <-Panic Low,>-Panic High,A-Abnormal,AA-Critical Abnormal Performed at: [address] [address] Martha Chen MD, [facility] .[employer] [facility] Patient Letter FTon 2023 Patient Letter [facility] January 06, 2024 CONNIE SALCIDO [address] [place] [address] : 1995 Dear Connie, You missed your [...] [facility] [address], [place] [address] [facility] ED Note-Physicianon 08-20-20 ED Note-Physician [id number]# 1.00TIFF [facility] Screenson 08-20-2023 Screens [id number] .00TIFF [facility] Ambulatory Visit Summaryon 1 10-20-2022 Ambulatory Visit Summary CONNIE SALCIDO :1995 Visit Date:08/19/2023 Ambulatory Visit Instructions Your Diagnosis Kidney stones Asymptomatic microscopic hematuria Mixed incontinence OAB (overactive bladder) Tests Performed Urnls Dip Stick Auto w/o Microscopy POC 970[address] Your Care Team Attending Physician - ADÁN Coello APRN, Carmen Hutchinson Primary Care Physician - Valerie Way MD This Is Your Medications List APAP/butalbital/caffe ine [...] KERA COONEY PA-C Where: [facility] Patient Educationon 08-19-20 23 Patient Education Obstetrics [...] health care provider. General instructions ? Take lmhx-rcf-nlizjvj and prescription medicines only as told by [...] ordered. However did get CT done @ [facility] 08/14/23 DX: Microscopic Hematuria, Hx of Kidney Stones, Nocturia, Stress Incontinence & Frequency Last Stone Procedure 01/25/21 ([facility]) Denies flank pain. Has been lower abdominal discomfort for the past week. Did go to [facility] 08/14/23. frequency during the day, getting [...] that she is aware of. Seen at [facility] for RLQ abdominal discomfort 08/14/23 - [...] day(s), # 90 tab(s), Refills(s) 0, Pharmacy: [facility], 154, cm, 08/19/23 15:05:00 EST, Height/Length Dosing, 129.5, kg, 08/19/23 15:05:00 EST, Weight Dosing Follow-up No qualifying data available Patient Education Kidney Stones, Qrzo-cv-Dydx Hematuria, Adult Overactive Bladder, Adult Problem List/Past [...] Oral, Daily Allergies Dilaudid (Nausea and vomiting) [place] (Nausea and vomiting) Social History Alcohol - Denies Alcohol Use, 01/19/2021 Substance Abuse Tobacco Never (less than 100 in lifetime) Tobacco Use:. Never Smokeless Tobacco Use:. Household tobacco concerns: No. Yes, 08/19/2023 Family History Heart disease: Mother. Kidney stone: Mother. Migraine: Mother. Immunizations Vaccine Date Status influenza virus vaccine, inactivated 06/18/2022 Recorded SARS-CoV-2 (COVID-19) mRNAMUL.ORD![id number] 06/18/2022 Recorded SARSCoV2 mRNA(fsfwgkoah-sqoc-a ucros) vac 12/03/2021 Recorded SARSCoV2 mRNA(mmpcepwsy-nrpm-j ucros) vac 10/25/2021 R (more content not included)... Normal [facility] Comment on above: Result Comment: Elec tronically Signed By: ADÁN Coello APRN, Carmen Hutchinson\.br\Date and Time Signed: 08/19/23 16:30 EST PAP ACOG PANEL 2: 21 to 29on 12-24-2022 . . Normal [facility] Comment on above: Performed By: #### L ACT #### [facility] [address] [address] [address] Tho Hardy Age Gdln ACOG Testing 19- [facility] Comment on above: Performed By: #### L ACT #### [facility] [address] [place], [place] [address] Dr. Tho Hardy DIAGNOSIS: Comment [facility] Comment on above: Result Comment: NEGA TIVE FOR INTRAEPITHELIAL LESION OR MALIGNANCY. Performed By: #### L ACT #### [facility] [address] [place], [place] [address] Dr. Tho Hardy Methodology: Comment [facility] Comment on above: Result Comment: This liquid based ThinPrep(R) pap test was screened with the use of an image guided system. Performed By: #### L ACT #### [facility] [address] [place] [address] Dr. Tho Hardy Note: Comment Normal [facility] Comment on above: Result Comment: The Pap smear is a screening test designed to aid in the detection of premalignant and malignant conditions of the uterine cervix. It is not a diagnostic procedure and should not be used as the sole means of detecting cervical cancer. Both false-positive and false-negative reports do occur. . Performed By: #### L ACT #### [facility] [address] [place] [address] Dr. Tho Hardy Performed by: Comment Normal [facility] Comment on above: Result Comment: Julieta Choudhary, Data Management Manager ([employer]) Performed By: #### L ACT #### [facility] [address] [place] [address] Dr. Tho Hardy Reflex Criteria: Comment Normal [facility] Comment on above: Result Comment: The HPV DNA reflex criteria were not met with this specimen result therefore, no HPV testing was performed. . Performed By: #### L ACT #### [facility] [address] [place] [address] Dr. Tho Hardy Specimen adequacy: Comment Normal [facility] Comment on above: Result Comment: Sati sfactory for evaluation. Endocervical and/or squamous metaplastic cells (endocervical component) are present. Performed By: #### L ACT #### [facility] [address] [place] [address] Dr. Tho Hardy XR RIBS LT PA [...] by: AYAD MALCOLM Date: 2022-11-14 07:04 Normal [facility] XR ANKLE LT MIN 3 Von 2022 XR ANKLE LT MIN 3 V EXAM: XR ANKLE LT NC N 3 V HISTORY: Pain of left [...] NISREEN DUNNE Date: 2022 15:34 Normal [facility] CBC AUTO DIFFon 10-14-2022 BASO # 0.0 103/ul Normal 0.0-0.1 [facility] Comment on above: Performed By: #### C BC #### [facility] [address] [place] [address] Dr. Tho Hardy Basophils/100 WBC (Bld) 0.3 % Normal 0.2-2.0 [facility] Comment on above: Performed By: #### C BC #### [facility] [address] [place] [address] Dr. Tho Hardy EO # 0.1 103/ul Normal 0.0-0.7 [facility] Comment on above: Performed By: #### C BC #### [facility] [address] [place] [address] Dr. Tho Hardy Eosinophils/100 WBC (Bld) 1.5 % Normal 0.9-7.0 [facility] Comment on above: Performed By: #### C BC #### [facility] [address] [place] [address] Dr. Tho Hardy Erythrocyte distribution width (RBC) [Ratio] 12.7 % Normal 11.0-15.0 [facility] Comment on above: Performed By: #### C BC #### [facility] [address] [place] [address] Dr. Tho Hardy Hematocrit (Bld) [Volume fraction] 44.9 % Normal 36.0-48.0 [facility] Comment on above: Performed By: #### C BC #### [facility] [address] [place] [address] Dr. Tho Hardy Hemoglobin (Bld) [Mass/Vol] 14.3 g/dL Normal 12.0-16.0 [facility] Comment on above: Performed By: #### C BC #### [facility] [address] [place] [address] Dr. Tho Hardy IG # 0.02 10e3/ul Normal 0.00-0.03 [facility] Comment on above: Performed By: #### C BC #### [facility] [address] [place] [address] Dr. Tho Hardy IG % 0.3 % Normal 0.0-0.5 [facility] Comment on above: Performed By: #### C BC #### [facility] [address] [place] [address] Dr. Tho Hardy LYMPH # 1.9 103/ul Normal 1.2-3.8 [facility] Comment on above: Performed By: #### C BC #### [facility] [address] [place] [address] Dr. Tho Hardy Lymphocytes/100 WBC (Bld) 27.7 % Normal 20.5-60.0 [facility] Comment on above: Performed By: #### C BC #### [facility] [address] [place] [address] Dr. Tho Hardy MANUAL DIFF REQ NO Normal [facility] Comment on above: Performed By: #### C BC #### [facility] [address] [place] [address] Dr. Tho Hadry MCH (RBC) [Entitic mass] 30.3 pg Normal 26.7-34.0 [facility] Comment on above: Performed By: #### C BC #### [facility] [address] [address] [address] Tho Hardy MCHC (RBC) [Mass/Vol] 31.8 g/dL Normal 29.9-35.2 [facility] Comment on above: Performed By: #### C BC #### [facility] [address] [place] [address] Dr. Tho Hardy MCV (RBC) [Entitic vol] 95.1 fL Normal 81.0-99.0 [facility] Comment on above: Performed By: #### C BC #### [facility] [address] [place] [address] Dr. Tho Hardy MONO # 0.5 103/ul Normal 0.3-0.8 [facility] Comment on above: Performed By: #### C BC #### [facility] [address] [place] [address] Dr. Tho Hardy Monocytes/100 WBC (Bld) 7.6 % Normal 1.7-12.0 [facility] Comment on above: Performed By: #### C BC #### [facility] [address] [place] [address] Dr. Tho Hardy NEUT # 4.2 103/ul Normal 1.4-6.5 [facility] Comment on above: Performed By: #### C BC #### [facility] [address] [place] [address] Dr. Tho Hardy Neutrophils/100 WBC (Bld) 62.6 % Normal 43.0-75.0 [facility] Comment on above: Performed By: #### C BC #### [facility] [address] [place] [address] Dr. Tho Hardy Platelet mean volume (Bld) [Entitic vol] 10.0 fL Normal 9.5-13.5 [facility] Comment on above: Performed By: #### C BC #### [facility] [address] [place] [address] Dr. Tho Hardy PLT 242 103/ul Normal 150-450 [facility] Comment on above: Performed By: #### C BC #### [facility] [address] [place] [address] Dr. Tho Hardy RBC 4.72 106/ul Normal 4.20-5.40 [facility] Comment on above: Performed By: #### C BC #### [facility] [address] [place] [address] Dr. Tho Hardy WBC 6.7 103/ul Normal 4.0-11.0 [facility] Comment on above: Performed By: #### C BC #### [facility] [address] [place] [address] Dr. Tho Hardy ER URINE PROFILEon 3 Bilirubin Ql (U) Negative Normal NEGATIVE [facility] Comment on above: Performed By: #### L ACT #### [facility] [address] [place] [address] Dr. Tho Hardy Clarity (U) CLEAR Normal CLEAR [facility] Comment on above: Performed By: #### L ACT #### [facility] [address] [place] [address] Dr. Tho Hardy Color (U) YELLOW Normal YELLOW [facility] Comment on above: Performed By: #### L ACT #### [facility] [address] [place] [address] Dr. Tho RIVERA A micrscopic examination will be performed if indicated. Normal [facility] Comment on above: Performed By: #### L ACT #### [facility] [address] [place] [address] Dr. Tho Hardy Glucose Ql (U) Negative Normal NEGATIVE [facility] Comment on above: Performed By: #### L ACT #### [facility] [address] [place] [address] Dr. Tho Hardy Hemoglobin Ql (U) MODERATE Abnormal NEGATIVE [facility] Comment on above: Performed By: #### L ACT #### [facility] [address] [place] [address] Dr. Tho Hardy Ketones Ql (U) Negative Normal NEGATIVE [facility] Comment on above: Performed By: #### L ACT #### [facility] [address] [place] [address] Dr. Tho Hardy LEUKOCYTES Negative Normal NEGATIVE [facility] Comment on above: Performed By: #### L ACT #### [facility] [address] [place] [address] Dr. Tho Hardy Nitrite Ql (U) Negative Normal NEGATIVE [facility] Comment on above: Performed By: #### L ACT #### [facility] [address] [place] [address] Dr. Tho Hardy pH (U) 5.5 [pH] Normal 5-9 [facility] Comment on above: Performed By: #### L ACT #### [facility] [address] [place] [address] Dr. Tho Hardy SPEC GRAVITY >=1.030 Abnormal 1.005-<=1.025 [facility] Comment on above: Performed By: #### L ACT #### [facility] [address] [place] [address] Dr. Tho Hardy UA PROTEIN Negative Normal NEGATIVE/ TRACE [facility] Comment on above: Performed By: #### L ACT #### [facility] [address] [place] [address] Dr. Tho Hardy UR MICRO IND INDICATED Normal [facility] Comment on above: Performed By: #### L ACT #### [facility] [address] [place] [address] Dr. Tho Hardy Urobilinogen Qn (U) 0.2 {Roland'U}/dL Normal 0.2 - 1. 0 [facility] Comment on above: Performed By: #### L ACT #### [facility] [address] [place] [address] Dr. Tho Hardy URon 10-14-2022 , QUAL Negative Normal NEGATIVE [facility] Comment on above: Performed By: #### L ACT #### [facility] [address] [place] [address] Dr. Tho Hardy PROF CHEM 8 (BAS METB)on Anion gap [Moles/Vol] 12.8 mmol/L Normal [facility] Comment on above: Performed By: #### B MP #### [facility] [address] [address] [address] Tho Hardy Calcium [Mass/Vol] 8.7 mg/dL Normal 8.5-10.1 [facility] Comment on above: Performed By: #### B MP #### [facility] [address] [address] [address] Tho Hardy Chloride [Moles/Vol] 104 mmol/L Normal 98-107 [facility] Comment on above: Performed By: #### B MP #### [facility] [address] [address] [address] Tho Hardy CO2 [Moles/Vol] 28.4 mmol/L Normal 21.0-32.0 [facility] Comment on above: Performed By: #### B MP #### [facility] [address] [place] [address] Dr. Tho Hardy Creatinine [Mass/Vol] 0.65 mg/dL Normal 0.55-1.02 [facility] Comment on above: Performed By: #### B MP #### [facility] [address] [address] [address] Tho Hardy EGFR-AF SWAZI >60 Normal >=60 [facility] Comment on above: Performed By: #### B MP #### [facility] [address] [place] [address] Dr. Tho Hardy EGFR-NON AF SWAZI >60 Normal >=60 [facility] Comment on above: Performed By: #### B MP #### [facility] [address] [address] [address] Tho Hardy Glucose [Mass/Vol] 86 mg/dL Normal 74-106 [facility] Comment on above: Performed By: #### B MP #### [facility] [address] [address] [address] Tho Hardy Potassium [Moles/Vol] 3.2 mmol/L Critically low 3.5-5.1 [facility] Comment on above: Performed By: #### B MP #### [facility] [address] [address] [address] Tho Hardy Sodium [Moles/Vol] 142 mmol/L Normal 136-145 [facility] Comment on above: Performed By: #### B MP #### [facility] [address] [address] [address] Tho Hardy Urea nitrogen [Mass/Vol] 11.0 mg/dL Normal 7.0-18.0 [facility] Comment on above: Performed By: #### B MP #### [facility] [address] [address] [address] Tho Hardy Urea nitrogen/Creatinine [Mass ratio] 16.9 mg/mg Normal [facility] Comment on above: Performed By: #### B MP #### [facility] [address] [place] [address] Dr. Tho Hardy URINE MICROSCOPIC ONLYon BACTERIA TRACE Abnormal NONE SEEN [facility] Comment on above: Performed By: #### L ACT #### [facility] [address] [place] [address] Dr. Tho Hardy Bacteria identified Cx Nom (U) NOT INDICATED Normal [facility] Comment on above: Performed By: #### L ACT #### [facility] [address] [place] [address] Dr. Tho Hardy CAST NONE SEEN Normal NONE SEEN [facility] Comment on above: Performed By: #### L ACT #### [facility] [address] [place] [address] Dr. Tho Hardy Crystals LM Nom (Urine sed) NONE SEEN Normal NONE SEEN [facility] Comment on above: Performed By: #### L ACT #### [facility] [address] [place] [address] Dr. Tho Hardy Epithelial cells LM Ql (Urine sed) FEW Abnormal NONE SEEN /RARE [facility] Comment on above: Performed By: #### L ACT #### [facility] [address] [place] [address] Dr. Tho Hardy MUCOUS NONE SEEN Normal NONE SEEN [facility] Comment on above: Performed By: #### L ACT #### [facility] [address] [place] [address] Dr. Tho Hardy RBC 0-2 Normal 0-2 [facility] Comment on above: Performed By: #### L ACT #### [facility] [address] [place] [address] Dr. Tho Hardy WBC NONE SEEN Normal NONE SEEN [facility] Comment on above: Performed By: #### L ACT #### [facility] [address] [place] [address] Dr. Tho Hardy CBC AUTO DIFFon 09-26-2022 BASO # 0.0 103/ul Normal 0.0-0.1 [facility] Comment on above: Performed By: #### L ACT #### [facility] [address] [place] [address] Dr. Tho Hardy Basophils/100 WBC (Bld) 0.1 % Critically low 0.2-2.0 [facility] Comment on above: Performed By: #### L ACT #### [facility] [address] [place] [address] Dr. Tho Hardy EO # 0.2 103/ul Normal 0.0-0.7 [facility] Comment on above: Performed By: #### L ACT #### [facility] [address] [place] [address] Dr. Tho Hardy Eosinophils/100 WBC (Bld) 2.3 % Normal 0.9-7.0 [facility] Comment on above: Performed By: #### L ACT #### [facility] [address] [place] [address] Dr. Tho Hardy Erythrocyte distribution width (RBC) [Ratio] 12.7 % Normal 11.0-15.0 [facility] Comment on above: Performed By: #### L ACT #### [facility] [address] [place] [address] Dr. Tho Hardy Hematocrit (Bld) [Volume fraction] 43.4 % Normal 36.0-48.0 [facility] Comment on above: Performed By: #### L ACT #### [facility] [address] [place] [address] Dr. Tho Hardy Hemoglobin (Bld) [Mass/Vol] 14.6 g/dL Normal 12.0-16.0 [facility] Comment on above: Performed By: #### L ACT #### [facility] [address] [place] [address] Dr. Tho Hardy IG # 0.02 10e3/ul Normal 0.00-0.03 [facility] Comment on above: Performed By: #### L ACT #### [facility] [address] [place] [address] Dr. Tho Hardy IG % 0.2 % Normal 0.0-0.5 [facility] Comment on above: Performed By: #### L ACT #### [facility] [address] [place] [address] Dr. Tho Hardy LYMPH # 1.8 103/ul Normal 1.2-3.8 [facility] Comment on above: Performed By: #### L ACT #### [facility] [address] [place] [address] Dr. Tho Hardy Lymphocytes/100 WBC (Bld) 20.5 % Normal 20.5-60.0 [facility] Comment on above: Performed By: #### L ACT #### [facility] [address] [place] [address] Dr. Tho Hardy MANUAL DIFF REQ NO Normal [facility] Comment on above: Performed By: #### L ACT #### [facility] [address] [place] [address] Dr. Tho Hardy MCH (RBC) [Entitic mass] 30.4 pg Normal 26.7-34.0 [facility] Comment on above: Performed By: #### L ACT #### [facility] [address] [place] [address] Dr. Tho Hardy MCHC (RBC) [Mass/Vol] 33.6 g/dL Normal 29.9-35.2 [facility] Comment on above: Performed By: #### L ACT #### [facility] [address] [place] [address] Dr. Tho Hardy MCV (RBC) [Entitic vol] 90.4 fL Normal 81.0-99.0 [facility] Comment on above: Performed By: #### L ACT #### [facility] [address] [address] [address] Tho Hardy MONO # 0.5 103/ul Normal 0.3-0.8 [facility] Comment on above: Performed By: #### L ACT #### [facility] [address] [address] [address] Tho Hardy Monocytes/100 WBC (Bld) 5.5 % Normal 1.7-12.0 [facility] Comment on above: Performed By: #### L ACT #### [facility] [address] [place] [address] Dr. Tho Hardy NEUT # 6.2 103/ul Normal 1.4-6.5 [facility] Comment on above: Performed By: #### L ACT #### [facility] [address] [place] [address] Dr. Tho Hardy Neutrophils/100 WBC (Bld) 71.4 % Normal 43.0-75.0 [facility] Comment on above: Performed By: #### L ACT #### [facility] [address] [place] [address] Dr. Tho Hardy Platelet mean volume (Bld) [Entitic vol] 9.5 fL Normal 9.5-13.5 [facility] Comment on above: Performed By: #### L ACT #### [facility] [address] [place] [address] Dr. Tho Hardy PLT 234 103/ul Normal 150-450 [facility] Comment on above: Performed By: #### L ACT #### [facility] [address] [place] [address] Dr. Tho Hardy RBC 4.80 106/ul Normal 4.20-5.40 [facility] Comment on above: Performed By: #### L ACT #### [facility] [address] [place] [address] Dr. Tho Hardy WBC 8.7 103/ul Normal 4.0-11.0 [facility] Comment on above: Performed By: #### L ACT #### [facility] [address] [address] [address] Tho Hardy ER URINE PROFILEon 3 Bilirubin Ql (U) Negative Normal NEGATIVE [facility] Comment on above: Performed By: #### P REGU, ERUR, UMICRO #### [facility] [address] [address] [address] Tho Hardy Clarity (U) CLEAR Normal CLEAR [facility] Comment on above: Performed By: #### P REGU, ERUR, UMICRO #### [facility] [address] [address] [address] Tho Hardy Color (U) YELLOW Normal YELLOW [facility] Comment on above: Performed By: #### P REGU, ERUR, UMICRO #### [facility] [address] [address] [address] Tho RIVERA A micrscopic examination will be performed if indicated. Normal [facility] Comment on above: Performed By: #### P REGU, ERUR, UMICRO #### [facility] [address] [address] [address] Tho Hardy Glucose Ql (U) Negative Normal NEGATIVE [facility] Comment on above: Performed By: #### P REGU, ERUR, UMICRO #### [facility] [address] [address] [address] Tho Hardy Hemoglobin Ql (U) SMALL Abnormal NEGATIVE [facility] Comment on above: Performed By: #### P REGU, ERUR, UMICRO #### [facility] [address] [address] [address] Tho Hardy Ketones Ql (U) Negative Normal NEGATIVE [facility] Comment on above: Performed By: #### P REGU, ERUR, UMICRO #### [facility] [address] [address] [address] Tho Hardy LEUKOCYTES Negative Normal NEGATIVE [facility] Comment on above: Performed By: #### P REGU, ERUR, UMICRO #### [facility] [address] [address] [address] Tho Hardy Nitrite Ql (U) Negative Normal NEGATIVE [facility] Comment on above: Performed By: #### P RICHARDSON MCNEIL UMICRO #### [facility] [address] [address] [address] Tho Hardy pH (U) 5.5 [pH] Normal 5-9 [facility] Comment on above: Performed By: #### P REGRICHARDSON Kramer, UMICRO #### [facility] [address] [place] [address] Dr. Tho Hardy SPEC GRAVITY >=1.030 Abnormal 1.005-<=1.025 [facility] Comment on above: Performed By: #### P REGKRISTIAN KramerR UMICRO #### [facility] [address] [place] [address] Dr. Tho Hardy UA PROTEIN TRACE Normal NEGATIVE/ TRACE [facility] Comment on above: Performed By: #### P RICHARDSON MCNEIL UMICRO #### [facility] [address] [place] [address] Dr. Tho Hardy UR MICRO IND INDICATED Normal [facility] Comment on above: Performed By: #### P RICHARDSON MCNEIL UMICRO #### [facility] [address] [place] [address] Dr. Tho Hardy Urobilinogen Qn (U) 0.2 {Roland'U}/dL Normal 0.2 - 1. 0 [facility] Comment on above: Performed By: #### P REGUKRISTIANR, UMICRO #### [facility] [address] [place] [address] Dr. Tho Hardy GI PANEL (PCR)on 09-26-2022 Adenovirus F 40/41 Not detected Normal NOT DETECTED [facility] Comment on above: Performed By: #### G IPANEL #### [facility] [address] [place] [address] Dr. Tho Hardy Astrovirus Not detected Normal NOT DETECTED [facility] Comment on above: Performed By: #### G IPANEL #### [facility] [address] [address] [address] Tho Hardy C. Diff toxin A/B Not detected Normal NOT DETECTED [facility] Comment on above: Performed By: #### G IPANEL #### [facility] [address] [place] [address] Dr. Tho Hardy Campylobacter Not detected Normal NOT DETECTED [facility] Comment on above: Performed By: #### G IPANEL #### [facility] [address] [place] [address] Dr. Tho Hardy Cryptosporidium Not detected Normal NOT DETECTED [facility] Comment on above: Performed By: #### G IPANEL #### [facility] [address] [place] [address] Dr. Tho Hardy Cyclos. Cayetanensis Not detected Normal NOT DETECTED [facility] Comment on above: Performed By: #### G IPANEL #### [facility] [address] [place] [address] Dr. Tho Hardy E. Coli O157 Not Applicable Normal Not Applicable [facility] Comment on above: Performed By: #### G IPANEL #### [facility] [address] [place] [address] Dr. Tho Hardy E. histolytica Not detected Normal NOT DETECTED [facility] Comment on above: Performed By: #### G IPANEL #### [facility] [address] [place] [address] Dr. Tho Hardy EAEC Not detected Normal NOT DETECTED [facility] Comment on above: Performed By: #### G IPANEL #### [facility] [address] [place] [address] Dr. Tho Hardy EIEC Not detected Normal NOT DETECTED [facility] Comment on above: Performed By: #### G IPANEL #### [facility] [address] [place] [address] Dr. Tho Hardy EPEC Not detected Normal NOT DETECTED [facility] Comment on above: Performed By: #### G IPANEL #### [facility] [address] [place] [address] Dr. Tho Hardy ETEC Not detected Normal NOT DETECTED [facility] Comment on above: Performed By: #### G IPANEL #### [facility] [address] [address] [address] Tho Scott Lamblia Not detected Normal NOT DETECTED [facility] Comment on above: Performed By: #### G IPANEL #### [facility] [address] [address] [address] Tho ALBRIGHT CONTROLS PASSED Normal [facility] Comment on above: Performed By: #### G IPANEL #### [facility] [address] [address] [address] Tho CESPEDES HEADER GI PANEL BACTERIA Normal [facility] Comment on above: Performed By: #### G IPANEL #### [facility] [address] [address] [address] Tho MCCONNELL ECOLI GI PANEL DIARRHEAGENIC E.COLI / SHIGELLA Normal [facility] Comment on above: Performed By: #### G IPANEL #### [facility] [address] [address] [address] Tho MCCONNELL INFO SEE BELOW Normal [facility] Comment on above: Result Comment: EAEC - Enteroaggregative E. Coli EPEC- Enteropathogenic E. Coli ETEC- Enterotoxigenic E. Coli lt/st STEC- Shigella-like toxin-producing E. Coli stx1/stx2 EIEC- Shigella/Enteroinvasive E. Coli Performed By: #### G IPANEL #### [facility] [address] [address] [address] Tho MCCONNELL PARASITES GI PANEL PARASITES Normal [facility] Comment on above: Performed By: #### G IPANEL #### [facility] [address] [address] [address] Tho MCCONNELL VIRUS GI PANEL VIRUSES Normal [facility] Comment on above: Performed By: #### G IPANEL #### [facility] [address] [address] [address] Tho Hardy Norovirus GI/GII Not detected Normal NOT DETECTED [facility] Comment on above: Performed By: #### G IPANEL #### [facility] [address] [address] [address] Tho Smith Shigelloides Not detected Normal NOT DETECTED [facility] Comment on above: Performed By: #### G IPANEL #### [facility] [address] [address] [address] Tho Hardy Rotavirus A Not detected Normal NOT DETECTED [facility] Comment on above: Performed By: #### G IPANEL #### [facility] [address] [address] [address] Tho Hardy Salmonella Not detected Normal NOT DETECTED [facility] Comment on above: Performed By: #### G IPANEL #### [facility] [address] [place] [address] Dr. Tho Hardy Sapovirus Not detected Normal NOT DETECTED [facility] Comment on above: Performed By: #### G IPANEL #### [facility] [address] [address] [address] Tho Hardy STEC Not detected Normal NOT DETECTED [facility] Comment on above: Performed By: #### G IPANEL #### [facility] [address] [place] [address] Dr. Tho Hardy Vibrio Not detected Normal NOT DETECTED [facility] Comment on above: Performed By: #### G IPANEL #### [facility] [address] [place] [address] Dr. Tho Hardy Vibrio Cholera Not detected Normal NOT DETECTED [facility] Comment on above: Performed By: #### G IPANEL #### [facility] [address] [place] [address] Dr. Tho Hardy Y. Enterocolitica Not detected Normal NOT DETECTED [facility] Comment on above: Performed By: #### G IPANEL #### [facility] [address] [place] [address] Dr. Tho Hardy URon 09-26-2022 , QUAL Negative Normal NEGATIVE [facility] Comment on above: Performed By: #### P REGU, ERUR, UMICRO #### [facility] [address] [address] [address] Tho Hardy PROF CHEM 8 (BAS METB)on Anion gap [Moles/Vol] 15.6 mmol/L Normal [facility] Comment on above: Performed By: #### B MP #### [facility] [address] [address] [address] Tho Hardy Calcium [Mass/Vol] 9.0 mg/dL Normal 8.5-10.1 [facility] Comment on above: Performed By: #### B MP #### [facility] [address] [address] [address] Tho Hardy Chloride [Moles/Vol] 104 mmol/L Normal 98-107 [facility] Comment on above: Performed By: #### B MP #### [facility] [address] [place] [address] Dr. Tho Hardy CO2 [Moles/Vol] 24.0 mmol/L Normal 21.0-32.0 [facility] Comment on above: Performed By: #### B MP #### [facility] [address] [address] [address] Tho Hardy Creatinine [Mass/Vol] 0.73 mg/dL Normal 0.55-1.02 [facility] Comment on above: Performed By: #### B MP #### [facility] [address] [address] [address] Tho Hardy EGFR-AF SWAZI >60 Normal >=60 [facility] Comment on above: Performed By: #### B MP #### [facility] [address] [address] [address] Tho Hardy EGFR-NON AF SWAZI >60 Normal >=60 [facility] Comment on above: Performed By: #### B MP #### [facility] [address] [place] [address] Dr. Tho Hardy Glucose [Mass/Vol] 85 mg/dL Normal 74-106 [facility] Comment on above: Performed By: #### B MP #### [facility] [address] [address] [address] Tho Hardy Potassium [Moles/Vol] 3.6 mmol/L Normal 3.5-5.1 [facility] Comment on above: Performed By: #### B MP #### [facility] [address] [place] [address] Dr. Tho Hardy Sodium [Moles/Vol] 140 mmol/L Normal 136-145 [facility] Comment on above: Performed By: #### B MP #### [facility] [address] [place] [address] Dr. Tho Hardy Urea nitrogen [Mass/Vol] 12.0 mg/dL Normal 7.0-18.0 [facility] Comment on above: Performed By: #### B MP #### [facility] [address] [place] [address] Dr. Tho Hardy Urea nitrogen/Creatinine [Mass ratio] 16.4 mg/mg Normal [facility] Comment on above: Performed By: #### B MP #### [facility] [address] [place] [address] Dr. Tho Hardy URINE MICROSCOPIC ONLYon BACTERIA TRACE Abnormal NONE SEEN [facility] Comment on above: Performed By: #### P REGU, ERUR, UMICRO #### [facility] [address] [place] [address] Dr. Tho Hardy Bacteria identified Cx Nom (U) NOT INDICATED Normal [facility] Comment on above: Performed By: #### P REGU, ERUR, UMICRO #### [facility] [address] [place] [address] Dr. Tho Hardy CAST NONE SEEN Normal NONE SEEN [facility] Comment on above: Performed By: #### P REGU, ERUR, UMICRO #### [facility] [address] [place] [address] Dr. Tho Hardy Crystals LM Nom (Urine sed) NONE SEEN Normal NONE SEEN [facility] Comment on above: Performed By: #### P REGU, ERUR, UMICRO #### [facility] [address] [place] [address] Dr. Tho Hardy Epithelial cells LM Ql (Urine sed) MANY Abnormal NONE SEEN /RARE [facility] Comment on above: Performed By: #### P REGU ERUR, UMICRO #### [facility] [address] [place] [address] Dr. Tho Hardy MUCOUS NONE SEEN Normal NONE SEEN [facility] Comment on above: Performed By: #### P REGU, ERUR, UMICRO #### [facility] [address] [place] [address] Dr. Tho Hardy RBC 2-5 Abnormal 0-2 [facility] Comment on above: Performed By: #### P REGU, ERUR, UMICRO #### [facility] [address] [place] [address] Dr. Tho Hardy WBC NONE SEEN Normal NONE SEEN [facility] Comment on above: Performed By: #### P REGU ERUR, UMICRO #### [facility] [address] [place] [address] Dr. Tho Hardy AMYLASEon 08-04-2022 Amylase [Catalytic activity/Vol] 27 U/L Normal 25-115 [facility] Comment on above: Performed By: #### P REGUKRISTIANR, UMICRO #### [facility] [address] [place] [address] Dr. Tho Hardy CARDIAC JEAN 3-6on 2 CK [Catalytic activity/Vol] 53 U/L Normal 26-192 [facility] Comment on above: Performed By: #### C MREP #### [facility] [address] [place] [address] Dr. Tho Hardy CK.MB [Mass/Vol] 0.79 ng/mL Normal <=3.60 [facility] Comment on above: Performed By: #### C MREP #### [facility] [address] [place] [address] Dr. Tho Hardy HSTROP 4.6 pg/mL Normal 4.0-51.3 [facility] Comment on above: Result Comment: CUT- OFF POINTS HAVE BEEN ESTABLISHED BASED ON THE FOURTH UNIVERSAL DEFINITIONS OF MYOCARDIAL INFARCTION. THE UPPER REFERENCE LIMIT (URL) OF TROPONIN, DEFINED THE 99TH PERCENTILE OF cTnI DISTRIBUTION IN A REFERENCE POPULATION, HAS BEEN CONFIRMED THE DECISION THRESHOLD FOR NC DIAGNOSIS. Performed By: #### C MREGail #### [facility] [address] [place] [address] Dr. Tho Hardy CARDIAC JEAN ADMITon 022 CK [Catalytic activity/Vol] 68 U/L Normal 26-192 [facility] Comment on above: Performed By: #### RICHARDSON GALE UMICRO #### [facility] [address] [place] [address] Dr. Tho Hardy CK.MB [Mass/Vol] 1.11 ng/mL Normal <=3.60 [facility] Comment on above: Performed By: #### RICHARDSON GALE UMICRO #### [facility] [address] [place] [address] Dr. Tho Hardy HSTROP 4.3 pg/mL Normal 4.0-51.3 [facility] Comment on above: Result Comment: CUT- OFF POINTS HAVE BEEN ESTABLISHED BASED ON THE FOURTH UNIVERSAL DEFINITIONS OF MYOCARDIAL INFARCTION. THE UPPER REFERENCE LIMIT (URL) OF TROPONIN, DEFINED THE 99TH PERCENTILE OF cTnI DISTRIBUTION IN A REFERENCE POPULATION, HAS BEEN CONFIRMED THE DECISION THRESHOLD FOR NC DIAGNOSIS. Performed By: #### RICHARDSON GALE UMICRO #### [facility] [address] [place] [address] Dr. Tho Hardy KINDRA 29 ng/mL Normal 9-82 [facility] Comment on above: Performed By: #### RICHARDSON GALE UMICRO #### [facility] [address] [place] [address] Dr. Tho Hardy CBC AUTO DIFFon 08-04-2022 BASO # 0.0 103/ul Normal 0.0-0.1 [facility] Comment on above: Performed By: #### RICHARDSON GALE UMICRO #### [facility] [address] [place] [address] Dr. Tho Hardy Basophils/100 WBC (Bld) 0.4 % Normal 0.2-2.0 [facility] Comment on above: Performed By: #### P REGU, ERUR, UMICRO #### [facility] [address] [address] [address] Tho Hardy EO # 0.2 103/ul Normal 0.0-0.7 [facility] Comment on above: Performed By: #### P REGU, ERUR, UMICRO #### [facility] [address] [place] [address] Dr. Tho Hardy Eosinophils/100 WBC (Bld) 1.7 % Normal 0.9-7.0 [facility] Comment on above: Performed By: #### P REGU, ERUR, UMICRO #### [facility] [address] [place] [address] Dr. Tho Hardy Erythrocyte distribution width (RBC) [Ratio] 12.9 % Normal 11.0-15.0 [facility] Comment on above: Performed By: #### P REGU ERUR, UMICRO #### [facility] [address] [place] [address] Dr. Tho Hardy Hematocrit (Bld) [Volume fraction] 43.2 % Normal 36.0-48.0 [facility] Comment on above: Performed By: #### P REGU, ERUR, UMICRO #### [facility] [address] [place] [address] Dr. Tho Hardy Hemoglobin (Bld) [Mass/Vol] 14.4 g/dL Normal 12.0-16.0 [facility] Comment on above: Performed By: #### P REGU, ERUR, UMICRO #### [facility] [address] [place] [address] Dr. Tho Hardy IG # 0.05 10e3/ul Critically high 0.00-0.03 [facility] Comment on above: Performed By: #### P REGU, ERUR, UMICRO #### [facility] [address] [place] [address] Dr. Tho Hardy IG % 0.4 % Normal 0.0-0.5 [facility] Comment on above: Performed By: #### P REGU, ERUR, UMICRO #### [facility] [address] [place] [address] Dr. Tho Hardy LYMPH # 2.4 103/ul Normal 1.2-3.8 [facility] Comment on above: Performed By: #### P REGU, ERUR, UMICRO #### [facility] [address] [place] [address] Dr. Tho Hardy Lymphocytes/100 WBC (Bld) 21.3 % Normal 20.5-60.0 [facility] Comment on above: Performed By: #### P REGU, ERUR, UMICRO #### [facility] [address] [place] [address] Dr. Tho Hardy MANUAL DIFF REQ NO Normal [facility] Comment on above: Performed By: #### P REGU, ERUR, UMICRO #### [facility] [address] [place] [address] Dr. Tho Hardy MCH (RBC) [Entitic mass] 29.9 pg Normal 26.7-34.0 [facility] Comment on above: Performed By: #### P REGU, ERUR, UMICRO #### [facility] [address] [place] [address] Dr. Tho Hardy MCHC (RBC) [Mass/Vol] 33.3 g/dL Normal 29.9-35.2 [facility] Comment on above: Performed By: #### P REGU, ERUR, UMICRO #### [facility] [address] [place] [address] Dr. Tho Hardy MCV (RBC) [Entitic vol] 89.6 fL Normal 81.0-99.0 [facility] Comment on above: Performed By: #### P REGU, ERUR, UMICRO #### [facility] [address] [place] [address] Dr. Tho Hardy MONO # 0.6 103/ul Normal 0.3-0.8 [facility] Comment on above: Performed By: #### P REGU, ERUR, UMICRO #### [facility] [address] [place] [address] Dr. Tho Hardy Monocytes/100 WBC (Bld) 5.5 % Normal 1.7-12.0 [facility] Comment on above: Performed By: #### P REGU, ERUR, UMICRO #### [facility] [address] [place] [address] Dr. Tho Hardy NEUT # 8.0 103/ul Critically high 1.4-6.5 [facility] Comment on above: Performed By: #### P REGU, ERUR, UMICRO #### [facility] [address] [place] [address] Dr. Tho Hardy Neutrophils/100 WBC (Bld) 70.7 % Normal 43.0-75.0 [facility] Comment on above: Performed By: #### P REGU, ERUR, UMICRO #### [facility] [address] [place] [address] Dr. Tho Hardy Platelet mean volume (Bld) [Entitic vol] 10.7 fL Normal 9.5-13.5 [facility] Comment on above: Performed By: #### P REGU, ERUR, UMICRO #### [facility] [address] [place] [address] Dr. Tho Hardy PLT 220 103/ul Normal 150-450 [facility] Comment on above: Performed By: #### P REGU, ERUR, UMICRO #### [facility] [address] [place] [address] Dr. Tho Hardy RBC 4.82 106/ul Normal 4.20-5.40 [facility] Comment on above: Performed By: #### P REGU, ERUR, UMICRO #### [facility] [address] [place] [address] Dr. Tho Hardy WBC 11.3 103/ul Critically high 4.0-11.0 [facility] Comment on above: Performed By: #### P REGU, ERUR, UMICRO #### [facility] [address] [place] [address] ABD/PELV W CONon [...] ISH HECTOR Date: 2022-08-04 05:28 Normal [facility] LACTATE/LACTIC ACIDon 2021 Lactate [Moles/Vol] 1.0 mmol/L Normal 0.4-1.9 [facility] Comment on above: Performed By: #### L ACT #### [facility] [address] [address] [address] Tho Hardy Lactate [Moles/Vol] 1.2 mmol/L Normal 0.4-1.9 [facility] Comment on above: Performed By: #### L ACT #### [facility] [address] [address] [address] Tho Hardy LIPASEon 08-04-2022 Lipase [Catalytic activity/Vol] 72.0 U/L Critically low 73.0-393.0 [facility] Comment on above: Performed By: #### P REGU, ERUR, UMANISARO #### [facility] [address] [address] [address] Tho Hardy PROF 14(COMP METB)on 022 Albumin [Mass/Vol] 3.7 g/dL Normal 3.4-5.0 [facility] Comment on above: Performed By: #### P REGU, ERUR, UMICRO #### [facility] [address] [address] [address] Tho Hardy Albumin/Globulin [Mass ratio] 0.9 {ratio} Normal [facility] Comment on above: Performed By: #### P REGU, ERUR, UMICRO #### [facility] [address] [address] [address] Tho Hardy ALP [Catalytic activity/Vol] 83 U/L Normal 46-116 [facility] Comment on above: Performed By: #### P REGU, ERUR, UMICRO #### [facility] [address] [place] [address] Dr. Tho Hardy ALT [Catalytic activity/Vol] 36 U/L Normal 14-59 [facility] Comment on above: Performed By: #### P REGU, ERUR, UMICRO #### [facility] [address] [address] [address] Tho Hardy Anion gap [Moles/Vol] 9.7 mmol/L Normal [facility] Comment on above: Performed By: #### P REGU, ERUR, UMICRO #### [facility] [address] [address] [address] Tho Hardy AST [Catalytic activity/Vol] 19 U/L Normal 15-37 [facility] Comment on above: Performed By: #### P REGU, ERUR, UMICRO #### [facility] [address] [address] [address] Tho Hardy Bilirubin [Mass/Vol] 0.3 mg/dL Normal 0.2-1.0 [facility] Comment on above: Performed By: #### P REGU, ERUR, UMICRO #### [facility] [address] [address] [address] Tho Hardy Calcium [Mass/Vol] 8.9 mg/dL Normal 8.5-10.1 [facility] Comment on above: Performed By: #### P REGUKRISTIANR UMICRO #### [facility] [address] [address] [address] Tho Hardy Chloride [Moles/Vol] 103 mmol/L Normal 98-107 [facility] Comment on above: Performed By: #### P REGU ERUR UMICRO #### [facility] [address] [address] [address] Tho Hardy CO2 [Moles/Vol] 27.8 mmol/L Normal 21.0-32.0 [facility] Comment on above: Performed By: #### P REGU ERUR UMICRO #### [facility] [address] [place] [address] Dr. Tho Hardy Creatinine [Mass/Vol] 0.62 mg/dL Normal 0.55-1.02 [facility] Comment on above: Performed By: #### P REGU ERUR, UMICRO #### [facility] [address] [place] [address] Dr. Tho Hardy EGFR-AF SWAZI >60 Normal >=60 [facility] Comment on above: Performed By: #### P REGU ERUR, UMICRO #### [facility] [address] [place] [address] Dr. Tho Hardy EGFR-NON AF SWAZI >60 Normal >=60 [facility] Comment on above: Performed By: #### P REGU ERUR, UMICRO #### [facility] [address] [place] [address] Dr. Tho Hardy Globulin (S) [Mass/Vol] 3.9 g/dL Normal [facility] Comment on above: Performed By: #### P REGU ERUR, UMICRO #### [facility] [address] [place] [address] Dr. Tho Hardy Glucose [Mass/Vol] 98 mg/dL Normal 74-106 [facility] Comment on above: Performed By: #### P REGU, ERUR, UMICRO #### [facility] [address] [address] [address] Tho Hardy Potassium [Moles/Vol] 3.5 mmol/L Normal 3.5-5.1 [facility] Comment on above: Performed By: #### P REGUKRISTIANR UMICRO #### [facility] [address] [place] [address] Dr. Tho Hardy Protein [Mass/Vol] 7.6 g/dL Normal 6.4-8.2 [facility] Comment on above: Performed By: #### P REGUKRISTIANR UMICRO #### [facility] [address] [place] [address] Dr. Tho Hardy Sodium [Moles/Vol] 137 mmol/L Normal 136-145 [facility] Comment on above: Performed By: #### P REGKRISTIAN KramerR UMICRO #### [facility] [address] [place] [address] Dr. Tho Hardy Urea nitrogen [Mass/Vol] 18.0 mg/dL Normal 7.0-18.0 [facility] Comment on above: Performed By: #### RICHARDSON GALE UMICRO #### [facility] [address] [place] [address] Dr. Tho Hardy Urea nitrogen/Creatinine [Mass ratio] 29.0 mg/mg Normal [facility] Comment on above: Performed By: #### P REGKRISTIAN KramerR UMICRO #### [facility] [address] [place] [address] Dr. Tho Hardy XR CHEST 1 Von [...] acute cardiopulmonary abnormality. Electronically authenticated by: JOLENE TIMMONS Date: 2022-08-04 02:02 Normal [facility] D-DIMERon 07-09-2022 D-DIMER 0.23 mg/L FEU Normal <=0.[address] [facility] Comment on above: Performed By: #### RICHARDSON GALE UMICRO #### [facility] [address] [place], [place] [address] Dr. Tho Hardy D-DIMER COMMENTS SEE BELOW Normal [facility] Comment on above: Result Comment: Incr [...] Performed By: #### RICHARDSON GALE UMICRO #### [facility] [address] [place], [place] [address] Dr. Tho Hardy XR HIP LT 2 [...] by: JOSIE KING Date: 2022-07-08 23:54 Normal [facility] US PELVIS TRANSVAGon 022 US [...] by: AYAD BIGGS Date: 2022-05-01 10:[address] 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 self [...] US mail Pt w remote hx of [facility]. Was seen in ED at [facility] for abd pain in epigastric area. She had no obstructive symptoms and pain was focal in the area. She had CT scan revealing incisional hernia above the umbilicus, presumably at [facility]. 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 NO Have you had unintentional weight loss of 15 lbs/7 Kg in the last 3-6 months? NO Bowels: regular Wound: none Temperature: No Drains: No Encounter Status:Closed by CARLOS TARIQ on 04/26/22 Normal [facility] CT ABD/PELV W CONon 04-12-20 CT [...] YENI PARNELL Date: 2022-04-12 00:02 Normal [facility] CBC AUTO DIFFon 04-11-2022 BASO # 0.0 103/ul Normal 0.0-0.1 [facility] Comment on above: Performed By: #### P REGU, ERUR, UMICRO #### [facility] [address] [address] [address] Tho Hardy Basophils/100 WBC (Bld) 0.2 % Normal 0.2-2.0 [facility] Comment on above: Performed By: #### P REGU, ERUR, UMICRO #### [facility] [address] [address] [address] Tho Hardy EO # 0.1 103/ul Normal 0.0-0.7 [facility] Comment on above: Performed By: #### P REGU, ERUR, UMICRO #### [facility] [address] [address] [address] Tho Hardy Eosinophils/100 WBC (Bld) 0.7 % Critically low 0.9-7.0 [facility] Comment on above: Performed By: #### P REGU, ERUR, UMICRO #### [facility] [address] [address] [address] Tho Hardy Erythrocyte distribution width (RBC) [Ratio] 13.4 % Normal 11.0-15.0 [facility] Comment on above: Performed By: #### P REGU, ERUR, UMICRO #### [facility] [address] [address] [address] Tho Hardy Hematocrit (Bld) [Volume fraction] 39.9 % Normal 36.0-48.0 [facility] Comment on above: Performed By: #### P REGU, ERUR, UMICRO #### [facility] [address] [address] [address] Tho Hardy Hemoglobin (Bld) [Mass/Vol] 13.3 g/dL Normal 12.0-16.0 [facility] Comment on above: Performed By: #### P REGU, ERUR, UMICRO #### [facility] [address] [place] [address] Dr. Tho Hardy IG # 0.04 10e3/ul Critically high 0.00-0.03 [facility] Comment on above: Performed By: #### P REGU, ERUR, UMICRO #### [facility] [address] [place] [address] Dr. Tho Hardy IG % 0.4 % Normal 0.0-0.5 [facility] Comment on above: Performed By: #### P REGU, ERUR, UMICRO #### [facility] [address] [place] [address] Dr. Tho Hardy LYMPH # 2.8 103/ul Normal 1.2-3.8 [facility] Comment on above: Performed By: #### P REGU, ERUR, UMICRO #### [facility] [address] [address] [address] Tho Hardy Lymphocytes/100 WBC (Bld) 31.1 % Normal 20.5-60.0 [facility] Comment on above: Performed By: #### P REGU, ERUR, UMICRO #### [facility] [address] [place] [address] Dr. Tho Hardy MANUAL DIFF REQ NO Normal [facility] Comment on above: Performed By: #### P REGU, ERUR, UMICRO #### [facility] [address] [place] [address] Dr. Tho Hardy MCH (RBC) [Entitic mass] 29.8 pg Normal 26.7-34.0 [facility] Comment on above: Performed By: #### P REGU, ERUR, UMICRO #### [facility] [address] [place] [address] Dr. Tho Hardy MCHC (RBC) [Mass/Vol] 33.3 g/dL Normal 29.9-35.2 [facility] Comment on above: Performed By: #### P REGU, ERUR, UMICRO #### [facility] [address] [place] [address] Dr. Tho Hardy MCV (RBC) [Entitic vol] 89.5 fL Normal 81.0-99.0 [facility] Comment on above: Performed By: #### P REGU ERUR, UMICRO #### [facility] [address] [place] [address] Dr. Tho Hardy MONO # 0.7 103/ul Normal 0.3-0.8 [facility] Comment on above: Performed By: #### P REGU, ERUR, UMICRO #### [facility] [address] [place] [address] Dr. Tho Hardy Monocytes/100 WBC (Bld) 7.3 % Normal 1.7-12.0 [facility] Comment on above: Performed By: #### P REGU, ERUR, UMICRO #### [facility] [address] [place] [address] Dr. Tho Hardy NEUT # 5.4 103/ul Normal 1.4-6.5 [facility] Comment on above: Performed By: #### P REGU, ERUR, UMICRO #### [facility] [address] [place] [address] Dr. Tho Hardy Neutrophils/100 WBC (Bld) 60.3 % Normal 43.0-75.0 [facility] Comment on above: Performed By: #### P REGU, ERUR, UMICRO #### [facility] [address] [place] [address] Dr. Tho Hardy Platelet mean volume (Bld) [Entitic vol] 9.1 fL Critically low 9.5-13.5 [facility] Comment on above: Performed By: #### P REGU, ERUR, UMICRO #### [facility] [address] [address] [address] Tho Hardy PLT 249 103/ul Normal 150-450 [facility] Comment on above: Performed By: #### P REGU, ERUR, UMICRO #### [facility] [address] [place] [address] Dr. Tho Hardy RBC 4.46 106/ul Normal 4.20-5.40 [facility] Comment on above: Performed By: #### P REGU, ERUR, UMICRO #### [facility] [address] [place] [address] Dr. Tho Hardy WBC 9.0 103/ul Normal 4.0-11.0 [facility] Comment on above: Performed By: #### P REGU, ERUR, UMICRO #### [facility] [address] [place] [address] Dr. Tho Hardy ER URINE PROFILEon 2 Bilirubin Ql (U) Negative Normal NEGATIVE [facility] Comment on above: Performed By: #### B MP #### [facility] [address] [place] [address] Dr. Tho Hardy Clarity (U) CLEAR Normal CLEAR [facility] Comment on above: Performed By: #### B MP #### [facility] [address] [place] [address] Dr. Tho Hardy Color (U) YELLOW Normal YELLOW [facility] Comment on above: Performed By: #### B MP #### [facility] [address] [place] [address] Dr. Tho TOWNSENDMatty A micrscopic examination will be performed if indicated. Normal [facility] Comment on above: Performed By: #### B MP #### [facility] [address] [place] [address] Dr. Tho Hardy Glucose Ql (U) Negative Normal NEGATIVE [facility] Comment on above: Performed By: #### B MP #### [facility] [address] [place] [address] Dr. Tho Hardy Hemoglobin Ql (U) MODERATE Abnormal NEGATIVE [facility] Comment on above: Performed By: #### B MP #### [facility] [address] [place] [address] Dr. Tho Hardy Ketones Ql (U) Negative Normal NEGATIVE [facility] Comment on above: Performed By: #### B MP #### [facility] [address] [place] [address] Dr. Tho Hardy LEUKOCYTES Negative Normal NEGATIVE [facility] Comment on above: Performed By: #### B MP #### [facility] [address] [place] [address] Dr. Tho Hardy Nitrite Ql (U) Negative Normal NEGATIVE [facility] Comment on above: Performed By: #### B MP #### [facility] [address] [place] [address] Dr. Tho Hardy pH (U) 5.5 [pH] Normal 5-9 [facility] Comment on above: Performed By: #### B MP #### [facility] [address] [place] [address] Dr. Tho Hardy SPEC GRAVITY >=1.030 Abnormal 1.005-<=1.025 [facility] Comment on above: Performed By: #### B MP #### [facility] [address] [place] [address] Dr. Tho Hardy UA PROTEIN Negative Normal NEGATIVE/ TRACE [facility] Comment on above: Performed By: #### B MP #### [facility] [address] [place] [address] Dr. Tho Hardy UR MICRO IND INDICATED Normal [facility] Comment on above: Performed By: #### B MP #### [facility] [address] [place] [address] Dr. Tho Hardy Urobilinogen Qn (U) 0.2 {Roland'U}/dL Normal 0.2 - 1. 0 [facility] Comment on above: Performed By: #### B MP #### [facility] [address] [place] [address] Dr. Tho Hardy LIPASEon 04-11-2022 Lipase [Catalytic activity/Vol] 88.0 U/L Normal 73.0-393.0 [facility] Comment on above: Performed By: #### L ACT #### [facility] [address] [place] [address] Dr. Tho Hardy PREG HCG QUALon 04-11-2022 , QUAL Negative Normal NEGATIVE [facility] Comment on above: Performed By: #### P REG #### [facility] [address] [place] [address] Dr. Tho Hardy PROF 14(COMP METB)on 022 Albumin [Mass/Vol] 3.5 g/dL Normal 3.4-5.0 [facility] Comment on above: Performed By: #### L ACT #### [facility] [address] [place] [address] Dr. Tho Hardy Albumin/Globulin [Mass ratio] 0.9 {ratio} Normal [facility] Comment on above: Performed By: #### L ACT #### [facility] [address] [place] [address] Dr. Tho Hardy ALP [Catalytic activity/Vol] 73 U/L Normal 46-116 [facility] Comment on above: Performed By: #### L ACT #### [facility] [address] [place] [address] Dr. Tho Hardy ALT [Catalytic activity/Vol] 29 U/L Normal 14-59 [facility] Comment on above: Performed By: #### L ACT #### [facility] [address] [place] [address] Dr. Tho Hardy Anion gap [Moles/Vol] 10.4 mmol/L Normal [facility] Comment on above: Performed By: #### L ACT #### [facility] [address] [place] [address] Dr. Tho Hardy AST [Catalytic activity/Vol] 15 U/L Normal 15-37 [facility] Comment on above: Performed By: #### L ACT #### [facility] [address] [place] [address] Dr. Tho Hardy Bilirubin [Mass/Vol] 0.4 mg/dL Normal 0.2-1.0 [facility] Comment on above: Performed By: #### L ACT #### [facility] [address] [place] [address] Dr. Tho Hardy Calcium [Mass/Vol] 8.4 mg/dL Critically low 8.5-10.1 [facility] Comment on above: Performed By: #### L ACT #### [facility] [address] [address] [address] Tho Hardy Chloride [Moles/Vol] 103 mmol/L Normal 98-107 [facility] Comment on above: Performed By: #### L ACT #### [facility] [address] [place] [address] Dr. Tho Hardy CO2 [Moles/Vol] 27.8 mmol/L Normal 21.0-32.0 [facility] Comment on above: Performed By: #### L ACT #### [facility] [address] [place] [address] Dr. Tho Hardy Creatinine [Mass/Vol] 0.75 mg/dL Normal 0.55-1.02 [facility] Comment on above: Performed By: #### L ACT #### [facility] [address] [place] [address] Dr. Tho Hardy EGFR-AF SWAZI >60 Normal >=60 [facility] Comment on above: Performed By: #### L ACT #### [facility] [address] [place] [address] Dr. Tho Hardy EGFR-NON AF SWAZI >60 Normal >=60 [facility] Comment on above: Performed By: #### L ACT #### [facility] [address] [address] [address] Tho Hardy Globulin (S) [Mass/Vol] 3.7 g/dL Normal [facility] Comment on above: Performed By: #### L ACT #### [facility] [address] [place] [address] Dr. Tho Hardy Glucose [Mass/Vol] 88 mg/dL Normal 74-106 [facility] Comment on above: Performed By: #### L ACT #### [facility] [address] [address] [address] Tho Hardy Potassium [Moles/Vol] 3.2 mmol/L Critically low 3.5-5.1 [facility] Comment on above: Performed By: #### L ACT #### [facility] [address] [address] [address] Tho Hardy Protein [Mass/Vol] 7.2 g/dL Normal 6.4-8.2 [facility] Comment on above: Performed By: #### L ACT #### [facility] [address] [address] [address] Tho Hardy Sodium [Moles/Vol] 138 mmol/L Normal 136-145 [facility] Comment on above: Performed By: #### L ACT #### [facility] [address] [address] [address] Tho Hardy Urea nitrogen [Mass/Vol] 13.0 mg/dL Normal 7.0-18.0 [facility] Comment on above: Performed By: #### L ACT #### [facility] [address] [address] [address] Tho Hardy Urea nitrogen/Creatinine [Mass ratio] 17.3 mg/mg Normal [facility] Comment on above: Performed By: #### L ACT #### [facility] [address] [address] [address] Tho Hardy PROTIMEon 04-11-2022 INR Coag (PPP) [Relative time] 0.97 {INR} Normal [facility] Comment on above: Performed By: #### P REGU, ERUR, UMICRO #### [facility] [address] [address] [address] Tho Hardy INR GUIDELINES SEE BELOW Normal [facility] Comment on above: Result Comment: JOSEFINA RED INR: 2.0 - 3.0 CONDITIONS NOT LISTED BELOW 2.5 - 3.5 FOR PROSTHETIC HEART VALVE REPLACEMENT 2.5 - 3.5 RECURRENT THROMBOSIS Performed By: #### P REGU, ERUR, UMICRO #### [facility] [address] [place] [address] Dr. Tho Hardy PT Coag (PPP) [Time] 10.5 s Normal 9.0-11.6 [facility] Comment on above: Performed By: #### P REGUKRISTIANR, UMICRO #### [facility] [address] [place] [address] Dr. Tho Hardy PTTon 04-11-2022 aPTT Coag (Bld) [Time] 27.8 s Normal 22.3-36.2 [facility] Comment on above: Performed By: #### P KRISTIAN MCNEILR, UMICRO #### [facility] [address] [place] [address] Dr. Tho Hardy URINE MICROSCOPIC ONLYon BACTERIA NONE SEEN Normal NONE SEEN [facility] Comment on above: Performed By: #### B MP #### [facility] [address] [place] [address] Dr. Tho Hardy Bacteria identified Cx Nom (U) NOT INDICATED Normal [facility] Comment on above: Performed By: #### B MP #### [facility] [address] [place] [address] Dr. Tho Hardy CAST NONE SEEN Normal NONE SEEN [facility] Comment on above: Performed By: #### B MP #### [facility] [address] [place] [address] Dr. Tho Hardy Crystals LM Nom (Urine sed) NONE SEEN Normal NONE SEEN [facility] Comment on above: Performed By: #### B MP #### [facility] [address] [place] [address] Dr. Tho Hardy Epithelial cells LM Ql (Urine sed) NONE SEEN Normal NONE SEEN /RARE [facility] Comment on above: Performed By: #### B MP #### [facility] [address] [place] [address] Dr. Tho Hardy MUCOUS NONE SEEN Normal NONE SEEN [facility] Comment on above: Performed By: #### B MP #### [facility] [address] [place] [address] Dr. Tho Hardy RBC 2-5 Abnormal 0-2 [facility] Comment on above: Performed By: #### B MP #### [facility] [address] [address] [address] Tho Hardy WBC NONE SEEN Normal NONE SEEN [facility] Comment on above: Performed By: #### B MP #### [facility] [id number] Tho Hardy XR ANKLE LT MIN 3 Von 2021 XR ANKLE LT MIN 3 V EXAM: XR ANKLE LT NC N 3 V HISTORY: Left ankle pain COMPARISON: None. TECHNIQUE: 3 views FINDINGS: No osseous lesion, fracture, dislocation or subluxation. Joint spaces are normal. No visualized effusion. No visualized soft tissue edema. IMPRESSION: Normal x-rays Electronically authenticated by: AYAD CORTEZ Date: 2022-02-06 19:06 Normal [facility] Vital Signs Date Time Vital Sign Value Performing Clinician Faci lity 12-21-2024 15:05-0400 Body mass index (BMI) [Ratio] 56.14 kg/m2 Noah Isabelle DO Work Phone: [facility] 12-21-2024 15:05-0400 Body weight 134.77 kg Noah Isabelle DO Work Phone: [facility] 12-21-2024 15:05-0400 Diastolic blood pressure 70 mm[Hg] Noah Isabelle DO Work Phone: [facility] 12-21-2024 15:05-0400 Systolic blood pressure 118 mm[Hg] Noah Isabelle DO Work Phone: [facility] 09-13-2024 15:10-0500 Body mass index (BMI) [Ratio] 53.31 kg/m2 Noah Isabelle DO Work Phone: [facility] 09-13-2024 15:10-0500 Body weight 127.97 kg Noah Isabelle DO Work Phone: [facility] 09-13-2024 15:10-0500 Diastolic blood pressure 82 mm[Hg] Noah Isabelle DO Work Phone: [facility] 09-13-2024 15:10-0500 Systolic blood pressure 130 mm[Hg] Noah Isabelle DO Work Phone: [facility] 05-16-2022 14:03-0400 Body weight 133.81 kg Rosa Maria Israel MD Work Phone: [facility] 05-16-2022 12:56-0400 Body height 152.[address] Work Phone: [facility] 05-16-2022 12:56-0400 Body weight 133.[address] Work Phone: [facility] Encounters Encounter Date Encounter Type Care Provider Facility Start: 05-11-2025 End: 05-11-2025 ambulatory [facility] Start: 05-06-2025 End: 05-06-2025 Emergency department patient visit [facility] Start: 04-29-2025 End: 04-29-2025 ambulatory [facility] Start: 04-11-2025 ambulatory [facility] Start: 03-30-2025 End: 03-30-2025 ambulatory [facility] Start: 03-30-2025 End: 03-30-2025 ambulatory [facility] Start: 03-25-2025 End: 03-25-2025 ambulatory [facility] Start: 12-21-2024 End: 12-21-2024 Patient encounter procedure Noah Isabelle DO Work Phone: [facility] Work Phone: Start: 12-21-2024 End: 12-21-2024 Periodic preventive med est patient 18-39 yrs Noah Isabelle DO Work Phone: [facility] Comment on above: Well woman exam with routine gynecological exam; Sweating abnormality; Status post hysterectomy; Vaginal dryness; BV (bacterial vaginosis); Yeast infection of the vagina Start: 12-21-2024 End: 12-21-2024 ambulatory NOAH ISABELLE Not Available Start: 12-21-2024 End: 12-21-2024 Bamboo flowsheet Noah Isabelle DO Work Phone: [facility] Start: 12-21-2024 End: 12-26-2024 Bamboo flowsheet Onah Isabelle DO Work Phone: [facility] Start: 12-21-2024 End: 12-26-2024 Clinisync Result Encounter Noah Isabelle DO Work Phone: [facility] External Department Unsolicited Start: 09-13-2024 End: 09-13-2024 Office outpatient visit 15 minutes Noah Isabelle DO Work Phone: [facility] Comment on above: Sweating abnormality ; Status post hysterectomy; Vaginal dryness Start: 09-13-2024 End: 09-13-2024 ambulatory NOAH ISABELLE Not Available Start: 09-13-2024 End: 09-13-2024 Bamboo flowsheet Noah Isabelle DO Work Phone: [facility] Start: 09-13-2024 End: 09-13-2024 Bamboo flowsheet Noah Isabelle DO Work Phone: [facility] Start: 01-06-2024 End: 01-07-2024 ambulatory [facility] Start: 11-11-2023 End: 11-12-2023 ambulatory KERA COONEY Facility:[facility] Start: 08-19-2023 End: 08-20-2023 ambulatory Carmen Coello Facility:[facility] Start: 12-30-2022 End: 12-30-2022 ambulatory MITESH WHITMAN . Facility:[facility] Start: 12-17-2022 End: 12-17-[address] NOAH WALTON . Facility:[facility] Start: 11-13-2022 End: 11-14-[address] . Facility:[facility] Start: 10-30-[address] . Facili ty:[facility] Start: 2022 End: 10-16-2022 ambulatory CMKENZIE EDGAR Facility:[facility] Start: 10-14-2022 End: 10-14-2022 ambulatory NATALIE David CHARU Facility:[facility] Start: 09-26-2022 End: 09-26-2022 ambulatory NATALIECARMEN BOX Facility:[facility] Start: 08-04-2022 End: 08-04-2022 ambulatory [...] MD Work Phone: GABRIELA MCCOY [facility] Start: 05-01-2022 End: 05-02-[address] NOAH WALTON . Facility:[facility] Start: 04-11-2022 End: 04-12-[address] . Facility:[facility] Start: 03-21-2022 End: 03-22-2022 ambulatory MCKENZIE EDGAR Facility:[facility] Start: 03-18-2022 End: 03-18-[address] . Facility:[facility] Start: 03-14-2022 End: 04-04-2022 ambulatory JERED TOVAR Facility:[facility] Start: 02-14-2022 End: 02-15-2022 ambulatory MCKENZIE EDGAR Facility:[facility] Start: 02-06-2022 End: 02-06-[address] . Facility:[facility] Procedures Date Procedure Procedure Detail Performing Clinician Start: 12-21-2024 IGP,APTIMA HPV,AGE GDLN Noah Isabelle DO Work Phone: Start: 12-17-2022 Microscopic observation [Identifier] in Cervix by Cyto stain Noah Braxtono DO Work Phone: H/O: hysterectomy Status post hysterectom y Noah Isabelle DO Work Phone: H/O: hysterectomy Status post hysterectom y Noah Isabelle DO Work Phone: Plan of Treatment Date Care Activity Detail Author Start: 12-28-2025 End: 12-28-2025 Patient encounter procedure 12/28/2025 4:00 PM EDT Office Visit [facility] [address] [place] [address] Noah Walton, DO [address], [place] [id number] [facility] Start: 12-17-2025 Screening for malign ant neoplasm of cervix [facility] Start: 05-09-2025 Influenza vaccination Influenz a Vaccine (Season Ended) [facility] Start: 12-21-2024 End: 12-21-2024 Patient encounter procedure 12/21/2024 3:00 PM EDT Office Visit [facility] [address] [place] [id number] Noah Walton, DO [address], [place] [id number] Arrived [facility] Comment on above: Arrived Start: 09-13-2024 End: 09-13-2024 Patient encounter procedure 09/13/2024 2:50 PM EST Office Visit [facility] [address] [place] [address] Noah Walton, DO [address], [place] [id number] Arrived [facility] Comment on above: Arrived Start: 05-09-2024 Influenza vaccination Influenza Vacc ine (#1) [facility] Start: 2023 Screening for malign ant neoplasm of cervix HPV/[facility] Start: 05-16-2022 End: 05-14-2023 25-hydroxyvitamin D3 [Mass/volume] in Serum or Plasma VITAMIN D 25 HYDROXY Lab Routine Abnormal weight gain Preop testing Morbid obesity with BMI of 50.0-59.9, adult (HCC) HANH (obstructive sleep apnea) Expected: 05/16/2022 (Approximate), Expires: 05/14/2023 [facility] Work Phone: Comment on above: Expected: 05/16/2022 (Approximate), Expires: 05/14/2023 Start: 05-16-2022 End: 05-14-2023 CBC panel - Blood by Automated count CBC Lab Routine Abnormal weight gain Preop testing Morbid obesity with BMI of 50.0-59.9, adult (HCC) HANH (obstructive sleep apnea) Expected: 05/16/2022 (Approximate), Expires: 05/14/2023 [facility] Work Phone: Comment on above: Expected: 05/16/2022 (Approximate), Expires: 05/14/2023 Start: 05-16-2022 End: 05-14-2023 Cobalamin (Vitamin B12) [Mass/volume] in Serum or Plasma VITAMIN B12 BLOOD Lab Routine Abnormal weight gain Preop testing Morbid obesity with BMI of 50.0-59.9, adult (HCC) HANH (obstructive sleep apnea) Expected: 05/16/2022 (Approximate), Expires: 05/14/2023 [facility] Work Phone: Comment on above: Expected: 05/16/2022 (Approximate), Expires: 05/14/2023 Start: 05-16-2022 End: 05-14-2023 Comprehensive metabolic 2000 panel - Serum or Plasma COMP METABOLIC PANEL Lab Routine Abnormal weight gain Preop testing Morbid obesity with BMI of 50.0-59.9, adult (HCC) HANH (obstructive sleep apnea) Expected: 05/16/2022 (Approximate), Expires: 05/14/2023 [facility] Work Phone: Comment on above: Expected: 05/16/2022 (Approximate), Expires: 05/14/2023 Start: 05-16-2022 End: 05-14-2023 Folate [Mass/volume] in Serum or Plasma FOLATE SERUM Lab Routine Abnormal weight gain Preop testing Morbid obesity with BMI of 50.0-59.9, adult (HCC) HANH (obstructive sleep apnea) Expected: 05/16/2022 (Approximate), Expires: 05/14/2023 [facility] Work Phone: Comment on above: Expected: 05/16/2022 (Approximate), Expires: 05/14/2023 Start: 05-16-2022 End: 05-14-2023 Hemoglobin A1c in Blood HGB A1C Lab Routine Abnormal weight gain Preop testing Morbid obesity with BMI of 50.0-59.9, adult (HCC) HANH (obstructive sleep apnea) Expected: 05/16/2022 (Approximate), Expires: 05/14/2023 [facility] Work Phone: Comment on above: Expected: 05/16/2022 (Approximate), Expires: 05/14/2023 Start: 05-16-2022 End: 05-14-2023 Iron and Iron binding capacity panel - Serum or Plasma IRON + TIBC Lab Routine Abnormal weight gain Preop testing Morbid obesity with BMI of 50.0-59.9, adult (HCC) HANH (obstructive sleep apnea) Expected: 05/16/2022 (Approximate), Expires: 05/14/2023 [facility] Work Phone: Comment on above: Expected: 05/16/2022 (Approximate), Expires: 05/14/2023 Start: 05-16-2022 End: 05-14-2023 Parathyrin.intact [Mass/volume] in Serum or Plasma PTH INTACT BLD Lab Routine Abnormal weight gain Preop testing Morbid obesity with BMI of 50.0-59.9, adult (HCC) HANH (obstructive sleep apnea) Expected: 05/16/2022 (Approximate), Expires: 05/14/2023 [facility] Work Phone: Comment on above: Expected: 05/16/2022 (Approximate), Expires: 05/14/2023 Start: 05-16-2022 End: 05-14-2023 Thyrotropin [Units/volume] in Serum or Plasma TSH BLD Lab Routine Abnormal weight gain Preop testing Morbid obesity with BMI of 50.0-59.9, adult (HCC) HANH (obstructive sleep apnea) Expected: 05/16/2022 (Approximate), Expires: 05/14/2023 [facility] Work Phone: Comment on above: Expected: 05/16/2022 (Approximate), Expires: 05/14/2023 Start: 05-16-2022 End: 07-16-2022 VITAMIN B1 (THIAMINE), WHOLE BLOOD VITAMIN B1 (THIAMINE), WHOLE BLOOD Lab Routine Abnormal weight gain Preop testing Morbid obesity with BMI of 50.0-59.9, adult (HCC) HANH (obstructive sleep apnea) Expected: 05/16/2022 (Approximate), Expires: 07/16/2022 [facility] Work Phone: Comment on above: Expected: 05/16/2022 (Approximate), Expires: 07/16/2022 Start: 05-09-2022 Influenza vaccination INFLUENZA (#1) [facility] Start: 05-05-2022 COVID-19 VACCINE (3 - Booster for Pfizer series) COVID-19 VACCINE (3 - Booster for Pfizer series) [facility] Start: 2014 PAP TESTING PAP TESTING [facility] Start: 2012 Urine microalbumin profile DTAP,TDAP,TD (1 - Tdap) [facility] Start: 2011 HEPATITIS C SCREENING HEPATITIS C SC JOESPHNING [facility] Start: 2011 HIV SCREENING HIV SCREENING [facility] Start: 2005 Adult depression screening assessment DEPRESSION SCREENING [facility] Start: 1993 HEPATITIS B (1 of 3 - 3-dose series) HEPATITIS B (1 of 3 - 3-dose series) [facility] Cytology Cervical or vaginal smear or scraping study Pap Smear Pathology and Cytology Routine Well woman exam with routine gynecological exam Ordered: 12/21/2024 [facility] Work Phone: Comment on above: Ordered: 12/21/2024 End: 05-14-2023 ECG COMPLETE ECG COMPLETE ECG Routine Abnormal weight gain Preop testing Morbid obesity with BMI of 50.0-59.9, adult (HCC) HANH (obstructive sleep apnea) 1 Occurrences starting 05/16/2022 until 05/14/2023 [facility] Work Phone: Comment on above: 1 Occurrences starti ng 05/16/2022 until 05/14/2023 Human papilloma viru s DNA [Presence] in Unspecified specimen by Probe with amplification HPV DNA probe, amplified Microbiology Routine Well woman exam with routine gynecological exam Ordered: 12/21/2024 [facility] Comment on above: Ordered: 12/21/2024 End: 06-13-2023 Radiologic exam chest 2 views XR CHEST 2V FRONTAL/LAT Radiology Routine Abnormal weight gain Preop testing Morbid obesity with BMI of 50.0-59.9, adult (HCC) HANH (obstructive sleep apnea) 1 Occurrences starting 05/16/2022 until 06/13/2023 [facility] Work Phone: Comment on above: 1 Occurrences starti ng 05/16/2022 until 06/13/2023 [facility] Immunizations Immunization Date Immunization Notes Care Provider Simba may 06-18-2022 influenza virus vacc ine, unspecified formulation Noah Walton DO Work Phone: [facility] Payers Date Payer Category Payer Medicaid [employer] [employer] [id number] 2018-Present [phone] [address] [place], [place] [address] Medicaid [id number] 2018 Medicaid (Managed Care) [employer] [id number] 1993 Unknown [id number] 2.16.840.1.514433.3.579.2. 593 1993 Unknown [id number] 2.16.840.1.748825.3.579.2. 593 1993 Unknown [id number] 2.16.840.1.342055.3.579.2. 593 1993 Unknown [id number] 2.16.840.1.155152.3.579.2. 593 1993 Unknown [id number] 2.16.840.1.707533.3.579.2. 593 1993 Unknown [id number] 2.16.840.1.768525.3.579.2. 593 1993 Unknown [id number] 2.16.840.1.588653.3.579.2. 593 1993 Unknown [id number] 2.16.840.1.595447.3.579.2. 593 1993 Unknown [id number] 2.16.840.1.072448.3.579.2. 593 1993 Unknown [id number] 2.16.840.1.131593.3.579.2. 593 1993 Unknown [id number] 2.16.840.1.903121.3.579.2. 593 1993 Unknown [id number] 2.16.840.1.333037.3.579.2. 593 1993 Unknown [id number] 2.16.840.1.157480.3.579.2. 593 1993 Unknown [id number] 2.16.840.1.196322.3.579.2. 593 1993 Unknown [id number] 2.16.840.1.934614.3.579.2. 593 1993 Unknown [id number] 2.16.840.1.304525.3.579.2. 593 1993 Unknown [id number] 2.16.840.1.952280.3.579.2. 727 1993 Unknown [id number] 2.16.840.1.157731.3.579.2. 727 1993 Unknown [id number] 2.16.840.1.131814.3.579.2. 727 1993 Unknown [id number] 2.16.840.1.156816.3.579.2. 1259 1993 Unknown [id number] 2.16.840.1.640897.3.579.2. 1259 1993 Unknown [id number] 2.16.840.1.810966.3.579.2. 1286 1993 Unknown [id number] 2.16.840.1.999782.3.579.2. 1286 1959 Unknown [id number] Social History Date Type Detail Facility Start: 04-26-2022 End: 01-27-2023 Tobacco smoking status RIIS Never smoked tobacco [facility] Start: 04-26-2022 End: 01-27-2023 Tobacco use and exposure Smokeless tobacco non-user [facility] Start: 1993 Sex Assigned At Not on file [facility] Start: 04-14-2022 End: 04-24-2022 Exposure to SARS-CoV-2 (event) Not sure [facility] Start: 05-05-2023 End: 09-13-2024 Alcoholic beverage intake Ex-drinker (finding) [facility] Start: 05-05-2023 End: 09-13-2024 History of Social function [facility] Start: 05-05-2023 End: 09-13-2024 Tobacco use panel [facility] Clinical Notes 02-15-2022 to 05-11-2025 Avani Calle LPN - 12/21/2024 3:00 PM Ovidio Elizabeth LPN - 09/13/2024 2:50 PM ESTPatient InstructionsPatient InstructionsRosa Maria Israel MD - 05/16/2022 2:15 PM EDT Note Date & Type Note Facility 05-11-2025 Note Subjective Patient ID: Connie Salcido is a 29 y.o. female who presents for Post-op (Patient is here for s/p 04/29/2025 robotic incisional hernia repair with mesh. ). HPI Review of Systems Constitutional: Negative. HENT: Negative. Eyes: Negative. Respiratory: Negative. Cardiovascular: Negative. Gastrointestinal: Negative. Endocrine: Negative. Genitourinary: Negative. Musculoskeletal: Negative. Skin: Positive for wound. Allergic/Immunologic: Negative. Neurological: Negative. Hematological: Negative. Objective Visit Vitals BP 150/87 (BP Location: Left arm, Patient Position: Sitting, BP Cuff Size: Large adult) Pulse 99 Temp 37.3 ???C (99.1 ???F) (Oral) Resp 17 Physical Exam Assessment/Plan No diagnosis found. No orders of the defined types were placed in this encounter. No results found for this or any previous visit (from the past 36 hours). No follow-ups on file. [facility] 05-11-2025 Note Subjective Patient ID: Connie Salcido is a 29 y.o. female who presents for Post-op (Patient is here for s/p 04/29/2025 robotic incisional hernia repair with mesh. ). HPI Patient reports that she has achy, intermittent pain that feels like muscular pain located to the area of repair. She says that certain movements like sitting up or getting out of bed cause a flareup of the pain at which point, it is a 7 out of 10 in severity. She states that 3 of the 4 laparoscopy ports are well-healed but 1 had glue that was stuck on which caused the skin to tear. She states that it appeared infected and had drainage. She went to the emergency department over the weekend for this. She was given antibiotics and pain medications. She states that it appears better now. She says that her appetite is okay. She denies vomiting blood in the stool or trouble with bowel movements. She would like to have a new binder. She also was wondering about her activity restrictions and whether she can resume work. Review of Systems Constitutional: Negative. HENT: Negative. Eyes: Negative. Respiratory: Negative. Cardiovascular: Negative. Gastrointestinal: Negative. Endocrine: Negative. Genitourinary: Negative. Musculoskeletal: Negative. Skin: Positive for wound. Allergic/Immunologic: Negative. Neurological: Negative. Hematological: Negative. Objective Visit Vitals BP 150/87 (BP Location: Left arm, Patient Position: Sitting, BP Cuff Size: Large adult) Pulse 99 Temp 37.3 ???C (99.1 ???F) (Oral) Resp 17 Physical Exam Constitutional: Appearance: She is obese. HENT: Head: Atraumatic. Cardiovascular: Rate and Rhythm: Normal rate. Pulmonary: Effort: Pulmonary effort is normal. Abdominal: Tenderness: There is abdominal tenderness. Comments: Tenderness to light palpation in the periumbilical region. 3/4 laparoscopic port sites appear well healed. The left inferior one is slightly erythematous after removing dressing Skin: General: Skin is warm and dry. Neurological: Mental Status: She is alert. Assessment/Plan There are no diagnoses linked to this encounter. Periumbilical pain due to healing post robotic hernia repair with mesh Dressing removed on the previously infected port site. Patient advised to not cover the port site but can shower and wash thoroughly. Advised to continue wearing abdominal binder tightly all the time Reminded patient not to lift greater than 20 pounds. 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 No orders of the defined types were placed in this encounter. No results found for this or any previous visit (from the past 36 hours). No follow-ups on file. Ion Kinsey, MS3 [facility] [employer] 05/11/25 [facility] 04-29-2025 Note Patient: Connie Salcido Procedure Summary Date: 04/29/25 Room / Location: [facility] OPERATING ROOM 13 / [facility] Operating Room Anesthesia Start: 1231 Anesthesia Stop: 1626 Procedure: ROBOTIC INCISIONAL HERNIA REPAIR WITH MESH (Abdomen) Diagnosis: Incisional hernia, without obstruction or gangrene (Incisional hernia, without obstruction or gangrene [K43.2]) Surgeons: Delfina Tanner MD Responsible Provider: Naldo Zuniga MD Anesthesia Type: general ASA Status: 4 Anesthesia Type: general Vitals Value Taken Time BP 160/77 04/29/25 17:25 Temp 36.4 ???C (97.5 ???F) 04/29/25 16:25 Pulse 100 04/29/25 17:30 Resp [...] no known notable events for this encounter. [facility] 04-29-2025 Note Calculus Tutor answered [facility] questions regarding self care and activity. Pt verbalized understanding and reminded that a physician is available 31/03 if any farther questions. [facility] 04-29-2025 Note Airway Date/Time: 04/29/2025 12:44 PM Reason: elective Airway not difficult General Information and Staff Patient location during procedure: OR Anesthesiologist: Naldo Zuniga MD Resident/SR TECHNICAL SALES CONSULTANT/CAA: Tra Ochoa MD Performed: resident/SR TECHNICAL SALES CONSULTANT/CAA Patient Condition Indications for airway management: anesthesia [...] 1 Number of other approaches attempted: 0 [facility] 04-29-2025 Note Patient: Connie Salcido Procedure Information Date/Time: 04/29/25 1300 Procedure: ROBOTIC INCISIONAL HERNIA REPAIR WITH MESH Location: [facility] OPERATING ROOM 13 / [facility] Operating Room Surgeons: Delfina Tanner MD Relevant Problems No relevant active problems [...] discussed with patient who. Additional Equipment Requests [facility] 03-30-2025 Note mraSubjective Patient ID: Connie Salcido [...] past 36 hours). No follow-ups on file. [facility] 03-21-2025 Note Received referral fo r Ventral Hernia. Called patient to schedule consult appt. Needs Pre-Reg. Images Requested. LMVM to call office back to schedule consult appt. [facility] 12-21-2024 History of Present illness Narrative Reason [...] nursing note reviewed. Exam conducted with a mottle lay up operator present. Vitals: Estimated body mass index is [...] Noah Walton DO documented in this encounter [facility] 09-13-2024 History of Present illness Narrative Reason [...] nursing note reviewed. Exam conducted with a mottle lay up operator present. Vitals: Estimated body mass index is [...] Noah Walton DO documented in this encounter [facility] 05-17-2022 Instructions Micaela Cavazos [...] Read Nutrition Guidelines section before next visit. [email or web address]?la=[email or web address] Pre-op goal weight: 276 pounds Protein needs: 70 gm per day Nutrition Monitoring & Evaluation: Weight loss of 1-2 pounds per week and adherence to above recommendations Criteria: Patient update and weight check Need for Follow up: 1 month, please call [phone] documented in this encounter [facility] 05-16-2022 Instructions Rosa Maria Israel MD - 05/16/2022 5:19 PM EDT INSTRUCTIONS: 1) Please contact me (Dr. Israel) if you have not heard about your test results within a few days after you had them done. Thank you: Contact information: [facility] [place] M61/Attention: Dr. Israel [address] [place] [address] 2) Please check with your insurance company regarding cost/coverage of any tests ordered prior to having them completed. Colleen Salcido , Thank you for completing your visit today and we welcome you to the surgical program. We are sure that you will still have some additional questions and encourage you to reach out to your care provider via [employer] OR your Patient Navigator. Patient Navigators are assigned alphabetically by patient last name. The contact information for each Navigator is listed below. Last names A-E= [email or web address] Last names F-L = [email or web address] Last names M-R= [email or web address] Last names S-Z= [email or web address] Additionally, you may find many of [...] free to ask for a hard copy. [email or web address]?la=en Once you complete all of the requirements (testing, consultations, diet, etc) from each provider, please call [phone] and select option #5 to initiate insurance approval. Please note scheduling information It is important to keep track of your scheduled appointments to ensure successful completion of our surgical program. Any missed appointments can further delay your pre-surgical work-up. [facility] does offer an opt-in option for getting text message appointment reminders. Please follow the link below if you would like to opt into this service. [email or web address] As part of [...] these tests. You may call your local [facility] to get an appointment. - Lab work- No appointment is needed for this, you may complete at any [facility]. These are usually fasting labs, please be sure to fast (only water permitted) for 10-12 hours prior to the test. -Sleep Study- Please call [phone] or [phone] to get this appointment set up. -Sleep Medicine Consult- (Only needed if sleep study confirms sleep apnea) Please call [phone] or [phone] to schedule an appointment. Any testing that is completed outside of [facility] will need faxed to [phone]. We look forward to working with you on this journey, Rosa Maria Israel MD documented in this encounter [facility] 05-16-2022 Note HNO ID: [id number] Author: Rosa Maria Israel MD Service: ? [...] and diagnosed-she is on a list for zoyd-ivwwq-aep sleep study was about [employer]: -single/: -children: yes -occupation: works at [employer] -tobacco use: non-smoker -ETOH: 2 per month ALL: See [employer] LABS: IMAGING: PROC: CARDIAC: MEDS: See Epic [...] cardiac, valvular or vascular issues *no h/o NC, CAD, CHF, no cp/palpitations Respiratory: Denies any [...] LMP?//rash/discharge/p elvic pain/menstrual (more content not included)... [facility] 05-16-2022 Note HNO ID: [id number] Author: Micaela Cavazos RD Service: ? Author Type: Registered Dietitian Type: Progress Notes Filed: 05/17/2022 1:34 PM Note Text: [facility] Nutrition Therapy: Virtual Consult - Initial Assessment [...] limited to ADL's although she occasionally walks. [place] body weight: 128 lbs. Excess body weight: 167 lbs. Goal weight pre-op: 276 lbs. Protein needs estimated: 70 (1.2 g protein/kg IBW) Patient meets the National Institutes of Health guidelines for weight loss surgery and has [employer] therefore is required to complete 6 [...] Read Nutrition Guidelines section before next visit. https://my.[facility].org/ -/scassets/files/org/bariatric/ guides/bmigui debook-february2020.ashx?la=en Pre-op goal weight: 276 pounds Protein (more content not included)... [facility] 09-08-2022 History of Present illness Narrative This Team [...] and diagnosed-she is on a list for xjvc-tjzml-vii sleep study was about Sochx: -single/: -children: yes -occupation: works at [employer] -tobacco use: non-smoker -ETOH: 2 per month [...] cardiac, valvular or vascular issues *no h/o NC, CAD, CHF, no cp/palpitations Respiratory: Denies any [...] which included preparing to see the patient, mvfh-rq-nzce patient care, completing clinical documentation, obtaining and/or reviewing separately obtained history, counseling and educating the patient/family/caregiver, ordering medications, tests, or procedures, and care coordination (not separately reported). documented in this encounter [facility] 05-16-2022 History of Present illness Narrative The [facility] Nutrition Therapy: Virtual Consult - Initial Assessment [...] limited to ADL's although she occasionally walks. [place] body weight: 128 lbs. Excess body weight: 167 lbs. Goal weight pre-op: 276 lbs. Protein needs estimated: 70 (1.2 g protein/kg IBW) Patient meets the National Institutes of Health guidelines for weight loss surgery and has [employer] therefore is required to complete 6 [...] Read Nutrition Guidelines section before next visit. https://my.[facility].org/ -/scassets/files/org/bariatric/ guides/bmiguidebook-february2020.as hx?la=en Pre-op goal weight: 276 pounds Protein needs: 70 gm per day Nutrition Monitoring & Evaluation: Weight loss of 1-2 pounds per week and adherence to above recommendations Criteria: Patient update and weight check Need for Follow up: 1 month, please call [phone] MNT Billing Type: Initial Assess/15 min 2 units Signed by: Micaela Cavazos RD documented in this encounter [facility] 04-26-2022 Note HNO ID: [id number] Author: Carlos Tariq MD Service: ? Author Type: Physician Type: Progress Notes Filed: 04/26/2022 2:32 PM Note Text: Consultation requested by Dr. Noah Walton for an opinion regarding incisional hernia. My final recommendations will be communicated back to the requesting physician by way of shared medical record or letter via US mail Pt w remote hx of saul david. Was seen in ED at OSH [...] appreciative of the care Carlos Tariq MD [facility] 03-21-2022 Note PROCEDURE: XR FOOT L T MIN 3 VIEWS COMPARISON: None. HISTORY: Pain in left foot FINDINGS: BONES:No fracture, acute abnormality, or significant arthropathy. SOFT TISSUES:Negative. No visible soft tissue swelling. EFFUSION:None visible. OTHER: Negative. IMPRESSION: No acute abnormality Electronically authenticated by: AYAD MALCOLM Date: 2022-03-21 19:14 [facility] 02-15-2022 Note PROCEDURE: XR ANKLE LT MIN 3 V COMPARISON: 02/07/2020 HISTORY: Pain of left ankle joint FINDINGS: BONES:No fracture, acute abnormality, or significant arthropathy. SOFT TISSUES:Negative. No visible soft tissue swelling. EFFUSION:None visible. OTHER: Negative. IMPRESSION: No acute abnormality Electronically authenticated by: AYAD MALCOLM Date: 2022-02-15 07:35 [facility] Evaluation note Diagnosis Abnormal weight gain- Primary Preop testing Preoperative examination, unspecified Morbid obesity with BMI of 50.0-59.9, adult (HCC) Morbid obesity HANH (obstructive sleep apnea) Obstructive sleep apnea (adult) (pediatric) [facility] Diagnosis Body mass index 50.0-59.9, adult (HCC)- Primary Body Mass Index 50.0-59.9, adult Dietary counseling and surveillance Dietary surveillance and counseling [facility] Diagnosis Sweating abnormality Status post hysterectomy Acquired absence of both cervix and uterus Vaginal dryness Postmenopausal atrophic vaginitis documented in this encounter [facility] note* Diagnosis Well woman exam with routine gynecological exam Routine gynecological examination Sweating abnormality Status post hysterectomy Acquired absence of both cervix and uterus Vaginal dryness Postmenopausal atrophic vaginitis BV (bacterial vaginosis) Unspecified vaginitis and vulvovaginitis Yeast infection of the vagina Candidiasis of vulva and vagina documented in this encounter [facility] for referral (narrative)* Outpatient Procedure (Routine) - Pending Review Specialty Diagnoses / Procedures Referred By Reg t Referred To [facility] Diagnoses Abnormal weight gain Preop testing Morbid obesity with BMI of 50.0-59.9, adult (HCC) HANH (obstructive sleep apnea) Procedures ECG COMPLETE ECG ROUTINE ECG W/LEAST 12 LDS W/I&R Gorty, Rosa Maria A, MD [address] [place] [address] [facility] [place] [address] [place] [address] Referral ID Status Reason Start Date Expiration Date Visits Requested Visits Authorized [id number] Pending Review Auto-Generat ed Referral 05/16/2022 05/14/2023 1 1 [facility] Summary Purpose Family History No Family History [...] or prosecute any alcohol or drug abuse patient.[facility] the event this information is protected by the Federal Confidentiality of Alcohol and Drug Abuse Patient Records regulations: The Federal rules restrict any use of the information to criminally investigate or prosecute any alcohol or drug abuse patient.[facility] Reason for Visit (unrecogniz ed section and content) Reason Comments New Patient Reason Comments Patient Education Assessment Reason Comments Excessive Sweating Reason Comments Well Women Visit Care Teams (unrecognized sec tion and content) Field Service Rep Relationship Specialty Start Date End Date Noah Walton, DO [address] [place] [address] Referring FARMWORKER 04/23/22 Field Service Rep Relationship Specialty Start Date End Date Noah Walton, DO [address] [place] [address] Referring FARMWORKER 04/23/22 Field Service Rep Relationship Specialty Start Date End Date Valerie Way MD [address] [place] [address] PCP - General Family Medicine 01/27/23 Field Service Rep Relationship Specialty Start Date End Date Valerie Way MD [address] [place] [facility] [place] [address] PCP - General Family Medicine 01/27/23 Field Service Rep Relationship Specialty Start Date End Date Valerie Way MD [address] [place] [facility] [place] [address] PCP - General Family Medicine 01/27/23 Field Service Rep Relationship Specialty Start Date End Date Valerie Way MD [address] [place] [facility] [place] [address] PCP - General Family Medicine 01/27/23 Field Service Rep Relationship Specialty Start Date End Date Valerie Way MD [address] [place] [facility] [place] [address] PCP - General Family Medicine 01/27/23 INFORMATION SOURCE (unrecogn ized section and content) DATE CREATED AUTHOR 05/18/2022 [facility] DATE CREATED AUTHOR AUTHOR'S ORGANIZ ATION 01/01/2023 [facility] DATE CREATED AUTHOR AUTHOR'S ORGANIZ ATION 01/08/2024 [facility] DATE CREATED AUTHOR AUTHOR'S ORGANIZ ATION 12/23/2024 [facility] DATE CREATED AUTHOR AUTHOR'S ORGANIZ ATION 05/08/2025 [facility] DATE CREATED AUTHOR AUTHOR'S ORGANIZ ATION 05/13/[address] [facility] FOR RECORDS PERTAINING TO PATIENTS WHO [...] BE BASED ON THE PRIMARY CLINICAL RECORDS. [employer] provides no warranty or guarantee of the accuracy or completeness of information in this document.
== END 2025-05-26 14:00 | disposition home or self-care (01) ==
LOC: MRI 13:59
PROVIDERS: PCP Family Medicine; Visit Provider Family Medicine
DX: G43.909 Migraine, unspecified, not intractable, without status migrainosus (principal); G91.9 Hydrocephalus, unspecified
CPT/HCPCS: 70551

== ENCOUNTER 2025-06-11 15:29 | Emergency (ER) | payer OTHER, SELFPAY ==
--- OUTSIDE RECORDS SUMMARY | 2025-04-25 13:15 | XMS_ITS ---
Author Organization The [facility] in [place] Address [address] [place] [address] Care Team Providers Care Heating Systems Installer Name Role Phone Caesar Donato Primary Care Provider REASON FOR VISIT diet Encounters Encounter Location Date Provider Diagnosis [facility] [address] [place] [address] 04/25/2025 Caesar Donato Plan Of Treatment No Information Progress Notes * Connie SALCIDO MDOB: 4 (29 yo F)Acc No.[id number]:04/25/2025 UNLOCKED PROGRESS NOTE Progress Note Patient: Connie ARITA Provider: Matty Donato MD (TTC) :1995 A ge:29 Y S ex:Female Date:04/25/2025 Address: [facility], [address], [place], [id number] Subjective: * Chief Complaints: * 1 . Diet. * Medical History: Objective: * Vitals: Assessment: Plan: * Treatment: * * Electronic signature of Caesar Donato MD, [id number] on 06/11/2025 at 03:33 PM EDT Sign off status: Pending Visit Status: N /S N/C (No Show/No Charge) * Provider: Matty Donato MD (TTC) Date: 04/25/2025 Generated for Galo nix/Vicky/Natacha on: 1 03:33 PM EDT
--- OUTSIDE RECORDS SUMMARY | 2025-05-06 11:00 | XMS_ITS ---
Author Organization [facility] in [place] Address [address] [place] [address] Care Team Providers Care Activities Leader Name Role Phone Caesar Donato Primary Care Provider REASON FOR VISIT pulled skin off hernia incision Encounters Encounter Location Date Provider Diagnosis [facility] [address] [place] [address] 05/06/2025 Caesar Donato Plan Of Treatment No Information Progress Notes * Connie SALCIDO MDOB: 4 (29 yo F)Acc No.[id number]:05/06/2025 UNLOCKED PROGRESS NOTE Progress Note Patient: Connie ARITA Provider: Matty Donato MD (TTC) :1995 A ge:29 Y S ex:Female Date:05/06/2025 [facility], [place], [id number] Subjective: * Chief Complaints: * 1 . Pulled skin off hernia incision. * Medical History: Objective: * Vitals: Assessment: Plan: * Treatment: * * Electronic signature of Caesar Donato MD, [id number] on 06/11/2025 at 03:33 PM EDT Sign off status: Pending Visit Status: C ANCPHONE (Cancelled Phone) * Provider: Matty Donato MD (TTC) Date: 0 05/06/2025 Generated for Galo nix/Vicky/Anitaitting on: 1 03:33 PM EDT
--- OUTSIDE RECORDS SUMMARY | 2025-05-31 07:52 | XMS_ITS ---
Author Organization The [facility] [place] Address [address] [place] [address] Care Team Providers Care Senior Javascript Developer Name Role Phone Kinga Caesar Primary Care Provider [phone] Reason For Referral Reason MRI head/brain eleva bereket pressures Diagnosis 1 Hydrocephalus (G91.9 ) Referral Organization [facility] Referring Provider First Name Caesar Referring Provider Last Name Kinga Referring Provider Speciality Family [facility] deisy Referred Provider Fabrizio Shah Referred Provider Specialty Neurosurgery Referral Priority Routine REASON FOR VISIT nv injections Encounters Encounter Location Date Provider Diagnosis [facility] [address] [place] [address] 05/31/2025 Caesar Hopatt Hydrocephalus G91.9 and Migraine G43.909 Assessments Encounter Date Diagnosis (ICD Code) Assessment Notes Treatment Notes Treatment Clinical Notes Section Notes 05/31/2025 Hydrocephalus (ICD-10 - G91.9) 05/31/2025 Migraine (ICD-10 - G43.909) Plan Of Treatment Referrals Referral Date Details 05/31/2025 05/31/2025, MRI head /brain elevated pressuresFabrizio Progress Notes * Connie SALCIDO MDOB: 4 (29 yo F)Acc No.[id number]:05/31/2025 Patient: Connie ARITA :1995 A ge:29 Y S ex:Female Address:[address] [place] [address] [address], [address], [place] [address] Subjective: * Chief Complaints: * N v injections * Medical History: * Surgical History: * Hospitalization/Major Diagno stic Procedure: * Medications: Objective: * Vitals: * Physical Examination: Assessment: * Assessment: 1. H ydrocephalus - G91.9 (Primary) 2 . M igraine - G43.909 ? Plan: * Treatment: * Procedure Codes: * true * Date: Generated for Galo nix/Vicky/eTjennifersmitting on: 03:33 PM EDT Consultation Request Notes Referral Date Referring Provider Referred Provider Not es 05/31/2025 Caesar Donato [place] MRI head/brain elevated pressures
--- OUTSIDE RECORDS SUMMARY | 2025-05-31 10:15 | XMS_ITS ---
Author Organization [facility] [place] Address [address] [place] [address] Care Team Providers Care Entertainment Dancer Name Role Phone Caesar Donato Primary Care Provider REASON FOR VISIT Toradol, 60 , norflex 60 , Encounters Encounter Location Date Provider Diagnosis [address] [address] 05/31/2025 Caesar Donato Migraine G43.909 Assessments Encounter Date Diagnosis (ICD Code) Assessment Notes Treatment Notes Treatment Clinical Notes Section Notes 05/31/2025 Migraine (ICD-10 - G43.909) Plan Of Treatment No Information Medications Administered Medication Instructions Date of Administration Dosage Notes Ketorolac Tromethamine 05/31/2025 60 mg Orphenadrine Citrate 05/31/2025 60 mg Promethazine 25mg 05/31/2025 25 mg Progress Notes * Connie SALCIDO MDOB: 4 (29 yo F)Acc No.[id number]:05/31/2025 Progress Note Patient: Shane Connie HARVEY Provider: [facility]ty Donato ([facility] [place] :1995 A ge:29 Y S ex:Female Date:05/31/2025 Address:[address], [address], [place] Check In:01:53 PM ESTCheck O ut:02:02 PM EST Subjective: * Chief Complaints: * T oradol, 60 , norflex 60 , imbdozmi64 * HPI: G eneral: nurse visit for injections. 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 Contracture, left an kle Modified On:06/18/2023 Status:confirmed M24.571 Contracture, right a nkle Modified On:06/18/2023 Status:confirmed M72.2 Plantar fascial fibr omatosis Modified On:06/25/2023 Status:confirmed M76.62 Achilles tendinitis, left leg Modified On:06/25/2023 Status:confirmed M76.61 Achilles tendinitis, right leg Modified On:06/25/2023 Status:confirmed E66.9 Obesity Modified On:09/11/2023 Status:confirmed R10.31 Right lower quadrant abdominal pain Modified On:08/18/2023 Status:confirmed J01.90 Acute sinusitis Modified On:12/04/2023U Status:confirmed K52.9 Acute gastroenteriti s Modified On:12/17/2023 Status:confirmed M79.672 Left foot pain Modified On:02/03/2024 Status:confirmed M54.30 Sciatica Modified On:02/20/2024 Status:confirmed F41.9 Anxiety Modified On:04/09/2024 Status:confirmed F32.9 Depression Modified On:04/09/2024U Status:confirmed M25.551 Hip pain, acute, rig ht Modified On:09/10/2024 Status:confirmed K43.9 Ventral hernia Modified On:03/17/2025 Status:confirmed G91.9 Hydrocephalus Modified On:04/15/2025 Status:confirmed * Medical History: * Surgical History: * Hospitalization/Major Diagno stic Procedure: * Medications: Objective: * Vitals: Assessment: * Assessment: 1. M igraine - G43.909 (Primary) Plan: * Treatment: * Therapeutic Injections: Ketorolac Tromethamine : 60 mg (Route: Intramuscular) given by IRENE Salgado on right gluteus (Migraine) Orphenadrine Citrate : 60 mg (Route: Intramuscular) given by IRENE Salgado on left gluteus (Migraine) Promethazine 25mg : 25 mg (Route: Intramuscular) given by IRENE Salgado on right gluteus (Migraine) * Procedure Codes: 9 6372 THERAP.INJ. OF MED. INTRAMUSCULAR OR [id number] TORADOL, PER 15 MG, Units: 4.00 , Modifiers: JZ J2360 NORFLEX,UP TO 60MG.J2550 PHENERGAN 25MG * * Sign off status: Completed Visit Status: C HK (Check Out) true * Provider: Matty Donato ([facility])MD Date: 0 05/31/2025 Generated for Galo nix/Vicky/Anitaitting on: 1 03:34 PM EDT History and Physical Notes * HPI (History of Present Illness) Category Sub-Category Detail Notes Category Not es General nurse visit for injections
--- OUTSIDE RECORDS SUMMARY | 2025-06-11 15:33 | XMS_ITS | Encounter Summary ---
Author Organization [facility] Address [address] [place] [address] Care Team Providers Care Physician General Internal Medicine Name Role Phone Rojelio Donato MD Primary Care Provider [phone] Encounter Details Date Type Department Care Team (Late Contact Info) Description 03/20/2023 Abstract [facility] [address] [place], [place] [address] [place] [address] Noah Walton DO [address] [place], [place] [address]Ch[place], [place] [address] Social History Tobacco Use Types Packs/Day Years [...] PM EDT Office Visit [facility] [address] [facility] [place] [address] Noah Walton DO [facility] [address] [place], [facility]11 documented as of this encounter Visit Diagnoses Not on filedocumented in this encounter Care Teams Physician General Internal Medicine Relationship Specialty Start Date End Date Rojelio Donato MD PCP - General Family Medicine 01/27/23 documented as of this encounter
--- OUTSIDE RECORDS SUMMARY | 2025-06-11 15:33 | XMS_ITS | Encounter Summary ---
Author Organization [facility] Address [address] [place] [address] Care Team Providers Care Plumbing And Heating Contractor Name Role Phone Noah Walton DO Unavailable [phone] Source Comments In the event this information is protected by the Federal Confidentiality of Alcohol and Drug AbusePatient Records regulations: The Federal rules restrict any use of the information to criminally investigate or prosecute any alcohol or drug abuse patient.[facility] Encounter Details Date Type Department Care Team (Late st Contact Info) Description 05/17/2022 Patient Msg General Surgery [address] [place], [place] [id number] Provider, [facility] Nutrition Summary Social History Tobacco Use Types Packs/Day Years Used Date Smoking Tobacco: Never Smokeless Tobacco: Never Area Deprivation Index Answer Date Francois rded National Score (1-100), lower number is lower ri sk 88 04/26/2022 State Score (1-10), lower number is lower risk N ot on file 04/26/2022 Data from: https://www.neighborhoodatlas.medicine.[facility].edu/. Last address used for calculation [address] 04/26/2022 Comments No Sex and Gender [...] on filedocumented in this encounter Care Teams Plumbing And Heating Contractor Relationship Specialty Start Date End Date Noah Walton DO [address] [place] [address] Referring Dredging Inspector 04/23/22 documented as of this encounter
--- OUTSIDE RECORDS SUMMARY | 2025-06-11 15:33 | XMS_ITS | Encounter Summary ---
Author Organization [facility] Address [address] [place] [address] Care Team Providers Care Credit Product Analyst Name Role Phone Rojelio Donato MD Primary Care Provider [phone] Encounter Details Date Type Department Care Team (Late Contact Info) Description 12/30/2024 Orders Only [facility] [address] [place] [address] [place] [phone] Nena Wilson MA [address] [place] [address] Social History Tobacco Use Types Packs/Day Years [...] EDT Office Visit [facility] [address] [place] [address] Noah Walton DO [address] [place], [place] [address] documented as of this encounter Procedures Procedure Name Priority Date/Time Associated Diagnosis Comments PAP SMEAR Routine 12/21/2024 12:00 AM EDT documented in this encounter Results * Pap Smear (12/21/2024 12:00 AM EDT) Swab Cervical swab / Unknown us Noah Walton DO LAB CYTOLOGY ORDERABLES Final Re sult EXTERNAL LAB documented in this encounter Visit Diagnoses Not on filedocumented in this encounter Care Teams Credit Product Analyst Relationship Specialty Start Date End Date Rojelio Donato MD PCP - General Family Medicine 01/27/23 documented as of this encounter
--- OUTSIDE RECORDS SUMMARY | 2025-06-11 15:33 | XMS_ITS | Encounter Summary ---
Author Organization [facility] Address [address] [place] [address] Care Team Providers Care Pulp Mill Operator Name Role Phone Noah Walton DO Unavailable [phone] Source Comments In the event this information is protected by the Federal Confidentiality of Alcohol and Drug AbusePatient Records regulations: The Federal rules restrict any use of the information to criminally investigate or prosecute any alcohol or drug abuse patient.[facility] Encounter Details Date Type Department Care Team (Late st Contact Info) Description 05/21/2022 Patient Msg Family Medicine [address] [place], [place] [id number] Provider, [facility] Appointments Needed Social History Tobacco Use Types Packs/Day Years Used Date Smoking Tobacco: Never Smokeless Tobacco: Never Area Deprivation Index Answer Date Francois rded National Score (1-100), lower number is lower ri sk 88 04/26/2022 State Score (1-10), lower number is lower risk N ot on file 04/26/2022 Data from: https://www.neighborhoodatlas.medicine.[facility].edu/. Last address used for calculation [address] [...] on filedocumented in this encounter Care Teams Pulp Mill Operator Relationship Specialty [place] [address] [place] [address] Referring Coil Cutter 04/23/22 documented as of this encounter
--- OUTSIDE RECORDS SUMMARY | 2025-06-11 15:33 | XMS_ITS | Encounter Summary ---
Author Organization [facility] Address [address] [place] [address] Care Team Providers Care Dealer Accounts Investigator Name Role Phone Rojelio Donato MD Primary Care Provider [phone] Encounter Details Date Type Department Care Team (Late Contact Info) Description 01/24/2023 Abstract [facility] [address] [place] [address] [place] [address] Julieta Garcia PA [address] [place] [address] Dr Lopez, [place] [address] Social History Tobacco Use Types Packs/Day Years [...] PM EDT Office Visit [facility] [address] [facility] [place] [address] Noah Walton DO [address] [place] [address] documented as of this encounter Visit Diagnoses Not on filedocumented in this encounter Care Teams Dealer Accounts Investigator Relationship Specialty Start Date End Date Rojelio Donato MD PCP - General Family Medicine 01/27/23 documented as of this encounter
--- OUTSIDE RECORDS SUMMARY | 2025-06-11 15:33 | XMS_ITS | Clinical Summary ---
Author Organization [facility] Address [address] [place] [address] Care Team Providers Care Birthing Nurse Name Role Phone Rojelio Donato MD Primary [...] EDT Office Visit [facility] [address] [facility] [place] [address] Noah Walton DO [address] [place], [place] [address] Health Maintenance Due Date Last Done Comments [...] Maintenance Insurance [employer] Care Teams Birthing Nurse Relationship Specialty Start Date End Date Rojelio Donato MD PCP - General Family Medicine 01/27/23
[2025-06-11 15:34] VITALS: BP 138/90; PULSE 94; TEMP 36.7; O2SAT 100; BMI 57.6
--- OUTSIDE RECORDS SUMMARY | 2025-06-11 15:34 | XMS_ITS | Encounter Summary ---
Author Organization [facility] Address [address] [place] [address] Care Team Providers Care Marine Equipment Research Engineer Name Role Phone Rojelio Donato MD Primary Care Provider [phone] Encounter Details Date Type Department Care Team (Late Contact Info) Description 10/14/2023 Clinisync Result Encounter [facility] External Department Unsolicited Carlito Walton DO [address] [place] [address] Social History Tobacco Use Types Packs/Day Years [...] Visit [facility] [place] [address] [place] [address] Carlito Walton DO [address] [place] [address] documented as of this encounter Procedures Procedure Name Priority Date/Time Associated Diagnosis Comments US PELVIS W/ TRANSVAGINAL 10/14/2023 12:52 PM EST documented in this encounter Results * US PELVIS W/ TRANSVAGINAL (10/14/2023 12:52 PM EST) Anatomical Region Laterality Modality Other 10/14/2023 12:5 2 PM EST Narrative 10/14/2023 12:55 PM EST [address] [address] Ultrasound Report Signed Patient: ABDIRAHMAN SALCIDO MR#: [id number] : 1995 Acct:[id number] Age/Sex: 27 / F ADM Date: 10/14/23 Loc: [facility] Attending Dr: Carlito Walton D.O. Ordering Physician: Carlito Walton D.O. Date of Service: 10/14/23 Procedure(s): US pelvis w/ transvaginal Accession Number(s): [id number] cc: Carlito Walton D.O.; Rojelio Donato M.D. [place] [id number] Patient Name: ABDIRAHMAN SALCIDO MRN: [id number] date: 1995 Sex: F Assigned Patient Location: [facility] Current Patient Location: [facility] Accession/Order Number: [id number] Exam Date: 10/14/2023 10:55 Report Date: 10/14/2023 [...] Signed By: 10/14/23 125 DD/ 125 TD/TT: Machine Tool Operator: Procedure Note Radiology, Radiologist, - 10/14/2023 [place] [address] Ultrasound Report Signed Patient: ABDIRAHMAN SALCIDO MMR#: [id number] : 1995Acct:[id number] Age/Sex: 27 / FADM Date: 10/14/23 Loc: [facility] Attending Dr: Carlito Walton D.O. Ordering Physician: Carlito Walton D.O. Date of Service: 10/14/23 Procedure(s): US pelvis w/ transvaginal Accession Number(s): [id number] cc: Carlito Walton D.O.; Rojelio Donato M.D. The [place] [id number] Patient Name: ABIDRAHMAN SALCIDO MRN: [id number] date: 1995 Sex: F Assigned Patient Location: [facility] Current Patient Location: [facility] Accession/Order Number: [id number] Exam Date: 10/14/2023 10:55 Report Date: 10/14/2023 [...] M.D. Signed By:10/14/23 125 DD/ 1252 TD/TT: Machine Tool Operator: us Carlito Isabelle DO [facility] Final Result documented in this encounter Visit Diagnoses Not on filedocumented in this encounter Care Teams Marine Equipment Research Engineer Relationship Specialty Start Date End Date Rojelio Donato MD PCP - General Family Medicine 01/27/23 documented as of this encounter
--- OUTSIDE RECORDS SUMMARY | 2025-06-11 15:34 | XMS_ITS | Encounter Summary ---
Author Organization [facility] tem Address [place] [place] [address] Care Team Providers Care Manager Social Name Role Phone Rojelio Donato MD Primary Care Provider [phone] Encounter Details Date Type Department Care Team (Late st Contact Info) Description 03/10/2020 Documentation [facility] - Labor [address] [place] [address] Fani Weiss RN Social History [...] and set up with an appointment at [facility] on 03/14/20. documented in this encounter Plan of Treatment Not on file documented as of this encounter Visit Diagnoses Not on filedocumented in this encounter Additional Health Concerns Infection Onset Date Last Indicated Resolved Time MRSA Comment:RT ARM (05/08/09) Infection converted via [facility] from [facility] system information 05/12/2009 05/12/2009 05/04/2021 11:19 PM EDT COVID-19 Rule-Out Comment:OB Screening- Patient asymptomatic. 03/10/2020 03/14/2020 03/16/2020 10:47 AM EDT documented as of this encounter Care Teams Manager Social Relationship Specialty Start Date End Date Rojelio Donato MD PCP - General Family Medicine 01/24/20 documented as of this encounter
--- OUTSIDE RECORDS SUMMARY | 2025-06-11 15:34 | XMS_ITS | Patient Health Record ---
Author Organization [facility] [place] Address [address] [place] [address] Care Team Providers Care Crossing [place]man Name Role Phone Caesar Donato Primary Care Provider Mickey Price [phone] Allergies Allergen (clinical drug ingredient) Drug/Non Drug [...] UROBILINOGEN n NITRITE n LEUKOCYTE ESTERASE ++ COVID-19, Flu A+B IH Reviewed date:05/28/2025 03:35:41 PM Interpretation: Performing Lab: Notes/Report: COVID - FLU A - FLU B - Control + UA RANDOM W or MICROSCOPIC Reviewed date:03/16/2025 06:47:02 PM Interpretation: Performing Lab: Notes/Report: [facility] , Color Urine YELLOW YELLOW Clarity Urine CLEAR CLEAR Specific [place] Urine 1.025 1.005-1.025 pH Urine 6.0 5.0-9.0 [...] NO Performing Lab: see note ML - [facility] LB CT abdomen pelvis w con Reviewed date:03/16/2025 07:00:23 PM Interpretation: Performing Lab: Notes/Report: Source Facility: [facility] [place] [address] CT Scan Report Signed Patient: CONNIE SALCIDO MR#: [id number] : 1995 Acct:[id number] Age/Sex: 29 / F ADM Date: 03/16/25 Loc: ER Attending Dr: Ordering Physician: Kiki Abrams M.D. Date of Service: 03/16/25 Procedure(s): CT abdomen pelvis w con Accession Number(s): [id number] cc: Valerie Donato M.D. [place] [address] Patient Name: CONNIE SALCIDO MRN: [id number] date: 1995 Sex: F Assigned Patient Location: ER Current Patient Location: ER Accession/Order Number: [id number] Exam Date: 03/16/2025 18:47 Report Date: 03/16/2025 [...] Abbasi M.D. 03/16/2025 6:51 PM Dictation Location: [place] [address] Electronically authenticated by: [id number] Y Date: 03/16/2025 18:51 Dictated By: Silver Abbasi M.D. Signed By: 03/16/251852 DD/ 50 TD/TT: Clinical Appeals Specialist: PROF PRAVEEN Lee ([facility]) Reviewed date:03/16/2025 06:47:02 PM Interpretation: Performing Lab: Notes/Report: [facility] , Sodium 140 136-145 mmol/L Potassium 3.3 [...] Performing Lab: see note ML - [facility] LB LIVER PROFILE Reviewed date:03/16/2025 06:47:01 PM Interpretation: Performing Lab: Notes/Report: [facility] , Bilirubin Total 0.4 0.2-1.0 mg/dL Bilirubin Direct 0.1 0.0-0.2 mg/dL Aspartate Amino Transferase 32 15-37 U/L Alanine Aminotransferase 51 14-59 U/L Alkaline Phosphatase 73 46-116 U/L Total Protein 7.4 6.4-8.2 g/dL Albumin Level 3.4 3.4-5.0 g/dL Globulin 4.0 Albumin Globulin Ratio 0.9 Performing Lab: see note ML - [facility] LB LIPASE Reviewed date:03/16/2025 06:47:01 PM Interpretation: Performing Lab: Notes/Report: [facility] , Lipase 31.0 16.0-77.0 U/L Performing Lab: see note ML - [facility] LB CBC AUTO DIFF Reviewed date:03/16/2025 06:47:01 PM Interpretation: Performing Lab: Notes/Report: [facility] , White Blood Count 8.7 4.0-11.0 10 [...] Performing Lab: see note ML - [facility] LB AMYLASE Reviewed date:03/16/2025 06:47:01 PM Interpretation: Performing Lab: Notes/Report: [facility] , Amylase 26 25-115 U/L Performing Lab: see note ML - [facility] LB IGP,Aptima HPV,Age Gdln Reviewed date:12/26/2024 07:31:03 PM Interpretation: Performing Lab: Notes/Report: SPATULA-ALONE VAGINA [facility] , Age Gdln ACOG Testing Note . TESTS RESULT FLAG UNITS REF RANGE LAB ------ Clinician Provided Cytology Information Source.............Vagina No. of containers..01 ThinPrep Vial Age Algo ACOG Ofe... 30-65 01 ------ FLAG LEGEND: L-Low Normal,H-High Normal,LL-Alert Low,HH-Alert High <-Panic Low,>-Panic High,A-Abnormal,AA-Critical Abnormal ------ Performed at: 01 =G [facility] [place] [address] Martha Chen MD, IGP, Aptima HPV, rfx 16/18,45 Note . TESTS RESULT FLAG UNITS REF RANGE LAB ------ DIAGNOSIS: 02 NEGATIVE FOR INTRAEPITHELIAL LESION OR MALIGNANCY. Specimen adequacy: 02 Satisfactory for evaluation. Performed by: 02 Jessica Bo, Stockroom Selector ([facility]) . 02 Note: Note 02 The [...] Criteria not met, HPV Genotype not performed. ------ FLAG LEGEND: L-Low Normal,H-High Normal,LL-Alert Low,HH-Alert High <-Panic Low,>-Panic High,A-Abnormal,AA-Critical Abnormal ------ Performed at: 02 WB [facility] [address] [place] [address] Martha Chen MD, HPV Aptima Negative Negative This nucleic acid amplification test detects fourteen high- risk HPV types (16,18,31,33,35,39,45,51,52 ,56,58,59,66,68) without differentiation. Performed at: =G - [facility] [address], [place] [id number] Aerospace Mechanic: Martha Chen MD, Phone: [phone] Performed at: - [facility] [id number] Aerospace Mechanic: Martha Chen MD, Phone: [phone] Performing Lab: see note - [facility] LB CT head/brain wo con Reviewed date:10/06/2024 08:50:29 PM Interpretation: Performing Lab: Notes/Report: Source Facility: [place] [address] CT Scan Report Signed Patient: CONNIE SALCIDO MR#: [id number] : 1995 Acct:[id number] Age/Sex: 28 / F ADM Date: 10/06/24 Loc: ER Attending Dr: Ordering Physician: Jaki Whitman Date of Service: 10/06/24 Procedure(s): CT head/brain wo con Accession Number(s): [id number] cc: Valerie Donato M.D. [place] [address] Patient Name: CONNIE SALCIDO MRN: [id number] date: 1995 Sex: F Assigned Patient Location: ER Current Patient Location: ER Accession/Order Number: [id number] Exam Date: 10/06/2024 17:42 Report Date: 10/06/2024 [...] M.D. Signed By: 10/06/241847 DD/ 44 TD/TT: Clinical Appeals Specialist: KAHLIL Qualitative* Reviewed date:10/06/2024 08:50:29 PM Interpretation: Performing Lab: Notes/Report: [facility] , HCG Qualitative NEGATIVE NEGATIVE Performing Lab: see note ML - [facility] LB SARS-CoV-2 Ag* Reviewed date:10/06/2024 08:50:29 PM Interpretation: Performing Lab: Notes/Report: [facility] , SARS-CoV-2 Ag NEGATIVE NEGATIVE This test has not been FDA cleared or approved, but has been authorized by the FDA under an Emergency Use Authorization (EUA) for use by authorized laboratories certified under CLIA that meet the requirements to perform moderate or high complexity testing. This test has been authorized only for the detection of proteins from SARS-CoV-2, not for any other viruses or pathogens. The emergency use of this test is authorized for the duration of the declaration that circumstances exist justifying the authorization of emergency use of in vitro diagnostic tests for detection and/or diagnosis of Covid-19 under section 564(b)(1) of the Act, 21 U.S.C. 360bbb-3(b)(1), unless the declaration is terminated or authorization is revoked sooner. Performing Lab: see note ML - [facility] LB PROF CHEM 8 (BAS METB) Reviewed date:10/06/2024 08:50:29 PM Interpretation: Performing Lab: Notes/Report: [facility] , Sodium 138 136-145 mmol/L Potassium [...] Performing Lab: see note ML - [facility] LB INFLUENZA A AND B AG Reviewed date:10/06/2024 08:50:29 PM Interpretation: Performing Lab: Notes/Report: [facility] , Influenza Virus A Antigen Negative Negative for Flu A protein antigen. Infection due to Flu A cannot be ruled out. Flu A antigen in the sample may be below the detection limit of the test. Influenza Virus B Antigen Negative Negative for Flu B protein antigen. Infection due to Flu B cannot be ruled out. Flu B antigen in the sample may be below the detection limit of the test. Performing Lab: see note ML - [facility] LB CBC AUTO DIFF Reviewed date:10/06/2024 08:50:29 PM Interpretation: Performing Lab: Notes/Report: [facility] , White Blood Count 9.8 4.0-11.0 [...] Performing Lab: see note ML - [facility] LB COVID-19, Flu A+B IH Reviewed date:12/26/2024 07:31:03 PM Interpretation: Performing Lab: Notes/Report: COVID - FLU A + FLU B - Control + MR head/brain wo con Reviewed date:05/28/2025 03:35:41 PM Interpretation: Performing Lab: Notes/Report: Source Facility: [place] [address] Magnetic Resonance Report Signed Patient: CONNIE SALCIDO MR#: [id number] : 1995 Acct:[id number] Age/Sex: 29 / F ADM Date: 05/26/25 Loc: MRI Attending Dr: Valerie Donato M.D. Ordering Physician: Valerie Donato M.D. Date of Service: 05/26/25 Procedure(s): MR head/brain wo con Accession Number(s): [id number] cc: Valerie Donato M.D. [place] [address] Patient Name: CONNIE SALCIDO MRN: [id number] date: 1995 Sex: F Assigned Patient Location: MRI Current Patient Location: MRI Accession/Order Number: [id number] Exam Date: 05/26/2025 14:15 Report Date: 05/26/2025 23:20 At the request of: VALERIE DONATO MD Procedure: MR head/brain wo con MR head/brain wo con 05/26/2025 2:51 PM SIGN AND SYMPTOMS: Migraine, Hydrocephalus PROTOCOL: Multiplanar multisequence MR images of the brain without IV contrast COMPARISON: None. FINDINGS: Extra axial spaces: Age appropriate. Hemorrhage: None. Ventricular system: Within normal limits. Basal cisterns: Within normal limits and not effaced. Cerebral parenchyma: Normal in signal. 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 Midline shift: None.. Cerebellum: There is 7 mm of downward displacement of the cerebellar tonsils crowding the foramen magnum. Brainstem: Within normal limits. OTHER: Calvarium: Normal marrow signal. Vascular system: Satisfactory flow voids within the anterior and posterior circulation. Visualized Paranasal sinuses: Within normal limits. Visualized Orbits: There is mild prominence of CSF along the optic nerve sheath complex greatest near the head of the optic nerves. Visualized upper cervical spine: Within normal limits. Sella and skull base: There is mild flattening of the dome of the pituitary which is atypical for the patient's age. MR/MR head/brain wo con IMPRESSION: Flattening of the dome of the pituitary is noted along with prominence of CSF along the optic nerve sheath complex. There is accompanying downward displacement of the cerebellar tonsils measuring 7 mm. There is crowding of the foramen magnum as a result. 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 Impression dictated by: Ethan Chery M.D. 05/26/2025 11:20 PM Dictation Location: [place] [address] Electronically authenticated by: [id number] Y Date: 05/26/2025 23:20 Dictated By: Ethan Chery M.D. Signed By: 05/26/252321 DD/ 19 TD/TT: Clinical Appeals Specialist: Reason For Referral Diagnosis 1 Ventral hernia (K43. 9) Referral Organization [facility] Referring Provider First Name Caesar Referring Provider Last Name [facility] Gary Godwin Referred Provider Specialty General Surg yunier Referral Priority Routine Diagnosis 1 Ventral hernia (K43. 9) Referral Organization [facility] Referring Provider First Name Caesar Referring Provider Last Name [facility] Referring Provider [facility] icine Referred Provider Tk Herrera Referred Provider Specialty General Surg yunier Referral Priority Routine Reason MRI head/brain eleva bereket pressures Diagnosis 1 Hydrocephalus (G91.9 ) Referral Organization [facility] Referring Provider First Name Caesar Referring Provider Last Name Kinga Referring Provider Speciality Family Med deisy Referred Provider Fabrizio Shah Referred Provider Specialty Neurosurgery Referral Priority Routine Medications Medication SIG (Take, Route, Frequency, Duration) Notes Start Date End Date Status levoFLOXacin 750 MG 1 tablet Orally Once a day; Duration: 10 day(s) 05/16/2025 Active Bwfzlakngg-XZGP-Qqzpmoka 50-325-40 MG 1 tablet as needed Orally 3 times a day; Duration: 7 days As needed PRN 06/09/2025 Active Ondansetron 4 MG 1 tablet on the tong ue and allow to dissolve Orally Once a day; Duration: 30 days PRN 05/31/2024 Active Benzonatate 200 MG 1 capsule Orally Thr ee times a day; Duration: 7 days 05/16/2025 Active hydrOXYzine HCl 25 MG 1 tablet as needed Orally qid; Duration: 10 days 03/10/2025 Active Cyclobenzaprine HCl 10 MG 1 tablet Orall y tid; Duration: 30 days PRN 10/27/2024 Active predniSONE 20 MG 3 tablets Orally Onc e a day; Duration: 5 days 05/16/2025 Active Pristiq 50 MG 1 tablet Orally Once a day; Duration: 30 days 09/20/2024 Active Social History Tobacco Use: Social History [...] Problem Status W/U Status Risk Notes Problem Contracture of joint of right ankle (disorder) (235402982516384) Contracture, right ankle (M24.571) Active confirmed Problem Contracture of joint of left ankle (disorder) (627505014867863) Contracture, left ankle (M24.572) Active confirmed Problem Plantar fascial fibromatosis (89260751) Plantar fascial fibromatosis (M72.2) Active confirmed Problem Achilles bursitis (502742512) Achilles tendinitis, right leg (M76.61) Active confirmed Problem Achilles bursitis (315184535) Achilles tendinitis, left leg (M76.62) Active confirmed Problem Hydrocephalus (671526765) Hydrocephalus (G91.9) Active confirmed Problem Obesity (550516715) Obesity (E66.9) Active confirmed Problem Anxiety (26494418) Anxiety (F41.9) Active confi rmed Problem Depression (236210095) Depression (F32.9) Active confirmed Problem Migraine (66430379) Migraine (G43.909) Active confirmed Problem Ventral hernia (480776848) Ventral hernia (K43.9) Active confirmed Problem Acute sinusitis (36235089) Acute sinusitis (J01.90) Active confirmed Problem Right lower quadrant pain (175920185) Right lower quadrant abdominal pain (R10.31) Active confirmed Problem Sciatica (11942316) Sciatica (M54.30) Active confirmed Problem Pain in left foot (737621237498031) Left foot pain (M79.672) Active confirmed Problem Acute gastroenteritis (74271224) Acute gastroenteritis (K52.9) Active confirmed Problem Arthralgia of the pelvic region and thigh (768477737) Hip pain, acute, right (M25.551) Active confirmed Vital Signs Temperature 98.3 degrees Fahrenheit 05/16/2025 Blood pressure diastolic 80 mm Hg 05/16/2025 Height 61 in 05/16/2025 Blood pressure systolic 138 mm Hg 05/16/2025 Weight 302.8 lbs 05/16/2025 BMI 57.21 kg/m2 05/16/2025 Encounters Encounter Location Date Provider Diagnosis [address] [address] 09/20/2024 Caesar Hoy Hip pain, acute, rig ht M25.551 and Depression F32.[address] [address] 10/18/2024 Caesar Hoy Cough R05.9 and Influenza J11.[address] [address] 12/01/2024 Caesar Hoy Migraine G43.909 and Obesity E66.[address] [address] 06/15/2024 Caesar Hoy Acute non-recurrent sinusitis, unspecified location J01.90 and Nasal congestion R09.81 [place] [address] [place] [address] 08/04/2024 Caesar Hoy Obesity E66.9 and Sciatica M54.[address] [address] 09/10/2024 Caesar Hoy Hip pain, acute, rig ht M25.[address] [address] 01/12/2025 Caesar Hoy Dysuria R30.[address] [address] 03/10/2025 Caesar Hoy Urinary urgency R39. 15 ; Depression F32.9 and Anxiety F41.[address] [address] 03/24/2025 Caesar Hoy UTI (urinary tract infection), uncomplicated N39.0 and Dysuria R30.[address] [place] [address] 04/15/2025 Caesar Hoy Migraine G43.909 and Hydrocephalus G91.[address] [address] 05/16/2025 Caesar Hoy Cough R05.9 and Acut e bronchitis, unspecified organism J20.9 [place] [address] [address] [facility] [place] [place] [address] 12/02/2024 Caesar Hoy Migraine G43.[address] [place] [address] 05/31/2025 Caesar Hoy Migraine G43.[address] [place] [address] 07/12/2024 Caesar Hoy Obesity E66.[address] [address] 10/27/2024 Caesar Hoy [facility] [address] [place] [address] 11/09/2024 Caesar Hoy Obesity E66.9 [facility] [address] [facility] [place] [address] 12/01/2024 Caesar Hoy Migraine G43.909 [facility] [address] [facility] [place] [address] 12/02/[address] [facility] [address] [facility] [place] [address] 12/29/2024 Caesar H[address] Obesity E66.9 [facility] [address] [facility] [place] [place] [address] 02/22/2025 Caesar Hoy Obesity E66.9 [facility] [address] [facility] [place] [address] 03/16/2025 Caesar Hoy Ventral hernia K43.9 [facility] [address] [facility] [place] [address] 03/17/2025 Caesar Hoy Ventral hernia K43. 9 [facility] [address] [facility] [place] [address] 04/11/2025 Caesar Hoy Obesity E66.9 [facility] [address] [facility] [place] [address] 05/02/2025 Caesar Hoy [facility] [address] [facility] [place] [address] 05/28/[address] [facility] [address] [facility] [place] [address] 05/31/2025 Caesar Hoy Hydrocephalus G91.[address] [facility] [address] [place] [address] 06/08/2025 Caesar Hoy Obesity E66.9 [facility] [address] [facility] [place] [address] 06/08/2025 Caesar Hoy Migraine G43.909 [facility] [address] [place] [address] 06/09/2025 Caesar Donato Obesity E66.9 Assessments Encounter Date Diagnosis (ICD Code) Assessment Notes Treatment Notes Treatment Clinical Notes Section Notes 04/15/2025 Migraine (ICD-10 - G43.909) 04/15/2025 Hydrocephalus (ICD-10 - G91.9) 05/16/2025 Cough (ICD-10 - R05.9) 05/31/2025 Migraine (ICD-10 - G43.909) 07/12/2024 Obesity (ICD-10 - E66.9) 11/09/2024 Obesity (ICD-10 - E66.9) 12/01/2024 Migraine (ICD-10 - G43.909) 12/29/2024 Obesity (ICD-10 - E66.9) 02/22/2025 Obesity (ICD-10 - E66.9) 03/16/2025 Ventral hernia (ICD-10 - K43.9) 03/17/2025 Ventral hernia (ICD-10 - K43.9) 04/11/2025 Obesity (ICD-10 - E66.9) 05/31/2025 Hydrocephalus (ICD-10 - G91.9) 05/31/2025 Migraine (ICD-10 - G43.909) 06/08/2025 Obesity (ICD-10 - E66.9) 06/08/2025 Migraine (ICD-10 - G43.909) 06/09/2025 Obesity (ICD-10 - E66.9) 06/15/2024 Acute non-recurrent sinusitis, unspecified location (ICD-10 - J01.90) Rest and drink more liquids, especially water. You may use a humidifier or vaporizer to help keep the drainage moist. Mesa-qbw-hryogqo Nasal Saline may help the stuffy and runny nose. Use Ibuprofen and or Tylenol as needed for fever, chills, body aches or pain. Children 5 years old should not be given ijcj-fwg-yemfemi cough and cold medications such as guaifenesin and dextromethorphan. If you're over age 5, you may try rhnt-xzg-bsbjnkn cold medications such as guaifenesin and dextromethorphan, [...] until they are finished. You can use jidm-xgf-ifvinap acetaminophen or ibuprofen if needed for pain. You should follow up with your Primary Care Physician or return to clinic if not improving in the next 3-5 days. 03/24/2025 Dysuria (ICD-10 - R30.0) 03/10/2025 Anxiety (ICD-10 - F41.9) 10/18/2024 Influenza (ICD-10 - J11.1) 06/15/2024 Nasal congestion (ICD-10 - R09.81) 05/16/2025 Acute bronchitis, unspecified organism (ICD-10 - J20.9) Rest and drink more liquids, especially water. You may use a humidifier or vaporizer to help keep the drainage moist. Cpcd-hud-xzicicv Nasal Saline may help the stuffy and runny nose. Use Ibuprofen and or Tylenol as needed for fever, chills, body aches or pain. Children 5 years old should not be given rcdn-cmm-satvhxn cough and cold medications such as guaifenesin and dextromethorphan. If you're over age 5, you may try oqkq-oaf-qbsauak cold medications such as guaifenesin and dextromethorphan, [...] go to the emergency room or call 911 10/18/2024 Other Rest and drink more liquids, especially water. You may use a humidifier or vaporizer to help keep the drainage moist. Bykd-rvo-iketfhq Nasal Saline may help the stuffy and runny nose. Use Ibuprofen and or Tylenol as needed for fever, chills, body aches or pain. Children 5 years old should not be given yicm-cpe-becdfgz cough and cold medications such as guaifenesin and dextromethorphan. If you're over age 5, you may try vfkr-zjj-kvvfzcn cold medications such as guaifenesin and dextromethorphan, [...] Date [employer] [place] [employer] [address] [place] [address] [phone] [id number] Connie Salcido Self - patient is the [...] 60 mg Ketorolac Tromethamine 04/15/2025 60 mg Ketorolac Tromethamine 05/31/2025 60 mg Ondansetron HCl 04/15/2025 4 mg Orphenadrine Citrate 05/15/2023 60 mg 60 Orphenadrine Citrate 04/15/2025 60 mg Orphenadrine Citrate 05/31/2025 60 mg Promethazine 25mg 06/03/2024 25 mg Promethazine 25mg 12/01/2024 25 mg Promethazine 25mg 05/31/2025 25 mg Promethazine, 25 mg 05/15/2023 25 [...]
--- OUTSIDE RECORDS SUMMARY | 2025-06-11 15:34 | XMS_ITS | Encounter Summary ---
Author Organization [facility] Address [address] [place] [address] Care Team Providers Care Soaping Machine Back Tender Name Role Phone Rojelio Donato MD Primary Care Provider [phone] Encounter Details Date Type Department Care Team (Late Contact Info) Description 03/20/2023 Abstract [facility] [address] [place], [place] [address] [address] Noah Walton DO [address] [place], [place] [address]Ch[place], [place] [address] Social History Tobacco Use Types Packs/Day Years [...] PM EDT Office Visit [facility] [address] [facility] [place] [address] Noah Walton DO [facility] Elda [place], [facility]11 documented as of this encounter Visit Diagnoses Not on filedocumented in this encounter Care Teams Soaping Machine Back Tender Relationship Specialty Start Date End Date Rojelio Donato MD PCP - General Family Medicine 01/27/23 documented as of this encounter
--- OUTSIDE RECORDS SUMMARY | 2025-06-11 15:34 | XMS_ITS | Clinical Summary ---
Author Organization [employer] Address [id number] [address] [place] [address] Care Team Providers Care Film Drying Machine Operator Name Role Phone Rojelio Donato MD Primary Care Provider [phone] Allergies Active Allergy Reactions Criticality Noted Date [...] 05/06/2025 5:34 PM EDT Emergency [facility] - Emergency [address] [place] [id number] Gary Gómez, Abrasion of abdominal wall, initial [...] drink = 0.6 oz pur e alcohol) [place] Depression Scale Answer Date Recorded [place] Depression Scale Total 7 03/31/2020 The thought [...] - 11 x10E9/L 05/06/2025 2:22 PM EDT [facility] RBC Count 4.75 3.8 - 5.2 X10E12/L 05/06/2025 2:22 PM EDT [facility] Hemoglobin 14.2 11.7 - 15.5 g/dL 05/06/2025 2:22 PM EDT [facility] Hematocrit 42.0 35 - 47 % 05/06/2025 2:22 PM EDT [facility] MCV 88 80 - 100 fL 05/06/2025 2:22 PM EDT [facility] MCH 30.0 27 - 34 pg 05/06/2025 2:22 PM EDT [facility] MCHC 33.9 32 - 36 g/dL 05/06/2025 2:22 PM EDT [facility] RDW 13.4 11.5 - 15 % 05/06/2025 2:22 PM EDT [facility] Platelet Count 277 150 - 450 X10E9/L 05/06/2025 2:22 PM EDT [facility] MPV 7.9 7 - 12 fL 05/06/2025 2:22 PM EDT [facility] Neutrophils % 69.1 % 05/06/2025 2:22 PM EDT [facility] Lymphocytes % 22.7 % 05/06/2025 2:22 PM EDT [facility] Monocytes % 7.1 % 05/06/2025 2:22 PM EDT [facility] Eosinophils % 0.7 % 05/06/2025 2:22 PM EDT [facility] Basophils % 0.4 % 05/06/2025 2:22 PM EDT [facility] Neutrophils Absolute (A) 7.1(H) 1.5 - 6.6 10*3/uL 05/06/2025 2:22 PM EDT [facility] Lymphocytes Absolute 2.3 1.0 - 3.5 10*3/uL 05/06/2025 2:22 PM EDT [facility] Monocytes Absolute 0.7 0.0 - 0.9 10*3/uL 05/06/2025 2:22 PM EDT [facility] Eosinophils Absolute 0.1 0.0 - 0.4 10*3/uL 05/06/2025 2:22 PM EDT [facility] Basophils Absolute 0.0 0.0 - 0.2 10*3/uL 05/06/2025 2:22 PM EDT [facility] Differential Type AUTOMATED DIFFERENTIAL 05/06/2025 2:22 PM EDT [facility] Blood Venous blood / Unknown Venipuncture / Unknown 05/06/2025 2:10 PM EDT 05/06/2025 2:11 PM EDT us Gary Gómez DO LAB BLOOD ORDERABLES Fi nal Result Performing Organization Address City/[facility]/ZIP Co de Phone Number [address] [place] [address], [place] * Duong Top On Ice (05/06/2025 2:09 PM EDT) Extra Tube Auto Resulted 05/06/2025 4:01 PM EDT [facility] Blood Venous blood / Unknown 05/06/2025 2:09 PM EDT 05/06/2025 2:12 PM EDT us Gary Gómez DO LAB BLOOD ORDERABLES Fi nal Result Performing Organization Address City/[facility] Co de Phone Number [address] [place] [address], [place] * Light Blue Top (05/06/2025 2:09 PM EDT) Extra Tube Auto Resulted 05/06/2025 4:01 PM EDT [facility] Blood Venous blood / Unknown 05/06/2025 2:09 PM EDT 05/06/2025 2:12 PM EDT us Gary Gómez DO LAB BLOOD ORDERABLES Fi nal Result Performing Organization Address City/[facility] Co de Phone Number [address] [place] [address], [place] * (ABNORMAL) C-reactive protein (05/06/2025 2:09 PM EDT) C REACTIVE PROTEIN 1.8(H) <=0.7 mg/dL 05/06/2025 2:34 PM EDT [facility] Blood Venous blood / Unknown Venipuncture / Unknown 05/06/2025 2:09 PM EDT 05/06/2025 2:11 PM EDT us Gary Gómez DO LAB BLOOD ORDERABLES Fi nal Result [facility] [address] [place] [address], [place] * (ABNORMAL) Comprehensive metabolic panel (05/06/2025 2:09 PM EDT) SODIUM 134 134 - 146 mmol/L 05/06/2025 2:34 PM EDT [facility] POTASSIUM 4.0 3.5 - 5.0 mmol/L 05/06/2025 2:34 PM EDT [facility] CHLORIDE 105 98 - 109 mmol/L 05/06/2025 2:34 PM EDT [facility] CARBON DIOXIDE 22 22 - 32 mmol/L 05/06/2025 2:34 PM EDT [facility] ANION GAP 7 5 - 15 mmol/L 05/06/2025 2:34 PM EDT [facility] BLOOD UREA NITROGEN 18 5 - 23 mg/dL 05/06/2025 2:34 PM EDT [facility] CREATININE 0.94 0.40 - 1.00 mg/dL 05/06/2025 2:34 PM EDT [facility] Comment:METHOD TRACEABLE TO IDMS STANDARD GLUCOSE 94 65 - 99 mg/dL 05/06/2025 2:34 PM EDT [facility] CALCIUM 8.6 8.5 - 10.5 mg/dL 05/06/2025 2:34 PM EDT [facility] TOTAL PROTEIN 7.6 6.0 - 8.0 g/dL 05/06/2025 2:34 PM EDT [facility] ALBUMIN 3.9 3.2 - 5.3 g/dL 05/06/2025 2:34 PM EDT [facility] ALKALINE PHOSPHATASE 60 39 - 130 U/L 05/06/2025 2:34 PM EDT [facility] AST 25 <=41 U/L 05/06/2025 2:34 PM EDT [facility] ALT 36(H) <=31 U/L 05/06/2025 2:34 PM EDT [facility] BILIRUBIN,TOTAL 0.7 0.3 - 1.2 mg/dL 05/06/2025 2:34 PM EDT [facility] EGFR Non-Race Dependent 83 >=60 ml/min/1.7 3sq.m 05/06/2025 2:34 PM EDT [facility] Comment: eGFR not reported due to non-numeric value for Creatinine. Reported eGFR is based on the CKD-EPI 2020 equation that does not use a race coefficient. Blood Venous blood / Unknown Venipuncture / Unknown 05/06/2025 2:09 PM EDT 05/06/2025 2:11 PM EDT us Gary Gómez DO LAB BLOOD ORDERABLES Fi nal Result [facility] [address] [place] [address], * Mrsa Pcr nasal swab (04/11/2025 3:49 PM EDT) MRSA PCR NASAL Negative Negative 04/11/2025 11:56 PM EDT [facility] Swab 04/11/2025 3:49 PM EDT 04/11/2025 3:51 PM EDT us Tk Herrera MD MICROBIOLOGY - GENERAL ORDERABLE S Final Result [facility] [address] [place] [address], * Protime & INR (04/11/2025 3:49 PM EDT) PROTIME 11.7 9.8 - 13.2 sec 04/11/2025 10:54 PM EDT [facility] INR 1.0 0.9 - 1.2 04/11/2025 10:54 PM EDT [facility] Blood Venous blood / Unknown Venipuncture / Unknown 04/11/2025 3:49 PM EDT 04/11/2025 3:51 PM EDT us Tk Herrera MD LAB BLOOD ORDERABLES Final Resul t [facility] [address] [place] [address], * Basic Metabolic Panel (04/11/2025 3:49 PM EDT) SODIUM 141 134 - 146 mmol/L 04/11/2025 11:21 PM EDT [facility] POTASSIUM 3.7 3.5 - 5.0 mmol/L 04/11/2025 11:21 PM EDT [facility] CHLORIDE 106 98 - 109 mmol/L 04/11/2025 11:21 PM EDT [facility] CARBON DIOXIDE 27 22 - 32 mmol/L 04/11/2025 11:21 PM EDT [facility] ANION GAP 8 5 - 15 mmol/L 04/11/2025 11:21 PM EDT [facility] BLOOD UREA NITROGEN 8 5 - 23 mg/dL 04/11/2025 11:21 PM EDT [facility] CREATININE 0.69 0.40 - 1.00 mg/dL 04/11/2025 11:21 PM EDT [facility] Comment:METHOD TRACEABLE TO IDMS STANDARD GLUCOSE 91 65 - 99 mg/dL 04/11/2025 11:21 PM EDT [facility] CALCIUM 8.7 8.5 - 10.5 mg/dL 04/11/2025 11:21 PM EDT [facility] EGFR Non-Race Dependent >90 >=60 ml/min/1.7 3sq.m 04/11/2025 11:21 PM EDT [facility] Comment: Reported eGFR is based on the CKD-EPI 2020 equation that does not use a race coefficient. Blood Venous blood / Unknown Venipuncture / Unknown 04/11/2025 3:49 PM EDT 04/11/2025 3:51 PM EDT us Tk Herrera MD LAB BLOOD ORDERABLES Final Resul t [facility] [address] [place] [address], from Last 3 Months Insurance [employer] [employer] Advance Directives * Full Code (Latest Code Status on File) Date Activated Date Inactivated Comments 03/17/2020 9:05 AM 03/19/2020 1:38 PM * Full Code Date Activated Date Inactivated Comments 03/09/2020 9:23 PM 03/10/2020 1:18 PM Care Teams Film Drying Machine Operator Relationship Specialty Start Date End Date Rojelio Donato MD PCP - General Family Medicine 01/24/20
--- OUTSIDE RECORDS SUMMARY | 2025-06-11 15:34 | XMS_ITS | Clinical Summary ---
Author Organization [facility] Address [address] [place] [address] Care Team Providers Care Nutrition Services Assistant Name Role Phone Rojelio Donato MD Primary Care Provider [phone] Allergies Active Allergy Reactions Criticality Noted Date [...] to 15 doses. 15 tablet 04/29/2025 Active Active Problems Problem Noted Date Diagnosed Date Incisional hernia, without obstruction or gangre ne 03/30/2025 Encounters Date Type Department Care Team Description 05/11/2025 2:00 PM EDT Office Visit [facility] Surgery Clinic [address] [place] [address] Tk Herrera MD Incisional hernia, without obstruction or gangrene (Primary Dx); Morbid obesity (CMS/HCC) 05/02/2025 Telephone [facility] Surgery Clinic [address] [place] [address] Nara Baker MA 04/29/2025 1:00 PM EDT - 04/29/2025 5:00 PM EDT Surgery [facility] Main Operating Room [address] [place] [address] Tk Herrera MD ROBOTIC INCISIONAL HERNIA REPAIR WITH MESH 04/29/2025 12:31 PM EDT Anesthesia Event [facility] Main Operating Room [address] [place] [address] Naldo Zuniga MD Cox, Jonathan D, [facility] 04/29/2025 10:56 AM EDT - 04/29/2025 6:29 PM EDT Hospital Encounter [facility] [place] [address] Tk Herrera MD Incisional hernia, without obstruction or gangrene Discharge Disposition: Home or Self Care () 04/29/2025 Travel 04/20/2025 Travel 03/31/2025 Telephone [facility] Surgery Clinic [address] [place] [phone] Emmie Anne MA 03/30/2025 3:40 PM EDT - 03/30/2025 11:59 PM EDT Hospital Encounter [facility] Heart Station [address] [place] [address] Incisional hernia, without obstruction or gangrene Discharge Disposition: Home or Self Care () 03/30/2025 2:30 PM EDT Consult [facility] Surgery Clinic [address] [place] [address] Tk Herrera MD Incisional hernia, without obstruction or gangrene (Primary Dx); Easy bruising; Morbid obesity (CMS/HCC) 03/25/2025 - 03/25/2025 11:59 PM EDT Hospital Encounter [facility] Radiology External Films [address] [place] [phone] Discharge Disposition: Home or Self Care () 03/21/2025 Telephone [facility] Surgery Clinic [address] [place] [phone] Ivett Heck MA REFERRAL CONSULT from Last 3 Months [...] afraid of your partner or ex-partner? No 05/11/2025 Emotionally Abused Not on file 05/11/2025 Physically Abused Not on file 05/11/2025 Sexually Abused Not on file 05/11/2025 PHQ-2 Answer Date Recorded Patient Health Questionnaire-2 Score 0 05/11/2025 Comments No Sex and Gender Information Value Date Recorded Sex Assigned at Female 04/29/2025 10:54 AM EDT Legal Sex Female 9:39 PM EDT Gender Identity Female 04/29/2025 10:54 AM EDT Sexual Orientation Heterosexual or Straight 04/09 10:54 AM EDT Last Filed Vital Signs Vital Sign Reading Time Taken Comments Blood Pressure 150/87 05/11/2025 2:07 PM EDT Pulse 99 05/11/2025 2:07 PM EDT Temperature 37.3 C (99.1 F) 05/11/2025 2:07 PM EDT Respiratory Rate 17 05/11/2025 2:07 PM EDT Oxygen Saturation 100% 05/11/2025 2:07 PM EDT Inhaled Oxygen Concentration - - Weight 138 kg (304 lb) 05/11/2025 2:07 PM EDT Height 154.9 cm (5' 1 ) 04/29/2025 11:12 AM EDT Body Mass Index 57.44 04/29/2025 11:12 AM EDT Plan of Treatment Upcoming Encounters Date Type Department Care Team (Late st Contact Info) Description 06/29/2025 2:45 PM EDT Office Visit [facility] Surgery Clinic [address] [place] [phone] Tk Herrera MD [address] [phone] Health Maintenance Due Date Last Done Comments Varicella Vaccines (1 of 2 - 13+ 2-dose series) 2006 Adult Tetanus 2015 04/24/2007 HPV/Cotest 2023 COVID-19 Vaccine (2 - 2024- season) 2025 06/18/2022, 12/03/2021, 10/25/2021 Influenza Vaccine (#1) 2025 , 06/27/2009, 10/18/2008, Additional history exists Depression Screening 05/11/2026 05/11/2025 Cervical Cancer Screening 12/22/2027 Pap Smear 12/22/2027 [...] this topic Medical Devices Implanted Type Area Urinalysis Technician Device Identifier Shelf Expiration Date Model / Serial / Lot Mesh,Surcigal, Progrip,[id number] m - [id number] Implanted:Qty: 1 on 04/29/2025 by Tk Herrera MD at [facility] Mesh N/A: Abdomen [employer] [id number] 06/07/2029 [id number] / / [id number] Procedures Procedure Name Priority Date/Time Associated Diagnosis Comments UT AN ELECTIVE ENDOTRACHEAL AIRWAY Routine 04/29/2025 12:44 PM EDT REPAIR, HERNIA, VENTRAL, ROBOT-ASSISTED 04/29/2025 12:33 PM EDT Incisional hernia, without obstruction or gangrene POCT GLUCOSE METER UNSOLICITED RESULTS Routine 04/29/2025 [...] during procedure: OR Anesthesiologist: Naldo Zuniga MD Resident/DIALYSIS CLINICAL MANAGER/CAA: Tra Ochoa MD Performed: resident/DIALYSIS CLINICAL MANAGER/CAA Patient Condition Indications for airway management: [...] - 105 mg/dL 04/29/2025 11:52 AM EDT [facility] Comment:ngrotha Blood Capillary blood specimen / Unknown 04/29/2025 11:36 AM EDT 04/29/2025 11:52 AM EDT Narrative [facility]) - 04/29/2025 11:52 AM EDT Waived Testing in the ED is performed under the ED CLIA certificate #[id number]. us Tk Herrera MD LAB BLOOD ORDERABLES Final Resul t [facility] ([facility] [address] [place] [address] * ECG 12 lead (03/30/2025 4:24 PM EDT) Ventricular Rate 65 BPM GE MUSE Atrial Rate 65 BPM GE MUSE UT Interval 170 ms GE MUSE QRS DURATION 84 ms GE MUSE QT Interval 436 ms GE MUSE QTC CALCULATION(BAZE TT) 453 ms GE MUSE P [place] 27 degrees GE MUSE R-[place] 3 degrees GE MUSE T Wave [place] 37 degrees GE MUSE 03/30/2025 4:10 PM EDT 03/30/2025 4:58 PM EDT Impressions GE MUSE - 03/30/2025 4:58 PM EDT Normal sinus rhythm Normal ECG No previous ECGs available Confirmed by Beto MEDINA, CINDY Bhagat ([id number]) on 03/30/2025 4:58:03 PM Narrative Procedure Note Cindy Medina MD - 03/30/2025 IMPRESSION: Normal sinus rhythm Normal ECG No previous ECGs available Confirmed by Beto MEDINA SAMER J. ([id number]) on 03/30/2025 4:58:03 PM us Tk Herrera MD ECG ORDERABLES Final Result GE MUSE * CT transfer of outside films (03/25/2025 12:00 AM EDT) Narrative IMAGING - 03/25/2025 9:21 AM EDT This order has been auto-finalized and does not contain a result. us Tk Herrera MD IMG CT PROCEDURES Final Result IMAGING from Last 3 Months Insurance [facility] MEDICAID Advance Directives * Full Code (Latest Code Status on File) Date Activated Date Inactivated Comments 04/29/2025 11:10 AM 04/29/2025 8:29 PM Care Teams Nutrition Services Assistant Relationship Specialty Start Date End Date Rojelio Donato MD [address] [facility] [address] [address] PCP - General Family Medicine 03/21/25
--- OUTSIDE RECORDS SUMMARY | 2025-06-11 15:34 | XMS_ITS | Encounter Summary ---
Author Organization [facility] Address [address] [place] [address] Care Team Providers Care User Experience Architect Name Role Phone Rojelio Donato MD Primary Care Provider [phone] Encounter Details Date Type Department Care Team (Late st Contact Info) Description 05/02/2025 Telephone [facility] Surgery Clinic [address] [place] [address] Nara Baker MA Social History Tobacco Use Types Packs/Day Years [...] AM EDT documented as of this encounter Functional Status * BP Answer Date of Assessment Author 150/87 05/11/2025 2:07 PM EDT Jaime Heck MA * Pulse Answer Date of Assessment Author 99 05/11/2025 2:07 PM EDT Jaime Heck MA * Patient Position Answer Date of Assessment Author Sitting 05/11/2025 2:07 PM Jaime Lagunas MA * Fall Risk Question Answer Date of Assessment Author Worried about fallin 05/11/2025 2:09 PM Ivett Lagunas MA One or more falls in the last year: No 05/11 2:09 PM Ivett Lagunas MA Feels unsteady when walkin 05/11/2025 2 :09 PM Ivett Lagunas MA * BP Answer Date of Assessment Author 150/87 05/11/2025 2:07 PM EDJaime Bowen MA * Temp Answer Date of Assessment Author 99.1 05/11/2025 2:07 PM Jaime Lagunas MA * Temp src Answer Date of Assessment Author Oral 05/11/2025 2:07 PM Jaime Lagunas MA * Pulse Answer Date of Assessment Author 99 05/11/2025 2:07 PM Jaime Lagunas MA * Resp Answer Date of Assessment Author 17 05/11/2025 2:07 PM Jaime Lagunas MA * SpO2 Answer Date of Assessment Author 100 05/11/2025 2:07 PM Jaime Lagunas MA * Over the past 2 weeks, how often have you been bothered by any of the following problems? Question Answer Date of Assessment Author Little interest or pleasure in doing things Not at all 05/11/2025 2:09 PM Ivett Lagunas MA Feeling down, depressed, or hopeless Not at all 05/11/2025 2:09 PM Ivett Lagunas MA Patient Health Questionnaire -2 Score 0 05/11/2025 2:09 PM Ivett Lagunas MA * BP Location Answer Date of Assessment Author Left arm 05/11/2025 2:07 PM Jaime Lagunas MA * Modified Malnutrition Screen Tool (MST) Question Answer Date of Assessment Author Have you been eating poorly because of a decreased appetite? No 05/11/2025 2:10 PM Ivett Lagunas M A Have you recently lost weigh t without trying? No 05/11/2025 2:10 PM Ivett Lagunas MA * Patient Position Answer Date of Assessment Author Sitting 05/11/2025 2:07 PM EDT Jaime Heck MA documented as of this encounter Plan of Treatment Upcoming Encounters Date Type Department Care Team (Late st Contact Info) Description 06/29/2025 2:45 PM EDT Office Visit [facility] Surgery Clinic [address] [place] [address] Tk Herrera MD [address] [facility] [address] [address] documented as of this encounter Visit Diagnoses Not on filedocumented in this encounter Care Teams User Experience Architect Relationship Specialty Start Date End Date Rojelio Donato MD [address] [facility] [address] [address] PCP - General Family Medicine 03/21/25 documented as of this encounter
--- OUTSIDE RECORDS SUMMARY | 2025-06-11 15:35 | XMS_ITS | CCD ---
Author Organization [facility] Care Team Providers Care Charting Clerk Name Role Phone Noah Walton DO Unavailable [...] Unavailable ISABELLE ., DR ESTEBAN Admitting Unavailable MCKENZIE EDGAR Consulting Unavailable SEAMUS ., DR PADILLA [...] Unavailable Valerie Way MD Primary Care Provider [phone] NOAH WALTON Attending Unavailable NOAH WALTON Attending [...] [MELOXICAM] Drug Allergy 0 Other: See Comments [facility] (2 sources) Acetaminophen / HYDROcodone; Translations: [Luverne] Drug Allergy The [facility] Repository (2 sources) HYDROmorphone; Translations: [Dilaudid] Drug Allergy The [facility] Repository (1 source) meloxicam Drug Allergy The [facility] Repository (7 sources) meloxicam Drug Allergy 2 Headache [facility] Work Phone: (4 sources) HYDROcodone; Translations: [HYDROCODONE] Drug Allergy 6 Other [facility] (1 source) HYDROmorphone; Translations: [HYDROMORPHONE] Drug Allergy [address] [facility] Repository (1 source) ALLERGIES NOT ON FILE; Translations: [ALLERGIES NOT ON FILE] Propensity to adverse reactions (disorder) [facility] Repository Medications Current Medications Medication Drug Class(es) Dates Sig (Normalized) Sig (Original) 168 hr estradiol 0.76253 mg/hr transdermal system (8 sources) Estrogen Start: [...] by viri every 6 hours as needed. 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 Normal [facility] C-REACTIVE PROTEINon 025 C REACTIVE PROTEIN 1.8 mg/dL High <=0.7 [facility] Comment on above: Performed By: #### C RP #### [facility] ([address] [address] VIR CBC WITH AUTO DIFFERENTIALon 05-06-2025 BASOPHILS ABSOLUTE COUNT (10*3/UL) BY AUTOMATED COUNT 0.0 10*3/uL Normal 0.0-0.2 [facility] Comment on above: Performed By: #### C BCA #### [facility] ([address] [address] VIR BASOPHILS RELATIVE PERCENT BY AUTOMATED COUNT 0.4 % Normal [facility] Comment on above: Performed By: #### C BCA #### [facility] ([address] [place] [address] VIR CELLAVISION DIFFERENTIAL TYPE AUTOMATED DIFFERENTIAL Normal [facility] Comment on above: Performed By: #### C BCA #### [facility] ([address] [address] VIR Eosinophils (Bld) [#/Vol] 0.1 10*3/uL Normal 0.0-0.4 [facility] Comment on above: Performed By: #### C BCA #### [facility] ([address] [address] VIR EOSINOPHILS RELATIVE PERCENT BY AUTOMATED COUNT 0.7 % Normal [facility] Comment on above: Performed By: #### C BCA #### [facility] ([address] [address] VIR Erythrocyte distribution width (RBC) [Ratio] 13.4 % Normal 11.5-15 [facility] Comment on above: Performed By: #### C BCA #### [facility] ([address] [address] VIR Hematocrit (Bld) [Volume fraction] 42.0 % Normal 35-47 [facility] Comment on above: Performed By: #### C BCA #### [facility] ([address] [address] VIR Hemoglobin (Bld) [Mass/Vol] 14.2 g/dL Normal 11.7-15.5 [facility] Comment on above: Performed By: #### C BCA #### [facility] ([address] [address] VIR LYMPHOCYTES ABSOLUTE COUNT (10*3/UL) BY AUTOMATED COUNT 2.3 10*3/uL Normal 1.0-3.5 [facility] Comment on above: Performed By: #### C BCA #### [facility] ([address] [address] VIR LYMPHOCYTES RELATIVE PERCENT BY AUTOMATED COUNT 22.7 % Normal [facility] Comment on above: Performed By: #### C BCA #### [facility] ([address] [address] VIR MCH (RBC) [Entitic mass] 30.0 pg Normal 27-34 [facility] Comment on above: Performed By: #### C BCA #### [facility] ([address] [address] VIR MCHC (RBC) [Mass/Vol] 33.9 g/dL Normal 32-36 [facility] Comment on above: Performed By: #### C BCA #### [facility] ([address] [address] VIR MCV (RBC) [Entitic vol] 88 fL Normal 80-100 [facility] Comment on above: Performed By: #### C BCA #### [facility] ([address] [address] VIR MONOCYTES ABSOLUTE COUNT (10*3/UL) BY AUTOMATED COUNT 0.7 10*3/uL Normal 0.0-0.9 [facility] Comment on above: Performed By: #### C BCA #### [facility] ([address] [address] VIR MONOCYTES RELATIVE PERCENT BY AUTOMATED COUNT 7.1 % Normal [facility] Comment on above: Performed By: #### C BCA #### [facility] ([address] [address] VIR NEUTROPHILS ABSOLUTE COUNT BY AUTOMATED COUNT 7.1 10*3/uL High 1.5-6.6 [facility] Comment on above: Performed By: #### C BCA #### [facility] ([address] [address] VIR NEUTROPHILS RELATIVE PERCENT BY AUTOMATED COUNT 69.1 % Normal [facility] Comment on above: Performed By: #### C BCA #### [facility] ([address] [place] [address] VIR Platelet mean volume (Bld) [Entitic vol] 7.9 fL Normal 7-12 [facility] Comment on above: Performed By: #### C BCA #### [facility] ([address] [place] [address] VIR Platelets (Bld) [#/Vol] 277 10*3/uL Normal 150-450 [facility] Comment on above: Performed By: #### C BCA #### [facility] ([address] [place] [address] VIR RBC COUNT 4.75 X10E12/L Normal 3.8-5.2 [facility] Comment on above: Performed By: #### C BCA #### [facility] ([address] [place] [address] VIR WBC (Bld) [#/Vol] 10.2 10*3/uL Normal 4-11 [facility] Comment on above: Performed By: #### C BCA #### [facility] ([address] [place] [address] VIR COMPREHENSIVE METABOLIC PANE [place] 05-06-2025 Albumin [Mass/Vol] 3.9 g/dL Normal 3.2-5.3 [facility] Comment on above: Performed By: #### C MP #### [facility] ([address] [place] [address] VIR ALP [Catalytic activity/Vol] 60 U/L Normal 39-130 [facility] Comment on above: Performed By: #### C MP #### [facility] ([address] [place] [address] VIR ALT [Catalytic activity/Vol] 36 U/L High <=31 [facility] Comment on above: Performed By: #### C MP #### [facility] ([address] [place] [address] VIR Anion gap [Moles/Vol] 7 mmol/L Normal 5-15 [facility] Comment on above: Performed By: #### C MP #### [facility] ([place] [address] [place] [address] VIR AST [Catalytic activity/Vol] 25 U/L Normal <=41 [facility] Comment on above: Performed By: #### C MP #### [facility] ([place] [address] [place] [address] VIR Bilirubin [Mass/Vol] 0.7 mg/dL Normal 0.3-1.2 [facility] Comment on above: Performed By: #### C MP #### [facility] ([address] [place] [place] [address] VIR Calcium [Mass/Vol] 8.6 mg/dL Normal 8.5-10.5 [facility] Comment on above: Performed By: #### C MP #### [facility] ([address] [place] [address] VIR Chloride [Moles/Vol] 105 mmol/L Normal 98-109 [facility] Comment on above: Performed By: #### C MP #### [facility] ([place] [address] [place] [address] VIR CO2 [Moles/Vol] 22 mmol/L Normal 22-32 [facility] Comment on above: Performed By: #### C MP #### [facility] ([place] [address] [place] [address] VIR Creatinine [Mass/Vol] 0.94 mg/dL Normal 0.40-1.00 [facility] Comment on above: Result Comment: METH OD TRACEABLE TO IDMS STANDARD Performed By: #### C MP #### [facility] ([place] [address] [place] [address] VIR GFR/1.73 sq M.predicted among non-blacks MDRD (S/P/Bld) [Vol rate/Area] 83 mL/min/{1.73_m2} Normal >=60 [facility] Comment on above: Result Comment: eGFR not reported due to non-numeric value for Creatinine. Reported eGFR is based on the CKD-EPI 2020 equation that does not use a race coefficient. Performed By: #### C MP #### [facility] ([address] [place] [address] VIR Glucose [Mass/Vol] 94 mg/dL Normal 65-99 [facility] Comment on above: Performed By: #### C MP #### [facility] ([address] [place] [address] VIR Potassium [Moles/Vol] 4.0 mmol/L Normal 3.5-5.0 [facility] Comment on above: Performed By: #### C MP #### [facility] ([address] [place] [address] VIR Protein [Mass/Vol] 7.6 g/dL Normal 6.0-8.0 [facility] Comment on above: Performed By: #### C MP #### [facility] ([address] [place] [address] VIR Sodium [Moles/Vol] 134 mmol/L Normal 134-146 [facility] Comment on above: Performed By: #### C MP #### [facility] ([address] [place] [address] VIR Urea nitrogen [Mass/Vol] 18 mg/dL Normal 5-23 [facility] Comment on above: Performed By: #### C MP #### [facility] ([address] [place] [address] ABDOMEN AND PELVIS W CONT [...] Ish Shultz MD on 05/06/2025 3:46 PM [facility] Telephoneon 05-02-2025 Telephone [id number] Gricelda Salcido i 1995 F Date Provider Department Center 05/02/2025 GloYVONNEYAW [facility] SURG [facility] No family history on file Normal [facility] HPon 04-29-2025 HP H&P reviewed. The patient was examined and there are no changes to the H&P. Normal [facility] NURSNOTEon 04-29-2025 NURSNOTE Pt alert and oriente d x4, No signs of respiratory distress, discharged in stable condition. Pt walks with a steady gait, without assistance. Pt verbalized discharge instructions and follow up information. Pt transported via wheelchair to vehicle with responsible green party at this time. Normal [facility] OPNOTEon 04-29-2025 OPNOTE - Attestation signed by Delfina Tanner MD at 05/05/2025 2:28 PM Please refer to my operation report. Date: 04/29/2025 Location: [facility] OR Name: Connie Salcido, : 1995, [...] Type Name Action Serial No. Mesh MESH,SURCIGAL,PROGRIP ,[id number] - [id number] Implanted Staff: Waiter/Waitress Bar: Daphney Garcia RN; Mckenzie Ko RN Relief Waiter/Waitress Bar: Daphney Garcia RN; Lamont Price RN Relief [...] scrubbed for the entire procedure. Delfina Tanner [facility] OPNOTE ROBOTIC INCISIONAL HERNIA REPAIR WITH MESH Operative Note Date: 04/29/2025 Location: [facility] OR Name: Connie Salcido, : 1995, [...] Type Name Action Serial No. Mesh MESH,SURCIGAL,PROGRIP ,[id number] - [id number] Implanted Staff: Waiter/Waitress Bar: Daphney Garcia RN; Mckenzie Ko RN Relief Waiter/Waitress Bar: Daphney Garcia RN; Lamont Price RN Relief [...] entire operatio (more content not included)... Normal [facility] POCT GLUCOSE METER UNSOLICIT ED RESULTSon 04-29-2024 Glucose [Mass/Vol] 92 mg/dL Normal 70-105 [facility] Comment on above: Order Comment: Waive d Testing in the ED is performed under the ED CLIA certificate #[id number]. Result Comment: ngro aminata Performed By: #### L [id number] ####[facility] (BEAKER)[address] [place] [address] BASIC METABOLIC PANELon 08-0 Anion gap [Moles/Vol] 8 mmol/L Normal 5-15 [facility] Comment on above: Performed By: #### B MP #### [facility] ([facility]) [address] [place] [address] VIR Calcium [Mass/Vol] 8.7 mg/dL Normal 8.5-10.5 [facility] Comment on above: Performed By: #### B MP #### [facility] ([facility]) [address] [place] [address] VIR Chloride [Moles/Vol] 106 mmol/L Normal 98-109 [facility] Comment on above: Performed By: #### B MP #### [facility] ([facility]) [address] [place] [address] VIR CO2 [Moles/Vol] 27 mmol/L Normal 22-32 [facility] Comment on above: Performed By: #### B MP #### [facility] ([facility]) [address] [place] [address] VIR Creatinine [Mass/Vol] 0.69 mg/dL Normal 0.40-1.00 [facility] Comment on above: Result Comment: METH OD TRACEABLE TO IDMS STANDARD Performed By: #### B MP #### [facility] ([facility]) [address] [place] [address] VIR EGFR (CKD-EPI) NON-RACE DEPENDENT >^90 Normal >=60 [facility] Comment on above: Result Comment: Repo rted eGFR is based on the CKD-EPI 2020 equation that does not use a race coefficient. Performed By: #### B MP #### [facility] ([facility]) [address] [place] [address] VIR Glucose [Mass/Vol] 91 mg/dL Normal 65-99 [facility] Comment on above: Performed By: #### B MP #### [facility] ([facility]) [address] [place] [address] VIR Potassium [Moles/Vol] 3.7 mmol/L Normal 3.5-5.0 [facility] Comment on above: Performed By: #### B MP #### [facility] ([facility]) [address] [place] [address] VIR Sodium [Moles/Vol] 141 mmol/L Normal 134-146 [facility] Comment on above: Performed By: #### B MP #### [facility] ([facility]) [address] [place] [address] VIR Urea nitrogen [Mass/Vol] 8 mg/dL Normal 5-23 [facility] Comment on above: Performed By: #### B MP #### [facility] ([facility]) [address] [place] [address] VIR CBC WITH AUTO DIFFERENTIALon 04-11-2025 BASOPHILS ABSOLUTE COUNT (10*3/UL) BY AUTOMATED COUNT 0.0 10*3/uL Normal 0.0-0.2 [facility] Comment on above: Performed By: #### C BCA #### [facility] ([facility]) [address] [place] [address] VIR BASOPHILS RELATIVE PERCENT BY AUTOMATED COUNT 0.6 % Normal [facility] Comment on above: Performed By: #### C BCA #### [facility] ([facility]) [address] [place] [address] VIR CELLAVISION DIFFERENTIAL TYPE AUTOMATED DIFFERENTIAL Normal [facility] Comment on above: Performed By: #### C BCA #### [facility] ([facility]) [address] [place] [address] VIR Eosinophils (Bld) [#/Vol] 0.0 10*3/uL Normal 0.0-0.4 [facility] Comment on above: Performed By: #### C BCA #### [facility] ([facility]) [address] [place] [address] VIR EOSINOPHILS RELATIVE PERCENT BY AUTOMATED COUNT 0.3 % Normal [facility] Comment on above: Performed By: #### C BCA #### [facility] ([facility]) [address] [place] [address] VIR Erythrocyte distribution width (RBC) [Ratio] 13.5 % Normal 11.5-15 [facility] Comment on above: Performed By: #### C BCA #### [facility] ([facility]) [address] [place] [address] VIR Hematocrit (Bld) [Volume fraction] 42.3 % Normal 35-47 [facility] Comment on above: Performed By: #### C BCA #### [facility] ([facility]) [address] [place] [address] VIR Hemoglobin (Bld) [Mass/Vol] 14.0 g/dL Normal 11.7-15.5 [facility] Comment on above: Performed By: #### C BCA #### [facility] ([facility]) [address] [place] [address] VIR LYMPHOCYTES ABSOLUTE COUNT (10*3/UL) BY AUTOMATED COUNT 2.6 10*3/uL Normal 1.0-3.5 [facility] Comment on above: Performed By: #### C BCA #### [facility] ([facility]) [address] [place] [address] VIR LYMPHOCYTES RELATIVE PERCENT BY AUTOMATED COUNT 33.3 % Normal [facility] Comment on above: Performed By: #### C BCA #### [facility] ([facility]) [address] [place] [address] VIR MCH (RBC) [Entitic mass] 29.9 pg Normal 27-34 [facility] Comment on above: Performed By: #### C BCA #### [facility] ([facility]) [address] [place] [address] VIR MCHC (RBC) [Mass/Vol] 33.1 g/dL Normal 32-36 [facility] Comment on above: Performed By: #### C BCA #### [facility] ([facility]) [address] [place] [address] VIR MCV (RBC) [Entitic vol] 91 fL Normal 80-100 [facility] Comment on above: Performed By: #### C BCA #### [facility] ([facility]) [address] [place] [address] VIR MONOCYTES ABSOLUTE COUNT (10*3/UL) BY AUTOMATED COUNT 0.2 10*3/uL Normal 0.0-0.9 [facility] Comment on above: Performed By: #### C BCA #### [facility] ([facility]) [address] [place] [address] VIR MONOCYTES RELATIVE PERCENT BY AUTOMATED COUNT 3.1 % Normal [facility] Comment on above: Performed By: #### C BCA #### [facility] ([facility]) [address] [place] [address] VIR NEUTROPHILS ABSOLUTE COUNT BY AUTOMATED COUNT 4.9 10*3/uL Normal 1.5-6.6 [facility] Comment on above: Performed By: #### C BCA #### [facility] ([facility]) [address] [place] [address] VIR NEUTROPHILS RELATIVE PERCENT BY AUTOMATED COUNT 62.7 % Normal [facility] Comment on above: Performed By: #### C BCA #### [facility] ([facility]) [address] [place] [address] VIR Platelet mean volume (Bld) [Entitic vol] 8.5 fL Normal 7-12 [facility] Comment on above: Performed By: #### C BCA #### [facility] ([facility]) [address] [place] [address] VIR Platelets (Bld) [#/Vol] 250 10*3/uL Normal 150-450 [facility] Comment on above: Performed By: #### C BCA #### [facility] ([facility]) [address] [place] [address] VIR RBC COUNT 4.67 X10E12/L Normal 3.8-5.2 [facility] Comment on above: Performed By: #### C BCA #### [facility] ([facility]) [address] [place] [address] VIR WBC (Bld) [#/Vol] 7.8 10*3/uL Normal 4-11 [facility] Comment on above: Performed By: #### C BCA #### [facility] ([facility]) [address] [place] [address] VIR MRSA PCR NASAL SWABon 2024 MRSA PCR NASAL SWAB Negative Normal Negative [facility] Comment on above: Performed By: #### M RSPCR #### [facility] ([facility]) [address] [place] [address] VIR PROTIME AND INRon 04-11-2025 INR 1.0 Normal 0.9-1.2 [facility] Comment on above: Performed By: #### P INR #### [facility] ([facility]) [address] [place] [address] VIR PT Coag (PPP) [Time] 11.7 s Normal 9.8-13.2 [facility] Comment on above: Performed By: #### P INR #### [facility] ([facility]) [address] [place] [address] VIR 36on 04-01-2025 36 Called patient and surgery scheduled. [facility] 36on 03-31-2025 36 Pt called stating that someone was to call her to schedule surgery. I advised pt that staff is in clinic at the moment, but will be reaching out to her to schedule. Pt verbalized understanding. [facility] Telephoneon 03-31-2025 Telephone [id number] Gricelda Salcido i 1995 F Date Provider Department Center 03/31/2025 SAUNDRA LEAHY [facility] SURG Second Fl No family history on file [facility] 29on 03-30-2025 29 Addended by: LIBBY OCONNELL on: 04/01/2025 11:06 AM Modules accepted: Orders [facility] Consulton 03-30-2025 Consult [id number] Gricelda Salcido i 1995 F Date Provider Department Center 03/30/2025 DELFINA WILSON [facility] SURG Second Fl No family history on file Level of Service:93742 [place] OFFICE/OUTPATIENT NEW MODERATE MDM 45 MINUTES Reason for Visit and Comments: Consult [484] - Patient here for a consult of a ventral hernia. [facility] HPon 03-30-2025 HP mraSubjective Patient ID: Connie [...] 36 hours). No follow-ups on file. Normal [facility] IGP,APTIMA HPV,AGE GDLNon AGE GDLN ACOG TESTING Note . [facility] Comment on above: TESTS RESULT FLAG UN ITS REF RANGE LAB Clinician Provided Cytology Information Source.............Vagina No. of containers..01 ThinPrep Vial Age Algo ACOG Ofe... 30-65 01 FLAG LEGEND: L-Low Normal,H-High Normal,LL-Alert Low,HH-Alert High <-Panic Low,>-Panic High,A-Abnormal,AA-Critical Abnormal Performed at: 01 =[address] [address] Marhta Chen MD, HPV APTIMA Negative Negative [facility] Comment on above: This nucleic acid am plification test detects fourteen high- risk HPV types (16,18,31,33,35,39,45,51,52,56,58,59,66,68) without differentiation. Performed at: =[address] [id number] Line Repairer: Martha Chen MD, Phone: [phone] Performed at: [address] [id number] Line Repairer: Martha Chen MD, Phone: [phone] IGP, APTIMA HPV, RFX 16/18,45 Note . [facility] Comment on above: TESTS RESULT FLAG UN ITS REF RANGE LAB DIAGNOSIS: 02 NEGATIVE FOR INTRAEPITHELIAL LESION OR MALIGNANCY. Specimen adequacy: 02 Satisfactory for evaluation. Performed by: Sandro Bo, Ammunition Officer ([facility]) . 02 Note: Note 02 The [...] <-Panic Low,>-Panic High,A-Abnormal,AA-Critical Abnormal Performed at: [address] [address] Martha Chen MD, [facility]ITAL[facility] [place] Patient Letter FTon 2023 Patient Letter [facility] January 06, 2024 CONNIE SALCIDO [address] [place] [address] : 1995 Dear Connie, You missed your [...] any future cancellations. Sincerely, [facility] [address], [place] [address] [facility] ED Note-Physicianon 08-20-20 ED Note-Physician [id number]# 1.00TIFF [facility] Screenson 08-20-2023 Screens [id number] .00TIFF [facility] Ambulatory Visit Summaryon 1 10-20-2022 Ambulatory Visit Summary CONNIE SALCIDO :1995 Visit Date:08/19/2023 Ambulatory Visit Instructions Your Diagnosis Kidney stones Asymptomatic microscopic hematuria Mixed incontinence [facility] (overactive bladder) Tests Performed Urnls Dip Stick Auto w/o Microscopy POC [id number] Your Care Team Attending Physician - ADÁN [...] KERA COONEY PA-C Where: [facility] Patient Educationon 08-19-20 Patient Education Obstetrics [...] health care provider. General instructions ? Take dggt-vol-cnukork and prescription medicines only as told by [...] monitor yo (more content not included)... Normal [facility] Urology Office/Clinic Noteon 08-19-2023 Urology Office/Clinic Note Chief Complaint 1yr HPI Staff PRW pt 1yr KUB *pt did not get KUB done. Was not aware one was ordered. However did get CT done @ [facility] 08/14/23 DX: Microscopic Hematuria, Hx of Kidney Stones, Nocturia, Stress Incontinence & Frequency Last Stone Procedure 01/25/21 ([facility]) Denies flank pain. Has been lower abdominal discomfort for the past week. Did go to [facility] 08/14/23. frequency during the day, [...] that she is aware of. Seen at [facility] for RLQ abdominal discomfort 08/14/23 [...] day(s), # 90 tab(s), Refills(s) 0, Pharmacy: [facility], 154, cm, 08/19/23 15:05:00 EST, Height/Length Dosing, 129.5, kg, 08/19/23 15:05:00 EST, Weight Dosing Follow-up No qualifying data available Patient Education Kidney Stones, Mfre-nz-Gpty Hematuria, Adult Overactive Bladder, Adult Problem List/Past [...] Oral, Daily Allergies Dilaudid (Nausea and vomiting) [place] (Nausea and vomiting) Social History Alcohol - Denies Alcohol Use, 01/19/2021 Substance Abuse Tobacco Never (less than 100 in lifetime) Tobacco Use:. Never Smokeless Tobacco Use:. Household tobacco concerns: No. Yes, 08/19/2023 Family History Heart disease: Mother. Kidney stone: Mother. Migraine: Mother. Immunizations Vaccine Date Status influenza virus vaccine, inactivated 06/18/2022 Recorded SARS-CoV-2 (COVID-19) [id number] 06/18/2022 Recorded SARSCoV2 mRNA(fwgflnfzk-ckrj-m ucros) vac 12/03/2021 Recorded SARSCoV2 mRNA(grbblgivd-jayl-j ucros) vac 10/25/2021 R (more content not included)... Normal [facility] Comment on above: Result Comment: Elec tronically Signed By: ADÁN Coello APRN, [place] X\.br\Date and Time Signed: 08/19/23 16:30 EST PAP ACOG PANEL 2: 19 to 29on 12-24-2022 . . Normal [facility] Comment on above: Performed By: #### L ACT #### [facility] [address] [address] [address] Tho Hardy Age Gdln ACOG Testing 19- [facility] Comment on above: Performed By: #### L ACT #### [facility] [address], [place] [address] Dr. Tho Hardy DIAGNOSIS: Comment [facility] Comment on above: Result Comment: NEGA TIVE FOR INTRAEPITHELIAL LESION OR MALIGNANCY. Performed By: #### L ACT #### [facility] [address] [address] [address] Tho Hardy Methodology: Comment Normal [facility] Comment on above: Result Comment: This liquid based ThinPrep(R) pap test was screened with the use of an image guided system. Performed By: #### L ACT #### [facility] [address] [address] [address] Tho Hardy Note: Comment Normal [facility] Comment on above: Result Comment: The Pap smear is a screening test designed to aid in the detection of premalignant and malignant conditions of the uterine cervix. It is not a diagnostic procedure and should not be used as the sole means of detecting cervical cancer. Both false-positive and false-negative reports do occur. . Performed By: #### L ACT #### [facility] [address] [place] [address] Dr. Tho Hardy Performed by: Comment Normal [facility] Comment on above: Result Comment: Julieta Choudhary, Ammunition Officer (ASCP) Performed By: #### L ACT #### [facility] [address] [place] [address] Dr. Tho Hardy Reflex Criteria: Comment Normal [facility] Comment on above: Result Comment: The HPV DNA reflex criteria were not met with this specimen result therefore, no HPV testing was performed. . Performed By: #### L ACT #### [facility] [address] [place] [address] Dr. Tho Hardy Specimen adequacy: Comment Normal [facility] Comment on above: Result Comment: Sati sfactory for evaluation. Endocervical and/or squamous metaplastic cells (endocervical component) are present. Performed By: #### L ACT #### [facility] [address] [address] [address] Tho Hardy XR RIBS LT PA [...] AYAD MALCOLM Date: 2022-11-14 07:04 Normal [facility] XR ANKLE LT MIN 3 Von 2022 XR ANKLE LT MIN 3 V EXAM: XR ANKLE LT PA N 3 V HISTORY: Pain of left [...] DUNNE Date: 2022 15:34 Normal [facility] CBC AUTO DIFFon 10-14-2022 BASO # 0.0 103/ul Normal 0.0-0.[address] [facility] Comment on above: Performed By: #### C BC #### [facility] [address] [place] [address] Dr. Tho Hardy Basophils/100 WBC (Bld) 0.3 % Normal 0.2-2.[address] [facility] Comment on above: Performed By: #### C BC #### [facility] [address] [address] [address] Tho Hardy EO # 0.1 103/ul Normal 0.0-0.7 [facility] Comment on above: Performed By: #### C BC #### [facility] [address] [address] [address] Tho Hardy Eosinophils/100 WBC (Bld) 1.5 % Normal 0.9-7.0 [facility] Comment on above: Performed By: #### C BC #### [facility] [address] [place] [address] Dr. Tho Hardy Erythrocyte distribution width (RBC) [Ratio] 12.7 % Normal 11.0-15.0 [facility] Comment on above: Performed By: #### C BC #### [facility] [address] [place] [address] Dr. Tho Hardy Hematocrit (Bld) [Volume fraction] 44.9 % Normal 36.0-48.0 [facility] Comment on above: Performed By: #### C BC #### [facility] [address] [place] [address] Dr. Tho Hardy Hemoglobin (Bld) [Mass/Vol] 14.3 g/dL Normal 12.0-16.0 [facility] Comment on above: Performed By: #### C BC #### [facility] [address] [place] [address] Dr. Tho Hardy IG # 0.02 10e3/ul Normal 0.00-0.03 [facility] Comment on above: Performed By: #### C BC #### [facility] [address] [place] [address] Dr. Tho Hardy IG % 0.3 % Normal 0.0-0.5 [facility] Comment on above: Performed By: #### C BC #### [facility] [address] [place] [address] Dr. Tho Hardy LYMPH # 1.9 103/ul Normal 1.2-3.[address] [facility] Comment on above: Performed By: #### C BC #### [facility] [address] [place] [address] Dr. Tho Hardy Lymphocytes/100 WBC (Bld) 27.7 % Normal 20.5-60.0 [facility] Comment on above: Performed By: #### C BC #### [facility] [address] [place] [address] Dr. Tho Hardy MANUAL DIFF REQ NO Normal [facility] Comment on above: Performed By: #### C BC #### [facility] [address] [place] [address] Dr. Tho Hardy MCH (RBC) [Entitic mass] 30.3 pg Normal 26.7-34.[address] [facility] Comment on above: Performed By: #### C BC #### [facility] [address] [place] [address] Dr. Tho Hardy MCHC (RBC) [Mass/Vol] 31.8 g/dL Normal 29.9-35.[address] [facility] Comment on above: Performed By: #### C BC #### [facility] [address] [place] [address] Dr. Tho Hardy MCV (RBC) [Entitic vol] 95.1 fL Normal 81.0-99.0 [facility] Comment on above: Performed By: #### C BC #### [facility] [address] [place] [address] Dr. Tho Hardy MONO # 0.5 103/ul Normal 0.3-0.8 [facility] Comment on above: Performed By: #### C BC #### [facility] [address] [place] [address] Dr. Tho Hardy Monocytes/100 WBC (Bld) 7.6 % Normal 1.7-12.0 [facility] Comment on above: Performed By: #### C BC #### [facility] [address] [place] [address] Dr. Tho Hardy NEUT # 4.2 103/ul Normal 1.4-6.[address] [facility] Comment on above: Performed By: #### C BC #### [facility] [address] [place] [address] Dr. Tho Hardy Neutrophils/100 WBC (Bld) 62.6 % Normal 43.0-75.[address] [facility] Comment on above: Performed By: #### C BC #### [facility] [address] [place] [address] Dr. Tho Hardy Platelet mean volume (Bld) [Entitic vol] 10.0 fL Normal 9.5-13.[address] [facility] Comment on above: Performed By: #### C BC #### [facility] [address] [place] [address] Dr. Tho Hardy PLT 242 103/ul Normal 150-450 [facility] Comment on above: Performed By: #### C BC #### [facility] [address] [place] [address] Dr. Tho Hardy RBC 4.72 106/ul Normal 4.20-5.40 [facility] Comment on above: Performed By: #### C BC #### [facility] [address] [place] [address] Dr. Tho Hardy WBC 6.7 103/ul Normal 4.0-11.0 [facility] Comment on above: Performed By: #### C BC #### [facility] [address] [place] [address] Dr. Tho Hardy ER URINE PROFILEon 3 Bilirubin Ql (U) Negative Normal NEGATIVE [facility] Comment on above: Performed By: #### L ACT #### [facility] [address] [place] [address] Dr. Tho Hardy Clarity (U) CLEAR Normal CLEAR [facility] Comment on above: Performed By: #### L ACT #### [facility] [address] [place] [address] Dr. Tho Hardy Color (U) YELLOW Normal YELLOW [facility] Comment on above: Performed By: #### L ACT #### [facility] [address] [place] [address] Dr. Tho RIVERA A micrscopic examination will be performed if indicated. Normal [facility] Comment on above: Performed By: #### L ACT #### [facility] [address] [place] [address] Dr. Tho Hardy Glucose Ql (U) Negative Normal NEGATIVE [facility] Comment on above: Performed By: #### L ACT #### [facility] [address] [place] [address] Dr. Tho Hardy Hemoglobin Ql (U) MODERATE Abnormal NEGATIVE [facility] Comment on above: Performed By: #### L ACT #### [facility] [address] [place] [address] Dr. Tho Hardy Ketones Ql (U) Negative Normal NEGATIVE [facility] Comment on above: Performed By: #### L ACT #### [facility] [address] [place] [address] Dr. Tho Hardy LEUKOCYTES Negative Normal NEGATIVE [facility] Comment on above: Performed By: #### L ACT #### [facility] [address] [place] [address] Dr. Tho Hardy Nitrite Ql (U) Negative Normal NEGATIVE [facility] Comment on above: Performed By: #### L ACT #### [facility] [address] [place] [address] Dr. Tho Hardy pH (U) 5.5 [pH] Normal 5-9 [facility] Comment on above: Performed By: #### L ACT #### [facility] [address] [place] [address] Dr. Tho Hardy SPEC GRAVITY >=1.030 Abnormal 1.005-<=1.025 [facility] Comment on above: Performed By: #### L ACT #### [facility] [address] [place] [address] Dr. Tho Hardy UA PROTEIN Negative Normal NEGATIVE/ TRACE [facility] Comment on above: Performed By: #### L ACT #### [facility] [address] [place] [address] Dr. Tho Hardy UR MICRO IND INDICATED Normal [facility] Comment on above: Performed By: #### L ACT #### [facility] [address] [place] [address] Dr. Tho Hardy Urobilinogen Qn (U) 0.2 {Roland'U}/dL Normal 0.2 - 1. 0 [facility] Comment on above: Performed By: #### L ACT #### [facility] [address] [place] [address] Dr. Tho Hardy URon 10-14-2022 , QUAL Negative Normal NEGATIVE [facility] Comment on above: Performed By: #### L ACT #### [facility] [address] [address] [address] Tho Hardy PROF CHEM 8 (BAS METB)on Anion gap [Moles/Vol] 12.8 mmol/L Normal [facility] Comment on above: Performed By: #### B MP #### [facility] [address] [address] [address] Tho Hardy Calcium [Mass/Vol] 8.7 mg/dL Normal 8.5-10.1 [facility] Comment on above: Performed By: #### B MP #### [facility] [address] [address] [address] Tho Hardy Chloride [Moles/Vol] 104 mmol/L Normal 98-107 [facility] Comment on above: Performed By: #### B MP #### [facility] [address] [place] [address] Dr. Tho Hardy CO2 [Moles/Vol] 28.4 mmol/L Normal 21.0-32.0 [facility] Comment on above: Performed By: #### B MP #### [facility] [address] [place] [address] Dr. Tho Hardy Creatinine [Mass/Vol] 0.65 mg/dL Normal 0.55-1.02 [facility] Comment on above: Performed By: #### B MP #### [facility] [address] [place] [address] Dr. Tho Hardy EGFR-AF CROATIAN >60 Normal >=60 [facility] Comment on above: Performed By: #### B MP #### [facility] [address] [place] [address] Dr. Tho Hardy EGFR-NON AF CROATIAN >60 Normal >=[address] [facility] Comment on above: Performed By: #### B MP #### [facility] [address] [place] [address] Dr. Tho Hardy Glucose [Mass/Vol] 86 mg/dL Normal 74-106 [facility] Comment on above: Performed By: #### B MP #### [facility] [address] [place] [address] Dr. Tho Hardy Potassium [Moles/Vol] 3.2 mmol/L Critically low 3.5-5.1 [facility] Comment on above: Performed By: #### B MP #### [facility] [address] [place] [address] Dr. Tho Hardy Sodium [Moles/Vol] 142 mmol/L Normal 136-145 [facility] Comment on above: Performed By: #### B MP #### [facility] [address] [place] [address] Dr. Tho Hardy Urea nitrogen [Mass/Vol] 11.0 mg/dL Normal 7.0-18.0 [facility] Comment on above: Performed By: #### B MP #### [facility] [address] [place] [address] Dr. Tho Hardy Urea nitrogen/Creatinine [Mass ratio] 16.9 mg/mg Normal [facility] Comment on above: Performed By: #### B MP #### [facility] [address] [place] [address] Dr. Tho Hardy URINE MICROSCOPIC ONLYon BACTERIA TRACE Abnormal NONE SEEN [facility] Comment on above: Performed By: #### L ACT #### [facility] [address] [place] [address] Dr. Tho aHrdy Bacteria identified Cx Nom (U) NOT INDICATED Normal [facility] Comment on above: Performed By: #### L ACT #### [facility] [address] [place] [address] Dr. Tho Hardy CAST NONE SEEN Normal NONE SEEN [facility] Comment on above: Performed By: #### L ACT #### [facility] [address] [place] [address] Dr. Tho Hardy Crystals LM Nom (Urine sed) NONE SEEN Normal NONE SEEN [facility] Comment on above: Performed By: #### L ACT #### [facility] [address] [place] [address] Dr. Tho Hardy Epithelial cells LM Ql (Urine sed) FEW Abnormal NONE SEEN /RARE [facility] Comment on above: Performed By: #### L ACT #### [facility] [address] [place] [address] Dr. Tho Hardy MUCOUS NONE SEEN Normal NONE SEEN [facility] Comment on above: Performed By: #### L ACT #### [facility] [address] [place] [address] Dr. Tho Hardy RBC 0-2 Normal 0-[address] [facility] Comment on above: Performed By: #### L ACT #### [facility] [address] [place] [address] Dr. Tho Hardy WBC NONE SEEN Normal NONE SEEN [facility] Comment on above: Performed By: #### L ACT #### [facility] [address] [place] [address] Dr. Tho Hardy CBC AUTO DIFFon 09-26-2022 BASO # 0.0 103/ul Normal 0.0-0.1 [facility] Comment on above: Performed By: #### L ACT #### [facility] [address] [place] [address] Dr. Tho Hardy Basophils/100 WBC (Bld) 0.1 % Critically low 0.2-2.0 [facility] Comment on above: Performed By: #### L ACT #### [facility] [address] [place] [address] Dr. Tho Hardy EO # 0.2 103/ul Normal 0.0-0.[address] [facility] Comment on above: Performed By: #### L ACT #### [facility] [address] [place] [address] Dr. Tho Hardy Eosinophils/100 WBC (Bld) 2.3 % Normal 0.9-7.[address] [facility] Comment on above: Performed By: #### L ACT #### [facility] [address] [place] [address] Dr. Tho Hardy Erythrocyte distribution width (RBC) [Ratio] 12.7 % Normal 11.0-15.0 [facility] Comment on above: Performed By: #### L ACT #### [facility] [address] [place] [address] Dr. Tho Hardy Hematocrit (Bld) [Volume fraction] 43.4 % Normal 36.0-48.0 [facility] Comment on above: Performed By: #### L ACT #### [facility] [address] [place] [address] Dr. Tho Hardy Hemoglobin (Bld) [Mass/Vol] 14.6 g/dL Normal 12.0-16.0 [facility] Comment on above: Performed By: #### L ACT #### [facility] [address] [place] [address] Dr. Toh Hardy IG # 0.02 10e3/ul Normal 0.00-0.03 [facility] Comment on above: Performed By: #### L ACT #### [facility] [address] [place] [address] Dr. Tho Hardy IG % 0.2 % Normal 0.0-0.5 [facility] Comment on above: Performed By: #### L ACT #### [facility] [address] [place] [address] Dr. Tho Hardy LYMPH # 1.8 103/ul Normal 1.2-3.8 [facility] Comment on above: Performed By: #### L ACT #### [facility] [address] [place] [address] Dr. Tho Hardy Lymphocytes/100 WBC (Bld) 20.5 % Normal 20.5-60.0 [facility] Comment on above: Performed By: #### L ACT #### [facility] [address] [place] [address] Dr. Tho Hardy MANUAL DIFF REQ NO Normal [facility] Comment on above: Performed By: #### L ACT #### [facility] [address] [place] [address] Dr. Tho Hardy MCH (RBC) [Entitic mass] 30.4 pg Normal 26.7-34.0 [facility] Comment on above: Performed By: #### L ACT #### [facility] [address] [place] [address] Dr. Tho Hardy MCHC (RBC) [Mass/Vol] 33.6 g/dL Normal 29.9-35.2 [facility] Comment on above: Performed By: #### L ACT #### [facility] [address] [address] [address] Tho Hardy MCV (RBC) [Entitic vol] 90.4 fL Normal 81.0-99.0 [facility] Comment on above: Performed By: #### L ACT #### [facility] [address] [address] [address] Tho Hardy MONO # 0.5 103/ul Normal 0.3-0.8 [facility] Comment on above: Performed By: #### L ACT #### [facility] [address] [address] [address] Tho Hardy Monocytes/100 WBC (Bld) 5.5 % Normal 1.7-12.0 [facility] Comment on above: Performed By: #### L ACT #### [facility] [address] [address] [address] Tho Hardy NEUT # 6.2 103/ul Normal 1.4-6.5 [facility] Comment on above: Performed By: #### L ACT #### [facility] [address] [address] [address] Tho Hardy Neutrophils/100 WBC (Bld) 71.4 % Normal 43.0-75.0 [facility] Comment on above: Performed By: #### L ACT #### [facility] [address] [address] [address] Tho Hardy Platelet mean volume (Bld) [Entitic vol] 9.5 fL Normal 9.5-13.5 [facility] Comment on above: Performed By: #### L ACT #### [facility] [address] [address] [address] Tho Hardy PLT 234 103/ul Normal 150-[address] [facility] Comment on above: Performed By: #### L ACT #### [facility] [address] [address] [address] Tho Hardy RBC 4.80 106/ul Normal 4.20-5.[address] [facility] Comment on above: Performed By: #### L ACT #### [facility] [facility] [address] [address] [address] Tho Hardy WBC 8.7 103/ul Normal 4.0-11.0 [facility] Comment on above: Performed By: #### L ACT #### [facility] [address] [address] [address] Tho Hardy ER URINE PROFILEon 3 Bilirubin Ql (U) Negative Normal NEGATIVE [facility] Comment on above: Performed By: #### P REGU, ERUR, UMICRO #### [facility] [address] [address] [address] Tho Hardy Clarity (U) CLEAR Normal CLEAR [facility] Comment on above: Performed By: #### P REGU, ERUR, UMICRO #### [facility] [address] [place] [address] Dr. Tho Hardy Color (U) YELLOW Normal YELLOW [facility] Comment on above: Performed By: #### P REGU, ERUR, UMICRO #### [facility] [address] [address] [address] Tho RIVERA A micrscopic examination will be performed if indicated. Normal The [facility] Comment on above: Performed By: #### P REGU, ERUR, UMICRO #### [facility] [address] [address] [address] Tho Hardy Glucose Ql (U) Negative Normal NEGATIVE The [facility] Comment on above: Performed By: #### P REGU, ERUR, UMICRO #### [facility] [address] [address] [address] Tho Hardy Hemoglobin Ql (U) SMALL Abnormal NEGATIVE The [facility] Comment on above: Performed By: #### P REGU, ERUR, UMICRO #### [facility] [address] [address] [address] Tho Hardy Ketones Ql (U) Negative Normal NEGATIVE [facility] Comment on above: Performed By: #### P REGU, ERUR, UMICRO #### [facility] [address] [address] [address] Tho Hardy LEUKOCYTES Negative Normal NEGATIVE [facility] Comment on above: Performed By: #### P REGUKRISTIANR, UMICRO #### [facility] [address] [address] [address] Tho Hardy Nitrite Ql (U) Negative Normal NEGATIVE [facility] Comment on above: Performed By: #### P REGU ERUR UMICRO #### [facility] [address] [address] [address] Tho Hardy pH (U) 5.5 [pH] Normal 5-9 [facility] Comment on above: Performed By: #### P REGKRISTIAN KramerR UMICRO #### [facility] [address] [place] [address] Dr. Tho Hardy SPEC GRAVITY >=1.030 Abnormal 1.005-<=1.025 [facility] Comment on above: Performed By: #### P REGU ERUR UMICRO #### [facility] [address] [address] [address] Tho Hardy UA PROTEIN TRACE Normal NEGATIVE/ TRACE The [facility] Comment on above: Performed By: #### P REGKRISTIAN KramerR UMICRO #### [facility] [address] [place] [address] Dr. Tho Hardy UR MICRO IND INDICATED Normal [facility] Comment on above: Performed By: #### P REGUKRISTIANR UMICRO #### [facility] [address] [address] [address] Tho Hardy Urobilinogen Qn (U) 0.2 {Roland'U}/dL Normal 0.2 - 1. 0 [facility] Comment on above: Performed By: #### P REGU ERUR, UMICRO #### [facility] [address] [place] [address] Dr. Tho Hardy GI PANEL (PCR)on 09-26-2022 Adenovirus F 40/41 Not detected Normal NOT DETECTED Th [facility] Comment on above: Performed By: #### G IPANEL #### [facility] [address] [address] [address] Tho Hardy Astrovirus Not detected Normal NOT DETECTED [facility] Comment on above: Performed By: #### G IPANEL #### [facility] [address] [place] [address] Dr. Tho Hardy C. Diff toxin A/B Not detected Normal NOT DETECTED The [facility] Comment on above: Performed By: #### G IPANEL #### [facility] [address] [address] [address] Tho Hardy Campylobacter Not detected Normal NOT DETECTED The [facility] Comment on above: Performed By: #### G IPANEL #### [facility] [address] [place] [address] Dr. Tho Hardy Cryptosporidium Not detected Normal NOT DETECTED The [facility] Comment on above: Performed By: #### G IPANEL #### [facility] [address] [place] [address] Dr. Tho Hardy Cyclos. Cayetanensis Not detected Normal NOT DETECTED The [facility] Comment on above: Performed By: #### G IPANEL #### [facility] [address] [place] [address] Dr. Tho Hardy E. Coli O157 Not Applicable Normal Not Applicable The [facility] Comment on above: Performed By: #### G IPANEL #### [facility] [address] [place] [address] Dr. Tho Hardy E. histolytica Not detected Normal NOT DETECTED The [facility] Comment on above: Performed By: #### G IPANEL #### [facility] [address] [place] [address] Dr. Tho Hardy EAEC Not detected Normal NOT DETECTED [facility] Comment on above: Performed By: #### G IPANEL #### [facility] [address] [place] [address] Dr. Tho Hardy EIEC Not detected Normal NOT DETECTED [facility] Comment on above: Performed By: #### G IPANEL #### [facility] [address] [place] [address] Dr. Tho Hardy EPEC Not detected Normal NOT DETECTED [facility] Comment on above: Performed By: #### G IPANEL #### [facility] [address] [address] [address] Tho Hardy ETEC Not detected Normal NOT DETECTED [facility] Comment on above: Performed By: #### G IPANEL #### [facility] [address] [address] [address] Tho Scott Lamblia Not detected Normal NOT DETECTED [facility] Comment on above: Performed By: #### G IPANEL #### [facility] [address] [address] [address] Tho ALBRIGHT CONTROLS PASSED Normal The [facility] Comment on above: Performed By: #### G IPANEL #### [facility] [address] [place] [address] Dr. Tho CESPEDES HEADER GI PANEL BACTERIA Normal T [facility] Comment on above: Performed By: #### G IPANEL #### [facility] [address] [place] [address] Dr. Tho MCCONNELL ECOLI GI PANEL DIARRHEAGENIC E.COLI / SHIGELLA Normal [facility] Comment on above: Performed By: #### G IPANEL #### [facility] [address] [place] [address] Dr. Tho MCCONNELL INFO SEE BELOW Normal [facility] Comment on above: Result Comment: EAEC - Enteroaggregative E. Coli EPEC- Enteropathogenic E. Coli ETEC- Enterotoxigenic E. Coli lt/st STEC- Shigella-like toxin-producing E. Coli stx1/stx2 EIEC- Shigella/Enteroinvasive E. Coli Performed By: #### G IPANEL #### [facility] [address] [place] [address] Dr. Tho MCCONNELL PARASITES GI PANEL PARASITES Normal [facility] Comment on above: Performed By: #### G IPANEL #### [facility] [address] [address] [address] Tho MCCONNELL VIRUS GI PANEL VIRUSES Normal [facility] Comment on above: Performed By: #### G IPANEL #### [facility] [address] [address] [address] Tho Hardy Norovirus GI/GII Not detected Normal NOT DETECTED The [facility] Comment on above: Performed By: #### G IPANEL #### [facility] [address] [address] [address] Tho Hardy P. Shigelloides Not detected Normal NOT DETECTED The [facility] Comment on above: Performed By: #### G IPANEL #### [facility] [address] [address] [address] Tho Hardy Rotavirus A Not detected Normal NOT DETECTED The [facility] Comment on above: Performed By: #### G IPANEL #### [facility] [address] [place] [address] Dr. Tho Hardy Salmonella Not detected Normal NOT DETECTED [facility] Comment on above: Performed By: #### G IPANEL #### [facility] [address] [place] [address] Dr. Tho Hardy Sapovirus Not detected Normal NOT DETECTED [facility] Comment on above: Performed By: #### G IPANEL #### [facility] [address] [place] [address] Dr. Tho Hardy STEC Not detected Normal NOT DETECTED [facility] Comment on above: Performed By: #### G IPANEL #### [facility] [address] [place] [address] Dr. Tho Hardy Vibrio Not detected Normal NOT DETECTED [facility] Comment on above: Performed By: #### G IPANEL #### [facility] [address] [place] [address] Dr. Tho Hardy Vibrio Cholera Not detected Normal NOT DETECTED The [facility] Comment on above: Performed By: #### G IPANEL #### [facility] [address] [place] [address] Dr. Tho Hardy Y. Enterocolitica Not detected Normal NOT DETECTED The [facility] Comment on above: Performed By: #### G IPANEL #### [facility] [address] [address] [address] Tho Hardy URon 09-26-2022 , QUAL Negative Normal NEGATIVE [facility] Comment on above: Performed By: #### P REGUKRISTIANRLLOYD #### [facility] [address] [address] [address] Tho Hardy PROF CHEM 8 (BAS METB)on Anion gap [Moles/Vol] 15.6 mmol/L Normal [facility] Comment on above: Performed By: #### B MP #### [facility] [address] [address] [address] Tho Hardy Calcium [Mass/Vol] 9.0 mg/dL Normal 8.5-10.1 [facility] Comment on above: Performed By: #### B MP #### [facility] [address] [address] [address] Tho Hardy Chloride [Moles/Vol] 104 mmol/L Normal 98-107 [facility] Comment on above: Performed By: #### B MP #### [facility] [address] [address] [address] Tho Hardy CO2 [Moles/Vol] 24.0 mmol/L Normal 21.0-32.0 [facility] Comment on above: Performed By: #### B MP #### [facility] [address] [address] [address] Tho Hardy Creatinine [Mass/Vol] 0.73 mg/dL Normal 0.55-1.02 [facility] Comment on above: Performed By: #### B MP #### [facility] [address] [address] [address] Tho Hardy EGFR-AF CROATIAN >60 Normal >=60 The [facility] Comment on above: Performed By: #### B MP #### [facility] [address] [address] [address] Tho Hardy EGFR-NON AF CROATIAN >60 Normal >=60 [facility] Comment on above: Performed By: #### B MP #### [facility] [address] [address] [address] Tho Hardy Glucose [Mass/Vol] 85 mg/dL Normal 74-106 [facility] Comment on above: Performed By: #### B MP #### [facility] [address] [place] [address] Dr. Tho Hardy Potassium [Moles/Vol] 3.6 mmol/L Normal 3.5-5.1 [facility] Comment on above: Performed By: #### B MP #### [facility] [address] [address] [address] Tho Hardy Sodium [Moles/Vol] 140 mmol/L Normal 136-145 [facility] Comment on above: Performed By: #### B MP #### [facility] [address] [place] [address] Dr. Tho Hardy Urea nitrogen [Mass/Vol] 12.0 mg/dL Normal 7.0-18.0 [facility] Comment on above: Performed By: #### B MP #### [facility] [address] [place] [address] Dr. Tho Hardy Urea nitrogen/Creatinine [Mass ratio] 16.4 mg/mg Normal [facility] Comment on above: Performed By: #### B MP #### [facility] [address] [place] [address] Dr. Tho Hardy URINE MICROSCOPIC ONLYon BACTERIA TRACE Abnormal NONE SEEN [facility] Comment on above: Performed By: #### P REGU ERUR, UMICRO #### [facility] [address] [place] [address] Dr. Tho Hardy Bacteria identified Cx Nom (U) NOT INDICATED Normal [facility] Comment on above: Performed By: #### P REGU ERUR, UMICRO #### [facility] [address] [place] [address] Dr. Tho Hardy CAST NONE SEEN Normal NONE SEEN The [facility] Comment on above: Performed By: #### P REGU, ERUR, UMICRO #### [facility] [address] [place] [address] Dr. Tho Hardy Crystals LM Nom (Urine sed) NONE SEEN Normal NONE SEEN The [facility] Comment on above: Performed By: #### P REGU, ERUR, UMICRO #### [facility] [address] [place] [address] Dr. Tho Hardy Epithelial cells LM Ql (Urine sed) MANY Abnormal NONE SEEN /RARE The [facility] Comment on above: Performed By: #### P REGU, ERUR, UMICRO #### [facility] [address] [place] [address] Dr. Tho Hardy MUCOUS NONE SEEN Normal NONE SEEN The [facility] Comment on above: Performed By: #### P REGU, ERUR, UMICRO #### [facility] [address] [place] [address] Dr. Tho Hardy RBC 2-5 Abnormal 0-2 [facility] Comment on above: Performed By: #### P REGU, ERUR, UMICRO #### [facility] [address] [place] [address] Dr. Tho Hardy WBC NONE SEEN Normal NONE SEEN The [facility] Comment on above: Performed By: #### P REGU, ERUR, UMICRO #### [facility] [address] [place] [address] Dr. Tho Hardy AMYLASEon 08-04-2022 Amylase [Catalytic activity/Vol] 27 U/L Normal 25-[address] [facility] Comment on above: Performed By: #### P REGU, ERUR, UMICRO #### [facility] [address] [place] [address] Dr. Tho Hardy CARDIAC JEAN 3-6on 2 CK [Catalytic activity/Vol] 53 U/L Normal 26-[address] [facility] Comment on above: Performed By: #### C MREP #### [facility] [address] [place] [address] Dr. Tho Hardy CK.MB [Mass/Vol] 0.79 ng/mL Normal <=3.60 The [facility] Comment on above: Performed By: #### C MREP #### [facility] [address] [place], [place] [id number] Dr. Tho Hardy HSTROP 4.6 pg/mL Normal 4.0-51.[address] [facility] Comment on above: Result Comment: CUT- OFF POINTS HAVE BEEN ESTABLISHED BASED ON THE FOURTH UNIVERSAL DEFINITIONS OF MYOCARDIAL INFARCTION. THE UPPER REFERENCE LIMIT (URL) OF TROPONIN, DEFINED THE 99TH PERCENTILE OF cTnI DISTRIBUTION IN A REFERENCE POPULATION, HAS BEEN CONFIRMED THE DECISION THRESHOLD FOR PA DIAGNOSIS. Performed By: #### C MREP #### [facility] [address] [place] [address] Dr. Tho Hardy CARDIAC JEAN ADMITon 022 CK [Catalytic activity/Vol] 68 U/L Normal 26-[address] [facility] Comment on above: Performed By: #### P RICHARDSON MCNEIL UMICRO #### [facility] [address] [place] [address] Dr. Tho Hardy CK.MB [Mass/Vol] 1.11 ng/mL Normal <=3.60 The [facility] Comment on above: Performed By: #### P RICHARDSON MCNEIL UMICRO #### [facility] [address] [place] [address] Dr. Tho Hardy HSTROP 4.3 pg/mL Normal 4.0-51.[address] [facility] Comment on above: Result Comment: CUT- OFF POINTS HAVE BEEN ESTABLISHED BASED ON THE FOURTH UNIVERSAL DEFINITIONS OF MYOCARDIAL INFARCTION. THE UPPER REFERENCE LIMIT (URL) OF TROPONIN, DEFINED THE 99TH PERCENTILE OF cTnI DISTRIBUTION IN A REFERENCE POPULATION, HAS BEEN CONFIRMED THE DECISION THRESHOLD FOR PA DIAGNOSIS. Performed By: #### P REGUKRISTIANR UMICRO #### [facility] [address] [place] [address] Dr. Tho Hardy KINDRA 29 ng/mL Normal 9-[address] [facility] Comment on above: Performed By: #### P REGRICHARDSON Kramer UMICRO #### [facility] [address] [place] [address] Dr. Tho Hardy CBC AUTO DIFFon 08-04-2022 BASO # 0.0 103/ul Normal 0.0-0.[address] [facility] Comment on above: Performed By: #### P REGU, ERUR, UMICRO #### [facility] [address] [place] [address] Dr. Tho Hardy Basophils/100 WBC (Bld) 0.4 % Normal 0.2-2.0 [facility] Comment on above: Performed By: #### P REGU, ERUR, UMICRO #### [facility] [address] [place] [address] Dr. Tho Hardy EO # 0.2 103/ul Normal 0.0-0.7 [facility] Comment on above: Performed By: #### P REGU, ERUR, UMICRO #### [facility] [address] [place] [address] Dr. Tho Hardy Eosinophils/100 WBC (Bld) 1.7 % Normal 0.9-7.0 [facility] Comment on above: Performed By: #### P REGU ERUR UMICRO #### [facility] [address] [place] [address] Dr. Tho Hardy Erythrocyte distribution width (RBC) [Ratio] 12.9 % Normal 11.0-15.0 [facility] Comment on above: Performed By: #### P REGU ERUR, UMICRO #### [facility] [address] [place] [address] Dr. Tho Hardy Hematocrit (Bld) [Volume fraction] 43.2 % Normal 36.0-48.0 [facility] Comment on above: Performed By: #### P REGU ERUR UMICRO #### [facility] [address] [place] [address] Dr. Tho Hardy Hemoglobin (Bld) [Mass/Vol] 14.4 g/dL Normal 12.0-16.[address] [facility] Comment on above: Performed By: #### P REGU, ERUR, UMICRO #### [facility] [address] [place] [address] Dr. Tho Hardy IG # 0.05 10e3/ul Critically high 0.00-0.03 [facility] Comment on above: Performed By: #### P REGU, ERUR, UMICRO #### [facility] [address] [place] [address] Dr. Tho Hardy IG % 0.4 % Normal 0.0-0.5 [facility] Comment on above: Performed By: #### P REGU, ERUR, UMICRO #### [facility] [address] [place] [address] Dr. Tho Hardy LYMPH # 2.4 103/ul Normal 1.2-3.[address] [facility] Comment on above: Performed By: #### P REGU, ERUR, UMICRO #### [facility] [address] [place] [address] Dr. Tho Hardy Lymphocytes/100 WBC (Bld) 21.3 % Normal 20.5-60.0 [facility] Comment on above: Performed By: #### P REGU, ERUR, UMICRO #### [facility] [address] [place] [address] Dr. Tho Hardy MANUAL DIFF REQ NO Normal [facility] Comment on above: Performed By: #### P REGU, ERUR, UMICRO #### [facility] [address] [place] [address] Dr. Tho Hardy MCH (RBC) [Entitic mass] 29.9 pg Normal 26.7-34.0 [facility] Comment on above: Performed By: #### P REGU, ERUR, UMICRO #### [facility] [address] [place] [address] Dr. Tho Hardy MCHC (RBC) [Mass/Vol] 33.3 g/dL Normal 29.9-35.[address] [facility] Comment on above: Performed By: #### P REGU, ERUR, UMICRO #### [facility] [address] [place] [address] Dr. Tho Hardy MCV (RBC) [Entitic vol] 89.6 fL Normal 81.0-99.0 [facility] Comment on above: Performed By: #### P REGU, ERUR, UMICRO #### [facility] [address] [address] [address] Tho Hardy MONO # 0.6 103/ul Normal 0.3-0.[address] [facility] Comment on above: Performed By: #### P REGU, ERUR, UMICRO #### [facility] [address] [place] [address] Dr. Tho Hardy Monocytes/100 WBC (Bld) 5.5 % Normal 1.7-12.[address] [facility] Comment on above: Performed By: #### P REGU, ERUR, UMICRO #### [facility] [address] [address] [address] Tho Hardy NEUT # 8.0 103/ul Critically high 1.4-6.5 [facility] Comment on above: Performed By: #### P REGU, ERUR, UMICRO #### [facility] [address] [place] [address] Dr. Tho Hardy Neutrophils/100 WBC (Bld) 70.7 % Normal 43.0-75.0 [facility] Comment on above: Performed By: #### P REGU, ERUR, UMICRO #### [facility] [address] [address] [address] Tho Hardy Platelet mean volume (Bld) [Entitic vol] 10.7 fL Normal 9.5-13.5 [facility] Comment on above: Performed By: #### P REGU, ERUR, UMICRO #### [facility] [address] [place] [address] Dr. Tho Hardy PLT 220 103/ul Normal 150-[address] [facility] Comment on above: Performed By: #### P REGU, ERUR, UMICRO #### [facility] [address] [place] [address] Dr. Tho Hardy RBC 4.82 106/ul Normal 4.20-5.[address] [facility] Comment on above: Performed By: #### P REGU, ERUR, UMICRO #### [facility] [address] [address] [address] Tho Hardy WBC 11.3 103/ul Critically high 4.0-11.0 [facility] Comment on above: Performed By: #### P RICHARDSON MCNEIL UMICRO #### [facility] [address] ABD/PELV W CONon [...] HECTOR Date: 2022-08-04 05:28 Normal [address] [facility] LACTATE/LACTIC ACIDon 2021 Lactate [Moles/Vol] 1.0 mmol/L Normal 0.4-1.9 [facility] Comment on above: Performed By: #### L ACT #### [facility] [address], [place] [address] Dr. Tho Hardy Lactate [Moles/Vol] 1.2 mmol/L Normal 0.4-1.9 [facility] Comment on above: Performed By: #### L ACT #### [facility] [address], [place] [address] Dr. Tho Hardy LIPASEon 08-04-2022 Lipase [Catalytic activity/Vol] 72.0 U/L Critically low 73.0-393.0 [facility] Comment on above: Performed By: #### P REGU, ERUR, UMICRO #### [facility] [address] [place] [address] Dr. Tho Hardy PROF 14(COMP METB)on 022 Albumin [Mass/Vol] 3.7 g/dL Normal 3.4-5.0 [facility] Comment on above: Performed By: #### P REGU, ERUR, UMICRO #### [facility] [address] [place] [address] Dr. Tho Hardy Albumin/Globulin [Mass ratio] 0.9 {ratio} Normal [facility] Comment on above: Performed By: #### P REGU, ERUR, UMICRO #### [facility] [address] [place] [address] Dr. Tho Hardy ALP [Catalytic activity/Vol] 83 U/L Normal 46-116 [facility] Comment on above: Performed By: #### P REGU, ERUR, UMICRO #### [facility] [address] [place] [address] Dr. Tho Hardy ALT [Catalytic activity/Vol] 36 U/L Normal 14-59 [facility] Comment on above: Performed By: #### P REGU, ERUR, UMICRO #### [facility] [address] [place] [address] Dr. Tho Hardy Anion gap [Moles/Vol] 9.7 mmol/L Normal [facility] Comment on above: Performed By: #### P REGU, ERUR, UMICRO #### [facility] [address] [place] [address] Dr. Tho Hardy AST [Catalytic activity/Vol] 19 U/L Normal 15-37 [facility] Comment on above: Performed By: #### P REGU, ERUR, UMICRO #### [facility] [address] [place] [address] Dr. Tho Hardy Bilirubin [Mass/Vol] 0.3 mg/dL Normal 0.2-1.0 [facility] Comment on above: Performed By: #### P REGU, ERUR, UMICRO #### [facility] [address] [place] [address] [address] Tho Hardy Calcium [Mass/Vol] 8.9 mg/dL Normal 8.5-10.1 [facility] Comment on above: Performed By: #### P REGU, ERUR, UMICRO #### [facility] [address] [place] [address] [address] Tho Hardy Chloride [Moles/Vol] 103 mmol/L Normal 98-[address] [facility] Comment on above: Performed By: #### P REGU, ERUR, UMICRO #### [facility] [address] [place] [address] Dr. Tho Hardy CO2 [Moles/Vol] 27.8 mmol/L Normal 21.0-32.0 [facility] Comment on above: Performed By: #### P REGU, ERUR, UMICRO #### [facility] [address] [place] [address] Dr. Tho Hardy Creatinine [Mass/Vol] 0.62 mg/dL Normal 0.55-1.[address] [facility] Comment on above: Performed By: #### P REGU, ERUR, UMICRO #### [facility] [address] [place] [address] [address] Tho Hardy EGFR-AF CROATIAN >60 Normal >=60 [facility] Comment on above: Performed By: #### P REGU, ERUR, UMICRO #### [facility] [address] [place] [address] Dr. Tho Hardy EGFR-NON AF CROATIAN >60 Normal >=[address] [facility] Comment on above: Performed By: #### P REGU, ERUR, UMICRO #### [facility] [address] [place] [address] Dr. Tho Hardy Globulin (S) [Mass/Vol] 3.9 g/dL Normal [facility] Comment on above: Performed By: #### P REGU, ERUR, UMICRO #### [facility] [address] [place] [address] [address] Tho Hardy Glucose [Mass/Vol] 98 mg/dL Normal 74-106 [facility] Comment on above: Performed By: #### P REGU, ERUR, UMICRO #### [facility] [address] [address] [address] Tho Hardy Potassium [Moles/Vol] 3.5 mmol/L Normal 3.5-5.[address] [facility] Comment on above: Performed By: #### P REGU, ERUR, UMICRO #### [facility] [address] [address] [address] Tho Hardy Protein [Mass/Vol] 7.6 g/dL Normal 6.4-8.2 [facility] Comment on above: Performed By: #### P REGU, ERUR, UMICRO #### [facility] [address] [place] [address] Dr. Tho Hardy Sodium [Moles/Vol] 137 mmol/L Normal 136-145 [facility] Comment on above: Performed By: #### P REGU, ERUR, UMICRO #### [facility] [address] [place] [address] [address] Tho Hardy Urea nitrogen [Mass/Vol] 18.0 mg/dL Normal 7.0-18.[address] [facility] Comment on above: Performed By: #### P REGU, ERUR, UMICRO #### [facility] [address] [place] [address] Dr. Tho Hardy Urea nitrogen/Creatinine [Mass ratio] 29.0 mg/mg Normal [facility] Comment on above: Performed By: #### P REGU, ERUR, UMICRO #### [facility] [address] [place] [address] Dr. Tho Hardy XR CHEST 1 Von [...] by: JOLENE TIMMONS Date: 2022-08-04 02:02 Normal [facility] D-DIMERon 07-09-2022 D-DIMER 0.23 mg/L FEU Normal <=0.59 [facility] Comment on above: Performed By: #### RICHARDSON GALE UMICRO #### [facility] [address] [place] [address] [address] Tho Hardy D-DIMER COMMENTS SEE BELOW Normal [facility] Comment on above: Result Comment: Incr eases [...] #### P RICHARDSON MCNEIL UMICRO #### [facility] [address] [place] [address] [address] Tho Hardy XR HIP LT 2 [...] JOSIE KING Date: 2022-07-08 23:54 Normal [facility] US PELVIS TRANSVAGon 022 US PELVIS [...] AYAD BIGGS Date: 2022-05-01 10:25 [facility] ) CONNIE SALCIDO ([id number]) 1995 F Date Time Provider Department 04/26/22 1:30 PM CARLOS TARIQ [facility] During your visit today, we recorded the following information about you: Pulse Blood pressure Weight Height 104/minute 140/84 138.3 kg 1.524 m Last Period 04/19/22 Jess Suero MA 04/26/2022 1:37 PM Signed What is the reason for your visit today? WIPER BLENDER hernia Who is your referring physician? self [...] Carlos Tariq MD Referring Provider: NOAH WALTON [[id number]] Allergies As of Date: 04/26/2022 Noted Allergy [...] (None) Visit Notes: >> Jess Suero MA Fri Apr 26, 2022 1:35 PM Status: Signed What is the reason for your visit today? WIPER BLENDER hernia Who is your referring physician? 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 NO Have you had unintentional weight loss of 15 lbs/7 Kg in the last 3-6 months? NO Bowels: regular Wound: none Temperature: No Drains: No Encounter Status:Closed by CARLOS TARIQ on 04/26/22 Normal [facility] [address] ABD/PELV W CONon 04-12-20 CT [...] PARNELL Date: 2022-04-12 00:02 Normal [facility] CBC AUTO DIFFon 04-11-2022 BASO # 0.0 103/ul Normal 0.0-0.[address] [facility] Comment on above: Performed By: #### P REGU ERUR, UMICRO #### [facility] [address] [place] [address] [address] Tho Hardy Basophils/100 WBC (Bld) 0.2 % Normal 0.2-2.[address] [facility] Comment on above: Performed By: #### P REGU, ERUR, UMICRO #### [facility] [address] [address] [address] Tho Hardy EO # 0.1 103/ul Normal 0.0-0.[address] [facility] Comment on above: Performed By: #### P REGU, ERUR, UMICRO #### [facility] [address] [address] [address] Tho Hardy Eosinophils/100 WBC (Bld) 0.7 % Critically low 0.9-7.[address] [facility] Comment on above: Performed By: #### P REGU, ERUR, UMICRO #### [facility] [address] [address] [address] Tho Hardy Erythrocyte distribution width (RBC) [Ratio] 13.4 % Normal 11.0-15.0 [facility] Comment on above: Performed By: #### P REGU, ERUR, UMICRO #### [facility] [address] [place] [address] Dr. Tho Hardy Hematocrit (Bld) [Volume fraction] 39.9 % Normal 36.0-48.0 [facility] Comment on above: Performed By: #### P REGU, ERUR, UMICRO #### [facility] [address] [place] [address] Dr. Tho Hardy Hemoglobin (Bld) [Mass/Vol] 13.3 g/dL Normal 12.0-16.0 [facility] Comment on above: Performed By: #### P REGU, ERUR, UMICRO #### [facility] [address] [place] [address] Dr. Tho Hardy IG # 0.04 10e3/ul Critically high 0.00-0.03 [facility] Comment on above: Performed By: #### P REGU, ERUR, UMICRO #### [facility] [address] [place] [address] Dr. Tho Hardy IG % 0.4 % Normal 0.0-0.5 [facility] Comment on above: Performed By: #### P REGU, ERUR, UMICRO #### [facility] [address] [place] [address] Dr. Tho Hardy LYMPH # 2.8 103/ul Normal 1.2-3.8 [facility] Comment on above: Performed By: #### P REGU, ERUR, UMICRO #### [facility] [address] [place] [address] Dr. Tho Hardy Lymphocytes/100 WBC (Bld) 31.1 % Normal 20.5-60.0 [facility] Comment on above: Performed By: #### P REGU, ERUR, UMICRO #### [facility] [address] [place] [address] Dr. Tho Hardy MANUAL DIFF REQ NO Normal [facility] Comment on above: Performed By: #### P REGU, ERUR, UMICRO #### [facility] [address] [place] [address] Dr. Tho Hardy MCH (RBC) [Entitic mass] 29.8 pg Normal 26.7-34.[address] [facility] Comment on above: Performed By: #### P REGU, ERUR, UMICRO #### [facility] [address] [place] [address] Dr. Tho Hardy MCHC (RBC) [Mass/Vol] 33.3 g/dL Normal 29.9-35.[address] [facility] Comment on above: Performed By: #### P REGU, ERUR, UMICRO #### [facility] [address] [place] [address] Dr. Tho Hardy MCV (RBC) [Entitic vol] 89.5 fL Normal 81.0-99.[address] [facility] Comment on above: Performed By: #### P REGU, ERUR, UMICRO #### [facility] [address] [place] [address] Dr. Tho Hardy MONO # 0.7 103/ul Normal 0.3-0.[address] [facility] Comment on above: Performed By: #### P REGU, ERUR, UMICRO #### [facility] [address] [place] [address] Dr. Tho Hardy Monocytes/100 WBC (Bld) 7.3 % Normal 1.7-12.[address] [facility] Comment on above: Performed By: #### P REGU, ERUR, UMICRO #### [facility] [address] [place] [address] Dr. Tho Hardy NEUT # 5.4 103/ul Normal 1.4-6.[address] [facility] Comment on above: Performed By: #### P REGU, ERUR, UMICRO #### [facility] [address] [place] [address] Dr. Tho Hardy Neutrophils/100 WBC (Bld) 60.3 % Normal 43.0-75.[address] [facility] Comment on above: Performed By: #### P REGU, ERUR, UMICRO #### [facility] [address] [place] [address] Dr. Tho Hardy Platelet mean volume (Bld) [Entitic vol] 9.1 fL Critically low 9.5-13.5 [facility] Comment on above: Performed By: #### P REGU, ERUR, UMICRO #### [facility] [address] [place] [address] Dr. Tho Hardy PLT 249 103/ul Normal 150-[address] [facility] Comment on above: Performed By: #### P REGU, ERUR, UMICRO #### [facility] [address] [place] [address] Dr. Tho Hardy RBC 4.46 106/ul Normal 4.20-5.40 [facility] Comment on above: Performed By: #### P REGU, ERUR, UMICRO #### [facility] [address] [place] [address] Dr. Tho Hardy WBC 9.0 103/ul Normal 4.0-11.0 [facility] Comment on above: Performed By: #### P REGU, ERUR, UMICRO #### [facility] [address] [place] [address] Dr. Tho Hardy ER URINE PROFILEon 2 Bilirubin Ql (U) Negative Normal NEGATIVE [facility] Comment on above: Performed By: #### B MP #### [facility] [address] [place] [address] Dr. Tho Hardy Clarity (U) CLEAR Normal CLEAR [facility] Comment on above: Performed By: #### B MP #### [facility] [address] [place] [address] Dr. Tho Hardy Color (U) YELLOW Normal YELLOW [facility] Comment on above: Performed By: #### B MP #### [facility] [address] [place] [address] Dr. Tho RIVERA A micrscopic examination will be performed if indicated. Normal [facility] Comment on above: Performed By: #### B MP #### [facility] [address] [place] [address] [address] Tho Hardy Glucose Ql (U) Negative Normal NEGATIVE [facility] Comment on above: Performed By: #### B MP #### [facility] [address] [place] [address] [address] Tho Hardy Hemoglobin Ql (U) MODERATE Abnormal NEGATIVE [facility] Comment on above: Performed By: #### B MP #### [facility] [address] [address] [address] Tho Hardy Ketones Ql (U) Negative Normal NEGATIVE [facility] Comment on above: Performed By: #### B MP #### [facility] [address] [place] [address] Dr. Tho Hardy LEUKOCYTES Negative Normal NEGATIVE [facility] Comment on above: Performed By: #### B MP #### [facility] [address] [place] [address] Dr. Tho Hardy Nitrite Ql (U) Negative Normal NEGATIVE [facility] Comment on above: Performed By: #### B MP #### [facility] [address] [place] [address] Dr. Tho Hardy pH (U) 5.5 [pH] Normal 5-9 [facility] Comment on above: Performed By: #### B MP #### [facility] [address] [place] [address] Dr. Tho Hardy SPEC GRAVITY >=1.030 Abnormal 1.005-<=1.025 [facility] Comment on above: Performed By: #### B MP #### [facility] [address] [place] [address] Dr. Tho Hardy UA PROTEIN Negative Normal NEGATIVE/ TRACE [facility] Comment on above: Performed By: #### B MP #### [facility] [address] [place] [address] Dr. Tho Hardy UR MICRO IND INDICATED Normal [facility] Comment on above: Performed By: #### B MP #### [facility] [address] [place] [address] Dr. Tho Hardy Urobilinogen Qn (U) 0.2 {Roland'U}/dL Normal 0.2 - 1. 0 [facility] Comment on above: Performed By: #### B MP #### [facility] [address] [place] [address] Dr. Tho Hardy LIPASEon 04-11-2022 Lipase [Catalytic activity/Vol] 88.0 U/L Normal 73.0-393.0 [facility] Comment on above: Performed By: #### L ACT #### [facility] [address] [place] [address] Dr. Tho Hardy PREG HCG QUALon 04-11-2022 , QUAL Negative Normal NEGATIVE [facility] Comment on above: Performed By: #### P REG #### [facility] [address] [place] [address] Dr. Tho Hardy PROF 14(COMP METB)on 022 Albumin [Mass/Vol] 3.5 g/dL Normal 3.4-5.0 [facility] Comment on above: Performed By: #### L ACT #### [facility] [address] [place] [address] Dr. Tho Hardy Albumin/Globulin [Mass ratio] 0.9 {ratio} Normal [facility] Comment on above: Performed By: #### L ACT #### [facility] [address] [place] [address] Dr. Tho Hardy ALP [Catalytic activity/Vol] 73 U/L Normal 46-116 [facility] Comment on above: Performed By: #### L ACT #### [facility] [address] [place] [address] Dr. Tho Hardy ALT [Catalytic activity/Vol] 29 U/L Normal 14-59 [facility] Comment on above: Performed By: #### L ACT #### [facility] [address] [place] [address] Dr. Tho Hardy Anion gap [Moles/Vol] 10.4 mmol/L Normal [facility] Comment on above: Performed By: #### L ACT #### [facility] [address] [place] [address] Dr. Tho Hardy AST [Catalytic activity/Vol] 15 U/L Normal 15-37 [facility] Comment on above: Performed By: #### L ACT #### [facility] [address] [place] [address] [address] Tho Hardy Bilirubin [Mass/Vol] 0.4 mg/dL Normal 0.2-1.0 [facility] Comment on above: Performed By: #### L ACT #### [facility] [address] [address] [address] Tho Hardy Calcium [Mass/Vol] 8.4 mg/dL Critically low 8.5-10.1 [facility] Comment on above: Performed By: #### L ACT #### [facility] [address] [place] [address] Dr. Tho Hardy Chloride [Moles/Vol] 103 mmol/L Normal 98-107 [facility] Comment on above: Performed By: #### L ACT #### [facility] [address] [place] [address] Dr. Tho Hardy CO2 [Moles/Vol] 27.8 mmol/L Normal 21.0-32.0 [facility] Comment on above: Performed By: #### L ACT #### [facility] [address] [place] [address] Dr. Tho Hardy Creatinine [Mass/Vol] 0.75 mg/dL Normal 0.55-1.02 [facility] Comment on above: Performed By: #### L ACT #### [facility] [address] [address] [address] Tho Hardy EGFR-AF CROATIAN >60 Normal >=60 [facility] Comment on above: Performed By: #### L ACT #### [facility] [address] [address] [address] Tho Hardy EGFR-NON AF CROATIAN >60 Normal >=60 [facility] Comment on above: Performed By: #### L ACT #### [facility] [address] [place] [address] Dr. Tho Hardy Globulin (S) [Mass/Vol] 3.7 g/dL Normal [facility] Comment on above: Performed By: #### L ACT #### [facility] [address] [address] [address] Tho Hardy Glucose [Mass/Vol] 88 mg/dL Normal 74-106 [facility] Comment on above: Performed By: #### L ACT #### [facility] [address] [address] [address] Tho Hardy Potassium [Moles/Vol] 3.2 mmol/L Critically low 3.5-5.1 [facility] Comment on above: Performed By: #### L ACT #### [facility] [address] [address] [address] Tho Hardy Protein [Mass/Vol] 7.2 g/dL Normal 6.4-8.2 [facility] Comment on above: Performed By: #### L ACT #### [facility] [address] [address] [address] Tho Hardy Sodium [Moles/Vol] 138 mmol/L Normal 136-145 [facility] Comment on above: Performed By: #### L ACT #### [facility] [address] [address] [address] Tho Hardy Urea nitrogen [Mass/Vol] 13.0 mg/dL Normal 7.0-18.0 [facility] Comment on above: Performed By: #### L ACT #### [facility] [address] [address] [address] Tho Hardy Urea nitrogen/Creatinine [Mass ratio] 17.3 mg/mg Normal [facility] Comment on above: Performed By: #### L ACT #### [facility] [address] [address] [address] Tho Hardy PROTIMEon 04-11-2022 INR Coag (PPP) [Relative time] 0.97 {INR} Normal [facility] Comment on above: Performed By: #### P REGU, KRISTIANRJUANRO #### [facility] [address] [address] [address] Tho Hardy INR GUIDELINES SEE BELOW Normal [facility] Comment on above: Result Comment: JOSEFINA RED INR: 2.0 - 3.0 CONDITIONS NOT LISTED BELOW 2.5 - 3.5 FOR PROSTHETIC HEART VALVE REPLACEMENT 2.5 - 3.5 RECURRENT THROMBOSIS Performed By: #### P RICHARDSON MCNEIL UMICRO #### [facility] [address] [place] [address] Dr. Tho Hardy PT Coag (PPP) [Time] 10.5 s Normal 9.0-11.[address] [facility] Comment on above: Performed By: #### P RICHARDSON MCNEIL UMICRO #### [facility] [address] [place] [address] Dr. Tho Hardy PTTon 04-11-2022 aPTT Coag (Bld) [Time] 27.8 s Normal 22.3-36.2 [facility] Comment on above: Performed By: #### P RICHARDSON MCNEIL UMICRO #### [facility] [address] [place] [address] Dr. Tho Hardy URINE MICROSCOPIC ONLYon BACTERIA NONE SEEN Normal NONE SEEN [facility] Comment on above: Performed By: #### B MP #### [facility] [address] [place] [address] Dr. Tho Hardy Bacteria identified Cx Nom (U) NOT INDICATED Normal [facility] Comment on above: Performed By: #### B MP #### [facility] [address] [place] [address] Dr. Tho Hardy CAST NONE SEEN Normal NONE SEEN [facility] Comment on above: Performed By: #### B MP #### [facility] [address] [place] [address] Dr. Tho Hardy Crystals LM Nom (Urine sed) NONE SEEN Normal NONE SEEN [facility] Comment on above: Performed By: #### B MP #### [facility] [address] [place] [address] Dr. Tho Hardy Epithelial cells LM Ql (Urine sed) NONE SEEN Normal NONE SEEN /RARE [facility] Comment on above: Performed By: #### B MP #### [facility] [address] [place] [address] Dr. Tho Hardy MUCOUS NONE SEEN Normal NONE SEEN [facility] Comment on above: Performed By: #### B MP #### [facility] [address] [place] [address] Dr. Tho Hardy RBC 2-5 Abnormal 0-2 [facility] Comment on above: Performed By: #### B MP #### [facility] [address] [address] [address] Tho Hardy WBC NONE SEEN Normal NONE SEEN [facility] Comment on above: Performed By: #### B MP #### [facility] [address] [address] [address] Tho Hardy XR ANKLE LT MIN 3 Von 2021 XR ANKLE LT MIN 3 V EXAM: XR ANKLE LT PA N 3 V HISTORY: Left ankle pain COMPARISON: None. TECHNIQUE: 3 views FINDINGS: No osseous lesion, fracture, dislocation or subluxation. Joint spaces are normal. No visualized effusion. No visualized soft tissue edema. IMPRESSION: Normal x-rays Electronically authenticated by: AYAD CORTEZ Date: 2022-02-06 19:06 Normal [facility] Vital Signs Date Time Vital Sign Value Performing Clinician Danny rolley 12-21-2024 15:05-0400 Body mass index (BMI) [Ratio] 56.14 kg/m2 Noah Isabelle DO Work Phone: [facility] 12-21-2024 15:05-0400 Body weight 134.77 kg Noah Isabelle DO Work Phone: [facility] 12-21-2024 15:05-0400 Diastolic blood pressure 70 mm[Hg] Noah Isabelle DO Work Phone: [facility] 12-21-2024 15:05-0400 Systolic blood pressure 118 mm[Hg] Noah Isabelle DO Work Phone: [facility] 09-13-2024 15:10-0500 Body mass index (BMI) [Ratio] 53.31 kg/m2 Noah Isabelle DO Work Phone: [facility] 09-13-2024 15:10-0500 Body weight 127.97 kg Noah Isabelle DO Work Phone: [facility] 09-13-2024 15:10-0500 Diastolic blood pressure 82 mm[Hg] Noah Isabelle DO Work Phone: [facility] 09-13-2024 15:10-0500 Systolic blood pressure 130 mm[Hg] Noah Isabelle DO Work Phone: [facility] 05-16-2022 14:03-0400 Body weight 133.81 kg Rosa Maria Israel MD Work Phone: [facility] 05-16-2022 12:56-0400 Body height 152.[address] Work Phone: [facility] 05-16-2022 12:56-0400 Body weight 133.[address] Work Phone: [facility] Encounters Encounter Date Encounter Type Care Provider Facility Start: 05-11-2025 End: 05-11-2025 ambulatory [facility] Start: 05-06-2025 End: 05-06-2025 Emergency department patient visit [facility] Start: 04-29-2025 End: 04-29-2025 ambulatory [facility] Start: 04-11-2025 ambulatory [facility] Start: 03-30-2025 End: 03-30-2025 ambulatory [facility] Start: 03-30-2025 End: 03-30-2025 ambulatory [facility] Start: 03-25-2025 End: 03-25-2025 ambulatory [facility] Start: 12-21-2024 End: 12-21-2024 Patient encounter procedure Noah Isabelle DO Work Phone: [facility] Work Phone: Start: 12-21-2024 End: 12-21-2024 Periodic preventive med est patient 18-39 yrs Noah Isabelle DO Work Phone: [facility] Comment on above: Well woman exam with routine gynecological exam; Sweating abnormality; Status post hysterectomy; Vaginal dryness; BV (bacterial vaginosis); Yeast infection of the vagina Start: 12-21-2024 End: 12-21-2024 ambulatory NOAH ISABELLE Not Available Start: 12-21-2024 End: 12-21-2024 Bamboo flowsheet Noah Isabelle DO Work Phone: [facility] Start: 12-21-2024 End: 12-26-2024 Bamboo flowsheet Noah Isabelle DO Work Phone: [facility] Start: 12-21-2024 End: 12-26-2024 Clinisync Result Encounter Noah Isabelle DO Work Phone: [facility] External Department Unsolicited Start: 09-13-2024 End: 09-13-2024 Office outpatient visit 15 minutes Noah Isabelle DO Work Phone: [facility] Comment on above: Sweating abnormality ; Status post hysterectomy; Vaginal dryness Start: 09-13-2024 End: 09-13-2024 ambulatory NOAH ISABELLE Not Available Start: 09-13-2024 End: 09-13-2024 Bamboo flowsheet Noah Isabelle DO Work Phone: [facility] Start: 09-13-2024 End: 09-13-2024 Bamboo flowsheet Noah Isabelle DO Work Phone: [facility] Start: 01-06-2024 End: 01-07-2024 ambulatory [facility] Start: 11-11-2023 End: 11-12-2023 ambulatory KERA COONEY Facility: [place] Start: 08-19-2023 End: 08-20-2023 ambulatory Carmen Coello Facility: [facility] Start: 12-30-2022 End: 12-30-2022 ambulatory MITESH WHITMAN . Facility: Start: 12-17-2022 End: 12-17-[address] NOAH WALTON . Facility:[facility] Start: 11-13-2022 End: 11-14-[address] . Facility:[facility] Start: 10-30-[address] . Facili ty:[facility] Start: 2022 End: 10-16-2022 ambulatory MCKENZIE EDGAR Facility:[facility] Start: 10-14-2022 End: 10-14-2022 ambulatory NATALIE David CHARU Facility:[facility] Start: 09-26-2022 End: 09-26-2022 ambulatory NATALIECARMEN YOONON Facility:[facility] Start: 08-04-2022 End: 08-04-2022 ambulatory TARA [...] Maria Israel MD Work Phone: [facility] Start: 05-01-2022 End: 05-02-[address] NOAH WALTON . Facility:[facility] Start: 04-11-2022 End: 04-12-[address] . Facility:[facility] Start: 03-21-2022 End: 03-22-2022 ambulatory MCKENZIE EDGAR Facility:[facility] Start: 03-18-2022 End: 03-18-[address] . Facility:[facility] Start: 03-14-2022 End: 04-04-2022 ambulatory JERED TOVAR Facility:[facility] Start: 02-14-2022 End: 02-15-2022 ambulatory MCKENZIE EDGAR Facility: Start: 02-06-2022 End: 02-06-[address] . Facility: Procedures Date Procedure Procedure Detail Performing Clinician Start: 12-21-2024 IGP,APTIMA HPV,AGE GDLN Noah Isabelle DO Work Phone: Start: 12-17-2022 Microscopic observation [Identifier] in Cervix by Cyto stain Noah Isabelle DO Work Phone: H/O: hysterectomy Status post hysterectom y Noah Isabelle DO Work Phone: H/O: hysterectomy Status post hysterectom y Noah Isabelle DO Work Phone: Plan of Treatment Date Care Activity Detail Author Start: 12-28-2025 End: 12-28-2025 Patient encounter procedure 12/28/2025 4:00 PM EDT Office Visit [facility] [address] [place] [id number] Noah Walton, DO [address], [place] [address] [facility] Start: 12-17-2025 Screening for malign ant neoplasm of cervix [facility] Start: 05-09-2025 Influenza vaccination Influenz a Vaccine (Season Ended) [facility] Start: 12-21-2024 End: 12-21-2024 Patient encounter procedure 12/21/2024 3:00 PM EDT Office Visit [facility] [address] [place] [id number] Noah Walton DO [address] [place] [address] Arrived [facility] Comment on above: Arrived Start: 09-13-2024 End: 09-13-2024 Patient encounter procedure 09/13/2024 2:50 PM EST Office Visit [facility] [address] [place] [address] Noah Walton DO [address] [place] [address] Arrived [facility] Comment on above: Arrived Start: 05-09-2024 Influenza vaccination Influenza Vacc ine (#1) [facility] Start: 2023 Screening for malign ant neoplasm of cervix HPV/Cotest [facility] Start: 05-16-2022 End: 05-14-2023 25-hydroxyvitamin D3 [Mass/volume] in Serum or Plasma VITAMIN D 25 HYDROXY Lab Routine Abnormal weight gain Preop testing Morbid obesity with BMI of 50.0-59.9, adult (HCC) HANH (obstructive sleep apnea) Expected: 05/16/2022 (Approximate), Expires: 05/14/2023 [facility] Work Phone: Comment on above: Expected: 05/16/2022 (Approximate), Expires: 05/14/2023 Start: 05-16-2022 End: 05-14-2023 CBC panel - Blood by Automated count CBC Lab Routine Abnormal weight gain Preop testing Morbid obesity with BMI of 50.0-59.9, adult (HCC) HANH (obstructive sleep apnea) Expected: 05/16/2022 (Approximate), Expires: 05/14/2023 [facility] Work Phone: Comment on above: Expected: 05/16/2022 (Approximate), Expires: 05/14/2023 Start: 05-16-2022 End: 05-14-2023 Cobalamin (Vitamin B12) [Mass/volume] in Serum or Plasma VITAMIN B12 BLOOD Lab Routine Abnormal weight gain Preop testing Morbid obesity with BMI of 50.0-59.9, adult (HCC) HANH (obstructive sleep apnea) Expected: 05/16/2022 (Approximate), Expires: 05/14/2023 [facility] Work Phone: Comment on above: Expected: 05/16/2022 (Approximate), Expires: 05/14/2023 Start: 05-16-2022 End: 05-14-2023 Comprehensive metabolic 2000 panel - Serum or Plasma COMP METABOLIC PANEL Lab Routine Abnormal weight gain Preop testing Morbid obesity with BMI of 50.0-59.9, adult (HCC) HANH (obstructive sleep apnea) Expected: 05/16/2022 (Approximate), Expires: 05/14/2023 [facility] Work Phone: Comment on above: Expected: 05/16/2022 (Approximate), Expires: 05/14/2023 Start: 05-16-2022 End: 05-14-2023 Folate [Mass/volume] in Serum or Plasma FOLATE SERUM Lab Routine Abnormal weight gain Preop testing Morbid obesity with BMI of 50.0-59.9, adult (HCC) HANH (obstructive sleep apnea) Expected: 05/16/2022 (Approximate), Expires: 05/14/2023 [facility] Work Phone: Comment on above: Expected: 05/16/2022 (Approximate), Expires: 05/14/2023 Start: 05-16-2022 End: 05-14-2023 Hemoglobin A1c in Blood HGB A1C Lab Routine Abnormal weight gain Preop testing Morbid obesity with BMI of 50.0-59.9, adult (HCC) HANH (obstructive sleep apnea) Expected: 05/16/2022 (Approximate), Expires: 05/14/2023 [facility] Work Phone: Comment on above: Expected: 05/16/2022 (Approximate), Expires: 05/14/2023 Start: 05-16-2022 End: 05-14-2023 Iron and Iron binding capacity panel - Serum or Plasma IRON + TIBC Lab Routine Abnormal weight gain Preop testing Morbid obesity with BMI of 50.0-59.9, adult (HCC) HANH (obstructive sleep apnea) Expected: 05/16/2022 (Approximate), Expires: 05/14/2023 [facility] Work Phone: Comment on above: Expected: 05/16/2022 (Approximate), Expires: 05/14/2023 Start: 05-16-2022 End: 05-14-2023 Parathyrin.intact [Mass/volume] in Serum or Plasma PTH INTACT BLD Lab Routine Abnormal weight gain Preop testing Morbid obesity with BMI of 50.0-59.9, adult (HCC) HANH (obstructive sleep apnea) Expected: 05/16/2022 (Approximate), Expires: 05/14/2023 [facility] Work Phone: Comment on above: Expected: 05/16/2022 (Approximate), Expires: 05/14/2023 Start: 05-16-2022 End: 05-14-2023 Thyrotropin [Units/volume] in Serum or Plasma TSH BLD Lab Routine Abnormal weight gain Preop testing Morbid obesity with BMI of 50.0-59.9, adult (HCC) HANH (obstructive sleep apnea) Expected: 05/16/2022 (Approximate), Expires: 05/14/2023 [facility] Work Phone: Comment on above: Expected: 05/16/2022 (Approximate), Expires: 05/14/2023 Start: 05-16-2022 End: 07-16-2022 VITAMIN B1 (THIAMINE), WHOLE BLOOD VITAMIN B1 (THIAMINE), WHOLE BLOOD Lab Routine Abnormal weight gain Preop testing Morbid obesity with BMI of 50.0-59.9, adult (HCC) HANH (obstructive sleep apnea) Expected: 05/16/2022 (Approximate), Expires: 07/16/2022 [facility] Work Phone: Comment on above: Expected: 05/16/2022 (Approximate), Expires: 07/16/2022 Start: 05-09-2022 Influenza vaccination INFLUENZA (#1) [facility] Start: 05-05-2022 COVID-19 VACCINE (3 - Booster for Pfizer series) COVID-19 VACCINE (3 - Booster for Pfizer series) [facility] Start: 2014 PAP TESTING PAP TESTING [facility] Start: 2012 Urine microalbumin profile DTAP,TDAP,TD (1 - Tdap) [facility] Start: 2011 HEPATITIS C SCREENING HEPATITIS C SC REENING [facility] Start: 2011 HIV SCREENING HIV SCREENING [facility] Start: 2005 Adult depression screening assessment DEPRESSION SCREENING [facility] Start: 1993 HEPATITIS B (1 of 3 - 3-dose series) HEPATITIS B (1 of 3 - 3-dose series) [facility] Cytology Cervical or vaginal smear or scraping study Pap Smear Pathology and Cytology Routine Well woman exam with routine gynecological exam Ordered: 12/21/2024 [facility] [employer] Work Phone: Comment on above: Ordered: 12/21/2024 End: 05-14-2023 ECG COMPLETE ECG COMPLETE ECG Routine Abnormal weight gain Preop testing Morbid obesity with BMI of 50.0-59.9, adult (HCC) HANH (obstructive sleep apnea) 1 Occurrences starting 05/16/2022 until 05/14/2023 [facility] Work Phone: Comment on above: 1 Occurrences starti ng 05/16/2022 until 05/14/2023 Human papilloma viru s DNA [Presence] in Unspecified specimen by Probe with amplification HPV DNA probe, amplified Microbiology Routine Well woman exam with routine gynecological exam Ordered: 12/21/2024 [facility] Comment on above: Ordered: 12/21/2024 End: 06-13-2023 Radiologic exam chest 2 views XR CHEST 2V FRONTAL/LAT Radiology Routine Abnormal weight gain Preop testing Morbid obesity with BMI of 50.0-59.9, adult (HCC) HANH (obstructive sleep apnea) 1 Occurrences starting 05/16/2022 until 06/13/2023 [facility] Work Phone: Comment on above: 1 Occurrences starti ng 05/16/2022 until 06/13/2023 [facility] Immunizations Immunization Date Immunization Notes Care Provider Simba may 06-18-2022 influenza virus vacc ine, unspecified formulation Noah Walton DO Work Phone: [facility] Payers Date Payer Category Payer Medicaid [employer] [employer] [id number] 2018-Present [phone] [address] [place] [id number] Medicaid [id number] 2018 Medicaid (Managed Care) [employer] [id number] 1993 Unknown [id number] 2.16.840.1.990299.3.579.2. 593 1993 Unknown [id number] 2.16.840.1.374371.3.579.2. 593 1993 Unknown [id number] 2.16.840.1.080149.3.579.2. 593 1993 Unknown [id number] 2.16.840.1.142527.3.579.2. 593 1993 Unknown [id number] 2.16840.1.539061.3.579.2. 593 1993 Unknown [id number] 2.16.840.1.693134.3.579.2. 593 1993 Unknown [id number] 2.16.840.1.569786.3.579.2. 593 1993 Unknown [id number] 2.16.840.1.153891.3.579.2. 593 1993 Unknown [id number] 2.16840.1.721548.3.579.2. 593 1993 Unknown [id number] 2.16.840.1.694255.3.579.2. 593 1993 Unknown [id number] 2.16.840.1.111769.3.579.2. 593 1993 Unknown [id number] 2.16.840.1.578990.3.579.2. 593 1993 Unknown [id number] 2.16.840.1.933505.3.579.2. 593 1993 Unknown [id number] 2.16.840.1.021796.3.579.2. 593 1993 Unknown [id number] 2.16.840.1.892238.3.579.2. 593 1993 Unknown [id number] 2.16.840.1.033982.3.579.2. 593 1993 Unknown [id number] 2.16.840.1.660073.3.579.2. 727 1993 Unknown [id number] 2.16.840.1.640934.3.579.2. 727 1993 Unknown [id number] 2.16.840.1.213206.3.579.2. 727 1993 Unknown [id number] 2.16.840.1.886353.3.579.2. 1259 1993 Unknown [id number] 2.16.840.1.033087.3.579.2. 1259 1993 Unknown [id number] 2.16.840.1.133284.3.579.2. 1286 1993 Unknown [id number] 2.16.840.1.083873.3.579.2. 1286 1959 Unknown [id number] Social History Date Type Detail Facility Start: 04-26-2022 End: 01-27-2023 Tobacco smoking status INIS Never smoked tobacco [facility] Start: 04-26-2022 End: 01-27-2023 Tobacco use and exposure Smokeless tobacco non-user [facility] Start: 1993 Sex Assigned At Not on file [facility] Start: 04-14-2022 End: 04-24-2022 Exposure to SARS-CoV-2 (event) Not sure [facility] Start: 05-05-2023 End: 09-13-2024 Alcoholic beverage intake Ex-drinker (finding) [facility] Start: 05-05-2023 End: 09-13-2024 History of Social function [facility] Start: 05-05-2023 End: 09-13-2024 Tobacco use panel [facility] Clinical Notes 02-15-2022 to 05-11-2025 Avani Calle, BALANCER SCALE - 12/21/2024 3:00 PM EDTSmarc Elizabeth, BALANCER SCALE - 09/13/2024 2:50 PM ESTPatient InstructionsPatient InstructionsRosa [...] past 36 hours). No follow-ups on file. 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 No orders of the defined types were placed in this encounter. No results found for this or any previous visit (from the past 36 hours). No follow-ups on file. Ion Kinsey, MS3 [facility] [employer] 05/11/[address] [facility] 04-29-2025 Note Patient: Connie Salcido Procedure Summary Date: 04/29/25 Room / Location: [facility] OPERATING ROOM 13 / [facility] Operating Room Anesthesia Start: 1231 Anesthesia [...] no known notable events for this encounter. [facility] 04-29-2025 Note Custodial Worker [facility] questions regarding self care and activity. Pt verbalized understanding and reminded that a physician is available 31/03 if any farther questions. 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 04-29-2025 Note Patient: Connie Salcido Procedure Information Date/Time: 04/29/25 1300 Procedure: ROBOTIC INCISIONAL HERNIA REPAIR WITH MESH Location: [facility] OPERATING ROOM 13 / [facility] Operating Room Surgeons: Delfina Tanner MD [...] discussed with patient who. Additional Equipment Requests [facility] 03-30-2025 Note mraSubjective Patient ID: Connie [...] past 36 hours). No follow-ups on file. [facility] 03-21-2025 Note Received referral fo r Ventral Hernia. Called patient to schedule consult appt. Needs Pre-Reg. Images Requested. LMVM to call office back to schedule consult appt. [facility] 12-21-2024 History of Present illness Narrative [...] nursing note reviewed. Exam conducted with a flap presser present. Vitals: Estimated body mass index is [...] Noah Walton DO documented in this encounter [facility] 09-13-2024 History of Present illness Narrative [...] nursing note reviewed. Exam conducted with a flap presser present. Vitals: Estimated body mass index is [...] Noah Walton DO documented in this encounter [facility] 05-17-[address] - [...] Read Nutrition Guidelines section before next visit. [email or web address]?la=[email or web address] Pre-op goal weight: 276 pounds Protein needs: 70 gm per day Nutrition Monitoring & Evaluation: Weight loss of 1-2 pounds per week and adherence to above recommendations Criteria: Patient update and weight check Need for Follow up: 1 month, please call [phone] documented in this encounter [facility] 05-16-2022 Instructions Rosa Maria Israel MD - 05/16/2022 5:19 PM EDT INSTRUCTIONS: 1) Please contact me (Dr. Israel) if you have not heard about your test results within a few days after you had them done. Thank you: Contact information: [facility]ariat[facility] [place] M61/Attention: Dr. Israel [address] [place] [address] 2) Please check with your insurance company regarding cost/coverage of any tests ordered prior to having them completed. Colleen Salcido , Thank you for completing your visit today and we welcome you to the surgical program. We are sure that you will still have some additional questions and encourage you to reach out to your care provider via [employer] OR your Patient Navigator. Patient Navigators are [...] free to ask for a hard copy. [email or web address]?la=[email or web address] Once you complete all of the requirements (testing, consultations, diet, etc) from each provider, please call [phone] and select option #5 to initiate insurance approval. Please note scheduling information It is important to keep track of your scheduled appointments to ensure successful completion of our surgical program. Any missed appointments can further delay your pre-surgical work-up. [facility] does offer an opt-in option for getting text message appointment reminders. Please follow the link below if you would like to opt into this service. [email or web address] As part of [...] these tests. You may call your local [facility] to get an appointment. - Lab work- No appointment is needed for this, you may complete at any [facility] Laboratory. These are usually fasting labs, please be sure to fast (only water permitted) for 10-12 hours prior to the test. -Sleep Study- Please call [phone] or [phone] to get this appointment set up. -Sleep Medicine Consult- (Only needed if sleep study confirms sleep apnea) Please call [phone] or [phone] to schedule an appointment. Any testing that is completed outside of [facility] will need faxed to [phone]. We look forward to working with you on this journey, Rosa Maria Israel MD documented in this encounter [facility] 05-16-2022 Note HNO ID: [id number] Author: Rosa Maria Israel MD Service: ? [...] and diagnosed-she is on a list for [id number]-cyr sleep study was about Sochx: -single/: -children: yes -occupation: works at [employer] -tobacco use: non-smoker -ETOH: 2 per month ALL: See [facility] LABS: IMAGING: PROC: CARDIAC: MEDS: See [facility] PMH: -depression/anxiety-Prozac -has taken phentermine (1/2 [...] cardiac, valvular or vascular issues *no h/o PA, CAD, CHF, no cp/palpitations Respiratory: Denies any [...] LMP?//rash/discharge/p elvic pain/menstrual (more content not included)... [facility] 05-16-2022 Note HNO ID: [id number] Author: Micaela Cavazos RD Service: ? Author Type: Registered Dietitian Type: Progress Notes Filed: 05/17/2022 1:34 PM Note Text: [facility] Nutrition Therapy: Virtual Consult - Initial [...] limited to ADL's although she occasionally walks. [place] body weight: 128 lbs. Excess body weight: 167 lbs. Goal weight pre-op: 276 lbs. Protein needs estimated: 70 (1.2 g protein/kg IBW) Patient meets the National Institutes of Health guidelines for weight loss surgery and has [employer] Insurance therefore is required to complete 6 [...] Read Nutrition Guidelines section before next visit. [email or web address]/ [email or web address] [email or web address]?la=en Pre-op goal weight: 276 pounds Protein (more content not included)... [facility] 05-16-2022 History of Present illness Narrative [...] and diagnosed-she is on a list for zhni-[id number]-mtr sleep study was about Sochx: -single/: -children: yes -occupation: works at [employer] -tobacco use: non-smoker -ETOH: 2 per month [...] cardiac, valvular or vascular issues *no h/o PA, CAD, CHF, no cp/palpitations Respiratory: Denies any [...] which included preparing to see the patient, ikkp-qc-iayf patient care, completing clinical documentation, obtaining and/or reviewing separately obtained history, counseling and educating the patient/family/caregiver, ordering medications, tests, or procedures, and care coordination (not separately reported). documented in this encounter [facility] 05-16-2022 History of Present illness Narrative [facility] Nutrition Therapy: Virtual Consult - Initial [...] limited to ADL's although she occasionally walks. Godfrey body weight: 128 lbs. Excess body weight: 167 lbs. Goal weight pre-op: 276 lbs. Protein needs estimated: 70 (1.2 g protein/kg IBW) Patient meets the National Institutes of Health guidelines for weight loss surgery and has [employer] Insurance therefore is required to complete 6 [...] Read Nutrition Guidelines section before next visit. https://my.[facility].org/ -/scassets/files/org/bariatric/ guides/bmiguidebook-[email or web address].as hx?la=en Pre-op goal weight: 276 pounds Protein needs: 70 gm per day Nutrition Monitoring & Evaluation: Weight loss of 1-2 pounds per week and adherence to above recommendations Criteria: Patient update and weight check Need for Follow up: 1 month, please call [phone] MNT Billing Type: Initial Assess/15 min 2 units Signed by: Micaela Cavazos RD documented in this encounter [facility] 04-26-2022 Note HNO ID: [id number] Author: Carlos Tariq MD Service: ? Author [...] appreciative of the care Carlos Tariq MD [facility] 03-21-2022 Note PROCEDURE: XR FOOT L T MIN 3 VIEWS COMPARISON: None. HISTORY: Pain in left foot FINDINGS: BONES:No fracture, acute abnormality, or significant arthropathy. SOFT TISSUES:Negative. No visible soft tissue swelling. EFFUSION:None visible. OTHER: Negative. IMPRESSION: No acute abnormality Electronically authenticated by: AYAD MALCOLM Date: 2022-03-21 19:14 [facility] 02-15-2022 Note PROCEDURE: XR ANKLE LT MIN 3 V COMPARISON: 02/07/2020 HISTORY: Pain of left ankle joint FINDINGS: BONES:No fracture, acute abnormality, or significant arthropathy. SOFT TISSUES:Negative. No visible soft tissue swelling. EFFUSION:None visible. OTHER: Negative. IMPRESSION: No acute abnormality Electronically authenticated by: AYAD MALCOLM Date: 2022-02-15 07:35 [facility] Evaluation note Diagnosis Abnormal weight gain- Primary Preop testing Preoperative examination, unspecified Morbid obesity with BMI of 50.0-59.9, adult ([facility]) Morbid obesity HANH (obstructive sleep apnea) Obstructive sleep apnea (adult) (pediatric) [facility] Diagnosis Body mass index 50.0-59.9, adult (HCC)- Primary Body Mass Index 50.0-59.9, adult Dietary counseling and surveillance Dietary surveillance and counseling documented [facility] this [facility] Diagnosis Sweating abnormality Status post hysterectomy Acquired absence of both cervix and uterus Vaginal dryness Postmenopausal atrophic vaginitis documented in this encounter [facility] HealthcareEvaluation note* Diagnosis Well woman exam with routine gynecological exam Routine gynecological examination Sweating abnormality Status post hysterectomy Acquired absence of both cervix and uterus Vaginal dryness Postmenopausal atrophic vaginitis BV (bacterial vaginosis) Unspecified vaginitis and vulvovaginitis Yeast infection of the vagina Candidiasis of vulva and vagina documented in this encounter [facility] HealthcareReason for referral (narrative)* Outpatient Procedure (Routine) - Pending Review Specialty Diagnoses / Procedures Referred By Contreynaldo t Referred To [facility] Diagnoses Abnormal weight gain Preop testing Morbid obesity with BMI of 50.0-59.9, adult (HCC) HANH (obstructive sleep apnea) Procedures ECG COMPLETE ECG ROUTINE ECG W/LEAST 12 LDS W/I&R Rosa Maria Israel MD [address] [id number] [facility] [place] [facility] [place] [address] Referral ID Status Reason Start Date Expiration Date Visits Requested Visits Authorized [id number] Pending Review Auto-Generat ed Referral 05/16/2022 05/14/2023 [address] [facility] Summary Purpose Family History No Family [...] or prosecute any alcohol or drug abuse patient.[facility] the event this information is protected by the Federal Confidentiality of Alcohol and Drug Abuse Patient Records regulations: The Federal rules restrict any use of the information to criminally investigate or prosecute any alcohol or drug abuse patient.[facility] Reason for Visit (unrecogniz ed section and content) Reason Comments New Patient Reason Comments Patient Education Assessment Reason Comments Excessive Sweating Reason Comments Well Women Visit Care Teams (unrecognized sec tion and content) Charting Clerk Relationship Specialty Start Date End Date Noah Walton, DO [address] [phone] Referring RADIO OPERATOR 04/23/22 Charting Clerk Relationship Specialty Start Date End Date Noah Walton, DO [address] [phone] Referring RADIO OPERATOR 04/23/22 Charting Clerk Relationship Specialty Start Date End Date Valerie Way MD [address] [place] [address] PCP - General Family Medicine 01/27/23 Charting Clerk Relationship Specialty Start Date End Date Valerie Way MD [address] [place] [address] PCP - General Family Medicine 01/27/23 Charting Clerk Relationship Specialty Start Date End Date Valerie Way MD [address] [place] [address] PCP - General Family Medicine 01/27/23 Charting Clerk Relationship Specialty Start Date End Date Valerie Way MD [address] [place] [address] PCP - General Family Medicine 01/27/23 Charting Clerk Relationship Specialty Start Date End Date Valerie Way MD [address] [place] [address] PCP - General Family Medicine 01/27/23 INFORMATION SOURCE (unrecogn ized section and content) DATE CREATED AUTHOR 05/18/2022 [facility] DATE CREATED AUTHOR AUTHOR'S ORGANIZ ATION 01/01/2023 [facility] DATE CREATED AUTHOR AUTHOR'S ORGANIZ ATION 01/08/2024 [facility] DATE CREATED AUTHOR AUTHOR'S ORGANIZ ATION 12/23/2024 [facility] DATE CREATED AUTHOR AUTHOR'S ORGANIZ ATION 05/08/2025 [facility] DATE CREATED AUTHOR AUTHOR'S ORGANIZ ATION 06/03/2025 [facility] FOR RECORDS PERTAINING TO PATIENTS WHO [...] BE BASED ON THE PRIMARY CLINICAL RECORDS. [employer] provides no warranty or guarantee of the accuracy or completeness of information in this document.
--- NOTE | 2025-06-11 16:01 | ED_ITS ---
HPI HPI - General Adult General Chief complaint: Upper Respiratory Infection Stated complaint: SORE THROAT Time Seen by Provider: 06/11/25 15:47 Source: patient Mode of arrival: walk-in Limitations: no limitations History of Present Illness HPI narrative: Patient is a 29-year-old female that presents to the emergency department with complaints of sore throat that started last night while she was at work. She works at [employer] and is around other people and food. She states that her and kids have been sick with nasal congestion. She denies any fever, night sweats, or chills. She states that she has had an intermittent cough but no congestion. She does have seasonal allergies. She denies chest pain, shortness of breath, or abdominal pain. Related Data Home Medications ?Medication ?Instructions ?Recorded ?Confirmed hpdqewweya-jcsfgaudpykne-lqttcsmm cap 10/06/24 50 mg-300 mg-40 mg capsule desvenlafaxine succinate 50 mg mg PO 03/16/25 tablet,extended release 24 hr estradiol 0.075 mg/24 hr weekly 03/16/25 transdermal patch hydroxyzine HCl 25 mg tablet mg 03/16/25 Previous Rx's ?Medication ?Instructions ?Recorded ondansetron 4 mg disintegrating 4 mg PO Q6H PRN nausea and 10/06/24 tablet vomiting #12 tabs Allergies Allergy/AdvReac Type Severity Reaction Status Date / Time meloxicam Allergy Headache Verified 06/11/25 15:34 hydrocodone (From [place]) AdvReac Mild Nausea Verified 06/11/25 15:34 hydromorphone (From Dilaudid) AdvReac Mild Nausea Verified 06/11/25 15:34 Opioid HPI Opioid Management Most Recent Opioid Data: Last Pain Scale 7 Today, 15:34 Review of Systems ROS Status of ROS 10 or more systems reviewed and unremark able except as noted in history and below [facility] Medical History (Updated 06/11/25 @ 16:27 by MITESH Romero) Migraine ?G43.909 - Migraine, unspecified, not intractable, without status migrainosus (ICD-10) Sleep apnea ?G47.30 - Sleep apnea, unspecified (ICD-10) Bronchitis ?J40 - Bronchitis, not specified as acute or chronic (ICD-10) Kidney stones ?N20.0 - Calculus of kidney (ICD-10) Postoperative nausea and vomiting ?R11.2 - Nausea with vomiting, unspecified (ICD-10) ?Z98.890 - Other specified postprocedural states (ICD-10) Hernia ?K46.9 - Unspecified abdominal hernia without obstruction or gangrene (ICD- 10) Pelvic pain ?R10.2 - Pelvic and perineal pain (ICD-10) Dyspareunia Dysmenorrhea ?N94.6 - Dysmenorrhea, unspecified (ICD-10) Menorrhagia ?N92.0 - Excessive and frequent menstruation with regular cycle (ICD-10) Surgical History (Updated 03/27/23 @ 13:10 by Deneen Ayala NP) History of section ?Z98.891 - History of uterine scar from previous surgery (ICD-10) History of section ?Z98.891 - History of uterine scar from previous surgery (ICD-10) H/O tubal ligation ?Z98.51 - Tubal ligation status (ICD-10) H/O lithotripsy ?Z98.890 - Other specified postprocedural states (ICD-10) History of endometrial ablation (11/16/21) ?Z98.890 - Other specified postprocedural states (ICD-10) History of cholecystectomy ?Z90.49 - Acquired absence of other specified parts of digestive tract (ICD- 10) History of ankle surgery ?Z98.890 - Other specified postprocedural states (ICD-10) Family History (Updated 03/27/23 @ 13:10 by Deneen Ayala NP) Other Family history of DVT Family history of cancer Family history of heart disease Family history of hypertension Social History Within the past year, how often did you have a drink containing alcohol: monthly or less Smoking status: Never smoker Non-prescribed substance use: denies use 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 No rash. Head: Normocephalic, atraumatic. Neck: Supple, non-tender. Eye: Pupils are equal, round and EOMI. No scleral icterus. Ears, Nose, Mouth, and Throat: TMs are clear bilaterally, ear canal with erythema bilaterally, no nasal mucosal hypertrophy. Oral mucosa is moist, mild posterior oropharynx erythema, uvula is mid-line, no tonsillar exudates, no anterior cervical adenopathy, Cardiovascular: Regular Rate and Rhythm without murmur, gallop or rub. Respiratory: No accessory muscle use or respiratory distress. Lungs are clear to auscultation, no wheezing, rales or rhonchi Chest Wall: no tenderness Musculoskeletal: Full ROM of all extremities, no calf or popliteal tenderness GI: Abdomen is soft, non-distended, non tender to palpation. No masses appreciated. No rebound, guarding, or rigidity noted. Neurological: A&O x4. No cranial nerve dysfunction observed. No truncal ataxia. Moves all extremities. Sensation intact. Psychiatric: Cooperative and interactive. Normal mood and affect. Constitutional Vital Signs, click to edit/add: Last Vital Signs Temp 98.1 F 06/11/25 15:34 Pulse 94 H 06/11/25 15:34 Resp 14 06/11/25 15:34 BP 138/90 06/11/25 15:34 Pulse Ox 100 06/11/25 15:34 O2 Del Method Room Air 06/11/25 15:34 Documenting provider has reviewed patient's vital signs: yes Course Vital Signs Vital signs: Vital Signs Temperature 98.1 F 06/11/25 15:34 Pulse Rate 94 H 06/11/25 15:34 Respiratory Rate 14 06/11/25 15:34 Blood Pressure 138/90 06/11/25 15:34 Pulse Oximetry 100 06/11/25 15:34 Oxygen Delivery Method Room Air 06/11/25 15:34 Temperature 98.1 F 06/11/25 15:34 Pulse Rate 94 H 06/11/25 15:34 Respiratory Rate 14 06/11/25 15:34 Blood Pressure 138/90 06/11/25 15:34 Pulse Oximetry 100 06/11/25 15:34 Oxygen Delivery Method Room Air 06/11/25 15:34 Medical Decision Making MDM Narrative Medical decision making narrative: This is a 29-year-old female that presented to the emergency department with complaints of 1 day of sore throat that started yesterday while she was at work. 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 She states she has had an intermittent cough and does have sick contacts in her household. She denies fever, night sweats, or chills. On arrival patient is in no distress, vitals are stable, patient is afebrile at 98.1 degrees. She has mild oropharyngeal erythema, no tonsillar exudates. No cervical lymphadenopathy. Strep, COVID, influenza A/B ordered. The patient?s presentation, including sore throat and intermittent cough, is most consistent with viral pharyngitis, likely related to an upper respiratory viral infection, given the absence of fever and the negative strep, flu, and COVID-19 tests. Her history of seasonal allergies may also be contributing to her symptoms, including the sore throat. No signs of severe or systemic infection were noted, and the absence of fever or respiratory compromise further supports a viral etiology. No antibiotics indicated. Viral pharyngitis - Symptomatic treatment (throat lozenges, hydration, rest). - Recommend bsie-gfo-vqtvlfw (OTC) medications as needed for pain relief and allergy management (e.g., acetaminophen, antihistamines). - Return precautions: advised to return for worsening symptoms, including the development of fever, difficulty swallowing, shortness of breath, or if new symptoms develop. - No antibiotics indicated, as this is most likely a viral infection. - The patient has been educated on the nature of viral infections and the expected course of symptoms, with no concerns for bacterial superinfection at this time. - Follow up with PCP or return to the emergency department for any new or worse delfino symptoms. Differential Diagnosis Differential Diagnosis: Strep pharyngitis, viral pharyngitis, COVID, influenza A/B Lab Data Lab results reviewed: Yes I reviewed the patient's lab results Labs: Lab Results 06/11/25 Range/Units 15:40 Influenza Type A Ag Negative Influenza Type B Ag Negative SARS-CoV-2 Ag (CV2AG) Negative (NEGATIVE) Streptococcus Screen Negative Discharge Plan Discharge Chief Complaint: Upper Respiratory Infection Clinical Impression: Viral infection Patient Disposition: Home, Self-Care Time of Disposition Decision: 16:26 Condition: Good Mode of Transportation: Private Vehicle Prescriptions / Home Meds: No Action whhmbnrwmu-yupgwozeydipf-gusw 50-300-40 mg capsule ondansetron 4 mg tablet,disintegrating 4 mg PO Q6H PRN (Reason: nausea and vomiting) Qty: 12 0RF estradiol 0.075 mg/24 hr patch weekly hydroxyzine HCl 25 mg tablet desvenlafaxine succinate 50 mg tablet extended release 24 hr PO Print Language: Monegasque Instructions: Viral Syndrome (ED) Additional Instructions: Symptomatic care: * Rest, hydration, and throat soothing measures (e.g., warm teas, saltwater gargles, lozenges). * Use of OTC medications as needed for sore throat or cough (e.g., acetaminophen, ibuprofen, antihistamines as appropriate for allergies). Monitor for worsening symptoms: * Return to ED or follow up with PCP if symptoms worsen or new symptoms develop (e.g., high fever, difficulty swallowing, shortness of breath, or rash). Infection control: * Continue good hand hygiene. 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 Referrals: Rojelio Donato MD [Primary Care Provider, Family Practice] - 1 week Discharge Date/Time: 06/11/25 16:38
[2025-06-11 16:07] LABS: SARS-CoV-2 Ag NEGATIVE (NEGATIVE)
== END 2025-06-11 16:38 | disposition home or self-care (01) ==
PROVIDERS: Physician Assistant; Emergency Provider Emergency Medicine; PCP Family Medicine
DX: B34.9 Viral infection, unspecified (principal); J02.9 Acute pharyngitis, unspecified
CPT/HCPCS: 87070; 87804; 87811; 87880; 99283

== ENCOUNTER 2025-07-12 12:25 | Emergency (ER) | payer OTHER, SELFPAY ==
--- OUTSIDE RECORDS SUMMARY | 2025-04-25 12:15 | XMS_ITS ---
Author Organization The [facility] in [place] Address [address] [place] [address] Care Team Providers Care Key Holder Name Role Phone Caesar Donato Primary Care Provider REASON FOR VISIT diet Encounters Encounter Location Date Provider Diagnosis [facility] [address] [place] [address] 04/25/2025 Caesar Donato Plan Of Treatment No Information Progress Notes * Connie SALCIDO MDOB: 4 (29 yo F)Acc No.[id number]:04/25/2025 UNLOCKED PROGRESS NOTE Progress Note Patient: Connie ARITA :?Rojelio Donato (TTC), MDDOB:1995???Age: 29 Y???Sex:FemaleDate:04/25/2025Phone:[phone]:[address], [address], [place], [id number] Subjective: * Chief Complaints: * 1 . Diet. * Medical History: Objective: * Vitals: Assessment: Plan: * Treatment: * * Electronic signature of Caesar Donato MD, [id number] on 07/12/2025 at 12:37 PM EST Sign off status: PendingVisit Status:?N/S N/C (No Show/No Charge) * Provider: Matty Donato MD (TTC) Date: 0 04/25/2025 Generated for Printing/Faxing/eTransmitting on:?07/12/2025 12:37 PM EST
--- OUTSIDE RECORDS SUMMARY | 2025-05-06 10:00 | XMS_ITS ---
Author Organization [facility] in [place] Address [address] [place] [address] Care Team Providers Care Can Coverer Name Role Phone Caesar Dnoato Primary Care Provider REASON FOR VISIT pulled skin off hernia incision Encounters Encounter Location Date Provider Diagnosis [id number] [place] [address] 05/06/2025 Caesar Donato Plan Of Treatment No Information Progress Notes * Connie SALCIDO MDOB: 4 (29 yo F)Acc No.[id number]:05/06/2025 UNLOCKED PROGRESS NOTE Progress Note Patient: Connie ARITA :?Rojelio NicoleTTC), MDDOB:1995???Age: 29 Y???Sex:FemaleDate:05/06/2025Phone:[phone]:[address], [address], [place], [id number] Subjective: * Chief Complaints: * 1 . Pulled skin off hernia incision. * Medical History: Objective: * Vitals: Assessment: Plan: * Treatment: * * Electronic signature of Caesar Donato MD, [id number] on 07/12/2025 at 12:37 PM EST Sign off status: PendingVisit Status:?CANCPHONE (Cancelled Phone) * Provider: [facility] [place] Date: 0 05/06/2025 Generated for Printing/Faxing/eTransmitting on:?07/12/2025 12:37 PM EST
--- OUTSIDE RECORDS SUMMARY | 2025-06-29 13:45 | XMS_ITS | Encounter Summary ---
Author Organization [facility] Address [address] [place] [address] Care Team Providers Care Plant Senior Manager Name Role Phone Rojelio Donato MD Primary Care Provider [phone] Reason for Visit * ReasonCommentsPost-opPost Op: 2 month f/u , s/p 04/29/2025 robotic incisional hernia repair with mesh. Encounter Details DateTypeDepartmentCare Team (Latest Contact Info)Mosbjoxqdny48/22/2025 2:45 PM EDTOffice Visit [facility] [address] [place] [address] Tk Herrera MD [address] [place] [address] Postoperative visit (Primary Dx); Morbid obesity (CMS/HCC) Social History Tobacco UseTypesPacks/DayYears UsedDateSmoking Tobacco: NeverSmokeless Tobacco: Never Tobacco Cessation:Counseling Given: Not Answered Alcohol UseStandard Drinks/WeekCommentsDefer0 (1 standard drink = 0.6 oz pure alcohol)Humiliation, Afraid, Rape, and Kick questionnaireAnswerDate Recorded Within the last year, have you been afraid of your partner or ex-partner?No 06/29/2025Emotionally AbusedNot on file06/29/2025Physically AbusedNot on file 06/29/2025Sexually AbusedNot on file06/29/2025PHQ-2AnswerDate RecordedPatient Health Questionnaire-2 Zfxoi451CommentsNoSex and Gender InformationValueDate RecordedSex Assigned at ZjckuLtmdnu94/22/2025 10:54 AM EDT Legal SskBaejjy05/29/2022 9:39 PM EDTGender YjkkinixXgdnbe71/22/2025 10:54 AM EDTSexual OrientationHeterosexual or Lfzypqir71/22/2025 10:54 AM EDTdocumented as of this encounter Last Filed Vital Signs Vital SignReadingTime TakenCommentsBlood Szboomrv478/9606/29/2025 2:40 PM EDT Fwpco38314/22/2025 2:40 PM DRMXpsblihcipz60.6 ??C (97.8 ??F)06/29/2025 2:40 PM EDTRespiratory Nqmj0463 2:40 PM EDTOxygen Jzjgfddyyr62%06/29/2025 2:40 PM EDTInhaled Oxygen Concentration--Xqnlfl694 kg (312 lb 9.6 oz)06/29/2025 2:40 PM EDTHeight--Body Mass Index59.0704/29/2025 11:12 AM EDTdocumented in this encounter Functional Status * BPAnswerDate of VgdfleecxzDgidja605/9606/29/2025 2:40 PM Ivett Diaz MA * PulseAnswerDate of HoikbirqxzVfkoww84278/22/2025 2:40 PM Ivett Diaz MA * Patient PositionAnswerDate of NypgtmbwmcKhbetrPshyoij02/22/2025 2:40 PM EDT Ivett Heck MA * Fall RiskQuestionAnswerDate of AssessmentAuthorWorried about fallin 06/29/2025 2:52 PM Ivett Diaz MAOne or more falls in the last year:No 06/29/2025 2:52 PM Ivett Diaz MAFeels unsteady when walkin 2:52 PM Ivett Diaz MA * BPAnswerDate of IezyqgjscyDycfmf011/9606/29/2025 2:40 PM Ivett Diaz MA * TempAnswerDate of VyjapxdqpeIwvssy51.81 2:40 PM Ivett Diaz MA * Temp srcAnswerDate of PrcpgdgnptJuwpinHebqfqgx92/22/2025 2:40 PM Ivett Diaz MA * PulseAnswerDate of HkidaseydwRfjqge60822/22/2025 2:40 PM Ivett Diaz MA * RespAnswerDate of ClbakyenlhEzmvzc6713/22/2025 2:40 PM Ivett Diaz MA * YyR2CbyfsdDheb of LjmsckpdxxWkdncs9203/22/2025 2:40 PM Ivett Diaz MA * Over the past 2 weeks, how often have you been bothered by any of the following problems?QuestionAnswerDate of AssessmentAuthorLittle interest or pleasure in doing thingsNot at all06/29/2025 2:52 PM Ivett Diaz MA Feeling down, depressed, or hopelessNot at all06/29/2025 2:52 PM Ivett Diaz MAPatient Health Questionnaire-2 Fsyam414 2:52 PM Ivett Diaz MA * BP LocationAnswerDate of AssessmentAuthorLeft arm06/29/2025 2:40 PM Ivett Diaz MA * Modified Malnutrition Screen Tool (MST)QuestionAnswerDate of AssessmentAuthor Have you been eating poorly because of a decreased appetite?No06/29/2025 2:52 PM Ivett Diaz MAHave you recently lost weight without trying?No 06/29/2025 2:52 PM Ivett Diaz MA * Patient PositionAnswerDate of DcqommhcgiWxlvezPcvrxbu27/22/2025 2:40 PM EDT Ivtet Heck MA documented as of this encounter Progress Notes * Tk Herrera MD - 06/29/2025 2:45 PM EDT Subjective Patient ID: Connie Salcido is a 29 y.o. female who presents for Post-op (Post Op: 2 month f/u ,s/p 04/29/2025 robotic incisional hernia repair with mesh./). HPI 29 years old morbid obesity female is status post robotic incisional hernia repair with mesh on April 29, 2025. She is tolerating full regular diet, normal bowel meant, without abdominal pain. Denies of fever or chills. Review of Systems Constitutional: Negative. HENT: Negative. Eyes: Negative. Respiratory: Negative. Cardiovascular: Negative. Gastrointestinal: Negative. Endocrine: Negative. Genitourinary: Negative. Musculoskeletal: Negative. Allergic/Immunologic: Negative. Neurological: Negative. Hematological: Negative. Objective Visit Vitals BP (!) 159/96 (BP Location: Left arm, Patient Position: Sitting, BP Cuff Size: Large adult) Pulse 104 Temp 36.6 ??C (97.8 ??F) (Temporal) Resp 16 Physical Exam Constitutional: Appearance: She is obese. HENT: Head: Atraumatic. Cardiovascular: Rate and Rhythm: Normal rate. Pulses: Normal pulses. Abdominal: General: Abdomen is flat. Palpations: Abdomen is soft. Comments: Incisions are dry, clean, intact. Without the abdominal wall bulging or erythema, induration. Musculoskeletal: Cervical back: Neck supple. Neurological: Mental Status: She is alert. Assessment/Plan Postoperative visit Follow-up as needed No diagnosis found. No orders of the defined types were placed in this encounter. No results found for this or any previous visit (from the past 36 hours). No follow-ups on file. documented in this encounter Plan of Treatment Not on file documented as of this encounter Visit Diagnoses Diagnosis Postoperative visit- Primary Morbid obesity (CMS/HCC) Morbid obesity documented in this encounter Care Teams Team MemberRelationshipSpecialtyStart DateEnd Date Rojelio Donato MD [facility] [place] [address] PCP - GeneralFamily Medicine03/21/25documented as of this encounter
--- OUTSIDE RECORDS SUMMARY | 2025-07-08 09:45 | XMS_ITS ---
Author Organization [facility] in [place] Address [address] [place] [address] Care Team Providers Care Quill Machine Tender Name Role Phone Caesar Donato Primary Care Provider REASON FOR VISIT congestion Encounters Encounter Location Date Provider Diagnosis [facility] [address] [place] [address] 07/08/2025 Caesar Donato Plan Of Treatment No Information Progress Notes * Connie SALCIDO MDOB: 4 (29 yo F)Acc No.[id number]:07/08/2025 UNLOCKED PROGRESS NOTE Progress Note Patient: Connie ARITA :?Rojelio Donato (TTC), MDDOB:1995???Age: 29 Y???Sex:FemaleDate:07/08/2025Phone:[phone]:[address], [address], [place], [id number] Subjective: * Chief Complaints: * 1 . Congestion. * Medical History: Objective: * Vitals: Assessment: Plan: * Treatment: * * Electronic signature of Caesar Donato MD, [id number] on 07/12/2025 at 12:36 PM EST Sign off status: PendingVisit Status:?CANCPHONE (Cancelled Phone) * Provider: Matty Donato MD (TTC) Date: Generated for Printing/Faxing/eTransmitting on:?07/12/2025 12:36 PM EST
[2025-07-12 12:31] VITALS: BP 180/124; PULSE 106; TEMP 37; O2SAT 99; BMI 58.6
--- OUTSIDE RECORDS SUMMARY | 2025-07-12 12:37 | XMS_ITS | Patient Health Record ---
Author Organization The [facility] in [place] Address [address] [place] [address] Care Team Providers Care 3D Technologist Name Role Phone Caesar Donato Primary Care Provider Allergies Allergen (clinical drug ingredient) Drug/Non Drug Allergy documented on EMR Reaction Allergy Type Onset Date Status meloxicam Meloxicam headache Drug Allergy Active Results Component Value Reference Range Notes COVID-19, Flu A+B IH Reviewed date:12/26/2024 07:31:03 PM Interpretation: Performing Lab: Notes/Report: COVID - FLU A+FLU B-Control+UA DIP NONAUTO WO MICRO ([id number]) - IN OFFICE Reviewed date:03/16/2025 06:47:02 PM Interpretation: Performing Lab: Notes/Report: COLORyellowCLARITYcloudyGLUCOSEnBILIRUBINnKETONEnSPECIFIC GRAVITY1.239IQTAD071++ LN1SLIBTNSuxcfuSJXOEJNXRRAGoJVQOVLEqXRSZFVHNL ESTERASE++COVID-19, Flu A+B IH Reviewed date:05/28/2025 03:35:41 PM Interpretation: Performing Lab: Notes/Report: COVID-FLU A-FLU B-Control+CBC AUTO DIFF Reviewed date:10/06/2024 08:50:29 PM Interpretation: Performing Lab: Notes/Report: [facility] ,White Blood Count9.84.0-11.0 10 3/uLRed Blood Count4.394.20-5.40 10 6/uL Itkktybhfc50.412.0-16.0 g/wBWrmcdhrlcu82.536.0-48.0 %Mean Corpuscular Klankv78.3 81.0-99.0 fLMean Corpuscular Wicrkhyofx75.526.7-34.0 pgMean Corpuscular HGB Conc 33.129.9-35.2 g/dLRed Cell Distribution Width12.411.0-15.0 %Platelet Boywz100 150-450 10 3/uLMean Platelet Volume9.99.5-13.5 fLNeutrophils Percent Auto69.2 43.0-75.0 %Lymphocytes Percent Auto23.820.5-60.0 %Monocytes Percent Auto6.51.7- 12.0 %Eosinophils Percent Auto0.10.9-7.0 %Basophils Percent Auto0.20.2-2.0 % Immature Granulocytes Pct Auto0.20.0-0.5 %Neutrophils Absolute Auto6.81.4-6.5 10 3/uLLymphocytes Absolute Auto2.31.2-3.8 10 3/uLMonocytes Absolute Auto0.60.3-0.8 10 3/uLEosinophils Absolute Auto0.00.0-0.7 10 3/uLBasophils Absolute Auto0.00.0- 0.1 10 3/uLImmature Granulocytes Abs Auto0.020.00-0.03 10 3/uLPerforming Lab:see noteML - [facility] LBPROF CHEM 8 (BAS METB) Reviewed date:10/06/2024 08:50:29 PM Interpretation: Performing Lab: Notes/Report: [facility] ,Wudqfr993130-225 mmol/LPotassium3.33.5-5.1 mmol/JEpexcqdl01523-380 mmol/LCarbon Ooanldr23.321.0-32.0 mmol/LAnion Gap10.1Dgytjzn0967-249 mg/dLBlood Urea Nitrogen 18.07.0-18.0 mg/dLCreatinine0.720.55-1.02 mg/dLEstimated GFR ( Kajal>60 >=60 mL/min/1.73m 2Estimated GFR (Non- Zehra>60>=60 mL/min/1.73m 2BUN Creatinine Ratio25.9Mbhfosn7.08.5-10.1 mg/dLPerforming Lab:see noteML - [facility] LBAMYLASE Reviewed date:03/16/2025 06:47:01 PM Interpretation: Performing Lab: Notes/Report: [facility] ,Guhfxhf9037-516 U/LPerforming Lab:see noteML - [facility] LBCBC AUTO DIFF Reviewed date:03/16/2025 06:47:01 PM Interpretation: Performing Lab: Notes/Report: [facility] ,White Blood Count8.74.0-11.0 10 3/uLRed Blood Count4.634.20-5.40 10 6/uL Rukdgyljrq75.012.0-16.0 g/xIAevhkuwmbd14.036.0-48.0 %Mean Corpuscular Mrpnhn49.7 81.0-99.0 fLMean Corpuscular Rizqsfwuqh39.226.7-34.0 pgMean Corpuscular HGB Conc 33.329.9-35.2 g/dLRed Cell Distribution Width12.511.0-15.0 %Platelet Udpeu414 150-450 10 3/uLMean Platelet Volume9.79.5-13.5 fLNeutrophils Percent Auto65.2 43.0-75.0 %Lymphocytes Percent Auto26.920.5-60.0 %Monocytes Percent Auto6.81.7- 12.0 %Eosinophils Percent Auto0.70.9-7.0 %Basophils Percent Auto0.20.2-2.0 % Immature Granulocytes Pct Auto0.20.0-0.5 %Neutrophils Absolute Auto5.71.4-6.5 10 3/uLLymphocytes Absolute Auto2.41.2-3.8 10 3/uLMonocytes Absolute Auto0.60.3-0.8 10 3/uLEosinophils Absolute Auto0.10.0-0.7 10 3/uLBasophils Absolute Auto0.00.0- 0.1 10 3/uLImmature Granulocytes Abs Auto0.020.00-0.03 10 3/uLPerforming Lab:see noteML - [facility] LBLIPASE Reviewed date:03/16/2025 06:47:01 PM Interpretation: Performing Lab: Notes/Report: [facility] ,Qpnbjy18.016.0-77.0 U/LPerforming Lab:see noteML - [facility] LB LIVER PROFILE Reviewed date:03/16/2025 06:47:01 PM Interpretation: Performing Lab: Notes/Report: [facility] ,Bilirubin Total0.40.2-1.0 mg/dLBilirubin Direct0.10.0-0.2 mg/dLAspartate Amino Aqwwzetbbke3626-02 U/LAlanine Zspqwpxddbdltkao6751-67 U/LAlkaline Ixawcxbcvdv66 46-116 U/LTotal Protein7.46.4-8.2 g/dLAlbumin Level3.43.4-5.0 g/dLGlobulin4.0 Albumin Globulin Ratio0.9Performing Lab:see noteML - [facility] LB PROF CHEM 8 (BAS METB) Reviewed date:03/16/2025 06:47:02 PM Interpretation: Performing Lab: Notes/Report: [facility] ,Eoewlx091712-563 mmol/LPotassium3.33.5-5.1 mmol/MRauvkakj38734-055 mmol/LCarbon Dftbzpt04.621.0-32.0 mmol/LAnion Gap9.0Zjhukmv5879-074 mg/dLBlood Urea Nitrogen 13.07.0-18.0 mg/dLCreatinine0.690.55-1.02 mg/dLEstimated GFR ( Kajal>60 >=60 mL/min/1.73m 2Estimated GFR (Non- Zehra>60>=60 mL/min/1.73m 2BUN Creatinine Ratio18.2Kinnjii7.58.5-10.1 mg/dLPerforming Lab:see noteML - [facility] LBUA RANDOM W or MICROSCOPIC Reviewed date:03/16/2025 06:47:02 PM Interpretation: Performing Lab: Notes/Report: [facility] ,Color UrineYELLOWYELLOWClarity UrineCLEARCLEARSpecific Arjay Urine1.025 1.005-1.025pH Urine6.05.0-9.0Protein UrineNEGATIVENEG/TRACE mg/dLGlucose Urine UANEGATIVENEGATIVE mg/dLBilirubin UrineNEGATIVENEGATIVEKetones UrineTRACE NEGATIVE mg/dLBlood UrineSMALLNEGATIVENitrite UrineNEGATIVENEGATIVEUrobilinogen Urine1.00.2-1.0 EU/dLLeukocyte Esterase UrineNEGATIVENEGATIVEWBC Urine0-2NONE SEEN #/HPFRBC Nunyc6-803-0 #/HPFBacteria UrineTRACENONE SEEN #/HPFMucus Urine NONE SEENNONE SEENSquamous Epithelial Cell UrineFEWNONE/RARE #/LPFCrystals Seen? None SeenNone Seen #/HPFCast Seen?NONE SEENNONE SEEN #/LPFUrine Culture IndicatedNOPerforming Lab:see noteML - [facility] LBINFLUENZA A AND B AG Reviewed date:06/12/2025 02:17:15 PM Interpretation: Performing Lab: Notes/Report: [facility] ,Influenza Virus A AntigenNegative cannot be ruled out. Flu A antigen in the sample may be below the detection limit of the test. Negative for Flu A protein antigen. Infection due to Flu A Influenza Virus B AntigenNegative Negative for Flu B protein antigen. Infection due to Flu B cannot be ruled out. Flu B antigen in the sample may be below the detection limit of the test. Performing Lab:see noteML - [facility] LBSTREPT SCREEN Reviewed date:06/12/2025 02:17:15 PM Interpretation: Performing Lab: Notes/Report: [facility] ,Strep A Antigen ScreenNegativePerforming Lab:see noteML - [facility] TGJRII-EzB-8 Ag* Reviewed date:06/12/2025 02:17:15 PM Interpretation: Performing Lab: Notes/Report: [facility] ,SARS-CoV-2 AgNEGATIVENEGATIVE (EUA) for use by authorized laboratories certified under circumstances exist justifying the authorization of Act, 21 U.S.C. 360bbb-3(b)(1), unless the declaration is the detection of proteins from SARS-CoV-2, not for any other terminated or authorization is revoked sooner. viruses or pathogens. The emergency use of this test is CLIA that meet the requirements to perform moderate or high emergency use of in vitro diagnostic tests for detection This test has not been FDA cleared or approved, but has been authorized by the FDA under an Emergency Use Authorization and/or diagnosis of Covid-19 under section 564(b)(1) of the complexity testing. This test has been authorized only for authorized for the duration of the declaration that Performing Lab:see noteML - [facility] LBUpper Respiratory Culture Reviewed date:06/15/2025 12:26:19 PM Interpretation: Performing Lab: Notes/Report: [facility] ,Upper Respiratory CultureSee Below For Report Upper Respiratory Culture Upper Respiratory CultureRoutine respiratory ollie Upper Respiratory Culture Upper Respiratory CulturePerformed at: CB - [facility] [place] Upper Respiratory Culture Upper Respiratory [address] [place], [place] [id number] Upper Respiratory Culture Upper Respiratory CultureLab Director: Marcell Godoy PhD, Phone: [phone] Upper Respiratory Culture Performing Lab:see note LC - [facility] LB SEE REPORT - Bioinformatics Software Engineer Id information not found for OBX-specific honey producer legend IGP,Aptima HPV,Age Gdln Reviewed date:12/26/2024 07:31:03 PM Interpretation: Performing Lab: Notes/Report: JAY JAY-NORMA VAGINA [facility] ,Age Gdln ACOG TestingNote. Martha Chen MD, Clinician Provided Cytology Information [address] [facility] [address] L-Low Normal,H-High Normal,LL-Alert Low,HH-Alert High FLAG LEGEND: TESTS RESULT FLAG UNITS REF RANGE LAB Jose BUCHANAN Ofe... 30-65 01 01 =G [facility] Performed at: <-Panic Low,>-Panic High,A-Abnormal,AA-Critical Abnormal No. of containers..01 ThinPrep Vial Source.............Vagina IGP, Aptima HPV, rfx 16/18,45Note. HPV Genotype Reflex Note 02 <-Panic Low,>-Panic High,A-Abnormal,AA-Critical Abnormal uterine cervix. It is not a diagnostic procedure and Jessica Bo, Sharepoint Engineer (ASCP) should not be used as the sole means of detecting cervical Test Methodology: Note 02 Satisfactory for evaluation. This liquid based ThinPrep(R) pap test was screened with Specimen adequacy: 02 FLAG LEGEND: L-Low Normal,H-High Normal,LL-Alert Low,HH-Alert High detection of premalignant and malignant conditions of the [address] [place] [address], [place] [address] The Pap smear is a screening test designed to aid in the DIAGNOSIS: 02 Martha Chen MD, Note: Note 02 . 02 occur. NEGATIVE FOR INTRAEPITHELIAL LESION OR MALIGNANCY. Criteria not met, HPV Genotype not performed. cancer. Both false-positive and false-negative reports do Performed at: 02 WB [facility] TESTS RESULT FLAG UNITS REF RANGE LAB the use of an image guided system. Performed by: 02 HPV AptimaNegativeNegative risk HPV types (16,18,31,33,35,39,45,51,52,56,58,59,66,68) Performed at: [facility] [address] [place], [place] [id number] This nucleic acid amplification test detects fourteen high- Relief Salesperson: Martah Chen MD, Phone: [phone] [address] [place] [phone] without differentiation. Relief Salesperson: Martha Chen MD, Phone: [phone] Performed at: =[facility] Performing Lab:[facility] LBCT head/brain wo con Reviewed date:10/06/2024 08:50:29 PM Interpretation: Performing Lab: Notes/Report: Source Facility: [place] [address] CT Scan Report Signed Patient: CONNIE SALCIDO MR#: [id number] : 1995 Acct:[id number] Age/Sex: 28 / F ADM Date: 10/06/24 Loc: ER Attending Dr: Ordering Physician: Jaki Whitman Date of Service: 10/06/24 Procedure(s): CT head/brain wo con Accession Number(s): [id number] cc: Valerie Donato M.D. [place] [address] Patient Name: CONNIE SALCIDO MRN: [id number] date: 1995 Sex: F Assigned Patient Location: ER Current Patient Location: ER Accession/Order Number: [id number] Exam Date: 10/06/2024 17:42 Report Date: 10/06/2024 [...] M.D. Signed By: 10/06/241847 DD/ 44 TD/TT: Utility Worker [place]:KAHLIL Qualitative* Reviewed date:10/06/2024 08:50:29 PM Interpretation: Performing Lab: Notes/Report: [facility] ,HCG QualitativeNEGATIVENEGATIVEPerforming Lab:see noteML - [facility] IRCXRZ-BcK-2 Ag* Reviewed date:10/06/2024 08:50:29 PM Interpretation: Performing Lab: Notes/Report: [facility] ,SARS-CoV-2 AgNEGATIVENEGATIVE authorized by the FDA under an Emergency [...] terminated or authorization is revoked sooner. Performing Lab:see noteML - [facility] LBINFLUENZA A AND B AG Reviewed date:10/06/2024 08:50:29 PM Interpretation: Performing Lab: Notes/Report: [facility] ,Influenza Virus A AntigenNegative below the detection limit of the test. Negative for Flu A protein antigen. Infection due to Flu A cannot be ruled out. Flu A antigen in the sample may be Influenza Virus B AntigenNegative Negative for Flu B protein antigen. Infection due to Flu B below the detection limit of the test. cannot be ruled out. Flu B antigen in the sample may be Performing Lab:see noteML - [facility] LBUA DIP NONAUTO WO MICRO (68569) - IN OFFICE Reviewed date:01/12/2025 03:48:29 PM Interpretation: Performing Lab: Notes/Report: COLORYellowCLARITYDarkGLUCOSENegBILIRUBINNegKETONENegSPECIFIC GRAVITY1.030BLOOD GgoBA0RTDSJAISmgJXJOZBCRTGMNPpjBYINJJQQnxBZVZYIHRZ ESTERASE++MR head/brain wo con Reviewed date:05/28/2025 03:35:41 PM Interpretation: Performing Lab: Notes/Report: Source Facility: [facility] [place] [address] [place] [address] Magnetic Resonance Report Signed Patient: CONNIE SALCIDO MR#: [id number] : 1995 Acct:[id number] Age/Sex: 29 / F ADM Date: 05/26/25 Loc: MRI Attending Dr: Valerie Donato M.D. Ordering Physician: Valerie Donato M.D. Date of Service: 05/26/25 Procedure(s): MR head/brain wo con Accession Number(s): [id number] cc: Valerie Donato M.D. The [place] [address] Patient Name: CONNIE SALCIDO MRN: [id number] date: 1995 Sex: F Assigned Patient Location: MRI Current Patient Location: MRI Accession/Order Number: [id number] Exam Date: 05/26/2025 14:15 Report Date: 05/26/2025 [...] Chery M.D. 05/26/2025 11:20 PM Dictation Location: [place] [address] Electronically authenticated by: [id number] Y Date: 05/26/2025 23:20 Dictated By: Ethan Chery M.D. Signed By: 05/26/252321 DD/ 19 TD/TT: Utility Worker [place]:CT abdomen pelvis w con Reviewed date:03/16/2025 07:00:23 PM Interpretation: Performing Lab: Notes/Report: Source Facility: [facility]-[address] [place] [address] [place] [address] CT Scan Report Signed Patient: CONNIE SALCIDO MR#: [id number] : 1995 Acct:[id number] Age/Sex: 29 / F ADM Date: 03/16/25 Loc: ER Attending Dr: Ordering Physician: Kiki Abrams M.D. Date of Service: 03/16/25 Procedure(s): CT abdomen pelvis w con Accession Number(s): [id number] cc: Valerie Donato M.D. [address] [address] Patient Name: CONNIE SALCIDO MRN: [id number] date: 1995 Sex: F Assigned Patient Location: ER Current Patient Location: ER Accession/Order Number: [id number] Exam Date: 03/16/2025 18:47 Report Date: 03/16/2025 [...] Abbasi M.D. 03/16/2025 6:51 PM Dictation Location: [place] [address] Electronically authenticated by: [id number] Y Date: 03/16/2025 18:51 Dictated By: Silver Abbasi M.D. Signed By: 03/16/251852 DD/ 50 TD/TT: Utility Worker [place]: Reason For Referral Diagnosis 1 Ventral hernia (K43. 9) Referral Organization [facility] Referring Provider First Name Caesar Referring Provider Last Name Kinga Referring Provider [facility] Referred Provider Gary Godwin Referred Provider Specialty General Surg yunier Referral Priority Routine Diagnosis 1 Ventral hernia (K43. 9) Referral Organization [facility] Referring Provider First Name Caesar Referring Provider Last Name [facility] Referring Provider [facility] Referred Provider Tk Herrera Referred Provider Specialty General Surg yunier Referral Priority Routine Reason MRI head/brain eleva bereket pressures Diagnosis 1 Hydrocephalus (G91.9 ) Referral Organization [facility] Referring Provider First Name Caesar Referring Provider Last Name patt Referring Provider [facility] Referred Provider Fabrizio Shah Referred Provider Specialty Neurosurgery Referral Priority Routine Medications Medication SIG (Take, Route, Frequency, Duration) Notes Start Date End Date Status Lljpumejwy-XZRA-Ehxoudsx 50-325-40 MG 1 tablet as needed Orally 3 times a day; Duration: 7 days As needed PRN 06/09/2025 ActivehydrOXYzine HCl 25 MG1 tablet as needed Orally qid; Duration: 10 days 5ActiveCyclobenzaprine HCl 10 MG1 tablet Orally tid; Duration: 30 days PRN5ActiveAmoxicillin-Pot Clavulanate 875-125 MG1 tablet Orally every 12 hrs; Duration: 10 days5ActiveAdipex-P 37.5 MG1 tablet before breakfast Orally Once a day5ActiveMaxalt 10 MG1 tablet Orally Once a day; Duration: 10 days5ActiveBenzonatate 200 MG1 capsule Orally Three times a day; Duration: 7 days5ActiveOndansetron 4 MG1 tablet on the tongue and allow to dissolve Orally Once a day; Duration: 30 gcuhAQK7805/31/2024 ActivePristiq 50 MG1 tablet Orally Once a day; Duration: 30 days5Active Social History Tobacco Use: Social History Observation Description Date Details (start date - stop date) Never Smoker NA - NA Tobacco Use/Smoking Question Answer Notes Patient is a nonsmoker Alcohol Screen (Audit-C) Question Answer Notes Did you have a drink containing alcohol in the p ast year? No Vmdtoe7YfjotpjexlgdgkKzgwnpnbOSYBP-H (Standard) Question Answer Notes Did you have a drink containing alcohol in the p ast year? No Syhlmw6GwkpwulebwqsxcGisivnyy Problems Problem Type SNOMED Code ICD Code Onset Dates Problem Status W/U Status Risk Notes Problem Contracture of joint of right ankle (disorder) (731056268325945) Contracture, right ankle (M24.571) ActiveconfirmedProblemContracture of joint of left ankle (disorder) (735770719795768)Contracture, left ankle (M24.572)ActiveconfirmedProblemPlantar fascial fibromatosis (86709683)Plantar fascial fibromatosis (M72.2)Active confirmedProblemAchilles bursitis (640992943)Achilles tendinitis, right leg (M76.61)ActiveconfirmedProblemAchilles bursitis (948577713)Achilles tendinitis, left leg (M76.62)ActiveconfirmedProblemHydrocephalus (140825605)Hydrocephalus (G91.9)ActiveconfirmedProblemObesity (989096531)Obesity (E66.9)Activeconfirmed ProblemAnxiety (11825239)Anxiety (F41.9)ActiveconfirmedProblemDepression (174271757)Depression (F32.9)ActiveconfirmedProblemMigraine (70854095)Migraine (G43.909)ActiveconfirmedProblemVentral hernia (069835578)Ventral hernia (K43.9) ActiveconfirmedProblemAcute sinusitis (84211377)Acute sinusitis (J01.90)Active confirmedProblemRight lower quadrant pain (768708767)Right lower quadrant abdominal pain (R10.31)ActiveconfirmedProblemSciatica (22613476)Sciatica (M54.30)ActiveconfirmedProblemCompression of brain (82850885)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)ActiveconfirmedProblemPain in left foot (913777220284672) Left foot pain (M79.672)ActiveconfirmedProblemAcute gastroenteritis (46543615) Acute gastroenteritis (K52.9)ActiveconfirmedProblemArthralgia of the pelvic region and thigh (091628524)Hip pain, acute, right (M25.551)Activeconfirmed Vital Signs Temperature 98.3 degrees Fahrenheit 05/16/2025 Blood pressure ebithmswt46 mm Hg06/15/20256530Volndy38 in06/15/2025lood pressure cvncuamg878 mm Hg06/15/20259871Csercg544.6 lbs1MI59.81 kg/m206/15/2025 Encounters Encounter Location Date Provider Diagnosis [address] [address] 08/04/2024 Caesar Hoy Obesity E66.9 and Sciatica M54.[address] [address] 09/10/2024 Caesar Hoy Hip pain, acute, rig ht M25.[address] [address] 09/20/2024 Caesar Hoy Hip pain, acute, rig ht M25.551 and Depression F32.[address] [address] 10/18/2024 Caesar Hoy Cough R05.9 and Influenza J11.[address] [address] 12/01/2024 Caesar Hoy Migraine G43.909 and Obesity E66.[address] [address] 12/02/2024 Caesar Hoy Migraine G43.[address] [address] 01/12/2025 Caesar Hoy Dysuria R30.[address] [address] 03/10/2025 Caesar Hoy Urinary urgency R39. 15 ; Depression F32.9 and Anxiety F41.[address] [address] 03/24/2025 Caesar Hoy UTI (urinary tract infection), uncomplicated N39.[address] [facility] [address] [place] [facility] [place] [address] 04/15/2025 Caesar Hoy Migraine G43.[address] [facility] [address] [place] [facility] [place] [address] 05/16/2025 Caesar Hoy Cough R05.9 and Acut e bronchitis, unspecified organism J20.9 [facility] [address] [place] [facility] [place] [address] 05/31/2025 Caesar Hoy Migraine G43.909 [facility] [address] [place] [facility] [place] [place] [address] 06/15/2025 Caesar Hoy Acute bronchitis, unspecified organism J20.9 and Chiari I malformation G93.5 [facility] [address] [place] [facility] [place] [address] 07/12/2024 Caesar Hoy Obesity E66.9 [facility] [address] [place] [facility] [place] [place] [address] 10/27/[address] [facility] [place] [facility] [address] 11/09/2024Doug HoyObesity E66.9B[facility] [place] [facility] [address]/Doug HoyMigraine G43.909[facility] [place] [facility] [address]/Doug HoyBVH [facility] [place] [address]/ Caesar HoyObesity E66.9B[facility] [place] [address]/Doug HoyObesity E66.9B[facility] [place] [facility] [address]/05/2025Doug HoyVentral hernia K43.9B[facility] [place] [address]/06/2025 Caesar HoyVentral hernia K43.9BDelta [facility] [place] [address]/12/2024Doug HoyObesity E66.9BDelta [facility] [place] [address]/Doug HoSCL [facility] [place] [address]/ Caesar HoyBKind[facility] [place] [address] 05/31/2025Doug HoyHydrocephalus G91.9 and Migraine G43.909[facility] [place] [address]/09/2024Doug HoyObesity E66.9 [facility] [place] [address] 06/08/2025Doug HoyMigraine G43.909[facility] [facility] [place] [address]/10/2024Doug HoyObesity E66.9BDelta [facility] Hospital[address] [place] [address]/01/2025Doug Hoy [facility] [place] [address] 06/15/2025Doug HoSCL [facility] [place] [address]/05/2025Doug HoyChiari I malformation G93.5BVH [facility] [facility] [place] [address]/05/2025Doug HoSCL [facility] [place] [address]/ Caesar [facility] [facility] [address]/12/2024Caesar Mendezpatt Assessments Encounter Date Diagnosis (ICD Code) Assessment Notes Treatment Notes Treatment Clinical Notes Section Notes 03/24/2025 UTI (urinary tract infection), u ncomplicated (ICD-10 - N39.0) Drink plenty of water. Avoid drinks like coffee, alcohol and soft frinks, as these can irritate your bladder and aggravate your frequent or urgent need to urinate. Apply a warm heating pad to your abdomen to minimize bladder pressure or discomfort. You have been prescribed antibiotics for a urinarytract infection. Antibiotics may bother your stomach, so try taking them with a light meal (unless instructed otherwise by your pharmacist). It is important to take them until they are finished. You can use zryw-yck-sjkezbx acetaminophen or ibuprofen if needed for pain. You should follow up with your Primary Care Physician or return to clinic if not improving in the next 3-5 days.04/15/2025 Hydrocephalus (ICD-10 - G91.9)04/15/2025Migraine (ICD-10 - G43.909)05/16/2025 Cough (ICD-10 - R05.9)05/31/2025Migraine (ICD-10 - G43.909)06/15/2025ute bronchitis, unspecified organism (ICD-10 - J20.9)Rest and drink more liquids, especially water. You may use a humidifier or vaporizer to help keep the drainage moist. Lqmz-oxt-wuczypx Nasal Saline may help the stuffy and runny nose. Use Ibuprofen and or Tylenol as needed for fever, chills, body aches or pain. Children 5 years old should not be given oxxr-gpn-avqdgsm cough and cold medications such as guaifenesin and dextromethorphan. If you're over age 5, you may try dbti-jlv-kmsgwgd cold medications such as guaifenesin and dextromethorphan, or multi-symptom cold reliever such as Dayquil to help reduce the symptoms. Antibiotics have been prescribed. You should take these until completed and follow the directions. Antibiotics can sometimescause upset stomach, and in rare cases, serious [...] go to the emergency room or call [phone] I malformation (ICD-10 - G93.5)needs weight loss due to chiari Obesity (ICD-10 - E66.9)11/09/2024Obesity (ICD-10 - E66.9)12/01/2024Migraine (ICD-10 - G43.909)12/29/2024Obesity (ICD-10 - E66.9)02/22/2025Obesity (ICD-10 - E66.9) 03/16/2025Ventral hernia (ICD-10 - K43.9)03/17/2025Ventral hernia (ICD-10 - K43.9)04/11/2025Obesity (ICD-10 - E66.9)05/31/2025Hydrocephalus (ICD-10 - G91.9) 05/31/2025Migraine (ICD-10 - G43.909)06/08/2025Obesity (ICD-10 - E66.9) 06/08/2025Migraine (ICD-10 - G43.909)06/09/2025Obesity (ICD-10 - E66.9) 06/16/2025hiari I malformation (ICD-10 - G93.5)08/04/2024Obesity (ICD-10 - E66.9)08/04/2024Sciatica (ICD-10 - M54.30)09/10/2024Hip pain, acute, right (ICD- 10 - M25.551)09/20/2024Depression (ICD-10 - F32.9)09/20/2024Hip pain, acute, right (ICD-10 - M25.551)02/10/2025Cough (ICD-10 - R05.9)12/01/2024Obesity (ICD- 10 - E66.9)12/01/2024Migraine (ICD-10 - G43.909)12/02/2024Migraine (ICD-10 - G43.909)01/12/2025Dysuria (ICD-10 - R30.0)03/10/2025Depression (ICD-10 - F32.9) 03/10/2025Urinary urgency (ICD-10 - R39.15)03/24/2025Dysuria (ICD-10 - R30.0) 03/10/2025nxiety (ICD-10 - F41.9)10/18/2024Influenza (ICD-10 - J11.1)05/16/2025 Acute bronchitis, unspecified organism (ICD-10 - J20.9)Rest and drink more liquids, especially water. You may use a humidifier or vaporizer to help keep th e drainage moist. Jlyu-cje-pcijbhp Nasal Saline may help the stuffy and runny nose. Use Ibuprofen and or Tylenol as needed for fever, chills, body aches or pain. Children 5 years old should not be given uzvz-wja-qhjmddi cough and cold medications such as guaifenesin and dextromethorphan. If you're over age 5, you may try dvie-aea-bhgdyuz cold medications such as guaifenesin and dextromethorphan, or multi-symptom cold reliever such as Dayquil to help reduce the symptoms. Antibiotics have been prescribed. You should take these until completed and follow the directions. Antibiotics can sometimescause upset stomach, and in rare cases, serious [...] go to the emergency room or call [phone] and drink more liquids, especially water. You may use a humidifier or vaporizer to help keep the drainage moist. Auiz-fxq-ehnwheg Nasal Saline may help the stuffy and runny nose. Use Ibuprofen and or Tylenol as needed for fever, chills, body aches or pain. Children 5 years old should not be given vnlb-qwz-ihufnzj cough and cold medications such as guaifenesin and dextromethorphan. If you're o tate age 5, you may try vqta-sde-uyzbcfu cold medications such as guaifenesin and dextromethorphan, or multi-symptom cold reliever such as Dayquil to help reduce the symptoms. Follow up with your Primary Care Provider or return to clinic if symptoms do not improve within 3-5 days. If you develop severe symptoms such as shortness of breath, repeated vomiting, coughing up blood, or chest pain you genaro uld go to the emergency room or call 911.04/15/2025OtherTake NSAIDs as needed for pain. Discussed avoiding headache triggers and improiving diet and sleep h abits to prevent headaches. Plan Of Treatment Pending [...] End Date [employer] [place] [employer] [address] [place] [address] [id number] Shanna Salcido - patient is the wmgzdra93 2022 Medications Administered Medication Instructions Date of Administration Dosage Notes Kenalog-40 jr88Otcwgor-6956/26/202480 mgKetorolac Scwdystsjcwo13/07/202360 mg 60Ketorolac Uiiociialfzs51/23/520853 ku58Hrxfwatvt Giuifqtkszni54/23/068658 mg Ketorolac Cojkvuciolqj90/26/795980 mgKetorolac Eiqbhnhqgjhn93/26/376256 mg Ketorolac Nzwizbhleobz52/27/976655 mgKetorolac Huwwwsptajsl58/08/918393 mg Ketorolac Jfjoczdopkmi61/23/572577 mgOndansetron HCl mgOrphenadrine Hzlfmka91 ip39Mzhkqzidgavg Gqppxkt620 mgOrphenadrine Citrate mgPromethazine 25mg425 mgPromethazine 25mg525 mg Promethazine 25mg525 mgPromethazine, 25 mg mg25 Promethazine, 25 mg uw17Pvxtfphfuxke, 25 mg0 mg Medical (General) History Medical History History [...] transplantation of bone marrow aspirate 04/09/2019 Gallbladder v8Wpwywuxfkqwy hysterectomy with cystoscopy, bilateral salpingectomy 04/10/2023Hospitalization History Reason Date(Month/Year) see above
--- OUTSIDE RECORDS SUMMARY | 2025-07-12 12:37 | XMS_ITS | Clinical Summary ---
Author Organization [employer] [facility] Address [id number] [address] [place] [address] Care Team Providers Care Plumber Assistant Name Role Phone Rojelio Donato MD Primary Care Provider [phone] Allergies Active AllergyReactionsCriticalityNoted XtstYovjwsobWxxzfphuiDxuxwlwx08/25/2020 Medications MedicationSigDispense QuantityRefillsLast FilledStart DateEnd DateStatus cyproheptadine (PERIACTIN) 4 mg tablet Take 4 mg by mouth once daily at bedtime. Take half pillActive magnesium oxide (MAG-OX) 400 mg tablet Take 400 mg by mouth 2 (two) times a day.Active vit-iron fum-folic ac 65 mg iron- 1 mg tablet Take 1 tablet by mouth daily.Active sertraline (ZOLOFT) 100 mg tablet Take 50 mg by mouth daily.Active docusate sodium (COLACE) 100 mg capsule Take 1 capsule (100 mg total) by mouth 2 (two) times a day. 14 capsule 03/19/2020Active Additional Information Patient not taking.Reported on 03/31/2020 ibuprofen (ADVIL,MOTRIN) 800 mg tablet Take 1 tablet (800 mg total) by mouth every 8 (eight) hours as needed (cramping). 60 tablet 03/19/2020Active Additional Information Patient not taking.Reported on 03/31/2020 acetaminophen (TYLENOL) 325 mg tablet Take 650 mg by mouth every 6 (six) hours as needed for pain.Active Active Problems ProblemNoted DateDiagnosed DateDepression affecting nvhlumpae39/04/2020 Overview (03/11/2020): Currently on Zoloft 100mg daily Rh negative state in antepartum period, third faynoekih05/02/2020 Overview (03/09/2020): 01/21/20 type and screen: A Negative Rhogam administered 01/21/20 Request for pmvgztgirbzgp03/02/2020 Overview (03/09/2020): Consent signed 02/28/20 RLTCS and BTL scheduled for 03/17/20 Maternal care for other (suspected) abnormality and damage, not applicable or jjetrkssdtv14/02/2020History of flvjroq1303/02/2020 Overview (03/02/2020): Op note reviewed, pLTCS. Scanned in media tab Desires repeat . TOLAC form signed care in third sqymtdqgg32/25/2020 Overview (03/11/2020): Transfer of care from Dr. Calderón at 35w6d ANEL of based on 8w3d US completed on 08/24/2020 GC/CT negative Hep C/HepBSAg/HIV/RPR neg GC/CT neg Varicella/rubella immune Rh neg/neg Hgb electrophoresis negative HbA1c 4.8 Pap normal (hx of LSIL and/or ASCUS based off scanned records) 3hr GTT 85/160/126/82 Class 3 severe obesity in adult03/01/2020 Overview (03/01/2020): 1hr GCT 148 - 3hr GTT Chronic hypertension affecting tfmejykft11/24/2020 Overview (03/11/2020): S/p MFM consult: Baby ASA [...] after re-review of records on 03/11/2020 Encounters DateTypeDepartmentCare UcblJrmmhaxqnym36/29/2025 12:56 PM EDT - 05/06/2025 5:34 PM EDTEmergency [facility] [address] [place] [address] Gary Gómez DO Abrasion of abdominal wall, initial encounter (Primary Dx) Discharge Disposition: Home05/06/20254780Rflasd44/04/2025Travelfrom Last 3 Months Immunizations ImmunizationAdministration DatesNext DueDTaP, Ikxstxgqqpz47/09/1998,05/02/1995, 10/31/1994,07/26/1994,03/18/1994HPV Vjswyuprlrby00/02/2009,10/18/2008,01/01/2008 Hep A, 2 Dose10/18/2008,01/01/2008Hep B, Adolescent or Lqcmkdifw58/25/1995, 11/18/1994,03/18/1994HiB05/02/1995,10/31/1994,07/26/1994,03/18/1994Influenza (IM) Preservative Free06/27/2009Influenza, Im Trivalent Vktohhhvimwm75/10/2009, 07/13/2004MMR03/02/1999,05/02/1995Meningococcal IGH1C7401/01/2008Polio, Atepmpzouvp51/09/1998,05/02/1995,10/31/1994,07/26/1994,03/18/1994Rho (D) IG IM 01/21/2020Rho (D) Immune Aohklihf86/11/9511Awyi23/17/2007 Family History Medical HistoryRelationNameCommentsCongenital heart diseaseDaughterCancer Maternal GrandmotherArthritisMotherBlood ClotsMotherDepressionMotherHeart diseaseMotherHyperlipidemiaMotherRelationNameStatusCommentsDaughterMaternal GrandmotherDeceasedMother Social History Tobacco UseTypesPacks/DayYears UsedDateSmoking Tobacco: NeverSmokeless Tobacco: NeverAlcohol UseStandard Drinks/WeekCommentsNot Currently0 (1 standard drink = 0.6 oz pure alcohol)[place] Depression ScaleAnswerDate Recorded [place] Depression Scale Uhvvf01603/31/2020The thought of harming myself has occurred to me.Hardly ever03/31/2020ChildcareAnswerDate Recorded LzxzxseumPwbrjux03/12/2019EmploymentAnswerDate RecordedEmploymentUnknown 02/17/2019Hunger ScreeningAnswerDate RecordedWithin the past 12 months we worried whether our food would run out before we got money to buy more.Never True05/06/2025Within the past 12 months the food we bought just didn't last and we didn't have money to get more.Never True05/06/2025Purpose - LifeAnswerDate RecordedPurpose and direction in ldwuUtgfaqf99/11/2021CommentsNoSex and Gender InformationValueDate RecordedSex Assigned at BirthNot on fileLegal Sex Dksxxg5004/13/2015 11:48 AM EDTGender IdentityNot on fileSexual OrientationNot on file Last Filed Vital Signs Vital SignReadingTime TakenCommentsBlood Djajmvll663/8205/06/2025 5:23 PM EDT Dvhbi578405/06/2025 5:23 PM UHLZepcfzjpjug32.8 ??C (98.2 ??F)05/06/2025 12:58 PM EDTRespiratory Wxpg580605/06/2025 5:23 PM EDTOxygen Qporpripei57%05/06/2025 5:23 PM EDTInhaled Oxygen Concentration--Hdfltt288.9 kg (306 lb 4.8 oz)05/06/2025 12:58 PM IWHUjlcas437.9 cm (5' 1 )05/06/2025 12:58 PM EDTBody Mass Index57.87 05/06/2025 12:58 PM EDT Plan of Treatment Health MaintenanceDue DateLast DoneCommentsAdult BMI Follow Up Plan2011 DTaP,Tdap and Td Vaccines (7 - Td or Tdap), 06/16/1998, 05/02/1995, Additional history existsDepression Bylfjeqqe65 COVID-19 Vaccine ( season), 12/03/2021, 10/25/2021Influenza Zwvwfoz75/510/07/2022, 06/27/2009, 10/18/2008, Additional history existsAdult BMI Pbqdutuvb88Tobacco Pygncqvom51Pap Smear04804/ Medical Devices Not on file Procedures Procedure NamePriorityDate/TimeAssociated DiagnosisCommentsCT ABDOMEN AND PELVIS W CRUMZOTH10/29/2025 3:30 PM EDT CBC WITH AUTO ALVYZPUEWELTLDFA91/29/2025 2:10 PM EDT EXTRA TUBES DUONG TOP ON JQBVlqoshu92/29/2025 2:09 PM EDT EXTRA TUBES BLUE NWHTnfjfig41/29/2025 2:09 PM EDT EXTRA IVOVEOybppoy37/29/2025 2:09 PM EDT COMPREHENSIVE METABOLIC COMHFMZYX65/29/2025 2:09 PM EDT C-REACTIVE UKMHFDSKVFY27/29/2025 2:09 PM EDT PROTIME & AKGQgqgdta50/04/2025 3:49 PM EDT 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 BASIC METABOLIC MYKBFJkyuoun27/04/2025 3:49 PM EDT 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 CBC WITH AUTO RTIGELXILJNIVpporhn42/04/2025 3:49 PM EDT 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 MRSA PCR NASAL DLQULgarbwq70/04/2025 3:49 PM EDT 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 from Last 3 Months Results * CT abdomen and pelvis with contrast (05/06/2025 3:30 PM EDT)Anatomical Region LateralityModalityBody, Abdomen, Body CoveraN/AComputed TomographySpecimen (Source)Anatomical Location / LateralityCollection Method / VolumeCollection TimeReceived Time05/06/2025 3:34 PM EDT Narrative 05/06/2025 3:46 PM [...] to as low as reasonably achievable. Comparisons: ??07/28/2012. ?? Findings: Lung bases are clear. There is [...] intravenous administration of contrast material. Sagittal and coronalreformatted [...] Shalom Shultz MD on 05/06/2025 3:46 PM Authorizing ProviderResult TypeResult StatusMichael Gail Gómez [facility] CT ORDERABLESFinal Result * (ABNORMAL) CBC auto differential (05/06/2025 2:10 PM EDT) Only the most recent of2 resultswithin the time period is included. ComponentValueRef RangeTest MethodAnalysis TimePerformed AtPathologist Signature WBC10.24 - 11 x10E9/L05/06/2025 2:22 PM [facility]TR[facility] RBC Count4.753.8 - 5.2 X10E12/L05/06/2025 2:22 PM EDTPSELECT [facility] SOUTHHemoglobin14.211.7 - 15.5 g/dL05/06/2025 2:22 PM EDTPSELECT [facility] SOUTHHematocrit42.035 - 47 %05/06/2025 2:22 PM EDTPSELECT [facility] SOUTHMCV8880 - 100 fL05/06/2025 2:22 PM EDTPSELECT [facility] SOUTHMCH30.027 - 34 pg05/06/2025 2:22 PM EDTPSELECT [facility] SOUTHMCHC33.932 - 36 g/dL05/06/2025 2:22 PM EDTPSELECT [facility] SOUTHRDW13.411.5 - 15 %05/06/2025 2:22 PM EDTPSELECT [facility] SOUTHPlatelet Qolyr100791 - 450 X10E9/L05/06/2025 2:22 PM EDT [facility]MPV7.97 - 12 fL05/06/2025 2:22 PM EDT [facility]ITALNeutrophils %69.1%05/06/2025 2:22 PM EDT [facility]ITALLymphocytes %22.7%05/06/2025 2:22 PM EDT [facility]ITALMonocytes %7.1%05/06/2025 2:22 PM EDT [facility]ITALEosinophils %0.7%05/06/2025 2:22 PM EDT [facility]ITALBasophils %0.4%05/06/2025 2:22 PM EDT [facility]ITALNeutrophils Absolute (A)7.1(H)1.5 - 6.6 10*3/uL05/06/2025 2:22 PM EDTPSELECT [facility] SOUTHLymphocytes Absolute2.31.0 - 3.5 10*3/uL05/06/2025 2:22 PM EDTPSELECT [facility] SOUTHMonocytes Absolute0.70.0 - 0.9 10*3/uL05/06/2025 2:22 PM EDTRIHEALTH BETHESDA NOR[facility] HOSPITALEosinophils Absolute0.10.0 - 0.4 10*3/uL05/06/2025 2:22 PM EDTRIHE[facility] B[facility] HOSPITALBasophils Absolute0.00.0 - 0.2 10*3/uL 05/06/2025 2:22 PM [facility]ITALDifferential Type AUTOMATED MMZKWXOTXGAK15/29/2025 2:22 PM [facility] Specimen (Source)Anatomical Location / LateralityCollection Method / Volume Collection TimeReceived TimeBloodVenous blood / UnknownVenipuncture / Unknown 05/06/2025 2:10 PM EDT05/06/2025 2:11 PM EDT Narrative Authorizing ProviderResult TypeResult StatusMichael P Neverauskas DOLAB BLOOD ORDERABLESFinal ResultPerforming OrganizationAddressCity/State/ZIP CodePhone Number [address] [place] [address], [place] * Duong Top On Ice (05/06/2025 2:09 PM EDT)ComponentValueRef RangeTest Method Analysis TimePerformed AtPathologist SignatureExtra TubeAuto Resulted 05/06/2025 4:01 PM EDCLEVEL[facility] AKRON GENERALpecimen (Source) Anatomical Location / LateralityCollection Method / VolumeCollection Time Received TimeBloodVenous blood / Livwmhu7605/06/2025 2:09 PM EDT05/06/2025 2:12 PM EDT Narrative Authorizing ProviderResult TypeResult StatusMichael P Neverauskas DOLAB BLOOD ORDERABLESFinal ResultPerforming OrganizationAddressty/State/ZIP CodePhone Number [address] [place] [address], [place] * Light Blue Top (05/06/2025 2:09 PM EDT)ComponentValueRef RangeTest Method Analysis TimePerformed AtPathologist SignatureExtra TubeAuto Resulted 05/06/2025 4:01 PM EDCLEVEL[facility] CLINIC [facility]RON GENERALpecimen (Source) Anatomical Location / LateralityCollection Method / VolumeCollection Time Received TimeBloodVenous blood / Qyzenag0605/06/2025 2:09 PM EDT05/06/2025 2:12 PM EDT Narrative Authorizing ProviderResult TypeResult StatusMichael P Neverauskas DOLAB BLOOD ORDERABLESFinal ResultPerforming OrganizationAddFirst [facility]/State/ZIP CodePhone Number [address] [place] [address], [place] * (ABNORMAL) C-reactive protein (05/06/2025 2:09 PM EDT)ComponentValueRef Range Test MethodAnalysis TimePerformed AtPathologist SignatureC REACTIVE PROTEIN1.8 (H)<=0.7 mg/dL05/06/2025 2:34 PM EDTRIHE[facility] Specimen (Source)Anatomical Location / LateralityCollection Method / Volume Collection TimeReceived TimeBloodVenous blood / UnknownVenipuncture / Unknown 05/06/2025 2:09 PM EDT05/06/2025 2:11 PM EDT Narrative Authorizing ProviderResult TypeResult StatusMichael P Neverauskas DOLAB BLOOD ORDERABLESFinal ResultPerforming OrganizationAddFirst [facility]/State/[facility] CodePhone Number [address] [place] [address], [place] * (ABNORMAL) Comprehensive metabolic panel (05/06/2025 2:09 PM EDT)Component ValueRef RangeTest MethodAnalysis TimePerformed AtPathologist SignatureSODIUM 807203 - 146 mmol/L05/06/2025 2:34 PM EDTPSELECT [facility] POTASSIUM4.03.5 - 5.0 mmol/L05/06/2025 2:34 PM EDTPSELECT [facility] SOUTHCHLORIDE10598 - 109 mmol/L05/06/2025 2:34 PM EDTPSELECT [facility] SOUTHCARBON CLZFJLR6177 - 32 mmol/L05/06/2025 2:34 PM EDTPSELECT [facility] - [facility] SOUTHANION GAP75 - 15 mmol/L05/06/2025 2:34 PM EDT [facility]ITALBLOOD UREA FRJZTEAZ533 - 23 mg/dL05/06/2025 2:34 PM EDTPSELECT [facility] SOUTHCREATININE0.940.40 - 1.00 mg/dL 05/06/2025 2:34 PM [facility]ITALComment:METHOD TRACEABLE TO IDMS XNAXFQMPFTJXKBL9890 - 99 mg/dL05/06/2025 2:34 PM EDT [facility]ITALCALCIUM8.68.5 - 10.5 mg/dL05/06/2025 2:34 PM [facility]ITALTOTAL PROTEIN7.66.0 - 8.0 g/dL 05/06/2025 2:34 PM [facility]OSPITALALBUMIN3.93.2 - 5.3 g/dL05/06/2025 2:34 PM [facility]OSPITALALKALINE VFRCAWUYAYC8836 - 130 U/L05/06/2025 2:34 PM [facility]ITALAST25<=41 U/L05/06/2025 2:34 PM [facility] ALT36(H)<=31 U/L05/06/2025 2:34 PM [facility] BILIRUBIN,TOTAL0.70.3 - 1.2 mg/dL05/06/2025 2:34 PM [facility] HOSPITALEGFR Non-Race Qpqmdthdh48>=60 ml/min/1.73sq.m005/06/2025 2:34 PM [facility]ITALComment: eGFR not reported due to non-numeric value for Creatinine. Reported eGFR is based on the CKD-EPI 2020 equation that does not use a race coefficient. Specimen (Source)Anatomical Location / LateralityCollection Method / Volume Collection TimeReceived TimeBloodVenous blood / UnknownVenipuncture / Unknown 05/06/2025 2:09 PM EDT05/06/2025 2:11 PM EDT Narrative Authorizing ProviderResult TypeResult StatusMichaericardo Gómez DOLAB BLOOD ORDERABLESFinal ResultPerforming OrganizationAddressCity/State/ZIP CodePhone Number [facility] [address] [place] [address], * Mrsa Pcr nasal swab (04/11/2025 3:49 PM EDT)ComponentValueRef RangeTest Method Analysis TimePerformed AtPathologist SignatureMRSA PCR NASALNegativeNegative 04/11/2025 11:56 PM [facility] LABORATORYSpecimen (Source) Anatomical Location / LateralityCollection Method / VolumeCollection Time Received VbqnCohm76/04/2025 3:49 PM EDT04/11/2025 3:51 PM EDT Narrative Authorizing ProviderResult TypeResult StatusTk Herrera MDMICROBIOLOGY - GENERAL ORDERABLESFinal ResultPerforming OrganizationAddressCity/State/ZIP Code Phone Number [facility] [address] [place] [address], * Protime & INR (04/11/2025 3:49 PM EDT)ComponentValueRef RangeTest Method Analysis TimePerformed AtPathologist JpwisoxicTDCCIWH08.79.8 - 13.2 sec 04/11/2025 10:54 PM [facility] LABORATORYINR1.00.9 - 1.2 04/11/2025 10:54 PM [facility] LABORATORYSpecimen (Source) Anatomical Location / LateralityCollection Method / VolumeCollection Time Received TimeBloodVenous blood / UnknownVenipuncture / Ihrgrps8504/11/2025 3:49 PM EDT04/11/2025 3:51 PM EDT Narrative Authorizing ProviderResult TypeResult Trini Herrera MDLAB BLOOD ORDERABLES Final ResultPerforming OrganizationAddressCity/State/ZIP CodePhone Number [facility] [address] [place] [address], * Basic Metabolic Panel (04/11/2025 3:49 PM EDT)ComponentValueRef RangeTest MethodAnalysis TimePerformed AtPathologist KuaejadrfMRTCKV301905 - 146 mmol/L 04/11/2025 11:21 PM [facility] LABORATORYPOTASSIUM3.73.5 - 5.0 mmol/L04/11/2025 11:21 PM [facility] LABORATORYCHLORIDE 34251 - 109 mmol/L04/11/2025 11:21 PM [facility] [place] JRFJUTD4698 - 32 mmol/L04/11/2025 11:21 PM [facility] LABORATORYANION GAP85 - 15 mmol/L04/11/2025 11:21 PM [facility] LABORATORYBLOOD UREA PDEYYYTK88 - 23 mg/dL04/11/2025 11:21 PM [facility] LABORATORYCREATININE0.690.40 - 1.00 mg/dL04/11/2025 11:21 PM [facility] LABORATORYComment:METHOD TRACEABLE TO IDMS USOJYXHSNOZVMWQ4345 - 99 mg/dL04/11/2025 11:21 PM [facility] LABORATORYCALCIUM8.78.5 - 10.5 mg/dL04/11/2025 11:21 PM [facility]ORYEGFR Non-Race Dependent>90>=60 ml/min/1.73sq.m004/11/2025 11:21 PM [facility]ORATORYComment: Reported eGFR is based on the CKD-EPI 2020 equation that does not use a race coefficient. Specimen (Source)Anatomical Location / LateralityCollection Method / Volume Collection TimeReceived TimeBloodVenous blood / UnknownVenipuncture / Unknown 04/11/2025 3:49 PM EDT04/11/2025 3:51 PM EDT Narrative Authorizing ProviderResult TypeResult StatusTk BASSETT BLOOD ORDERABLES Final ResultPerforming OrganizationAddressCity/State/ZIP CodePhone Number [facility] [address] [place] [address], from Last 3 Months Insurance Advance Directives * Full Code (Latest Code Status on File) Date ActivatedDate InactivatedComments03/17/2020 9:05 AM03/19/2020 1:38 PM * Full Code Date ActivatedDate InactivatedComments03/09/2020 9:23 PM03/10/2020 1:18 PM Care Teams Team MemberRelationshipSpecialtyStart DateEnd Date Rojelio Donato MD PCP [facility]Dec[facility]01/24/20
--- OUTSIDE RECORDS SUMMARY | 2025-07-12 12:37 | XMS_ITS | Clinical Summary ---
Author Organization [facility] Address [address] [place] [address] Care Team Providers Care Director Of Occupational Health Name Role Phone Rojelio Donato MD Primary Care Provider Allergies Active AllergyReactionsCriticalityNoted DateCommentsHydromorphoneNausea Only 04/20/2025HydrocodoneNausea Only10/30/2015MeloxicamHeadache,OtherMedium 11/02/2019 Other Reaction(s): Other: See Comments headache headache Medications MedicationSigDispense QuantityRefillsLast FilledStart DateEnd DateStatus syasqqdvuu-pboowzmnybqmd-qrua (Fioricet) 50-300-40 mg capsule Take 1 capsule by mouth every 8 (eight) hours if needed.5Active estradiol (Climara) 0.075 mg/[address] 1 patch on the skin once a weekActive cyclobenzaprine (Flexeril) 10 mg tablet every 8 (eight) hours.5Active oxyCODONE (Roxicodone) 5 mg immediate release tablet Indications:Incisional hernia, without obstruction or gangreneTake 1 tablet (5 mg) by mouth every 6 (six) hours if needed for severe pain (8-10 pain score) for up to 15 doses. 15 tablet 5Active Active Problems ProblemNoted DateDiagnosed DateIncisional hernia, without obstruction or ogwxbaic75/23/2025 Encounters DateTypeDepartmentCare UqmaGbuafxkmkzj33/22/2025 2:45 PM EDTOffice Visit [facility] [address] [place] [address] Tk Herrera MD Postoperative visit (Primary Dx); Morbid obesity (CMS/HCC)05/11/2025 2:00 PM EDTOffice Visit [facility] [address] [place] [address] Tk Herrera MD Incisional hernia, without obstruction or gangrene (Primary Dx); Morbid obesity (CMS/HCC)05/02/2025Telephone [facility] Surgery [facility] [address] [place] [address] Nara Baker MA 04/29/2025 1:00 PM EDT - 04/29/2025 5:00 PM EDTSurgery [facility] Main Operating Room [address] [place] [address] Tk Herrera MD ROBOTIC INCISIONAL HERNIA REPAIR WITH MESH04/29/2025 12:31 PM EDTAnesthesia Event [facility] Main Operating Room [address] [place] [address] Naldo Zuniga MD Cox, Jonathan D, [facility] 04/29/2025 10:56 AM EDT - 04/29/2025 6:29 PM EDTHospital Encounter [facility] Main Operating Room [address] [place] [address] Tk Herrera MD Incisional hernia, without obstruction or gangrene Discharge Disposition: Home or Self Care (01)04/29/20251459Afjbgp32/13/2025Travel from Last 3 Months Social History Tobacco UseTypesPacks/DayYears UsedDateSmoking Tobacco: NeverSmokeless Tobacco: Never Tobacco Cessation:Counseling Given: Not Answered Alcohol UseStandard Drinks/WeekCommentsDefer0 (1 standard drink = 0.6 oz pure alcohol)Humiliation, Afraid, Rape, and Kick questionnaireAnswerDate Recorded Within the last year, have you been afraid of your partner or ex-partner?No 06/29/2025Emotionally AbusedNot on file06/29/2025Physically AbusedNot on file 06/29/2025Sexually AbusedNot on file06/29/2025PHQ-2AnswerDate RecordedPatient Health Questionnaire-2 Igkoo148CommentsNoSex and Gender InformationValueDate RecordedSex Assigned at RkcbrMbbsgl22/22/2025 10:54 AM EDT Legal RuuZnnsks48/29/2022 9:39 PM EDTGender KxuoddggXaslux87/22/2025 10:54 AM EDTSexual OrientationHeterosexual or Kgonitca60/22/2025 10:54 AM EDT Last Filed Vital Signs Vital SignReadingTime TakenCommentsBlood Mlmuboux144/9606/29/2025 2:40 PM EDT Qhfnb41003/22/2025 2:40 PM XJWHtcimhuxaqo66.6 ??C (97.8 ??F)06/29/2025 2:40 PM EDTRespiratory Bhgk6140 2:40 PM EDTOxygen Pcbqchfzae99%06/29/2025 2:40 PM EDTInhaled Oxygen Concentration--Jjjebb831 kg (312 lb 9.6 oz)06/29/2025 2:40 PM MCIUexetw090.9 cm (5' 1 )04/29/2025 11:12 AM EDTBody Mass Index59.07 04/29/2025 11:12 AM EDT Plan of Treatment Health MaintenanceDue DateLast DoneCommentsVaricella Vaccines (1 of 2 - 13+ 2- dose series)2006dult Nghnlnw26HPV/Zztzak0110/15/2023 COVID-19 Vaccine ( season)/07/2022, 12/03/2021, 10/25/2021Influenza Vaccine (#1)/07/2022, 06/27/2009, 10/18/2008, Additional history existsDepression Xcpkolykb63/ervical Cancer Bgvywzfma85/15/2028Pap Smear/Zoster Vaccines (1 of 2) 2043HIB XtfdkckfFmnbjzazo46/25/1995, 10/31/1994, 07/26/1994, Additional history existsIPV FuqkffbeKbtnchixb49/09/1998, 05/02/1995, 10/31/1994, Additional history existsMeningococcal VaccineAged Out01/01/2008No longer eligible based on patient's age to complete this topicHPV VaccinesCompleted 05/10/2009, 10/18/2008, 01/01/2008Meningococcal B VaccineAged OutNo longer eligible based on patient's age to complete this topicPneumococcal Vaccine: Pediatrics (0 to 5 Years) and At-Risk Patients (6 to 64 Years)Aged OutNo longer eligible based on patient's age to complete this topicRotavirus VaccinesAged Out No longer eligible based on patient's age to complete this topic Medical Devices ImplantedTypeAreaManufacturerDevice IdentifierShelf Expiration DateModel / Serial / LotMesh,Surcigal,Progrip,[id number] - [id number] Implanted:Qty: 1 on 04/29/2025 by [facility]k [facility]/A: AbdomenMEDTRONIC [id number]/ [id number] / / [id number] Procedures Procedure NamePriorityDate/TimeAssociated DiagnosisCommentsPR AN ELECTIVE ENDOTRACHEAL GFZPEXNjfbfbb26/22/2025 12:44 PM EDT REPAIR, HERNIA, VENTRAL, ROBOT-MNBNOBDQ54/22/2025 12:33 PM EDT Incisional hernia, without obstruction or gangrene POCT GLUCOSE METER UNSOLICITED NYDWVHBWltfwpc38/22/2025 11:36 AM EDT from Last 3 Months Results * [place] AN ELECTIVE ENDOTRACHEAL AIRWAY (04/29/2025 12:44 PM EDT) Naldo Trujillo MD - 04/29/2025 12:44 PM EDT Naldo Zuniga MD 04/29/2025 6:44 PM Airway Date/Time: 04/29/2025 12:44 PM Reason: elective Airway not difficult General Information and Staff Patient location during procedure: OR Anesthesiologist: Naldo Zuniga MD Resident/HOSPITAL ADMISSIONS OFFICER/CAA: Tra Ochoa MD Performed: resident/HOSPITAL ADMISSIONS OFFICER/CAA Patient Condition Indications for airway management: anesthesia [...] 1 Number of other approaches attempted: 0 Authorizing ProviderResult TypeResult StatusAndrew Casabianca MDANESTHESIA ORDERABLESFinal Result * POCT glucose meter (04/29/2025 11:36 AM EDT)ComponentValueRef RangeTest Method Analysis TimePerformed AtPathologist SignatureGlucose WEJ0880 - 105 mg/dL 04/29/2025 11:52 AM [facility]TF[facility])Comment:ngrothaSpecimen (Source)Anatomical Location / LateralityCollection Method / VolumeCollection TimeReceived TimeBloodCapillary blood specimen / Zxstiyk0404/29/2025 11:36 AM EDT04/29/2025 11:52 AM EDT Narrative [facility] ([facility]) - 04/29/2025 11:52 AM EDT Waived Testing in the ED is performed under the ED CLIA certificate #[id number]. Authorizing ProviderResult TypeResult StatusTk BASSETT BLOOD ORDERABLES Final ResultPerforming OrganizationAddressCity/State/ZIP CodePhone Number [facility] ([facility]) [address] [place] [address] from Last 3 Months Insurance Advance Directives * Full Code (Latest Code Status on File) Date ActivatedDate InactivatedComments04/29/2025 11:10 AM04/29/2025 8:29 PM Care Teams Team MemberRelationshipSpecialtyStart DateEnd Date Rojelio Donato MD [address] [facility] [place] [address] PCP - GeneralFamily Medicine03/21/25
--- OUTSIDE RECORDS SUMMARY | 2025-07-12 12:37 | XMS_ITS | Clinical Summary ---
Author Organization [facility] Address [facility] [place] [address] Care Team Providers Care Front Desk Person Name Role Phone Noah Walton DO Unavailable [phone] Rojelio Donato MD Unavailable [phone] Allergies Active AllergyReactionsCriticalityNoted DateCommentsMeloxicamOther: See Comments 04/26/2022 headache Medications MedicationSigDispense QuantityRefillsLast FilledStart DateEnd DateStatus FLUoxetine (PROZAC) 10 mg capsule Take 10 mg by mouth once daily.Active Phentermine HCl 37.5 mg capsule Take 37.5 mg by mouth once daily.04/18/2022ctive naratriptan (AMERGE) 2.5 mg tablet Take 2.5 mg by mouth once daily.04/21/2022ctive acetaminophen 325 mg-caffeine 40 mg-butalbital 50 mg (FIORICET) per capsule as needed.03/19/2022ctive acetaminophen-codeine (TYLENOL-COD #3) 300-30 mg per tablet Take 1 tablet by mouth every 6 hours as needed.04/22/2022ctive tiZANidine (ZANAFLEX) 4 mg tablet Take 8 mg by mouth as needed.03/01/2022ctive Encounters DateTypeDepartmentCare YmzaWmlihbyqbhp64/08/2025Transcribe Orders Referring Physician [address] [place] [address] Rojelio Donato MD Migraine with aura, not intractable, without status migrainosus (Primary Dx); Hydrocephalus, unspecified type (HCC)from Last 3 Months Social History Tobacco UseTypesPacks/DayYears UsedDateSmoking Tobacco: NeverSmokeless Tobacco: Never Tobacco Cessation:Counseling Given: Not Answered Area Deprivation IndexAnswerDate RecordedNational Score (1-100), lower number is lower vfeu046109/21/2022State Score (1-10), lower number is lower riskNot on file 3Data from: https://www.neighborhoodatlas.[facility]/. Last address used for qdwyajrlwci[address]CommentsNoSex and Gender InformationValueDate RecordedSex Assigned at BirthNot on fileLegal Sex Vnckpo6804/23/2022 9:34 AM EDTGender IdentityNot on fileSexual OrientationNot on file Last Filed Vital Signs Vital SignReadingTime TakenCommentsBlood Fztsprrx273/8404/26/2022 1:36 PM EDT Kpdfl54795/19/2022 1:36 PM EDTTemperature--Respiratory Rate--Oxygen Saturation 98%04/26/2022 1:36 PM EDTInhaled Oxygen Concentration--Opeqnd615.8 kg (295 lb) 05/16/2022 2:03 PM UYUSxdwhp918.4 cm (5')05/16/2022 12:56 PM EDTBody Mass Index 57.6109 12:56 PM EDT Plan of Treatment DateTypeDepartmentCare Team (Latest Contact Info)Gamhevkkgvh28/06/2026 1:00 PM ESTOffice Visit Neurology [address] [place] [address] [place] [address] [place] [address] Migraine with aura, not intractable, without status migrainosus [G43.109]Health MaintenanceDue DateLast DoneCommentsAnxiety Lacsixasb21/07/2012Depression Fjcqpjzjr87/07/2012HIV Nqtkcrzmp97/07/2012Hepatitis C Sqoljmznq23/07/2012 Cervical Cancer Srmivvhar09/07/2015DTaP,Tdap,Td Vaccine (7 - Td or Tdap) , 06/16/1998, 05/02/1995, Additional history existsCovid-19 Vaccine ( season)503/, 10/25/2021Influenza Vaccine (#1)51, 10/18/2008, 07/13/2004Hepatitis B VaccineCompleted 05/02/1995, 11/18/1994, 03/18/1994HPV FdyxmnnQgfxkactc13/02/2009, 10/18/2008, 01/01/2008 Insurance Care Teams Team MemberRelationshipSpecialtyStart DateEnd Date Noah Walton DO [address] [place] [address] ReferringOb/Gyn04/23/22 Rojelio Donato MD [address] [place] [address] ReferringFamily Pcujjuxe41/8/25
--- OUTSIDE RECORDS SUMMARY | 2025-07-12 12:37 | XMS_ITS | Clinical Summary ---
Author Organization [facility] Healthcare Address [address] [place] [address] Care Team Providers Care Chemical Radiation Technician Name Role Phone Rojelio Donato MD Primary Care Provider [phone] Allergies Active AllergyReactionsCriticalityNoted VuidYfsigdvqRycjqbrkdkzKutrt69/22/2016 KilnxwzluFurmkpjoWjkizw93/19/2022 Other Reaction(s): Other: See Comments headache Medications MedicationSigDispense QuantityRefillsLast FilledStart DateEnd DateStatus Fioricet 50-300-40 MG capsule Take 1 capsule by mouth every 4 (four) hours if needed for headaches.Active phentermine (Adipex-P) 37.5 MG tablet Take 37.5 mg by mouth in the morning. Take before meals.4Active estradiol (Climara) 0.05 MG/24HR Indications:Sweating abnormality,Status post hysterectomy,Vaginal drynessPlace 1 patch over 7 days on the skin 1 (one) time per week 12 patch 3015Active estradiol (Climara) 0.075 MG/24HR Indications:Status post hysterectomy,Vaginal drynessPlace 1 patch over 7 days on the skin 1 (one) time per week 12 patch 304//512024/6Active Family History Medical HistoryRelationNameCommentsCancerMaternal GrandmotherHypertension Maternal GrandmotherHeart diseaseMotherHypertensionMotherMental illnessMother RelationNameStatusCommentsMaternal GrandmotherDeceasedMother Social History Tobacco UseTypesPacks/DayYears UsedDateSmoking Tobacco: NeverSmokeless Tobacco: Never Tobacco Cessation:Counseling Given: Not Answered Alcohol UseStandard Drinks/WeekCommentsNot Currently0 (1 standard drink = 0.6 oz pure alcohol)CommentsNoSex and Gender InformationValueDate RecordedSex Assigned at BirthNot on fileLegal EpfSuawix38/15/2023 11:47 PM EDTGender IdentityNot on fileSexual OrientationNot on file Last Filed Vital Signs Vital SignReadingTime TakenCommentsBlood Zoukrpmm245/70012/21/2024 3:05 PM EDT Pulse--Temperature--Respiratory Rate--Oxygen Saturation--Inhaled Oxygen Concentration--Jvxgkt948 kg (297 lb 1.9 oz)12/21/2024 3:05 PM JXYZwnirw660.9 cm (5' 1 )04/17/2023 10:26 AM EDTBody Mass Index56.14004/17/2023 10:26 AM EDT Plan of Treatment DateTypeDepartmentCare Team (Latest Contact Info)Ufzllehqlpq90/22/2026 4:00 PM EDTOffice Visit [facility] [address] [address] Noah Walton DO [address] [place], [place] [id number] Insurance Care Teams Team MemberRelationshipSpecialtyStart DateEnd Rojelio Donato MD PCP - GeneralFamily Medicine5/22/23
--- OUTSIDE RECORDS SUMMARY | 2025-07-12 12:37 | XMS_ITS | Encounter Summary ---
Author Organization [facility] Address [address] [place] [address] Care Team Providers Care Gis Physical Scientist Name Role Phone Rojelio Donato MD Primary Care Provider [phone] Encounter Details DateTypeDepartmentCare Team (Latest Contact Info)Wjjtmsgoaqg74/06/2024Clinisync Result Encounter [facility] External Department Unsolicited Carlito Walton DO [address] [place], [place] [id number] Social History Tobacco UseTypesPacks/DayYears UsedDateSmoking Tobacco: NeverSmokeless Tobacco: NeverAlcohol UseStandard Drinks/WeekCommentsNot Currently0 (1 standard drink = 0.6 oz pure alcohol)CommentsNoSex and Gender InformationValueDate RecordedSex Assigned at BirthNot on fileLegal BllPulzwf39/15/2023 11:47 PM EDT Gender IdentityNot on fileSexual OrientationNot on filedocumented as of this encounter Plan of Treatment DateTypeDenorth [facility] medical centerCare Team (Latest Contact Info)Rbupfrizuun77/22/2026 4:00 PM EDTOffice Visit [facility] [address] [place] [phone] Carlito Walton DO [address] [place] [address] documented as of this encounter Procedures Procedure NamePriorityDate/TimeAssociated DiagnosisCommentsUS PELVIS W/ WNGWOXFTPUQF57/06/2024 12:52 PM EST documented in this encounter Results * US PELVIS W/ TRANSVAGINAL (10/14/2023 12:52 PM EST)Anatomical RegionLaterality ModalityOtherSpecimen (Source)Anatomical Location / LateralityCollection Method / VolumeCollection TimeReceived Time10/14/2023 12:52 PM EST Narrative 10/14/2023 12:55 PM EST [facility] ?[address] ? [place] [address] ? Ultrasound Report ? Signed ? Patient: ABDIRAHMAN SALCIDO ?MR#: [id number] ?? : 1995 ?Acct:[id number] ?? Age/Sex: 27 / F ?ADM Date: 10/14/23 ?? Loc: [facility] ? Attending Dr: Carlito Walton D.O. ? Ordering Physician: Carlito Walton D.O. ?? Date of Service: 10/14/23 ?? Procedure(s): US pelvis w/ transvaginal ?? Accession Number(s): [id number] ? cc: Carlito Walton D.O.; Rojelio Donato M.D. ? [facility] ? [address] ? [place] [address] ? Patient Name: ?? ABDIRAHMAN SALCIDO ? MRN: [facility]:[id number] ? date: 1995 ?Sex: F ?? Assigned Patient Location: [facility] ?? Current [facility] Location: [facility] ?? Accession/Order Number: [id number] ?? Exam Date: 10/14/2023 ??10:55 ?Report Date: 10/14/2023 ??12:52 ? At the request of: ?? CARLITO ??ISABELLE ? Procedure: ??US pelvis w/ transvaginal ? EXAM: Pelvic ultrasound ? HISTORY: . PELVIC PAIN . ? COMPARISON: 03/14/2023 ? TECHNIQUE: Transabdominal and transvaginal scanning was performed ? FINDINGS: Scanning of the pelvis demonstrates absence of the uterus. ? Right ovary was not visualized. ? Left ovary measures 2 x 2.9 x 2.6 cm. Color-flow is noted. Follicles are ?? noted. ?? No masses are noted. ? No fluid is noted in the cul-de-sac. ? US/US pelvis w/ transvaginal ?? IMPRESSION: ? 1. Absent uterus. ?? 2. Normal-appearing left ovary with color flow. ?? 3. Right ovary was not identified. ? Electronically authenticated by: AYAD ??KALYAN ?? Date: 10/14/2023 ??12:52 ? Dictated By: ?Ayad Coughlin M.D. ? Signed By: ?10/14/231254 ? DD/ 51 ? TD/TT: ? Development Coach: Procedure Note Radiology, Radiologist, - 10/14/2023 [place] [address] Ultrasound Report Signed Patient: ABDIRAHMAN SALCIDO MMR#: [id number] : 1995Acct:[id number] Age/Sex: 27 FADM Date: 10/14/23 Loc: [facility] Attending Dr: Carlito Walton D.O. Ordering Physician: Carlito Walton D.O. Date of Service: 10/14/23 Procedure(s): US pelvis w/ transvaginal Accession Number(s): [id number] cc: Carlito Walton D.O.; Rojelio Donato M.D. The [address] [address] Patient Name: ABDIRAHMAN SALCIDO MRN: [id number] date: 1995 Sex: F Assigned Patient Location: [facility] Current Patient Location: [facility] Accession/Order Number: [id number] Exam Date: 10/14/2023 10:55 Report Date: 10/14/2023 [...] Dictated By: Ayad Coughlin M.D. Signed By:10/14/23 1255 DD/ 1252 TD/TT: Development Coach: Authorizing ProviderResult TypeResult StatusCorey Isabelle DOCLINISYNC IMAGINGFinal Result documented in this encounter Visit Diagnoses Not on filedocumented in this encounter Care Teams Team MemberRelationshipSpecialtyStart DateEnd Date Rojelio Donato MD PCP - GeneralFamily Medicine01/27/23documented as of this encounter
--- OUTSIDE RECORDS SUMMARY | 2025-07-12 12:43 | XMS_ITS | CCD ---
Author Organization [facility] Care Team Providers Care Search Director Name Role Phone Noah Walton DO [...] Unavailable ISABELLE ., DR ESTEBAN Consulting Unavailable AAYD BIGGS Consulting Unavailable MCKENZIE EDGAR Admitting Unavailable MCKENZIE EDGAR Attending Unavailable HOY ., DR PADILLA Primary Care Unavailable [place], DR AYAD Matamoros Consulting Unavailable MCKENZIE EDGAR Consulting Unavailable NATALIE BOX Consulting Unavailable [...] Unavailable Valerie Way MD Primary Care Provider [phone] NOAH WALTON Attending Unavailable NOAH WATLON Attending Unavailable VALERIE WAY Primary Care Unavailable ANNETTE TANNERIN Referring Unavailable VALERIE WAY Primary Care Unavailable JOSIE CRESPO Attending Unavailab DELFINA Rogers Attending Unavailable CIRO JIARADHAIN Admitting Unavailable ANNETTE TANNERIN Attending Unavailable CIRO, JIARADHAIN Referring Unavailable CIRO JIARADHAIN Referring Unavailable ANNETTE TANNERIN Attending Unavailable DELFINA TANNER Attending Unavailable Valerie Way MD Primary Care Provider [phone] Allergies Allergy ClassificationReported Allergen(s)Allergy TypeDate of OnsetReaction(s) Facility (4 sources)meloxicam; Translations: [MELOXICAM]Drug Frhkngl16-78-8916Hxgwi: See CommentsLakehealth [facility] (2 sources)Acetaminophen / HYDROcodone; Translations: [[place]][facility] (2 sources)HYDROmorphone; Translations: [Dilaudid][facility]rug [facility]ergyThe [facility] (1 source)meloxicamDrug AllergyThe [facility] (8 sources)meloxicamDrug Mikxzlz52-34-2999PmlqwwgdWMIE Healthcare Work Phone: (5 sources)HYDROcodone; Translations: [HYDROCODONE]Drug Gxjerwa61-29-5455Twyyx [facility] (1 source)HYDROmorphone; Translations: [HYDROMORPHONE]Drug Lslytyd35-10-4740 [facility] Repository (1 source)ALLERGIES NOT ON FILE; Translations: [ALLERGIES NOT ON FILE]Propensity to adverse reactions (disorder)[facility] Repository Medications Current Medications MedicationDrug Class(es)DatesSig (Normalized)Sig (Original)168 hr estradiol 0.38343 mg/hr transdermal system (8 sources)EstrogenStart: 12-21-2024 End: 15-93-7079qdnjmmaeh (Climara) 0.075 MG/24HR Indications: Status post hysterectomy , Vaginal dryness Place 1 patch over 7 days on the skin 1 (one) time per week 12 patch 3 12/21/2024 12/21/2025 ActiveStart: 09-13-2024 End: 82-26-0795mrupyuydf (Climara) 0.05 MG/24HR Indications: Sweating abnormality , Status post hysterectomy , Vaginal dryness Place 1 patch over 7 days on the skin 1 (one) time per week 12 patch 3 09/13/2024 ActivemetroNIDAZOLE 500 mg oral tablet (3 sources)Nitroimidazole AntimicrobialStart: 12-21-2024 End: 22-38-1801aeji 1 tablet by mouth in the morningmetroNIDAZOLE (Flagyl) 500 MG tablet Indications: BV (bacterial vaginosis) Take 1 tablet (500 mg) by mouth in the morning and 1 tablet (500 mg) before bedtime. Do all this for 7 days. 14 tablet 12/21/2024 12/28/2024 Activephentermine hydrochloride 37.5 mg oral tablet (8 sources)Sympathomimetic Amine AnorecticStart: 62-70-5105gpgv 1 tablet by mouth before mealtimephentermine (Adipex-P) 37.5 MG tablet Take 37.5 mg by mouth in the morning. Take before meals. 08/13/2024 ActiveStart: 91-72-3816itsh 1 capsule by mouth once dailyPhentermine HCl 37.5 mg capsule Take 37.5 mg by mouth once daily. 0 04/18/2022 ActiveComment on above:Take 37.5 mg by mouth once daily. Completed/Discontinued Medications MedicationDrug Class(es)DatesSig (Normalized)Sig (Original)acetaminophen 325 mg / butalbital 50 mg / caffeine 40 mg oral capsule (10 sources)Barbiturate, Central Nervous System Stimulant, MethylxanthineStart: 64-58-5675oyagtrseyquyq 325 mg-caffeine 40 mg-butalbital 50 mg (FIORICET) per capsule as needed. 0 03/19/2022ctivetake 1 capsule by mouth every four hours as needed for headacheFioricet 50-300-40 MG capsule Take 1 capsule by mouth every 4 (four) hours if needed for headaches.ActiveComment on above:as needed. acetaminophen 300 mg / codeine phosphate 30 mg oral tablet (2 sources)Opioid AgonistStart: 87-00-7495yryn 1 tablet by mouth every six hours as neededacetaminophen-codeine (TYLENOL-COD #3) 300-30 mg per tablet Take 1 tablet by mouth every 6 hours asneeded. 0 04/22/2022 ActiveComment on above:Take 1 tablet by mouth every 6 hours as needed.[id number] 200 actuat albuterol 0.09 mg/actuat metered dose inhaler (3 sources)beta2-Adrenergic AgonistStart: 12-30-2022 End: 98-22-2234xxio 2 puff(s) by inhalation every six hoursVentolin HFA 108 (90 Base) MCG/ACT inhaler Inhale 2 puffs every 6 (six) hours if needed. 12/30/2022 09/13/2024 Discontinuedcyclobenzaprine hydrochloride 10 mg oral tablet (3 sources)Muscle RelaxantStart: 02-19-2023 End: 23-74-0727igpi 1 tablet by mouth three times daily as needed for muscle spasmscyclobenzaprine (Flexeril) 10 MG tablet TAKE 1 TABLET BY MOUTH THREE TIMES DAILY NEEDED FOR MUSCLE SPASMS MUST LAST 30 DAYS 02/19/2023 09/13/2024 Discontinuedfluconazole 150 mg oral tablet (2 sources)Azole AntifungalStart: 12-21-2024 End: 05-71-5886jgxkiojyfxf (Diflucan) 150 MG tablet Indications: Yeast infection of the vagina Take 1 tablet (150 mg) by mouth 1 (one) time for 1 dose Repeat in 7 days if symptoms persist. 2 tablet 12/21/2024 12/21/2024 ExpiredFLUoxetine 10 mg oral capsule (2 sources)Serotonin Reuptake Inhibitortake 1 capsule by mouth once daily FLUoxetine (PROZAC) 10 mg capsule Take 10 mg by mouth once daily. 0 Active Comment on above:Take 10 mg by mouth once daily.naratriptan 2.5 mg oral tablet (2 sources)Serotonin-1b and Serotonin-1d Receptor AgonistStart: 25-65-4943jhmc 1 tablet by mouth once dailynaratriptan (AMERGE) 2.5 mg tablet Take 2.5 mg by mouth once daily. 0 04/21/2022 ActiveComment on above:Take 2.5 mg by mouth once daily.tiZANidine 4 mg oral tablet (2 sources)Central alpha-2 Adrenergic AgonistStart: 34-03-1482bzUEBqcnbx (ZANAFLEX) 4 mg tablet Take 8 mg by mouth as needed. 0 03/01/2022 ActiveComment on above:Take 8 mg by mouth as needed. Problems Active Problems Problem ClassificationProblemDateDocumented DateEpisodic/ChronicAbdominal hernia (3 sources)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; Translations: [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]Onset: 12-94-7913Wjreqmjb Administrative/social admission (1 source)Patient encounter status; Translations: [Dietary counseling and surveillance]EpisodicAsthma (1 source)Unspecified asthma, uncomplicated; Translations: [UNSPECIFIED ASTHMA UNCOMPLICATED]Onset: 79-14-2570LfsgdqnTdqxangbms associated with dizziness or vertigo (1 source)Dizziness and giddiness; Translations: [DIZZINESS AND GIDDINESS]Onset: 27-67-1394YceqvewsRkxwxnml; including migraine (4 sources)Headache; including migraine; Translations: [HEADACHE UNSPECIFIED] Onset: 58-89-6241Wnwxdolbdhpvl and screening for infectious disease (1 source)Encounter for screening for human papillomavirus (HPV); Translations: [ENC SCREENING HUMAN PAPILLOMAVIRUS]Onset: 78-02-5709JxpnwiriSzpvfgkailxf diseases of female pelvic organs (2 sources)Bacterial vaginosis; Translations: [Acute vaginitis]12-21-2024 EpisodicMycoses (2 sources)Candidiasis of vagina; Translations: [Yeast infection of the vagina] 13-20-7789RfsnxwknLrqwkw and vomiting (5 sources)Nausea; Translations: [Nausea with vomiting, unspecified]Onset: 98-76-8490VtiylrgnJlkag aftercare (1 source)Other mcc (current) drug therapy; Translations: [OTH BROKER IN CHARGE CURRENT DRUG THERAPY]Onset: 31-94-5190PvjcpqpbQjcpv aftercare (2 sources)Encounter for other specified surgical aftercare; Translations: [Encounter for other specified surgical aftercare]Onset: 07-27-1459QthkjgwfUftvp congenital anomalies (4 sources)Other congenital malformations of ribs; Translations: [OTHER CONGENITAL MALFORMATIONS RIBS]Onset: 31-83-3674WbfutkhEavwn female genital disorders (4 sources)Vaginal dryness; Translations: [Other specified noninflammatory disorders of vagina]98-77-4240HqqoqxbfTjcun nervous system disorders (1 source)Other chronic pain; Translations: [OTHER CHRONIC PAIN]Onset: 00-58-4555SfpabgqEoajf non-traumatic joint disorders (4 sources)Pain in left ankle and joints of left foot; Translations: [PAIN IN LEFT ANKLE]Onset: 63-19-5813VluqnolyBkpqt nutritional; endocrine; and metabolic disorders (2 sources)Body mass index 40+ - severely obese; Translations: [Morbid (severe) obesity due to excess calories]ChronicOther nutritional; endocrine; and metabolic disorders (1 source)Body mass index (BMI) 50.0-59.9, adult; Translations: [BODY MASS INDEX BMI 50.0-59.9 ADULT]Onset: 51-32-5348TwkcgxxAndpl nutritional; endocrine; and metabolic disorders (3 sources)Morbid (severe) obesity due to excess calories; Translations: [MORBID SEVERE OBES D/T EXCESS CHRISTY]Onset: 10-57-3512TiqmgqhBpikx nutritional; endocrine; and metabolic disorders (1 source)Abnormal weight gain; Translations: [Abnormal weight gain]Episodic Other screening for suspected conditions (not mental disorders or infectious disease) (4 sources)Encounter for screening for malignant neoplasm of cervix; Translations: [ENC SCREENING MALIG NEOPLASM CERV]Onset: 43-24-0793EgrrshznCrycj skin disorders (4 sources)Disorder of sweat gland; Translations: [Eccrine sweat disorder, unspecified]06-97-3049HnrswdlgDurby upper respiratory infections (5 sources)Acute pharyngitis, unspecified; Translations: [Acute upper respiratory infection, unspecified]Onset: 60-22-3487DdhhwbbiDzqlatgg codes; unclassified (1 source)Obstructive sleep apnea syndrome; Translations: [Obstructive sleep apnea (adult) (pediatric)]ChronicSuperficial injury; contusion (1 source)Abrasion of abdominal wall, initial encounter; Translations: [Abrasion of abdominal wall, initial encounter]Onset: 37-01-4666FdkutktfOywmkqaebjta (1 source)LOW BACK PAIN, UNSPECIFIED; Translations: [LOW BACK PAIN, UNSPECIFIED] Onset: 46-62-7160Nbvupljwerbf (1 source)Post-op ProblemOnset: 96-71-9215Tbjgwiqttmku (1 source)Post-op IssuesOnset: 14-53-2521Btaahlenxweu (2 sources)Post-op; Translations: [Post-op]Onset: 05-11-2025 Past or Other Problems Problem ClassificationProblemDateDocumented DateEpisodic/ChronicAbdominal pain (9 sources)Epigastric pain; Translations: [Unspecified abdominal pain]Onset: 83-00-2904XmpcidxmQskwxsyrdzf and hemorrhagic disorders (2 sources)Spontaneous ecchymoses; Translations: [Spontaneous ecchymoses]Onset: 62-31-0584RnscawwzBarmgfkwphxsc and procreative management (1 source)Tubal ligation status; Translations: [TUBAL LIGATION STATUS]Onset: 53-02-5041YbzqfjowBctwp connective tissue disease (4 sources)Pain in left foot; Translations: [PAIN IN LEFT FOOT]Onset: 03-21-2022 EpisodicOther connective tissue disease (5 sources)Posterior tibial tendinitis, left leg; Translations: [POSTERIOR TIBIAL TENDINITIS LT LEG]Onset: 52-72-0726JdalnzwuBuczv gastrointestinal disorders (1 source)Diarrhea, unspecified; Translations: [DIARRHEA UNSPECIFIED]Onset: 12-32-4532SqrziyinUphnz non-traumatic joint disorders (4 sources)Pain in left hip; Translations: [PAIN IN LEFT HIP]Onset: 07-09-2022 EpisodicOvarian cyst (4 sources)Unspecified ovarian cyst, unspecified side; Translations: [UNSPECIFIED OVARIAN CYST UNSP SIDE]Onset: 46-61-4236QmgpfeboBxsjucjt codes; unclassified (1 source)Acquired absence of other specified parts of digestive tract; Translations: [ACQ ABSENCE OTH PART DIGESTV TRACT]Onset: 42-68-4800Zfhmhybr Residual codes; unclassified (1 source)Other specified postprocedural states; Translations: [OTH SPECIFIED POSTPROCEDURAL STATES]Onset: 62-11-2633PrzlluqcJyezwfcpkug; intervertebral disc disorders; other back problems (1 source)Lumbago with sciatica, left side; Translations: [LUMBAGO WITH SCIATICA LEFT SIDE]Onset: 12-79-7994Afwjtmtr Results Test NameValueInterpretationReference RangeFacilityOffice Visiton 06-29-2025 Follow-up [id number] Connie Salcido 1995 F Date Provider Department Center 06/29/2025 [facility] Fl No family history on file Level of Service:68816 [place] POSTOP FOLLOW UP VISIT RELATED TO ORIGINAL PX Reason for Visit and Comments: Post-op [483] - Post Op: 2 month f/u , s/p 04/29/2025 robotic incisional hernia repair with mesh.[facility] HospitalOffice Visiton 27-04-1691Vkpdca-up [id number] Connie Salcido 1995 F Date Provider Department [facility] Second Fl No family history on file Level of Service:05844 [place] POSTOP FOLLOW UP VISIT RELATED TO ORIGINAL PX Reason for Visit and Comments: Post-op [483] - Patient is here for s/p 04/29/2025 robotic incisional hernia repair with mesh.NormalC[facility] Clinic [facility] GeneralC-REACTIVE PROTEINon 05-06-2025 REACTIVE PROTEIN1.8 mg/dLHigh<=0.7ProChildren'S Medical Center DallasComment on above:Performed By: #### CRP #### [facility] ([address] [address] VIRCBC WITH AUTO DIFFERENTIALon 60-60-5988UAUSABWYP ABSOLUTE COUNT (10*3/UL) BY AUTOMATED COUNT0.0 10*3/uLNormal0.0-0.2ProMedSilver Lake Medical CenterComment on above:Performed By: #### CBCA #### [address] [address] VIRBASOPHILS RELATIVE PERCENT BY AUTOMATED COUNT0.4 %Normal [facility] HospitalComment on above:Performed By: #### CBCA #### [facility] ([address] [address] VIRCELLAVISION DIFFERENTIAL TYPEAUTOMATED DIFFERENTIALNormal [facility] HospitalComment on above:Performed By: #### CBCA #### [address] [address] VIREosinophils (Bld) [#/Vol]0.1 10*3/uLNormal0.0-0.4[facility] HospitalComment on above:Performed By: #### CBCA #### [facility] ([address] [address] VIREOSINOPHILS RELATIVE PERCENT BY AUTOMATED COUNT0.7 %Normal [facility] HospitalComment on above:Performed By: #### CBCA #### [address] [address] VIRErythrocyte distribution width (RBC) [Ratio]13.4 %Normal 11.5-15ProChildren'S Medical Center DallasComment on above:Performed By: #### CBCA #### [facility] ([address] [address] VIRHematocrit (Bld) [Volume fraction]42.0 %Ogwxgu85-65 [facility] HospitalComment on above:Performed By: #### CBCA #### [facility] ([address] [address] VIRHemoglobin (Bld) [Mass/Vol]14.2 g/qPWkmstv24.7-15.5 [facility] HospitalComment on above:Performed By: #### CBCA #### [facility]ENTERFab[facility] ([address] [address] VIRLYMPHOCYTES ABSOLUTE COUNT (10*3/UL) BY AUTOMATED COUNT2.3 10*3/uLNormal1.0-3.5PBrown Memorial HospitalComment on above:Performed By: #### CBCA #### [facility] ([address] [address] VIRLYMPHOCYTES RELATIVE PERCENT BY AUTOMATED COUNT22.7 %Normal [facility] HospitalComment on above:Performed By: #### CBCA #### [facility] ([address] [address] VIRMCH (RBC) [Entitic mass]30.0 arCdutai83-71CpyKhkhcfChildren'S Medical Center DallasComment on above:Performed By: #### CBCA #### [facility] ([address] [address] VIRMCHC (RBC) [Mass/Vol]33.9 g/lCAtkuyt73-98DjnElrorzChildren'S Medical Center DallasComment on above:Performed By: #### CBCA #### [facility] ([address] [address] VIRMCV (RBC) [Entitic vol]88 bHIuyozs88-613AksLzmcpm [facility]remont HospitalComment on above:Performed By: #### CBCA #### [facility] ([address] [place] [address] VIRMONOCYTES ABSOLUTE COUNT (10*3/UL) BY AUTOMATED COUNT0.7 10*3/uLNormal0.0-0.9[facility] HospitalComment on above:Performed By: #### CBCA #### [facility] ([address] [place] [address] VIRMONOCYTES RELATIVE PERCENT BY AUTOMATED COUNT7.1 %Normal [facility] HospitalComment on above:Performed By: #### CBCA #### [facility] ([address] [place] [address] VIRNEUTROPHILS ABSOLUTE COUNT BY AUTOMATED COUNT7.1 10*3/uL High1.5-6.6ProChildren'S Medical Center DallasComment on above:Performed By: #### CBCA #### [facility] ([address] [place] [address] VIRNEUTROPHILS RELATIVE PERCENT BY AUTOMATED COUNT69.1 %Normal [facility] HospitalComfresenius medical care at carelink of [place] on above:Performed By: #### CBCA #### [facility] ([address] [place] [address] VIRPlatelet mean volume (Bld) [Entitic vol]7.9 fLNormal7-12 [facility] HospitalComment on above:Performed By: #### CBCA #### [facility] ([address] [place] [address] VIRPlatelets (Bld) [#/Vol]277 10*3/uKMfkxfn346-524PkzTgaczx [facility] HospitalComment on above:Performed By: #### CBCA #### [facility] ([address] [place] [address] VIRRBC COUNT4.75 X10E12/LNormal3.8-5.2PBrown Memorial HospitalComment on above:Performed By: #### CBCA #### [facility] ([address] [place] [address] VIRWBC (Bld) [#/Vol]10.2 10*3/uLNormal4-11ProChildren'S Medical Center DallasComment on above:Performed By: #### CBCA #### [facility] ([address] [place] [address] VIRCOMPREHENSIVE METABOLIC PANELon 14-98-3041Zivjgsp [Mass/Vol]3.9 g/dLNormal3.2-5.3PBrown Memorial HospitalComment on above: Performed By: #### CMP #### [facility] ([address] [place] [address] VIRALP [Catalytic activity/Vol]60 U/PBnqytq45-217OqyTaiuyrChildren'S Medical Center DallasComment on above:Performed By: #### CMP #### [facility] ([address] [place] [address] VIRALT [Catalytic activity/Vol]36 U/LHigh<=31PBrown Memorial HospitalComment on above:Performed By: #### CMP #### [facility] ([address] [address] VIRAnion gap [Moles/Vol]7 mmol/LNormal5-15ProChildren'S Medical Center DallasComment on above:Performed By: #### CMP #### [facility] ([address] [place] [address] VIRAST [Catalytic activity/Vol]25 U/LNormal<=41ProChildren'S Medical Center DallasComment on above:Performed By: #### CMP #### [facility] ([address] [place] [address] VIRBilirubin [Mass/Vol]0.7 mg/dLNormal0.3-1.2PBrown Memorial HospitalComment on above:Performed By: #### CMP #### [facility] ([address] [place] [address] VIRCalcium [Mass/Vol]8.6 mg/dLNormal8.5-10.5PBrown Memorial HospitalComment on above:Performed By: #### CMP #### [facility] ([address] [place] [address] VIRChloride [Moles/Vol]105 mmol/NXxiaai52-622UitPkoslhChildren'S Medical Center DallasComment on above:Performed By: #### CMP #### [address] [place] [address] VIRCO2 [Moles/Vol]22 mmol/UBilngu78-52NckRkyqrwBrown Memorial HospitalComment on above:Performed By: #### CMP #### [address] [place] [address] VIRCreatinine [Mass/Vol]0.94 mg/dLNormal0.40-1.00ProChildren'S Medical Center DallasComment on above:Result Comment: METHOD TRACEABLE TO IDMS STANDARDPerformed By: #### CMP #### [facility] ([address] [place] [address] VIRGFR/1.73 sq M.predicted among non-blacks MDRD (S/P/Bld) [Vol rate/Area]83 mL/min/{1.73_m2}Normal>=60ProChildren'S Medical Center DallasComment on above:Result Comment: eGFR not reported due to non-numeric value for Creatinine. Reported eGFR is based on the CKD-EPI 2020 equation that does not use a race coefficient.Performed By: #### CMP #### [facility] ([address] [place] [address] VIRGlucose [Mass/Vol]94 mg/aDYpapxv87-12SmeRnwqilChildren'S Medical Center DallasComment on above:Performed By: #### CMP #### [facility] (COUNTS INCLUDE [facility] BEDS AT THE [facility]) [address] [place] [address] [place] [address] VIRPotassium [Moles/Vol]4.0 mmol/LNormal3.5-5.0ProChildren'S Medical Center DallasComment on above:Performed By: #### CMP #### [facility] ([address] [place] [address] VIRProtein [Mass/Vol]7.6 g/dLNormal6.0-8.0ProChildren'S Medical Center DallasComment on above:Performed By: #### CMP #### [facility] ([address] [place] [address] VIRSodium [Moles/Vol]134 mmol/NSvcqtx323-575ManFtnfxt [facility] HospitalComment on above:Performed By: #### CMP #### [facility] ([address] [place] [address] VIRUrea nitrogen [Mass/Vol]18 mg/dLNormal5-23ProChildren'S Medical Center DallasComment on above:Performed By: #### CMP #### [facility] ([address] [place] [address] VIRCT ABDOMEN AND PELVIS W CONTon 62-01-8553IB ABDOMEN AND PELVIS W CONTCT ABDOMEN AND PELVIS W CONT Clinical history: Postoperative abdominal pain. History of ventral hernia repair one week ago. Technique: Spiral CT of the abdomen and pelvis was performed after the intravenous administration of contrast material. Sagittal and coronal reformatted imaging was performed. All CT scans at this facility use dose modulation, iterative reconstruction, and/or weight based dosing when appropriate toreduce radiation dose to as low as reasonably [...] dilated bowel loops. Appendix is normal. Patient appearsto be status post hysterectomy in the interim. [...] by Ish Shultz MD on 05/06/2025 3:46 PMNormalProMedica Alhambra Hospital Medical CenterTelephoneon [id number] Connie Salcido 1995 F Date Provider Department Center 05/02/2025 [facility] Second Fl No family history on fileNormalUniversity of University Medical Center 12-59-1197CWK&P reviewed. The patient was examined and there are no changes to the H&P.NormalUnZanesville City HospitalNURSNOTWhite Mountain Regional Medical Center 10-29-6823MYOGALPJVm alert and oriented x4, No signs of respiratory distress, discharged in stable condition. Pt walks with a steady gait, without assistance. Pt verbalized discharge instructions and follow up information. Pt transported via wheelchair to vehicle with responsible libertarian at this time.[facility] Community HospitalOPNOTWhite Mountain Regional Medical Center 42-62-5241HCAXKB Attestation signed by Delfina Tanner MD at 05/05/2025 2:28 PM Please refer to my operation report. Date: 04/29/2025 Location: [facility] Name: Connie Salcido, : 1995, Diagnosis [...] Implants Type Name Action Serial No. Mesh MESH,SURCIGAL,PROGRIP,[id number] - [id number] Implanted Staff: Er Physician: Daphney Garcia RN; Mckenzie Ko RN Relief Er Physician: Daphney Garcia RN; Lamont Price RN Relief [...] scrubbed for the entire procedure. Delfina Tanner UggyvvQjnhuvakkgMercy Health Willard HospitalOPNOTEROBOTIC INCISIONAL HERNIA REPAIR WITH MESH Operative Note Date: 04/29/2025 Location: [facility] Name: Connie Salcido, : 1995, Diagnosis [...] Implants Type Name Action Serial No. Mesh MESH,SURCIGAL,PROGRIP,[id number] - [id number] Implanted Staff: Er Physician: Daphney Garcia RN; Mckenzie Ko RN Relief Er Physician: Daphney Garcia RN; Lamont Price RN Relief [...] during the entire operatio (more content not included)...Normal [facility] GeneralPOCT GLUCOSE METER UNSOLICITED RESULTSon 97-74-6611Xzzkvkg [Mass/Vol]92 mg/zXBhmytb41-651LdyqrkbpdjZanesville City HospitalComment on above:Order Comment: Waived Testing in the ED is performed under the ED CLIA certificate #[id number].Result Comment: ngrothaPerformed By: #### [id number] ####[facility] (BEAKER)[address] [place] [address] BASIC METABOLIC PANELon 81-33-4159Fjjwe gap [Moles/Vol]8 mmol/LNormal5-15 [facility] HospitalComment on above:Performed By: #### BMP #### [facility] ([facility]) [address] [place] [address] VIRCalcium [Mass/Vol]8.7 mg/dLNormal8.5-10.5PBrown Memorial HospitalComment on above:Performed By: #### BMP #### [facility] ([facility]) [address] [place] [address] VIRChloride [Moles/Vol]106 mmol/ASsflnp93-552IdtEftzgkChildren'S Medical Center DallasComment on above:Performed By: #### BMP #### [facility] ([facility]) [address] [place] [address] VIRCO2 [Moles/Vol]27 mmol/OCwbmce36-84XtrCmaylmBrown Memorial HospitalComment on above:Performed By: #### BMP #### [facility] ([facility]) [address] [place] [address] VIRCreatinine [Mass/Vol]0.69 mg/dLNormal0.40-1.00Mercy Health Allen HospitalComment on above:Result Comment: METHOD TRACEABLE TO IDMS STANDARDPerformed By: #### BMP #### [facility] ([facility]) [address] [place] [address] VIREGFR (CKD-EPI) NON-RACE DEPENDENT>^90Normal>=60ProChildren'S Medical Center DallasComment on above:Result Comment: Reported eGFR is based on the CKD-EPI 2020 equation that does not use a race coefficient.Performed By: #### BMP #### [facility] ([facility]) [address] [place] [address] VIRGlucose [Mass/Vol]91 mg/tSPkxpse69-88BvkEwtqifChildren'S Medical Center DallasComment on above:Performed By: #### BMP #### [facility] ([facility]) [address] [place] [address] VIRPotassium [Moles/Vol]3.7 mmol/LNormal3.5-5.0Mercy Health Allen HospitalComment on above:Performed By: #### BMP #### [facility] ([facility]) [address] [place] [address] VIRSodium [Moles/Vol]141 mmol/KYibken967-435SpjPtmjur Fremont HospitalComment on above:Performed By: #### BMP #### [facility] ([facility]) [address] [place] [address] VIRUrea nitrogen [Mass/Vol]8 mg/dLNormal5-23ProChildren'S Medical Center DallasComment on above:Performed By: #### BMP #### [facility] ([facility]) [address] [place] [address] VIRCBC WITH AUTO DIFFERENTIALon 16-73-4676FHKKKYVAI ABSOLUTE COUNT (10*3/UL) BY AUTOMATED COUNT0.0 10*3/uLNormal0.0-0.2PBrown Memorial HospitalComfresenius medical care at [facility] on above:Performed By: #### CBCA #### [facility] ([facility]) [address] [place] [address] VIRBASOPHILS RELATIVE PERCENT BY AUTOMATED COUNT0.6 %Normal Mercy Health Allen HospitalComment on above:Performed By: #### CBCA #### [facility] ([facility]) [address] [place] [address] VIRCELLAVISION DIFFERENTIAL TYPEAUTOMATED DIFFERENTIALNormal [facility] Health Allen HospitalComment on above:Performed By: #### CBCA #### [facility] ([facility]) [address] [place] [address] VIREosinophils (Bld) [#/Vol]0.0 10*3/uLNormal0.0-0.4Mercy Health Allen HospitalComment on above:Performed By: #### CBCA #### [facility] ([facility]) [address] [place] [address] VIREOSINOPHILS RELATIVE PERCENT BY AUTOMATED COUNT0.3 %Normal [facility] Health Allen HospitalComment on above:Performed By: #### CBCA #### [facility] ([facility]) [address] [place] [address] VIRErythrocyte distribution width (RBC) [Ratio]13.5 %Normal 11.5-15Mercy Health Allen HospitalComment on above:Performed By: #### CBCA #### [facility] ([facility]) [address] [place] [address] VIRHematocrit (Bld) [Volume fraction]42.3 %Dadrqz97-80HflYytygiMercy Health Allen HospitalComment on above:Performed By: #### CBCA #### [facility] ([facility]) [address] [place] [address] VIRHemoglobin (Bld) [Mass/Vol]14.0 g/uQDjgqob78.7-15.5PBrown Memorial HospitalComment on above:Performed By: #### CBCA #### [facility] ([facility]) [address] [place] [address] VIRLYMPHOCYTES ABSOLUTE COUNT (10*3/UL) BY AUTOMATED COUNT2.6 10*3/uLNormal1.0-3.5PBrown Memorial HospitalComment on above:Performed By: #### CBCA #### [facility] ([facility]) [address] [place] [address] VIRLYMPHOCYTES RELATIVE PERCENT BY AUTOMATED COUNT33.3 %Normal [facility] Health Allen HospitalComment on above:Performed By: #### CBCA #### [facility] ([facility]) [address] [place] [address] VIRMCH (RBC) [Entitic mass]29.9 oaMkyqdm52-00GpzOebsvaMercy Health Allen HospitalComment on above:Performed By: #### CBCA #### [facility] ([facility]) [address] [place] [address] VIRMCHC (RBC) [Mass/Vol]33.1 g/jPLvclkr84-44CozVjskwbChildren'S Medical Center DallasComment on above:Performed By: #### CBCA #### [facility] ([facility]) [address] [place] [address] VIRMCV (RBC) [Entitic vol]91 qCWznirf53-100MkiVyfvdv Fremont HospitalComment on above:Performed By: #### CBCA #### [facility] ([facility]) [address] [place] [address] VIRMONOCYTES ABSOLUTE COUNT (10*3/UL) BY AUTOMATED COUNT0.2 10*3/uLNormal0.0-0.9Mer[facility] Health Allen HospitalComfresenius medical care at [facility] on above:Performed By: #### CBCA #### [facility] ([facility]) [address] [place] [address] VIRMONOCYTES RELATIVE PERCENT BY AUTOMATED COUNT3.1 %Normal [facility] Allen HospitalComment on above:Performed By: #### CBCA #### [facility] ([facility]) [address] [place] [address] VIRNEUTROPHILS ABSOLUTE COUNT BY AUTOMATED COUNT4.9 10*3/uL Normal1.5-6.6Mercy Health Allen HospitalComment on above:Performed By: #### CBCA #### [facility] ([facility]) [address] [place] [address] VIRNEUTROPHILS RELATIVE PERCENT BY AUTOMATED COUNT62.7 %Normal [facility] Allen HospitalComment on above:Performed By: #### CBCA #### [facility] ([facility]) [address] [place] [address] VIRPlatelet mean volume (Bld) [Entitic vol]8.5 fLNormal7-12 [facility] Allen HospitalComment on above:Performed By: #### CBCA #### [facility] ([facility]) [address] [place] [address] VIRPlatelets (Bld) [#/Vol]250 10*3/cOTkzvsr947-436IviTbpkez Fremont HospitalComment on above:Performed By: #### CBCA #### [facility] ([facility]) [address] [place] [address] VIRRBC COUNT4.67 X10E12/LNormal3.8-5.2PBrown Memorial HospitalComment on above:Performed By: #### CBCA #### [facility] ([facility]) [address] [place] [address] VIRWBC (Bld) [#/Vol]7.8 10*3/uLNormal4-11Mer[facility] Health Allen HospitalComment on above:Performed By: #### CBCA #### [facility] ([facility]) [address] [place] [address] VIRMRSA PCR NASAL SWABon 53-16-3343OKJO PCR NASAL SWABNegative NormalNegativeMercy Health Allen HospitalComment on above:Performed By: #### MRSPCR #### [facility] ([facility]) [address] [place] [address] VIRPROTIME AND INRon 78-30-0797RQK1.7Ftpehf6.9-1.2PBrown Memorial HospitalComment on above:Performed By: #### PINR #### [facility] ([facility]) [address] [place] [address] VIRPT Coag (PPP) [Time]11.7 sNormal9.8-13.2PBrown Memorial HospitalComment on above:Performed By: #### PINR #### [facility] ([facility]) [address] [place] [address] WVV48zt [id number] patient and surgery scheduled.[facility]36on [id number] called stating that someone was to call her to schedule surgery. I advised pt that staff is in clinic at the moment, but will be reaching out to her to schedule. Pt verbalized understanding.[facility] Telephoneon [id number] Connie Salcido Krystyna 1995 F Date Provider Department Center 03/31/2025 SAUNDRA LEAHY [facility] SURG Second Fl No family history on fileNormalUniversAvita Health System Ontario Hospital29on [id number] by: LIBBY OCONNELL on: 04/01/2025 11:06 AM Modules accepted: OrdersNormalUniversAvita Health System Ontario HospitalConsulton [id number] Connie Salcidoe 1995 F Date Provider Department Center 03/30/2025 DELFINA WILSON RUST SURG Second Fl No family history on file Level of Service:26098 [place] OFFICE/OUTPATIENT NEW MODERATE MDM 45 MINUTES Reason for Visit and Comments: Consult [484] - Patient here for a consult of a ventral hernia.[facility] HospitalHPon 26-57-1369BFfkpZqqsijjozo Patient ID: Connie Salcido is a 29 [...] the past 36 hours). No follow-ups on file.NormalUnZanesville City HospitalIGP,APTIMA HPV,AGE GDLNon 45-95-5701KCX GDLN ACOG TESTINGNote.NOMS HealthcareComment on above:TESTS RESULT FLAG UNITS REF RANGE LAB Clinician Provided Cytology Information Source.............Vagina No. of containers..01 ThinPrep Vial Age Algo ACOG Jerilyn... 30-65 01 FLAG LEGEND: L-Low Normal,H-High Normal,LL-Alert Low,HH-Alert High <-Panic Low,>-Panic High,A-Abnormal,AA-Critical Abnormal Performed at: 01 =[address] [address] Martha Chen MD, HPV APTIMANegativeNegativeNOMS HealthcareComment on above:This nucleic acid amplification test detects fourteen high- risk HPV types (16,18,31,33,35,39,45,51,52,56,58,59,66,68) without differentiation. Performed at: =[facility] [id number] Cigar Packer And Picker: Martha Chen MD, Phone: [phone] Performed at: [address] [id number] Cigar Packer And Picker: Martha Chen MD, Phone: [phone] IGP, APTIMA HPV, RFX 16/18,45Note.NOMS HealthcareComment on above:TESTS RESULT FLAG UNITS REF RANGE LAB DIAGNOSIS: 02 NEGATIVE FOR INTRAEPITHELIAL LESION OR MALIGNANCY. Specimen adequacy: 02 Satisfactory for evaluation. Performed by: 02 Jessica Bo, Gravity Prospecting Operator (ASC) . 02 Note: Note 02 The Pap [...] <-Panic Low,>-Panic High,A-Abnormal,AA-Critical Abnormal Performed at: [address] [address] Martha Chen MD, SPATULA-ALONE VAGINA [facility]INBART[facility] HOSPITALNCAMERICAN [facility] HealthcarePatient Letter FTon 27-50-8783Qherafp Letter [facility] January 06, 2024 CONNIE SALCIDO [address] [place] [address] : 1995 Dear Connie, You missed your [...] the opportunity to cancel by responding to ourreminder text, phone call or email. You can also call the office to reschedule during normal business hours or use our on-line scheduling portal at your convenience. Our goal is to provide convenient and quality care to all of our patients. We appreciate your consideration regarding any future cancellations. Sincerely, [facility] [address] [facility], [place] [address] FsteiiIardgyKindred Hospital LimaUS PELVIS W/ TRANSVAGINALon 71-30-1821[place]snWal[place], [place] [address] Ultrasound Report Signed Patient: CONNIE SALCIDO MR#: [id number] : 1995 Acct:[id number] Age/Sex: 27 / F ADM Date: 10/14/23 Loc: [facility] Attending Dr: Noah Walton D.O. Ordering Physician: Noah Walton D.O. Date of Service: 10/14/23 Procedure(s): US pelvis w/ transvaginal Accession Number(s): [id number] cc: Noah Walton D.O.; Valerie Way M.D. [address] [address] Patient Name: CONNIE SALCIDO MRN: [facility]:[id number] date: 1995 Sex: F Assigned Patient Location: [facility] Current Patient Location: [facility] Accession/Order Number: [id number] Exam Date: 10/14/2023 10:55 Report Date: 10/14/2023 12:52 At the request of: NOAH WALTON Procedure: US pelvis w/ transvaginal EXAM: [...] was not identified. Electronically authenticated by: AYAD BIGGS Date: 10/14/2023 12:52 Dictated By: Ayad Biggs M.D. Signed By: 10/14/23 1259 DD/ 1252 TD/TT: Signal Tester:TBHRadiology, Radiologist, - 10/14/2023 [address] [place] [id number] Ultrasound Report Signed Patient: CONNIE SALCIDO MR#: [id number] : 1995 Acct:[id number] Age/Sex: 27 / F ADM Date: 10/14/23 Loc: [facility] Attending Dr: Noah Walton D.O. Ordering Physician: Noah Walton D.O. Date of Service: 10/14/23 Procedure(s): US pelvis w/ transvaginal Accession Number(s): [id number] cc: Noah Walton D.O.; Valerie Way M.D. The [address] [address] Patient Name: CONNIE SALCIDO MRN: [id number] date: 1995 Sex: F Assigned Patient Location: [facility] Current Patient Location: [facility] Accession/Order Number: [id number] Exam Date: 10/14/2023 10:55 Report Date: 10/14/2023 12:52 At the request of: NOAH WALTON Procedure: US pelvis w/ transvaginal EXAM: [...] was not identified. Electronically authenticated by: AYAD BIGGS Date: 10/14/2023 12:52 Dictated By: Ayad Biggs M.D. Signed By: 10/14/23 125 DD/ 1252 TD/TT: Signal Tester: MARIANA HealthcareRadiology Study observation (narrative)MARIANA HealthcareUS PELVIS W/ TRANSVAGINALOrdered By: Radiologist Radiology on 86-81-4559QBRK [employer] Work Phone: ED Note-Physicianon 29-91-4286SS Note-Physician [id number]#1.00[facility] Hospitalcreenson 38-54-3412Tzfqrli [id number]#1.00[facility] AndersonAmbulatory Visit Summaryon 24-79-3277Bmhgfxuhyv Visit Summary CONNIE SALCIDO :1995 Visit Date:08/19/2023 Ambulatory Visit Instructions Your Diagnosis Kidney stones Asymptomatic microscopic hematuria Mixed incontinence OAB (overactive bladder) Tests Performed Urnls Dip Stick Auto w/o Microscopy POC 46[address] Your Care Team Attending Physician - ADÁN Coello APRN, Carmen Hutchinson Primary Care Physician - Valerie Way MD This Is Your Medications List APAP/butalbital/caffeine (APAP/butalbital/caffeine 325 mg-50 mg-40 mg oral capsule) citalopram (citalopram 20 mg Tab) cyclobenzaprine (cyclobenzaprine 10 mg Tab) hyoscyamine (hyoscyamine 0.125 mg oral Tab) naratriptan (naratriptan 2.5 mg Tab) ondansetron (ondansetron 4 mg Dis Tab) phentermine (phentermine 37.5 mg Tab) Procedures Performed Hysterectomy (04/10/2023), Cystoscopy (11/27/2021), ESWL - Extracorporeal shockwave lithotripsy forrenal calculus (01/25/2021), Cholecystectomy (12/22/2017), Birthcontrol implant, Caesarean section,Tubal ligation. Discharge Vitals Heart Rate (Peripheral) 68 Respiratory Rate 16 Blood Pressure 138/71 Height 154 cm Height 61 in Weight 129.5 kg Weight 284.9 lb BMI 54.6 What to do next Scheduled Follow-Up Appointments Friday 2:30 PM EST With: EROS PA-C, KERA E Where: [facility] Educationon 42-78-8492Nihntss EducationObstetrics and Gynecology Overactive Bladder, Adult Overactive bladder [...] You may also have very sensitive muscles thatmake your bladder squeeze too soon. This condition [...] as stroke, dementia, Parkinson's disease, or multiple sclerosis(MS). ? Eat or drink alcohol, spicy food, [...] health care provider. General instructions ? Take qlgh-qjo-xpwjlkm and prescription medicines only as told by [...] care provider monitor yo (more content not included)...[facility] LimaUrology Office/Clinic Noteon 28-90-4441Atobyld Office/Clinic NoteChief Complaint 1yr HPI Staff PRW pt 1yr KUB *pt did not get KUB done. Was not aware one was ordered. However did get CT done @ [facility] ER08/14/23 DX: Microscopic Hematuria, Hx of Kidney Stones, Nocturia, Stress Incontinence & Frequency Last Stone Procedure 01/25/21 (ESWL) Denies flank pain. Has been lower abdominal discomfort for the past week. Did go to [facility] ER 08/14/23. frequency during the day, [...] sometime last year when she felt increased pressurewhile voiding. No other recent stone episodes that she is aware of. Seen at [facility] ER for RLQ abdominal discomfort 08/14/23 [...] day(s), # 90 tab(s), Refills(s) 0, Pharmacy: [facility], 154, cm, 08/19/23 15:05:00 EST, Height/Length Dosing, 129.5, kg, 08/19/23 15:05:00 EST, Weight Dosing Follow-up No qualifying data available Patient Education Kidney Stones, Aixx-qr-Zdhz Hematuria, Adult Overactive Bladder, Adult Problem List/Past [...] Cystoscopy (11/27/2021), ESWL - Extracorporeal shockwave lithotripsy forrenal calculus (01/25/2021), Cholecystectomy (12/22/2017), Birthcontrol implant, Caesarean section,Tubal ligation. Medications APAP/butalbital/caffeine 325 mg-50 mg-40 mg oral capsule, 1 [...] Oral, Daily Allergies Dilaudid (Nausea and vomiting) Minford (Nausea and vomiting) Social History Alcohol - Denies Alcohol Use, 01/19/2021 Substance Abuse Tobacco Never (less than 100 in lifetime) Tobacco Use:. Never Smokeless Tobacco Use:. Household tobacco concerns: No. Yes, 08/19/2023 Family History Heart disease: Mother. Kidney stone: Mother. Migraine: Mother. Immunizations Vaccine Date Status influenza virus vaccine, inactivated 06/18/2022 Recorded SARS-CoV-2 (COVID-19) mRNAMUL.ORD![id number] 06/18/2022 Recorded SARSCoV2 mRNA(kqtfglxre-mqgb-kptffb) vac 12/03/2021 Recorded SARSCoV2 mRNA(orzrkxysg-mtxr-igkecc) vac 10/25/2021 R (more content not included)...[facility]red Hospital LimaComment on above:Result Comment: Electronically Signed By: ADÁN Coello APRN, [place] X\.br\Date and Time Signed: 08/19/23 16:30 ESTCLEARSKY [facility] ACOG PANEL 2: 21 to 29on 12-24-2022..[facility] HospitalComment on above:Performed By: #### LACT #### [facility] [address] [place] [address] Dr. Tho Casper Gdln ACOG Xvwnjmo59-91NeejxiLmdOhioHealth Marion General HospitalComment on above:Performed By: #### LACT #### [facility] [address] [place] [address] Dr. Tho HardyDIAGNOSIS:CommentMetroHealth Cleveland Heights Medical Center on above: Result Comment: NEGATIVE FOR INTRAEPITHELIAL LESION OR MALIGNANCY.Performed By: #### LACT #### [facility] [address] [place] [address] Dr. Tho HardyMethodology:CommentMetroHealth Cleveland Heights Medical Center on above: Result Comment: This liquid based ThinPrep(R) pap test was screened with the use of an image guided system.Performed By: #### LACT #### [facility] [address] [place] [address] Dr. Tho HardyNote:CommentMetroHealth Cleveland Heights Medical Center on above:Result Comment: The Pap smear is a screening test designed to aid in the detection of premalignant and malignant conditions of the uterine cervix. It is not a diagnostic procedure and should not be used as the sole means of detecting cervical cancer. Both false-positive and false-negative reports do occur. .Performed By: #### LACT #### [facility] [address] [place] [address] Dr. Tho HardyPerformed by:CommentMetroHealth Cleveland Heights Medical Center on above: Result Comment: Julieta Choudhary, Gravity Prospecting Operator (ASCP)Performed By: #### LACT #### [place] [address] Dr. Tho HardyReflex Criteria:[facility] on above:Result Comment: The HPV DNA reflex criteria were not met with this specimen result therefore, no HPV testing was performed. .Performed By: #### LACT #### [facility] [address] [place] [address] Dr. Tho HardySpecimen adequacy:CommentMetroHealth Cleveland Heights Medical Center on above:Result Comment: Satisfactory for evaluation. Endocervical and/or squamous metaplastic cells (endocervical component) are present.Performed By: #### LACT #### [facility] [address] [place] [address] Dr. Tho HardyXR RIBS LT PA Ryan 04-70-4411KZ RIBS LT PA CHEXAMINATION: XR RIBS LT PA CH HISTORY: Congenital anomaly of rib COMPARISON: 08/04/2022 FINDINGS: LUNGS: No significant pulmonary parenchymal abnormalities. PLEURA: No pneumothorax, effusion, or pleural thickening. MEDIASTINUM: No visible mass or adenopathy. CARDIAC: No cardiomegaly or cardiac silhouette abnormality. RIBS: No acute rib fracture IMPRESSION: Clear lungs No acute rib fracture Electronically authenticated by: AYAD MALCOLM Date: 2022-11-14 07:04NoFort Hamilton HospitalXR ANKLE LT MIN 3 Von [id number] ANKLE LT MIN 3 VEXAM: XR ANKLE LT MIN 3 V HISTORY: Pain of left ankle [...] Electronically authenticated by: NISREEN DUNNE Date: 2022 15:34[facility] HospitalCBC AUTO DIFFon 26-02-4166NJAK #0.0 103/ulNormal0.0-0.1Norwalk Memorial HospitalComment on above:Performed By: #### CBC #### [facility] [address] [place] [address] [address] Tho Moreiraphils/100 WBC (Bld)0.3 %Normal0.2-2.0[facility] Comment on above:Performed By: #### CBC #### [facility] [address] [place] [address] [address] Tho Saeed #0.1 103/ulNormal0.0-0.7The Wayne HospitalComment on above: Performed By: #### CBC #### [facility] [address] [place] [address] Dr. Tho Rosalesosinophils/100 WBC (Bld)1.5 %Normal0.9-7.0[facility] Comment on above:Performed By: #### CBC #### [facility] [address] [place] [address] Dr. Tho Rosalesrythrocyte distribution width (RBC) [Ratio]12.7 %Edgiuk56.0-15.0 The Wayne HospitalComment on above:Performed By: #### CBC #### [facility] [address] [place] [address] Dr. Tho HardyHematocrit (Bld) [Volume fraction]44.9 %Kmgszj97.0-48.0The Wayne HospitalComment on above:Performed By: #### CBC #### [facility] [address] [place] [address] Dr. Tho HardyHemoglobin (Bld) [Mass/Vol]14.3 g/nACvmiyz46.0-16.0The Wayne HospitalComment on above:Performed By: #### CBC #### [facility] [address] [place] [address] Dr. Tho Rios #0.02 10e3/ulNormal0.00-0.03The Wayne HospitalComment on above:Performed By: #### CBC #### [facility] [address] [place] [address] Dr. Tho Rios %0.3 %Normal0.0-0.5The Wayne HospitalComment on above: Performed By: #### CBC #### [facility] [address] [place] [address] Dr. Tho BenzH #1.9 103/ulNormal1.2-3.8The Wayne HospitalComment on above:Performed By: #### CBC #### [facility] [address] [place] [address] Dr. Yilan ChangLymphocytes/100 WBC (Bld)27.7 %Uiwlbe82.5-60.0The Wayne HospitalComment on above:Performed By: #### CBC #### [facility] [address] [place] [address] Dr. Tho Medina DIFF REQNONormalThe Wayne HospitalComment on above: Performed By: #### CBC #### [facility] [address] [place] [address] Dr. Tho Sung (RBC) [Entitic mass]30.3 irAhcfug07.7-34.0The [facility]imson HospitalComment on above:Performed By: #### CBC #### [facility] [address] [place] [address] Dr. Tho Sung (RBC) [Mass/Vol]31.8 g/dJNvazuh39.9-35.2The Wayne HospitalComment on above:Performed By: #### CBC #### [facility] [address] [place] [address] Dr. Tho Gomez (RBC) [Entitic vol]95.1 bXAxrdzw91.0-99.0The Wayne HospitalComment on above:Performed By: #### CBC #### [facility] [address] [place] [address] Dr. Tho Camp #0.5 103/ulNormal0.3-0.8The Wayne HospitalComment on above:Performed By: #### CBC #### [facility] [address] [place] [address] Dr. Tho Espinalocytes/100 WBC (Bld)7.6 %Normal1.7-12.0[facility] Comment on above:Performed By: #### CBC #### [facility] [address] [place] [address] Dr. hTo Swanson #4.2 103/ulNormal1.4-6.5The Wayne HospitalComment on above:Performed By: #### CBC #### [facility] [address] [place] [address] Dr. Tho Duronophils/100 WBC (Bld)62.6 %Amcrfa61.0-75.0The Wayne HospitalComment on above:Performed By: #### CBC #### [facility] [address] [place] [address] Dr. Tho De Los Santos mean volume (Bld) [Entitic vol]10.0 fLNormal9.5-13.5The Wayne HospitalComment on above:Performed By: #### CBC #### [facility] [address] [place] [address] Dr. Tho HardyPLT242 103/scZizplt504-780Fzi [facility] HospitalComfresenius [facility] on above: Performed By: #### CBC #### [facility] [address] [place] [address] Dr. Tho HardyRBC4.72 106/ulNormal4.20-5.40The [facility] HospitalComfres[facility] on above:Performed By: #### CBC #### [facility] [address] [place] [address] Dr. Tho HardyWBC6.7 103/ulNormal4.0-11.0The [facility] HospitalComfres[facility] on above: Performed By: #### CBC #### [facility] [address] [place] [address] Dr. Tho Cardoso URINE PROFILEon [id number] Ql (U)NegativeNormal NEGATIVEThe [facility] HospitalComfresen[facility] on above:Performed By: #### LACT #### [facility] [address] [place] [address] Dr. Tho Bronson (U)CLEARNormalCLEARThe [facility] HospitalComfresen[facility] on above: Performed By: #### LACT #### [facility] [address] [place] [address] Dr. Tho Hernandes (U)YELLOWNormalYELLOWNorwalk Memorial HospitalComment on above: Performed By: #### LACT #### [facility] [address] [place] [address] Dr. Tho Hatch micrscopic examination will be performed if indicated. NormalThe Wayne HospitalComment on above:Performed By: #### LACT #### [facility] [address] [address] [address] Tho HardyGlucose Ql (U)NegativeNormalNEGATIVENorwalk Memorial HospitalComment on above:Performed By: #### LACT #### [facility] [address] [address] [address] Tho HardyHemoglobin Ql (U)MODERATEAbnormalNEGATIVENorwalk Memorial Hospital Comment on above:Performed By: #### LACT #### [facility] [address] [address] [address] Tho HardyKetones Ql (U)NegativeNormalNEGATIVENorwalk Memorial HospitalComment on above:Performed By: #### LACT #### [facility] [address] [place] [address] Dr. Tho HardyLEUKOCYTESNegativeNormalNEGATIVENorwalk Memorial HospitalComment on above:Performed By: #### LACT #### [facility] [address] [place] [address] Dr. Tho HardyNitrite Ql (U)NegativeNormalNEGATIVENorwalk Memorial HospitalComment on above:Performed By: #### LACT #### [facility] [address] [place] [address] Dr. Tho HardypH (U)5.5 [pH]Normal5-9Norwalk Memorial HospitalComment on above: Performed By: #### LACT #### [facility] [address] [place] [address] Dr. Tho HardySPEC GRAVITY>=1.283Qgrsdoeu3.005-<=1.025[facility] Comment on above:Performed By: #### LACT #### [facility] [address] [place] [address] Dr. Tho Rodriguez PROTEINNegativeCox SouthalNEGATIVE/ TRACENorwalk Memorial Hospital Comment on above:Performed By: #### LACT #### [facility] [address] [place] [address] Dr. Tho Garcia MICRO INDINDICATEDNoalThFirelands Regional Medical CenterComment on above: Performed By: #### LACT #### [facility] [address] [place] [address] Dr. Tho Jonesbilinogen Qn (U)0.2 {Roland'U}/dLNormal0.2 - 1.0The [facility] HospitalComment on above:Performed By: #### LACT #### [facility] [address] [place] [address] Dr. Tho HardyPREGNANCY URon [id number], QUALNegativeNormalNEGATIVEThe Wayne HospitalComment on above:Performed By: #### LACT #### [facility] [address] [place] [address] Dr. Tho SaundersF CHEM 8 (BAS METB)on [id number] gap [Moles/Vol]12.8 mmol/LNormalThe Wayne HospitalComment on above:Performed By: #### BMP #### [facility] [address] [place] [address] Dr. Tho HardyCalcium [Mass/Vol]8.7 mg/dLNormal8.5-10.1[facility] Comment on above:Performed By: #### BMP #### [facility] [address] [place] [address] Dr. Tho HardyChloride [Moles/Vol]104 mmol/TEteamj70-864Ccd [facility] Comment on above:Performed By: #### BMP #### [facility] [address] [place] [address] Dr. Tho HardyCO2 [Moles/Vol]28.4 mmol/BQsaqiq24.0-32.0[facility] Comment on above:Performed By: #### BMP #### [facility] [address] [place] [address] Dr. Tho HardyCreatinine [Mass/Vol]0.65 mg/dLNormal0.55-1.02The [facility] HospitalComment on above:Performed By: #### BMP #### [facility] [address] [place] [address] Dr. Tho RosalesGFR-AF VINCENTIAN>60Normal>=60The [facility] HospitalComment on above:Performed By: #### BMP #### [facility] [address] [place] [address] Dr. Tho RosalesGFR-NON AF VINCENTIAN>60Normal>=60The [facility] HospitalComment on above:Performed By: #### BMP #### [facility] [address] [address] [address] Tho HardyGlucose [Mass/Vol]86 mg/bRZboojr98-013Gub [facility] Comment on above:Performed By: #### BMP #### [facility] [address] [place] [address] Dr. Tho HardyPotassium [Moles/Vol]3.2 mmol/LCritically low3.5-5.1The [facility] HospitalComment on above:Performed By: #### BMP #### [facility] [address] [place] [address] Dr. Tho Brunodium [Moles/Vol]142 mmol/DNbqayh741-278Jym [facility] Comment on above:Performed By: #### BMP #### [facility] [address] [place] [address] Dr. Tho Alba nitrogen [Mass/Vol]11.0 mg/dLNormal7.0-18.0The [facility] HospitalComment on above:Performed By: #### BMP #### [facility] [address] [place] [address] Dr. Tho Alba nitrogen/Creatinine [Mass ratio]16.9 mg/mgNoFort Hamilton HospitalComfresenius [facility] on above:Performed By: #### BMP #### [facility] [address] [address] [address] Tho Motley MICROSCOPIC ONLYon [id number]C SEEN [facility] HospitalComment on above:Performed By: #### LACT #### [facility] [address] [place] [address] Dr. Tho aHrdyBacteria identified Cx Nom (U)NOT INDICATEDNormalThe Wayne HospitalComment on above:Performed By: #### LACT #### [facility] [address] [address] [address] Tho HardyCASTJACLYNE SEENNormalNONE SEENBellevue Hospital on above:Performed By: #### LACT #### [facility] [address] [place] [address] Dr. Tho Moore LM Nom (Urine sed)NONE SEENNormalNONE SEENThe Wayne HospitalComment on above:Performed By: #### LACT #### [facility] [address] [place] [address] Dr. Tho Rosalespithelial cells LM Ql (Urine sed)FEWAbnormalNONE SEEN /RAREThe [facility] on above:Performed By: #### LACT #### [facility] [address] [place] [address] Dr. Tho LandaCOUSROXANN SEENNormalNONE SEENBellevue Hospital on above:Performed By: #### LACT #### [facility] [address] [place] [address] Dr. Tho SmithPkdzuIYV9-0Wkpxsm6-2Gjw [facility] on above:Performed By: #### LACT #### [facility] [address] [place] [address] Dr. Tho HardyWBCROXANN SEENNormalNONE SEENBellevue Hospital on above: Performed By: #### LACT #### [facility] [address] [place] [address] Dr. Tho Esquivel AUTO DIFFon [id number] #0.0 103/ulNormal0.0-0.1The [facility] on above:Performed By: #### LACT #### [facility] [address] [place] [address] Dr. Tho HardyBasophils/100 WBC (Bld)0.1 %Critically low0.2-2.0The [facility] on above:Performed By: #### LACT #### [facility] [address] [place] [address] Dr. Tho Saeed #0.2 103/ulNormal0.0-0.7The Wayne HospitalComment on above: Performed By: #### LACT #### [facility] [address] [place] [address] Dr. Tho Rosalesosinophils/100 WBC (Bld)2.3 %Normal0.9-7.0[facility] Comment on above:Performed By: #### LACT #### [facility] [address] [place] [address] Dr. Tho oRsalesrythrocyte distribution width (RBC) [Ratio]12.7 %Szwvme36.0-15.0 The Wayne HospitalComment on above:Performed By: #### LACT #### [facility] [address] [place] [address] Dr. Tho HardyHematocrit (Bld) [Volume fraction]43.4 %Ajnryp71.0-48.0The Wayne HospitalComment on above:Performed By: #### LACT #### [facility] [address] [place] [address] Dr. Tho HardyHemoglobin (Bld) [Mass/Vol]14.6 g/uCVacudp09.0-16.0The Wayne HospitalComment on above:Performed By: #### LACT #### [facility] [address] [place] [address] Dr. Tho Rios #0.02 10e3/ulNormal0.00-0.03The Wayne HospitalComment on above:Performed By: #### LACT #### [facility] [address] [place] [address] Dr. Tho Rios %0.2 %Normal0.0-0.5The [facility] HospitalComment on above: Performed By: #### LACT #### [facility] [address] [place] [address] Dr. Tho Robles #1.8 103/ulNormal1.2-3.8The Wayne HospitalComment on above:Performed By: #### LACT #### [facility] [address] [place] [address] Dr. Tho Hallmphocytes/100 WBC (Bld)20.5 %Eybhyk09.5-60.0The [facility] HospitalComment on above:Performed By: #### LACT #### [facility] [address] [place] [address] Dr. Tho Medina DIFF REQNONormalThe Wayne HospitalComment on above: Performed By: #### LACT #### [facility] [address] [place] [address] Dr. Tho Sung (RBC) [Entitic mass]30.4 yyIustfh09.7-34.0The Wayne HospitalComment on above:Performed By: #### LACT #### [facility] [address] [place] [address] Dr. Tho Sung (RBC) [Mass/Vol]33.6 g/pJFrztmf15.9-35.2The [facility] HospitalComment on above:Performed By: #### LACT #### [facility] [address] [place] [address] Dr. Tho Sung (RBC) [Entitic vol]90.4 gMPrjylz59.0-99.0The Wayne HospitalComment on above:Performed By: #### LACT #### [facility] [address] [place] [address] Dr. Tho Camp #0.5 103/ulNormal0.3-0.8The [facility] HospitalComment on above:Performed By: #### LACT #### [facility] [address] [place] [address] Dr. Tho Espinalocytes/100 WBC (Bld)5.5 %Normal1.7-12.0[facility] Comment on above:Performed By: #### LACT #### [facility] [address] [place] [address] Dr. Tho Swanson #6.2 103/ulNormal1.4-6.5The Josie HospitalComment on above:Performed By: #### LACT #### [facility] [address] [address] [address] Tho Michaudutrophils/100 WBC (Bld)71.4 %Wwzzhy23.0-75.0The [facility] on above:Performed By: #### LACT #### [facility] [address] [address] [address] Tho Nailslet mean volume (Bld) [Entitic vol]9.5 fLNormal9.5-13.5The [facility] HospitalComment on above:Performed By: #### LACT #### [facility] [address] [place] [address] Dr. Tho HardyPLT234 103/eoXzcmas971-179Sxk [facility] on above: Performed By: #### LACT #### [facility] [address] [place] [address] Dr. Tho HardyRBC4.80 106/ulNormal4.20-5.40The [facility] on above:Performed By: #### LACT #### [facility] [address] [place] [address] Dr. Tho HardyWBC8.7 103/ulNormal4.0-11.0The [facility] on above: Performed By: #### LACT #### [facility] [address] [place] [address] Dr. Tho Cardoso URINE PROFILEon [id number] Ql (U)NegativeNormal NEGATIVEThe [facility] HospitalComfresen[facility] on above:Performed By: #### PREGU, ERUR, UMICRO #### [facility] [address] [place] [address] Dr. Tho Bronson (U)CLEARNormalCLEARThe [facility] HospitalComfres[facility] on above: Performed By: #### PREGU, ERUR, UMICRO #### [facility] [address] [place] [address] Dr. Tho Hernandes (U)YELLOWNormalYELLOWThe Josie HospitalComment on above: Performed By: #### PREGU, ERUR, UMICRO #### [facility] [address] [address] [address] Tho Hatch micrscopic examination will be performed if indicated. NormalThe [facility]imson HospitalComment on above:Performed By: #### PREGU, ERUR, UMICRO #### [facility] [address] [address] [address] Tho HardyGlucose Ql (U)NegativeNormalNEGATIVEMain Campus Medical Center HospitalComment on above:Performed By: #### PREGU, ERUR, UMICRO #### [facility] [address] [address] [address] Tho HardyHemoglobin Ql (U)SMALLAbnormalNEGATIVECleveland Clinic Lutheran Hospital on above:Performed By: #### PREGU, ERUR, UMICRO #### [facility] [address] [address] [address] Tho HardyKetones Ql (U)NegativeNormalNEGATIVENorwalk Memorial HospitalComment on above:Performed By: #### PREGU, ERUR, UMICRO #### [facility] [address] [address] [address] Tho HardyLEUKOCYTESNegativeNormalNEGATIVENorwalk Memorial HospitalComment on above:Performed By: #### PREGU, ERUR, UMICRO #### [facility] [address] [address] [address] Tho HardyNitrite Ql (U)NegativeNormalNEGATIVENorwalk Memorial HospitalComment on above:Performed By: #### PREGU, ERUR, UMICRO #### [facility] [address] [address] [address] Tho HardypH (U)5.5 [pH]Normal5-9Nor[facility] HospitalComment on above: Performed By: #### PREGU, ERUR, UMICRO #### [facility] [address] [address] [address] Tho HardySPEC GRAVITY>=1.926Touqukgk8.005-<=1.025[facility] Comment on above:Performed By: #### PREGU, ERUR, UMICRO #### [facility] [address] [place] [address] Dr. Tho Rodriguez PROTEINTRACENormalNEGATIVE/ TRACEThe Wayne HospitalComment on above:Performed By: #### PREGU, ERUR, UMICRO #### [facility] [address] [place] [address] Dr. Tho CRAIG INDINDICATEDNormalThe [facility] HospitalComment on above: Performed By: #### PREGU, ERUR, UMICRO #### [facility] [address] [place] [address] Dr. Tho Fonseca Qn (U)0.2 {Roland'U}/dLNormal0.2 - 1.0The [facility] HospitalComment on above:Performed By: #### PREGU, ERUR, UMICRO #### [facility] [address] [place] [address] Dr. Tho Bradley PANEL (PCR)on [id number] F 40/41Not detectedNormal NOT DETECTEDThe Wayne HospitalComment on above:Performed By: #### MARIOANEL #### [facility] [address] [place] [address] Dr. Tho HardyAstrovirusNot detectedNormalNOT DETECTEDThe [facility] Comment on above:Performed By: #### MARIOANEL #### [facility] [address] [place] [address] Dr. Tho Mccain. Diff toxin A/BNot detectedNormalNOT DETECTEDThe [facility] HospitalComment on above:Performed By: #### GIPANEL #### [facility] [address] [place] [address] Dr. Tho SavagepylobacterNot detectedNormalNOT DETECTEDThe [facility] Comment on above:Performed By: #### MARIOANEL #### [facility] [address] [place] [address] Dr. Yilan ChangCryptosporidiumNot detectedNormalNOT DETECTEDThe [facility] HospitalComment on above:Performed By: #### GIPANEL #### [facility] [address] [address] [address] Tho Richardsonos. CayetanensisNot detectedNormalNOT DETECTEDThe [facility] HospitalComment on above:Performed By: #### GIPANEL #### [facility] [address] [address] [address] Tho Dickey Coli V406Qfu ApplicableNormalNot ApplicableThe Wayne HospitalComment on above:Performed By: #### GIPANEL #### [facility] [address] [address] [address] Tho Dickey histolyticaNot detectedNormalNOT DETECTEDThe [facility] Comment on above:Performed By: #### GIPANEL #### [facility] [address] [address] [address] Tho RosalesAECNot detectedNormalNOT DETECTEDThe [facility] HospitalComment on above:Performed By: #### GIPANEL #### [facility] [address] [address] [address] Tho RosalesIECNot detectedNormalNOT DETECTEDThe [facility] HospitalComfresen[facility] on above:Performed By: #### GIPANEL #### [facility] [address] [address] [address] Tho RosalesPECYvonne detectedNormalNOT DETECTEDThe [facility] HospitalComment on above:Performed By: #### GIPANEL #### [facility] [address] [address] [address] Tho RosalesTECNot detectedNormalNOT DETECTEDThe [facility] HospitalComment on above:Performed By: #### GIPANEL #### [facility] [address] [address] [address] Tho Ashley LambliaNot detectedNormalNOT DETECTEDThe [facility] Comment on above:Performed By: #### GIPANEL #### [facility] [address] [address] [address] Tho Bowman CONTROLSPASSChillicothe VA Medical CenterComment on above:Performed By: #### LUCASL #### [facility] [address] [address] [address] Tho CESPEDES HEADERGI [facility] Comment on above:Performed By: #### NATALEE #### [facility] [address] [address] [address] Tho Salas ECOLIGI PANEL DIARRHEAGENIC E.COLI / SHIGELLAOhioHealth Marion General HospitalComment on above:Performed By: #### NATALEE #### [facility] [address] [address] [address] Tho Salas INFOSEE [facility]aritan Medical CenterComment on above: Result Comment: EAEC- Enteroaggregative E. Coli EPEC- Enteropathogenic E. Coli ETEC- Enterotoxigenic E. Coli lt/st STEC- Shigella-like toxin-producing E. Coli stx1/stx2 EIEC- Shigella/Enteroinvasive E. ColiPerformed By: #### NATALEE #### [facility] [address] [address] [address] Tho Salas PARASITESGI PANEL PARASITESOhioHealth Marion General Hospital Comment on above:Performed By: #### LUCASL #### [facility] [address] [address] [address] Tho Salas VIRUSGI PANEL VIRUSESOhioHealth Marion General HospitalComment on above:Performed By: #### NATALEE #### [facility] [address] [address] [address] Tho Srinivasanvirus GI/GIINot detectedNormalNOT DETECTEDNorwalk Memorial HospitalComment on above:Performed By: #### NATALEE #### [facility] [address] [address] [address] Tho Lopez ShigelloidesNot detectedNormalNOT DETECTEDThe [facility] HospitalComment on above:Performed By: #### NATALEE #### [facility] [address] [address] [address] Tho HardyRotavirus ANot detectedNormalNOT DETECTEDThe [facility] Comment on above:Performed By: #### GIPANEL #### [facility] [address] [address] [address] Tho HardySalmonellaNot detectedNormalNOT DETECTEDNorwalk Memorial Hospital Comment on above:Performed By: #### GIPANEL #### [facility] [address] [address] [address] Tho HardySapovirusNot detectedNormalNOT DETECTEDThe [facility] Comment on above:Performed By: #### GIPANEL #### [facility] [address] [address] [address] Tho HardySTECNot detectedNormalNOT DETECTEDThe [facility] HospitalComment on above:Performed By: #### GIPANEL #### [facility] [address] [address] [address] Tho MotleybrioNot detectedNormalNOT DETECTEDThe [facility] HospitalComment on above:Performed By: #### GIPANEL #### [facility] [address] [address] [address] Tho Delcidio CholeraNot detectedNormalNOT DETECTEDNorwalk Memorial Hospital Comment on above:Performed By: #### GIPANEL #### [facility] [address] [address] [address] Tho Mendoza. EnterocoliticaNot detectedNormalNOT DETECTEDThe [facility] HospitalComment on above:Performed By: #### GIPANEL #### [facility] [address] [address] [address] Tho DicksonGNANCY URon [id number], QUALNegativeNormalNEGATIVEThe [facility] HospitalComment on above:Performed By: #### PREGU, ERUR, UMICRO #### [facility] [address] [address] [address] Tho HardyPROF CHEM 8 (BAS METB)on [id number] gap [Moles/Vol]15.6 mmol/LNormalThe Josie HospitalComment on above:Performed By: #### BMP #### [facility] [address] [address] [address] Tho HardyCalcium [Mass/Vol]9.0 mg/dLNormal8.5-10.1[facility] Comment on above:Performed By: #### BMP #### [facility] [address] [address] [address] Tho HardyChloride [Moles/Vol]104 mmol/MMtuevw45-802LdpNorwalk Memorial Hospital Comment on above:Performed By: #### BMP #### [facility] [address] [address] [address] Tho HardyCO2 [Moles/Vol]24.0 mmol/JKwqnls66.0-32.0[facility] Comment on above:Performed By: #### BMP #### [facility] [address] [address] [address] Tho HardyCreatinine [Mass/Vol]0.73 mg/dLNormal0.55-1.02[facility] Memorial HospitalComment on above:Performed By: #### BMP #### [facility] [address] [address] [address] Tho RosalesGFR-AF VINCENTIAN>60Normal>=60[facility] Memorial HospitalComment on above:Performed By: #### BMP #### [facility] [address] [address] [address] Tho RosalesGFR-NON AF VINCENTIAN>60Normal>=60The [facility] HospitalComment on above:Performed By: #### BMP #### [facility] [address] [address] [address] Tho HardyGlucose [Mass/Vol]85 mg/jOPpfkdx23-597AzuNorwalk Memorial Hospital Comment on above:Performed By: #### BMP #### [facility] [address] [address] [address] Tho HardyPotassium [Moles/Vol]3.6 mmol/LNormal3.5-5.1[facility] Comment on above:Performed By: #### BMP #### [facility] [address] [address] [address] Tho Brunodium [Moles/Vol]140 mmol/GSpveti023-520Lhc [facility] Comment on above:Performed By: #### BMP #### [facility] [address] [address] [address] Tho HardyUrea nitrogen [Mass/Vol]12.0 mg/dLNormal7.0-18.0The [facility] HospitalComment on above:Performed By: #### BMP #### [facility] [address] [address] [address] Tho Alba nitrogen/Creatinine [Mass ratio]16.4 mg/mgNoFort Hamilton HospitalComment on above:Performed By: #### BMP #### [facility] [address] [address] [address] Tho Motley MICROSCOPIC ONLYon [id number]F SEEN [facility] HospitalComment on above:Performed By: #### PREGU, ERUR, UMICRO #### [facility] [address] [address] [address] Tho Causey identified Cx Nom (U)NOT INDICATEDNoFort Hamilton HospitalComfresenius [facility] on above:Performed By: #### PREGU, ERUR, UMICRO #### [facility] [address] [address] [address] Tho Manzanares SEENNormalNONE SEENThe [facility]ment on above:Performed By: #### PREGU, ERUR, UMICRO #### [facility] [address] [address] [address] Tho Moore LM Nom (Urine sed)NONE SEENNormalNONE SEENBellevue Hospital on above:Performed By: #### PREGU, ERUR, UMICRO #### [facility] [address] [address] [address] Nettles ChangEpithelial cells LM Ql (Urine sed)MANYAbnormalNONE SEEN /RAREThe Josie HospitalComment on above:Performed By: #### PREGU, ERUR, UMICRO #### [facility] [address] [address] [address] Tho Goodwin SEENNormalNONE SEENNorwalk Memorial HospitalComment on above:Performed By: #### PREGU, ERUR, UMICRO #### [facility] [address] [address] [address] Tho BradleyHggtjDKS6-2Uxgokfch7-0Jfl [facility] HospitalComment on above:Performed By: #### PREGU, ERUR, UMICRO #### [facility] [address] [address] [address] Tho ROSASNormalROXANN SEENNorwalk Memorial HospitalComment on above: Performed By: #### PREGU, ERUR, UMICRO #### [facility] [address] [address] [address] Tho HardyAMYLASEon [id number] [Catalytic activity/Vol]27 U/LNormal 25-115The [facility] HospitalComment on above:Performed By: #### PREGU, ERUR, UMICRO #### [facility] [address] [address] [address] Tho Victor JEAN 3-6on [id number] [Catalytic activity/Vol]53 U/L Qanzmg77-003Msv [facility] HospitalComment on above:Performed By: #### CMREP #### [facility] [address] [place] [address] Dr. Tho Tan.MB [Mass/Vol]0.79 ng/mLNormal<=3.60[facility] Comment on above:Performed By: #### CMREP #### [facility] [address] [place] [address] Dr. Tho TamayoTROP4.6 pg/mLNormal4.0-51.3The [facility] HospitalComment on above:Result Comment: CUT-OFF POINTS HAVE BEEN ESTABLISHED BASED ON THE FOURTH UNIVERSAL DEFINITIONS OF MYOCARDIAL INFARCTION. THE UPPER REFERENCE LIMIT (URL) OF TROPONIN, DEFINED THE 99TH PERCENTILE OF cTnI DISTRIBUTION IN A REFERENCE POPULATION, HAS BEEN CONFIRMED THE DECISION THRESHOLD FOR LA DIAGNOSIS.Performed By: #### CMREP #### [facility] [address] [place] [address] Dr. Tho PENA ADMITon [id number] [Catalytic activity/Vol]68 U/L Wirxtf39-830Ssx [facility] HospitalComment on above:Performed By: #### RICHARDSON PATEL UMICRO #### [facility] [address] [place] [address] Dr. Tho Tan.MB [Mass/Vol]1.11 ng/mLNormal<=3.60[facility] Comment on above:Performed By: #### RICHARDSON PATEL UMICRO #### [facility] [address] [place] [address] Dr. Tho TamayoTROP4.3 pg/mLNormal4.0-51.3The [facility] HospitalComment on above:Result Comment: CUT-OFF POINTS HAVE BEEN ESTABLISHED BASED ON THE FOURTH UNIVERSAL DEFINITIONS OF MYOCARDIAL INFARCTION. THE UPPER REFERENCE LIMIT (URL) OF TROPONIN, DEFINED THE 99TH PERCENTILE OF cTnI DISTRIBUTION IN A REFERENCE POPULATION, HAS BEEN CONFIRMED THE DECISION THRESHOLD FOR LA DIAGNOSIS.Performed By: #### RICHARDSON PATEL UMICRO #### [facility] [address] [place] [address] Dr. Tho HardyMYO29 ng/mLNormal9-82The [facility] HospitalComment on above: Performed By: #### RICHARDSON PATEL UMICRO #### [facility] [address] [place] [address] Dr. Tho HardyCBLaila AUTO DIFFon [id number] #0.0 103/ulNormal0.0-0.1The [facility] on above:Performed By: #### RICHARDSON PATEL UMICRO #### [facility] [address] [place] [address] Dr. Tho HardyBasophils/100 WBC (Bld)0.4 %Normal0.2-2.0[facility] Comment on above:Performed By: #### PREGU, ERUR, UMICRO #### [facility] [address] [address] [address] Tho Saeed #0.2 103/ulNormal0.0-0.7The [facility] HospitalComment on above: Performed By: #### PREGU, ERUR, UMICRO #### [facility] [address] [address] [address] Tho Rosalesosinophils/100 WBC (Bld)1.7 %Normal0.9-7.0[facility] Comment on above:Performed By: #### PREGU, ERUR, UMICRO #### [facility] [address] [place] [address] Dr. Tho Rosalesrythrocyte distribution width (RBC) [Ratio]12.9 %Bzkzll19.0-15.0 The [facility] HospitalComment on above:Performed By: #### PREGU, ERUR, UMICRO #### [facility] [address] [place] [address] Dr. Tho HardyHematocrit (Bld) [Volume fraction]43.2 %Nugqgv03.0-48.0The [facility] HospitalComment on above:Performed By: #### PREGU, ERUR, UMICRO #### [facility] [address] [place] [address] Dr. Tho HardyHemoglobin (Bld) [Mass/Vol]14.4 g/qBRqrhwr95.0-16.0The [facility] HospitalComment on above:Performed By: #### PREGU, ERUR, UMICRO #### [facility] [address] [place] [address] Dr. Tho Rios #0.05 10e3/ulCritically high0.00-0.03The [facility] Comment on above:Performed By: #### PREGU, ERUR, UMICRO #### [facility] [address] [place] [address] Dr. Tho Rios %0.4 %Normal0.0-0.5The [facility] HospitalComment on above: Performed By: #### PREGU, ERUR, UMICRO #### [facility] [address] [place] [address] Dr. Tho Robles #2.4 103/ulNormal1.2-3.8The [facility] HospitalComment on above:Performed By: #### PREGU, ERUR, UMICRO #### [facility] [address] [place] [address] Dr. Tho Benzhocytes/100 WBC (Bld)21.3 %Rlsebd98.5-60.0The [facility] HospitalComment on above:Performed By: #### PREGU, ERUR, UMICRO #### [facility] [address] [place] [address] Dr. Tho Medina DIFF REQNONormalThe [facility] HospitalComment on above: Performed By: #### PREGU, ERUR, UMICRO #### [facility] [address] [place] [address] Dr. Tho Sung (RBC) [Entitic mass]29.9 ncUpqwqs80.7-34.0The [facility] HospitalComment on above:Performed By: #### PREGU, ERUR, UMICRO #### [facility] [address] [place] [address] Dr. Tho Sung (RBC) [Mass/Vol]33.3 g/oSNvvloh26.9-35.2The [facility] HospitalComment on above:Performed By: #### PREGU, ERUR, UMICRO #### [facility] [address] [place] [address] Dr. Tho Sung (RBC) [Entitic vol]89.6 kSOafrfx48.0-99.0The [facility] HospitalComment on above:Performed By: #### PREGU, ERUR, UMICRO #### [facility] [address] [place] [address] Dr. Tho Camp #0.6 103/ulNormal0.3-0.8The [facility] HospitalComment on above:Performed By: #### PREGU, ERUR, UMICRO #### [facility] [address] [place] [address] Dr. Tho Espinalocytes/100 WBC (Bld)5.5 %Normal1.7-12.0[facility] Comment on above:Performed By: #### PREGU, ERUR, UMICRO #### [facility] [address] [place] [address] Dr. Tho MichaudUT #8.0 103/ulCritically high1.4-6.5[facility] Comment on above:Performed By: #### PREGU, ERUR, UMICRO #### [facility] [address] [place] [address] Dr. Tho Michaudutrophils/100 WBC (Bld)70.7 %Hhnxlc22.0-75.0The [facility] HospitalComment on above:Performed By: #### PREGU, ERUR, UMICRO #### [facility] [address] [place] [address] Dr. Tho HardyPlatelet mean volume (Bld) [Entitic vol]10.7 fLNormal9.5-13.5The [facility] HospitalComment on above:Performed By: #### PREGU, ERUR, UMICRO #### [facility] [address] [place] [address] Dr. Tho HardyPLT220 103/ciKidocn870-202Pjq [facility] HospitalComment on above: Performed By: #### PREGU, ERUR, UMICRO #### [facility] [address] [place] [address] Dr. Tho HardyRBC4.82 106/ulNormal4.20-5.40The [facility] HospitalComment on above:Performed By: #### PREGU, ERUR, UMICRO #### [facility] [address] [place] [address] Dr. Tho HardyWBC11.3 103/ulCritically high4.0-11.0The [facility] HospitalComment on above:Performed By: #### PREGU, ERUR, UMICRO #### [facility] [address] [address] [address] Tho HardyCT ABD/PELV W CONon [id number] ABD/PELV W CONEXAMINATION: CT ABD/PELV W CON HISTORY:Epigastric Pain , [...] Electronically authenticated by: ISH HECTOR Date: 2022-08-04 05:28[facility] HospitalLACTATE/LACTIC ACIDon [id number] [Moles/Vol]1.0 mmol/L Normal0.4-1.9The [facility] HospitalComment on above:Performed By: #### LACT #### [facility] [address] [address] [address] Tho HardyLactate [Moles/Vol]1.2 mmol/LNormal0.4-1.9[facility] Comment on above:Performed By: #### LACT #### [facility] [address] [place], [place] [address] Dr. Tho HardyLIPASEon [id number] [Catalytic activity/Vol]72.0 U/L Critically low73.0-393.0The [facility] on above:Performed By: #### PREGU, ERUR, UMICRO #### [facility] [address] [place] [address] Dr. Tho Sanon 14(COMP METB)on [id number] [Mass/Vol]3.7 g/dLNormal 3.4-5.0The [facility] HospitalComment on above:Performed By: #### PREGU, ERUR, UMICRO #### [facility] [address] [place] [address] Dr. Tho HardyAlbumin/Globulin [Mass ratio]0.9 {ratio}NormalThe [facility] HospitalComment on above:Performed By: #### PREGU, ERUR, UMICRO #### [facility] [address] [place] [address] Dr. Tho Judge [Catalytic activity/Vol]83 U/WAuvljh28-296Acm [facility] on above:Performed By: #### PREGU, ERUR, UMICRO #### [facility] [address] [place] [address] Dr. Tho Barber [Catalytic activity/Vol]36 U/TNehxgr50-61Omg [facility] on above:Performed By: #### PREGU, ERUR, UMICRO #### [facility] [address] [place] [address] Dr. Tho Hidalgo gap [Moles/Vol]9.7 mmol/LNormalThe [facility] on above:Performed By: #### PREGU, ERUR, UMICRO #### [facility] [address] [place] [address] Dr. Tho HardyAST [Catalytic activity/Vol]19 U/ZHcqyzf52-41Pcg [facility] on above:Performed By: #### PREGU, ERUR, UMICRO #### [facility] [address] [place] [address] Dr. Tho HardyBilirubin [Mass/Vol]0.3 mg/dLNormal0.2-1.0[facility] Comment on above:Performed By: #### PREGU, ERUR, UMICRO #### [facility] [address] [address] [address] Tho HardyCalcium [Mass/Vol]8.9 mg/dLNormal8.5-10.1[facility] Comment on above:Performed By: #### PREGU, ERUR, UMICRO #### [facility] [address] [place] [address] Dr. Tho HardyChloride [Moles/Vol]103 mmol/PIxoxip85-733Wor [facility] Comment on above:Performed By: #### PREGU, ERUR, UMICRO #### [facility] [address] [place] [address] Dr. Tho HardyCO2 [Moles/Vol]27.8 mmol/WSjfrvv34.0-32.0[facility] Comment on above:Performed By: #### PREGU, ERUR, UMICRO #### [facility] [address] [place] [address] Dr. Tho HardyCreatinine [Mass/Vol]0.62 mg/dLNormal0.55-1.02The [facility] HospitalComment on above:Performed By: #### PREGU, ERUR, UMICRO #### [facility] [address] [place] [address] Dr. Tho RosalesGFR-AF VINCENTIAN>60Normal>=60The [facility] HospitalComment on above:Performed By: #### PREGU, ERUR, UMICRO #### [facility] [address] [place] [address] Dr. Tho RosalesGFR-NON AF VINCENTIAN>60Normal>=60[facility] HospitalComment on above:Performed By: #### PREGU, ERUR, UMICRO #### [facility] [address] [place] [address] Dr. Tho HardyGlobulin (S) [Mass/Vol]3.9 g/dLNormalThe [facility] HospitalComment on above:Performed By: #### PREGU, ERUR, UMICRO #### [facility] [address] [address] [address] Tho HardyGlucose [Mass/Vol]98 mg/wOHgaqox94-908LuaNorwalk Memorial Hospital Comment on above:Performed By: #### PREGU, ERUR, UMICRO #### [facility] [address] [address] [address] Tho HardyPotassium [Moles/Vol]3.5 mmol/LNormal3.5-5.1[facility] Comment on above:Performed By: #### PREGU, ERUR, UMICRO #### [facility] [address] [address] [address] Tho HardyProtein [Mass/Vol]7.6 g/dLNormal6.4-8.2[facility] Comment on above:Performed By: #### PREGU, ERUR, UMICRO #### [facility] [address] [place] [address] Dr. Tho HardySodium [Moles/Vol]137 mmol/IAodjnw924-155AmiNorwalk Memorial Hospital Comment on above:Performed By: #### PREGU, ERUR, UMICRO #### [facility] [address] [place] [address] Dr. Tho HardyUrea nitrogen [Mass/Vol]18.0 mg/dLNormal7.0-18.0[facility] HospitalComment on above:Performed By: #### PREGU, ERUR, UMICRO #### [facility] [address] [place] [address] Dr. Tho HardyUrea nitrogen/Creatinine [Mass ratio]29.0 mg/mgNormalThe [facility] HospitalComment on above:Performed By: #### PREGU, ERUR, UMICRO #### [facility] [address] [place] [address] Dr. Tho HardyXR CHEST 1 Von [id number] CHEST 1 VXR CHEST 1 V 08/04/2022 12:40 AM EST [...] Electronically authenticated by: JOLENE TIMMONS Date: 2022-08-04 02:02[facility] HospitalD-DIMERon [id number]-DIMER0.23 mg/L FEUNormal<=0.59[facility] HospitalComment on above:Performed By: #### RICHARDSON PATEL UMICRO #### [facility] [address] [address] [address] Tho Lewis-DIMER COMMENTSSEE BELOWOhioHealth Marion General HospitalComment on above:Result Comment: Increases in D-Dimer concentration observed with thromboembolic events [...] and generalized hospitalization. Performed By: #### RICHARDSON PATEL UMICRO #### [facility] [address] [address] [address] Tho HardyXR HIP LT 2 3V W PELVISon [id number] HIP LT 2 3V W PELVISEXAM: XR HIP LT 2 3V W PELVIS [...] Electronically authenticated by: JOSIE KING Date: 2022-07-08 23:54NoFort [facility] HospitalUS PELVIS TRANSVAGon [id number] PELVIS TRANSVAGEXAM: Pelvic ultrasound HISTORY: Cyst of the ovary [...] Electronically authenticated by: AYAD BIGGS Date: 2022-05-01 10:25[facility] [id number] Visit ([facility]) CONNIE SALCIDO ([id number]) 1995 F Date Time Provider Department 04/26/22 1:30 PM CARLOS TARIQ [facility] During your visit today, we recorded the following information about you: Pulse Blood pressure Weight Height 104/minute 140/84 138.3 kg 1.524 m Last Period 04/19/22 Jess Suero MA 04/26/2022 1:37 PM Signed What is the reason for your visit today? TRACTOR DISTRIBUTOR hernia Who is your referring physician? self [...] Carlos Tariq MD Referring Provider: NOAH WALTON [[id number]] Allergies As of Date: 04/26/2022 Noted Allergy [...] is the reason for your visit today? TRACTOR DISTRIBUTOR hernia Who is your referring physician? 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 NO Have you had unintentional weight loss of 15 lbs/7 Kg in the last 3-6 months? NO Bowels: regular Wound: none Temperature: No Drains: No Encounter Status:Closed by CARLOS TARIQ on [facility]/22[facility]LV W CONon [id number] ABD/PELV W CONStudy: CT ABD/PELV W CON TECHNIQUE: Axial slices [...] appendix is normal. Vascular: No significant abnormality. Mesentery/retroperitoneum: No free fluid, free air or focal [...] Electronically authenticated by: YENI PARNELL Date: 2022-04-12 00:02[facility] AUTO DIFFon [id number] #0.0 103/ulNormal0.0-0.1[facility] HospitalComment on above:Performed By: #### RICHARDSON PATEL UMICRO #### [facility] [address] [address] [address] Tho HardyBasophils/100 WBC (Bld)0.2 %Normal0.2-2.0[facility] Comment on above:Performed By: #### RICHARDSON PATEL UMICRO #### [facility] [address] [address] [address] Tho Saeed #0.1 103/ulNormal0.0-0.7The [facility] HospitalComment on above: Performed By: #### RICHARDSON PATEL UMICRO #### [facility] [address] [address] [address] Tho Rosalesosinophils/100 WBC (Bld)0.7 %Critically low0.9-7.0The [facility] HospitalComment on above:Performed By: #### JOHNATHANURICHARDSON UMICRO #### [facility] [address] [address] [address] Tho Rosalesrythrocyte distribution width (RBC) [Ratio]13.4 %Gjfovr62.0-15.0 The [facility] HospitalComment on above:Performed By: #### PREGU, ERUR, UMICRO #### [facility] [address] [place] [address] Dr. Tho HardyHematocrit (Bld) [Volume fraction]39.9 %Ddzfiq04.0-48.0The [facility]imson HospitalComment on above:Performed By: #### PREGU, ERUR, UMICRO #### [facility] [address] [place] [address] Dr. Tho HardyHemoglobin (Bld) [Mass/Vol]13.3 g/tQYxduoj07.0-16.0The [facility] HospitalComment on above:Performed By: #### PREGU ERUR, UMICRO #### [facility] [address] [place] [address] Dr. Tho Rios #0.04 10e3/ulCritically high0.00-0.03[facility] Comment on above:Performed By: #### PREGUKRISTIANR, UMICRO #### [facility] [address] [place] [address] Dr. Tho Rios %0.4 %Normal0.0-0.5The [facility] HospitalComment on above: Performed By: #### PREGU, ERUR, UMICRO #### [facility] [address] [place] [address] Dr. Tho Robles #2.8 103/ulNormal1.2-3.8The [facility] HospitalComment on above:Performed By: #### PREGU, ERUR, UMICRO #### [facility] [address] [place] [address] Dr. Tho Hallmphocytes/100 WBC (Bld)31.1 %Ktdcrr27.5-60.0The [facility] HospitalComment on above:Performed By: #### PREGU, ERUR, UMICRO #### [facility] [address] [address] [address] Tho Medina DIFF REQNONormalThe [facility] HospitalComment on above: Performed By: #### PREGU, ERUR, UMICRO #### [facility] [address] [place] [address] Dr. [facility]ED[facility] (RBC) [Entitic mass]29.8 bnOcrebv85.7-34.0The [facility]son HospitalComment on above:Performed By: #### PREGU, ERUR, UMICRO #### [facility] [address] [place] [address] Dr. [facility]EDGEWO[facility] (RBC) [Mass/Vol]33.3 g/qDZeabds28.9-35.2The [facility] HospitalComment on above:Performed By: #### PREGU, ERUR, UMICRO #### [facility] [address] [place] [address] Dr. Tho Sung (RBC) [Entitic vol]89.5 eQPvpney43.0-99.0The [facility] HospitalComment on above:Performed By: #### PREGU, ERUR, UMICRO #### [facility] [address] [place] [address] Dr. Tho Camp #0.7 103/ulNormal0.3-0.8The [facility] HospitalComment on above:Performed By: #### PREGU, ERUR, UMICRO #### [facility] [address] [place] [address] Dr. Tho Espinalocytes/100 WBC (Bld)7.3 %Normal1.7-12.0[facility] Comment on above:Performed By: #### PREGU, ERUR, UMICRO #### [facility] [address] [place] [address] Dr. Tho Swanson #5.4 103/ulNormal1.4-6.5The [facility] HospitalComment on above:Performed By: #### PREGU, ERUR, UMICRO #### [facility] [address] [place] [address] Dr. Tho Michaudutrophils/100 WBC (Bld)60.3 %Bygrtq49.0-75.0The [facility] HospitalComment on above:Performed By: #### PREGU, ERUR, UMICRO #### [facility] [address] [place] [address] Dr. Tho De Los Santos mean volume (Bld) [Entitic vol]9.1 fLCritically low 9.5-13.5The [facility] HospitalComment on above:Performed By: #### PREGU, ERUR, UMICRO #### [facility] [address] [place] [address] Dr. Tho HardyPLT249 103/tbOecoko295-598Kib [facility] HospitalComfresenius [facility] on above: Performed By: #### PREGU, ERUR, UMICRO #### [facility] [address] [place] [address] Dr. Tho HardyRBC4.46 106/ulNormal4.20-5.40The [facility] HospitalComfresenius [facility] on above:Performed By: #### PREGU, ERUR, UMICRO #### [facility] [address] [place] [address] Dr. Tho DoanBC9.0 103/ulNormal4.0-11.0The [facility] HospitalComfresenius [facility] on above: Performed By: #### PREGU, ERUR, UMICRO #### [facility] [address] [place] [address] Dr. Tho Cardoso URINE PROFILEon 63-97-7027Mnoqzfqzp Ql (U)NegativeNormal NEGATIVEThe [facility] HospitalComment on above:Performed By: #### BMP #### [facility] [address] [place] [address] Dr. Tho Bronson (U)CLEARNormalCLEARThe [facility] HospitalComment on above: Performed By: #### BMP #### [facility] [address] [place] [address] Dr. Tho Hernandes (U)YELLOWNormalYELLOWThe [facility] HospitalComment on above: Performed By: #### BMP #### [facility] [address] [address] [address] Tho Hatch micrscopic examination will be performed if indicated. NormalThe [facility] HospitalComment on above:Performed By: #### BMP #### [facility] [address] [address] [address] Tho HardyGlucose Ql (U)NegativeNormalNEGATIVENorwalk Memorial HospitalComment on above:Performed By: #### BMP #### [facility] [address] [address] [address] Tho HardyHemoglobin Ql (U)MODERATEAbnormalNEGATIVENorwalk Memorial Hospital Comment on above:Performed By: #### BMP #### [facility] [address] [place] [address] Dr. Tho HardyKetones Ql (U)NegativeNormalNEGATIVENorwalk Memorial HospitalComment on above:Performed By: #### BMP #### [facility] [address] [place] [address] Dr. Tho HardyLEUKOCYTESNegativeNormalNEGATIVENorwalk Memorial HospitalComment on above:Performed By: #### BMP #### [facility] [address] [place] [address] Dr. Tho HardyNitrite Ql (U)NegativeNormalNEGATIVENorwalk Memorial HospitalComment on above:Performed By: #### BMP #### [facility] [address] [address] [address] Tho HardypH (U)5.5 [pH]Normal5-9Nor[facility] Memorial HospitalComment on above: Performed By: #### BMP #### [facility] [address] [place] [address] Dr. Tho HardySPEC GRAVITY>=1.449Fqradqvw7.005-<=1.025[facility] Comment on above:Performed By: #### BMP #### [facility] [address] [place] [address] Dr. Tho HardyUA PROTEINNegativeNormalNEGATIVE/ TRACEThe [facility] Comment on above:Performed By: #### BMP #### [facility] [address] [place] [address] Dr. Tho Garcia MICRO INDINDICATEDNormalThe [facility] HospitalComment on above: Performed By: #### BMP #### [facility] [address] [place] [address] Dr. Tho HardyUrobilinogen Qn (U)0.2 {Roland'U}/dLNormal0.2 - 1.0The [facility] HospitalComment on above:Performed By: #### BMP #### [facility] [address] [place] [address] Dr. Tho HardyLIPASEon [id number] [Catalytic activity/Vol]88.0 U/LNormal 73.0-393.0The [facility] HospitalComment on above:Performed By: #### LACT #### [facility] [address] [place] [address] Dr. Tho Najera HCG QUALon [id number], QUALNegativeNormalNEGATIVE The [facility] HospitalComment on above:Performed By: #### PREG #### [facility] [address] [place] [address] Dr. Tho Sanon 14(COMP METB)on 18-33-2530Ayfmcil [Mass/Vol]3.5 g/dLNormal 3.4-5.0The [facility] HospitalComment on above:Performed By: #### LACT #### [facility] [address] [place] [address] Dr. Tho HardyAlbumin/Globulin [Mass ratio]0.9 {ratio}NormalThe [facility] HospitalComment on above:Performed By: #### LACT #### [facility] [address] [place] [address] Dr. Tho BeltránP [Catalytic activity/Vol]73 U/QKpkevt36-263Znq [facility] HospitalComment on above:Performed By: #### LACT #### [facility] [address] [place] [address] Dr. Tho BeltránT [Catalytic activity/Vol]29 U/BAuntex22-58Luo [facility] HospitalComment on above:Performed By: #### LACT #### [facility] [address] [place] [address] Dr. Tho Garciaon gap [Moles/Vol]10.4 mmol/LNormalThe [facility] Comment on above:Performed By: #### LACT #### [facility] [address] [place] [address] Dr. Tho HardyAST [Catalytic activity/Vol]15 U/WYwozwr32-81Gus [facility] HospitalComment on above:Performed By: #### LACT #### [facility] [address] [place] [address] Dr. Tho HardyBilirubin [Mass/Vol]0.4 mg/dLNormal0.2-1.0[facility] Comment on above:Performed By: #### LACT #### [facility] [address] [place] [address] Dr. Tho HardyCalcium [Mass/Vol]8.4 mg/dLCritically low8.5-10.1The [facility] HospitalComment on above:Performed By: #### LACT #### [facility] [address] [place] [address] Dr. Tho HardyChloride [Moles/Vol]103 mmol/DQehkvs77-649Hri [facility] Comment on above:Performed By: #### LACT #### [facility] [address] [place] [address] Dr. Tho HardyCO2 [Moles/Vol]27.8 mmol/BWkycrp02.0-32.0[facility] Comment on above:Performed By: #### LACT #### [facility] [address] [place] [address] Dr. Tho HardyCreatinine [Mass/Vol]0.75 mg/dLNormal0.55-1.02The [facility] HospitalComment on above:Performed By: #### LACT #### [facility] [address] [place] [address] Dr. Yilan ChangEGFR-AF VINCENTIAN>60Normal>=60The [facility] HospitalComment on above:Performed By: #### LACT #### [facility] [address] [place] [address] Dr. Tho RosalesGFR-NON AF VINCENTIAN>60Normal>=60The [facility] HospitalComment on above:Performed By: #### LACT #### [facility] [address] [place] [address] Dr. Tho HardyGlobulin (S) [Mass/Vol]3.7 g/dLNormMercer County Community HospitalComment on above:Performed By: #### LACT #### [facility] [address] [place] [address] Dr. Tho HardyGlucose [Mass/Vol]88 mg/zPByiekw08-317EvmNorwalk Memorial Hospital Comment on above:Performed By: #### LACT #### [facility] [address] [place] [address] Dr. Tho HardyPotassium [Moles/Vol]3.2 mmol/LCritically low3.5-5.1The [facility] HospitalComment on above:Performed By: #### LACT #### [facility] [address] [place] [address] Dr. Tho HardyProtein [Mass/Vol]7.2 g/dLNormal6.4-8.2[facility] Comment on above:Performed By: #### LACT #### [facility] [address] [place] [address] Dr. Tho HardySodium [Moles/Vol]138 mmol/CEybblv820-329IarNorwalk Memorial Hospital Comment on above:Performed By: #### LACT #### [facility] [address] [place] [address] Dr. Tho HardyUrea nitrogen [Mass/Vol]13.0 mg/dLNormal7.0-18.0The [facility] HospitalComment on above:Performed By: #### LACT #### [facility] [address] [place] [address] Dr. Tho HardyUrea nitrogen/Creatinine [Mass ratio]17.3 mg/mgNormSentara Albemarle Medical Centerevue HospitalComment on above:Performed By: #### LACT #### [facility] [address] [place] [address] Dr. Tho HardyPROTIMEon 15-45-5085NTM Coag (PPP) [Relative time]0.97 {INR} NormalNorwalk Memorial HospitalComment on above:Performed By: #### PREGRICHARDSON Kramer UMICRO #### [facility] [address] [place] [address] Dr. Tho Knight GUIDELINESSEE BELOWOhioHealth Marion General HospitalComment on above:Result Comment: DESIRED INR: 2.0 - 3.0 CONDITIONS NOT LISTED BELOW 2.5 - 3.5 FOR PROSTHETIC HEART VALVE REPLACEMENT 2.5 - 3.5 RECURRENT THROMBOSIS Performed By: #### KRISTIAN PATELR UMICRO #### [facility] [address] [place] [address] Dr. Tho Roman Coag (PPP) [Time]10.5 sNormal9.0-11.6ThFirelands Regional Medical Center Comment on above:Performed By: #### RICHARDSON PATEL UMICRO #### [facility] [address] [place] [address] Dr. Tho Domínguez 08-06-6124kDFG Coag (Bld) [Time]27.8 hCzgswf14.3-36.2Norwalk Memorial HospitalComment on above:Performed By: #### RICHARDSON PATEL UMICRO #### [facility] [address] [place] [address] Dr. Tho Motley MICROSCOPIC ONLYon 33-76-9713FBAYEFAVDTNB SEENNormalNONE SEENNorwalk Memorial HospitalComment on above:Performed By: #### BMP #### [facility] [address] [place] [address] Dr. Tho Causey identified Cx Nom (U)NOT INDICATEDNoFort Hamilton HospitalComment on above:Performed By: #### BMP #### [facility] [address] [place] [address] Dr. Yilan ChangCASTNONE SEENNormalNONE SEENNorwalk Memorial HospitalComfresenius medical care [facility] on above:Performed By: #### BMP #### [facility] [address] [address] [address] Tho HardyCrystals LM Nom (Urine sed)NONE SEENNormalNONE SEENNorwalk Memorial HospitalComfresenius medical care [facility] on above:Performed By: #### BMP #### [facility] [address] [address] [address] Nettles ChangEpithelial cells LM Ql (Urine sed)NONE SEENNormalNONE SEEN /RARE The [facility] HospitalComfresenius medical [facility] on above:Performed By: #### BMP #### [facility] [address] [place] [address] Dr. Tho LandaCOUSROXANN SEENNormalNONE SEENBellevue Hospital on above:Performed By: #### BMP #### [facility] [address] [place] [address] Dr. Tho HardyErwquATD4-3Quxashnq5-5Bti [facility] HospitalComfresenius [facility] on above:Performed By: #### BMP #### [facility] [address] [place] [address] Dr. Tho HardyWBCROXANN SEENNormalNONE SEENNorwalk Memorial HospitalComfresenius medical [facility] on above: Performed By: #### BMP #### [facility] [address] [place] [address] Dr. Tho HardyXR ANKLE LT MIN 3 Von 06-71-7299LO ANKLE LT MIN 3 VEXAM: XR ANKLE LT MIN 3 V HISTORY: Left ankle pain COMPARISON: None. TECHNIQUE: 3 views FINDINGS: No osseous lesion, fracture, dislocation or subluxation. Joint spaces are normal. No visualized effusion. No visualized soft tissue edema. IMPRESSION: Normal x-rays Electronically authenticated by: AYAD CORTEZ Date: 2022-02-06 19:06[facility] Vital Signs Date TimeVital SignValuePerforming TraabbphmDvhlifmr13-19-3243 15:05-0400Body mass index (BMI) [Ratio]56.14 kg/x6Xhzue Isabelle DO Work Phone: [phone] [place], [place] [address]Qtykbvjimh99-24-2581 15:05-0400Body cbcaiz568.77 kgCorey Isabelle DO Work Phone: [facility] KirkwoodSmotwhzcht56-20-0422 15:05-0400Diastolic blood gqtenqgq07 mm[Hg]Noah Isabelle DO Work Phone: [phone] [place], [place] [address]Muoegdipsq38-90-1929 15:05-0400Systolic blood megubdfa231 mm[Hg]Noah Isabelle DO Work Phone: [phone] [place], [place] [address]Fnegiosqat90-39-9104 15:10-0500Body mass index (BMI) [Ratio]53.31 kg/n6Mavnb Isabelle DO Work Phone: [phone]01-06-2025 15:10-0500Body .97 kgCorey Isabelle DO Work Phone: [phone] [place], [place] [address]Kztiqjvukg45-75-2723 15:10-0500Diastolic blood mwgrysle30 mm[Hg]Noah Isabelle DO Work Phone: [phone] [place], [place] [address]Pmnzazpnss67-88-4533 15:10-0500Systolic blood beihkxhu284 mm[Hg]Noah Isabelle DO Work Phone: [phone] [place], [place] [address]Smziiyvxrg09-87-0823 14:03-0400Body huobux776.81 kgRosa Maria Israel MD Work Phone: [facility]09-08-2022 12:56-0400Body .[address] Work Phone: [facility]09-08-2022 12:56-0400Body .81 kgElyse Dirk [place] Work Phone: [facility] Encounters Encounter DateEncounter TypeCare ProviderFacilityStart: 06-29-2025 End: 12-56-8637xznuuivyilWVAWRAYCentervilletart: 05-11-2025 End: 64-69-0131xsqmdwvtvkCXPRTJKCentervilletart: 05-06-2025 End: 45-43-8909Yamybvwcp department patient visitDOUGLAS M [facility] Centertart: 04-29-2025 End: 24-80-7610rjkxbzuwlhUDEFANHCentervilletart: 01-33-9067evnyxokzshRCKXING M [facility] Centertart: 03-30-2025 End: 68-90-4633dnhkwpacbxMQWXNLMCentervilletart: 03-30-2025 End: 18-52-7091sxzzkcdzggXZSBPOOCentervilletart: 03-25-2025 End: 78-52-0191hvaygocujdBPAZNYQCentervilletart: 12-21-2024 End: 21-12-2376Wazxwdh encounter procedureCorey Isabelle DO Work Phone: [facility] Work Phone: Start: 12-21-2024 End: 07-13-2097Owuqtzin preventive med est patient 18-39 yrsCorey Isabelle DO Work Phone: [facility] BCP OBComment on above:Well woman exam with routine gynecological exam; Sweating abnormality; Status post hysterectomy; Vaginal dryness; BV (bacterial vaginosis); Yeast infection of the vaginaStart: 12-21-2024 End: 05-40-0768minxllmcwdICDSX FAZIONot AvailableStart: 12-21-2024 End: 06-81-3257Dgmynm flowsheetCorey Isabelle DO Work Phone: [facility] BCP OBStart: 12-21-2024 End: 67-43-7533Gilmzq flowsheetCorey Isabelle DO Work Phone: [facility] BCP OBStart: 12-21-2024 End: 57-62-7878Wohtvkkmj Result EncounterCorey Isabelle DO Work Phone: [facility] External Department UnsolicitedStart: 09-13-2024 End: 64-98-6104Difeql outpatient visit 15 minutesCorey Isabelle DO Work Phone: [facility] BCP OBComment on above:Sweating abnormality; Status post hysterectomy; Vaginal drynessStart: 09-13-2024 End: 12-34-3664hcssbxsyyzHLQQZ FAZIONot AvailableStart: 09-13-2024 End: 93-27-2818Tunivm flowsheetCorey Isabelle DO Work Phone: NOHM BCP OBStart: 09-13-2024 End: 99-56-8739Iiylgx flowsheetCorey Isabelle DO Work Phone: [facility] BCP OBStart: 01-06-2024 End: 97-33-0474lkojwtuwyrYTVLYSOE E PERRYFacility:EU BellevueStart: 11-11-2023 End: 31-11-5278jenpnaowyuRNBYTRNU E PERRYFacility:EU BellevueStart: 10-14-2023 End: 11-67-6908Wnsxhwziz Result EncounterCorey Isabelle DO Work Phone: [facility] External Department UnsolicitedStart: 10-14-2023 End: 67-80-8460Mrdgmaukk Result EncounterCorey Isabelle DO Work Phone: [facility] External Department UnsolicitedStart: 08-19-2023 End: 67-63-7066ucwcptjmkzOxiohs X OrzechFacility:EU BellevueStart: 12-30-2022 End: 04-71-3127guanoxwzmdQF DONAVON WHITMAN .Facility:W5Ouxpx: 12-17-2022 End: 94-52-5092gazdkdizslFD NOAH WALTON .Facility:M3Fbnbo: 11-13-2022 End: 18-87-3905pqyjdhldceUP DOUGLAS HOY .Facility:B7Nhodr: 49-72-4884zgwantwgse DR [address] .Facility:T5Kmulv: 2022 End: 11-32-9611orvrkcboxjEKSWOECD CULLENFacility:T9Zvaxx: 10-14-2022 End: 16-96-4428fvxxsiuxaxKSNFWJZ M MANONFacility:F2Jbhjp: 09-26-2022 End: 63-31-5311oxjtnelzhwAOZYXXG M MANONFacility:C6Qdytn: 08-04-2022 End: 37-98-0004gddkkmdxfyPIMMP PARKERFacility:P8Vbblw: 07-09-2022 End: 54-66-7425hijkwlxudsWM HERNAN MARKER .Facility:Q2Amdll: 05-16-2022 End: 61-21-5420Kljtdke encounter statusRosa Maria Israel MD Work Phone: Endocrinology BMIStart: 05-16-2022 End: 62-12-0778bupmveelrbIlopufn A Gorty MD Work Phone: Endocrinology BMIComment on above:Abnormal weight gain (Primary Dx); Preop testing; Morbid obesity with BMI of 50.0-59.9, adult (HCC); HANH (obstructive sleep apnea)Body mass index 50.0-59.9, adult (HCC) (Primary Dx); Dietary counseling and surveillanceStart: 05-16-2022 End: 95-62-1692Gvgcusejbvrq consultation with Estrella Israel MD Work Phone: GABRIELA MCCOY FHCStart: 05-01-2022 End: 30-53-8507ffzuxhvserHM NOAH ISABELLE .Facility:Y6Fxlti: 04-11-2022 End: 29-32-0630nqejafwwqrEM VALERIE HOY .Facility:N9Jefff: 03-21-2022 End: 74-70-7102ybnvjniylzENXZWADM CULLENFacility:S8Qpshn: 03-18-2022 End: 73-06-0347kcnwtgsaqiLV VALERIE HOY .Facility:F5Ulsac: 03-14-2022 End: 73-45-8601ogcgauboguKRSK GULATIFacility:L5Ptkjy: 02-14-2022 End: 50-10-4340mqeqenxfbvYKNZIMUE CULLENFacility:Z7Jvozm: 02-06-2022 End: 75-46-9524vqcypeahgkQR VALERIE HOY .Facility:[address] DateProcedureProcedure DetailPerforming ClinicianStart: 59-43-3820MNA,APTIMA HPV,AGE GDLNCorey Isabelle DO Work Phone: Start: 73-34-1462Quyleunehwl observation [Identifier] in Cervix by Cyto stainCorey Isabelle DO Work Phone: Start: 26-98-2982SY PELVIS W/ TRANSVAGINALCorey Isabelle DO Work Phone: Start: 24-64-3223Yexdpwyjqpx observation [Identifier] in Cervix by Cyto stainCorey Isabelle DO Work Phone: H/O: hysterectomyStatus post hysterectomyCorey Isabelle DO Work Phone: H/O: hysterectomyStatus post hysterectomyCorey Isabelle DO Work Phone: Plan of Treatment DateCare ActivityDetailAuthorStart: 66-89-2844Moaohprdd for malignant neoplasm of cervixNOMS HealthcareStart: 12-28-2025 End: 20-29-4951Dxcqvmz encounter procedureNOMS BCP OBStart: 66-60-9235Sfxloeofe for malignant neoplasm of cervixNOMS HealthcareStart: 37-36-2341Ktrpgltjs vaccinationNOMS HealthcareStart: 12-21-2024 End: 08-75-3797Hhoajuy encounter nvjkecbyl08/15/2025 3:00 PM EDT Office Visit [facility] [address] [place] [address] Noah Walton, DO [address] [place] [address] ArrivedNOMS BCP OBComment on above:ArrivedStart: 09-13-2024 End: 96-45-2239Otpdkae encounter kxmgvyodg50/06/2025 2:50 PM EST Office Visit [facility] [address] [place] [address] Noah Walton, DO [address] [place], [place] [address] ArrivedNOMS BCP OBComment on above:ArrivedStart: 87-62-6859Pdaptbhjw vaccinationInfluenza Vaccine (#1)[facility] HealthcareStart: 09-59-0437Hwodqduad for malignant neoplasm of cervixHPV/CotestNOMS Healthcare Start: 05-16-2022 End: 218522-loyehoyyhsuaru D3 [Mass/volume] in Serum or PlasmaVITAMIN D 25 HYDROXY Lab Routine Abnormal weight gain Preop testing Morbid obesity with BMI of 50.0-59.9, adult (HCC) HANH (obstructive sleep apnea) Expected: 05/16/2022 (Approximate), Expires: 05/14/2023[facility] Work Phone: Comment on above:Expected: 05/16/2022 (Approximate), Expires: 05/14/2023Start: 05-16-2022 End: 82-52-9020HVH panel - Blood by Automated countCBC Lab Routine Abnormal weight gain Preop testing Morbid obesity with BMI of 50.0-59.9, adult (HCC) HANH (obstructive sleep apnea) Expected: 05/16/2022 (Approximate), Expires: 05/14/2023[facility] Work Phone: Comment on above:Expected: 05/16/2022 (Approximate), Expires: 05/14/2023Start: 05-16-2022 End: 52-77-6362Slrmeovfq (Vitamin B12) [Mass/volume] in Serum or PlasmaVITAMIN B12 BLOOD Lab Routine Abnormal weight gain Preop testing Morbid obesity with BMI of 50.0-59.9, adult (HCC) HANH (obstructive sleep apnea) Expected: 05/16/2022 (Approximate), Expires: 05/14/2023[facility] Work Phone: Comment on above:Expected: 05/16/2022 (Approximate), Expires: 05/14/2023Start: 05-16-2022 End: 76-99-2774Crtveqntkbktg metabolic 2000 panel - Serum or PlasmaCOMP METABOLIC PANEL Lab Routine Abnormal weight gain Preop testing Morbid obesity with BMI of 50.0-59.9, adult (HCC) HANH (obstructive sleep apnea) Expected: 05/16/2022 (Approximate), Expires: 05/14/2023[facility] Work Phone: Comment on above:Expected: 05/16/2022 (Approximate), Expires: 05/14/2023Start: 05-16-2022 End: 02-25-6013Veuztv [Mass/volume] in Serum or PlasmaFOLATE SERUM Lab Routine Abnormal weight gain Preop testing Morbid obesity with BMI of 50.0-59.9, adult (HCC) HANH (obstructive sleep apnea) Expected: 05/16/2022 (Approximate), Expires: 05/14/2023[facility] Work Phone: Comment on above:Expected: 05/16/2022 (Approximate), Expires: 05/14/2023Start: 05-16-2022 End: 93-98-8546Qkgriavwyg A1c in BloodHGB A1C Lab Routine Abnormal weight gain Preop testing Morbid obesity with BMI of 50.0-59.9, adult (HCC) HANH (obstructive sleep apnea) Expected: 05/16/2022 (Approximate), Expires: 05/14/2023[facility] Work Phone: Comment on above:Expected: 05/16/2022 (Approximate), Expires: 05/14/2023Start: 05-16-2022 End: 10-34-7218Nlgb and Iron binding capacity panel - Serum or PlasmaIRON + TIBC Lab Routine Abnormal weight gain Preop testing Morbid obesity with BMI of 50.0- 59.9, adult (HCC) HANH (obstructive sleep apnea) Expected: 05/16/2022 (Approximate), Expires: 05/14/2023[facility] Work Phone: Comment on above:Expected: 05/16/2022 (Approximate), Expires: 05/14/2023Start: 05-16-2022 End: 06-33-1345Omvitqhjlf.intact [Mass/volume] in Serum or PlasmaPTH INTACT BLD Lab Routine Abnormal weight gain Preop testing Morbid obesity with BMI of 50.0-59.9,adult (HCC) HANH (obstructive sleep apnea) Expected: 05/16/2022 (Approximate), Expires: 05/14/2023[facility] Work Phone: Comment on above:Expected: 05/16/2022 (Approximate), Expires: 05/14/2023Start: 05-16-2022 End: 77-70-9780Kmkbzxrgwhk [Units/volume] in Serum or PlasmaTSH BLD Lab Routine Abnormal weight gain Preop testing Morbid obesity with BMI of 50.0-59.9, adult ( HCC) HANH (obstructive sleep apnea) Expected: 05/16/2022 (Approximate), [facility]: [facility] Work Phone: Comment on above:Expected: 05/16/2022 (Approximate), Expires: 05/14/2023Start: 05-16-2022 End: 92-33-4014IKXXJMU B1 (THIAMINE), WHOLE BLOODVITAMIN B1 (THIAMINE), WHOLE BLOOD Lab Routine Abnormal weight gain Preop testing Morbid obesity with BMI of 50.0-59.9, adult (HCC) HANH (obstructive sleep apnea) Expected: 05/16/2022 (Approximate), [facility]: [facility] Work Phone: Comment on above:Expected: 05/16/2022 (Approximate), Expires: 07/16/2022tart: 95-39-4449Sgzjpmfwo vaccinationINFLUENZA (#1)[facility] Foundationtart: 28-02-4420OAWUS-19 VACCINE (3 - Booster for Pfizer series)COVID-19 VACCINE (3 - Booster for Pfizer series)[facility]: 88-34-3604QPV TESTINGPAP TESTINGCleveland Clinic Foundationtart: 10-47-4616Zvhho microalbumin profile DTAP,TDAP,TD (1 - Tdap)[facility]: 25-05-3490CLUCMIUCQ C SCREENING HEPATITIS C SCREENINGCleveland Clinic Foundationtart: 41-79-4099EJE SCREENINGHIV SCREENING [facility]: 23-26-4261Alfqx depression screening assessmentDEPRESSION SCREENINGCleveland Clinic Foundationtart: 72-46-5970HGJHDFABW B (1 of 3 - 3-dose series) HEPATITIS B (1 of 3 - 3-dose series)[facility] CenterCytology Cervical or vaginal smear or scraping studyPap Smear Pathology and Cytology Routine Well woman exam with routine gynecological exam Ordered: 12/21/2024[facility] Work Phone: comment on above:Ordered: 12/21/2024 End: 59-44-0730LMG COMPLETEECG COMPLETE ECG Routine Abnormal weight gain Preop testing Morbid obesity with BMI of 50.0-59.9, adult (HCC) HANH (obstructive sleep apnea) 1 Occurrences starting 05/16/2022 until 05/14/2023[facility] Work Phone: Comment on above:1 Occurrences starting 05/16/2022 until 05/14/2023Human papilloma virus DNA [Presence] in Unspecified specimen by Probe with amplificationHPV DNA probe, amplified Microbiology Routine Well woman exam with routine gynecological exam Ordered: 12/21/2024[facility] Kiha SoftwareComment on above:Ordered: 12/21/2024 End: 17-81-0439Bzwtnapids exam chest 2 viewsXR CHEST 2V FRONTAL/LAT Radiology Routine Abnormal weight gain Preop testing Morbid obesity with BMI of 50.0-59.9, adult (HCC) HANH (obstructive sleep apnea) 1 Occurrences starting 05/16/2022 until 06/13/2023[facility] Work Phone: Comment on above:1 Occurrences starting 05/16/2022 until 06/13/2023[facility] Immunizations Immunization DateImmunizationNotesCare IolewirdHdwwbeak44-97-3255nssxuvsed virus vaccine, unspecified formulationCorey Isabelle DO Work Phone: [facility] Payers DatePayer CategoryPayerPolicy ID2019Medicaid[place] [id number] 2018-Present [phone] [place] [address] [id number] 2019Medicaid (Managed Care)[employer] Member Subscriber Plan / Payer (Effective 2018-Present) Name: Connie Salcido Relation to Subscriber: Self Name: Connie Salcido Payer ID: Not on file Group ID: Not on file Type: Not on file Address: [address] [id number] 2.840.1.752611.3.57[id number] 2.840.1.255486.3.57[id number] 2.0.1.289915.3.579.2.08930-21-7715Hbzoqrt8501184 2.0.1.415464.3.579.2.25062-84-5908Xsqnuee8152113 2.840.1.773451.3.579.2.29209-76-2419Iivopma1912564 2.0.1.528131.3.579.2.45846-51-4501Rpiyaxe6835679 2.0.1.759501.3.579.2.42018-64-6169Okjtbfi3303068 2.0.1.774678.3.579.2.51512-16-6518Rivsoxv0858805 2.840.1.802739.3.579.2.04098-14-2199Mkgsafb5398231 2.0.1.995994.3.579.2.98738-27-0740Opyteyd6184970 2.840.1.769876.3.579.2.11985-42-6290Ugtbsnc7200556 2.840.1.057143.3.579.2.87254-12-7955Goyymlj3973873 2.16.840.1.982697.3.579.2.57065-17-9543Bdftxtp6808208 2.16.840.1.493660.3.579.2.60867-77-4274Aimyxtx8172446 2.16.840.1.283984.3.579.2.36443-93-5249Dtvuypt0552946 2.16.840.1.548796.3.579.2.25459-24-6243Ihsifjj39304766 2.16.840.1.370032.3.579.2.27875-67-7588Rnzdsci30259609 2.16.840.1.953350.3.579.2.16370-29-4854Ebofqro90493646 2.16.840.1.666521.3.579.2.71452-38-4333Uiqhduj1066142 2.16.840.1.067033.3.579.2.072618-41-9461Picpaay2638361 2.16.840.1.873971.3.579.2.542[id number] 2.16.840.1.986507.3.579.2.513911-63-9533Rjyocwm718813370 2.16840.1.842691.3.579.2.119528-89-1645Sckslct516865631369 Social History DateTypeDetailFacilityStart: 04-26-2022 End: 07-31-9095Cjmeihs smoking status NHISNever smoked tobaccoLakehealth Beachwood Medical Center Start: 04-26-2022 End: 25-34-6308Ituwtlu use and exposureSmokeless tobacco non-userCleveland Clinic Foundationtart: 17-15-6480Fen Assigned At BirthNot on [facility] Hospitaltart: 04-14-2022 End: 21-71-0950Nfichrqq to SARS-CoV-2 (event)Not sureCleveland Clinic Foundationtart: 05-05-2023 End: 25-42-3389Qximgkwwp beverage intakeEx-drinker (finding)[facility] Healthcare Start: 05-05-2023 End: 16-71-5707Nrusgym of Social functionAMERICAN FORK HOSPITAL HealthcareStart: 05-05-2023 End: 64-82-2895Lpcwrsc use panelAMERICAN FORK HOSPITAL HealthcareStart: 63-46-6763GmvYjcljfHOOH Healthcare Clinical Notes 02-15-2022 to 06-29-2025 Note Date & AnjiHjwsYjtrqrte13-21-4426 NoteSubjective Patient ID: Connie Salcido is a 29 y.o. female who presents for Post-op (Post Op: 2 month f/u , s/p 04/29/2025 robotic incisional hernia repair with mesh./). [...] Size: Large adult) Pulse 104 Temp 36.6 ???C (97.8 ???F) (Temporal) Resp 16 Physical Exam Constitutional: Appearance: [...] the past 36 hours). No follow-ups on file.[facility]09-03-2025 Note Subjective Patient ID: Connie Salcido is [...] the past 36 hours). 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 No orders of the defined types were placed in this encounter. No results found for this or any previous visit (from the past 36 hours). No follow-ups on file. Ion Kinsey, MS3 [facility] [employer] 05/11/25UnZanesville City Hospital08-22-2025 NotePatient: Connie Salcido Procedure Summary Date: 04/29/25 Room / Location: [facility] OPER[facility] ROOM 13 / [facility] Operating Room Anesthesia Start: 1231 Anesthesia Stop: [...] were no known notable events for this encounter.[facility]08-22-2025 NoteWriter answered multiple questions regarding self care and activity. Pt verbalized understanding and reminded that a physician is available 31/03 if any farther questions.[facility]08-22-2025 NoteAirway Date/Time: 04/29/2025 12:44 PM Reason: elective Airway not difficult General Information and Staff Patient location during procedure: OR Anesthesiologist: Naldo Zuniga MD Resident/COUNTERINTELLIGENCE/HUMINT SPECIALIST/CAA: Tra Ochoa MD Performed: resident/COUNTERINTELLIGENCE/HUMINT SPECIALIST/CAA Patient Condition Indications for airway management: anesthesia [...] approach: 1 Number of other approaches attempted: 0UnZanesville City Hospital 04-29-2025 NotePatient: Connie Salcido Procedure Information Date/Time: 04/29/25 1300 Procedure: ROBOTIC INCISIONAL HERNIA REPAIR WITH MESH Location: [facility] ROOM 13 / [facility] Operating Room Surgeons: Delfina Tanner MD Relevant [...] products discussed with patient who. Additional Equipment RequestsC[facility] Clinic [facility]07-23-2025 Note mraSubjective Patient ID: Connie Salcido is [...] the past 36 hours). No follow-ups on file.[facility]07-14-2025 NoteReceived referral for Ventral Hernia. Called patient to schedule consult appt. Needs Pre-Reg. Images Requested. LMVM to call office back to schedule consult appt.[facility]04-15-2025 History of Present illness Narrative* Avani Calle, RIGGER THIRD - 12/21/2024 3:00 PM EDT Reason for Appointment: Patient ID: Connie Salcido [...] nursing note reviewed. Exam conducted with a healthcare advisory services manager present. Vitals: Estimated body mass index is [...] of: Noah Walton DO documented in this encounterSaint Joseph Hospital of KirkwoodKqnmecgrzm65-85-9345 History of Present illness Narrative* Shakira Elizabeth LPN - 09/13/2024 2:50 PM EST Reason for Appointment: Patient ID: Connie Salcido [...] nursing note reviewed. Exam conducted with a healthcare advisory services manager present. Vitals: Estimated body mass index is [...] of: Noah Walton DO documented in this encounterSaint Joseph Hospital of KirkwoodWdigtzcxcz24-63-7704 Instructions* Patient Instructions* Micaela Cavazos RD - 05/17/2022 1:33 PM [...] Read Nutrition Guidelines section before next visit. [email or web address]://my.[email or web address]/-/scassets/fi [email or web address]?la=en Pre-op goal weight: 276 pounds Protein needs: 70 gm per day Nutrition Monitoring & Evaluation: Weight loss of 1-2 pounds per week and adherence to above recommendations Criteria: Patient update and weight check Need for Follow up: 1 month, please call [phone] documented in this encounterLakehealth [facility] Center09-08-2022 Instructions* Patient Instructions* Rosa Maria Israel MD - 05/16/2022 5:19 PM EDT INSTRUCTIONS: 1) Please contact me (Dr. Israel) if you have not heard about your test results within a few days after you had them done. Thank you: Contact information: [facility] [place] M61/Attention: Dr. Israel [address] [place] [address] 2) Please check with your insurance company regarding cost/coverage of any tests ordered prior to having them completed. Colleen Salcido , Thank you for completing your visit today and we welcome you to the surgical program. We are sure that you will still have some additional questions and encourage you to reach out to your care provider via [employer] OR your Patient Navigator. Patient Navigators are assigned alphabetically by patient last name. The contact information for each Navigator is listed below. Last names A-E= Naga Last names F-L = Benito Last names M-R= Jay Last names S-Z= Martina Additionally, you may find many of the answers to your questions in our Guide To Surgery book. Thisbook includes step by step instructions for completing [...] free to ask for a hard copy. [email or web address]://my.[facility] [email or web address] Once you complete all of the requirements (testing, consultations, diet, etc) from each provider, please call [phone] and select option #5 to initiate insurance approval. Please note scheduling information It is important to keep track of your scheduled appointments to ensure successful completion of oursurgical program. Any missed appointments can further delay your pre-surgical work-up. [facility] does offer an opt-in option for getting text message appointment reminders. Please follow the link below if you would like to opt into this service. [email or web address] As part of your surgical work up, SOME or ALL of the following tests may have been ordered. It willbe your responsibility to schedule and complete these tests in order to proceed with your bariatricsurgery. Please review the following instructions on how to get your testing scheduled. -EKG, Chest X-ray, Ultrasound- An appointment is needed for each of these tests. You may call your local [facility] to get an appointment. - Lab work- No appointment is needed for this, you may complete at any [facility] Laboratory.These are usually fasting labs, please be sure to fast (only water permitted) for 10-12 hours priorto the test. -Sleep Study- Please call [phone] or [phone] to get this appointment set up. -Sleep Medicine Consult- (Only needed if sleep study confirms sleep apnea) Please call [phone] [phone] to schedule an appointment. Any testing that is completed outside of [facility] will need faxed to [phone]. We look forward to working with you on this journey, Rosa Maria Israel MD documented in this encounterLake[facility]09-08-2022 NoteHNO ID: [id number] Author: Rosa Maria Israel MD Service: ? [...] a meal substitute and adv to stop pop/soda/juice/sugary/caloric/carbonated beverages: Exercise: walking; limited exercise d/t has [...] and diagnosed-she is on a list for zutc-fenwp-wry sleep study was about Sochx: -single/: -children: yes -occupation: works at [employer] -tobacco use: non-smoker -ETOH: 2 per month ALL: See [facility] LABS: IMAGING: PROC: CARDIAC: MEDS: See Epic [...] new or out of the ordinary chest pain/palpitations/ABDULAZIZ/orthopnea/PND/claudication/other cardiac, valvular or vascular issues *no h/o LA, CAD, CHF, no cp/palpitations Respiratory: Denies any known h/o lung disease, disorders or conditions. No new or out of the ordinary SOB/cough/other respiratory disease *no asthma/copd or toher lung issues (outgrew asthma); no cough/sob GI: Denies any known h/o stomach, liver, pancreas, intestinal or colonic disease, Disorders or conditions. No odyno/dysphagia/abdominal pain/N/V/diarrhea/constipation/bloody stools or other GI issues *no liver/colon or intestine d/o; s/p GB surgery : B)women: LMP?//rash/discharge/pelvic pain/menstrual (more content not included)...[facility]09-08-2022 NoteHNO ID: [id number] Author: Micaela Cavazos RD Service: ? Author Type: Registered Dietitian Type: Progress Notes Filed: 05/17/2022 1:34 PM Note Text: [facility] Nutrition Therapy: Virtual Consult - [...] limited to ADL's although she occasionally walks. [place] body weight: 128 lbs. Excess body weight: 167 lbs. Goal weight pre-op: 276 lbs. Protein needs estimated: 70 (1.2 g protein/kg IBW) Patient meets the National Institutes of Health guidelines for weight loss surgery and has [employer] therefore is required to complete 6 [...] Read Nutrition Guidelines section before next visit. [email or web address] Pre-op goal weight: 276 pounds Protein (more content not included)...[facility]09-08-2022 History of Present illness Narrative* Rosa Maria Israel MD - 05/16/2022 2:15 PM EDT This Team Access Model visit is a virtual encounter. It required patient- provider interaction for the medical decision making as documented below. Both audio and visual components utilized for this visit. Consent from patient received to conduct visit using telehealth. This visit was performed virtuallydue to the COVID-19 pandemic as an effort to protect patients and minimize exposure. CC/HPI: 26 year old lady presents for medical evaluation prior to anticipated medical/surgical treatment ofobesity. The patient is interested in surgical weight [...] a meal substitute and adv to stop pop/soda/juice/sugary/caloric/carbonated beverages: Exercise: walking; limited exercise d/t has [...] and diagnosed-she is on a list for qayz-bodmm-opa sleep study was about Sochx: -single/: -children: yes -occupation: works at [employer] -tobacco use: non-smoker -ETOH: 2 per month [...] 1 tablet by mouth every 6 hours asneeded. tiZANidine (ZANAFLEX) 4 mg tablet Take 8 [...] new or out of the ordinary chest pain/palpitations/ABDULAZIZ/orthopnea/PND/claudication/other cardiac, valvular or vascular issues *no h/o LA, CAD, CHF, no cp/palpitations Respiratory: Denies any known h/o lung disease, disorders or conditions. No new or out of the ordinary SOB/cough/other respiratory disease *no asthma/copd or toher lung issues (outgrew asthma); no cough/sob GI: Denies any known h/o stomach, liver, pancreas, intestinal or colonic disease, Disorders or conditions. No odyno/dysphagia/abdominal pain/N/V/diarrhea/constipation/bloody stools or other GI issues *no liver/colon or intestine d/o; s/p GB surgery : B)women: LMP?//rash/discharge/pelvic pain/menstrual problems *LMP: end of March-PCOS C) either: No known h/o any chronic kidney; urinary or bladder disease, disorders or conditions; Denies any renal stones/dysuria/hematuria/urgency/polyuria/other issues/concerns *no h/o cKd or bladder issue Heme/onc: No known h/o any bleeding or clotting disorder, PE/DVT/anemia, or other blood disorder orcondition No h/o cancer/bleeding or clotting problems/unusual bruising [...] adequate functional capacity, and depending on the resultsof tests, consults (and prior records/test results if requested) -check presurgical labs, CXR, EKG (s/p GB surgery) 2)HAHN-has already been diagnsoed with HANH (test done either Oct/November per patient), and she is awaiting receipt of cpap Rosa Maria Israel MD I spent a total of 45 minutes on the date of the service which included preparing to see the patient, sour-ek-ahth patient care, completing clinical documentation, obtaining and/or reviewing separately obtained history, counseling and educating the patient/family/caregiver, ordering medications, jerilyn ts, or procedures, and care coordination (not separately reported). documented in this encounterLake[facility]09-08-2022 History of Present illness Narrative* Micaela Cavazos, RD - 05/16/2022 12:53 PM EDT [facility] Nutrition Therapy: Virtual Consult - [...] class III obesity, Body mass index is 57.61kg/m . Significant prior medical history include PCOS, [...] eating pattern with breakfast occasionally skipped. Dinner tendsto be fairly well balanced although low intake of non- starchy vegetables. Small portions and lack of balanced meal at breakfast and lunch likely impairing satiety and preventing desired weight loss. Fluids not yet meeting recommendations with inadequate water and daily intake of sugar sweetened andcarbonated beverages, although she has recently decreased SSB intake. Physical activity is limited to ADL's although she occasionally walks. [place] body weight: 128 lbs. Excess body weight: 167 lbs. Goal weight pre-op: 276 lbs. Protein needs estimated: 70 (1.2 g protein/kg IBW) Patient meets the National Institutes of Health guidelines for weight loss surgery and has [employer] therefore is required to complete 6 months of Nutrition Intervention for clearance for surgery. Today is visit 1 of 6. Nutrition Diagnosis: Overweight/obesity, related to, food/nutrition - related knowledge deficit, asevidenced by BMI above normative standard for age [...] Read Nutrition Guidelines section before next visit. [email or web address] Pre-op goal weight: 276 pounds Protein needs: 70 gm per day Nutrition Monitoring & Evaluation: Weight loss of 1-2 pounds per week and adherence to above recommendations Criteria: Patient update and weight check Need for Follow up: 1 month, please call [phone] MNT Billing Type: Initial Assess/15 min 2 units Signed by: Micaela Cavazos RD documented in this encounterLakehealth [facility]wood [facility] Center08-19-2022 NoteHNO ID: [id number] Author: Carlos Tariq MD Service: ? Author [...] addressed Pt appreciative of the care Carlos Tariq, [facility]07-14-2022 NotePROCEDURE: XR FOOT LT MIN 3 VIEWS COMPARISON: None. HISTORY: Pain in left foot FINDINGS: BONES:No fracture, acute abnormality, or significant arthropathy. SOFT TISSUES:Negative. No visible soft tissue swelling. EFFUSION:None visible. OTHER: Negative. IMPRESSION: No acute abnormality Electronically authenticated by: AYAD MALCOLM Date: 2022-03-21 19:14[facility]06-10-2022 NotePROCEDURE: XR ANKLE LT MIN 3 V COMPARISON: 02/07/2020 HISTORY: Pain of left ankle joint FINDINGS: BONES:No fracture, acute abnormality, or significant arthropathy. SOFT TISSUES:Negative. No visible soft tissue swelling. EFFUSION:None visible. OTHER: Negative. IMPRESSION: No acute abnormality Electronically authenticated by: AYAD MALCOLM Date: 2022-02-15 07:35[facility] [place] [facility]* Diagnosis Abnormal weight gain- Primary Preop testing Preoperative examination, unspecified Morbid obesity with BMI of 50.0-59.9, adult ([facility]) Morbid obesity HANH (obstructive sleep apnea) Obstructive sleep apnea (adult) (pediatric) documented in this encounter [facility] [place] [facility]* Diagnosis Body mass index 50.0-59.9, adult (HCC)- Primary Body Mass Index 50.0-59.9, adult Dietary counseling and surveillance Dietary surveillance and counseling documented in this encounter [facility] [place] [facility]* Diagnosis Sweating abnormality Status post hysterectomy Acquired absence of both cervix and uterus Vaginal dryness Postmenopausal atrophic vaginitis documented in this encounter [facility] HealthcareEvaluation note* Diagnosis Well woman exam with routine gynecological exam Routine gynecological examination Sweating abnormality Status post hysterectomy Acquired absence of both cervix and uterus Vaginal dryness Postmenopausal atrophic vaginitis BV (bacterial vaginosis) Unspecified vaginitis and vulvovaginitis Yeast infection of the vagina Candidiasis of vulva and vagina documented in this encounter [facility] HealthcareReason for referral (narrative)* Outpatient Procedure (Routine) - Pending ReviewSpecialtyDiagnoses / ProceduresReferred By ContactReferred To ContactC[facility] [place] Diagnoses Abnormal weight gain Preop testing Morbid obesity with BMI of 50.0-59.9, adult (HCC) HANH (obstructive sleep apnea) Procedures ECG COMPLETE ECG ROUTINE ECG W/LEAST 12 LDS W/I&R Rosa Maria Israel MD [address] [place] [address] [facility] [place] [address] [place] [id number] Referral IDStatusReasonStart DateExpiration DateVisits RequestedVisits [id number] Auto-Generated Referral / [facility] Summary Purpose Family History No [...] or prosecute any alcohol or drug abuse patient.[facility] CenterIn the event this information is protected by the Federal Confidentiality of Alcohol and Drug Abuse Patient Records regulations: The Federal rules restrict any use of the information to criminally investigate or prosecute any alcohol or drug abuse patient.[facility] Reason for Visit (unrecogniz ed section and content) ReasonCommentsNew PatientReasonCommentsPatient EducationAssessmentReasonComments Excessive SweatingReasonCommentsWell Women Visit Care Teams (unrecognized sec tion and content) Team MemberRelationshipSpecialtyStart DateEnd Date Isabelle Noah Gabriela, DO [address] [facility], [place] [phone] ReferringOB/GYN04/23/22Team MemberRelationshipSpecialtyStart DateEnd Date IsabelleNoah Gabriela, DO [address] [place] [facility] [place] [address] ReferringOB/GYN04/23/22Team MemberRelationshipSpecialtyStart DateEnd Date Valerie Way MD [address] [place] [facility] [address] PCP - GeneralFamily Medicine01/27/23Team MemberRelationshipSpecialtyStart DateEnd Date Valerie Way MD [address] [place] [facility] [address] PCP - GeneralFamily Medicine01/27/23Team MemberRelationshipSpecialtyStart DateEnd Date Valerie Way MD [address] [place] [facility] [address] PCP - GeneralFamily Medicine01/27/23Team MemberRelationshipSpecialtyStart DateEnd Date Valerie Way MD [address] [place] [facility] [address] PCP - GeneralFamily Medicine01/27/23Te MemberRelationshipSpecialtyStart DateEnd Valerie Way MD [address] [place] [facility] [place] [address] PCP - GeneralFamily Medicine01/27/23Te MemberRelationshipSpecialtyStart DateEnd Date Valerie Way MD PCP - GeneralFamily Medicine01/27/23 INFORMATION SOURCE (unrecogn ized section and content) DATE CREATED AUTHOR 05/18/2022 [facility] DATE CREATED AUTHOR AUTHOR'S ORGANIZ ATION 01/01/2023 [facility] DATE CREATED AUTHOR AUTHOR'S ORGANIZ ATION 01/08/2024 [facility] DATE CREATED AUTHOR AUTHOR'S ORGANIZ ATION 12/23/2024 [facility] DATE CREATED AUTHOR AUTHOR'S ORGANIZ ATION 05/08/2025 [facility] DATE CREATED AUTHOR AUTHOR'S ORGANIZ ATION 07/01/2025 [facility] FOR RECORDS PERTAINING TO PATIENTS WHO ARE [...] BE BASED ON THE PRIMARY CLINICAL RECORDS. [employer] provides no warranty or guarantee of the accuracy or completeness of information in this document.
[2025-07-12] MEDS: KETOROLAC TROMETHAMINE 30 MG/ML VIAL 15 MG IVP (13:11)
[2025-07-12] MEDS: 0.9 % SODIUM CHLORIDE 1,000 ML 1000 ML IV (13:12)
[2025-07-12] MEDS: METOCLOPRAMIDE HCL 10 MG/2 ML VIAL IVP (13:12)
[2025-07-12 14:04] VITALS: BP 136/99; PULSE 89; O2SAT 96
--- NOTE | 2025-07-12 14:16 | ED.GENADUL1 ---
HPI HPI - General Adult General Chief complaint: Headache Stated complaint: MIGRAINE Time Seen by Provider: 07/12/25 12:42 Source: patient Mode of arrival: walk-in Limitations: no limitations History of Present Illness HPI narrative: The patient is a 29-year-old female presenting to the emergency department secondary to a headache. Patient has a history of migraine cephalgia. The headache began on Friday, 4 days ago. Patient states is located in the right occiput area. Does not radiate or move anywhere. She has photophobia, phonophobia, and nausea. Patient states that she tried her home remedies which were ineffective. She has Fioricet at home. Patient states that this is the longest she has ever had 1 but is not the worst headache of her life. Patient states that the headache is moderate in nature. No fever or chills. No sick contacts or recent travel. No numbness or weakness in her extremities. No trouble communicating. Despite the photophobia, there is no blurry vision, double vision, loss of vision. Related Data Home Medications ?Medication ?Instructions ?Recorded ?Confirmed tznkymfytx-xykizbqsmuuib-eadfwbzw cap 10/06/24 50 mg-300 mg-40 mg capsule desvenlafaxine succinate 50 mg mg PO 03/16/25 tablet,extended release 24 hr estradiol 0.075 mg/24 hr weekly 03/16/25 transdermal patch hydroxyzine HCl 25 mg tablet mg 03/16/25 Previous Rx's ?Medication ?Instructions ?Recorded ondansetron 4 mg disintegrating 4 mg PO Q6H PRN nausea and 10/06/24 tablet vomiting #12 tabs Allergies Allergy/AdvReac Type Severity Reaction Status Date / Time meloxicam Allergy Headache Verified 07/12/25 12:31 hydrocodone (From [place]) AdvReac Mild Nausea Verified 07/12/25 12:31 hydromorphone (From Dilaudid) AdvReac Mild Nausea Verified 07/12/25 12:31 Opioid HPI Opioid Management Most Recent Opioid Data: Last Pain Scale 8 Today, 13:11 Last ED Pain Assessment Today, 13:00 Last MAR Pain Assessment Today, 13:11 Review of Systems ROS Narrative 10 Systems were reviewed, and unless noted in the HPI, all other systems are reviewed, unremarkable, or noncontributory. [facility] Medical History Migraine ?G43.909 - Migraine, unspecified, not intractable, without status migrainosus (ICD-10) Sleep apnea ?G47.30 - Sleep apnea, unspecified (ICD-10) Bronchitis ?J40 - Bronchitis, not specified as acute or chronic (ICD-10) Kidney stones ?N20.0 - Calculus of kidney (ICD-10) Postoperative nausea and vomiting ?R11.2 - Nausea with vomiting, unspecified (ICD-10) ?Z98.890 - Other specified postprocedural states (ICD-10) Hernia ?K46.9 - Unspecified abdominal hernia without obstruction or gangrene (ICD-10) Pelvic pain ?R10.2 - Pelvic and perineal pain (ICD-10) Dyspareunia Dysmenorrhea ?N94.6 - Dysmenorrhea, unspecified (ICD-10) Menorrhagia ?N92.0 - Excessive and frequent menstruation with regular cycle (ICD-10) Surgical History History of section ?Z98.891 - History of uterine scar from previous surgery (ICD-10) History of section ?Z98.891 - History of uterine scar from previous surgery (ICD-10) H/O tubal ligation ?Z98.51 - Tubal ligation status (ICD-10) H/O lithotripsy ?Z98.890 - Other specified postprocedural states (ICD-10) History of endometrial ablation (11/16/21) ?Z98.890 - Other specified postprocedural states (ICD-10) History of cholecystectomy ?Z90.49 - Acquired absence of other specified parts of digestive tract (ICD-10) History of ankle surgery ?Z98.890 - Other specified postprocedural states (ICD-10) Family History Other Family history of DVT Family history of cancer Family history of heart disease Family history of hypertension Social History Within the past year, how often did you have a drink containing alcohol: monthly or less Smoking status: Never smoker Non-prescribed substance use: denies use 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 Prior to touching the patient, I asked for consent to examine the patient.? General: Alert and oriented, well nourished, mild distress. Eye: PERRL, EOMI, normal conjunctiva. 4 mm and reactive. No vertical or horizontal nystagmus. HENT: Normocephalic, normal hearing, moist oral mucosa, no scleral icterus, no sinus tenderness. Neck: Supple, non-tender, no carotid bruits, no JVD, no lymphadenopathy. Lungs: Clear to auscultation and percussion, non-labored respiration. No rhonchi, rales, wheezing. Heart: Normal rate, regular rhythm, no murmur, gallop or edema. Abdomen: Soft, non-tender, non-distended, normal bowel sounds, no masses. Musculoskeletal: Normal range of motion and strength, no tenderness or swelling. Skin: Skin is warm, dry and pink, no rashes or lesions. Neurologic: Awake, alert, and oriented X3, CN II-XII intact. Psychiatric: Cooperative, appropriate mood and affect.? Following the conclusion of the examination, I have washed my hands thoroughly after removing examination gloves. Constitutional Vital Signs, click to edit/add: Last Vital Signs Temp 98.6 F 07/12/25 12:31 Pulse 89 07/12/25 14:04 Resp 18 07/12/25 12:31 BP 136/99 H 07/12/25 14:04 Pulse Ox 96 07/12/25 14:04 O2 Del Method Room Air 07/12/25 12:31 Course Course Hospital Course: Patient is evaluated and has no neurologic deficits. She appears nontoxic in no acute distress but she is uncomfortable. Patient was given 1 L normal saline bolus, Reglan, Toradol, and Benadryl. Reevaluation(s) Reevaluation #1: Patient reassessed and the pain is gone. Time: 14:19 Vital Signs Vital signs: Vital Signs Temperature 98.6 F 07/12/25 12:31 Pulse Rate 106 H 07/12/25 12:31 Respiratory Rate 18 07/12/25 12:31 Blood Pressure 180/124 H 07/12/25 12:31 Pulse Oximetry 99 07/12/25 12:31 Oxygen Delivery Method Room Air 07/12/25 12:31 Temperature 98.6 F 07/12/25 12:31 Pulse Rate 89 07/12/25 14:04 Respiratory Rate 18 07/12/25 12:31 Blood Pressure 136/99 H 07/12/25 14:04 Pulse Oximetry 96 07/12/25 14:04 Oxygen Delivery Method Room Air 07/12/25 12:31 Medical Decision Making Differential Diagnosis Differential Diagnosis: Migraine cephalgia, atypical migraine, intercranial hemorrhage, generalized Medical Records Medical records reviewed: Yes I reviewed the patient's medical records Discharge Plan Discharge Stand Alone Forms: Work/School Release Chief Complaint: Headache Clinical Impression: Migraine Patient Disposition: Home, Self-Care Time of Disposition Decision: 14:20 Condition: Good Mode of Transportation: Private Vehicle Prescriptions / Home Meds: No Action ukepnqsoft-rfiokcvnvgprr-khal 50-300-40 mg capsule ondansetron 4 mg tablet,disintegrating 4 mg PO Q6H PRN (Reason: nausea and vomiting) Qty: 12 0RF estradiol 0.075 mg/24 hr patch weekly hydroxyzine HCl 25 mg tablet desvenlafaxine succinate 50 mg tablet extended release 24 hr PO Print Language: Malawian Instructions: Migraine Headache (ED) Additional Instructions: Thank you for trusting me with your care today. Please increase your water consumption. If your symptoms worsen or change please return to the emergency department soon as possible for further evaluation and treatment. Referrals: Rojelio Donato MD [Primary Care Provider, Family Practice] - 1 week
== END 2025-07-12 14:31 | disposition home or self-care (01) ==
PROVIDERS: Emergency Provider Emergency Medicine; PCP Family Medicine
DX: G43.909 Migraine, unspecified, not intractable, without status migrainosus (principal)
CPT/HCPCS: 96374; 96375; 99284; J1885; J2405; J2765

== ENCOUNTER 2025-07-29 22:55 | Emergency (ER) | payer OTHER, SELFPAY ==
--- OUTSIDE RECORDS SUMMARY | 2025-04-25 12:15 | XMS_ITS ---
Author Organization The [facility] in [place] Address [address] [place] [address] Care Team Providers Care Grain Miller Helper Name Role Phone Caesar Donato Primary Care Provider [phone] REASON FOR VISIT diet Encounters Encounter Location Date Provider Diagnosis [facility] [address] [place] [address] 04/25/2025 Caesar Donato Plan Of Treatment No Information Progress Notes * Connie SALCIDO MDOB: 4 (29 yo F)Acc No.[id number]:04/25/2025 UNLOCKED PROGRESS NOTE Progress Note Patient: Iron ARITAli David :?Rojelio Donato (TTC), MDDOB:1995???Age: 29 Y???Sex:FemaleDate:04/25/2025Phone:[phone]:[address], [address], [place], [id number] Subjective: * Chief Complaints: * 1 . Diet. * Medical History: Objective: * Vitals: Assessment: Plan: * Treatment: * * Electronic signature of Caesar Donato MD, [id number] on 07/30/2025 at 12:17 AM EST Sign off status: PendingVisit Status:?N/S N/C (No Show/No Charge) * Provider: Matty Donato MD (TTC) Date: 0 04/25/2025 Generated for Printing/Faxing/eTransmitting on:?07/30/2025 12:17 AM EST
--- OUTSIDE RECORDS SUMMARY | 2025-07-08 09:45 | XMS_ITS ---
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 Congestion. * Medical History: Objective: * Vitals: Assessment: Plan: * Treatment: * * Electronic signature of Caesar Donato MD, [id number] on 07/30/2025 at 12:16 AM EST Sign off status: PendingVisit Status:?CANCPHONE (Cancelled Phone) * Provider: Matty Donato MD (TTC) Date: Generated for Printing/Faxing/eTransmitting on:?07/30/2025 12:16 AM EST
--- OUTSIDE RECORDS SUMMARY | 2025-07-25 09:15 | XMS_ITS ---
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 Name Role Phone Caesar Donato Primary Care Provider Allergies Allergen (clinical drug ingredient) Drug/Non Drug Allergy documented on EMR Reaction Allergy Type Onset Date Status meloxicam Meloxicam headache Drug Allergy Active Results Component Value Reference Range Notes COVID-19, Flu A+B IH (Not ye t reviewed by provider) Interpretation: Performing Lab: Notes/Report: COVID - FLU A-FLU B-Control+ REASON FOR VISIT patient is co congestion, dry cough, brown drainage, sore throat, upset stomach, started 1 week ago Medications Medication SIG (Take, Route, Frequency, Duration) Notes Start Date End Date Status Topiramate 50 MG 1 tablet Orally Once a day; Dur ation: 30 days 5ActivePristiq 50 MG1 tablet Orally Once a day; Duration: 30 days 5ActiveOndansetron 4 MG1 tablet on the tongue and allow to dissolve Orally Once a day; Duration: 30 rihgHCN03/23/2024ActiveNurtec 75 MG1 tablet on the tongue and allow to dissolve Orally daily- PRN; Duration: 30 daysPLEASE RUN THIS ONE- PA SAYS COVERS 8 dbkhubh41/05/2025ActiveAmoxicillin-Pot Clavulanate 875-125 MG1 tablet Orally every 12 hrs; Duration: 10 days5Active hydrOXYzine HCl 25 MG1 tablet as needed Orally qid; Duration: 10 days03/10/2025 ActiveCyclobenzaprine HCl 10 MG1 tablet Orally tid; Duration: 30 daysPRN 8973RuwysaLmjazfyzyx-LGMX-Zzlsnova 50-325-40 MG 1 tablet as needed Orally 3 times a day; Duration: 7 days As needed PRN15ActiveAdipex-P 37.5 MG1 tablet before breakfast Orally Once a day 5Active Social History Tobacco Use: Social History Observation Description Date Details (start date - stop date) Never Smoker NA - NA Tobacco Use/Smoking Question Answer Notes Patient is a nonsmoker AUDIT-C (Standard) Question Answer Notes Did you have a drink containing alcohol in the p ast year? No Rmrbtk0FowounbntyzftdYmxalpvq Vital Signs Weight 313 lbs 07/25/2025 Height 61 in 07/25/2025 Blood pressure systolic 130 mm Hg 07/25/20 25 Blood pressure diastolic 80 mm Hg 025 Temperature 98.1 degrees Fahrenheit 07/25/20 25 BMI 59.13 kg/m2 07/25/2025 Encounters Encounter Location Date Provider Diagnosis [facility] [address] [place] [address] 07/25/2025 Caesar Hoy Congestion of nasal sinus R09.81 and Acute bronchitis, unspecified organism J20.9 Assessments Encounter Date Diagnosis (ICD Code) Assessment Notes Treatment Notes Treatment Clinical Notes Section Notes 07/25/2025 Congestion of nasal sinus (ICD-1 0 - R09.81) 07/25/2025ute bronchitis, unspecified organism (ICD-10 - J20.9)Rest and drink more liquids, especially water. You may use a humidifier or vaporizer to help keep the drainage moist. Adqx-eek-uytkmhh Nasal Saline may help the stuffy and runny nose. Use Ibuprofen and or Tylenol as needed for fever, chills, body aches or pain. Children 5 years old should not be given bbbl-rkb-vzrmtqp cough and cold medications such as guaifenesin and dextromethorphan. If you're over age 5, you may try xqez-pzn-jxfbfcr cold medications such as guaifenesin and dextromethorphan, [...] to the emergency room or call 911 Plan Of Treatment Medication Medication Name Sig Start Date Stop Date Notes Amoxicillin-Pot Clavulanate 875-125 MG 1 tablet Orally every 12 hrs; Duration: 10 days 07/25/2025 Treatment Notes Assessment Notes Acute bronchitis, unspecified organism R est and drink more liquids, especially water. You may use a humidifier or vaporizer to help keep the drainage moist. Ckfb-gfa-dikhwjh Nasal Saline may help the stuffy and runny nose. Use Ibuprofen and or Tylenol as needed for fever, chills, body aches or pain. Children 5 years old should not be given hphg-fdl-raiexbn cough and cold medications such as guaifenesin and dextromethorphan. If you're over age 5, you may try tuuk-puh-sveqrhl cold medications such as guaifenesin and dextromethorphan, [...] to the emergency room or call 911 Pending Test Test Name Order Date COVID-19, Flu A+B IH 07/25/2025 Next Appt Details Follow Up: 3-5 days if not i mproving, Reason: Progress Notes * Connie SALCIDO MDOB: 4 (29 yo F)Acc No.[id number]:07/25/2025 Progress Note Patient: Connie ARITA :?Rojelio Donato ([facility]), MDDOB:1995???Age: 29 Y???Sex:FemaleDate:07/25/2025Phone:[phone]:[address], [address], [place], [id number] In:02:27 PM ESTCheck Out:02:53 PM EST Subjective: * Chief Complaints: * P atient is co congestion, dry cough, brown drainage, sore throat, upset stomach, started 1 week ago * HPI: ???Bronchitis:? The patient complains of symptoms of bronchitis. The symptoms have been present for 1-2 days. The symptoms are moderate. The patient has not been exposed to sick contacts. Symptomatic treatment has included OTC medication. Associated symptoms include nasal congestion, postnasal drainage, congested ears, cough, fever, chills, body aches. * ROS: ???ENT:?Ear pain?denies.?Hoarseness?denies.?Cardiovascular:?Edema?denies.?Palpitations?denies.?Respiratory:?Comments?See HPI for details.?Gastrointestinal:?Abdominal pain?denies.?Diarrhea?denies.?Nausea?denies.?Skin:?Rash?denies.? * Active Problem List G43.909 Migraine Modified On:08/06/2023W/U Status:pzclcdzceE83.572Contracture, left ankle Modified On:06/18/2023/U Status:ufbasecuyV60.571Contracture, right ankle Modified On:06/18/2023/U Status:vkycttigpO74.2Plantar fascial fibromatosis Modified On:06/25/2023/U Status:ujlfxivgfT07.62Achilles tendinitis, left leg Modified On:06/25/2023 Status:lheszhfolA67.61Achilles tendinitis, right leg Modified On:06/25/2023 Status:dgpagfjinX86.9Obesity Modified On:09/11/2023 Status:zebygsiqjF19.31Right lower quadrant abdominal pain Modified On:08/18/2023 Status:gumtjhyoeN86.90Acute sinusitis Modified On:12/04/2023U Status:gargaffazH10.9Acute gastroenteritis Modified On:12/17/2023 Status:akbwuwmykL89.672Left foot pain Modified On:02/03/2024 Status:yrdzsrodeQ39.30Sciatica Modified On:02/20/2024 Status:xttqmdgudW56.9Anxiety Modified On:04/09/2024 Status:unmjetcagT00.9Depression Modified On:04/09/2024 Status:xcfnwxnugM16.551Hip pain, acute, right Modified On:09/10/2024 Status:zaipfnvosT94.9Ventral hernia Modified On:03/17/2025 Status:fvdzpsljuF46.9Hydrocephalus Modified On:04/15/2025 Status:yhtnkvvzyK83.5Chiari I malformation Modified On:06/15/2025 Status:confirmed * Medical History: * Surgical History: L aparoscopic hysterectomy with cystoscopy, bilateral salpingectomy 04/10/2023- Section x2 Gallbladder Right Ankle arthroscopy for aided repair of osteochondral defect of talus, arthrotomy for cartilage grafting, peroneal tendon repair, lateral ankle stabilization, transplantation of bone marrow aspirate 04/09/2019 * Hospitalization/Major Diagno stic Procedure: s ee above * Family History: F ather: , Heart Disease, diagnosed with Heart Disease. M other: alive, hypertension, Heart Disease, diagnosed with Hypertension, Heart Disease. B rother(s): alive. S ister(s): alive, Heart Disease, diagnosed with Heart Disease. S on(s): alive. D georginaer(s): alive.?1 brother(s) , 1 sister(s) . 1 son(s) , 1 daughter(s) . . * Social History: ???Tobacco Use:?Tobacco Use/Smoking?Patient is a?nonsmoker ???Drug/Alcohol:?AUDIT-C (Standard)?Did you have a drink containing alcohol in the past year??No ?Points?0 ?Interpretation?Negative * Medications: T akingAdipex-P(Phentermine HCl) 37.5 MG Tablet 1 tablet before breakfast Orally Once a day Xwfwdmruow-ATVG-Hkrfissd 50-325-40 MG Tablet 1 tablet as needed Orally 3 times a day As needed, Notes to Pharmacist: PRNCyclobenzaprine HCl 10 MG Tablet 1 tablet Orally tid , Notes to Pharmacist: PRNhydrOXYzine HCl 25 MG Tablet 1 tablet as needed Orally qid Nurtec(Rimegepant Sulfate) 75 MG Tablet Disintegrating 1 tablet on the tongue and allow to dissolve Orally daily- PRN , Notes to Pharmacist: PLEASE RUN THIS ONE- PA SAYS COVERS 8 tabletsOndansetron 4 MG Tablet Disintegrating 1 tablet on the tongue and allow to dissolve Orally Once a day , Notes to Pharmacist: PRNPristiq(Desvenlafaxine Succinate ER) 50 MG Tablet Extended Release 24 Hour 1 tablet Orally Once a day Topiramate 50 MG Tablet 1 tablet Orally Once a day Medication List reviewed and reconciled with the patientTaking Adipex- P(Phentermine HCl) 37.5 MG Tablet 1 tablet before breakfast Orally Once a day Taking Owrfkvzoft-KQFG-Pvarrijq 50-325-40 MG Tablet 1 tablet as needed Orally 3 times a day As needed, Notes to Pharmacist: PRNTaking Cyclobenzaprine HCl 10 MG Tablet 1 tablet Orally tid , Notes to Pharmacist: PRNTaking hydrOXYzine HCl 25 MG Tablet 1 tablet as needed Orally qid Taking Nurtec(Rimegepant Sulfate) 75 MG Tablet Disintegrating 1 tablet on the tongue and allow to dissolve Orally daily- PRN , Notes to Pharmacist: PLEASE RUN THIS ONE- PA SAYS COVERS 8 tabletsTaking Ondansetron 4 MG Tablet Disintegrating 1 tablet on the tongue and allow to dissolve Orally Once a day , Notes to Pharmacist: PRNTaking Pristiq(Desvenlafaxine Succinate ER) 50 MG Tablet Extended Release 24 Hour 1 tablet Orally Once a day Taking Topiramate 50 MG Tablet 1 tablet Orally Once a day Medication List reviewed and reconciled with the patient * Allergies: M eloxicam: headacheno[Allergies Verified] Objective: * Vitals: W t:313lbs, Ht: 61 in, BP:130/80mm Hg, Temp:98.1F, BMI:59.13Index, Ht-cm: 154.94 cm, Wt-k.98 kg. * Examination: ???General Examination: ?GENERAL APPEARANCE:? in no acute distress.?EYES:? EOMI.?EARS:? auditory canal clear, middle ear effusion noted. ?NOSE:? clear discharge, turbinates pale and swollen.?ORAL CAVITY:? mucosa moist.?THROAT:? no erythema, post-nasal drainage noted.?NECK:? neck supple, no thyromegaly.?LYMPH NODES:?no cervical adenopathy.?LUNGS:? unlabored, clear to auscultation bilaterally.?CARDIO:?no murmurs, regular rate and rhythm.?ABDOMEN:? bowel sounds present, no organomegaly .? ?? Assessment: * Assessment: 1.?Congestion of nasal sinus - R09.81 (Primary)???2.?Acute bronchitis, unsp ecified organism - J20.9??? Plan: * Treatment: Start Amoxicillin-Pot Clavulanate Tablet, 875-125 MG, 1 tablet, Orally, every 12 hrs, 10 days, 20 Tablet, Refills 0.?LAB: COVID-19, Flu A+B IH (Collection Date & Time - 07/25/2025)2.?Acute bronchitis, unspecified organism? Notes:Rest and drink more liquids, especially water. You may use a humidifier or vaporizer to help keep the drainage moist. Deut-vbo-zxvsjkg Nasal Saline may help the stuffy and runny nose. Use Ibuprofen and or Tylenol as needed for fever, chills, body aches or pain. Children 5 years old should not be given ysch-hqv-uaqkslw cough and cold medications such as guaifenesin and dextromethorphan. If you're over age 5, you may try soys-fld-ofwztms cold medications such as guaifenesin and dextromethorphan, or multi-symptom cold reliever such as Dayquil to help reduce the symptoms. Antibiotics have been pre scribed. You should take these until completed and follow the directions. Antibiotics can sometimescause upset stomach, and in rare cases, serious allergic reactions or serious gastrointestinal problems. If you start having severe abdominal pain, severe vomiting, or bloody diarrhea, you should be r eevaluated by your physician or urgent care immediately. Follow up with your Primary Care Provider or return to clinic if symptoms do not improve within 3-5 days. If you develop severe symptoms such as shortness of breath, repeated vomiting, coughing up blood, or chest pain you should go to the emergency room or call 911?? * Labs: * L ab: COVID-19, Flu A+B IH (Collection Date & Time - 07/25/2025) ?ValueReference Range?COVID- * F KYM A - * F KYM B - * C ontrol + * Procedure Codes: 8 7636 SARSCOV2 & INF A&B AMP PRB, Modifiers: QW * Preventive Medicine: ??Screenings/Counseling:?BMI ACTION PLAN?Above Normal BMI Follow-up?Dietary management education, guidance, and counseling * Follow Up: 3 -5 days if not improving * * Sign off status: CompletedVisit Status:?CHK (Check Out) true * Provider: Matty Donato ([facility])MD Date: 09/24/2024 Generated for Printing/Faxing/eTransmitting on:?07/30/2025 12:19 AM EST History and Physical Notes * Examination CategorySub-CategoryDetailNotesCategory NotesGeneral ExaminationGENERAL APPEARANCE:in no acute distressEYES:EOMIEARS:auditory canal clear, middle ear effusion notedNOSE:clear discharge, turbinates pale and swollenTHROAT:no erythema, post-nasal drainage notedNECK:neck supple, no thyromegalyCARDIO:no murmurs, regular rate and rhythmLUNGS:unlabored, clear to auscultation bilaterallyABDOMEN:bowel sounds present, no organomegalyLYMPH NODES:no cervical adenopathyORAL CAVITY:mucosa moist
[2025-07-29 23:08] VITALS: BP 166/99; PULSE 102; TEMP 36.6; O2SAT 98; BMI 59.5
--- NOTE | 2025-07-29 23:42 | ED.GENADUL1 ---
HPI HPI - General Adult General Chief complaint: Extremity Injury, Upper Stated complaint: NECK PAIN Time Seen by Provider: 07/29/25 23:32 Source: patient Mode of arrival: walk-in History of Present Illness HPI narrative: presents complaining of right neck pain. Woke up 4 days ago with pain. Not able to recall any injury. increased pain in her right neck when she turns to the right. Neg radicular symptoms. No headache or fever. Related Data Home Medications ?Medication ?Instructions ?Recorded ?Confirmed fagepgjytd-smdjuixgikmyy-kktnnpqk cap 10/06/24 50 mg-300 mg-40 mg capsule desvenlafaxine succinate 50 mg mg PO 03/16/25 tablet,extended release 24 hr estradiol 0.075 mg/24 hr weekly 03/16/25 transdermal patch hydroxyzine HCl 25 mg tablet mg 03/16/25 Previous Rx's ?Medication ?Instructions ?Recorded ondansetron 4 mg disintegrating 4 mg PO Q6H PRN nausea and 10/06/24 tablet vomiting #12 tabs Allergies Allergy/AdvReac Type Severity Reaction Status Date / Time meloxicam Allergy Headache Verified 07/29/25 23:08 hydrocodone (From [place]) AdvReac Mild Nausea Verified 07/29/25 23:08 hydromorphone (From Dilaudid) AdvReac Mild Nausea Verified 07/29/25 23:08 Opioid HPI Opioid Management Most Recent Opioid Data: Last Pain Scale 8 07/12/25, 13:11 Last ED Pain Assessment Today, 00:56 Review of Systems ROS Status of ROS 10 or more systems reviewed and unremarkable except as noted in history and below PFSH PFS Medical History Migraine ?G43.909 - Migraine, unspecified, not intractable, without status migrainosus (ICD-10) Sleep apnea ?G47.30 - Sleep apnea, unspecified (ICD-10) Bronchitis ?J40 - Bronchitis, not specified as acute or chronic (ICD-10) Kidney stones ?N20.0 - Calculus of kidney (ICD-10) Postoperative nausea and vomiting ?R11.2 - Nausea with vomiting, unspecified (ICD-10) ?Z98.890 - Other specified postprocedural states (ICD-10) Hernia ?K46.9 - Unspecified abdominal hernia without obstruction or gangrene (ICD-10) Pelvic pain ?R10.2 - Pelvic and perineal pain (ICD-10) Dyspareunia Dysmenorrhea ?N94.6 - Dysmenorrhea, unspecified (ICD-10) Menorrhagia ?N92.0 - Excessive and frequent menstruation with regular cycle (ICD-10) Surgical History History of section ?Z98.891 - History of uterine scar from previous surgery (ICD-10) History of section ?Z98.891 - History of uterine scar from previous surgery (ICD-10) H/O tubal ligation ?Z98.51 - Tubal ligation status (ICD-10) H/O lithotripsy ?Z98.890 - Other specified postprocedural states (ICD-10) History of endometrial ablation (11/16/21) ?Z98.890 - Other specified postprocedural states (ICD-10) History of cholecystectomy ?Z90.49 - Acquired absence of other specified parts of digestive tract (ICD-10) History of ankle surgery ?Z98.890 - Other specified postprocedural states (ICD-10) Family History Other Family history of DVT Family history of cancer Family history of heart disease Family history of hypertension Social History Within the past year, how often did you have a drink containing alcohol: monthly or less Smoking status: Never smoker Non-prescribed substance use: denies use 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 Highest level of school completed/degree received: high school graduate Little interest or pleasure in doing things: not at all Feeling down, depressed, or hopeless: not at all Exam Constitutional Vital Signs, click to edit/add: Last Vital Signs Temp 97.9 F 07/29/25 23:08 Pulse 102 H 07/29/25 23:08 Resp 20 07/29/25 23:08 BP 166/99 H 07/29/25 23:08 Pulse Ox 98 07/29/25 23:08 O2 Del Method Room Air 07/29/25 23:08 Common normals: no apparent distress, oriented x3, no limitations, healthy appearing, alert and well nourished [facility] Common normals: normocephalic and head/scalp atraumatic Eye Common normals: EOMs intact bilaterally and conjunctivae normal Neck & C-Spine Other: decreased ROM geovani turning to the right Respiratory Common normals: normal respiratory effort, no retractions, no use of accessory muscles and clear to auscultation bilaterally Cardio Common normals: regular rate, regular rhythm, S1 normal heart sound and S2 normal heart sound Extremity Common normals: normal to inspection and full ROM Neuro Common normals: oriented x3, CN's II-XII intact bilaterally, moves all extremities, no focal motor deficits and no sensory deficits noted Psych Appearance: grossly normal Course Vital Signs Vital signs: Vital Signs Temperature 97.9 F 07/29/25 23:08 Pulse Rate 102 H 07/29/25 23:08 Respiratory Rate 20 07/29/25 23:08 Blood Pressure 166/99 H 07/29/25 23:08 Pulse Oximetry 98 07/29/25 23:08 Oxygen Delivery Method Room Air 07/29/25 23:08 Temperature 97.9 F 07/29/25 23:08 Pulse Rate 102 H 07/29/25 23:08 Respiratory Rate 20 07/29/25 23:08 Blood Pressure 166/99 H 07/29/25 23:08 Pulse Oximetry 98 07/29/25 23:08 Oxygen Delivery Method Room Air 07/29/25 23:08 Medical Decision Making [facility] Narrative Medical decision making narrative: patient presents with acute Wry neck that started 4 days ago after she woke up. No radicular symptoms. Limited ability to turn her head to the right due to pain in her neck. No headache or dizziness. Right paracervical muscle is tender. Patient treated with norflex and solumedrol and discharged home with these same medications to use until she is seen by her doctor for follow up Discharge Plan Discharge Chief Complaint: Extremity Injury, Upper Clinical Impression: Acute torticollis Patient Disposition: Home, Self-Care Prescriptions / Home Meds: No Action haokuberzq-hklycjsoaecti-nwlq 50-300-40 mg capsule ondansetron 4 mg tablet,disintegrating 4 mg PO Q6H PRN (Reason: nausea and vomiting) Qty: 12 0RF estradiol 0.075 mg/24 hr patch weekly hydroxyzine HCl 25 mg tablet desvenlafaxine succinate 50 mg tablet extended release 24 hr PO Print Language: Mohawk Instructions: Spasmodic Torticollis (ED) Additional Instructions: follow up with Dr Donato next week Referrals: Rojelio Donato MD [Primary Care Provider, Family Practice] - 1 week
--- OUTSIDE RECORDS SUMMARY | 2025-07-30 00:14 | XMS_ITS | CCD ---
Author Organization [facility] Care Team Providers Care Regional Liaison Name Role Phone Noah Walton DO Unavailable [...] HOY ., DR PADILLA Primary Care Unavailable NEWBERRY, DR AYAD [employer] Unavailable MCKENZIE EDGAR [...] Unavailable Valerie Way MD Primary Care Provider [phone] NOAH WALTON Attending Unavailable NOAH WALTON Attending Unavailable VALERIE WAY Primary Care Unavailable ANNETTE TANNERIN Referring Unavailable VALERIE WAY Primary Care Unavailable JOSIE CRESPO Attending Unavailab DELFINA Rogers Attending Unavailable CIRO JIARADHAIN Admitting Unavailable ANNETTE TANNERIN Attending Unavailable CIRO, JIARADHAIN Referring Unavailable CIRO JIARADHAIN Referring Unavailable ANNETTE TANNERIN Attending Unavailable DELFINA TANNER Attending Unavailable Valerie Way MD Primary Care Provider [phone] Allergies Allergy ClassificationReported Allergen(s)Allergy TypeDate of OnsetReaction(s) Facility (4 sources)meloxicam; Translations: [MELOXICAM]Drug Opxqylb53-69-9921Fumfm: See CommentsSelect Medical [facility] (2 sources)Acetaminophen / HYDROcodone; Translations: [[place]]Drug AllergyThe [facility] (2 sources)HYDROmorphone; Translations: [Dilaudid]Drug AllergyThe [facility] (1 source)meloxicamDrug AllergyThe [facility] Repository (8 sources)meloxicamDrug Exjitdl26-73-3757PobwgfrlCBAN Healthcare Work Phone: (5 sources)HYDROcodone; Translations: [HYDROCODONE]Drug Nnftkzc87-38-7353Ijxpq [facility] (1 source)HYDROmorphone; Translations: [HYDROMORPHONE]Drug Hpdrqel75-65-7685 [facility]ository (1 source)ALLERGIES NOT ON FILE; Translations: [ALLERGIES NOT ON FILE]Propensity to adverse reactions (disorder)[facility] Repository Medications Current Medications MedicationDrug Class(es)DatesSig (Normalized)Sig (Original)168 hr estradiol 0.36247 mg/hr transdermal system (8 sources)EstrogenStart: 12-21-2024 End: 94-03-3858gixjgoqtd (Climara) 0.075 MG/24HR Indications: Status post hysterectomy , Vaginal dryness Place 1 patch over 7 days on the skin 1 (one) time per week 12 patch 3 12/21/2024 12/21/2025 ActiveStart: 09-13-2024 End: 08-57-2227rtjtlwgzb (Climara) 0.05 MG/24HR Indications: Sweating abnormality , Status post hysterectomy , Vaginal dryness Place 1 patch over 7 days on the skin 1 (one) time per week 12 patch 3 09/13/2024 ActivemetroNIDAZOLE 500 mg oral tablet (3 sources)Nitroimidazole AntimicrobialStart: 12-21-2024 End: 21-43-8975flgz 1 tablet by mouth in the morningmetroNIDAZOLE (Flagyl) 500 MG tablet Indications: BV (bacterial vaginosis) Take 1 tablet (500 mg) by mouth in the morning and 1 tablet (500 mg) before bedtime. Do all this for 7 days. 14 tablet 12/21/2024 12/28/2024 Activephentermine hydrochloride 37.5 mg oral tablet (8 sources)Sympathomimetic Amine AnorecticStart: 11-83-5235kfbb 1 tablet by mouth before mealtimephentermine (Adipex-P) 37.5 MG tablet Take 37.5 mg by mouth in the morning. Take before meals. 08/13/2024 ActiveStart: 30-19-8453essj 1 capsule by mouth once dailyPhentermine HCl 37.5 mg capsule Take 37.5 mg by mouth once daily. 0 04/18/2022 ActiveComment on above:Take 37.5 mg by mouth once daily. Completed/Discontinued Medications MedicationDrug Class(es)DatesSig (Normalized)Sig (Original)acetaminophen 325 mg / butalbital 50 mg / caffeine 40 mg oral capsule (10 sources)Barbiturate, Central Nervous System Stimulant, MethylxanthineStart: 70-89-8851qkwepnnqsyotl 325 mg-caffeine 40 mg-butalbital 50 mg (FIORICET) per capsule as needed. 0 03/19/2022ctivetake 1 capsule by mouth every four hours as needed for headacheFioricet 50-300-40 MG capsule Take 1 capsule by mouth every 4 (four) hours if needed for headaches.ActiveComment on above:as needed. acetaminophen 300 mg / codeine phosphate 30 mg oral tablet (2 sources)Opioid AgonistStart: 34-96-9817jgdr 1 tablet by mouth every six hours as neededacetaminophen-codeine (TYLENOL-COD #3) 300-30 mg per tablet Take 1 tablet by mouth every 6 hours asneeded. 0 04/22/2022 ActiveComment on above:Take 1 tablet by mouth every 6 hours as needed.[id number] 200 actuat albuterol 0.09 mg/actuat metered dose inhaler (3 sources)beta2-Adrenergic AgonistStart: 12-30-2022 End: 33-56-3322pqvj 2 puff(s) by inhalation every six hoursVentolin HFA 108 (90 Base) MCG/ACT inhaler Inhale 2 puffs every 6 (six) hours if needed. 12/30/2022 09/13/2024 Discontinuedcyclobenzaprine hydrochloride 10 mg oral tablet (3 sources)Muscle RelaxantStart: 02-19-2023 End: 56-22-6653qnsu 1 tablet by mouth three times daily as needed for muscle spasmscyclobenzaprine (Flexeril) 10 MG tablet TAKE 1 TABLET BY MOUTH THREE TIMES DAILY NEEDED FOR MUSCLE SPASMS MUST LAST 30 DAYS 02/19/2023 09/13/2024 Discontinuedfluconazole 150 mg oral tablet (2 sources)Azole AntifungalStart: 12-21-2024 End: 47-72-6085ojtepxidyzu (Diflucan) 150 MG tablet Indications: Yeast infection [...] tablet (2 sources)Serotonin-1b and Serotonin-1d Receptor AgonistStart: 63-14-7070acaz 1 tablet by mouth once dailynaratriptan (AMERGE) 2.5 mg tablet Take 2.5 mg by mouth once daily. 0 04/21/2022 ActiveComment on above:Take 2.5 mg by mouth once daily.tiZANidine 4 mg oral tablet (2 sources)Central alpha-2 Adrenergic AgonistStart: 89-94-3235srOEMhjnar (ZANAFLEX) 4 mg tablet Take 8 mg by mouth as needed. 0 03/01/2022 ActiveComment on above:Take 8 mg by mouth as needed. Problems Active Problems Problem ClassificationProblemDateDocumented DateEpisodic/ChronicAbdominal hernia (3 sources)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; Translations: [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]Onset: 23-94-9936Rngvboqn Administrative/social admission (1 source)Patient encounter status; Translations: [Dietary counseling and surveillance]EpisodicAsthma (1 source)Unspecified asthma, uncomplicated; Translations: [UNSPECIFIED ASTHMA UNCOMPLICATED]Onset: 40-84-7052EyahkohKeceizipdh associated with dizziness or vertigo (1 source)Dizziness and giddiness; Translations: [DIZZINESS AND GIDDINESS]Onset: 47-57-8946DwznweujIfpkvgcn; including migraine (4 sources)Headache; including migraine; Translations: [HEADACHE UNSPECIFIED] Onset: 45-30-4089Aoqimmyczvszo and screening for infectious disease (1 source)Encounter for screening for human papillomavirus (HPV); Translations: [ENC SCREENING HUMAN PAPILLOMAVIRUS]Onset: 05-44-1212AhbzguqwHinsxdesksvu diseases of female pelvic organs (2 sources)Bacterial vaginosis; Translations: [Acute vaginitis]12-21-2024 EpisodicMycoses (2 sources)Candidiasis of vagina; Translations: [Yeast infection of the vagina] 65-01-2998MzwfajozEmdmxp and vomiting (5 sources)Nausea; Translations: [Nausea with vomiting, unspecified]Onset: 53-34-3330FsdadaliQvvli aftercare (1 source)Other assisted (current) drug therapy; Translations: [OTH POWER DIGGER OPERATOR CURRENT DRUG THERAPY]Onset: 34-35-4768WzodplbpXqwyf aftercare (2 sources)Encounter for other specified surgical aftercare; Translations: [Encounter for other specified surgical aftercare]Onset: 95-53-0258TmtgrtncXnuvh congenital anomalies (4 sources)Other congenital malformations of ribs; Translations: [OTHER CONGENITAL MALFORMATIONS RIBS]Onset: 27-65-8744YqglxbfGggqd female genital disorders (4 sources)Vaginal dryness; Translations: [Other specified noninflammatory disorders of vagina]74-49-2686NtdqrhsdTnzjp nervous system disorders (1 source)Other chronic pain; Translations: [OTHER CHRONIC PAIN]Onset: 02-15-4316VemzacaLtpld non-traumatic joint disorders (4 sources)Pain in left ankle and joints of left foot; Translations: [PAIN IN LEFT ANKLE]Onset: 41-49-2969RvbtzjowYdsvk nutritional; endocrine; and metabolic disorders (2 sources)Body mass index 40+ - severely obese; Translations: [Morbid (severe) obesity due to excess calories]ChronicOther nutritional; endocrine; and metabolic disorders (1 source)Body mass index (BMI) 50.0-59.9, adult; Translations: [BODY MASS INDEX BMI 50.0-59.9 ADULT]Onset: 23-29-6907EstamknCrrhj nutritional; endocrine; and metabolic disorders (3 sources)Morbid (severe) obesity due to excess calories; Translations: [MORBID SEVERE OBES D/T EXCESS CHRISTY]Onset: 47-24-0085IryiyloEuuxr nutritional; endocrine; and metabolic disorders (1 source)Abnormal weight gain; Translations: [Abnormal weight gain]Episodic Other screening for suspected conditions (not mental disorders or infectious disease) (4 sources)Encounter for screening for malignant neoplasm of cervix; Translations: [ENC SCREENING MALIG NEOPLASM CERV]Onset: 22-42-2618KfmurqztFjulc skin disorders (4 sources)Disorder of sweat gland; Translations: [Eccrine sweat disorder, unspecified]27-48-1076JjngjwxoCdzhu upper respiratory infections (5 sources)Acute pharyngitis, unspecified; Translations: [Acute upper respiratory infection, unspecified]Onset: 37-62-8483XsxqoqzuHtaeradf codes; unclassified (1 source)Obstructive sleep apnea syndrome; Translations: [Obstructive sleep apnea (adult) (pediatric)]ChronicSuperficial injury; contusion (1 source)Abrasion of abdominal wall, initial encounter; Translations: [Abrasion of abdominal wall, initial encounter]Onset: 29-75-2225CresmlqmHvohgoeydism (1 source)LOW BACK PAIN, UNSPECIFIED; Translations: [LOW BACK PAIN, UNSPECIFIED] Onset: 14-86-6662Tikhermiosla (1 source)Post-op ProblemOnset: 80-15-5088Ywhoooshptum (1 source)Post-op IssuesOnset: 07-87-1973Fnbzsdodevvv (2 sources)Post-op; Translations: [Post-op]Onset: 05-11-2025 Past or Other Problems Problem ClassificationProblemDateDocumented DateEpisodic/ChronicAbdominal pain (9 sources)Epigastric pain; Translations: [Unspecified abdominal pain]Onset: 50-75-1735YqvpcypbAfpentguzjb and hemorrhagic disorders (2 sources)Spontaneous ecchymoses; Translations: [Spontaneous ecchymoses]Onset: 81-14-0528ApjeempyKtodtifxbitvy and procreative management (1 source)Tubal ligation status; Translations: [TUBAL LIGATION STATUS]Onset: 12-65-2510IrvabelgIvpdw connective tissue disease (4 sources)Pain in left foot; Translations: [PAIN IN LEFT FOOT]Onset: 03-21-2022 EpisodicOther connective tissue disease (5 sources)Posterior tibial tendinitis, left leg; Translations: [POSTERIOR TIBIAL TENDINITIS LT LEG]Onset: 72-05-2855HlcfsrcdBeqwb gastrointestinal disorders (1 source)Diarrhea, unspecified; Translations: [DIARRHEA UNSPECIFIED]Onset: 47-73-0709HirahnrnOtqwx non-traumatic joint disorders (4 sources)Pain in left hip; Translations: [PAIN IN LEFT HIP]Onset: 07-09-2022 EpisodicOvarian cyst (4 sources)Unspecified ovarian cyst, unspecified side; Translations: [UNSPECIFIED OVARIAN CYST UNSP SIDE]Onset: 51-08-1318BsefzwatXmnywrpf codes; unclassified (1 source)Acquired absence of other specified parts of digestive tract; Translations: [ACQ ABSENCE OTH PART DIGESTV TRACT]Onset: 41-98-2544Oflqpeif Residual codes; unclassified (1 source)Other specified postprocedural states; Translations: [OTH SPECIFIED POSTPROCEDURAL STATES]Onset: 40-72-3468MpyttwlrQqsrqyrsrzl; intervertebral disc disorders; other back problems (1 source)Lumbago with sciatica, left side; Translations: [LUMBAGO WITH SCIATICA LEFT SIDE]Onset: 39-25-9740Blhnddlm Results Test NameValueInterpretationReference RangeFacilityOffice Visiton 06-29-2025 Follow-up [id number] Connie Salcido 1995 F Date Provider Department Center 06/29/2025 [facility] Second Fl No family history on file Level of Service:26590 NE POSTOP FOLLOW UP VISIT RELATED TO ORIGINAL PX Reason for Visit and Comments: Post-op [483] - Post Op: 2 month f/u , s/p 04/29/2025 robotic incisional hernia repair with mesh.[facility] CenterOffice [facility] 24-84-9698Elgvxs-up [id number] Connie Salcido 1995 F Date Provider Department [facility] Second Fl No family history on file Level of Service:56634 NE POSTOP FOLLOW UP VISIT RELATED TO ORIGINAL PX Reason for Visit and Comments: Post-op [483] - Patient is here for s/p 04/29/2025 robotic incisional hernia repair with mesh.NormalHolzer Medical Center – JacksonC-REACTIVE PROTEINon 05-06-2025 REACTIVE PROTEIN1.8 mg/dLHigh<=0.7ProHouston Methodist HospitalComment on above:Performed By: #### CRP #### [facility] ([address] [address] VIRCBC WITH AUTO DIFFERENTIALon 35-53-2627BQLEULKGP ABSOLUTE COUNT (10*3/UL) BY AUTOMATED COUNT0.0 10*3/uLNormal0.0-0.2ProMedShriners HospitalComment on above:Performed By: #### CBCA #### [address] [address] VIRBASOPHILS RELATIVE PERCENT BY AUTOMATED COUNT0.4 %Normal [facility] HospitalComment on above:Performed By: #### CBCA #### [facility] ([address] [address] VIRCELLAVISION DIFFERENTIAL TYPEAUTOMATED DIFFERENTIALNormal [facility] HospitalComment on above:Performed By: #### CBCA #### [address] [address] VIREosinophils (Bld) [#/Vol]0.1 10*3/uLNormal0.0-0.4[facility] HospitalComment on above:Performed By: #### CBCA #### [facility] ([address] [address] VIREOSINOPHILS RELATIVE PERCENT BY AUTOMATED COUNT0.7 %Normal [facility] HospitalComment on above:Performed By: #### CBCA #### [address] [address] VIRErythrocyte distribution width (RBC) [Ratio]13.4 %Normal 11.5-15ProHouston Methodist HospitalComment on above:Performed By: #### CBCA #### [facility] ([address] [address] VIRHematocrit (Bld) [Volume fraction]42.0 %Sxxnng40-02 [facility] HospitalComment on above:Performed By: #### CBCA #### [facility] ([address] [address] VIRHemoglobin (Bld) [Mass/Vol]14.2 g/oXTzrpqo15.7-15.5 [facility] HospitalComment on above:Performed By: #### CBCA #### [facility] ([address] [address] VIRLYMPHOCYTES ABSOLUTE COUNT (10*3/UL) BY AUTOMATED COUNT2.3 10*3/uLNormal1.0-3.5PAvita Health System Galion HospitalComment on above:Performed By: #### CBCA #### [facility] ([address] [address] VIRLYMPHOCYTES RELATIVE PERCENT BY AUTOMATED COUNT22.7 %Normal [facility] HospitalComment on above:Performed By: #### CBCA #### [facility] ([address] [address] VIRMCH (RBC) [Entitic mass]30.0 dtElpzmg88-61QewOvnqqwHouston Methodist HospitalComment on above:Performed By: #### CBCA #### [facility] ([address] [address] VIRMCHC (RBC) [Mass/Vol]33.9 g/iUHqzvms48-09BjeIlydbiHouston Methodist HospitalComment on above:Performed By: #### CBCA #### [facility] ([address] [address] VIRMCV (RBC) [Entitic vol]88 qLJjovln71-424SevOkwbsq [facility] HospitalComment on above:Performed By: #### CBCA #### [facility] ([address] [place] [address] VIRMONOCYTES ABSOLUTE COUNT (10*3/UL) BY AUTOMATED COUNT0.7 10*3/uLNormal0.0-0.9[facility] HospitalComment on above:Performed By: #### CBCA #### [facility] ([address] [place] [address] VIRMONOCYTES RELATIVE PERCENT BY AUTOMATED COUNT7.1 %Normal [facility] HospitalComment on above:Performed By: #### CBCA #### [facility] ([address] [place] [address] VIRNEUTROPHILS ABSOLUTE COUNT BY AUTOMATED COUNT7.1 10*3/uL High1.5-6.6ProHouston Methodist HospitalComment on above:Performed By: #### CBCA #### [facility] ([address] [place] [address] VIRNEUTROPHILS RELATIVE PERCENT BY AUTOMATED COUNT69.1 %Normal [facility] HospitalCommemorial healthcare on above:Performed By: #### CBCA #### [facility] ([address] [place] [address] VIRPlatelet mean volume (Bld) [Entitic vol]7.9 fLNormal7-12 [facility] HospitalComment on above:Performed By: #### CBCA #### [facility] ([address] [place] [address] VIRPlatelets (Bld) [#/Vol]277 10*3/bTHztzzu171-448OkoDfmgud [facility] HospitalComment on above:Performed By: #### CBCA #### [facility] ([address] [place] [address] VIRRBC COUNT4.75 X10E12/LNormal3.8-5.2PAvita Health System Galion HospitalComment on above:Performed By: #### CBCA #### [facility] ([address] [place] [address] VIRWBC (Bld) [#/Vol]10.2 10*3/uLNormal4-11ProHouston Methodist HospitalComment on above:Performed By: #### CBCA #### [facility] ([address] [address] VIRCOMPREHENSIVE METABOLIC PANELon 92-14-1150Lumpcbs [Mass/Vol]3.9 g/dLNormal3.2-5.3PAvita Health System Galion HospitalComment on above: Performed By: #### CMP #### [facility] ([address] [place] [address] VIRALP [Catalytic activity/Vol]60 U/DYfhxcc84-683SroExeykeHouston Methodist HospitalComment on above:Performed By: #### CMP #### [facility] ([address] [address] VIRALT [Catalytic activity/Vol]36 U/LHigh<=31PAvita Health System Gal[facility] HospitalComment on above:Performed By: #### CMP #### [facility] ([address] [address] VIRAnion gap [Moles/Vol]7 mmol/LNormal5-15ProHouston Methodist HospitalComment on above:Performed By: #### CMP #### [facility] ([address] [place] [address] VIRAST [Catalytic activity/Vol]25 U/LNormal<=41ProHouston Methodist HospitalComment on above:Performed By: #### CMP #### [facility] ([address] [place] [address] VIRBilirubin [Mass/Vol]0.7 mg/dLNormal0.3-1.2PAvita Health System Galion HospitalComment on above:Performed By: #### CMP #### [facility] ([address] [place] [address] VIRCalcium [Mass/Vol]8.6 mg/dLNormal8.5-10.5PAvita Health System Galion HospitalComment on above:Performed By: #### CMP #### [facility] ([address] [place] [address] VIRChloride [Moles/Vol]105 mmol/PUeubjv63-716RrtOlytuiHouston Methodist HospitalComment on above:Performed By: #### CMP #### [address] [place] [address] VIRCO2 [Moles/Vol]22 mmol/YIkhkus31-43OcxKvzohyAvita Health System Galion HospitalComment on above:Performed By: #### CMP #### [address] [place] [address] VIRCreatinine [Mass/Vol]0.94 mg/dLNormal0.40-1.00ProHouston Methodist HospitalComment on above:Result Comment: METHOD TRACEABLE TO IDMS STANDARDPerformed By: #### CMP #### [facility] ([address] [place] [address] VIRGFR/1.73 sq M.predicted among non-blacks MDRD (S/P/Bld) [Vol rate/Area]83 mL/min/{1.73_m2}Normal>=60ProHouston Methodist HospitalComment on above:Result Comment: eGFR not reported due to non-numeric value for Creatinine. Reported eGFR is based on the CKD-EPI 2020 equation that does not use a race coefficient.Performed By: #### CMP #### [facility] ([address] [place] [address] VIRGlucose [Mass/Vol]94 mg/mMLyynqd00-75BfnRyrqrvHouston Methodist HospitalComment on above:Performed By: #### CMP #### [facility] ([facility]) [address] [place] [address] [place] [address] VIRPotassium [Moles/Vol]4.0 mmol/LNormal3.5-5.0ProHouston Methodist HospitalComment on above:Performed By: #### CMP #### [facility] ([address] [place] [address] VIRProtein [Mass/Vol]7.6 g/dLNormal6.0-8.0ProHouston Methodist HospitalComment on above:Performed By: #### CMP #### [facility] ([address] [place] [address] VIRSodium [Moles/Vol]134 mmol/KCmtsbj658-605NgnIltqbi [facility] HospitalComment on above:Performed By: #### CMP #### [facility] ([address] [address] VIRUrea nitrogen [Mass/Vol]18 mg/dLNormal5-23ProHouston Methodist HospitalComment on above:Performed By: #### CMP #### [facility] ([address] [place] [address] VIRCT ABDOMEN AND PELVIS W CONTon 20-71-5655PR ABDOMEN AND PELVIS W CONTCT ABDOMEN AND [...] Ish Shultz MD on 05/06/2025 3:46 PMNormalProMedica Baldwin Park HospitalTelephoneon [id number] Connie Salcido 1995 F Date Provider Department Center 05/02/2025 [facility] SUR[facility] Second Fl No family history on fileNormalUniversity of [facility] 22-10-2111RKJ&P reviewed. The patient was examined and there are no changes to the H&P.NormalUnFulton County Health CenterNURSNOTAurora East Hospital 33-35-5885CLXJNGVZIt alert and oriented x4, No signs of respiratory distress, discharged in stable condition. Pt walks with a steady gait, without assistance. Pt verbalized discharge instructions and follow up information. Pt transported via wheelchair to vehicle with responsible libertarian at this time.[facility] Medical CenterOPNOTAurora East Hospital 65-66-3428UZQVRA Attestation signed by Delfina Tanner MD at 05/05/2025 2:28 PM Please refer to my operation report. Date: 04/29/2025 Location: [facility] OR Name: Connie Salcido, : 1995, [...] Implants Type Name Action Serial No. Mesh MESH,SURCIGAL,PROGRIP,[id number] - [id number] Implanted Staff: Utility Operator: Daphney Garcia RN; Mckenzie Ko RN Relief Utility Operator: Daphney Garcia RN; Lamont Price RN Relief [...] scrubbed for the entire procedure. Delfina Tanner TipznxZjvuehqtziOhioHealth Marion General HospitalOPNOTEROBOTIC INCISIONAL HERNIA REPAIR WITH MESH Operative Note Date: 04/29/2025 Location: [facility] OR Name: Connie Salcido, : 1995, [...] Implants Type Name Action Serial No. Mesh MESH,SURCIGAL,PROGRIP,[id number] - [id number] Implanted Staff: Utility Operator: Daphney Garcia RN; Mckenzie Ko RN Relief Utility Operator: Daphney Garcia RN; Lamont Price RN Relief [...] the entire operatio (more content not included)...Normal [facility] JacksonPOCT GLUCOSE METER UNSOLICITED RESULTSon 94-29-6167Ldxarik [Mass/Vol]92 mg/tHGzfkzx78-020LwkedqeufsFulton County Health CenterComment on above:Order Comment: Waived Testing in the ED is performed under the ED CLIA certificate #[id number].Result Comment: ngrothaPerformed By: #### [id number] ####[facility] (BEAKER)[address] [place] [address] BASIC METABOLIC PANELon 42-84-3207Jdxrf gap [Moles/Vol]8 mmol/LNormal5-15 [facility] HospitalComment on above:Performed By: #### BMP #### [facility] ([facility]) [address] [place] [address] VIRCalcium [Mass/Vol]8.7 mg/dLNormal8.5-10.5PAvita Health System Galion HospitalComment on above:Performed By: #### BMP #### [facility] ([facility]) [address] [place] [address] VIRChloride [Moles/Vol]106 mmol/KUsnaub01-118EdbWrihuwHouston Methodist HospitalComment on above:Performed By: #### BMP #### [facility] ([facility]) [address] [place] [address] VIRCO2 [Moles/Vol]27 mmol/SLsuifu32-55HubGeiopiAvita Health System Galion HospitalComment on above:Performed By: #### BMP #### [facility] ([facility]) [address] [place] [address] VIRCreatinine [Mass/Vol]0.69 mg/dLNormal0.40-1.00[facility] HospitalComment on above:Result Comment: METHOD TRACEABLE TO IDMS STANDARDPerformed By: #### BMP #### [facility] ([facility]) [address] [place] [address] VIREGFR (CKD-EPI) NON-RACE DEPENDENT>^90Normal>=60ProHouston Methodist HospitalComment on above:Result Comment: Reported eGFR is based on the CKD-EPI 2020 equation that does not use a race coefficient.Performed By: #### BMP #### [facility] ([facility]) [address] [place] [address] VIRGlucose [Mass/Vol]91 mg/xOZduict18-11HtaOzwtlrHouston Methodist HospitalComment on above:Performed By: #### BMP #### [facility] ([facility]) [address] [place] [address] VIRPotassium [Moles/Vol]3.7 mmol/LNormal3.5-5.0[facility] HospitalComment on above:Performed By: #### BMP #### [facility] ([facility]) [address] [place] [address] VIRSodium [Moles/Vol]141 mmol/EAhunpu634-080NgpJutfzr Fremont HospitalComment on above:Performed By: #### BMP #### [facility] ([facility]) [address] [place] [address] VIRUrea nitrogen [Mass/Vol]8 mg/dLNormal5-23ProHouston Methodist HospitalComment on above:Performed By: #### BMP #### [facility] ([facility]) [address] [place] [address] VIRCBC WITH AUTO DIFFERENTIALon 33-83-9833RVWURXFSB ABSOLUTE COUNT (10*3/UL) BY AUTOMATED COUNT0.0 10*3/uLNormal0.0-0.2PAvita Health System Galion HospitalCommemorial healthcare on above:Performed By: #### CBCA #### [facility] ([facility]) [address] [place] [address] VIRBASOPHILS RELATIVE PERCENT BY AUTOMATED COUNT0.6 %Normal [facility] HospitalComment on above:Performed By: #### CBCA #### [facility] ([facility]) [address] [place] [address] VIRCELLAVISION DIFFERENTIAL TYPEAUTOMATED DIFFERENTIALNormal [facility] HospitalComment on above:Performed By: #### CBCA #### [facility] ([facility]) [address] [place] [address] VIREosinophils (Bld) [#/Vol]0.0 10*3/uLNormal0.0-0.4[facility] HospitalComment on above:Performed By: #### CBCA #### [facility] ([facility]) [address] [place] [address] VIREOSINOPHILS RELATIVE PERCENT BY AUTOMATED COUNT0.3 %Normal [facility] HospitalComment on above:Performed By: #### CBCA #### [facility] ([facility]) [address] [place] [address] VIRErythrocyte distribution width (RBC) [Ratio]13.5 %Normal 11.5-15[facility] HospitalComment on above:Performed By: #### CBCA #### [facility] ([facility]) [address] [place] [address] VIRHematocrit (Bld) [Volume fraction]42.3 %Yhacfz18-30MqnBmgaysOhio State Harding HospitalComment on above:Performed By: #### CBCA #### [facility] ([facility]) [address] [place] [address] VIRHemoglobin (Bld) [Mass/Vol]14.0 g/fRQmvycv02.7-15.5PAvita Health System Galion HospitalComment on above:Performed By: #### CBCA #### [facility] ([facility]) [address] [place] [address] VIRLYMPHOCYTES ABSOLUTE COUNT (10*3/UL) BY AUTOMATED COUNT2.6 10*3/uLNormal1.0-3.5PAvita Health System Galion HospitalComment on above:Performed By: #### CBCA #### [facility] ([facility]) [address] [place] [address] VIRLYMPHOCYTES RELATIVE PERCENT BY AUTOMATED COUNT33.3 %Normal [facility] HospitalComment on above:Performed By: #### CBCA #### [facility] ([facility]) [address] [place] [address] VIRMCH (RBC) [Entitic mass]29.9 dlVzmqng61-02HwyOrjzftOhio State Harding HospitalComment on above:Performed By: #### CBCA #### [facility] ([facility]) [address] [place] [address] VIRMCHC (RBC) [Mass/Vol]33.1 g/oMJloetl41-98WlwSigohqHouston Methodist HospitalComment on above:Performed By: #### CBCA #### [facility] ([facility]) [address] [place] [address] VIRMCV (RBC) [Entitic vol]91 yZCgjhhq95-135XxbOuvhrm [facility]remont HospitalComment on above:Performed By: #### CBCA #### [facility] ([facility]) [address] [place] [address] VIRMONOCYTES ABSOLUTE COUNT (10*3/UL) BY AUTOMATED COUNT0.2 10*3/uLNormal0.0-0.9[facility] HospitalCommemorial healthcare on above:Performed By: #### CBCA #### [facility] ([facility]) [address] [place] [address] VIRMONOCYTES RELATIVE PERCENT BY AUTOMATED COUNT3.1 %Normal [facility] HospitalComment on above:Performed By: #### CBCA #### [facility] ([facility]) [address] [place] [address] VIRNEUTROPHILS ABSOLUTE COUNT BY AUTOMATED COUNT4.9 10*3/uL Normal1.5-6.6[facility] HospitalComment on above:Performed By: #### CBCA #### [facility] ([facility]) [address] [place] [address] VIRNEUTROPHILS RELATIVE PERCENT BY AUTOMATED COUNT62.7 %Normal [facility] HospitalComment on above:Performed By: #### CBCA #### [facility] ([facility]) [address] [place] [address] VIRPlatelet mean volume (Bld) [Entitic vol]8.5 fLNormal7-12 [facility] HospitalComment on above:Performed By: #### CBCA #### [facility] ([facility]) [address] [place] [address] VIRPlatelets (Bld) [#/Vol]250 10*3/oMNsvvty147-513IhuJjkknn [facility]ont HospitalComment on above:Performed By: #### CBCA #### [facility] ([facility]) [address] [place] [address] VIRRBC COUNT4.67 X10E12/LNormal3.8-5.2PAvita Health System Galion HospitalComment on above:Performed By: #### CBCA #### [facility] ([facility]) [address] [place] [address] VIRWBC (Bld) [#/Vol]7.8 10*3/uLNormal4-11[facility] HospitalComment on above:Performed By: #### CBCA #### [facility] ([facility]) [address] [place] [address] VIRMRSA PCR NASAL SWABon 40-37-3029ZGGY PCR NASAL SWABNegative NormalNegativeOhio State Harding HospitalComment on above:Performed By: #### MRSPCR #### [facility] ([facility]) [address] [place] [address] VIRPROTIME AND INRon 32-17-4024SYK0.0Wpsmls5.9-1.2PAvita Health System Galion HospitalComment on above:Performed By: #### PINR #### [facility] ([facility]) [address] [place] [address] VIRPT Coag (PPP) [Time]11.7 sNormal9.8-13.2PAvita Health System Galion HospitalComment on above:Performed By: #### PINR #### [facility] ([facility]) [address] [place] [address] LGP56gj 26-11-059832Dnjjyz patient and surgery scheduled.[facility]36on [id number] called stating that someone was to call her to schedule surgery. I advised pt that staff is in clinic at the moment, but will be reaching out to her to schedule. Pt verbalized understanding.[facility] Telephoneon [id number] Connie Salcido Krystyna 1995 F Date Provider Department Center 03/31/2025 SAUNDRA LEAHY [facility] Second Fl No family history on fileNormalUniversElyria Memorial Hospital29on 34-56-814150Wzqetyiw by: LIBBY OCONNELL on: 04/01/2025 11:06 AM Modules accepted: OrdersNormalUniversElyria Memorial HospitalConsulton [id number] Connie Salcidoe 1995 F Date Provider Department Center 03/30/2025 DELFINA WILSON [facility] Second Fl No family history on file Level of Service:36777 NE OFFICE/OUTPATIENT NEW MODERATE MDM 45 MINUTES Reason for Visit and Comments: Consult [484] - Patient here for a consult of a ventral hernia.[facility] CenterHPon 60-08-7891YWvzlCcvqzhhfra Patient ID: Connie Salcido is a 29 [...] the past 36 hours). No follow-ups on file.NormalUnFulton County Health CenterIGP,APTIMA HPV,AGE GDLNon 97-58-6849FWL GDLN ACOG TESTINGNote.[facility]OMS HealthcareComment on above:TESTS RESULT FLAG UNITS REF RANGE LAB Clinician Provided Cytology Information Source.............Vagina No. of containers..01 ThinPrep Vial Age Algo ACOG Jerilyn... 30-65 01 FLAG LEGEND: L-Low Normal,H-High Normal,LL-Alert Low,HH-Alert High <-Panic Low,>-Panic High,A-Abnormal,AA-Critical Abnormal Performed at: 01 =[address] [address] Martha Chen MD, HPV APTIMANegativeNegativeNOMS HealthcareComment on above:This nucleic acid amplification test detects fourteen high- risk HPV types (16,18,31,33,35,39,45,51,52,56,58,59,66,68) without differentiation. Performed at: =[facility] [id number] Registry Nurse: Martha Chen MD, Phone: [phone] Performed at: [address] [id number] Registry Nurse: Martha Chen MD, Phone: [phone] IGP, APTIMA HPV, RFX 16/18,45Note.NOMS HealthcareComment on above:TESTS RESULT FLAG UNITS REF RANGE LAB DIAGNOSIS: 02 NEGATIVE FOR INTRAEPITHELIAL LESION OR MALIGNANCY. Specimen adequacy: 02 Satisfactory for evaluation. Performed by: 02 Jessica Bo, Gauntlet Pairer (ASC) . 02 Note: Note 02 The [...] <-Panic Low,>-Panic High,A-Abnormal,AA-Critical Abnormal Performed at: [address] [address] Martha Chen MD, SPATULA-ALONE VAGINA CLINSCRIPPS GREEN HOSPITALNCVAL[facility] HealthcarePatient Letter FTon 49-57-6750Lqaezkw Letter [facility] 06, 2024 CONNIE SALCIDO [address] [place] [address] : 1995 Dear Connie, You missed your [...] any future cancellations. Sincerely, [facility] [address], [place] [address] VvsxpoRwdljiWestern Reserve HospitalUS PELVIS W/ TRANSVAGINALon 80-28-4299RulD[place] [address] Ultrasound Report Signed Patient: CONNIE SALCIDO MR#: [id number] : 1995 Acct:[id number] Age/Sex: 27 / F ADM Date: 10/14/23 Loc: [facility] Attending Dr: Noah Walton D.O. Ordering Physician: Noah Walton D.O. Date of Service: 10/14/23 Procedure(s): US pelvis w/ transvaginal Accession Number(s): [id number] cc: Noah Walton D.O.; Valerie Way M.D. [address] [address] Patient Name: CONNIE SALCIDO MRN: [facility]:[id number] date: 1995 Sex: F Assigned Patient Location: [facility] Current Patient Location: [facility] Accession/Order Number: [id number] Exam Date: 10/14/2023 10:55 Report Date: 10/14/2023 [...] By: Ayad Biggs M.D. Signed By: 10/14/23 1254 DD/ 1252 TD/TT: Forming Machine Upkeep Mechanic Helper:TBHRadiology, Radiologist, - 10/14/2023 [address] [place] [id number] Ultrasound Report Signed Patient: CONNIE SALCIDO MR#: [id number] : 1995 Acct:[id number] Age/Sex: 27 / F ADM Date: 10/14/23 Loc: [facility] Attending Dr: Noah Walton D.O. Ordering Physician: Noah Walton D.O. Date of Service: 10/14/23 Procedure(s): US pelvis w/ transvaginal Accession Number(s): [id number] cc: Noah Walton D.O.; Valerie Way M.D. The [address] [address] Patient Name: CONNIE SALCIDO MRN: [id number] date: 1995 Sex: F Assigned Patient Location: [facility] Current Patient Location: [facility] Accession/Order Number: [id number] Exam Date: 10/14/2023 10:55 Report Date: 10/14/2023 [...] By: Ayad Biggs M.D. Signed By: 10/14/23 1254 DD/ 1252 TD/TT: Forming Machine Upkeep Mechanic Helper: MARIANA HealthcareRadiology Study observation (narrative)MARIANA HealthcareUS PELVIS W/ TRANSVAGINALOrdered By: Radiologist Radiology on 81-48-8774YRSJ [employer] Work Phone: ED Note-Physicianon 43-15-0467QA Note-Physician [id number]#1.00[facility] Campuscreenson 23-19-4346Hhfaqel [id number]#1.00[facility] Medical CenterAmbulatory Visit Summaryon 48-56-6337Fdgevezpya Visit Summary CONNIE SALCIDO :1995 Visit Date:08/19/2023 Ambulatory Visit Instructions Your Diagnosis Kidney stones Asymptomatic microscopic hematuria Mixed incontinence OAB (overactive bladder) Tests Performed Urnls Dip Stick Auto w/o Microscopy POC 13492 Your Care Team Attending Physician - ADÁN [...] PA-C, KERA E Where: [facility] Educationon 50-04-0987Saqfwmh EducationObstetrics and Gynecology Overactive Bladder, Adult Overactive [...] health care provider. General instructions ? Take palq-qnk-vmefqfn and prescription medicines only as told by [...] care provider monitor yo (more content not included)...[facility] Reserve HospitalUrology Office/Clinic Noteon 61-64-9900Grtttgp Office/Clinic NoteChief Complaint 1yr HPI Staff PRW pt 1yr KUB *pt did not get KUB done. Was not aware one was ordered. However did get CT done @ [facility] ER08/14/23 DX: Microscopic Hematuria, Hx of Kidney Stones, Nocturia, Stress Incontinence & Frequency Last Stone Procedure 01/25/21 ([facility]) Denies flank pain. Has been lower abdominal discomfort for the past week. Did go to [facility] ER 08/14/23. frequency during the day, getting [...] that she is aware of. Seen at [facility] ER for RLQ abdominal discomfort 08/14/23 - [...] day(s), # 90 tab(s), Refills(s) 0, Pharmacy: [facility] #72, 154, cm, 08/19/23 15:05:00 EST, Height/Length Dosing, 129.5, kg, 08/19/23 15:05:00 EST, Weight Dosing Follow-up No qualifying data available Patient Education Kidney Stones, Uvjg-pi-Upqw Hematuria, Adult Overactive Bladder, Adult Problem List/Past [...] Oral, Daily Allergies Dilaudid (Nausea and vomiting) [place] (Nausea and vomiting) Social History Alcohol - Denies Alcohol Use, 01/19/2021 Substance Abuse Tobacco Never (less than 100 in lifetime) Tobacco Use:. Never Smokeless Tobacco Use:. Household tobacco concerns: No. Yes, 08/19/2023 Family History Heart disease: Mother. Kidney stone: Mother. Migraine: Mother. Immunizations Vaccine Date Status influenza virus vaccine, inactivated 06/18/2022 Recorded SARS-CoV-2 (COVID-19) mRNAMUL.ORD![id number] 06/18/2022 Recorded SARSCoV2 mRNA(gwwryfkph-tfut-vttipz) vac 12/03/2021 Recorded SARSCoV2 mRNA(oajpbfycu-bogt-tpmnqu) vac 10/25/2021 R (more content not included)...Western Reserve HospitalComment on above:Result Comment: Electronically Signed By: ADÁN Coello APRN, [place] X\.br\Date and Time Signed: 08/19/23 16:30 ESTNOR[facility] A[facility]G PANEL 2: 21 to 29on 12-24-2022..[facility] HospitalComment on above:Performed By: #### LACT #### [facility] [address] [place] [address] Dr. Tho Casper Gdln ACOG Emnrale79-27XsnjasFliMercy Health St. Elizabeth Boardman HospitalComment on above:Performed By: #### LACT #### [facility] [address] [place] [address] Dr. Tho HardyDIAGNOSIS:CommentBethesda North Hospital on above: Result Comment: NEGATIVE FOR INTRAEPITHELIAL LESION OR MALIGNANCY.Performed By: #### LACT #### [facility] [address] [place] [address] Dr. Tho HardyMethodology:CommentBethesda North Hospital on above: Result Comment: This liquid based ThinPrep(R) pap test was screened with the use of an image guided system.Performed By: #### LACT #### [facility] [address] [place] [address] Dr. Tho HardyNote:CommentBethesda North Hospital on above:Result Comment: The Pap smear is a screening test designed to aid in the detection of premalignant and malignant conditions of the uterine cervix. It is not a diagnostic procedure and should not be used as the sole means of detecting cervical cancer. Both false-positive and false-negative reports do occur. .Performed By: #### LACT #### [facility] [address] [place] [address] Dr. Tho HardyPerformed by:CommentBethesda North Hospital on above: Result Comment: Julieta Choudhary, Gauntlet Pairer (ASCP)Performed By: #### LACT #### [place] [address] Dr[address] Tho HardyReflex Criteria:[facility] on above:Result Comment: The HPV DNA reflex criteria were not met with this specimen result therefore, no HPV testing was performed. .Performed By: #### LACT #### [facility] [address] [place] [address] Dr. Tho HardySpecimen adequacy:CommentBethesda North Hospital on above:Result Comment: Satisfactory for evaluation. Endocervical and/or squamous metaplastic cells (endocervical component) are present.Performed By: #### LACT #### [facility] [address] [place] [address] Dr. Tho HardyXR RIBS LT PA Ryan 50-03-6952OR RIBS LT PA CHEXAMINATION: XR RIBS LT PA CH HISTORY: Congenital anomaly of rib COMPARISON: 08/04/2022 FINDINGS: LUNGS: No significant pulmonary parenchymal abnormalities. PLEURA: No pneumothorax, effusion, or pleural thickening. MEDIASTINUM: No visible mass or adenopathy. CARDIAC: No cardiomegaly or cardiac silhouette abnormality. RIBS: No acute rib fracture IMPRESSION: Clear lungs No acute rib fracture Electronically authenticated by: AYAD MALCOLM Date: 2022-11-14 07:04NoBerger HospitalXR ANKLE LT MIN 3 Von 90-19-7344OR ANKLE LT MIN 3 VEXAM: XR ANKLE [...] Electronically authenticated by: NISREEN DUNNE Date: 2022 15:34[facility] HospitalCBC AUTO DIFFon 26-74-7080GVST #0.0 103/ulNormal0.0-0.1[facility] - WestComment on above:Performed By: #### CBC #### [facility] [address] [address] [address] Tho Moreiraphils/100 WBC (Bld)0.3 %Normal0.2-2.0[facility] Comment on above:Performed By: #### CBC #### [facility] [address] [place] [address] [address] Tho Saeed #0.1 103/ulNormal0.0-0.7The [facility] HospitalComment on above: Performed By: #### CBC #### [facility] [address] [place] [address] Dr. Tho Rosalesosinophils/100 WBC (Bld)1.5 %Normal0.9-7.0The [facility] Comment on above:Performed By: #### CBC #### [facility] [address] [place] [address] Dr. Tho Rosalesrythrocyte distribution width (RBC) [Ratio]12.7 %Tgdspa06.0-15.0 The [facility] HospitalComment on above:Performed By: #### CBC #### [facility] [address] [place] [address] Dr. Tho HardyHematocrit (Bld) [Volume fraction]44.9 %Udogzi69.0-48.0The [facility] HospitalComment on above:Performed By: #### CBC #### [facility] [address] [place] [address] Dr. Tho HardyHemoglobin (Bld) [Mass/Vol]14.3 g/oHXqxwak56.0-16.0The [facility] HospitalComment on above:Performed By: #### CBC #### [facility] [address] [place] [address] Dr. Tho Rios #0.02 10e3/ulNormal0.00-0.03The [facility] HospitalComment on above:Performed By: #### CBC #### [facility] [address] [place] [address] Dr. Tho Rios %0.3 %Normal0.0-0.5The [facility] HospitalComment on above: Performed By: #### CBC #### [facility] [address] [place] [address] Dr. Tho BenzH #1.9 103/ulNormal1.2-3.8The [facility] HospitalComment on above:Performed By: #### CBC #### [facility] [address] [place] [address] Dr. Yilan ChangLymphocytes/100 WBC (Bld)27.7 %Popzwf23.5-60.0The [facility] HospitalComment on above:Performed By: #### CBC #### [facility] [address] [place] [address] Dr. Tho Medina DIFF REQNONormalThe [facility] HospitalComment on above: Performed By: #### CBC #### [facility] [address] [place] [address] Dr. Tho Sung (RBC) [Entitic mass]30.3 kwLtirqn59.7-34.0The [facility] HospitalComment on above:Performed By: #### CBC #### [facility] [address] [place] [address] Dr. Tho Sung (RBC) [Mass/Vol]31.8 g/sCUasasc30.9-35.2The [facility] HospitalComment on above:Performed By: #### CBC #### [facility] [address] [place] [address] Dr. Tho Gomez (RBC) [Entitic vol]95.1 bSZbhovd71.0-99.0The [facility] HospitalComment on above:Performed By: #### CBC #### [facility] [address] [place] [address] Dr. Tho Camp #0.5 103/ulNormal0.3-0.8The [facility] HospitalComment on above:Performed By: #### CBC #### [facility] [address] [place] [address] Dr. Tho Espinalocytes/100 WBC (Bld)7.6 %Normal1.7-12.0The [facility] Comment on above:Performed By: #### CBC #### [facility] [address] [place] [address] Dr. Tho Swanson #4.2 103/ulNormal1.4-6.5The [facility] HospitalComment on above:Performed By: #### CBC #### [facility] [address] [place] [address] Dr. Tho Duronophils/100 WBC (Bld)62.6 %Jrfwrt36.0-75.0The [facility] HospitalComment on above:Performed By: #### CBC #### [facility] [address] [place] [address] Dr. Tho De Los Santos mean volume (Bld) [Entitic vol]10.0 fLNormal9.5-13.5The [facility] HospitalComment on above:Performed By: #### CBC #### [facility] [address] [place] [address] Dr. Tho HardyPLT242 103/vsFqxhsi081-337Iwp [facility] HospitalCommemorial healthcare on above: Performed By: #### CBC #### [facility] [address] [place] [address] Dr. Tho HardyRBC4.72 106/ulNormal4.20-5.40The [facility] HospitalCommemorial healthcare on above:Performed By: #### CBC #### [facility] [address] [place] [address] Dr. Tho HardyWBC6.7 103/ulNormal4.0-11.0The [facility] HospitalCommemorial healthcare on above: Performed By: #### CBC #### [facility] [address] [place] [address] Dr. Tho Cardoso URINE PROFILEon 72-53-9327Twgoatked Ql (U)NegativeNormal NEGATIVEThe [facility] HospitalCommemorial healthcare on above:Performed By: #### LACT #### [facility] [address] [place] [address] Dr. Tho Bronson (U)CLEARNormalCLEARThe [facility] HospitalCommemorial healthcare on above: Performed By: #### LACT #### [facility] [address] [place] [address] Dr. Tho Hernandes (U)YELLOWNormalYELLOWLake County Memorial Hospital - WestComment on above: Performed By: #### LACT #### [facility] [address] [place] [address] Dr. Tho Hatch micrscopic examination will be performed if indicated. NormalThe [facility] HospitalComment on above:Performed By: #### LACT #### [facility] [address] [address] [address] Tho HardyGlucose Ql (U)NegativeNormalNEGATIVELake County Memorial Hospital - WestComment on above:Performed By: #### LACT #### [facility] [address] [address] [address] Tho HardyHemoglobin Ql (U)MODERATEAbnormalNEGATIVELake County Memorial Hospital - West Comment on above:Performed By: #### LACT #### [facility] [address] [place] [address] [address] Tho HardyKetones Ql (U)NegativeNormalNEGATIVELake County Memorial Hospital - WestComment on above:Performed By: #### LACT #### [facility] [address] [place] [address] Dr. Tho HardyLEUKOCYTESNegativeNormalNEGATIVELake County Memorial Hospital - WestComment on above:Performed By: #### LACT #### [facility] [address] [place] [address] Dr. Tho HardyNitrite Ql (U)NegativeNormalNEGATIVELake County Memorial Hospital - WestComment on above:Performed By: #### LACT #### [facility] [address] [place] [address] Dr. Tho HardypH (U)5.5 [pH]Normal5-9[facility] - WestComment on above: Performed By: #### LACT #### [facility] [address] [place] [address] Dr. Tho aHrdySPEC GRAVITY>=1.494Stegcned5.005-<=1.025[facility] Comment on above:Performed By: #### LACT #### [facility] [address] [place] [address] Dr. Tho Rodriguez PROTEINNegativeMercy Hospital JoplinalNEGATIVE/ TRACELake County Memorial [facility] Comment on above:Performed By: #### LACT #### [facility] [address] [place] [address] Dr. Tho Garcia MICRO INDINDICATEDNoalThSamaritan HospitalComment on above: Performed By: #### LACT #### [facility] [address] [place] [address] Dr. Tho Jonesbilinogen Qn (U)0.2 {Roland'U}/dLNormal0.2 - 1.0The [facility] HospitalComment on above:Performed By: #### LACT #### [facility] [address] [place] [address] Dr. Tho HardyPREGNANCY URon [id number], QUALNegativeNormalNEGATIVEThe [facility] HospitalComment on above:Performed By: #### LACT #### [facility] [address] [place] [address] Dr. Tho SaundersF CHEM 8 (BAS METB)on [id number] gap [Moles/Vol]12.8 mmol/LNormalThe [facility] HospitalComment on above:Performed By: #### BMP #### [facility] [address] [place] [address] Dr. Tho HardyCalcium [Mass/Vol]8.7 mg/dLNormal8.5-10.1The [facility] Comment on above:Performed By: #### BMP #### [facility] [address] [place] [address] Dr. Tho HardyChloride [Moles/Vol]104 mmol/HUpzdzv34-916Ndh [facility] Comment on above:Performed By: #### BMP #### [facility] [address] [place] [address] Dr. hTo HardyCO2 [Moles/Vol]28.4 mmol/BIrrmxl26.0-32.0The [facility] Comment on above:Performed By: #### BMP #### [facility] [address] [place] [address] Dr. Tho HardyCreatinine [Mass/Vol]0.65 mg/dLNormal0.55-1.02The [facility] HospitalComment on above:Performed By: #### BMP #### [facility] [address] [place] [address] Dr. Tho RosalesGFR-AF PRYDEINIG>60Normal>=60The [facility] HospitalComment on above:Performed By: #### BMP #### [facility] [address] [place] [address] Dr. Tho RosalesGFR-NON AF PRYDEINIG>60Normal>=60The [facility] HospitalComment on above:Performed By: #### BMP #### [facility] [address] [address] [address] Tho HardyGlucose [Mass/Vol]86 mg/jSDtihyb56-568Bef [facility] Comment on above:Performed By: #### BMP #### [facility] [address] [place] [address] Dr. Tho HardyPotassium [Moles/Vol]3.2 mmol/LCritically low3.5-5.1The [facility] HospitalComment on above:Performed By: #### BMP #### [facility] [address] [place] [address] Dr. Tho Brunodium [Moles/Vol]142 mmol/UBeeyfz285-654Pwb [facility] Comment on above:Performed By: #### BMP #### [facility] [address] [place] [address] Dr. Tho Alba nitrogen [Mass/Vol]11.0 mg/dLNormal7.0-18.0The [facility] HospitalComment on above:Performed By: #### BMP #### [facility] [address] [place] [address] Dr. Tho Alba nitrogen/Creatinine [Mass ratio]16.9 mg/mgNoBerger HospitalCommemorial healthcare on above:Performed By: #### BMP #### [facility] [address] [address] [address] Tho Motley MICROSCOPIC ONLYon [id number]J SEEN [facility] WestComment on above:Performed By: #### LACT #### [facility] [address] [place] [address] Dr. Tho HardyBacteria identified Cx Nom (U)NOT INDICATEDNormalThe [facility] HospitalComment on above:Performed By: #### LACT #### [facility] [address] [address] [address] Tho HardyCASTJACLYNE SEENNormalNONE SEENAdena Pike [facility] on above:Performed By: #### LACT #### [facility] [address] [place] [address] Dr. Tho Moore LM Nom (Urine sed)NONE SEENNormalNONE SEENThe [facility] HospitalComment on above:Performed By: #### LACT #### [facility] [address] [place] [address] Dr. Tho Rosalespithelial cells LM Ql (Urine sed)FEWAbnormalNONE SEEN /RAREThe [facility] on above:Performed By: #### LACT #### [facility] [address] [place] [address] Dr. Tho LandaCOUSROXANN SEENNormalNONE SEENAdena Pike [facility] on above:Performed By: #### LACT #### [facility] [address] [place] [address] Dr. Tho SmithBofpuVYL5-4Sdrziz4-5Bol [facility] on above:Performed By: #### LACT #### [facility] [address] [place] [address] Dr. Tho HardyWBCROXANN SEENNormalNONE SEENAdena Pike Medical [facility] on above: Performed By: #### LACT #### [facility] [address] [place] [address] Dr. Tho Esquivel AUTO DIFFon [id number] #0.0 103/ulNormal0.0-0.1The [facility] on above:Performed By: #### LACT #### [facility] [address] [place] [address] Dr. Tho HardyBasophils/100 WBC (Bld)0.1 %Critically low0.2-2.0The [facility] on above:Performed By: #### LACT #### [facility] [address] [place] [address] Dr. Tho Saeed #0.2 103/ulNormal0.0-0.7The [facility] HospitalComment on above: Performed By: #### LACT #### [facility] [address] [place] [address] Dr. Tho Rosalesosinophils/100 WBC (Bld)2.3 %Normal0.9-7.0The [facility] Comment on above:Performed By: #### LACT #### [facility] [address] [place] [address] Dr. Tho Rosalesrythrocyte distribution width (RBC) [Ratio]12.7 %Hyxysr51.0-15.0 The [facility] HospitalComment on above:Performed By: #### LACT #### [facility] [address] [place] [address] Dr. Tho HardyHematocrit (Bld) [Volume fraction]43.4 %Ihjwyv44.0-48.0The [facility] HospitalComment on above:Performed By: #### LACT #### [facility] [address] [place] [address] Dr. Tho HardyHemoglobin (Bld) [Mass/Vol]14.6 g/pDFplrqa89.0-16.0The [facility] HospitalComment on above:Performed By: #### LACT #### [facility] [address] [place] [address] Dr. Tho Rios #0.02 10e3/ulNormal0.00-0.03The [facility] HospitalComment on above:Performed By: #### LACT #### [facility] [address] [place] [address] Dr. Tho Rios %0.2 %Normal0.0-0.5The [facility] HospitalComment on above: Performed By: #### LACT #### [facility] [address] [place] [address] Dr. Tho Robles #1.8 103/ulNormal1.2-3.8The [facility] HospitalComment on above:Performed By: #### LACT #### [facility] [address] [place] [address] Dr. Tho Hallmphocytes/100 WBC (Bld)20.5 %Daqrqm05.5-60.0The [facility] HospitalComment on above:Performed By: #### LACT #### [facility] [address] [place] [address] Dr. Tho Medina DIFF REQNONormalThe [facility] HospitalComment on above: Performed By: #### LACT #### [facility] [address] [place] [address] Dr. Tho Sung (RBC) [Entitic mass]30.4 uaHpwxpd64.7-34.0The [facility] HospitalComment on above:Performed By: #### LACT #### [facility] [address] [place] [address] Dr. Tho Sung (RBC) [Mass/Vol]33.6 g/iFKtonjy87.9-35.2The [facility] HospitalComment on above:Performed By: #### LACT #### [facility] [address] [place] [address] Dr. Tho Sung (RBC) [Entitic vol]90.4 pBTwnbvn73.0-99.0The [facility] HospitalComment on above:Performed By: #### LACT #### [facility] [address] [place] [address] Dr. Tho Camp #0.5 103/ulNormal0.3-0.8The [facility] HospitalComment on above:Performed By: #### LACT #### [facility] [address] [place] [address] Dr. Tho Espinalocytes/100 WBC (Bld)5.5 %Normal1.7-12.0The [facility] Comment on above:Performed By: #### LACT #### [facility] [address] [place] [address] Dr. Tho Swanson #6.2 103/ulNormal1.4-6.5The [facility] HospitalComment on above:Performed By: #### LACT #### [facility] [address] [address] [address] Tho Michaudutrophils/100 WBC (Bld)71.4 %Sxudcz10.0-75.0The [facility] on above:Performed By: #### LACT #### [facility] [address] [address] [address] Tho Nailslet mean volume (Bld) [Entitic vol]9.5 fLNormal9.5-13.5The [facility] HospitalComment on above:Performed By: #### LACT #### [facility] [address] [place] [address] Dr. Tho HardyPLT234 103/xeMlvdcd402-855Der [facility] on above: Performed By: #### LACT #### [facility] [address] [place] [address] Dr. Tho HardyRBC4.80 106/ulNormal4.20-5.40The [facility] on above:Performed By: #### LACT #### [facility] [address] [place] [address] Dr. Tho HardyWBC8.7 103/ulNormal4.0-11.0The [facility] on above: Performed By: #### LACT #### [facility] [address] [place] [address] Dr. Tho Cardoso URINE PROFILEon 11-80-6177Xiarcsevd Ql (U)NegativeNormal NEGATIVEThe [facility] HospitalCommemorial healthcare on above:Performed By: #### PREGU, ERUR, UMICRO #### [facility] [address] [place] [address] Dr. Tho Bronson (U)CLEARNormalCLEARThe [facility] HospitalCommemorial healthcare on above: Performed By: #### PREGU, ERUR, UMICRO #### [facility] [address] [place] [address] Dr. Tho Hernandes (U)YELLOWNormalYELLOWThe [facility] HospitalComment on above: Performed By: #### PREGU, ERUR, UMICRO #### [facility] [address] [address] [address] Tho Hatch micrscopic examination will be performed if indicated. NormalThe [facility] HospitalComment on above:Performed By: #### PREGU, ERUR, UMICRO #### [facility] [address] [address] [address] Tho HardyGlucose Ql (U)NegativeNormalNEGATIVEFulton County Health Center HospitalComment on above:Performed By: #### PREGU, ERUR, UMICRO #### [facility] [address] [address] [address] Tho HardyHemoglobin Ql (U)SMALLAbnormalNEGATIVECincinnati Va Medical Center on above:Performed By: #### PREGU, ERUR, UMICRO #### [facility] [address] [address] [address] Tho HardyKetones Ql (U)NegativeNormalNEGATIVELake County [facility] Hospital - WestComment on above:Performed By: #### PREGU, ERUR, UMICRO #### [facility] [address] [address] [address] Tho HardyLEUKOCYTESNegativeNormalNEGATIVELake County Memorial Hospital - WestComment on above:Performed By: #### PREGU, ERUR, UMICRO #### [facility] [address] [address] [address] Tho HardyNitrite Ql (U)NegativeNormalNEGATIVELake County Memorial Hospital - WestComment on above:Performed By: #### PREGU, ERUR, UMICRO #### [facility] [address] [address] [address] Tho HardypH (U)5.5 [pH]Normal5-9[facility] WestComment on above: Performed By: #### PREGU, ERUR, UMICRO #### [facility] [address] [address] [address] Tho HardySPEC GRAVITY>=1.926Qpblsumx1.005-<=1.025The [facility] Comment on above:Performed By: #### PREGU, ERUR, UMICRO #### [facility] [address] [place] [address] Dr. Tho Rodriguez PROTEINTRACENormalNEGATIVE/ TRACEThe [facility] HospitalComment on above:Performed By: #### PREGU, ERUR, UMICRO #### [facility] [address] [place] [address] Dr. Tho CRAIG INDINDICATEDNormalThe [facility] HospitalComment on above: Performed By: #### PREGU, ERUR, UMICRO #### [facility] [address] [place] [address] Dr. Tho Fonseca Qn (U)0.2 {Roland'U}/dLNormal0.2 - 1.0The [facility] HospitalComment on above:Performed By: #### PREGU, ERUR, UMICRO #### [facility] [address] [place] [address] Dr. Tho Bradley PANEL (PCR)on 50-33-9235Yhwqlsavcw F 40/41Not detectedNormal NOT DETECTEDThe [facility] HospitalComment on above:Performed By: #### MARIOANEL #### [facility] [address] [place] [address] Dr. Tho HardyAstrovirusNot detectedNormalNOT DETECTEDThe [facility] Comment on above:Performed By: #### MARIOANEL #### [facility] [address] [place] [address] Dr. Tho Mccain. Diff toxin A/BNot detectedNormalNOT DETECTEDThe [facility] HospitalComment on above:Performed By: #### GIPANEL #### [facility] [address] [place] [address] Dr. Tho SavagepylobacterNot detectedNormalNOT DETECTEDThe [facility] Comment on above:Performed By: #### MARIOANEL #### [facility] [address] [place] [address] Dr. Yilan ChangCryptosporidiumNot detectedNormalNOT DETECTEDThe [facility] HospitalComment on above:Performed By: #### GIPANEL #### [facility] [address] [address] [address] Tho Richardsonos. CayetanensisNot detectedNormalNOT DETECTEDThe [facility] HospitalComment on above:Performed By: #### GIPANEL #### [facility] [address] [address] [address] Tho Dickey Coli V275Tap ApplicableNormalNot ApplicableThe [facility] HospitalComment on above:Performed By: #### GIPANEL #### [facility] [address] [address] [address] Tho Dickey histolyticaNot detectedNormalNOT DETECTEDThe [facility] Comment on above:Performed By: #### GIPANEL #### [facility] [address] [address] [address] Tho RosalesAECNot detectedNormalNOT DETECTEDThe [facility] HospitalComment on above:Performed By: #### GIPANEL #### [facility] [address] [address] [address] Tho RosalesIECNot detectedNormalNOT DETECTEDThe [facility] HospitalCommemorial healthcare on above:Performed By: #### GIPANEL #### [facility] [address] [address] [address] Tho RosalesPECYvonne detectedNormalNOT DETECTEDThe [facility] HospitalComment on above:Performed By: #### GIPANEL #### [facility] [address] [address] [address] Tho RosalesTECNot detectedNormalNOT DETECTEDThe [facility] HospitalComment on above:Performed By: #### GIPANEL #### [facility] [address] [address] [address] Tho Ashley LambliaNot detectedNormalNOT DETECTEDThe [facility] Comment on above:Performed By: #### GIPANEL #### [facility] [address] [address] [address] Tho Bowman CONTROLSPASSTrinity Health System East CampusComment on above:Performed By: #### LUCASL #### [facility] [address] [address] [address] Tho CESPEDES HEADERGI [facility] Comment on above:Performed By: #### NATALEE #### [facility] [address] [address] [address] Tho Salas ECOLIGI PANEL DIARRHEAGENIC E.COLI / SHIGELLAMercy Health St. Elizabeth Boardman HospitalComment on above:Performed By: #### NATALEE #### [facility] [address] [address] [address] Tho Salas INFOSEE Medina HospitalComment on above: Result Comment: EAEC- Enteroaggregative E. Coli EPEC- Enteropathogenic E. Coli ETEC- Enterotoxigenic E. Coli lt/st STEC- Shigella-like toxin-producing E. Coli stx1/stx2 EIEC- Shigella/Enteroinvasive E. ColiPerformed By: #### NATALEE #### [facility] [address] [address] [address] Tho Salas PARASITESGI PANEL PARASITESMercy Health St. [facility] Comment on above:Performed By: #### LUCASL #### [facility] [address] [address] [address] Tho Salas VIRUSGI PANEL VIRUSESMercy Health St. Elizabeth Board[facility] HospitalComment on above:Performed By: #### NATALEE #### [facility] [address] [address] [address] Tho Srinivasanvirus GI/GIINot detectedNormalNOT DETECTEDLake County Memorial Hospital - WestComment on above:Performed By: #### NATALEE #### [facility] [address] [address] [address] Tho Lopez ShigelloidesNot detectedNormalNOT DETECTEDThe [facility] HospitalComment on above:Performed By: #### NATALEE #### [facility] [address] [address] [address] Tho HardyRotavirus ANot detectedNormalNOT DETECTEDThe [facility] Comment on above:Performed By: #### GIPANEL #### [facility] [address] [address] [address] Tho HardySalmonellaNot detectedNormalNOT DETECTEDLake County [facility] Comment on above:Performed By: #### GIPANEL #### [facility] [address] [address] [address] Tho HardySapovirusNot detectedNormalNOT DETECTEDThe [facility] Comment on above:Performed By: #### GIPANEL #### [facility] [address] [address] [address] Tho HardySTECNot detectedNormalNOT DETECTEDThe [facility] HospitalComment on above:Performed By: #### GIPANEL #### [facility] [address] [address] [address] Tho MotleybrioNot detectedNormalNOT DETECTEDThe [facility] HospitalComment on above:Performed By: #### GIPANEL #### [facility] [address] [address] [address] Tho Delcidio CholeraNot detectedNormalNOT DETECTEDLake County [facility] Comment on above:Performed By: #### GIPANEL #### [facility] [address] [address] [address] Tho Mendoza. EnterocoliticaNot detectedNormalNOT DETECTEDThe [facility] HospitalComment on above:Performed By: #### GIPANEL #### [facility] [address] [address] [address] Tho DicksonGNANCY URon [id number], QUALNegativeNormalNEGATIVEThe [facility] HospitalComment on above:Performed By: #### PREGU, ERUR, UMICRO #### [facility] [address] [address] [address] Tho HardyPROF CHEM 8 (BAS METB)on 54-42-1978Oiooi gap [Moles/Vol]15.6 mmol/LNormalThe [facility] HospitalComment on above:Performed By: #### BMP #### [facility] [address] [address] [address] Tho HardyCalcium [Mass/Vol]9.0 mg/dLNormal8.5-10.1[facility] Comment on above:Performed By: #### BMP #### [facility] [address] [address] [address] Tho HardyChloride [Moles/Vol]104 mmol/RKpbrnb28-873RrsLake County Memorial Hospital [facility] Comment on above:Performed By: #### BMP #### [facility] [address] [address] [address] Tho HardyCO2 [Moles/Vol]24.0 mmol/ILocbos08.0-32.0[facility] Comment on above:Performed By: #### BMP #### [facility] [address] [address] [address] Tho HardyCreatinine [Mass/Vol]0.73 mg/dLNormal0.55-1.02[facility] WestComment on above:Performed By: #### BMP #### [facility] [address] [address] [address] Tho RosalesGFR-AF PRYDEINIG>60Normal>=60[facility] - WestComment on above:Performed By: #### BMP #### [facility] [address] [address] [address] Tho RosalesGFR-NON AF PRYDEINIG>60Normal>=60The [facility] HospitalComment on above:Performed By: #### BMP #### [facility] [address] [address] [address] Tho HardyGlucose [Mass/Vol]85 mg/rQUktsrt54-352JnvLake County Memorial Hospital [facility] Comment on above:Performed By: #### BMP #### [facility] [address] [address] [address] Tho HardyPotassium [Moles/Vol]3.6 mmol/LNormal3.5-5.1The [facility] Comment on above:Performed By: #### BMP #### [facility] [address] [address] [address] Tho Brunodium [Moles/Vol]140 mmol/VVivhnr630-642Zdt [facility] Comment on above:Performed By: #### BMP #### [facility] [address] [address] [address] Tho HardyUrea nitrogen [Mass/Vol]12.0 mg/dLNormal7.0-18.0The [facility] HospitalComment on above:Performed By: #### BMP #### [facility] [address] [address] [address] Tho Alba nitrogen/Creatinine [Mass ratio]16.4 mg/mgNoBerger HospitalComment on above:Performed By: #### BMP #### [facility] [address] [address] [address] Tho Motley MICROSCOPIC ONLYon [id number]E SEEN [facility] - WestComment on above:Performed By: #### PREGU, ERUR, UMICRO #### [facility] [address] [address] [address] Tho Causey identified Cx Nom (U)NOT INDICATEDNoBerger HospitalCommemorial healthcare on above:Performed By: #### PREGU, ERUR, UMICRO #### [facility] [address] [address] [address] Tho Manzanares SEENNormalNONE SEENThe [facility] Hospitalment on above:Performed By: #### PREGU, ERUR, UMICRO #### [facility] [address] [address] [address] Tho Moore LM Nom (Urine sed)NONE SEENNormalNONE SEENAdena Pike Medical Center on above:Performed By: #### PREGU, ERUR, UMICRO #### [facility] [address] [address] [address] Nettles ChangEpithelial cells LM Ql (Urine sed)MANYAbnormalNONE SEEN /RAREThe [facility] HospitalComment on above:Performed By: #### PREGU, ERUR, UMICRO #### [facility] [address] [address] [address] Tho Goodwin SEENNormalNONE SEENLake County Memorial Hospital - WestComment on above:Performed By: #### PREGU, ERUR, UMICRO #### [facility] [address] [address] [address] Tho BradleyDmintHBA6-9Wufaiusb3-6Ujm [facility] HospitalComment on above:Performed By: #### PREGU, ERUR, UMICRO #### [facility] [address] [address] [address] Tho ROSASNormalROXANN SEENLake County Memorial Hospital - WestComment on above: Performed By: #### PREGU, ERUR, UMICRO #### [facility] [address] [address] [address] Tho HardyAMYLASEon 10-73-7465Zcfxqyc [Catalytic activity/Vol]27 U/LNormal 25-115The [facility] HospitalComment on above:Performed By: #### PREGU, ERUR, UMICRO #### [facility] [address] [address] [address] Tho Victor JEAN 3-6on 35-09-2933HG [Catalytic activity/Vol]53 U/L Yepxnk15-611Fgk [facility] HospitalComment on above:Performed By: #### CMREP #### [facility] [address] [place] [address] Dr. Tho Tan.MB [Mass/Vol]0.79 ng/mLNormal<=3.60The [facility] Comment on above:Performed By: #### CMREP #### [facility] [address] [place] [address] Dr. Tho TamayoTROP4.6 pg/mLNormal4.0-51.3The [facility] HospitalComment on above:Result Comment: CUT-OFF POINTS HAVE BEEN ESTABLISHED BASED ON THE FOURTH UNIVERSAL DEFINITIONS OF MYOCARDIAL INFARCTION. THE UPPER REFERENCE LIMIT (URL) OF TROPONIN, DEFINED THE 99TH PERCENTILE OF cTnI DISTRIBUTION IN A REFERENCE POPULATION, HAS BEEN CONFIRMED THE DECISION THRESHOLD FOR NM DIAGNOSIS.Performed By: #### CMREP #### [facility] [address] [place] [address] Dr. Tho PENA ADMITon [id number] [Catalytic activity/Vol]68 U/L Rexcjq79-980Yna [facility] HospitalComment on above:Performed By: #### RICHARDSON PATEL UMICRO #### [facility] [address] [place] [address] Dr. Tho Tan.MB [Mass/Vol]1.11 ng/mLNormal<=3.60The [facility] Comment on above:Performed By: #### RICHARDSON PATEL UMICRO #### [facility] [address] [place] [address] Dr. Tho TamayoTROP4.3 pg/mLNormal4.0-51.3The [facility] HospitalComment on above:Result Comment: CUT-OFF POINTS HAVE BEEN ESTABLISHED BASED ON THE FOURTH UNIVERSAL DEFINITIONS OF MYOCARDIAL INFARCTION. THE UPPER REFERENCE LIMIT (URL) OF TROPONIN, DEFINED THE 99TH PERCENTILE OF cTnI DISTRIBUTION IN A REFERENCE POPULATION, HAS BEEN CONFIRMED THE DECISION THRESHOLD FOR NM DIAGNOSIS.Performed By: #### RICHARDSON PATEL UMICRO #### [facility] [address] [place] [address] Dr. Tho HardyMYO29 ng/mLNormal9-82The [facility] HospitalComment on above: Performed By: #### RICHARDSON PATEL UMICRO #### [facility] [address] [place] [address] Dr. Tho HardyCBLaila AUTO DIFFon [id number] #0.0 103/ulNormal0.0-0.1The [facility] on above:Performed By: #### RICHARDSON PATEL UMICRO #### [facility] [address] [place] [address] Dr. Tho HardyBasophils/100 WBC (Bld)0.4 %Normal0.2-2.0[facility] Comment on above:Performed By: #### PREGU, ERUR, UMICRO #### [facility] [address] [address] [address] Tho Saeed #0.2 103/ulNormal0.0-0.7The [facility] HospitalComment on above: Performed By: #### PREGU, ERUR, UMICRO #### [facility] [address] [address] [address] Tho Rosalesosinophils/100 WBC (Bld)1.7 %Normal0.9-7.0[facility] Comment on above:Performed By: #### PREGU, ERUR, UMICRO #### [facility] [address] [place] [address] Dr. Tho Rosalesrythrocyte distribution width (RBC) [Ratio]12.9 %Edleil52.0-15.0 The [facility] HospitalComment on above:Performed By: #### PREGU, ERUR, UMICRO #### [facility] [address] [place] [address] Dr. Tho HardyHematocrit (Bld) [Volume fraction]43.2 %Qgoaeq44.0-48.0The [facility] HospitalComment on above:Performed By: #### PREGU, ERUR, UMICRO #### [facility] [address] [place] [address] Dr. Tho HardyHemoglobin (Bld) [Mass/Vol]14.4 g/bTZiciza10.0-16.0The [facility] HospitalComment on above:Performed By: #### PREGU, ERUR, UMICRO #### [facility] [address] [place] [address] Dr. Tho Rios #0.05 10e3/ulCritically high0.00-0.03The [facility] Comment on above:Performed By: #### PREGU, ERUR, UMICRO #### [facility] [address] [place] [address] Dr. Tho Rios %0.4 %Normal0.0-0.5The [facility] HospitalComment on above: Performed By: #### PREGU, ERUR, UMICRO #### [facility] [address] [place] [address] Dr. Tho Robles #2.4 103/ulNormal1.2-3.8The [facility] HospitalComment on above:Performed By: #### PREGU, ERUR, UMICRO #### [facility] [address] [place] [address] Dr. Tho Benzhocytes/100 WBC (Bld)21.3 %Qhxiwi58.5-60.0The [facility] HospitalComment on above:Performed By: #### PREGU, ERUR, UMICRO #### [facility] [address] [place] [address] Dr. Tho Medina DIFF REQNONormalThe [facility] HospitalComment on above: Performed By: #### PREGU, ERUR, UMICRO #### [facility] [address] [place] [address] Dr. Tho Sung (RBC) [Entitic mass]29.9 nnMisrqy03.7-34.0The [facility] HospitalComment on above:Performed By: #### PREGU, ERUR, UMICRO #### [facility] [address] [place] [address] Dr. Tho Sung (RBC) [Mass/Vol]33.3 g/iJRvnpbz58.9-35.2The [facility] HospitalComment on above:Performed By: #### PREGU, ERUR, UMICRO #### [facility] [address] [place] [address] Dr. Tho Sung (RBC) [Entitic vol]89.6 sQRnzdae27.0-99.0The [facility] HospitalComment on above:Performed By: #### PREGU, ERUR, UMICRO #### [facility] [address] [place] [address] Dr. Tho Camp #0.6 103/ulNormal0.3-0.8The [facility] HospitalComment on above:Performed By: #### PREGU, ERUR, UMICRO #### [facility] [address] [place] [address] Dr. Tho Espinalocytes/100 WBC (Bld)5.5 %Normal1.7-12.0The [facility] Comment on above:Performed By: #### PREGU, ERUR, UMICRO #### [facility] [address] [place] [address] Dr. Tho MichaudUT #8.0 103/ulCritically high1.4-6.5The [facility] Comment on above:Performed By: #### PREGU, ERUR, UMICRO #### [facility] [address] [place] [address] Dr. Tho Michaudutrophils/100 WBC (Bld)70.7 %Puwnyz68.0-75.0The [facility] HospitalComment on above:Performed By: #### PREGU, ERUR, UMICRO #### [facility] [address] [place] [address] Dr. Tho HardyPlatelet mean volume (Bld) [Entitic vol]10.7 fLNormal9.5-13.5The [facility] HospitalComment on above:Performed By: #### PREGU, ERUR, UMICRO #### [facility] [address] [place] [address] Dr. Tho HardyPLT220 103/hcImrrtc666-016Ltm [facility] HospitalComment on above: Performed By: #### PREGU, ERUR, UMICRO #### [facility] [address] [place] [address] Dr. Tho HardyRBC4.82 106/ulNormal4.20-5.40The [facility] HospitalComment on above:Performed By: #### PREGU, ERUR, UMICRO #### [facility] [address] [place] [address] Dr. Tho HardyWBC11.3 103/ulCritically high4.0-11.0The [facility] HospitalComment on above:Performed By: #### PREGU, ERUR, UMICRO #### [facility] [address] [address] [address] Tho HardyCT ABD/PELV W CONon [id number] ABD/PELV W CONEXAMINATION: CT ABD/PELV W CON [...] Electronically authenticated by: ISH HECTOR Date: 2022-08-04 05:28[facility] HospitalLACTATE/LACTIC ACIDon [id number] [Moles/Vol]1.0 mmol/L Normal0.4-1.9The [facility] HospitalComment on above:Performed By: #### LACT #### [facility] [address] [address] [address] Tho HardyLactate [Moles/Vol]1.2 mmol/LNormal0.4-1.9The [facility] Comment on above:Performed By: #### LACT #### [facility] [address] [place], [place] [address] Dr. Tho HardyLIPASEon 28-46-1084Lwsohv [Catalytic activity/Vol]72.0 U/L Critically low73.0-393.0The [facility] Hospitalment on above:Performed By: #### PREGU, ERUR, UMICRO #### [facility] [address] [place] [address] Dr. Tho Sanon 14(COMP METB)on 17-55-0016Twwitxk [Mass/Vol]3.7 g/dLNormal 3.4-5.0The [facility] HospitalComment on above:Performed By: #### PREGU, ERUR, UMICRO #### [facility] [address] [place] [address] Dr. Tho HardyAlbumin/Globulin [Mass ratio]0.9 {ratio}NormalThe [facility] HospitalComment on above:Performed By: #### PREGU, ERUR, UMICRO #### [facility] [address] [place] [address] Dr. Tho Judge [Catalytic activity/Vol]83 U/XItmnib32-505Jch [facility] on above:Performed By: #### PREGU, ERUR, UMICRO #### [facility] [address] [place] [address] Dr. Tho Barber [Catalytic activity/Vol]36 U/UZhqbxu80-00[facility] on above:Performed By: #### PREGU, ERUR, UMICRO #### [facility] [address] [place] [address] Dr. Tho Hidalgo gap [Moles/Vol]9.7 mmol/LNormalThe [facility] Hospitalment on above:Performed By: #### PREGU, ERUR, UMICRO #### [facility] [address] [place] [address] Dr. Tho HardyAST [Catalytic activity/Vol]19 U/BCwvnds35-99Nwj [facility] on above:Performed By: #### PREGU, ERUR, UMICRO #### [facility] [address] [place] [address] Dr. Tho HardyBilirubin [Mass/Vol]0.3 mg/dLNormal0.2-1.0The [facility] Comment on above:Performed By: #### PREGU, ERUR, UMICRO #### [facility] [address] [address] [address] Tho HardyCalcium [Mass/Vol]8.9 mg/dLNormal8.5-10.1The [facility] Comment on above:Performed By: #### PREGU, ERUR, UMICRO #### [facility] [address] [place] [address] Dr. Tho HardyChloride [Moles/Vol]103 mmol/LJtxlid07-549Gst [facility] Comment on above:Performed By: #### PREGU, ERUR, UMICRO #### [facility] [address] [place] [address] Dr. Tho HardyCO2 [Moles/Vol]27.8 mmol/GUphtha13.0-32.0[facility] Comment on above:Performed By: #### PREGU, ERUR, UMICRO #### [facility] [address] [place] [address] Dr. Tho HardyCreatinine [Mass/Vol]0.62 mg/dLNormal0.55-1.02The [facility] HospitalComment on above:Performed By: #### PREGU, ERUR, UMICRO #### [facility] [address] [place] [address] Dr. Tho RosalesGFR-AF PRYDEINIG>60Normal>=60The [facility] HospitalComment on above:Performed By: #### PREGU, ERUR, UMICRO #### [facility] [address] [place] [address] Dr. Tho RosalesGFR-NON AF PRYDEINIG>60Normal>=60[facility] WestComment on above:Performed By: #### PREGU, ERUR, UMICRO #### [facility] [address] [place] [address] Dr. Tho HardyGlobulin (S) [Mass/Vol]3.9 g/dLNormalThe [facility] HospitalComment on above:Performed By: #### PREGU, ERUR, UMICRO #### [facility] [address] [address] [address] Tho HardyGlucose [Mass/Vol]98 mg/hLSxucyq31-730VyxLake [facility] Comment on above:Performed By: #### PREGU, ERUR, UMICRO #### [facility] [address] [address] [address] Tho HardyPotassium [Moles/Vol]3.5 mmol/LNormal3.5-5.1The [facility] Comment on above:Performed By: #### PREGU, ERUR, UMICRO #### [facility] [address] [address] [address] Tho HardyProtein [Mass/Vol]7.6 g/dLNormal6.4-8.2[facility] Comment on above:Performed By: #### PREGU, ERUR, UMICRO #### [facility] [address] [place] [address] Dr. Tho HardySodium [Moles/Vol]137 mmol/HYathoe159-129MmqLake [facility] Comment on above:Performed By: #### PREGU, ERUR, UMICRO #### [facility] [address] [place] [address] Dr. Tho HardyUrea nitrogen [Mass/Vol]18.0 mg/dLNormal7.0-18.0[facility] WestComment on above:Performed By: #### PREGU, ERUR, UMICRO #### [facility] [address] [place] [address] Dr. Tho HardyUrea nitrogen/Creatinine [Mass ratio]29.0 mg/mgNormalThe [facility] HospitalComment on above:Performed By: #### PREGU, ERUR, UMICRO #### [facility] [address] [place] [address] Dr. Tho HardyXR CHEST 1 Von [id number] CHEST 1 VXR CHEST 1 V 08/04/2022 [...] Electronically authenticated by: JOLENE TIMMONS Date: 2022-08-04 02:02[facility] HospitalD-DIMERon [id number]-DIMER0.23 mg/L FEUNormal<=0.59[facility] - WestComment on above:Performed By: #### RICHARDSON PATEL UMICRO #### [facility] [address] [address] [address] Tho Lewis-DIMER COMMENTSSEE BELOWMercy Health St. Elizabeth Boardman HospitalComment on above:Result Comment: Increases in D-Dimer [...] Performed By: #### RICHARDSON PATEL UMICRO #### [facility] [address] [address] [address] Tho HardyXR HIP LT 2 3V W PELVISon [id number] HIP LT 2 3V W PELVISEXAM: XR [...] Electronically authenticated by: JOSIE KING Date: 2022-07-08 23:54NoBer[facility] HospitalUS PELVIS TRANSVAGon [id number] PELVIS TRANSVAGEXAM: Pelvic ultrasound HISTORY: Cyst of [...] Electronically authenticated by: AYAD BIGGS Date: 2022-05-01 10:25[facility] [id number] Visit ([facility]) CONNIE SALCIDO ([id number]) 1995 F Date Time Provider Department 04/26/22 1:30 PM CARLOS TARIQ [facility] During your visit today, we recorded the following information about you: Pulse Blood pressure Weight Height 104/minute 140/84 138.3 kg 1.524 m Last Period 04/19/22 Jess Suero MA 04/26/2022 1:37 PM Signed What is the reason for your visit today? [employer] hernia Who is your referring physician? self [...] Carlos Tariq MD Referring Provider: NOAH WALTON [[id number]] Allergies As of Date: 04/26/2022 Noted Allergy [...] is the reason for your visit today? [employer] hernia Who is your referring physician? 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 NO Have you had unintentional weight loss of 15 lbs/7 Kg in the last 3-6 months? NO Bowels: regular Wound: none Temperature: No Drains: No Encounter Status:Closed by CARLOS TARIQ on [facility]/26/22[facility]PELV W CONon [id number] ABD/PELV W CONStudy: CT ABD/PELV W CON [...] Electronically authenticated by: YENI PARNELL Date: 2022-04-12 00:02[facility] AUTO DIFFon [id number] #0.0 103/ulNormal0.0-0.1[facility] WestComment on above:Performed By: #### RICHARDSON PATEL UMICRO #### [facility] [address] [address] [address] Tho HardyBasophils/100 WBC (Bld)0.2 %Normal0.2-2.0[facility] Comment on above:Performed By: #### RICHARDSON PATEL UMICRO #### [facility] [address] [address] [address] Tho Saeed #0.1 103/ulNormal0.0-0.7The [facility] HospitalComment on above: Performed By: #### RICHARDSON PATEL UMICRO #### [facility] [address] [address] [address] Tho Rosalesosinophils/100 WBC (Bld)0.7 %Critically low0.9-7.0The [facility] HospitalComment on above:Performed By: #### JOHNATHANURICHARDSON UMICRO #### [facility] [address] [address] [address] Tho Rosalesrythrocyte distribution width (RBC) [Ratio]13.4 %Wnfhkv57.0-15.0 The [facility] HospitalComment on above:Performed By: #### PREGU, ERUR, UMICRO #### [facility] [address] [place] [address] Dr. Tho HardyHematocrit (Bld) [Volume fraction]39.9 %Mmiynh71.0-48.0The [facility] HospitalComment on above:Performed By: #### PREGU, ERUR, UMICRO #### [facility] [address] [place] [address] Dr. Tho HardyHemoglobin (Bld) [Mass/Vol]13.3 g/fYSzkhza29.0-16.0The [facility] HospitalComment on above:Performed By: #### PREGU ERUR, UMICRO #### [facility] [address] [place] [address] Dr. Tho Rios #0.04 10e3/ulCritically high0.00-0.03The [facility] Comment on above:Performed By: #### PREGUKRISTIANR, UMICRO #### [facility] [address] [place] [address] Dr. Tho Rios %0.4 %Normal0.0-0.5The [facility] HospitalComment on above: Performed By: #### PREGU, ERUR, UMICRO #### [facility] [address] [place] [address] Dr. Tho Robles #2.8 103/ulNormal1.2-3.8The [facility] HospitalComment on above:Performed By: #### PREGU, ERUR, UMICRO #### [facility] [address] [place] [address] Dr. Tho Hallmphocytes/100 WBC (Bld)31.1 %Zlcaoc88.5-60.0The [facility] HospitalComment on above:Performed By: #### PREGU, ERUR, UMICRO #### [facility] [address] [address] [address] Tho Medina DIFF REQNONormalThe [facility] HospitalComment on above: Performed By: #### PREGU, ERUR, UMICRO #### [facility] [address] [place] [address] Dr. Tho HardyNUVANCE HEALTH (RBC) [Entitic mass]29.8 ryOnevyc04.7-34.0The [facility] HospitalComment on above:Performed By: #### PREGU, ERUR, UMICRO #### [facility] [address] [place] [address] Dr. Tho HardyNYU LANG[facility] (RBC) [Mass/Vol]33.3 g/wPKzuxis85.9-35.2The [facility] HospitalComment on above:Performed By: #### PREGU, ERUR, UMICRO #### [facility] [address] [place] [address] Dr. Tho Sung (RBC) [Entitic vol]89.5 jTMcaker94.0-99.0The [facility] HospitalComment on above:Performed By: #### PREGU, ERUR, UMICRO #### [facility] [address] [place] [address] Dr. Tho Camp #0.7 103/ulNormal0.3-0.8The [facility] HospitalComment on above:Performed By: #### PREGU, ERUR, UMICRO #### [facility] [address] [place] [address] Dr. Tho Espinalocytes/100 WBC (Bld)7.3 %Normal1.7-12.0The [facility] Comment on above:Performed By: #### PREGU, ERUR, UMICRO #### [facility] [address] [place] [address] Dr. Tho Swanson #5.4 103/ulNormal1.4-6.5The [facility] HospitalComment on above:Performed By: #### PREGU, ERUR, UMICRO #### [facility] [address] [place] [address] Dr. Tho Michaudutrophils/100 WBC (Bld)60.3 %Owqksp31.0-75.0The [facility] HospitalComment on above:Performed By: #### PREGU, ERUR, UMICRO #### [facility] [address] [place] [address] Dr. Tho De Los Santos mean volume (Bld) [Entitic vol]9.1 fLCritically low 9.5-13.5The [facility] HospitalComment on above:Performed By: #### PREGU, ERUR, UMICRO #### [facility] [address] [place] [address] Dr. Tho HardyPLT249 103/boBrhooj635-662Suh [facility] HospitalCommemorial healthcare on above: Performed By: #### PREGU, ERUR, UMICRO #### [facility] [address] [place] [address] Dr. Tho HardyRBC4.46 106/ulNormal4.20-5.40The [facility] HospitalCommemorial healthcare on above:Performed By: #### PREGU, ERUR, UMICRO #### [facility] [address] [place] [address] Dr. Tho DoanBC9.0 103/ulNormal4.0-11.0The [facility] HospitalCommemorial healthcare on above: Performed By: #### PREGU, ERUR, UMICRO #### [facility] [address] [place] [address] Dr. Tho Cardoso URINE PROFILEon 74-43-1968Qgggzyhfv Ql (U)NegativeNormal NEGATIVEThe [facility] HospitalComment on above:Performed By: #### BMP #### [facility] [address] [place] [address] Dr. Tho Bronson (U)CLEARNormalCLEARThe [facility] HospitalComment on above: Performed By: #### BMP #### [facility] [address] [place] [address] Dr. Tho Hernandes (U)YELLOWNormalYELLOWThe [facility] HospitalComment on above: Performed By: #### BMP #### [facility] [address] [address] [address] Tho Hatch micrscopic examination will be performed if indicated. NormalThe [facility] HospitalComment on above:Performed By: #### BMP #### [facility] [address] [address] [address] Tho HardyGlucose Ql (U)NegativeNormalNEGATIVELake County Memorial Hospital - WestComment on above:Performed By: #### BMP #### [facility] [address] [address] [address] Tho HardyHemoglobin Ql (U)MODERATEAbnormalNEGATIVELake County Memorial Hospital [facility] Comment on above:Performed By: #### BMP #### [facility] [address] [place] [address] Dr. Tho HardyKetones Ql (U)NegativeNormalNEGATIVELake County Memorial Hospital - WestComment on above:Performed By: #### BMP #### [facility] [address] [place] [address] Dr. Tho HardyLEUKOCYTESNegativeNormalNEGATIVELake County Memorial Hospital - WestComment on above:Performed By: #### BMP #### [facility] [address] [place] [address] Dr. Tho HardyNitrite Ql (U)NegativeNormalNEGATIVELake County Memorial Hospital - WestComment on above:Performed By: #### BMP #### [facility] [address] [address] [address] Tho HardypH (U)5.5 [pH]Normal5-9[facility] - WestComment on above: Performed By: #### BMP #### [facility] [address] [place] [address] Dr. Tho HardySPEC GRAVITY>=1.645Gnauqfpr8.005-<=1.025[facility] Comment on above:Performed By: #### BMP #### [facility] [address] [place] [address] Dr. Tho HardyUA PROTEINNegativeNormalNEGATIVE/ TRACEThe [facility] Comment on above:Performed By: #### BMP #### [facility] [address] [place] [address] Dr. Tho Garcia MICRO INDINDICATEDNormalThe [facility] HospitalComment on above: Performed By: #### BMP #### [facility] [address] [place] [address] Dr. Tho HardyUrobilinogen Qn (U)0.2 {Roland'U}/dLNormal0.2 - 1.0The [facility] HospitalComment on above:Performed By: #### BMP #### [facility] [address] [place] [address] Dr. Tho HardyLIPASEon 97-91-9113Jpvmaw [Catalytic activity/Vol]88.0 U/LNormal 73.0-393.0The [facility] HospitalComment on above:Performed By: #### LACT #### [facility] [address] [place] [address] Dr. Tho Najera HCG QUALon [id number], QUALNegativeNormalNEGATIVE The [facility] HospitalComment on above:Performed By: #### PREG #### [facility] [address] [place] [address] Dr. hTo Sanon 14(COMP METB)on 02-62-9981Rldlqhc [Mass/Vol]3.5 g/dLNormal 3.4-5.0The [facility] HospitalComment on above:Performed By: #### LACT #### [facility] [address] [place] [address] Dr. Tho HardyAlbumin/Globulin [Mass ratio]0.9 {ratio}NormalThe [facility] HospitalComment on above:Performed By: #### LACT #### [facility] [address] [place] [address] Dr. Tho BeltránP [Catalytic activity/Vol]73 U/GSzuoof62-848Qub [facility] HospitalComment on above:Performed By: #### LACT #### [facility] [address] [place] [address] Dr. Tho BeltránT [Catalytic activity/Vol]29 U/SPdzvtr77-70Ppw [facility] [facility] HospitalComment on above:Performed By: #### LACT #### [facility] [address] [place] [address] Dr. Tho Garciaon gap [Moles/Vol]10.4 mmol/LNormalThe [facility] Comment on above:Performed By: #### LACT #### [facility] [address] [place] [address] Dr. Tho HardyAST [Catalytic activity/Vol]15 U/SThycmd01-64Nyp [facility] HospitalComment on above:Performed By: #### LACT #### [facility] [address] [place] [address] Dr. Tho HardyBilirubin [Mass/Vol]0.4 mg/dLNormal0.2-1.0The [facility] Comment on above:Performed By: #### LACT #### [facility] [address] [place] [address] Dr. Tho HardyCalcium [Mass/Vol]8.4 mg/dLCritically low8.5-10.1The [facility] HospitalComment on above:Performed By: #### LACT #### [facility] [address] [place] [address] Dr. Tho HardyChloride [Moles/Vol]103 mmol/CGlkqqm65-116Rep [facility] Comment on above:Performed By: #### LACT #### [facility] [address] [place] [address] Dr. Tho HardyCO2 [Moles/Vol]27.8 mmol/SWdwpob01.0-32.0The [facility] Comment on above:Performed By: #### LACT #### [facility] [address] [place] [address] Dr. Tho HardyCreatinine [Mass/Vol]0.75 mg/dLNormal0.55-1.02The [facility] HospitalComment on above:Performed By: #### LACT #### [facility] [address] [place] [address] Dr. Yilan ChangEGFR-AF PRYDEINIG>60Normal>=60The [facility] HospitalComment on above:Performed By: #### LACT #### [facility] [address] [place] [address] Dr. Tho RosalesGFR-NON AF PRYDEINIG>60Normal>=60The [facility] HospitalComment on above:Performed By: #### LACT #### [facility] [address] [place] [address] Dr. Tho HardyGlobulin (S) [Mass/Vol]3.7 g/dLNormAdams County HospitalComment on above:Performed By: #### LACT #### [facility] [address] [place] [address] Dr. Tho HardyGlucose [Mass/Vol]88 mg/zUJguuar53-495UarLake County [facility] Comment on above:Performed By: #### LACT #### [facility] [address] [place] [address] Dr. Tho HardyPotassium [Moles/Vol]3.2 mmol/LCritically low3.5-5.1The [facility] HospitalComment on above:Performed By: #### LACT #### [facility] [address] [place] [address] Dr. Tho HardyProtein [Mass/Vol]7.2 g/dLNormal6.4-8.2[facility] Comment on above:Performed By: #### LACT #### [facility] [address] [place] [address] Dr. Tho HardySodium [Moles/Vol]138 mmol/QHniera040-366UpyLake County Memorial Hospital - [facility] Comment on above:Performed By: #### LACT #### [facility] [address] [place] [address] Dr. Tho HardyUrea nitrogen [Mass/Vol]13.0 mg/dLNormal7.0-18.0The [facility] HospitalComment on above:Performed By: #### LACT #### [facility] [address] [place] [address] Dr. Tho HardyUrea nitrogen/Creatinine [Mass ratio]17.3 mg/mgNormAtrium Health Clevelandevue HospitalComment on above:Performed By: #### LACT #### [facility] [address] [place] [address] Dr. Tho HardyPROTIMEon 71-84-1144JRN Coag (PPP) [Relative time]0.97 {INR} NormalLake County Memorial Hospital - WestComment on above:Performed By: #### PREGRICHARDSON Kramer UMICRO #### [facility] [address] [place] [address] Dr. Tho Knight GUIDELINESSEE BELOWMercy Health St. Elizabeth Boardman HospitalComment on above:Result Comment: DESIRED INR: 2.0 - 3.0 CONDITIONS NOT LISTED BELOW 2.5 - 3.5 FOR PROSTHETIC HEART VALVE REPLACEMENT 2.5 - 3.5 RECURRENT THROMBOSIS Performed By: #### KRISTIAN PATELR UMICRO #### [facility] [address] [place] [address] Dr. Tho Roman Coag (PPP) [Time]10.5 sNormal9.0-11.6ThSamaritan Hospital Comment on above:Performed By: #### RICHARDSON PATEL UMICRO #### [facility] [address] [place] [address] Dr. Tho Domínguez 44-54-7454yARM Coag (Bld) [Time]27.8 cWvilma55.3-36.2[facility] - WestComment on above:Performed By: #### RICHARDSON PATEL UMICRO #### [facility] [address] [place] [address] Dr. Tho Motley MICROSCOPIC ONLYon 83-54-9093NJTBNZSLWEKD SEENNormalNONE SEENLake County Memorial Hospital - WestComment on above:Performed By: #### BMP #### [facility] [address] [place] [address] Dr. Tho Causey identified Cx Nom (U)NOT INDICATEDNoBerger HospitalComment on above:Performed By: #### BMP #### [facility] [address] [place] [address] Dr. Yilan ChangCASTNONE SEENNormalNONE SEENLake County Memorial Hospital - WestCommemorial healthcare on above:Performed By: #### BMP #### [facility] [address] [address] [address] Tho HardyCrystals LM Nom (Urine sed)NONE SEENNormalNONE SEENLake County Memorial Hospital - WestCommemorial healthcare on above:Performed By: #### BMP #### [facility] [address] [address] [address] Nettles ChangEpithelial cells LM Ql (Urine sed)NONE SEENNormalNONE SEEN /RARE The [facility] HospitalCommemorial healthcare on above:Performed By: #### BMP #### [facility] [address] [place] [address] Dr. Tho LandaCOUSROXANN SEENNormalNONE SEENAdena Pike Medical Center on above:Performed By: #### BMP #### [facility] [address] [place] [address] Dr. Tho HardyVeevqUUX1-8Ofxtjofp2-2Ind [facility] HospitalCommemorial healthcare on above:Performed By: #### BMP #### [facility] [address] [place] [address] Dr. Tho HardyWBCROXANN SEENNormalNONE SEENLake County Memorial Hospital - WestCommemorial healthcare on above: Performed By: #### BMP #### [facility] [address] [place] [address] Dr. Tho HardyXR ANKLE LT MIN 3 Von 13-23-5025KN ANKLE LT MIN 3 VEXAM: XR ANKLE LT MIN 3 V HISTORY: Left ankle pain COMPARISON: None. TECHNIQUE: 3 views FINDINGS: No osseous lesion, fracture, dislocation or subluxation. Joint spaces are normal. No visualized effusion. No visualized soft tissue edema. IMPRESSION: Normal x-rays Electronically authenticated by: AYAD CORTEZ Date: 2022-02-06 19:06[facility] Vital Signs Date TimeVital SignValuePerforming JonjdjrteRegoboyf65-26-4482 15:05-0400Body mass index (BMI) [Ratio]56.14 kg/s0Vpemj Isabelle DO Work Phone: [phone] [place], [place] [address]Kpxkfucuhm34-73-7612 15:05-0400Body .77 kgCorey Isabelle DO Work Phone: [facility] HospitalArqiwzfqiv53-68-9567 15:05-0400Diastolic blood mm[Hg]Noah Isabelle DO Work Phone: [phone] [place], [place] [address]Rroglwwwpm57-23-9915 15:05-0400Systolic blood hzeybaip679 mm[Hg]Noah Isabelle DO Work Phone: [phone] [place], [place] [address]Xthuftaxnz17-70-9406 15:10-0500Body mass index (BMI) [Ratio]53.31 kg/e8Chgyd Isabelle DO Work Phone: [phone]01-06-2025 15:10-0500Body rradbi288.97 kgCorey Isabelle DO Work Phone: [phone] [place], [place] [address]Xlgtarldzl76-76-5658 15:10-0500Diastolic blood exccbxjo70 mm[Hg]Noah Isabelle DO Work Phone: [phone] [place], [place] [address]Rdjqchjuig42-44-2111 15:10-0500Systolic blood mm[Hg]Noah Isabelle DO Work Phone: [phone] [place], [place] [address]Adtwfvfjyr32-05-2276 14:03-0400Body .81 kgRosa Maria Israel MD Work Phone: [facility]09-08-2022 12:56-0400Body .[address] Work Phone: [facility]09-08-2022 12:56-0400Body .81 kgElyse Dirk [place] Work Phone: [facility] Encounters Encounter DateEncounter TypeCare ProviderFacilityStart: 06-29-2025 End: 21-09-0245aypfgyphhjZVUPCMQNorwalk Memorial Hospitaltart: 05-11-2025 End: 19-17-8396ygxivpwvpxPDOILRCNorwalk Memorial Hospitaltart: 05-06-2025 End: 83-84-4378Uionceqnx department patient visitDOUGLAS M [facility]ertart: 04-29-2025 End: 89-86-5656nmslxxcetnWVPEQISNorwalk Memorial Hospitaltart: 49-29-0843tskebnoiziDFYGYBN M [facility]ertart: 03-30-2025 End: 61-62-9560axlpbfzlckTVWGSOWNorwalk Memorial Hospitaltart: 03-30-2025 End: 70-80-3371cqultloogoXZWMROANorwalk Memorial Hospitaltart: 03-25-2025 End: 18-69-4589jftltknjcxDFHPYCZNorwalk Memorial Hospitaltart: 12-21-2024 End: 94-73-3596Vvdsynu encounter procedureCorey Isabelle DO Work Phone: [facility] Work Phone: Start: 12-21-2024 End: 98-82-8360Kxrqtwtm preventive med est patient 18-39 yrsCorey Isabelle DO Work Phone: [facility] BCP OBComment on above:Well woman exam with routine gynecological exam; Sweating abnormality; Status post hysterectomy; Vaginal dryness; BV (bacterial vaginosis); Yeast infection of the vaginaStart: 12-21-2024 End: 13-72-6373midiioqqcvYPZGO FAZIONot AvailableStart: 12-21-2024 End: 50-36-9010Elsurp flowsheetCorey Isabelle DO Work Phone: [facility] BCP OBStart: 12-21-2024 End: 99-47-8279Zlseae flowsheetCorey Isabelle DO Work Phone: [facility] BCP OBStart: 12-21-2024 End: 54-85-5071Lbmpsauxs Result EncounterCorey Isabelle DO Work Phone: [facility] External Department UnsolicitedStart: 09-13-2024 End: 95-87-3242Ggvflg outpatient visit 15 minutesCorey Isabelle DO Work Phone: [facility] BCP OBComment on above:Sweating abnormality; Status post hysterectomy; Vaginal drynessStart: 09-13-2024 End: 69-43-8482swfvanmzpiLNYDC FAZIONot AvailableStart: 09-13-2024 End: 38-32-2702Ajekvm flowsheetCorey Isabelle DO Work Phone: NORJ BCP OBStart: 09-13-2024 End: 84-93-7225Anrodt flowsheetCorey Isabelle DO Work Phone: [facility] BCP OBStart: 01-06-2024 End: 69-13-6574jzpttzvrdjQMYPTAZX E PERRYFacility:EU BellevueStart: 11-11-2023 End: 84-42-9236qmrclmnqevYAXTCQVF E PERRYFacility:EU BellevueStart: 10-14-2023 End: 01-43-8172Ohliiulgs Result EncounterCorey Isabelle DO Work Phone: [facility] External Department UnsolicitedStart: 10-14-2023 End: 50-86-5181Sqhjtqnyw Result EncounterCorey Isabelle DO Work Phone: [facility] External Department UnsolicitedStart: 08-19-2023 End: 53-67-5282ipehuagpgcWgjmpf X OrzechFacility:EU BellevueStart: 12-30-2022 End: 42-93-9635egizbdeoebIZ DONAVON WHITMAN .Facility:L4Bdjsq: 12-17-2022 End: 95-43-3974copymrjzaiUV ONAH WALTON .Facility:H1Gdedi: 11-13-2022 End: 59-36-8923hrfipiadwpIN DOUGLAS HOY .Facility:G6Gqgdw: 77-74-8446bwuesplrmq DR [address] .Facility:C8Vnqet: 2022 End: 3373kwtulinprzJWEKYPPT CULLENFacility:V4Kdcut: 10-14-2022 End: 37-99-3085cqijbryhqhDBFDBZK M MANONFacility:K2Nkmgq: 09-26-2022 End: 52-04-9238kdbuvwwohiWILZMRE M MANONFacility:D4Fqubs: 08-04-2022 End: 96-33-0416ktbldkrwyuWGMUL PARKERFacility:I9Zcxqq: 07-09-2022 End: 10-11-7172zvzvibtyyvRW HERNAN MARKER .Facility:Z9Wtoac: 05-16-2022 End: 20-86-5921Ncqwngf encounter statusRosa Maria Israel MD Work Phone: Endocrinology BMIStart: 05-16-2022 End: 28-77-4267zlgpaqdnveSyjushq A Gorty MD Work Phone: Endocrinology BMIComment on above:Abnormal weight gain (Primary Dx); Preop testing; Morbid obesity with BMI of 50.0-59.9, adult (HCC); HANH (obstructive sleep apnea)Body mass index 50.0-59.9, adult (HCC) (Primary Dx); Dietary counseling and surveillanceStart: 05-16-2022 End: 34-22-9623Owdsstokqhgw consultation with Estrella Israel MD Work Phone: GABRIELA MCCOY FHCStart: 05-01-2022 End: 20-26-4305kjscykpwreDX NOAH ISABELLE .Facility:R2Ldexy: 04-11-2022 End: 21-93-1164jbauphebgaJJ VALERIE HOY .Facility:F3Rkggy: 03-21-2022 End: 14-10-9656itlozlxspjHVYOSAGM CULLENFacility:R2Ahjmy: 03-18-2022 End: 89-39-8806qwroiwqybzWI VALERIE HOY .Facility:Y1Autee: 03-14-2022 End: 06-15-0145dubtgdwyvnXEGK GULATIFacility:H3Wakoy: 02-14-2022 End: 42-52-8933sgcjqwzploUVPTJEOA CULLENFacility:J0Hrsvf: 02-06-2022 End: 88-60-8682qgcfurrkejDX VALERIE HOY .Facility:[address] DateProcedureProcedure DetailPerforming ClinicianStart: 93-52-5847UNC,APTIMA HPV,AGE GDLNCorey Isabelle DO Work Phone: Start: 34-23-3077Jjmbfydecvb observation [Identifier] in Cervix by Cyto stainCorey Isabelle DO Work Phone: Start: 41-84-4901OL PELVIS W/ TRANSVAGINALCorey Isabelle DO Work Phone: Start: 10-31-0187Wqxijjabzpz observation [Identifier] in Cervix by Cyto stainCorey Isabelle DO Work Phone: H/O: hysterectomyStatus post hysterectomyCorey Isabelle DO Work Phone: H/O: hysterectomyStatus post hysterectomyCorey Isabelle DO Work Phone: Plan of Treatment DateCare ActivityDetailAuthorStart: 18-16-7183Symzhlqfo for malignant neoplasm of cervixNOMS HealthcareStart: 12-28-2025 End: 25-04-6566Mveafid encounter procedureNOMS BCP OBStart: 91-94-4980Sgoiejzxk for malignant neoplasm of cervixNOMS HealthcareStart: 04-31-6215Nmracgnfd vaccinationNOMS HealthcareStart: 12-21-2024 End: 21-76-8242Sduuyrg encounter /15/2025 3:00 PM EDT Office Visit [facility] [address] [place] [address] Noah Walton, DO [address] [place] [address] ArrivedNOMS BCP OBComment on above:ArrivedStart: 09-13-2024 End: 24-74-8913Nhfigkt encounter /06/2025 2:50 PM EST Office Visit [facility] [address] [place] [address] Noah Walton, DO [address], [place] [address] ArrivedNOMS BCP OBComment on above:ArrivedStart: 00-36-5272Tetrhilkz vaccinationInfluenza Vaccine (#1)[facility] HealthcareStart: 16-51-2274Fnvrrkkbr for malignant neoplasm of cervixHPV/CotestNOMS Healthcare Start: 05-16-2022 End: 560898-phdfnawdivphas D3 [Mass/volume] in Serum or PlasmaVITAMIN D 25 HYDROXY Lab Routine Abnormal weight gain Preop testing Morbid obesity with BMI of 50.0-59.9, adult (HCC) HANH (obstructive sleep apnea) Expected: 05/16/2022 (Approximate), Expires: 05/14/2023[facility] Work Phone: Comment on above:Expected: 05/16/2022 (Approximate), Expires: 05/14/2023Start: 05-16-2022 End: 83-02-7613LFV panel - Blood by Automated countCBC Lab Routine Abnormal weight gain Preop testing Morbid obesity with BMI of 50.0-59.9, adult (HCC) HANH (obstructive sleep apnea) Expected: 05/16/2022 (Approximate), Expires: 05/14/2023[facility] Work Phone: Comment on above:Expected: 05/16/2022 (Approximate), Expires: 05/14/2023Start: 05-16-2022 End: 50-32-7335Odkpdyexf (Vitamin B12) [Mass/volume] in Serum or PlasmaVITAMIN B12 BLOOD Lab Routine Abnormal weight gain Preop testing Morbid obesity with BMI of 50.0-59.9, adult (HCC) HANH (obstructive sleep apnea) Expected: 05/16/2022 (Approximate), Expires: 05/14/2023[facility] Work Phone: Comment on above:Expected: 05/16/2022 (Approximate), Expires: 05/14/2023Start: 05-16-2022 End: 12-31-2241Lrleszofxsgky metabolic 2000 panel - Serum or PlasmaCOMP METABOLIC PANEL Lab Routine Abnormal weight gain Preop testing Morbid obesity with BMI of 50.0-59.9, adult (HCC) HANH (obstructive sleep apnea) Expected: 05/16/2022 (Approximate), Expires: 05/14/2023[facility] Work Phone: Comment on above:Expected: 05/16/2022 (Approximate), Expires: 05/14/2023Start: 05-16-2022 End: 49-92-5167Cmcvfm [Mass/volume] in Serum or PlasmaFOLATE SERUM Lab Routine Abnormal weight gain Preop testing Morbid obesity with BMI of 50.0-59.9, adult (HCC) HANH (obstructive sleep apnea) Expected: 05/16/2022 (Approximate), Expires: 05/14/2023[facility] Work Phone: Comment on above:Expected: 05/16/2022 (Approximate), Expires: 05/14/2023Start: 05-16-2022 End: 18-19-5178Onhdgmwvzr A1c in BloodHGB A1C Lab Routine Abnormal weight gain Preop testing Morbid obesity with BMI of 50.0-59.9, adult (HCC) HANH (obstructive sleep apnea) Expected: 05/16/2022 (Approximate), Expires: 05/14/2023[facility] Work Phone: Comment on above:Expected: 05/16/2022 (Approximate), Expires: 05/14/2023Start: 05-16-2022 End: 05-76-1540Opci and Iron binding capacity panel - Serum or PlasmaIRON + TIBC Lab Routine Abnormal weight gain Preop testing Morbid obesity with BMI of 50.0- 59.9, adult (HCC) HANH (obstructive sleep apnea) Expected: 05/16/2022 (Approximate), Expires: 05/14/2023[facility] Work Phone: Comment on above:Expected: 05/16/2022 (Approximate), Expires: 05/14/2023Start: 05-16-2022 End: 65-43-4861Venrdyhtzn.intact [Mass/volume] in Serum or PlasmaPTH INTACT BLD Lab Routine Abnormal weight gain Preop testing Morbid obesity with BMI of 50.0-59.9,adult (HCC) HANH (obstructive sleep apnea) Expected: 05/16/2022 (Approximate), Expires: 05/14/2023[facility] Work Phone: Comment on above:Expected: 05/16/2022 (Approximate), Expires: 05/14/2023Start: 05-16-2022 End: 19-85-3573Bzhziutddfn [Units/volume] in Serum or PlasmaTSH BLD Lab Routine Abnormal weight gain Preop testing Morbid obesity with BMI of 50.0-59.9, adult ( HCC) HANH (obstructive sleep apnea) Expected: 05/16/2022 (Approximate), Expires: 3CBl[facility] Work Phone: Comment on above:Expected: 05/16/2022 (Approximate), Expires: 05/14/2023Start: 05-16-2022 End: 11-51-9513MKHNGFE B1 (THIAMINE), WHOLE BLOODVITAMIN B1 (THIAMINE), WHOLE BLOOD Lab Routine Abnormal weight gain Preop testing Morbid obesity with BMI of 50.0-59.9, adult (HCC) HANH (obstructive sleep apnea) Expected: 05/16/2022 (Approximate), Expires: 2CBl[facility] Work Phone: Comment on above:Expected: 05/16/2022 (Approximate), Expires: 07/16/2022tart: 50-78-6637Snkvwtzji vaccinationINFLUENZA (#1)[facility]: 86-84-0014TSRMN-19 VACCINE (3 - Booster for Pfizer series)COVID-19 VACCINE (3 - Booster for Pfizer series)[facility]: 04-76-1696NOO TESTINGPAP TESTINGTriHealthtart: 71-04-4248Honff microalbumin profile DTAP,TDAP,TD (1 - Tdap)[facility]: 96-36-8211YZIDZDFTE C SCREENING HEPATITIS C SCREENINGTriHealthtart: 00-80-8616FJL SCREENINGHIV SCREENING [facility]: 90-47-9704Jqvhe depression screening assessmentDEPRESSION SCREENINGTriHealthtart: 88-39-4928AGUPWMFNK B (1 of 3 - 3-dose series) HEPATITIS B (1 of 3 - 3-dose series)[facility] ShawCytology Cervical or vaginal smear or scraping studyPap Smear Pathology and Cytology Routine Well woman exam with routine gynecological exam Ordered: 12/21/2024[facility] Work Phone: comment on above:Ordered: 12/21/2024 End: 12-59-4295YHI COMPLETEECG COMPLETE ECG Routine Abnormal weight gain Preop testing Morbid obesity with BMI of 50.0-59.9, adult (HCC) HANH (obstructive sleep apnea) 1 Occurrences starting 05/16/2022 until 05/14/2023[facility] Work Phone: Comment on above:1 Occurrences starting 05/16/2022 until 05/14/2023Human papilloma virus DNA [Presence] in Unspecified specimen by Probe with amplificationHPV DNA probe, amplified Microbiology Routine Well woman exam with routine gynecological exam Ordered: 12/21/2024[facility] [employer]Comment on above:Ordered: 12/21/2024 End: 04-76-6252Ymhevwxhyr exam chest 2 viewsXR CHEST 2V FRONTAL/LAT Radiology Routine Abnormal weight gain Preop testing Morbid obesity with BMI of 50.0-59.9, adult (HCC) HANH (obstructive sleep apnea) 1 Occurrences starting 05/16/2022 until 06/13/2023[facility] Work Phone: Comment on above:1 Occurrences starting 05/16/2022 until 06/13/2023[facility] Immunizations Immunization DateImmunizationNotesCare BjgaabpoVzkyofgv16-60-1668rrkbcmwku virus vaccine, unspecified formulationCorey Isabelle DO Work Phone: [facility] Payers DatePayer CategoryPayerPolicy ID2019Medicaid[place] [id number] 2018-Present [phone] [place] [id number] [id number] 2019Medicaid (Managed Care)[employer] Member Subscriber Plan / Payer (Effective 2018-Present) Name: Connie Salcido Relation to Subscriber: Self Name: Connie Salcido Payer ID: Not on file Group ID: Not on file Type: Not on file Address: [address] [id number] 2.840.1.037707.3.57[id number] 2.840.1.432868.3.57[id number] 2.0.1.532776.3.57[id number] 2.0.1.946019.3.57[id number] 2.840.1.375014.3.57[id number] 2.0.1.857314.3.57[id number] 2.0.1.987093.3.57[id number] 2.0.1.247862.3.57[id number] 2.840.1.542226.3.57[id number] 2.0.1.149548.3.57[id number] 2.840.1.609126.3.57[id number] 2.840.1.749883.3.57[id number] 2.16.840.1.877950.3.57[id number] 2.16.840.1.808367.3.57[id number] 2.16.840.1.358875.3.57[id number] 2.16.840.1.616571.3.57[id number] 2.16.840.1.310218.3.57[id number] 2.16.840.1.167815.3.57[id number] 2.16.840.1.663068.3.57[id number] 2.16.840.1.056520.3.57[id number] 2.16.840.1.653204.3.579.[id number] 2.16.840.1.922642.3.579.2.[id number] 2.16840.1.664609.3.57[id number] Social History DateTypeDetailFacilityStart: 04-26-2022 End: 75-18-5291Qtnwtmw smoking status NHISNever smoked tobaccoSelect Medical Cleveland Clinic [facility] Start: 04-26-2022 End: 34-61-0911Byycfms use and exposureSmokeless tobacco non-userTriHealthtart: 67-39-6518Pvx Assigned At BirthNot on [facility] Hospitalt[facility]: 04-14-2022 End: 88-04-7951Xoiyugta to SARS-CoV-2 (event)Not sureTriHealthtart: 05-05-2023 End: 09-93-9060Olbzzoydb beverage intakeEx-drinker (finding)[facility] Healthcare Start: 05-05-2023 End: 04-17-2042Hxcqkdm of Social functionVALLEY VIEW MEDICAL CENTER HealthcareStart: 05-05-2023 End: 26-62-2888Mkocbyi use panelVALLEY VIEW MEDICAL CENTER HealthcareStart: 54-43-7762ScdMwjpobRGHP Healthcare Clinical Notes 02-15-2022 to 06-29-2025 Note Date & TejeEjuaTndsujsa81-24-6999 NoteSubjective Patient ID: Connie Salcido is a [...] the past 36 hours). No follow-ups on file.[facility]09-03-2025 Note Subjective Patient ID: Connie Salcido is [...] the past 36 hours). 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 No orders of the defined types were placed in this encounter. No results found for this or any previous visit (from the past 36 hours). No follow-ups on file. Ion Kinsey, MS3 [facility] [employer] 05/11/25[facility] NotePatient: Connie Salcido Procedure Summary Date: 04/29/25 Room / Location: [facility] OPERATING ROOM 13 / [facility] Operating Room Anesthesia Start: 1231 Anesthesia Stop: [...] were no known notable events for this encounter.[facility]08-22-2025 NoteWriter answered multiple questions regarding self care and activity. Pt verbalized understanding and reminded that a physician is available 31/03 if any farther questions.[facility]08-22-2025 NoteAirway Date/Time: 04/29/2025 12:44 PM Reason: elective Airway not difficult General Information and Staff Patient location during procedure: OR Anesthesiologist: Naldo Zuniga MD Resident/REVENUE INSPECTOR/CAA: Tra Ochoa MD Performed: resident/REVENUE INSPECTOR/CAA Patient Condition Indications for airway management: anesthesia [...] approach: 1 Number of other approaches [facility]: [facility] NotePatient: Connie Salcido Procedure Information Date/Time: 04/29/25 1300 Procedure: ROBOTIC INCISIONAL HERNIA REPAIR WITH MESH Location: [facility] OPERATING ROOM 13 / [facility] Operating Room Surgeons: Delfina Tanner MD Relevant [...] products discussed with patient who. Additional Equipment RequestsHol[facility] – [facility]07-23-2025 Note mraSubjective Patient ID: Connie Salcido is [...] the past 36 hours). No follow-ups on file.[facility]07-14-2025 NoteReceived referral for Ventral Hernia. Called patient to schedule consult appt. Needs Pre-Reg. Images Requested. LMVM to call office back to schedule consult appt.[facility]04-15-2025 History of Present illness Narrative* Avani Calle, POLYSTYRENE MOLDING MACHINE TENDER - 12/21/2024 3:00 PM EDT Reason for [...] nursing note reviewed. Exam conducted with a fish hatchery supervisor present. Vitals: Estimated body mass index is [...] of: Noah Walton DO documented in this encounterMercy McCune-Brooks [id number] History of Present illness Narrative* Shakira Elizabeth [...] nursing note reviewed. Exam conducted with a fish hatchery supervisor present. Vitals: Estimated body mass index is [...] of: Noah Walton DO documented in this encounterMercy McCune-Brooks [id number] Instructions* Patient Instructions* Micaela Cavazos RD - [...] Read Nutrition Guidelines section before next visit. https://[email or web address]/-/scassets/fi les/org/bariatric/guides/bmiguidebook-[email or web address].ashx?la=en Pre-op goal weight: 276 pounds Protein needs: 70 gm per day Nutrition Monitoring & Evaluation: Weight loss of 1-2 pounds per week and adherence to above recommendations Criteria: Patient update and weight check Need for Follow up: 1 month, please call [phone] documented in this encounterSelect [facility] Instructions* Patient Instructions* Rosa Maria Israel MD - 05/16/2022 5:19 PM EDT INSTRUCTIONS: 1) Please contact me (Dr. Israel) if you have not heard about your test results within a few days after you had them done. Thank you: Contact information: [facility]ariatric [facility] Metabolic Clifford M61/Attention: Dr. Israel [address] [place] [address] 2) Please check with your insurance company regarding cost/coverage of any tests ordered prior to having them completed. Colleen Salcido , Thank you for completing your visit today and we welcome you to the surgical program. We are sure that you will still have some additional questions and encourage you to reach out to your care provider via [employer] OR your Patient Navigator. Patient Navigators are [...] free to ask for a hard copy. [email or web address]/-/scassets/files/org/[email or web address]/guides/bmiguideboo k-[email or web address]?la=en Once you complete all of the requirements (testing, consultations, diet, etc) from each provider, please call [phone] and select option #5 to initiate insurance approval. Please note scheduling information It is important to keep track of your scheduled appointments to ensure successful completion of oursurgical program. Any missed appointments can further delay your pre-surgical work-up. [facility] does offer an opt-in option for getting text message appointment reminders. Please follow the link below if you would like to opt into this service. [email or web address]#appoin [email or web address] As part of your surgical work up, [...] You may call your local [facility] to get an appointment. - Lab work- No appointment is needed for this, you may complete at any [facility] Laboratory.These are usually fasting labs, please be sure to fast (only water permitted) for 10-12 hours priorto the test. -Sleep Study- Please call [phone] or [phone] to get this appointment set up. -Sleep Medicine Consult- (Only needed if sleep study confirms sleep apnea) Please call [phone] to schedule an appointment. Any testing that is completed outside of [facility] will need faxed to [phone]. We look forward to working with you on this journey, Rosa Maria Israel MD documented in this encounterSelect [facility]09-08-2022 NoteHNO ID: [id number] Author: Rosa Maria Israel MD Service: ? [...] and diagnosed-she is on a list for mkqy-cencq-jtv sleep study was about [employer]: -single/: -children: yes -occupation: works at [email or web address] -tobacco use: non-smoker -ETOH: 2 per month ALL: See [facility] LABS: IMAGING: PROC: CARDIAC: MEDS: [...] cardiac, valvular or vascular issues *no h/o NM, CAD, CHF, no cp/palpitations Respiratory: Denies any [...] : B)women: LMP?//rash/discharge/pelvic pain/menstrual (more content not included)...[facility]09-08-2022 NoteHNO ID: [id number] Author: Micaela Cavazos RD Service: ? Author Type: Registered Dietitian Type: Progress Notes Filed: 05/17/2022 1:34 PM Note Text: The [facility] Nutrition Therapy: Virtual Consult - Initial Assessment [...] limited to ADL's although she occasionally walks. Baraga body weight: 128 lbs. Excess body weight: 167 lbs. Goal weight pre-op: 276 lbs. Protein needs estimated: 70 (1.2 g protein/kg IBW) Patient meets the National Institutes of Health guidelines for weight loss surgery and has [employer] therefore is required to complete 6 [...] weight: 276 pounds Protein (more content not included)...[facility]09-08-2022 History of Present illness Narrative* Rosa [...] and diagnosed-she is on a list for gnae-bhbtx-vfo sleep study was about [employer]: -single/: -children: yes -occupation: works at [email or web address] -tobacco use: non-smoker -ETOH: 2 per month [...] cardiac, valvular or vascular issues *no h/o NM, CAD, CHF, no cp/palpitations Respiratory: Denies any [...] which included preparing to see the patient, kqnc-hf-krmq patient care, completing clinical documentation, obtaining and/or reviewing separately obtained history, counseling and educating the patient/family/caregiver, ordering medications, jerilyn ts, or procedures, and care coordination (not separately reported). documented in this encounterSelect [facility]09-08-2022 History of Present illness Narrative* Micaela Cavazos, RD - 05/16/2022 12:53 PM EDT The [facility] Nutrition Therapy: Virtual Consult - Initial Assessment [...] limited to ADL's although she occasionally walks. Baraga body weight: 128 lbs. Excess body weight: 167 lbs. Goal weight pre-op: 276 lbs. Protein needs estimated: 70 (1.2 g protein/kg IBW) Patient meets the National Institutes of Health guidelines for weight loss surgery and has [employer] therefore is required to complete 6 [...] Read Nutrition Guidelines section before next visit. https://[email or web address]/-/scassets/fi les/org/bariatric/guides/bmiguidebook-[email or web address]?la=en Pre-op goal weight: 276 pounds Protein needs: 70 gm per day Nutrition Monitoring & Evaluation: Weight loss of 1-2 pounds per week and adherence to above recommendations Criteria: Patient update and weight check Need for Follow up: 1 month, please call [phone] MNT Billing Type: Initial Assess/15 min 2 units Signed by: Micaela Cavazos RD documented in this encounterSelect [facility]08-19-2022 NoteHNO ID: [id number] Author: Carlos Tariq MD Service: ? Author [...] Pt appreciative of the care Carlos Tariq, [facility]07-14-2022 NotePROCEDURE: XR FOOT LT MIN 3 VIEWS COMPARISON: None. HISTORY: Pain in left foot FINDINGS: BONES:No fracture, acute abnormality, or significant arthropathy. SOFT TISSUES:Negative. No visible soft tissue swelling. EFFUSION:None visible. OTHER: Negative. IMPRESSION: No acute abnormality Electronically authenticated by: AYAD MALCOLM Date: 2022-03-21 19:14[facility]06-10-2022 NotePROCEDURE: XR ANKLE LT MIN 3 V COMPARISON: 02/07/2020 HISTORY: Pain of left ankle joint FINDINGS: BONES:No fracture, acute abnormality, or significant arthropathy. SOFT TISSUES:Negative. No visible soft tissue swelling. EFFUSION:None visible. OTHER: Negative. IMPRESSION: No acute abnormality Electronically authenticated by: AYAD MALCOLM Date: 2022-02-15 07:35[facility]* Diagnosis Abnormal weight gain- Primary Preop testing Preoperative examination, unspecified Morbid obesity with BMI of 50.0-59.9, adult ([facility]) Morbid obesity HANH (obstructive sleep apnea) Obstructive sleep apnea (adult) (pediatric) documented in this encounter [facility]* Diagnosis Body mass index 50.0-59.9, adult (HCC)- Primary Body Mass Index 50.0-59.9, adult Dietary counseling and surveillance Dietary surveillance and counseling documented in this encounter [facility]* Diagnosis Sweating abnormality Status post hysterectomy Acquired absence of both cervix and uterus Vaginal dryness Postmenopausal atrophic vaginitis documented in this encounter [facility] HealthcareEvaluation note* Diagnosis Well woman exam with routine gynecological exam Routine gynecological examination Sweating abnormality Status post hysterectomy Acquired absence of both cervix and uterus Vaginal dryness Postmenopausal atrophic vaginitis BV (bacterial vaginosis) Unspecified vaginitis and vulvovaginitis Yeast infection of the vagina Candidiasis of vulva and vagina documented in this encounter [facility] HealthcareReason for referral (narrative)* Outpatient Procedure (Routine) - Pending ReviewSpecialtyDiagnoses / ProceduresReferred By ContactReferred To ContactMAIN [facility] [place] Diagnoses Abnormal weight gain Preop testing Morbid obesity with BMI of 50.0-59.9, adult (HCC) HANH (obstructive sleep apnea) Procedures ECG COMPLETE ECG ROUTINE ECG W/LEAST 12 LDS W/I&R Rosa Maria Israel MD [address] [place] [address] [facility] [address] [place] [id number] Referral IDStatusReasonStart DateExpiration DateVisits RequestedVisits [id number] Auto-Generated Referral / [facility] Summary Purpose Family History No Family History [...] any alcohol or drug abuse patient.[facility] ShawIn the event this information is protected by the Federal Confidentiality of Alcohol and Drug Abuse Patient Records regulations: The Federal rules restrict any use of the information to criminally investigate or prosecute any alcohol or drug abuse patient.[facility] Reason for Visit (unrecogniz ed section and content) ReasonCommentsNew PatientReasonCommentsPatient EducationAssessmentReasonComments Excessive SweatingReasonCommentsWell Women Visit Care Teams (unrecognized sec tion and content) Team MemberRelationshipSpecialtyStart DateEnd Date Isabelle Noah Gabriela, DO [address] [facility], [place] [phone] ReferringOB/GYN04/23/22Team MemberRelationshipSpecialtyStart DateEnd Date IsabelleNoah Gabriela, DO [address] [facility] [place] [address] ReferringOB/GYN04/23/22Team MemberRelationshipSpecialtyStart DateEnd Date Valerie Way MD [address] [place] [facility] [place] [address] PCP - GeneralFamily Medicine01/27/23Team MemberRelationshipSpecialtyStart DateEnd Date Valerie Way MD [address] [place] [facility] [place] [address] PCP - GeneralFamily Medicine01/27/23Team MemberRelationshipSpecialtyStart DateEnd Date Valerie Way MD [address] [place] [facility] [place] [address] PCP - GeneralFamily Medicine01/27/23Team MemberRelationshipSpecialtyStart DateEnd Date Valerie Way MD [address] [place] [facility] [place] [address] PCP - GeneralFamily Medicine01/27/23Te MemberRelationshipSpecialtyStart DateEnd Valerie Way MD [address] [facility] [place] [address] PCP - GeneralFamily Medicine01/27/23Te MemberRelationshipSpecialtyStart DateEnd Date Valerie Way MD PCP - GeneralFamily Medicine01/27/23 INFORMATION SOURCE (unrecogn ized section and content) DATE CREATED AUTHOR 05/18/2022 [facility] DATE CREATED AUTHOR AUTHOR'S ORGANIZ ATION 01/01/2023 [facility] DATE CREATED AUTHOR AUTHOR'S ORGANIZ ATION 01/08/2024 [facility] DATE CREATED AUTHOR AUTHOR'S ORGANIZ ATION 12/23/2024 [facility] DATE CREATED AUTHOR AUTHOR'S ORGANIZ ATION 05/08/2025 [facility] DATE CREATED AUTHOR AUTHOR'S ORGANIZ ATION 07/01/2025 [facility] FOR RECORDS PERTAINING TO PATIENTS WHO ARE [...] BE BASED ON THE PRIMARY CLINICAL RECORDS. [employer] provides no warranty or guarantee of the accuracy or completeness of information in this document.
[2025-07-30] MEDS: METHYLPREDNISOLONE SOD SUCC PF 125 MG/2 ML VIAL IM (00:16)
[2025-07-30] MEDS: ORPHENADRINE 60 MG/2 ML VIAL IM (00:16)
--- OUTSIDE RECORDS SUMMARY | 2025-07-30 00:16 | XMS_ITS | Clinical Summary ---
Author Organization [facility] Healthcare Address [address] [place] [address] Care Team Providers Care Community Outreach Worker Name Role Phone Rojelio Donato MD Primary Care Provider [phone] Allergies Active AllergyReactionsCriticalityNoted JrglKsnwwhsoCkwwbawzjiaSdyla47/22/2016 OigcwsfwgEwhifnyzAtbjvh44/19/2022 Other Reaction(s): Other: See Comments headache Medications [...] 1 (one) time per week 12 patch 304//[id number]/6Active Family History Medical HistoryRelationNameCommentsCancerMaternal GrandmotherHypertension Maternal GrandmotherHeart diseaseMotherHypertensionMotherMental illnessMother RelationNameStatusCommentsMaternal GrandmotherDeceasedMother Social History Tobacco UseTypesPacks/DayYears UsedDateSmoking Tobacco: NeverSmokeless Tobacco: Never Tobacco Cessation:Counseling Given: Not Answered Alcohol UseStandard Drinks/WeekCommentsNot Currently0 (1 standard drink = 0.6 oz pure alcohol)CommentsNoSex and Gender InformationValueDate RecordedSex Assigned at BirthNot on fileLegal LtyThoroy33/15/2023 11:47 PM EDTGender IdentityNot on fileSexual OrientationNot on file Last Filed Vital Signs Vital SignReadingTime TakenCommentsBlood Iqbemrtz683/70012/21/2024 3:05 PM EDT Pulse--Temperature--Respiratory Rate--Oxygen Saturation--Inhaled Oxygen Concentration--Saifay671 kg (297 lb 1.9 oz)12/21/2024 3:05 PM NDPVblfce373.9 cm (5' 1 )04/17/2023 10:26 AM EDTBody Mass Index56.14004/17/2023 10:26 AM EDT Plan of Treatment DateTypeDepartmentCare Team (Latest Contact Info)Iymmfwzhjfv80/22/2026 4:00 PM EDTOffice Visit [facility]YA[facility] [address] [place] [address] Noah Walton DO [address] [place], [place] [id number] Insurance Care Teams Team MemberRelationshipSpecialtyStart DateEnd Rojelio Donato MD PCP - GeneralFamily Medicine5/22/23
--- OUTSIDE RECORDS SUMMARY | 2025-07-30 00:19 | XMS_ITS | Clinical Summary ---
Author Organization [facility] Address [address] [place] [address] Care Team Providers Care Loin Trimmer Name Role Phone Rojelio Donato MD Primary Care Provider [phone] Allergies Active AllergyReactionsCriticalityNoted DateCommentsHydromorphoneNausea Only 04/20/2025HydrocodoneNausea Only10/30/2015MeloxicamHeadache,OtherMedium 11/02/2019 Other Reaction(s): Other: See Comments headache headache Medications MedicationSigDispense QuantityRefillsLast FilledStart DateEnd DateStatus ssbjobsndy-cjomxjevtamdf-scyv (Fioricet) 50-300-40 mg capsule Take 1 capsule [...] ProblemNoted DateDiagnosed DateIncisional hernia, without obstruction or ctdzhrut66/23/2025 Encounters DateTypeDepartmentCare VxeqNfnegkeguvy02/22/2025 2:45 PM EDTOffice Visit [facility] [address] [place] [address] Tk Herrera MD Postoperative visit (Primary Dx); Morbid obesity (CMS/HCC)05/11/2025 2:00 PM EDTOffice Visit [facility] Surgery Clinic [address] [place] [address] Tk Herrera MD Incisional hernia, without obstruction or gangrene (Primary Dx); Morbid obesity (CMS/HCC)05/02/2025Telephone [facility] Surgery [facility] [address] [place] [address] Nara Baker MA 04/29/2025 1:00 PM EDT - 04/29/2025 5:00 PM EDTSurgery [facility] Main Operating Room [address] [place] [address] Tk Herrera MD ROBOTIC INCISIONAL HERNIA REPAIR WITH MESH04/29/2025 12:31 PM EDTAnesthesia Event [facility] Main Operating Room [address] [place] [address] Naldo Zuniga MD Cox, Jonathan D, [facility] 04/29/2025 10:56 AM EDT - 04/29/2025 6:29 PM EDTHospital Encounter [facility] Main Operating Room [address] [place] [address] Tk Herrera MD Incisional hernia, without obstruction or gangrene Discharge Disposition: Home or Self Care (01)04/29/2025Travelfrom Last 3 Months Social History Tobacco UseTypesPacks/DayYears UsedDateSmoking Tobacco: NeverSmokeless Tobacco: Never Tobacco Cessation:Counseling Given: Not Answered Alcohol UseStandard Drinks/WeekCommentsDefer0 (1 standard drink = 0.6 oz pure alcohol)Humiliation, Afraid, Rape, and Kick questionnaireAnswerDate Recorded Within the last year, have you been afraid of your partner or ex-partner?No 06/29/2025Emotionally AbusedNot on file06/29/2025Physically AbusedNot on file 06/29/2025Sexually AbusedNot on file06/29/2025PHQ-2AnswerDate RecordedPatient Health Questionnaire-2 Tjrsq770CommentsNoSex and Gender InformationValueDate RecordedSex Assigned at FmhihCnyrvz52/22/2025 10:54 AM EDT Legal WgxWmjvls46/29/2022 9:39 PM EDTGender VkedximsOflzig57/22/2025 10:54 AM EDTSexual OrientationHeterosexual or Uwyhabcm65/22/2025 10:54 AM EDT Last Filed Vital Signs Vital SignReadingTime TakenCommentsBlood Shxbawjt034/9606/29/2025 2:40 PM EDT Yygma53994/22/2025 2:40 PM GNEIqwajezxwad14.6 ??C (97.8 ??F)06/29/2025 2:40 PM EDTRespiratory Aycx5396 2:40 PM EDTOxygen Dlftxhlqxp48%06/29/2025 2:40 PM EDTInhaled Oxygen Concentration--Fsbxfy449 kg (312 lb 9.6 oz)06/29/2025 2:40 PM BIUNkuiee485.9 cm (5' 1 )04/29/2025 11:12 AM EDTBody Mass Index59.07 04/29/2025 11:12 AM EDT Plan of Treatment Health MaintenanceDue DateLast DoneCommentsVaricella Vaccines (1 of 2 - 13+ 2- dose series)2006dult Xglemrh13HPV/Pvqrih6610/15/2023 COVID-19 Vaccine ( - season)/07/2022, 12/03/2021, 10/25/2021Influenza Vaccine (#1)/07/2022, 06/27/2009, 10/18/2008, Additional history existsDepression Pdxbdshmv76ervical Cancer Ofhzxgawy57/15/2028Pap SmearZoster Vaccines (1 of 2) 2043HIB AkuvsazuCkwntfzpt86/25/1995, 10/31/1994, 07/26/1994, Additional history existsIPV UjjbvxkkSsoernzer53/09/1998, 05/02/1995, 10/31/1994, Additional history existsMeningococcal VaccineAged Out01/01/2008No [...] ImplantedTypeAreaManufacturerDevice IdentifierShelf Expiration DateModel / Serial / LotMesh,Surcigal,Progrip,[id number] - [id number] Implanted:Qty: 1 on 04/29/2025 by Tk [facility]: AbdomenMEDTRONIC [id number]/ [id number] / / [id number] Procedures Procedure NamePriorityDate/TimeAssociated DiagnosisCommentsPR AN ELECTIVE ENDOTRACHEAL INXWZESclyitm71/22/2025 12:44 PM EDT REPAIR, HERNIA, VENTRAL, ROBOT-YNNHIGEI65/22/2025 12:33 PM EDT Incisional hernia, without obstruction or gangrene POCT GLUCOSE METER UNSOLICITED XSWXLTEWqyizje99/22/2025 11:36 AM EDT from Last 3 Months Results * [place] AN ELECTIVE ENDOTRACHEAL AIRWAY (04/29/2025 12:44 PM EDT) Naldo Trujillo MD - 04/29/2025 12:44 PM EDT Naldo Zuniga MD 04/29/2025 6:44 PM Airway Date/Time: 04/29/2025 12:44 PM Reason: elective Airway not difficult General Information and Staff Patient location during procedure: OR Anesthesiologist: Naldo Zuniga MD Resident/SHELLFISH PROCESSING LABORER/CAA: Tra Ochoa MD Performed: resident/SHELLFISH PROCESSING LABORER/CAA Patient Condition Indications for airway management: anesthesia [...] EDT)ComponentValueRef RangeTest Method Analysis TimePerformed AtPathologist SignatureGlucose UFP9948 - 105 mg/dL 04/29/2025 11:52 AM EDTC[facility])Comment:ngrothaSpecimen (Source)Anatomical Location / LateralityCollection Method / VolumeCollection TimeReceived TimeBloodCapillary blood specimen / Pfhzbhe0704/29/2025 11:36 AM EDT04/29/2025 11:52 AM EDT Narrative [facility] - 04/29/2025 11:52 AM EDT Waived Testing in the ED is performed under the ED CLIA certificate #[id number]. Authorizing ProviderResult TypeResult StatusTk BASSETT BLOOD ORDERABLES Final ResultPerforming OrganizationAddressCity/State/ZIP CodePhone Number [facility] [address] [place] [phone] from Last 3 Months Insurance Advance Directives * Full Code (Latest Code Status on File) Date ActivatedDate InactivatedComments04/29/2025 11:10 AM04/29/2025 8:29 PM Care Teams Team MemberRelationshipSpecialtyStart DateEnd Date Rojelio Donato MD [address] [place] [address] PCP - [facility]En[facility] Medicine03/21/25
--- OUTSIDE RECORDS SUMMARY | 2025-07-30 00:20 | XMS_ITS | Patient Health Record ---
Author Organization The [facility] in [place] Address [address] [place] [address] Care Team Providers Care Two Way Radio Technician Name Role Phone Caesar Way Primary Care Provider [phone] Allergies Allergen (clinical drug ingredient) Drug/Non Drug Allergy documented on EMR Reaction Allergy Type Onset Date Status meloxicam Meloxicam headache Drug Allergy Active Results Component Value Reference Range Notes COVID-19, Flu A+B IH Reviewed date:12/26/2024 07:31:03 PM Interpretation: Performing Lab: Notes/Report: COVID - FLU A+FLU B-Control+UA DIP NONAUTO WO MICRO (70450) - IN OFFICE Reviewed date:01/12/2025 03:48:29 PM Interpretation: Performing Lab: Notes/Report: COLORYellowCLARITYDarkGLUCOSENegBILIRUBINNegKETONENegSPECIFIC GRAVITY1.030BLOOD LnfTM4KTFSUWBZnbMRLAOYQMURNLJerQNZIJBIHltZBEJRYCQG ESTERASE++UA DIP NONAUTO WO MICRO (50034) - IN OFFICE Reviewed date:03/16/2025 06:47:02 PM Interpretation: Performing Lab: Notes/Report: COLORyellowCLARITYcloudyGLUCOSEnBILIRUBINnKETONEnSPECIFIC GRAVITY1.172RXGGH925++ IS9ZLPYLMRplxboMGRYFWIFORRHoZPMKPDJoSXQRKXSUQ ESTERASE++COVID-19, Flu A+B IH (Not yet reviewed by provider) Interpretation: Performing Lab: Notes/Report: COVID-FLU A-FLU B-Control+CBC AUTO DIFF Reviewed date:10/06/2024 08:50:29 PM Interpretation: Performing Lab: Notes/Report: [facility] ,White Blood Count9.84.0-11.0 10 3/uLRed Blood Count4.394.20-5.40 10 6/uL Yepudesopm94.412.0-16.0 g/tNIdberlosit66.536.0-48.0 %Mean Corpuscular Roqygr82.3 81.0-99.0 fLMean Corpuscular Zckdaidmob04.526.7-34.0 pgMean Corpuscular HGB Conc 33.129.9-35.2 g/dLRed Cell Distribution Width12.411.0-15.0 %Platelet Wvhwx803 150-450 10 3/uLMean Platelet Volume9.99.5-13.5 fLNeutrophils Percent Auto69.2 43.0-75.0 %Lymphocytes Percent Auto23.820.5-60.0 %Monocytes Percent Auto6.51.7- 12.0 %Eosinophils Percent Auto0.10.9-7.0 %Basophils Percent Auto0.20.2-2.0 % Immature Granulocytes Pct Auto0.20.0-0.5 %Neutrophils Absolute Auto6.81.4-6.5 10 3/uLLymphocytes Absolute Auto2.31.2-3.8 10 3/uLMonocytes Absolute Auto0.60.3-0.8 10 3/uLEosinophils Absolute Auto0.00.0-0.7 10 3/uLBasophils Absolute Auto0.00.0- 0.1 10 3/uLImmature Granulocytes Abs Auto0.020.00-0.03 10 3/uLPerforming Lab:see noteML - [facility] LBPROF CHEM 8 (BAS METB) Reviewed date:10/06/2024 08:50:29 PM Interpretation: Performing Lab: Notes/Report: [facility] ,Edefbu937367-391 mmol/LPotassium3.33.5-5.1 mmol/RJwvdqnwe34029-866 mmol/LCarbon Quacknb00.321.0-32.0 mmol/LAnion Gap10.8Nxgfxet8116-881 mg/dLBlood Urea Nitrogen 18.07.0-18.0 mg/dLCreatinine0.720.55-1.02 mg/dLEstimated GFR ( Kajal>60 >=60 mL/min/1.73m 2Estimated GFR (Non- Zehra>60>=60 mL/min/1.73m 2BUN Creatinine Ratio25.7Lfffthn8.08.5-10.1 mg/dLPerforming Lab:see noteML - [facility] LBIGP,Aptima HPV,Age Gdln Reviewed date:12/26/2024 07:31:03 PM Interpretation: Performing Lab: Notes/Report: SPATULA-ALONE VAGINA [facility] ,Age Gdln ACOG TestingNote. TESTS RESULT FLAG UNITS REF RANGE LAB Clinician Provided Cytology Information Source.............Vagina No. of containers..01 ThinPrep Vial Age Algo ACOG Ofe... 30-65 01 FLAG LEGEND: L-Low Normal,H-High Normal,LL-Alert Low,HH-Alert High <-Panic Low,>-Panic High,A-Abnormal,AA-Critical Abnormal Performed at: 01 =G [facility] [address] [address] Martha Chen MD, IGP, Aptima HPV, rfx 16/18,45Note. TESTS RESULT FLAG UNITS REF RANGE LAB DIAGNOSIS: 02 NEGATIVE FOR INTRAEPITHELIAL LESION OR MALIGNANCY. Specimen adequacy: 02 Satisfactory for evaluation. Performed by: 02 Jessica Bo, Change Coordinator ([facility]) . 02 Note: Note 02 The Pap [...] <-Panic Low,>-Panic High,A-Abnormal,AA-Critical Abnormal Performed at: [address] [place] [address] Martha Chen MD, HPV AptimaNegativeNegative This nucleic acid amplification test detects fourteen high- risk HPV types (16,18,31,33,35,39,45,51,52,56,58,59,66,68) without differentiation. Performed at: =[address], [place] [address] Health Navigator: Martha Chen MD, Phone: [phone] Performed at: [address], [place] [address] Health Navigator: Martha Chen MD, Phone: [phone] Performing Lab:see noteLC - [facility] LBCBC AUTO DIFF Reviewed date:03/16/2025 06:47:01 PM Interpretation: Performing Lab: Notes/Report: [facility] ,White Blood Count8.74.0-11.0 10 3/uLRed Blood Count4.634.20-5.40 10 6/uL Wbtxzwqmpv33.012.0-16.0 g/bKOnvzmxvzzs42.036.0-48.0 %Mean Corpuscular Dfpvhv14.7 81.0-99.0 fLMean Corpuscular Dgjwhcqynl40.226.7-34.0 pgMean Corpuscular HGB Conc 33.329.9-35.2 g/dLRed Cell Distribution Width12.511.0-15.0 %Platelet Yutgo493 150-450 10 3/uLMean Platelet Volume9.79.5-13.5 fLNeutrophils Percent Auto65.2 43.0-75.0 %Lymphocytes Percent Auto26.920.5-60.0 %Monocytes Percent Auto6.81.7- 12.0 %Eosinophils Percent Auto0.70.9-7.0 %Basophils Percent Auto0.20.2-2.0 % Immature Granulocytes Pct Auto0.20.0-0.5 %Neutrophils Absolute Auto5.71.4-6.5 10 3/uLLymphocytes Absolute Auto2.41.2-3.8 10 3/uLMonocytes Absolute Auto0.60.3-0.8 10 3/uLEosinophils Absolute Auto0.10.0-0.7 10 3/uLBasophils Absolute Auto0.00.0- 0.1 10 3/uLImmature Granulocytes Abs Auto0.020.00-0.03 10 3/uLPerforming Lab:see noteML - [facility] LBUA RANDOM W or MICROSCOPIC Reviewed date:03/16/2025 06:47:02 PM Interpretation: Performing Lab: Notes/Report: [facility] ,Color UrineYELLOWYELLOWClarity UrineCLEARCLEARSpecific Mystic Urine1.025 1.005-1.025pH Urine6.05.0-9.0Protein UrineNEGATIVENEG/TRACE mg/dLGlucose Urine UANEGATIVENEGATIVE mg/dLBilirubin UrineNEGATIVENEGATIVEKetones UrineTRACE NEGATIVE mg/dLBlood UrineSMALLNEGATIVENitrite UrineNEGATIVENEGATIVEUrobilinogen Urine1.00.2-1.0 EU/dLLeukocyte Esterase UrineNEGATIVENEGATIVEWBC Urine0-2NONE SEEN #/HPFRBC Ntjwy7-412-9 #/HPFBacteria UrineTRACENONE SEEN #/HPFMucus Urine NONE SEENNONE SEENSquamous Epithelial Cell UrineFEWNONE/RARE #/LPFCrystals Seen? None SeenNone Seen #/HPFCast Seen?NONE SEENNONE SEEN #/LPFUrine Culture IndicatedNOPerforming Lab:see noteML - [place] LBMR head/brain wo con Reviewed date:05/28/2025 03:35:41 PM Interpretation: Performing Lab: Notes/Report: Source Facility: [place] [address] [place] [address] Magnetic Resonance Report Signed Patient: CONNIE SALCIDO MR#: [id number] : 1995 Acct:[id number] Age/Sex: 29 / F ADM Date: 05/26/25 Loc: MRI Attending Dr: Valerie Way M.D. Ordering Physician: Valerie Way M.D. Date of Service: 05/26/25 Procedure(s): MR head/brain wo con Accession Number(s): [id number] cc: Valerie Way M.D. [place] [address] Patient Name: CONNIE SALCIDO MRN: [id number] date: 1995 Sex: F Assigned Patient Location: MRI Current Patient Location: MRI Accession/Order Number: [id number] Exam Date: 05/26/2025 14:15 Report Date: 05/26/2025 23:20 At the request of: VALERIE WAY MD Procedure: MR head/brain wo con MR [...] 05/26/2025 11:20 PM Dictation Location: [place] [address] Electronically authenticated by: [id number] Y Date: 05/26/2025 23:20 Dictated By: Ethan Chery M.D. Signed By: 05/26/252321 DD/ 19 TD/TT: Operations Project Manager:Upper Respiratory Culture Reviewed date:06/15/2025 12:26:19 PM Interpretation: Performing Lab: Notes/Report: [facility] ,Upper Respiratory CultureSee Below For Report Upper Respiratory Culture Upper Respiratory CultureRoutine respiratory ollie Upper Respiratory Culture Upper Respiratory CulturePerformed at: CB - [facility] [place] Upper Respiratory Culture Upper Respiratory [address] [place], [place] [address] Upper Respiratory Culture Upper Respiratory CultureLab Director: Marcell Godoy PhD, Phone: [phone] Upper Respiratory Culture Performing Lab:see note LC - [facility] LB SEE REPORT - Geology Technician Id information not found for OBX-specific news producer legend PROF CHEM 8 (BAS METB) Reviewed date:03/16/2025 06:47:02 PM Interpretation: Performing Lab: Notes/Report: [facility] ,Hdretv922442-740 mmol/LPotassium3.33.5-5.1 mmol/QOmwxbvjy81858-473 mmol/LCarbon Ofaxwau64.621.0-32.0 mmol/LAnion Gap9.0Vkmioxt1075-361 mg/dLBlood Urea Nitrogen 13.07.0-18.0 mg/dLCreatinine0.690.55-1.02 mg/dLEstimated GFR ( Kajal>60 >=60 mL/min/1.73m 2Estimated GFR (Non- Zehra>60>=60 mL/min/1.73m 2BUN Creatinine Ratio18.5Jcaozpk3.58.5-10.1 mg/dLPerforming Lab:see noteML - [place] LBLIVER PROFILE Reviewed date:03/16/2025 06:47:01 PM Interpretation: Performing Lab: Notes/Report: [facility] ,Bilirubin Total0.40.2-1.0 mg/dLBilirubin Direct0.10.0-0.2 mg/dLAspartate Amino Dhkodyuksfv9283-24 U/LAlanine Sedjovzrzffijees9857-59 U/LAlkaline Xyjfxobywpd35 46-116 U/LTotal Protein7.46.4-8.2 g/dLAlbumin Level3.43.4-5.0 g/dLGlobulin4.0 Albumin Globulin Ratio0.9Performing Lab:see noteML - [place] LB LIPASE Reviewed date:03/16/2025 06:47:01 PM Interpretation: Performing Lab: Notes/Report: [facility] ,Osfgrd96.016.0-77.0 U/LPerforming Lab:see noteML - [place] LB AMYLASE Reviewed date:03/16/2025 06:47:01 PM Interpretation: Performing Lab: Notes/Report: [facility] ,Iuquwtd9371-647 U/LPerforming Lab:see note - [place] LBCT head/brain wo con Reviewed date:10/06/2024 08:50:29 PM Interpretation: Performing Lab: Notes/Report: Source Facility: [place] [address] CT Scan Report Signed Patient: CONNIE SALCIDO MR#: [id number] : 1995 Acct:[id number] Age/Sex: 28 / F ADM Date: 10/06/24 Loc: ER Attending Dr: Ordering Physician: Jaki Whitman Date of Service: 10/06/24 Procedure(s): CT head/brain wo con Accession Number(s): [id number] cc: Valerie Way M.D. [place] [address] Patient Name: CONNIE SALCIDO MRN: [id number] date: 1995 Sex: F Assigned Patient Location: ER Current Patient Location: ER Accession/Order Number: [id number] Exam Date: 10/06/2024 17:42 Report Date: 10/06/2024 [...] could be obtained. Electronically authenticated by: AKIN YEH Date: 10/06/2024 18:45 Dictated By: Akin Wiggins M.D. Signed By: 10/06/241847 DD/ 44 TD/TT: Operations Project Manager:KAHLIL Qualitative* Reviewed date:10/06/2024 08:50:29 PM Interpretation: Performing Lab: Notes/Report: [facility] ,HCG QualitativeNEGATIVENEGATIVEPerforming Lab:see noteML - [place] TENFNF-NhJ-6 Ag* Reviewed date:10/06/2024 08:50:29 PM Interpretation: Performing Lab: Notes/Report: [facility] ,SARS-CoV-2 AgNEGATIVENEGATIVE This test has not been FDA cleared [...] revoked sooner. Performing Lab:see noteML - [facility] LBINFLUENZA A AND B AG Reviewed date:10/06/2024 08:50:29 PM Interpretation: Performing Lab: Notes/Report: [facility] ,Influenza Virus A AntigenNegative Negative for Flu A protein antigen. Infection due to Flu A cannot be ruled out. Flu A antigen in the sample may be below the detection limit of the test. Influenza Virus B AntigenNegative Negative for Flu B protein antigen. Infection due to Flu B cannot be ruled out. Flu B antigen in the sample may be below the detection limit of the test. Performing Lab:see noteML - [facility] LBCOVID-19, Flu A+B IH Reviewed date:05/28/2025 03:35:41 PM Interpretation: Performing Lab: Notes/Report: COVID-FLU A-FLU B-Control+SARS-CoV-2 Ag* Reviewed date:06/12/2025 02:17:15 PM Interpretation: Performing Lab: Notes/Report: [facility] ,SARS-CoV-2 AgNEGATIVENEGATIVE This test has not been FDA cleared [...] revoked sooner. Performing Lab:see noteML - [facility] LBSTREPT SCREEN Reviewed date:06/12/2025 02:17:15 PM Interpretation: Performing Lab: Notes/Report: [facility] ,Strep A Antigen ScreenNegativePerforming Lab:see noteML - [facility] LBINFLUENZA A AND B AG Reviewed date:06/12/2025 02:17:15 PM Interpretation: Performing Lab: Notes/Report: [facility] ,Influenza Virus A AntigenNegative Negative for Flu A protein antigen. Infection due to Flu A cannot be ruled out. Flu A antigen in the sample may be below the detection limit of the test. Influenza Virus B AntigenNegative Negative for Flu B protein antigen. Infection due to Flu B cannot be ruled out. Flu B antigen in the sample may be below the detection limit of the test. Performing Lab:see noteML - [facility] LBCT abdomen pelvis w con Reviewed date:03/16/2025 07:00:23 PM Interpretation: Performing Lab: Notes/Report: Source Facility: [facility]-[address] [place] [address] [place] [address] CT Scan Report Signed Patient: CONNIE SALCIDO MR#: [id number] : 1995 Acct:[id number] Age/Sex: 29 / F ADM Date: 03/16/25 Loc: ER Attending Dr: Ordering Physician: Kiki Hernandes M.D. Date of Service: 03/16/25 Procedure(s): CT abdomen pelvis w con Accession Number(s): [id number] cc: Valerie Way M.D. [place] [id number] Patient Name: CONNIE SALCIDO MRN: [id number] date: 1995 Sex: F Assigned Patient Location: ER Current Patient Location: ER Accession/Order Number: [id number] Exam Date: 03/16/2025 18:47 Report Date: 03/16/2025 18:51 At the request of: KIKI HERNANDES MD Procedure: CT abdomen pelvis w con [...] Abbasi M.D. 03/16/2025 6:51 PM Dictation Location: [place] [address] Electronically authenticated by: [id number] Y Date: 03/16/2025 18:51 Dictated By: Silver Abbasi M.D. Signed By: 03/16/251852 DD/ 50 TD/TT: Operations Project Manager: Reason For Referral Diagnosis 1 Ventral hernia (K43. 9) Referral Organization [facility] Referring Provider First Name Caesar Referring Provider Last Name [facility] Referring Provider [facility] Referred Provider Gary Godwin Referred Provider Specialty General Surg yunier Referral Priority Routine Diagnosis 1 Ventral hernia (K43. 9) Referral Organization [facility] Referring Provider First Name Caesar Referring Provider Last Name [facility] Referring Provider [facility] Referred Provider Tk Herrera Referred Provider Specialty General Surg yunier Referral Priority Routine Reason MRI head/brain eleva bereket pressures Diagnosis 1 Hydrocephalus (G91.9 ) Referral Organization [facility] Referring Provider First Name Caesar Referring Provider Last Name [facility] Referring Provider [facility] Referred Provider Fabrizio Shah Referred Provider Specialty Neurosurgery Referral Priority Routine Medications Medication SIG (Take, Route, Frequency, Duration) Notes Start Date End Date Status hydrOXYzine HCl 25 MG 1 tablet as needed Orally qid; Duration: 10 days 5ActiveCyclobenzaprine HCl 10 MG1 tablet Orally tid; Duration: 30 days PRN5ActiveAdipex-P 37.5 MG1 tablet before breakfast Orally Once a day 5ActiveTopiramate 50 MG1 tablet Orally Once a day; Duration: 30 days 5ActivePristiq 50 MG1 tablet Orally Once a day; Duration: 30 days 6853KfrqydMbckvgijlw-FXTL-Okqghhsi 50-325-40 MGTAKE 1 TABLET BY MOUTH THREE TIMES DAILY NEEDED; Duration: 5ActiveOndansetron 4 MG1 tablet on the tongue and allow to dissolve Orally Once a day; Duration: 30 daysPRN 4ActiveNurtec 75 MG1 tablet on the tongue and allow to dissolve Orally daily- PRN; Duration: 30 daysPLEASE RUN THIS ONE- PA SAYS COVERS 8 tablets 5ActiveAmoxicillin-Pot Clavulanate 875-125 MG1 tablet Orally every 12 hrs; Duration: 10 days5Active Social History Tobacco Use: Social History Observation Description Date Details (start date - stop date) Never Smoker NA - NA Tobacco Use/Smoking Question Answer Notes Patient is a nonsmoker Alcohol Screen (Audit-C) Question Answer Notes Did you have a drink containing alcohol in the p ast year? No Xltbvq0KnydoezlxuhfreSeaomrejOPPXP-W (Standard) Question Answer Notes Did you have a drink containing alcohol in the p ast year? No Iixypx7RosxgpegdjbzjmJzqzpdpl Problems Problem Type SNOMED Code ICD Code Onset Dates Problem Status W/U Status Risk Notes Problem Contracture of joint of right ankle (disorder) (645399845830371) Contracture, right ankle (M24.571) ActiveconfirmedProblemContracture of joint of left ankle (disorder) (683789045411515)Contracture, left ankle (M24.572)ActiveconfirmedProblemPlantar fascial fibromatosis (27751094)Plantar fascial fibromatosis (M72.2)Active confirmedProblemAchilles bursitis (687851254)Achilles tendinitis, right leg (M76.61)ActiveconfirmedProblemAchilles bursitis (469718600)Achilles tendinitis, left leg (M76.62)ActiveconfirmedProblemHydrocephalus (382056333)Hydrocephalus (G91.9)ActiveconfirmedProblemObesity (747551911)Obesity (E66.9)Activeconfirmed ProblemAnxiety (32013880)Anxiety (F41.9)ActiveconfirmedProblemDepression (718708028)Depression (F32.9)ActiveconfirmedProblemMigraine (31653781)Migraine (G43.909)ActiveconfirmedProblemVentral hernia (318330566)Ventral hernia (K43.9) ActiveconfirmedProblemAcute sinusitis (98599553)Acute sinusitis (J01.90)Active confirmedProblemRight lower quadrant pain (699893496)Right lower quadrant abdominal pain (R10.31)ActiveconfirmedProblemSciatica (53720741)Sciatica (M54.30)ActiveconfirmedProblemCompression of brain (26029068)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)ActiveconfirmedProblemPain in left foot (300121954737760) Left foot pain (M79.672)ActiveconfirmedProblemAcute gastroenteritis (42627936) Acute gastroenteritis (K52.9)ActiveconfirmedProblemArthralgia of the pelvic region and thigh (439843201)Hip pain, acute, right (M25.551)Activeconfirmed Vital Signs Temperature 98.1 degrees Fahrenheit 07/25/2025 Blood pressure sxdhjqllo34 mm Hg07/25/20250964Ogsdlz91 in07/25/2025lood pressure wiilknjv870 mm Hg07/25/20251354Wuolfx870 lbs109/24/2024BMI59.13 kg/m207/25/2025 Encounters Encounter Location Date Provider Diagnosis [facility] [address] [facility] [place] [address] 10/27/2024 Caesar Hoy [facility] [facility] [address] 11/09/2024Doug [facility]Ob[facility] E66.9B[facility] [facility] [place] [address]/Doug HoyMigraine G43.909[facility] [facility] [address]/Doug [facility]oyBVMiddle [facility] [facility] [place] [address]/ Caesar HoyObesity E66.9BE[facility] [facility] [place] [address]/Doug HoyObesity E66.9B[facility] [facility] [place] [address]/05/2025Doug HoyVentral hernia K43.9BE[facility] [facility] [place] [address]/06/2025 Caesar HoyVentral hernia K43.9B[facility] [place] [address]/12/2024Doug HoyObesity E66.9B[facility] [place] [address]/Doug [facility] [place] [address]/ Caesar [facility]oyBE[facility] [place] [address] 05/31/2025Doug HoyHydrocephalus G91.9 and Migraine G43.909[facility] [place] [address]/09/2024Doug HoyObesity E66.9 [facility] [place] [address] 06/08/2025Doug HoyMigraine G43.909[facility] [place] [address]/10/2024Doug HoyObesity E66.9B[facility] [place] [address]/01/2025Doug [facility] [place] [address] 06/15/2025Doug [facility] [place] [address]/05/2025Doug HoyChiari I malformation G93.5BVMiddle [facility] [place] [address]/05/2025Doug [facility] [place] [address]/ Caesar [facility] [place] [address]/12/2024Doug [facility] [place] [address]/01/2025Doug [facility]oyB[facility] [facility] [place] [address]/Doug [facility]oyBChildren[facility] [facility] [place] [address]/Doug HoyHip pain, acute, right M25.551 and Depression F32.9BChildren[facility] [facility] [place] [address]/06/2025Doug HoyCough R05.9 and Influenza J11.1BChildren[facility] [place] [address]/Doug HoyMigraine G43.909 and Obesity E66.9BM[place] [address] [place] [address]/03/2025Doug Hoy Dysuria R30.0[place] [address] [place] [address]/11/2024Doug HoyUrinary urgency R39.15 ; Depression F32.9 and Anxiety F41.9BMichele [place] [address] [facility] [address]/Doug HoyUTI (urinary tract infection), uncomplicated N39.0 and Dysuria R30.0[place] [address] [facility] [address]/04/2025Doug HoyMigraine G43.909 and Hydrocephalus G91.9BMichele [place] [address] [place] [address]/04/2025 Caesar HoyCough R05.9 and Acute bronchitis, unspecified organism J20.9BMichele [place] [address] [place] [address]/ Caesar HoyObesity E66.9 and Sciatica M54.30BuSamantha [place] [address] [facility] [place] [address]/11/2024Doug HoyHip pain, acute, right M25.551BMichele [place] [address] [facility] [address]/Doug HoyCongestion of nasal sinus R09.81 and Acute bronchitis, unspecified organism J20.9BMichele [place] [address] [facility] [address]/Doug HoyMigraine G43.909BuSamantha [place] [address] [facility] [place] [address]/ Caesar HoyMigraine G43.909BuSamantha [place] [address] [facility] [place] [address]/04/2025Doug HoyAcute bronchitis, unspecified organism J20.9 and Chiari I malformation G93.5 Assessments Encounter Date Diagnosis (ICD Code) Assessment Notes Treatment Notes Treatment Clinical Notes Section Notes 04/15/2025 Migraine (ICD-10 - G43.909) 04/15/2025Hydrocephalus (ICD-10 - G91.9)5Cough (ICD-10 - R05.9) 05/31/2025Migraine (ICD-10 - G43.909)5Acute bronchitis, unspecified organism (ICD-10 - J20.9)Rest and drink more liquids, especially water. You may use a humidifier or vaporizer to help keep the drainage moist. Jllm-lis-bcacqdg Nasal Saline may help the stuffy and runny nose. Use Ibuprofen and or Tylenol as needed for fever, chills, body aches or pain. Children 5 years old should not be given dxmq-lgp-qcgfyam cough and cold medications such as guaifenesin and dextromethorphan. If you're over age 5, you may try oxuo-cdt-xvycqif cold medications such as guaifenesin and dextromethorphan, [...] go to the emergency room or call 6[address]hiari I malformation (ICD-10 - G93.5)needs weight loss due to chiari ongestion of nasal sinus (ICD-10 - R09.81)11/09/2024 Obesity (ICD-10 - E66.9)12/01/2024Migraine (ICD-10 - G43.909)12/29/2024Obesity (ICD-10 - E66.9)02/22/2025Obesity (ICD-10 - E66.9)03/16/2025Ventral hernia (ICD- 10 - K43.9)03/17/2025Ventral hernia (ICD-10 - K43.9)04/11/2025Obesity (ICD-10 - E66.9)05/31/2025Hydrocephalus (ICD-10 - G91.9)05/31/2025Migraine (ICD-10 - G43.909)06/08/2025Obesity (ICD-10 - E66.9)06/08/2025Migraine (ICD-10 - G43.909) 06/09/2025Obesity (ICD-10 - E66.9)06/16/2025hiari I malformation (ICD-10 - G93.5)08/04/2024Obesity (ICD-10 - E66.9)08/04/2024Sciatica (ICD-10 - M54.30) 09/10/2024Hip pain, acute, right (ICD-10 - M25.551)09/20/2024Hip pain, acute, right (ICD-10 - M25.551)09/20/2024Depression (ICD-10 - F32.9)10/18/2024ough (ICD-10 - R05.9)12/01/2024Migraine (ICD-10 - G43.909)12/01/2024Obesity (ICD-10 - E66.9)12/02/2024Migraine (ICD-10 - G43.909)01/12/2025Dysuria (ICD-10 - R30.0) 03/10/2025Urinary urgency (ICD-10 - R39.15)03/10/2025Depression (ICD-10 - F32.9) 03/24/2025UTI (urinary tract infection), uncomplicated (ICD-10 - N39.0)Drink plenty of water. Avoid drinks like coffee, [...] until they are finished. You can use zivz-pno-qhkrpse acetaminophen or ibuprofen if needed for pain. You should follow up with your Primary Care Physician or return to clinic if not improving in the next 3-5 days.03/24/2025Dysuria (ICD-10 - R30.0)5Anxiety (ICD-10 - F41.9)10/18/2024Influenza (ICD-10 - J11.1) 5Acute bronchitis, unspecified organism (ICD-10 - J20.9)Rest and drink more liquids, especially water. You may use a humidifier or vaporizer to help keep the drainage moist. Mngz-zqt-yayivwa Nasal Saline may help the stuffy and runny nose. Use Ibuprofen and or Tylenol as needed for fever, chills, body aches or pain. Children 5 years old should not be given efoa-lcl-faflhhv cough and cold medications such as guaifenesin and dextromethorphan. If you're over age 5, you may try jkcy-vdt-qxxlsxy cold medications such as guaifenesin and dextromethorphan, [...] go to the emergency room or call [phone] bronchitis, unspecified organism (ICD-10 - J20.9)Rest and drink more liquids, especially water. You may use a humidifier or vaporizer to help keep the drainage moist. Xztd-nrl-wfwuule Nasal Saline may help the stuffy and runny nose. Use Ibuprofen and or Tylenol as needed for fever, chills, body aches or pain. Children 5 years old should not be given vyid-bcl-bkposqe cough and cold medications such as guaifenesin and dextromethorphan. If you're over age 5, you may try itxm-yiv-bclbuuq cold medications such as guaifenesin and dextromethorphan, [...] go to the emergency room or call [address]/06/2025OtherRest and drink more liquids, especially water. You may use a humidifier or vaporizer to help keep the drainage moist. Wsjv-dyb-mbokpbk Nasal Saline may help the stuffy and runny nose. Use Ibuprofen and or Tylenol as needed for fever, chills, body aches or pain. Children 5 years old should not be given zosi-rjv-mzvidww cough and cold medications such as guaifenesin and dextromethorphan. If you're o tate age 5, you may try euol-yyw-jdxaeyu cold medications such as guaifenesin and dextromethorphan, [...] Difficile Toxin Gene MARTIN - LC 12/17/2023 COVID-19, Flu A+B IH 07/25/2025 CULTURE URINE 03/24/2025 MRI BRAIN WO CON 04/15/2025 US APPENDIX 08/18/2023 US PELVIS 08/18/2023 XR ABD FLAT UP_PA CH 12/17/2023 XR HIP RT 2 3V W PELVIS 09/20/2024 XR acute abdomen series 08/18/2023 Insurance Providers Payer Name Payer Address Payer Phone Subscriber Number Group Number Insured Name Patient Relationship to Insured Coverage Start Date Coverage End Date [employer] [place] [employer] [address] [place] [address] [id number] Shanna Salcido - patient is the bargwpt31 2022 Medications Administered Medication Instructions Date of Administration Dosage Notes Kenalog-40 bz85Szdywsh-7112/26/202480 mgKetorolac Xwsmfgcejwoy49/07/202360 mg 60Ketorolac Oxfzycxcdulf96/23/202460 cb51Mzlzcoena Agwgyfxatgxc02/23/783628 mg Ketorolac Hsgjhhmfzeqp63/26/747892 mgKetorolac Bphamascygac92/26/251567 mg Ketorolac Kopusqcarufk47/27/314315 mgKetorolac Xoakfyoqkwdn57/08/202560 mg Ketorolac Fahcgtvcrhlv80/23/202560 mgOndansetron HCl mgOrphenadrine Dzggitl63 bs13Hbaafaczeqnc Uvbyclb84 mgOrphenadrine Citrate mgPromethazine 25mg425 mgPromethazine 25mg525 mg Promethazine 25mg525 mgPromethazine, 25 mg mg25 Promethazine, 25 mg vy79Qmertbrmhhvr, 25 mg0 mg Medical (General) History Medical [...] transplantation of bone marrow aspirate 04/09/2019 Gallbladder c2Klyzwuyumktn hysterectomy with cystoscopy, bilateral salpingectomy 04/10/2023Hospitalization History Reason Date(Month/Year) see above
--- OUTSIDE RECORDS SUMMARY | 2025-07-30 00:20 | XMS_ITS | Clinical Summary ---
Author Organization [employer] Address [id number] 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 [employer] Name Role Phone Rojelio Donato MD Primary Care Provider [phone] Allergies Active AllergyReactionsCriticalityNoted QxoaAllckeayCmyaxtpunDjgraetv15/25/2020 Medications MedicationSigDispense QuantityRefillsLast FilledStart DateEnd DateStatus cyproheptadine [...] pain.Active Active Problems ProblemNoted DateDiagnosed DateDepression affecting fedytmchz04/04/2020 Overview (03/11/2020): Currently on Zoloft 100mg daily Rh negative state in antepartum period, third jgccqrook39/02/2020 Overview (03/09/2020): 01/21/20 type and screen: A Negative Rhogam administered 01/21/20 Request for eyjwpxolxsqya49/02/2020 Overview (03/09/2020): Consent signed 02/28/20 RLTCS and BTL scheduled for 03/17/20 Maternal care for other (suspected) abnormality and damage, not applicable or muremuijgca47/02/2020History of khfoolg8003/02/2020 Overview (03/02/2020): Op note reviewed, pLTCS. Scanned in media tab Desires repeat . TOLAC form signed care in third hpvmnyotd22/25/2020 Overview (03/11/2020): Transfer of care from Dr. [...] 148 - 3hr GTT Chronic hypertension affecting gyhehsrlp52/24/2020 Overview (03/11/2020): S/p MFM consult: Baby ASA [...] re-review of records on 03/11/2020 Encounters DateTypeDepartmentCare GdybTrdczytlaas50/29/2025 12:56 PM EDT - 05/06/2025 5:34 PM EDTEmergency [facility] [address] [place] [address] Gary Gómez DO Abrasion of abdominal wall, initial encounter (Primary Dx) Discharge Disposition: Home05/06/2025Travelfrom Last 3 Months Immunizations ImmunizationAdministration DatesNext DueDTaP, Nyqzaqfjvhm33/09/1998,05/02/1995, 10/31/1994,07/26/1994,03/18/1994HPV Raybhmxjsyjs57/02/2009,10/18/2008,01/01/2008 Hep A, 2 Dose10/18/2008,01/01/2008Hep B, Adolescent or Kwjbwzkvi16/25/1995, 11/18/1994,03/18/1994HiB05/02/1995,10/31/1994,07/26/1994,03/18/1994Influenza (IM) Preservative Free06/27/2009Influenza, Im Trivalent Hsnzyrhrjlkw56/10/2009, 07/13/2004MMR03/02/1999,05/02/1995Meningococcal DAK2D9601/01/2008Polio, Cmiwhtudlqh93/09/1998,05/02/1995,10/31/1994,07/26/1994,03/18/1994Rho (D) IG IM 01/21/2020Rho (D) Immune Anedrmey65/11/9157Uwlf20/17/2007 Family History Medical HistoryRelationNameCommentsCongenital heart diseaseDaughterCancer Maternal GrandmotherArthritisMotherBlood ClotsMotherDepressionMotherHeart diseaseMotherHyperlipidemiaMotherRelationNameStatusCommentsDaughterMaternal GrandmotherDeceasedMother Social History Tobacco UseTypesPacks/DayYears UsedDateSmoking Tobacco: NeverSmokeless Tobacco: NeverAlcohol UseStandard Drinks/WeekCommentsNot Currently0 (1 standard drink = 0.6 oz pure alcohol)[place] Depression ScaleAnswerDate Recorded [place] Depression Scale Gszog88303/31/2020The thought of harming myself has occurred to me.Hardly ever03/31/2020ChildcareAnswerDate Recorded RtpiqgtfpUjzuuoq87/12/2019EmploymentAnswerDate RecordedEmploymentUnknown 02/17/2019Hunger ScreeningAnswerDate RecordedWithin the past 12 months we worried whether our food would run out before we got money to buy more.Never True05/06/2025Within the past 12 months the food we bought just didn't last and we didn't have money to get more.Never True05/06/2025Purpose - LifeAnswerDate RecordedPurpose and direction in lngvNffipep39/11/2021CommentsNoSex and Gender InformationValueDate RecordedSex Assigned at BirthNot on fileLegal Sex Mdwtba3004/13/2015 11:48 AM EDTGender IdentityNot on fileSexual OrientationNot on file Last Filed Vital Signs Vital SignReadingTime TakenCommentsBlood Idsetwut533/8205/06/2025 5:23 PM EDT Haxhs826705/06/2025 5:23 PM TRPXxjcvmzrthj75.8 ??C (98.2 ??F)05/06/2025 12:58 PM EDTRespiratory Etua510705/06/2025 5:23 PM EDTOxygen Dnseqyadwt66%05/06/2025 5:23 PM EDTInhaled Oxygen Concentration--Lpzbft073.9 kg (306 lb 4.8 oz)05/06/2025 12:58 PM THSDbmrxo567.9 cm (5' 1 )05/06/2025 12:58 PM EDTBody Mass Index57.87 05/06/2025 12:58 PM EDT Plan of Treatment Health MaintenanceDue DateLast DoneCommentsAdult BMI Follow Up Plan2011 DTaP,Tdap and Td Vaccines (7 - Td or Tdap), 06/16/1998, 05/02/1995, Additional history existsDepression Kbmyrblvs87 COVID-19 Vaccine ( season), 12/03/2021, 10/25/2021Influenza Nikszpz93/07/2022, 06/27/2009, 10/18/2008, Additional history existsAdult BMI Cjsqkyqdx52Tobacco Nkfwmhovd40Pap Smear804 Medical Devices Not on file Procedures Procedure NamePriorityDate/TimeAssociated DiagnosisCommentsCT ABDOMEN AND PELVIS W DLCWUTQT13/29/2025 3:30 PM EDT CBC WITH AUTO UDTJUIXNUQRRMGQY23/29/2025 2:10 PM EDT EXTRA TUBES DUONG TOP ON QHGRxfghlo41/29/2025 2:09 PM EDT EXTRA TUBES BLUE UVQJcjzegl98/29/2025 2:09 PM EDT EXTRA HXWLHFldqwkh00/29/2025 2:09 PM EDT COMPREHENSIVE METABOLIC IWBKZAMWN64/29/2025 2:09 PM EDT C-REACTIVE KQQCNJVUOOW64/29/2025 2:09 PM EDT from Last 3 Months Results * CT [...] 05/06/2025 3:46 PM Authorizing ProviderResult TypeResult StatusMichael P Dalia [facility] CT ORDERABLESFinal Result * (ABNORMAL) CBC auto differential (05/06/2025 2:10 PM EDT)ComponentValueRef RangeTest MethodAnalysis TimePerformed AtPathologist LsmhnhpgbANO31.24 - 11 x10E9/L05/06/2025 2:22 PM [facility]RBC Count4.75 3.8 - 5.2 X10E12/L05/06/2025 2:22 PM [facility] Fntviedgzq77.211.7 - 15.5 g/dL05/06/2025 2:22 PM [facility]ITALHematocrit42.035 - 47 %05/06/2025 2:22 PM [facility]MCV8880 - 100 fL05/06/2025 2:22 PM [facility]MCH30.027 - 34 pg05/06/2025 2:22 PM [facility]MCHC33.932 - 36 g/dL05/06/2025 2:22 PM [facility]ITALRDW13.411.5 - 15 %05/06/2025 2:22 PM [facility]ITALPlatelet Vmtgh473822 - 450 X10E9/L05/06/2025 2:22 PM EDT [facility]MPV7.97 - 12 fL05/06/2025 2:22 PM EDT [facility]ITALNeutrophils %69.1%05/06/2025 2:22 PM EDT [facility]ITALLymphocytes %22.7%05/06/2025 2:22 PM EDT [facility] HOSPITALMonocytes %7.1%05/06/2025 2:22 PM EDT [facility]ALEosinophils %0.7%05/06/2025 2:22 PM EDT [facility]ITALBasophils %0.4%05/06/2025 2:22 PM EDT [facility]ITALNeutrophils Absolute (A)7.1(H)1.5 - 6.6 10*3/05/06/2025 2:22 PM [facility]ALLymphocytes Absolute2.31.0 - 3.5 10*3/05/06/2025 2:22 PM [facility]ITALMonocytes Absolute0.70.0 - 0.9 10*3/05/06/2025 2:22 PM [facility]ALEosinophils Absolute0.10.0 - 0.4 10*3/05/06/2025 2:22 PM [facility]ITALBasophils Absolute0.00.0 - 0.2 10*3/05/06/2025 2:22 PM [facility]ITALDifferential TypeAUTOMATED HKYWHHNHIWVU42/29/2025 2:22 PM EDHOLZER HOSPITALpecimen (Source)Anatomical Location / LateralityCollection Method / VolumeCollection TimeReceived TimeBloodVenous blood / UnknownVenipuncture / Cvmbeyq2605/06/2025 2:10 PM EDT05/06/2025 2:11 PM EDT Narrative Authorizing ProviderResult TypeResult StatusMichael P Neverauskas DOLAB BLOOD ORDERABLESFinal ResultPerforming OrganizationAddressty/State/ZIP CodePhone Number [address] [place] [address], [place] * Duong Top On Ice (05/06/2025 2:09 PM EDT)ComponentValueRef RangeTest Method Analysis TimePerformed AtPathologist SignatureExtra TubeAuto Resulted 05/06/2025 4:01 PM EDHOLZER HOSPITALpecimen (Source) Anatomical Location / LateralityCollection Method / VolumeCollection Time Received TimeBloodVenous blood / Wufuzcd8405/06/2025 2:09 PM EDT05/06/2025 2:12 PM EDT Narrative Authorizing ProviderResult TypeResult StatusMichael P Neverauskas DOLAB BLOOD ORDERABLESFinal ResultPerforming OrganizationAddressty/State/ZIP CodePhone Number [address] [place] [address], [place] * Light Blue Top (05/06/2025 2:09 PM EDT)ComponentValueRef RangeTest Method Analysis TimePerformed AtPathologist SignatureExtra TubeAuto Resulted 05/06/2025 4:01 PM [facility]pec[facility] ([facility]) Anatomical Location / LateralityCollection Method / VolumeCollection Time Received TimeBloodVenous blood / Twdgccz3405/06/2025 2:09 PM EDT05/06/2025 2:12 PM EDT Narrative Authorizing ProviderResult TypeResult StatusMichael P Neverauskas DOLAB BLOOD ORDERABLESFinal ResultPerforming OrganizationAddIndiana Regional Medical Centerty/State/ZIP CodePhone Number [address] [place] [address], [place] * (ABNORMAL) C-reactive protein (05/06/2025 2:09 PM EDT)ComponentValueRef Range Test MethodAnalysis TimePerformed AtPathologist SignatureC REACTIVE PROTEIN1.8 (H)<=0.7 mg/dL05/06/2025 2:34 PM [facility] Specimen (Source)Anatomical Location / LateralityCollection Method / Volume Collection TimeReceived TimeBloodVenous blood / UnknownVenipuncture / Unknown 05/06/2025 2:09 PM EDT05/06/2025 2:11 PM EDT Narrative Authorizing ProviderResult TypeResult StatusMichaericardo Gómez DOLAB BLOOD ORDERABLESFinal ResultPerforming OrganizationAddressCity/State/ZIP CodePhone Number [facility] [address] [place] [address], * (ABNORMAL) Comprehensive metabolic panel (05/06/2025 2:09 PM EDT)Component ValueRef RangeTest MethodAnalysis TimePerformed AtPathologist SignatureSODIUM 943011 - 146 mmol/L05/06/2025 2:34 PM [facility] POTASSIUM4.03.5 - 5.0 mmol/L05/06/2025 2:34 PM [facility]ITALCHLORIDE10598 - 109 mmol/L05/06/2025 2:34 PM [facility]PITALCARBON BCMTPFH6771 - 32 mmol/L05/06/2025 2:34 PM [facility]ITALANION GAP75 - 15 mmol/L05/06/2025 2:34 PM EDT [facility]ITALBLOOD UREA QBDLAITQ858 - 23 mg/dL05/06/2025 2:34 PM [facility]OSPITALCREATININE0.940.40 - 1.00 mg/dL 05/06/2025 2:34 PM [facility]ITALComment:METHOD TRACEABLE TO IDNJ RRUXCCNQVELVPVE5579 - 99 mg/dL05/06/2025 2:34 PM EDT [facility]OSPITALCALCIUM8.68.5 - 10.5 mg/dL05/06/2025 2:34 PM [facility]ITALTOTAL PROTEIN7.66.0 - 8.0 g/dL 05/06/2025 2:34 PM [facility]ITALALBUMIN3.93.2 - 5.3 g/dL05/06/2025 2:34 PM [facility]ITALALKALINE CMORUTCPMCN1349 - 130 U/L05/06/2025 2:34 PM [facility]AST25<=41 U/L05/06/2025 2:34 PM [facility] ALT36(H)<=31 U/L05/06/2025 2:34 PM [facility] BILIRUBIN,TOTAL0.70.3 - 1.2 mg/dL05/06/2025 2:34 PM [facility]OSPITALEGFR Non-Race Rzcskgmhu16>=60 ml/min/1.73sq.m005/06/2025 2:34 PM [facility]ITALComment: eGFR not reported due to non-numeric value for Creatinine. Reported eGFR is based on the CKD-EPI 2020 equation that does not use a race coefficient. Specimen (Source)Anatomical Location / LateralityCollection Method / Volume Collection TimeReceived TimeBloodVenous blood / UnknownVenipuncture / Unknown 05/06/2025 2:09 PM EDT05/06/2025 2:11 PM EDT Narrative Authorizing ProviderResult TypeResult StatusMichael Gail Gómez DOLAB BLOOD ORDERABLESFinal ResultPerforming OrganizationAddressCity/State/ZIP CodePhone Number [facility] [address] [place] [address], from Last 3 Months Insurance Advance Directives * Full Code (Latest Code Status on File) Date ActivatedDate InactivatedComments03/17/2020 9:05 AM03/19/2020 1:38 PM * Full Code Date ActivatedDate InactivatedComments03/09/2020 9:23 PM03/10/2020 1:18 PM Care Teams Team MemberRelationshipSpecialtyStart DateEnd Date Rojelio Donato MD PCP - GeneralFamily Medicine01/24/20
== END 2025-07-30 01:11 | disposition home or self-care (01) ==
PROVIDERS: Emergency Provider Internal Medicine; PCP Family Medicine
DX: M43.6 Torticollis (principal)
CPT/HCPCS: 96372; 99284; J2360; J2919